=== PATIENT | male | born 1965 | race Caucasian/White ===

== ENCOUNTER 2016-08-14 02:53 | Observation (INO) | payer OTHER ==
[~2016-08-14] VITALS: Ht 180.3 cm; Wt 98.0 kg
[~2016-08-14 02:53] MED LIST: ALBUTEROL0.09 MG/A1 INH; AUGMENTIN 875 M1 TAB PO; AUGMENTIN 875875 MG PO; BACTRIM DS 8001 TAB PO; BENTYL20 MG PO; CIPRO 500MG TA500 MG PO; DICLOFENAC POTA50 M1 PO; ENDOCET 325 MG-1 TA1 PO; FLAG500 PO; FLOMAX0.4 M1 PO; GOOD SENSE ASPI81 M1 PO; HYDROCODONE/ACE1 TA1 PO; INDOMETHACIN25 MG PO; MEDROL DOSEPAK1 PAC PO; METRONIDAZOLE500 MG PO; MOTRIN 600 MG600 MG; MOTRIN600 MG PO; NEXIUM 40MG40 MG PO; PERCOCET 325 MG1 TA2 PO; PERCOCET 5-3251 EACH PO; PLAVIX 75MG TAB75 MG PO; PREDNISONE 20MG20 MG PO; PROTONIX 40MG T40 MG PO; TORADOL10 MG PO; TUMS500 MG PO; ULTRAM50 M1 PO; VICODIN5-300 PO; ZOFRAN ODT4 M1 SL
[2016-08-14 14:45] VITALS: BP 132/86
--- NOTE | 2016-08-14 15:13 | Admission Core Measures ---
Admission Meds I reviewed the following Meds: Current Medications Sig/Oz Start time Last Medication Dose Stop Time Status Admin Acetaminophen 650 MG Q6P PRN 08/14 1500 AC (Tylenol) Cefazolin Sodium 2 GM IQ8 08/14 1600 AC (Kefzol) 08/15 0029 N/A 1 UNIT (No Carrier) Docusate Sodium 100 MG BID 08/14 2200 AC (Colace) Heparin Sodium 5,000 UNIT Q8 08/14 2200 AC (Porcine) Hydromorphone HCl 1 MG Q2-3 HRS NEEDED.. 08/14 1500 AC (Dilaudid) Ketorolac 30 MG Q6-PRN PRN 08/14 1500 AC Tromethamine (Toradol) Ondansetron HCl 4 MG Q6P PRN 08/14 1500 AC (Zofran) Oxycodone/ 1 TAB Q4P PRN 08/14 1500 AC Acetaminophen (Percocet) Oxycodone/ 2 TAB Q4P PRN 08/14 1500 AC Acetaminophen (Percocet) Acute Coronary Syndrome Inclusion Criteria ACS Diagnosis No Inpatient Core Measures LDL Reminder: If No, please order W/I first 24hr of stay Congestive Heart Failure Inclusion Criteria CHF Diagnosis No Cerebrovascular accident Inclusion Criteria CVA/TIA Diagnosis No Inpatient Core Measures Bedside Swallow Eval Reminder: If BSE failed, place ST order Antithrombotic Reminder: Order Antithrombotic Medication by end of day 2 Antithrombotic Reminder: Document Reason Antithrombotic Not ordered by end of day 2 AFIB/Flutter Reminder: If Present, add to problem list AFIB/Flutter Reminder: Order Anticoag Medication for pts with AFIB/Flutter Atherosclerosis Reminder: If Present, add to problem list LDL Reminder: If No, please order W/I first 24hr of stay PT Order Reminder: If No, please order Venous thromboembolism Inpatient Core Measures VTE Risk Factors: Age > 40, Surgery VTE Prophylaxis Ordered Inpt Mech & Pharm No Mech VTE prophylaxis d/t No contraindications No VTE Pharm Prophylaxis d/t No contraindications Inclusion Criteria - Per Current guidelines, there needs to be overlap - treatment for the first 5 days of Warfarin therapy. - Parenteral Anticoagulation (IV or SC) needs to be - given along with Warfarin therapy. VTE Diagnosis No VTE Type NONE VTE Confirmed by (Test) NONE Problem List As ranked by this Provider includes Assessment & Plan 1. S/P repair of ventral hernia 2. Ventral hernia HOME MEDS Home Med List Diclofenac Potassium 50 MG TABLET 1 TAB PO TID PRN PAIN Oxycodone HCl/Acetaminophen (Percocet 5-325 MG Tablet) 1 EACH TABLET 1-2 TAB PO Q4P PRN PAIN Tramadol HCl (Ultram) 50 MG TABLET 1-2 TAB PO Q6P PRN PAIN
--- NOTE | 2016-08-14 15:26 | PN- General Surgery ---
Subjective Subjective: Reports "soreness". Just arrived from [facility]. Voided 125 mls. No nausea. Eager to try clears. Denies dizziness. No chest pains. No shortness of breath. Objective Vital Signs and I&Os Intake & Output 08/14 1600 08/14 0800 08/14 0000 08/13 1600 08/13 0800 08/13 0000 Intake Total Output Total Balance Patient 216 lb Weight vitals stable (pacu sheet reviewed) Physical Exam: General - alert & oriented x 3. comfortable. no acute distress. Lungs - clear bilaterally. no w/r/r. Cardiac - s1s2. reg. Abdomen - soft. abdominal binder in place. ROBE drain with scant bloody drainage. allison drain hidden under dressing. dressing c/d/i. Extremities - warm bilaterally. no c/c/e. calves soft and nontender b/l. athrombics active. Assessment/Plan Assessment/Plan This 51 year old white male is POD#0 s/p open repair ventral incisional hernia with mesh, JPx1, allison drainx1 advance diet as tolerated percocet/dilaudid/toradol prn pain control abdominal binder as desired for comfort hep sc - dvt ppx monitor ROBE drain. likely remove both the ROBE drain and allison prior to discharge in the morning ancef x 2 bulmaro-operatively will d/w Core Measures/Miscellaneous Venous Thromboembolism VTE Risk Factors: Age > 40, Smoking, Surgery VTE Contraindications: No Contraindications VTE Prophylaxis Ordered Inpt Mech & Pharm VTE Diagnosis: No VTE Type: NONE VTE Confirmed by (Test): NONE Beta Sara Is Beta Sara a Home Med? No Antibiotics Is Patient on Antibiotics? Yes If Yes: prophylaxis
[2016-08-14] MEDS ORDERED: PERCOCET 5-3251 EACH PO (15:28)
[2016-08-14] MEDS ORDERED: DOCUSATE SODIU100 M3 PO (15:28)
--- NOTE | 2016-08-14 15:32 | Patient Discharge Instructions ---
Discharge Instructions General Discharge Information You were seen/treated for: ventral incisional hernia You had these procedures: open repair ventral incisional hernia (08/14/16) Watch for these problems: fever>101.3, increased pain, redness/swelling/drainage Call Surgeon to remove: [facility] (around post-op day #10-14) No bath, but you may shower: Yes Other wound care: dry guaze dressing change daily, as needed Apply bacitracin to old drain site and at bottom of mid-line incision with each dressing change for 7 days. Diet Continue normal diet: Yes Recommended Diet: Regular Activity Full Activity/No Limits: No Activity Self Limited: Yes Pounds, do NOT lift more than: 10 Activity Limited to: Weight bear as tolerated Other activity limits: abdominal binder as desired for comfort Acute Coronary Syndrome Inclusion Criteria At DC or during hospital stay patient has or had the following: ACS DIAGNOSIS No Discharge Core Measures Meds if any: Prescribed or Continued at Discharge Meds if any: NOT Prescribed or Continued at Discharge Congestive Heart Failure Inclusion Criteria At DC or during hospital stay patient has or had the following: CHF DIAGNOSIS No Discharge Core Measures Meds if any: Prescribed or Continued at Discharge Meds if any: NOT Prescribed or Continued at Discharge Cerebrovascular accident Inclusion Criteria At DC or during hospital stay patient has or had the following: CVA/TIA Diagnosis No Discharge Core Measures Meds if any: Prescribed or Continued at Discharge Meds if any: NOT Prescribed or Continued at Discharge Venous thromboembolism Inclusion Criteria VTE Diagnosis No VTE Type NONE VTE Confirmed by (Test) NONE Discharge Core Measures - Per Current guidelines, there needs to be overlap - treatment for the first 5 days of Warfarin therapy. - If discharged on Warfarin prior to 5 days of - overlap therapy, the patient will need to be - assessed for post discharge needs including - *Post discharge parental anticoagulation - *Warfarin and/or parental anticoagulation education - *Follow up date to check INR post discharge At least 5 days overlap therapy as Inpatient No Meds if any: Prescribed or Continued at Discharge Note: Overlap Therapy is Warfarin and Anticoagulant Meds if any: NOT Prescribed or Continued at Discharge
[2016-08-14 17:22] VITALS: BP 132/92
[2016-08-14 19:33] VITALS: BP 138/90
[2016-08-14 21:30] VITALS: BP 126/90
[2016-08-15 01:48] VITALS: BP 104/70
[2016-08-15 06:29] VITALS: BP 130/80
--- NOTE | 2016-08-15 07:08 | PN- General Surgery ---
See Addendum Subjective Subjective: Patient complaining of abdominal pain that has not responded adequately to current pain regimen. He states that he has been having a difficult time taking a deep breath and also he feels that he has to cough and is unable to expectorate his chest congestion. He denies chest pain and shortness of breath. He denies nausea and vomitting. He denies flatus. He denies discomfort to bilateral upper and lower extremities. Objective Vital Signs and I&Os Vital Signs Date Time Temp Pulse Resp B/P Pulse O2 O2 Flow FiO2 Ox Delivery Rate 08/15 0629 99.3 92 20 130/80 94 Nasal 2.0L Cannula 08/15 0148 98.9 75 20 104/70 97 Nasal 2.0L Cannula 08/14 2130 98.3 65 20 126/90 97 Nasal 2.0L Cannula 08/14 1933 97.6 76 20 138/90 98 Nasal 2.0L Cannula 08/14 1722 98.1 77 20 132/92 99 Nasal 2.0L Cannula 08/14 1445 98.2 74 16 132/86 96 Nasal 2.0L Cannula 08/14 1445 96 Nasal 2.0L Cannula Intake & Output 08/15 0800 08/15 0000 08/14 1600 08/14 0800 08/14 0000 08/13 1600 Intake Total 950 Output Total 675 Balance 275 Intake, IV 800 Intake, Oral 150 Output, Urine 675 Patient 216 lb 216 lb Weight Physical Exam: General: Alert and oriented x3, no acute distress Cardiac: RRR, s1s2 Pulm: Bilateral upper lobe sounds, anterior auscultation, with expiratory wheezes Abdomen: Incisional tenderness, hypoactive bowel sounds, sanguinous drainage noted to inferior aspect of dressing, ROBE drain with sanguinous dressing, abdominal binder in place Extremities: Moves all extremities, distal sensation intact, bilateral calves soft and non-tender Assessment/Plan Assessment/Plan This is a 51 year old male POD 1, s/p repair ventral hernia -Be sure to give po pain medications, has percocet ordered q 4 prn but has been mainly receiving iv meds for pain relief -Continue to advance diet as tolerated -D/C IV fluid -Respiratory therapy to evaluate, consider nebulizer treatment if needed -Incentive spirometer -Wean O2 -OOB -Dr Cordon to see this am, may donald black and allison -Possible dc today if pain under control Core Measures/Miscellaneous Venous Thromboembolism VTE Risk Factors: Age > 40, Smoking, Surgery VTE Contraindications: No Contraindications VTE Prophylaxis [facility] VTE Diagnosis: No VTE Type: NONE VTE Confirmed by (Test): NONE Beta Sara Is Beta Sara a Home Med? No Antibiotics Is Patient on Antibiotics? Yes If Yes: prophylaxis
[2016-08-15 10:40] VITALS: BP 108/70
[2016-08-15 14:20] VITALS: BP 108/70
[2016-08-15 17:38] VITALS: BP 126/80
--- NOTE | 2016-08-15 20:14 | NUR ---
1540- ABDOMINAL DRESSING WITH BLOODY DRAINAGE AT DISTAL ASPECT OF DRESSING. PT COMPLAINS OF PAIN 8/10 AFTER PAIN MEDICATION. SURG RAN CABRERA NOTIFIED OF ABOVE AND TO ASSESS AT BEDSIDE. 1615- SURG RAN CABRERA AT BEDSIDE. DRESSING TO BE REINFORCED, NOT CHANGED. ABDOMINAL PAD PLACED TO REINFORCE DRESSING. NO NEW ORDERS FOR PAIN MEDICATION.
[2016-08-15 21:54] VITALS: BP 130/64
--- NOTE | 2016-08-16 07:12 | PN- General Surgery ---
Subjective Subjective: NAEO. Patient without new c/o. Pain controlled. Tolerating PO, passing flatus but no BM. OOB and ambulating. Denies CP/SOB. Objective Vital Signs and I&Os Vital Signs Date Time Temp Pulse Resp B/P Pulse O2 O2 Flow FiO2 Ox Delivery Rate 08/15 2153 99.8 85 20 130/64 94 Room Air 08/15 2012 91 Room Air 08/15 1755 92 Room Air 08/15 1738 99.2 91 20 126/80 08/15 1420 98.1 83 20 108/70 92 Nasal 2.0L Cannula 08/15 1040 97.6 70 20 108/70 92 Nasal 2.0L Cannula 08/15 0847 95 Nasal 2.0L Cannula 08/15 0830 Nasal 2.0L Cannula Intake & Output 08/16 0800 08/16 0000 08/15 1600 08/15 0800 08/15 0000 08/14 1600 Intake Total 350 1160 800 950 Output Total 110 35 520 675 Balance 240 1125 280 275 Intake, IV 400 800 800 Intake, Oral 350 760 0 150 Number 0 0 Bowel Movements Output, 10 35 45 Drainage Output, Urine 100 475 675 Patient 216 lb Weight Current Medications: Current Medications Sig/Oz Start time Last Medication Dose Route Stop Time Status Admin Acetaminophen 650 MG Q6P PRN 08/14 1500 AC PO Albuterol Sulfate 3 ML BID 08/15 1000 AC 08/15 INH 2011 Dextrose/Sodium 1,000 ML Q10H 08/14 1500 DC 08/15 Chloride IV 0130 Docusate Sodium 100 MG BID 08/14 220 AC 08/15 PO 210 Heparin Sodium 5,000 UNIT Q8 08/14 2199 AC 08/16 (Porcine) SC 0527 Hydromorphone HCl 1 MG Q2-3 HRS NEEDED.. 08/14 1500 AC 08/16 IV 0324 Ketorolac 30 MG .STK-MED ONE 08/15 2101 DC Tromethamine IM 08/15 2102 Ketorolac 30 MG Q6-PRN PRN 08/14 1500 AC 08/15 Tromethamine IV 210 Omeprazole 20 MG DAILY AC 08/15 1416 AC 08/16 PO 0527 Ondansetron HCl 4 MG Q6P PRN 08/14 1500 AC IV Oxycodone/ 1 TAB Q4P PRN 08/14 1500 AC Acetaminophen PO Oxycodone/ 2 TAB Q4P PRN 08/14 1500 AC 08/16 Acetaminophen PO 0530 Patient Medication 1 ED .STK-MED ONE 08/15 1338 DC Teaching ED 08/15 1339 Polyethylene Glycol 17 GM DAILY 08/15 1604 AC 08/15 PO 1755 Senna/Docusate Sodium 1 TAB DAILY 08/15 1604 AC 08/15 PO 1755 Assessment/Plan Assessment/Plan 51yo M POD#2 s/p open ventral hernia repair with ROBE drain placement and [place]. AVSS, patient progressing well. - Pain control - Dressing changed bedside. Daily dressing changes by RN. - Possibly DC ROBE drain and/or allison drain - I/O's - continue regular diet - OOB and ambulate - DC planning - Will d/w attending Core Measures/Miscellaneous Venous Thromboembolism VTE Risk Factors: Age > 40, Smoking, Surgery VTE Contraindications: No Contraindications VTE Prophylaxis Ordered Inpt Mech & Pharm VTE Diagnosis: No VTE Type: NONE VTE Confirmed by (Test): NONE Beta Sara Is Beta Sara a Home Med? No Antibiotics Is Patient on Antibiotics? No
[2016-08-16 07:29] VITALS: BP 120/70
--- NOTE | 2016-08-16 12:15 | Operative Report ---
Operative/Inv Procedure Report Surgery Date: 08/14/16 Name of Procedure: Open mesh repair of ventral incisional hernia, along with bilateral advancement rectus muscular fascial flap reconstruction. Pre-Operative Diagnosis: Ventral incisional hernia Post-Operative Diagnosis: Same Estimated Blood Loss: [place] Surgeon/Front Counter Attendant: JAMIE QUINTERO,DANO TONG Anesthesia: general endotracheal tube Operative/Procedure Note Note: Patient was placed on the OR table in the supine position. After successful induction of general anesthesia, another timeout was done, antibiotics given, the abdomen was clipped prepped and draped in the usual sterile fashion. The hernia was essentially beneath the entire length of the laparotomy scar. This attenuated scar was infiltrated local anesthetic and then the incision was made with a 10 blade. This was deepened with cautery through the subcutaneous fat and the herniated bowel and omentum and overlying sac were dissected circumferentially off the fascia, defining the true edges of the defect. To do this the thickened attenuated sac was mostly excised and the adherent omentum to the anterior peritoneal surface was also along with some adhesions between the sac and the peritoneum and the bowel, we needed to clear off beyond the edges of the defect to make room for the mesh. As mentioned essentially the whole laparotomy incision was herniated with the rectus muscle retracted laterally, measuring roughly 18 cm long, but the muscle itself was intact but at this point could not be pulled to the midline without significant tension. After clearing off all the edges we laid the dual sided elliptical ventral X mesh on the bowel, actually 2 of them end-to-end a 12 cm long and 14 cm. Piece of these together with interrupted 2-0 Prolene sutures. Then we would gently pull remnants of fascia over the mesh and tack it down in multiple places with short runs of 0 Maxon, interrupted 0 Vicryl in interrupted 2-0 Prolene sutures the anus to tack the undersurface of the rectus to the mesh, trying to stay symmetric, some areas especially on the ends we were able to close all the way to the midline and some towards the middle still left mesh exposed. Then to create the advancement flaps I deliberately cut into the rectus sheath anteriorly about an inch off the medial edges all the way around and then you would mobilize that fascia to the midline and close it again with a combination of Maxon Prolene and Vicryl as mentioned above, the rectus muscle was advanced bilaterally to the midline, each side moving 3-4 cm each, covering both the defect and the mesh completely. Then this was covered by sewing together remnants of excised hernia sac which included some remnants of Bio, we also inserted a round Chan-Hobson drain on top of the muscle reconstruction underneath the subcutaneous closure and then on top in the thin subcutaneous layer we placed a Zofia just under the skin which was reapproximated with nroma having brought it together and a few areas with interrupted 3-0 Vicryl sutures subdermally. This was covered with gauze and tape the ROBE exited laterally and secured with a 3-0 nylon suture. EBL minimal lap and sponge counts correct wound expectancy clean IV fluids crystalloid complications none patient tolerated the procedure well was awakened extubated returned to the recovery room in satisfactory condition.
--- NOTE | 2016-08-16 13:10 | Event Note ---
Event Note Event Note: ROBE drain and Zofia drain dc'd bedside. ROBE drain taken off of bulb suction and sutures cut prior to removal. Sites dressed with sterile gauze and bacitracin. Patient tolerated procedure well.
[2016-08-16 13:14] VITALS: BP 130/70
== END 2016-08-16 14:00 ==
LOC: ENRESERVDT → ENRESERVTM → STS 02:53 → PACUH 11:13 → ENPENDDIS 11:13 → PACUH 11:13 → 2NA 14:35
PROVIDERS: ADMIT Surgery
DX: K43.2 Incisional hernia without obstruction or gangrene (principal); F17.200 Nicotine dependence, unspecified, uncomplicated; K21.9 Gastro-esophageal reflux disease without esophagitis
CPT/HCPCS: 1255; 1263; 1328; 1425; 1530; 1748; 96372; C1781; G0378; J0131; J0690; J1170; J1200; J1644; J1885; J2405; J7042

== ENCOUNTER 2017-11-22 07:36 | Inpatient (IN) | payer OTHER ==
[~2017-11-22] VITALS: Ht 182.9 cm; Wt 89.0 kg
[~2017-11-22 07:36] MED LIST changes: +DOCUSATE SODIU100 M3 PO
[2017-11-22 09:33] LABS: ABSOLUTE BASOPHIL COUNT 0 /CUMM (0.0-0.2); ABSOLUTE EOSINOPHIL COUNT 0.2 /CUMM (0.0-0.7); ABSOLUTE GRANULOCYTE CT 7.4 /CUMM (1.4-6.5); ABSOLUTE LYMPH COUNT 1.6 /CUMM (1.2-3.4); ABSOLUTE MONOCYTE COUNT 0.7 /CUMM (0.10-0.60); BASOPHIL % 0.4 % (0.0-2.0); EOSINOPHIL % 1.6 % (0-5); GRANULOCYTE % 74.7 % (42.2-75.2); HEMATOCRIT 47.8 % (42-52); MEAN CORPUSCULAR HGB 30.8 PG (27.0-31.0); MEAN CORPUSCULAR HGB CONC 34.5 G/DL (33.0-37.0); MEAN CORPUSCULAR VOLUME 89.4 FL (80.0-94.0); MEAN PLATELET VOLUME 8.1 FL (7.4-10.4); PLATELET COUNT 192 /CUMM (130-400); RBC DISTRIBUTION WIDTH 13.9 % (11.5-14.5); RED BLOOD CELL CT 5.34 /CUMM (4.70-6.10); WHITE BLOOD CELL COUNT 9.9 /CUMM (4.8-10.8)
--- NOTE | 2017-11-22 09:59 | ED GI/GU/ABDOMINAL COMPLAINT ---
History of Present Illness General Chief Complaint: Abdominal Pain/Flank Pain Stated Complaint: RIGHT SIDED ABD PAIN, X 3 DAYS Source: patient, family, old records Exam Limitations: no limitations Vital Signs & Intake/Output Vital Signs & Intake/Output Vital Signs Date Time Temp Pulse Resp B/P B/P Pulse O2 O2 Flow FiO2 Mean Ox Delivery Rate 11/22 1548 60 16 152/95 100 Room Air 11/22 1340 97.5 54 18 153/90 98 Room Air 11/22 1145 65 18 147/97 99 Room Air 11/22 1044 98.4 88 18 140/70 97 Room Air 11/22 0904 99 Room Air 11/22 0752 98.5 89 18 143/94 97 Room Air Allergies Coded Allergies: meperidine (From DEMEROL) ("I GOT VERY MEAN" 12/08/15) Reconcile Medications No Known Home Medications Triage Note: PT STATES HE IS GETTING BAD PAIN IN HIS LEFT SIDE THAT STARTED SATURDAY. PT REPORTS THE PAIN USE TO COME AND GO AND NOW IT JUST STAYS THERE. PT DENIES DIFFICULTY URINATING. Triage Nurses Notes Reviewed? yes Duration: constant, continues in ED Timing: recent history Quality/Severity: aching, sharpness, severe Location: right lower quadrant, right upper quadrant Radiation: no radiation Activities at Onset: rest Prior Abdominal Problems: similar symptoms Past Sexual History: Unobtainable at this time Modifying Factors: Worsens With: coughing, lying down, movement, palpation. Associated Symptoms: abdominal pain, fever/chills, nausea/vomiting HPI: 2-3 days prior to admission patient complains of right upper quadrant discomfort described as sharp constant worse with movement palpation associated with nausea and chills. Prior to admission the pain increased in severity. He denies fever chills vomiting diarrhea chest pain cough shortness breath headache dysuria rash bleeding. Past History Travel History Traveled to [place] past 21 day No Medical History Any Pertinent Medical History? 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 FHx: emphysema FATHER, . FH: diabetes mellitus Hx Contributory? No Review of Systems Review of Systems Constitutional: Reports: see HPI, chills, malaise. EENTM: Reports: no symptoms. Respiratory: Reports: no symptoms. Cardiovascular: Reports: no symptoms. GI: Reports: see HPI, abdominal pain, nausea. Genitourinary: Reports: no symptoms. Musculoskeletal: Reports: no symptoms. Skin: Reports: no symptoms. Neurological/Psychological: Reports: no symptoms. Hematologic/Endocrine: Reports: no symptoms. Immunologic/Allergic: Reports: no symptoms. All Other Systems: Reviewed and Negative Physical Exam Physical Exam General Appearance: well developed/nourished, alert, awake, anxious, moderate distress Head: atraumatic, normal appearance Eyes: Bilateral: normal appearance, PERRL, EOMI, normal inspection. Ears, Nose, Throat, Mouth: hearing grossly normal, moist mucous membrane Neck: normal inspection, supple, full range of motion, normal alignment, no midline tenderness Respiratory: normal breath sounds, chest non-tender, no respiratory distress, quiet respiration, lungs clear Cardiovascular: regular rate/rhythm, normal peripheral pulses, norml femoral pulses equa Peripheral Pulses: 4+ carotid (R), 4+ carotid (L) Gastrointestinal: soft, no organomegaly, guarding, rebound, tenderness Male Genitals: normal genitalia Back: normal inspection, normal range of motion, no vertebral tenderness Extremities: normal range of motion, no ligament instability Neurologic/Psych: no motor/sensory deficits, awake, alert, oriented x 3, normal gait, normal mood/affect, 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 No Sepsis Present: No Sepsis Focused Exam Completed? No Progress Differential Diagnosis: diverticulitis, gastritis, hernia, pancreatitis, PUD/ GERD, UTI/pyelo Plan of Care: Orders Procedure Date/time Status Nothing by Mouth 11/22 D Active Pathway - chart 11/22 1402 Active House Staff 11/22 1402 Active Patient Data 11/22 1402 Active Code Status 11/22 1402 Active Patient Data 11/22 1350 Active OXYGEN SETUP (GEN) 11/22 1150 Active Saline Lock 11/22 1150 Active Admit to inpatient 11/22 1150 Active Vital Signs 11/22 1150 Active Activity/Ambulation 11/22 1150 Active Code Status 11/22 1150 Complete LACTIC ACID 11/22 1136 Active Intake & Output 11/22 0903 Active LIPASE 11/22 0836 Complete LACTIC ACID 11/22 0836 Complete COMPREHENSIVE METABOLIC PANEL 11/22 0836 Complete CBC WITHOUT DIFFERENTIAL 11/22 0836 Complete URINALYSIS 11/22 0756 Complete VTE Mechanical Prophylaxis 11/22 UNK Active Current Medications Sig/Oz Start time Last Medication Dose Stop Time Status Admin Lidocaine 1 PAT DAILY 11/22 1515 AC (Lidoderm) Laboratory Tests 11/22/17 0922: Anion Gap 9, Estimated GFR > 60, BUN/Creatinine Ratio 17.3, Glucose 91, Lactic Acid 0.9, Calcium 9.4, Total Bilirubin 0.5, AST 14 L, ALT 22, Alkaline Phosphatase 80, Total Protein 7.4, Albumin 4.1, Globulin 3.3, Albumin/Globulin Ratio 1.2, Lipase 620 H, CBC w Diff NO MAN DIFF REQ, RBC 5.34, MCV 89.4, MCH 30.8, MCHC 34.5, RDW 13.9, MPV 8.1, Gran % 74.7, Lymphocytes % 16.6 L, Monocytes % 6.7, Eosinophils % 1.6, Basophils % 0.4, Absolute Granulocytes 7.4 H, Absolute Lymphocytes 1.6, Absolute Monocytes 0.7 H, Absolute Eosinophils 0.2 , Absolute Basophils 0 11/22/17 0801: Urine Color YEL, Urine Clarity CLEAR, Urine pH 6.0, Ur Specific [place] >= 1.030 , Urine Protein NEG, Urine Ketones NEG, Urine Nitrite NEG, Urine Bilirubin NEG, Urine Urobilinogen 0.2, Ur Leukocyte Esterase NEG, Ur Microscopic SEDIMENT EXAMINED, Urine RBC 3-5, Urine WBC 5-10 H, Ur Epithelial Cells FEW, Urine Mucus FEW, Urine Hemoglobin MOD H, Urine Glucose NEG Diagnostic Imaging: Viewed by Me: CT Scan. Discussed w/RAD: CT Scan. Radiology Impression: No acute abnormality. No change from the prior exam. Status post cholecystectomy. Stable mild intrahepatic and extrahepatic biliary ductal dilatation. Initial ED EKG: none Departure Departure Time of Disposition: 1137 Disposition: STILL A PATIENT Condition: Stable Clinical Impression Primary Impression: Pancreatitis, acute Secondary Impressions: Dehydration Referrals: Rosalio Bar MD (PCP/Family) Departure Forms: Customer Survey General Discharge Information Prescriptions: Current Visit Scripts No Known Home Medications Admission Note Spoke With: Rosalio Bar MD Documentation of Exam: Documentation of any treatments & extenuating circumstances including Concerns Regarding Discharge (functional status, medication knowledge or non-compliance, living conditions, etc.) that warrant an admission rather than observation: uncontrollable pain NPO IV hydration IV analgesia serial lab exam GI evaluation medication adjustment continuing care discharge planning
--- NOTE | 2017-11-22 11:31 | CT SCAN REPORT ---
EXAMINATION: CT ABDOMEN AND PELVIS WITH CONTRAST CLINICAL INFORMATION: Right upper quadrant pain and tenderness. History of multiple abdominal surgeries over the last 2 years. COMPARISON: CT scan of the abdomen and pelvis dated 07/11/2017. TECHNIQUE: Multidetector volumetric imaging was performed of the abdomen and pelvis following IV administration of 94 mL of Optiray 320 intravenous contrast. Sagittal and coronal reformatted images were obtained on the technologist's workstation. DLP: 515.06 mGy-cm FINDINGS: LUNG BASES: There is minor bibasilar subsegmental atelectasis. LIVER, GALLBLADDER, AND BILIARY TREE: The liver is normal in size, shape, and attenuation. No focal hepatic lesion is present. The gallbladder is surgically absent. There is stable mild intrahepatic and extrahepatic biliary ductal dilatation. PANCREAS: Unremarkable. SPLEEN: Unremarkable. ADRENAL GLANDS: Unremarkable. KIDNEYS AND URETERS: The kidneys are normal in size, shape, and attenuation. No hydronephrosis, hydroureter, or calculi seen. No perinephric stranding. BLADDER: Unremarkable. GASTROINTESTINAL TRACT: The stomach and small bowel are unremarkable. There is no bowel obstruction. There is no colonic wall thickening or inflammatory change. The appendix is normal. There are distal colonic anastomotic sutures, unchanged. ABDOMINAL WALL: No significant hernia is appreciated. Postsurgical changes are noted in the anterior abdominal wall. LYMPH NODES: Normal. VASCULAR: Atherosclerosis of the abdominal aorta and common iliac arteries. Normal caliber aorta. Ectasia of the common iliac arteries, left greater than right. PELVIC VISCERA: Coarse calcifications in the prostate. OSSEOUS STRUCTURES: No acute abnormality. Stable mild degenerative changes in the spine and hips. IMPRESSION: No acute abnormality. No change from the prior exam. Status post cholecystectomy. Stable mild intrahepatic and extrahepatic biliary ductal dilatation.
--- NOTE | 2017-11-22 13:58 | History & Physical ---
See Addendum Veronica Tamayo MD 11/22/17 0637: General Information and HPI MD Statement: I have seen and personally examined KEISHA MARION and documented this H&P. The patient is a 52 year old M who presented with a patient stated chief complaint of [abdominal pain]. Source of Information: patient Exam Limitations: no limitations History of Present Illness: He is 52-year-old man with past medical history of diverticulitis, kidney stones , gallstones, reversible ischemia on nuclear stress test status post cardiac cath recently in 2014 presented to the ED with a chief complaint of abdominal pain. Patient was in usual state of health until 2 days ago, following which she started developing acute 8 x 10 right upper quadrant pain radiating to the right suprapubic region. The following day patient started developing nausea with no vomiting. He denies abdominal trauma, fever, chills, weakness, chest pain, shortness of breath, pain in his pelvic region. Patient had multiple recurrent diverticulitis in the past and was operated for the same. Patient had a Pippa procedure done with temporary colostomy followed by revision surgery. 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 FHx: emphysema FATHER, . FH: diabetes mellitus Psychosocial History Where do you live? Home Who Do You Live With? self Services at Home: Nursing Primary Language: Macedonian Smoking Status: Current Everyday Smoker ETOH Use: denies use Illicit Drug Use: denies illicit drug use Functional Ability ADLs Independent: dressing, eating, toileting, bathing. Ambulation: independent IADLs Independent: shopping, housework, finances, food prep, telephone, transportation , medication admin. Sexual History Past Sexual History Unobtainable at this time Review of Systems Review of Systems Constitutional: Reports: no symptoms, see HPI. Cardiovascular: Reports: no symptoms. Respiratory: Reports: no symptoms. GI: Reports: abdominal pain, nausea. Genitourinary: Reports: dysuria. Musculoskeletal: Reports: joint pain. Exam & Diagnostic Data Last 24 Hrs of Vital Signs/I&O Vital Signs Date Time Temp Pulse Resp B/P B/P Pulse O2 O2 Flow FiO2 Mean Ox Delivery Rate 11/22 1340 97.5 54 18 153/90 98 Room Air 11/22 1145 65 18 147/97 99 Room Air 11/22 1044 98.4 88 18 140/70 97 Room Air 11/22 0904 99 Room Air 11/22 0752 98.5 89 18 143/94 97 Room Air Intake & Output 11/22 1600 11/22 0800 11/22 0000 Intake Total 1000 Output Total Balance 1000 Intake, IV 1000 Patient 190 lb Weight Weight Reported by Patient Measurement Method Physical Exam General Appearance Alert, Oriented X3, Cooperative, No Acute Distress HEENT PERRLA Neck No JVD, No thryomegaly Cardiovascular Normal S1, Normal S2, No Murmurs Lungs Normal Air Movement Last 24 Hrs of Labs/Steven: Laboratory Tests 11/22/17 0922: Anion Gap 9, Estimated GFR > 60, BUN/Creatinine Ratio 17.3, Glucose 91, Lactic Acid 0.9, Calcium 9.4, Total Bilirubin 0.5, AST 14 L, ALT 22, Alkaline Phosphatase 80, Total Protein 7.4, Albumin 4.1, Globulin 3.3, Albumin/Globulin Ratio 1.2, Lipase 620 H, CBC w Diff NO MAN DIFF REQ, RBC 5.34, MCV 89.4, MCH 30.8, MCHC 34.5, RDW 13.9, MPV 8.1, Gran % 74.7, Lymphocytes % 16.6 L, Monocytes % 6.7, Eosinophils % 1.6, Basophils % 0.4, Absolute Granulocytes 7.4 H, Absolute Lymphocytes 1.6, Absolute Monocytes 0.7 H, Absolute Eosinophils 0.2 , Absolute Basophils 0 11/22/17 0801: Urine Color YEL, Urine Clarity CLEAR, Urine pH 6.0, Ur Specific [place] >= 1.030 , Urine Protein NEG, Urine Ketones NEG, Urine Nitrite NEG, Urine Bilirubin NEG, Urine Urobilinogen 0.2, Ur Leukocyte Esterase NEG, Ur Microscopic SEDIMENT EXAMINED, Urine RBC 3-5, Urine WBC 5-10 H, Ur Epithelial Cells FEW, Urine Mucus FEW, Urine Hemoglobin MOD H, Urine Glucose NEG Assessment/Plan Assessment: He is 52-year-old man with past medical history of diverticulitis, kidney stones , gallstones, reversible ischemia on nuclear stress test status post cardiac cath recently in 2014 presented to the ED with a chief complaint of abdominal pain. Admission vitals: Temperature 97.5, pulse rate 54, respiratory rate 18, blood pressure 153/90, saturation 98 at room air Admission labs Hemoglobin 16.5, WBC 9.9, platelet count 192, sodium 143, potassium 4, BUNs 19, creatinine 1.1, Lactic acid 0.9, lipase 620. Assessment and plan Abdominal pain for evaluation Given the patient's symptoms and location my differentials are being pancreatitis, small bowel obstruction. Patient also has a 10-10 cm red lesion in his right groin. It appears to be herpes zoster/line. We placed an infectious disease consult. Yash Sanchez MD saw the patient and thinks says it is more of line and started him on doxycycline 100 twice a day. Lyme titer was sent. Resident Dr. Celaya and a condyloma spoke to her heater engineer helper Dr. Lawrence over the phone and discussed with him about the red lesion and redness in the left suprapubic region. Street Car Mechanic thinks that it is more of zoster and wanted to start him on Valtrex 1 mg 3 times a day for 7 days. We will continue current management and follow up with Lyme titer and response of the lesion with Valtrex /doxycycline. Code-full code Dictated prophylaxis-heparin As Ranked By This Provider Problem List: 1. Abdominal pain 2. RLQ abdominal pain Core Measures/Misc (03/10) Acute Coronary Syndrome ACS Diagnosis: No Congestive Heart Failure Congestive Heart Failure Diagnosis No Cerebrovascular Accident CVA/TIA Diagnosis: No VTE (View Protocol) VTE Risk Factors Age>40 No Mechanical VTE Prophylaxis d/t Other No VTE Pharm Prophylaxis d/t Other Sepsis (View protocol) Sepsis Present: No If YES complete Sepsis Event Note If YES complete Sepsis Event Note Elinor Post MD 11/22/17 0456: General Information and HPI MD Statement: I have seen and personally examined KEISHA MARION and documented this H&P. The patient is a 52 year old M who presented with a patient stated chief complaint of [pain in abdomen]. Source of Information: patient, family, old records Exam Limitations: no limitations Core Measures/Misc (03/10) Sepsis (View protocol) If YES complete Sepsis Event Note If YES complete Sepsis Event Note Resident Review Statement Resident Statement: examined this patient, discussed with agriculture intern, agreed with agriculture intern Other Findings: Patient is a 52-year-old male, chronic smoker(1PPD x 25yrs) with past medical history of asthma, GERD, dyslipidemia, history of nephrolithiasis status post lithotripsy, history of cholelithiasis status post cholecystectomy, history of rotator cuff repair, history of left carpal tunnel release, history of diverticulitis with recurrent micro perforation,underwent a Flower's procedure( August 2015 ) f/breversal of colostomy( December 2015), complicated by ventral incisional hernia status post mesh repair, admitted with chief complaints of pain in right upper and lower quadrant of the abdomen since last 3 days. According to the patient he was relatively all right 2 days ago and he woke up with the pain on circus hand. His pain was 3-4/10 and was gradually progressive and intermittent in nature. He denies for taking any medication and was not able to sleep because of the pain. Yesterday he started having nausea all over the day but not able to throw up. He was constipated and in the morning today he started having diarrhea and his pain got aggravated, thatwhy he is here. Of note he said that he was having constipation and tenesmus and nausea yesterday and today he had one loose bowel movement but denies any blood in the stool, mucus secretion, lactose intolerance,. He denies any fever, chills, vomiting, chest pain, palpitation, eating outside, trauma, blood in the stool. ED course -vital signs at the time of admission -temperature 98.5, pulse 89, respiratory rate 18, blood pressure 143/94, SPO2 97% on room air. On physical examination -he was very anxious, oral cavity normal, erythema of neck and the upper part of the chest, chest bilateral clear, heart S1-S2 normal, abdomen soft -multiple scar perez superficially and thickness of underlying intestine can be palpated, erythematous 10 x 10 cm rash on lower abdomen along with bilateral inguinal lymph node enlargement, superficial tenderness on the lower back and external rotation of right thigh. Blood workup showed -hemoglobin 16.5, hematocrit 47.8, platelet count 192, granulocytes 74.7, lymphocytes 16.6, basophils 0.4, serum sodium 143, potassium 4.0, chloride 106, carbon DEXA 28, anion gap 9, BUN 19, creatinine 1.1, glucose 91, lactic acid 0.9, calcium 9.4, total bilirubin 0.5, AST 14, ALT 22, alkaline phosphatase 80, albumin 4.1, urinalysis showed WBC 5-10, moderate hemoglobin. Assessment and plan - Patient with multiple medical problems presented with complaint of right upper and lower sided abdominal pain associated with nausea. He was having a rash in the lower abdomen, which was not typical herpetic rash, but he has superficial tenderness on the front and the back. CT scan did not show any evidence of fracture collection in the abdomen, there was dilatation of intra-and extrahepatic ducts with elevation of lipase but there was no any evidence of pancreatitis on the CT scan. He does not have any fracture, or prolapse of the disc with support his back pain. We were thinking the possibility of herpetic lesion leading to irritation of the nerve. Discussed with , advised to start patient on tablet doxycycline and wait for dermatologic input. We also talked to Dr. Roach for pain can be due to intestinal adhesions, but he thinks we should treat symptomatically. We will place dermatology and GI consult for further evaluation and management of his abdominal pain. His urinalysis did show evidence of WBC and moderate hemoglobin. He does have history of nephrolithiasis. Abdomen pain of unknown etiology possibility of pancreatitis cannot be excluded - * We will admit the patient to general medicine floor * Pain management according to the pain scale * Dermatologic consult -further evaluation to rule out herpes; will update. * Follow-up Lyme titer * Tablet doxycycline 100 mg twice daily * Follow-up GI consult for nonspecific elevation of lipase along with abdominal pain -Placed * Stool for occult blood Skin rash -? Lyme/Herpes * Dermatologic consult -further evaluation to rule out herpes; discussed with Dr Bauer, he thinks it doesnt look like herpes and neither lyme, but we cannot rule out possibility of non specific herpetic rash as patient is having pain. So we will start patient on Valtrex 1mg TID x 7 days. He want follow up of patient with in office on Saturday. * Follow-up Lyme titer * Tablet doxycycline 100 mg twice daily DVT prophylaxis -ALPs/heparin CODE STATUS -full code Diet -heart healthy diet
--- NOTE | 2017-11-22 16:13 | Cons- General Surgery ---
General Information and HPI Consulting Request Date of Consult: 11/22/17 Requested By: Rosalio Bar MD History of Present Illness: Patient presents to the emergency room with 2-3 days of progressive right lower quadrant and suprapubic abdominal pain. His appetite is suppressed but there is no association with his pain to eating. No nausea vomiting or change to his bowel function. No fevers chills or sweats. Mild dysuria. Allergies/Medications Allergies: Coded Allergies: meperidine (From DEMEROL) ("I GOT VERY MEAN" 12/08/15) Home Med List: No Known Home Medications Current Medications: Current Medications Sig/Oz Start time Last Medication Dose Route Stop Time Status Admin Lidocaine 1 PAT DAILY 11/22 1515 AC EXT Morphine Sulfate 0 .STK-MED ONE 11/22 1358 DC .ROUTE Morphine Sulfate 4 MG ONCE ONE 11/22 1345 DC / IV 11/22 1346 1403 Morphine Sulfate 0 .STK-MED ONE 11/22 1048 DC .ROUTE Morphine Sulfate 4 MG ONCE ONE 11/22 1015 DC 11/22 IV 11/22 1016 1043 Morphine Sulfate 0 .STK-MED ONE 11/22 0903 DC .ROUTE Morphine Sulfate 4 MG ONCE ONE 11/22 0845 DC / IV 06/ 0846 0855 Ondansetron HCl 0 .STK-MED ONE 11/22 0903 DC .ROUTE Ondansetron HCl 4 MG ONCE ONE 11/22 0845 DC / IV / 0846 0855 Sodium Chloride 1,000 ML BOLUS ONE 11/22 1145 DC / IV 11/22 1244 1145 Sodium Chloride 1,000 ML BOLUS ONE 11/22 0845 DC / IV 11/22 0944 0855 Past History Medical History Neurological: NONE EENT: NONE Cardiovascular: NONE Respiratory: NONE Gastrointestinal: diverticulitis, GERD, LEFT COLOSTOMY Hepatic: cholelithiasis Renal: nephrolithiasis (s/p lithotripsy) Musculoskeletal: gout, ULNAR L ELBOW SURGERY R ROTATOR CUFF SURGERY Psychiatric: anxiety Endocrine: NONE Blood Disorders: NONE Cancer(s): NONE 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 FHx: emphysema FATHER, . FH: diabetes mellitus Psychosocial History Where Do You Live? Home Who Do You Live With? self Services at Home: Nursing Primary Language: Macedonian Smoking Status: Current Everyday Smoker ETOH Use: denies use Illicit Drug Use: denies illicit drug use Functional Ability ADLs Independent: dressing, eating, toileting, bathing. Ambulation: independent IADLs Independent: shopping, housework, finances, food prep, telephone, transportation , medication admin. Review of Systems Review of Systems: No exertional chest pain or exertional dyspnea abdominal pain. HPI mild dysuria remainder 12 points negative Exam & Diagnostic Data Vital Signs and I&O Vital Signs Date Time Temp Pulse Resp B/P B/P Pulse O2 O2 Flow FiO2 Mean Ox Delivery Rate 11/22 1548 60 16 152/95 100 Room Air 11/22 1340 97.5 54 18 153/90 98 Room Air 11/22 1145 65 18 147/97 99 Room Air 11/22 1044 98.4 88 18 140/70 97 Room Air 11/22 0904 99 Room Air 11/22 0752 98.5 89 18 143/94 97 Room Air Intake & Output 11/22 1600 11/22 0800 11/22 0000 11/21 1600 11/21 0800 11/21 0000 Intake Total 1000 Output Total Balance 1000 Intake, IV 1000 Patient 190 lb Weight Weight Reported by Patient Measurement Method Physical Exam: General: Looks his stated age normal body habitus no distress HEENT: Anicteric PERRLA EOMI Abdomen: Soft mild tenderness suprapubic and right lower quadrant without guarding. No hernias no mass Extremities no cyanosis clubbing or edema Last 24 Hours of Labs: Laboratory Tests 11/22 11/22 0922 0801 Chemistry Sodium (137 - 145 mmol/L) 143 Potassium (3.5 - 5.1 mmol/L) 4.0 Chloride (98 - 107 mmol/L) 106 Carbon Dioxide (22 - 30 mmol/L) 28 Anion Gap (5 - 16) 9 BUN (9 - 20 mg/dL) 19 Creatinine (0.7 - 1.2 mg/dL) 1.1 Estimated GFR (>60 ml/min) > 60 BUN/Creatinine Ratio (7 - 25 %) 17.3 Glucose (65 - 99 mg/dL) 91 Lactic Acid (0.7 - 2.1 mmol/L) 0.9 Calcium (8.4 - 10.2 mg/dL) 9.4 Total Bilirubin (0.2 - 1.3 mg/dL) 0.5 AST (17 - 59 U/L) 14 L ALT (21 - 72 U/L) 22 Alkaline Phosphatase (< 127 U/L) 80 Total Protein (6.3 - 8.2 g/dL) 7.4 Albumin (3.5 - 5.0 g/dL) 4.1 Globulin (1.9 - 4.2 gm/dL) 3.3 Albumin/Globulin Ratio (1.1 - 2.2 %) 1.2 Lipase (23 - 300 U/L) 620 H Hematology CBC w Diff NO MAN DIFF REQ WBC (4.8 - 10.8 /CUMM) 9.9 RBC (4.70 - 6.10 /CUMM) 5.34 Hgb (14.0 - 18.0 G/DL) 16.5 Hct (42 - 52 %) 47.8 MCV (80.0 - 94.0 FL) 89.4 MCH (27.0 - 31.0 PG) 30.8 MCHC (33.0 - 37.0 G/DL) 34.5 RDW (11.5 - 14.5 %) 13.9 Plt Count (130 - 400 /CUMM) 192 MPV (7.4 - 10.4 FL) 8.1 Gran % (42.2 - 75.2 %) 74.7 Lymphocytes % (20.5 - 51.1 %) 16.6 L Monocytes % (1.7 - 9.3 %) 6.7 Eosinophils % (0 - 5 %) 1.6 Basophils % (0.0 - 2.0 %) 0.4 Absolute Granulocytes (1.4 - 6.5 /CUMM) 7.4 H Absolute Lymphocytes (1.2 - 3.4 /CUMM) 1.6 Absolute Monocytes (0.10 - 0.60 /CUMM) 0.7 H Absolute Eosinophils (0.0 - 0.7 /CUMM) 0.2 Absolute Basophils (0.0 - 0.2 /CUMM) 0 Urines Urine Color (YEL,AMB,STR) YEL Urine Clarity (CLEAR) CLEAR Urine pH (5.0 - 8.0) 6.0 Ur Specific [place] (1.001 - 1.035) >= 1.030 Urine Protein (NEG,<30 MG/DL) NEG Urine Ketones (NEG) NEG Urine Nitrite (NEG) NEG Urine Bilirubin (NEG) NEG Urine Urobilinogen (0.1 - 1.0 EU/dl) 0.2 Ur Leukocyte Esterase (NEG) NEG Ur Microscopic SEDIMENT EXAMINED Urine RBC (0 - 5 /HPF) 3-5 Urine WBC (0 - 2 /HPF) 5-10 H Ur Epithelial Cells (NONE,FEW) FEW Urine Mucus (FEW,NONE) FEW Urine Hemoglobin (NEG) MOD H Urine Glucose (N MG/DL) NEG Imaging Results: CT scan of the abdomen pelvis was personally reviewed. The findings show no evidence of intra-abdominal inflammatory process. Specifically there is no diverticulitis or appendicitis. His incisional hernia repair is intact without evidence of recurrence Assessment/Plan Assessment/Plan Patient with back and abdominal pain unclear etiology. There is no evidence of appendicitis or recurrent diverticulitis. His hernia repair performed by Domingo Cordon MD is intact without evidence of recurrence. No surgically treatable disease. From my standpoint patient can eat. Defer further workup to primary team. Please call with concerns Consult Acknowledgment - Thank you for your consult request.
--- NOTE | 2017-11-22 16:41 | PN- Student ---
Subjective Subjective: HPI: 52 y/o M presented to the ER with a cc of abdominal. Patient reported being in his usual state of health until two day prior to admission started to have abdominal pain located in the right lower quadrant with no radiation. He mention that the pain started about 3-4/10 and progressively increased in intensity to 10/10. During this time he reported having nausea, but no vomiting. No change in eating habits, but did mentioned having less apetitie since pain started. Also noted having contipation for couple of days and then eventually soft bowel movements. He reported that this is different that his baseline after colectomy. PMHX: diverticulitis, Gerd, cholelithiasis, nephrolithiasis s/p lithotripsy, gout, anxiety, reversible ischemia on nuclear stress test status post cardiac cath recently in 2014 PSHX: left colectomy-Hartmans procedure with colostomy s/p reversal (09/05/15), cholecystectomy, left elbow surgery, rotator cuff surgery, SHx: smoker (pack a day), alcohol occasionally, denied illlicit drugs Sexual Hx: nonactive sexually, no hx of sexually transmitted disease FamHx: Dad Emphysema Mom OR, DM +ROS: joint pain, dysuria -ROS: headache, blurry vision, sore throat, chest pain, SOB, cough, weight change, abdominal trauma, fever, chills, weakness, groin pain Objective Objective: Vital Signs Date Time Temp Pulse Resp B/P B/P Pulse O2 O2 Flow FiO2 Mean Ox Delivery Rate 11/22 1548 60 16 152/95 100 Room Air 11/22 1340 97.5 54 18 153/90 98 Room Air 11/22 1145 65 18 147/97 99 Room Air 11/22 1044 98.4 88 18 140/70 97 Room Air 11/22 0904 99 Room Air 11/22 0752 98.5 89 18 143/94 97 Room Air Intake & Output 11/22 1600 11/22 0800 11/22 0000 Intake Total 1000 Output Total Balance 1000 Intake, IV 1000 Patient 190 lb Weight Weight Reported by Patient Measurement Method PE: General: patient under distress with pain and during interview seem to get angry with some questions, alert and oriented HEENT: NC/AT PERRLA, EOMI, No cervical lymphadenopaty Skin: round patchy redness around the neck, 6x6 cm mildly tender crusty whitish with redness around the borders patchy lesion with no pustules or vesicle\ Lungs: symmetrical chest expasion, clear breath sounds without added sound. Back: No skil lesion over that back, severe tender to palpation over the right posterior superior iliac spine. CVS: regular rate and rythm, normal S1 and S2 Abd: presented bowel sounds, soft, nondistended, tenderness over the LLQ and RUQ radiating to suprapubic region, no guarding. No hernias no mass Genitourinary: no visible lesion or discharge, nontender right lymphadenopathy Neuro: intact CN II-XII, right raise leg examination limited due to back pain, intact sensation over x4 extremities, no numbness or pain in the extremities. Internal and external rotation of the right leg produced kaci pain to the right back. Results Results: Laboratory Tests 11/22/17 0922: Anion Gap 9, Estimated GFR > 60, BUN/Creatinine Ratio 17.3, Glucose 91, Lactic Acid 0.9, Calcium 9.4, Total Bilirubin 0.5, AST 14 L, ALT 22, Alkaline Phosphatase 80, Total Protein 7.4, Albumin 4.1, Globulin 3.3, Albumin/Globulin Ratio 1.2, Lipase 620 H, CBC w Diff NO MAN DIFF REQ, RBC 5.34, MCV 89.4, MCH 30.8, MCHC 34.5, RDW 13.9, MPV 8.1, Gran % 74.7, Lymphocytes % 16.6 L, Monocytes % 6.7, Eosinophils % 1.6, Basophils % 0.4, Absolute Granulocytes 7.4 H, Absolute Lymphocytes 1.6, Absolute Monocytes 0.7 H, Absolute Eosinophils 0.2 , Absolute Basophils 0 11/22/17 0801: Urine Color YEL, Urine Clarity CLEAR, Urine pH 6.0, Ur Specific [place] >= 1.030 , Urine Protein NEG, Urine Ketones NEG, Urine Nitrite NEG, Urine Bilirubin NEG, Urine Urobilinogen 0.2, Ur Leukocyte Esterase NEG, Ur Microscopic SEDIMENT EXAMINED, Urine RBC 3-5, Urine WBC 5-10 H, Ur Epithelial Cells FEW, Urine Mucus FEW, Urine Hemoglobin MOD H, Urine Glucose NEG Assessment/Plan Assessment: 52 y/o M with PMHx of diverticulitis, GERD, cholelithiasis, nephrolithiasis s/p lithotripsy, gout, anxiety, reversible ischemia on nuclear stress test status post cardiac cath presented to the ER with a cc of abdominal. Patient admitted to [facility] for further evaluation. During admission: Vitals stable. CBC did not showed any sign of active infection. Chemistry only reported an elevated lipase of 620. UA showed pyuria of 5-10 wbc, +hemoglobin, no bacteria nor le. At this point, back and abdominal pain is of unclear etiology. CT was review with radiologist and agreed with no acute abnormality. DDx:no recent trauma, no fracture, Renal infection or stone (no fever, no leukocytosis), disk disease (no evidence in CT), adhesion (unlikely with a negative CT), inguinal hernia ( unlikely due to negative CT), oval/circular skin rash (looks like yeast infection in the skin fold, lyme, herpes-right inguinal lymphadenopathy but is more maculopapular than vesicular/pustular). Plan: Abdomianl pain (unclear etiology) -Monitor vitals -Measure I&O -Zofran PRN -regular diet for now Back pain (unclear etiology) -Lidocaine patch Skin lesion -Patient started on Doxy and azyclovir
--- NOTE | 2017-11-22 17:14 | Cons- Infect Disease ---
General Information and HPI Consulting Request Date of Consult: 11/22/17 Requested By: Rosalio Bar MD Reason for Consult: Rule out shingles Source of Information: patient, old records History of Present Illness: This is a 52-year-old man with a history of hypertension, GERD, diverticulitis, status post Flower's procedure, with reversal, status post mesh repair of a ventral incisional hernia, nephrolithiasis, status post lithotripsy, cholelithiasis, status post cholecystectomy and gout admitted today after presenting to the emergency room with a two-day history of right upper quadrant pain, radiating to the right lower quadrant and suprapubic area, associated with nausea and body aches without fevers or chills. On admission he was afebrile. Examination revealed a rash in the suprapubic area, of unknown duration. Laboratory data revealed a white blood cell count of 10,000, BUN/creatinine 19 and 1.1, lipase 620, with normal liver enzymes. Urinalysis 3-5 RBC/5-[address] of the abdomen and pelvis with contrast revealed stable mild intrahepatic and extrahepatic biliary ductal dilatation. He was not aware of the rash but does report pruritus in the suprapubic area over the last several months. He denies any recent tick bites but did find a tick on his dog. He denies any recent hiking or camping. 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 Allergies/Medications Allergies: Coded Allergies: meperidine (From DEMEROL) ("I GOT VERY MEAN" 12/08/15) Home Med List: No Known Home Medications Past History Travel History Traveled to [place] past 21 day No Medical History Neurological: NONE EENT: NONE Cardiovascular: hypertension Respiratory: NONE Gastrointestinal: diverticulitis, GERD Hepatic: cholelithiasis Renal: nephrolithiasis (s/p lithotripsy) Musculoskeletal: gout, ULNAR L ELBOW SURGERY R ROTATOR CUFF SURGERY Psychiatric: anxiety Endocrine: NONE Blood Disorders: NONE Cancer(s): NONE MANAGER SUPPLY/Reproductive: NONE History of MRSA: No History of VRE: No History of CDIFF: No Surgical History Surgical History: cholecystectomy, hernia repair-ventral, left cubital tunnel release LEFT COLOSTOMY 09/05/15 S/P HARTMANS PROCEDURE with reversal; R ROTATOR CUFF REPAIR L ELBOW SURGERY Family History Relations & Conditions If Any: MOTHER, , Age 50-60; Cause: Myocardial infarction. FHx: emphysema FATHER, . FH: diabetes mellitus Psychosocial History Where Do You Live? Home Who Do You Live With? self Services at Home: Nursing Primary Language: Turkmen Smoking Status: Current Everyday Smoker ETOH Use: denies use Illicit Drug Use: denies illicit drug use Functional Ability ADLs Independent: dressing, eating, toileting, bathing. Ambulation: independent IADLs Independent: shopping, housework, finances, food prep, telephone, transportation , medication admin. Review of Systems Review of Systems All Other Systems: Reviewed and Negative Exam & Diagnostic Data Last 24 Hrs of Vital Signs/I&O Vital Signs Date Time Temp Pulse Resp B/P B/P Pulse O2 O2 Flow FiO2 Mean Ox Delivery Rate 11/22 1548 60 16 152/95 100 Room Air 11/22 1340 97.5 54 18 153/90 98 Room Air 11/22 1145 65 18 147/97 99 Room Air 11/22 1044 98.4 88 18 140/70 97 Room Air 11/22 0904 99 Room Air 11/22 0752 98.5 89 18 143/94 97 Room Air Intake & Output 11/22 1600 11/22 0800 11/22 0000 Intake Total 1000 Output Total Balance 1000 Intake, IV 1000 Patient 190 lb Weight Weight Reported by Patient Measurement Method Physical Exam Other Physical Findings: He is awake and alert in no acute distress. He is afebrile. Skin reveals a localized maculopapular rash in the suprapubic area, measuring 4 x 6 cm. HEENT exam is negative. Neck is supple with no adenopathy. Lungs are clear. Heart regular rhythm with no murmur. Abdomen is soft, tender on palpation over the right upper quadrant and, to a lesser extent, the right lower quadrant and suprapubic area, with no guarding or rebound, with positive bowel sounds. Back no CVA tenderness. Extremities no cyanosis, clubbing or edema. Neuro is without focality. Last 24 Hours of Lab Results: Laboratory Tests 11/22 11/22 0922 0801 Chemistry Sodium (137 - 145 mmol/L) 143 Potassium (3.5 - 5.1 mmol/L) 4.0 Chloride (98 - 107 mmol/L) 106 Carbon Dioxide (22 - 30 mmol/L) 28 Anion Gap (5 - 16) 9 BUN (9 - 20 mg/dL) 19 Creatinine (0.7 - 1.2 mg/dL) 1.1 Estimated GFR (>60 ml/min) > 60 BUN/Creatinine Ratio (7 - 25 %) 17.3 Glucose (65 - 99 mg/dL) 91 Lactic Acid (0.7 - 2.1 mmol/L) 0.9 Calcium (8.4 - 10.2 mg/dL) 9.4 Total Bilirubin (0.2 - 1.3 mg/dL) 0.5 AST (17 - 59 U/L) 14 L ALT (21 - 72 U/L) 22 Alkaline Phosphatase (< 127 U/L) 80 Total Protein (6.3 - 8.2 g/dL) 7.4 Albumin (3.5 - 5.0 g/dL) 4.1 Globulin (1.9 - 4.2 gm/dL) 3.3 Albumin/Globulin Ratio (1.1 - 2.2 %) 1.2 Lipase (23 - 300 U/L) 620 H Hematology CBC w Diff NO MAN DIFF REQ WBC (4.8 - 10.8 /CUMM) 9.9 RBC (4.70 - 6.10 /CUMM) 5.34 Hgb (14.0 - 18.0 G/DL) 16.5 Hct (42 - 52 %) 47.8 MCV (80.0 - 94.0 FL) 89.4 MCH (27.0 - 31.0 PG) 30.8 MCHC (33.0 - 37.0 G/DL) 34.5 RDW (11.5 - 14.5 %) 13.9 Plt Count (130 - 400 /CUMM) 192 MPV (7.4 - 10.4 FL) 8.1 Gran % (42.2 - 75.2 %) 74.7 Lymphocytes % (20.5 - 51.1 %) 16.6 L Monocytes % (1.7 - 9.3 %) 6.7 Eosinophils % (0 - 5 %) 1.6 Basophils % (0.0 - 2.0 %) 0.4 Absolute Granulocytes (1.4 - 6.5 /CUMM) 7.4 H Absolute Lymphocytes (1.2 - 3.4 /CUMM) 1.6 Absolute Monocytes (0.10 - 0.60 /CUMM) 0.7 H Absolute Eosinophils (0.0 - 0.7 /CUMM) 0.2 Absolute Basophils (0.0 - 0.2 /CUMM) 0 Urines Urine Color (YEL,AMB,STR) YEL Urine Clarity (CLEAR) CLEAR Urine pH (5.0 - 8.0) 6.0 Ur Specific [place] (1.001 - 1.035) >= 1.030 Urine Protein (NEG,<30 MG/DL) NEG Urine Ketones (NEG) NEG Urine Nitrite (NEG) NEG Urine Bilirubin (NEG) NEG Urine Urobilinogen (0.1 - 1.0 EU/dl) 0.2 Ur Leukocyte Esterase (NEG) NEG Ur Microscopic SEDIMENT EXAMINED Urine RBC (0 - 5 /HPF) 3-5 Urine WBC (0 - 2 /HPF) 5-10 H Ur Epithelial Cells (NONE,FEW) FEW Urine Mucus (FEW,NONE) FEW Urine Hemoglobin (NEG) MOD H Urine Glucose (N MG/DL) NEG Last 24 Hours of Steven Results: CT of the abdomen and pelvis with IV contrast reveals stable mild intrahepatic and extrahepatic biliary ductal dilatation Assessment/Plan Assessment/Plan Impression: This is a 52-year-old male status post Flower's procedure for diverticulitis, with reversal, status post mesh repair of a ventral incisional hernia, nephrolithiasis, status post lithotripsy, and cholelithiasis, status post cholecystectomy, admitted today with a two-day history of right upper quadrant pain, radiating to the right lower quadrant and suprapubic area, associated with nausea and body aches, found to be afebrile with a normal white blood cell count and an elevated lipase, with his exam notable for a localized suprapubic, nonpruritic rash and with a CT of the abdomen and pelvis negative for any acute process. The etiology of his right sided abdominal pain is unclear. He does have an elevated lipase, raising concern for pancreatitis, though the pancreas appears normal on the CT scan. The etiology of his rash is unclear. He reports pruritus for several months but he has not noticed the rash, raising concern for a more acute process. It does appear to be maculopapular and, with the report of pruritus, a folliculitis could be considered. Less likely, but possible, would be Lyme disease, given the circular appearance and suggestion of central clearing. Suggestion: 1. Dermatology input 2. Lyme titer 3. Further evaluation of his right upper quadrant pain and elevated lipase per Medicine 4. Begin Doxycycline 100 mg p.o. every 12 hours Consult Acknowledgment - Thank you for your consult request.
[2017-11-22 17:53] VITALS: BP 129/88
--- NOTE | 2017-11-22 19:11 | PN- Att Addend ---
Attending Addendum Attending Brief Note 52-year-old white male history of hypertension GERD diverticulitis kidney stones status post cholecystectomy and the gout has had several abdominal surgeries comes in with a two-day history of abdominal pain started up in the right upper quadrant then radiated to the right side of the suprapubic area in the emergency room on the physical was noted to have a papular rash has been itchy for several days. In the emergency room showed a CAT scan of the abdomen not showing any acute abnormalities. He had a slight elevation of the lipase will know what the significance of this is related he had ID and surgical consultations, recommendations were given regarding antibiotic therapy. His white count was 9900 Current Medications Sig/Oz Start time Last Medication Dose Route Stop Time Status Admin Doxycycline Hyclate 100 MG BID 11/22 2100 AC PO Lidocaine 1 PAT DAILY 11/22 1515 AC 11/22 EXT 1826 Morphine Sulfate 0 .STK-MED ONE 11/22 1358 DC .ROUTE Morphine Sulfate 4 MG ONCE ONE 11/22 1345 DC 11/22 IV 11/22 1346 1403 Morphine Sulfate 0 .STK-MED ONE 11/22 1048 DC .ROUTE Morphine Sulfate 4 MG ONCE ONE 11/22 1015 DC / IV 11/22 1016 1043 Morphine Sulfate 0 .STK-MED ONE 11/22 0903 DC .ROUTE Morphine Sulfate 4 MG ONCE ONE 11/22 0845 DC / IV 11/22 0846 0855 Ondansetron HCl 0 .STK-MED ONE 11/22 0903 DC .ROUTE Ondansetron HCl 4 MG ONCE ONE 11/22 0845 DC 11/22 IV 11/22 0846 0855 Oxycodone/ 1 TAB Q6P PRN 11/22 1815 AC 11/22 Acetaminophen PO 1828 Sodium Chloride 1,000 ML BOLUS ONE 11/22 1145 DC / IV 11/22 1244 1145 Sodium Chloride 1,000 ML BOLUS ONE 11/22 0845 DC 11/22 IV 11/22 0944 0855 Valacyclovir HCl 1,000 MG TID 11/22 2100 AC PO Laboratory Tests 11/22/17 1736: Lyme Disease Antibody Cancelled 11/22/17 1136: Lactic Acid Cancelled 11/22/17 0922: Anion Gap 9, Estimated GFR > 60, BUN/Creatinine Ratio 17.3, Glucose 91, Lactic Acid 0.9, Calcium 9.4, Total Bilirubin 0.5, AST 14 L, ALT 22, Alkaline Phosphatase 80, Total Protein 7.4, Albumin 4.1, Globulin 3.3, Albumin/Globulin Ratio 1.2, Amylase 88, Lipase 620 H, CBC w Diff NO MAN DIFF REQ, RBC 5.34, MCV 89.4, MCH 30.8, MCHC 34.5, RDW 13.9, MPV 8.1, Gran % 74.7, Lymphocytes % 16.6 L , Monocytes % 6.7, Eosinophils % 1.6, Basophils % 0.4, Absolute Granulocytes 7.4 H, Absolute Lymphocytes 1.6, Absolute Monocytes 0.7 H, Absolute Eosinophils 0.2, Absolute Basophils 0, Lyme Disease Antibody Pending 11/22/17 0801: Urine Color YEL, Urine Clarity CLEAR, Urine pH 6.0, Ur Specific [place] >= 1.030 , Urine Protein NEG, Urine Ketones NEG, Urine Nitrite NEG, Urine Bilirubin NEG, Urine Urobilinogen 0.2, Ur Leukocyte Esterase NEG, Ur Microscopic SEDIMENT EXAMINED, Urine RBC 3-5, Urine WBC 5-10 H, Ur Epithelial Cells FEW, Urine Mucus FEW, Urine Hemoglobin MOD H, Urine Glucose NEG Vital Signs Date Time Temp Pulse Resp B/P B/P Pulse O2 O2 Flow FiO2 Mean Ox Delivery Rate 11/22 1753 98.7 60 20 129/88 99 Room Air 11/22 1722 97.7 78 18 120/80 97 Room Air Room Air 11/22 1548 60 16 152/95 100 Room Air 11/22 1340 97.5 54 18 153/90 98 Room Air 11/22 1145 65 18 147/97 99 Room Air 11/22 1044 98.4 88 18 140/70 97 Room Air 11/22 0904 99 Room Air 11/22 0752 98.5 89 18 143/94 97 Room Air Intake & Output 11/22 1600 11/22 0800 11/22 0000 Intake Total 1000 Output Total Balance 1000 Intake, IV 1000 Patient 190 lb Weight Weight Reported by Patient Measurement Method
[2017-11-22 23:14] VITALS: BP 102/70
[2017-11-23 06:52] VITALS: BP 118/70
--- NOTE | 2017-11-23 12:02 | PN- Pulmonary ---
Subjective HPI/Critical Care Issues: Still Has sig abd pain GI eval ongoing Surg did see him Objective Current Medications: Current Medications Sig/Oz Start time Last Medication Dose Route Stop Time Status Admin Calcium Carbonate 500 MG DAILY 11/23 1147 AC 11/23 PO 1156 Doxycycline Hyclate 100 MG BID 11/22 2100 AC 11/23 PO 1000 Lidocaine 1 PAT DAILY 11/22 1515 AC 11/23 EXT 0806 Morphine Sulfate 0 .STK-MED ONE 11/22 1358 DC .ROUTE Morphine Sulfate 4 MG ONCE ONE 11/22 1345 DC 11/22 IV 11/22 1346 1403 Nicotine 7 MG DAILY 11/22 2300 AC 11/23 TOP 1001 Oxycodone/ 1 TAB Q6P PRN 11/22 1815 AC 11/23 Acetaminophen PO 1157 Valacyclovir HCl 1,000 MG TID 11/22 2100 AC 11/23 PO 1000 Vital Signs & I&O Last 24 Hrs of Vitals and I&O: Laboratory Tests 11/22 11/22 11/22 1736 1136 0922 Chemistry Sodium (137 - 145 mmol/L) 143 Potassium (3.5 - 5.1 mmol/L) 4.0 Chloride (98 - 107 mmol/L) 106 Carbon Dioxide (22 - 30 mmol/L) 28 Anion Gap (5 - 16) 9 BUN (9 - 20 mg/dL) 19 Creatinine (0.7 - 1.2 mg/dL) 1.1 Estimated GFR (>60 ml/min) > 60 BUN/Creatinine Ratio (7 - 25 %) 17.3 Glucose (65 - 99 mg/dL) 91 Lactic Acid (0.7 - 2.1 mmol/L) Cancelled 0.9 Calcium (8.4 - 10.2 mg/dL) 9.4 Total Bilirubin (0.2 - 1.3 mg/dL) 0.5 AST (17 - 59 U/L) 14 L ALT (21 - 72 U/L) 22 Alkaline Phosphatase (< 127 U/L) 80 Total Protein (6.3 - 8.2 g/dL) 7.4 Albumin (3.5 - 5.0 g/dL) 4.1 Globulin (1.9 - 4.2 gm/dL) 3.3 Albumin/Globulin Ratio (1.1 - 2.2 %) 1.2 Amylase (30 - 110 U/L) 88 Lipase (23 - 300 U/L) 620 H Hematology CBC w Diff NO MAN DIFF REQ WBC (4.8 - 10.8 /CUMM) 9.9 RBC (4.70 - 6.10 /CUMM) 5.34 Hgb (14.0 - 18.0 G/DL) 16.5 Hct (42 - 52 %) 47.8 MCV (80.0 - 94.0 FL) 89.4 MCH (27.0 - 31.0 PG) 30.8 MCHC (33.0 - 37.0 G/DL) 34.5 RDW (11.5 - 14.5 %) 13.9 Plt Count (130 - 400 /CUMM) 192 MPV (7.4 - 10.4 FL) 8.1 Gran % (42.2 - 75.2 %) 74.7 Lymphocytes % (20.5 - 51.1 %) 16.6 L Monocytes % (1.7 - 9.3 %) 6.7 Eosinophils % (0 - 5 %) 1.6 Basophils % (0.0 - 2.0 %) 0.4 Absolute Granulocytes (1.4 - 6.5 /CUMM) 7.4 H Absolute Lymphocytes (1.2 - 3.4 /CUMM) 1.6 Absolute Monocytes (0.10 - 0.60 /CUMM) 0.7 H Absolute Eosinophils (0.0 - 0.7 /CUMM) 0.2 Absolute Basophils (0.0 - 0.2 /CUMM) 0 Serology Lyme Disease Antibody Cancelled Pending 11/22 0801 Urines Urine Color (YEL,AMB,STR) YEL Urine Clarity (CLEAR) CLEAR Urine pH (5.0 - 8.0) 6.0 Ur Specific [place] (1.001 - 1.035) >= 1.030 Urine Protein (NEG,<30 MG/DL) NEG Urine Ketones (NEG) NEG Urine Nitrite (NEG) NEG Urine Bilirubin (NEG) NEG Urine Urobilinogen (0.1 - 1.0 EU/dl) 0.2 Ur Leukocyte Esterase (NEG) NEG Ur Microscopic SEDIMENT EXAMINED Urine RBC (0 - 5 /HPF) 3-5 Urine WBC (0 - 2 /HPF) 5-10 H Ur Epithelial Cells (NONE,FEW) FEW Urine Mucus (FEW,NONE) FEW Urine Hemoglobin (NEG) MOD H Urine Glucose (N MG/DL) NEG Vital Signs Date Time Temp Pulse Resp B/P B/P Pulse O2 O2 Flow FiO2 Mean Ox Delivery Rate 11/23 0652 97.9 60 16 118/70 97 Room Air 11/22 2314 98.3 60 19 102/70 94 Room Air 11/22 1753 98.7 60 20 129/88 99 Room Air 11/22 1722 97.7 78 18 120/80 97 Room Air Room Air 11/22 1548 60 16 152/95 100 Room Air 11/22 1340 97.5 54 18 153/90 98 Room Air Intake & Output 11/23 1600 11/23 0800 06 0000 Intake Total 300 300 Output Total Balance 300 300 Intake, Oral 300 300 Patient 202 lb 190 lb Weight Weight Bed scale Reported by Patient Measurement Method Impression/Plan Impression/Plan Impression/Plan: This is a 52-year-old male status post Flower's procedure for diverticulitis, with reversal, status post mesh repair of a ventral incisional hernia, nephrolithiasis, status post lithotripsy, and cholelithiasis, status post cholecystectomy, admitted today with a two-day history of right upper quadrant pain, radiating to the right lower quadrant and suprapubic area, associated with nausea and body aches, found to be afebrile with a normal white blood cell count and an elevated lipase, with his exam notable for a localized suprapubic, nonpruritic rash and with a CT of the abdomen and pelvis negative for any acute process. Now has rt upper qdt pain cause unclear so far Rash has improved Plan Cont current meds Await all other bus info consultant input today Cont doxy and po valcyclovir Will follow
[2017-11-23 14:59] VITALS: BP 118/77
--- NOTE | 2017-11-23 15:32 | Cons- Gastroenterology ---
General Information and HPI Consulting Request Date of Consult: 11/23/17 Requested By: Rosalio Bar MD Reason for Consult: Abdominal pain Source of Information: patient Allergies/Medications Allergies: Coded Allergies: meperidine (From DEMEROL) ("I GOT VERY MEAN" 12/08/15) Home Med List: No Known Home Medications Current Medications: Current Medications Sig/Oz Start time Last Medication Dose Route Stop Time Status Admin Calcium Carbonate 500 MG DAILY 11/23 1147 AC 11/23 PO 1156 Doxycycline Hyclate 100 MG BID 11/22 2100 AC 11/23 PO 1000 Lidocaine 1 PAT DAILY 11/22 1515 AC 11/23 EXT 0806 Nicotine 7 MG DAILY 11/22 2300 AC 11/23 TOP 1001 Oxycodone/ 1 TAB Q6P PRN 11/22 1815 AC 11/23 Acetaminophen PO 1157 Valacyclovir HCl 1,000 MG TID 11/22 2100 AC 11/23 PO 1514 Past History Travel History Traveled to [place] past 21 day No Medical History Blood Transfusion Hx: No Neurological: NONE EENT: NONE Cardiovascular: hypertension Respiratory: NONE Gastrointestinal: diverticulitis, GERD Hepatic: cholelithiasis Renal: nephrolithiasis (s/p lithotripsy) Musculoskeletal: gout, ULNAR L ELBOW SURGERY R ROTATOR CUFF SURGERY Psychiatric: anxiety Endocrine: NONE Blood Disorders: NONE Cancer(s): NONE 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 FHx: emphysema FATHER, . FH: diabetes mellitus Psychosocial History Where Do You Live? Home Who Do You Live With? self Services at Home: Nursing Primary Language: Panamanian Smoking Status: Current Everyday Smoker ETOH Use: denies use Illicit Drug Use: denies illicit drug use Functional Ability ADLs Independent: dressing, eating, toileting, bathing. Ambulation: independent IADLs Independent: shopping, housework, finances, food prep, telephone, transportation , medication admin. Exam & Diagnostic Data Vital Signs and I&O Vital Signs Date Time Temp Pulse Resp B/P B/P Pulse O2 O2 Flow FiO2 Mean Ox Delivery Rate 11/23 1459 98.1 60 20 118/77 98 06/02 0652 97.9 60 16 118/70 97 Room Air 11/22 2314 98.3 60 19 102/70 94 Room Air 11/22 1753 98.7 60 20 129/88 99 Room Air 11/22 1722 97.7 78 18 120/80 97 Room Air Room Air 11/22 1548 60 16 152/95 100 Room Air Intake & Output 11/23 0400 11/22 0400 Intake Total 8578 428 2929 Output Total Balance 1101 989 7056 Intake, IV 1000 Intake, Oral 1100 300 Patient 202 lb 190 lb 190 lb Weight Weight Bed scale Reported by Patient Reported by Patient Measurement Method Results Pertinent Lab Results: Laboratory Tests 11/22 11/22 11/22 1736 1136 0922 Chemistry Sodium (137 - 145 mmol/L) 143 Potassium (3.5 - 5.1 mmol/L) 4.0 Chloride (98 - 107 mmol/L) 106 Carbon Dioxide (22 - 30 mmol/L) 28 Anion Gap (5 - 16) 9 BUN (9 - 20 mg/dL) 19 Creatinine (0.7 - 1.2 mg/dL) 1.1 Estimated GFR (>60 ml/min) > 60 BUN/Creatinine Ratio (7 - 25 %) 17.3 Glucose (65 - 99 mg/dL) 91 Lactic Acid (0.7 - 2.1 mmol/L) Cancelled 0.9 Calcium (8.4 - 10.2 mg/dL) 9.4 Total Bilirubin (0.2 - 1.3 mg/dL) 0.5 AST (17 - 59 U/L) 14 L ALT (21 - 72 U/L) 22 Alkaline Phosphatase (< 127 U/L) 80 Total Protein (6.3 - 8.2 g/dL) 7.4 Albumin (3.5 - 5.0 g/dL) 4.1 Globulin (1.9 - 4.2 gm/dL) 3.3 Albumin/Globulin Ratio (1.1 - 2.2 %) 1.2 Amylase (30 - 110 U/L) 88 Lipase (23 - 300 U/L) 620 H Hematology CBC w Diff NO MAN DIFF REQ WBC (4.8 - 10.8 /CUMM) 9.9 RBC (4.70 - 6.10 /CUMM) 5.34 Hgb (14.0 - 18.0 G/DL) 16.5 Hct (42 - 52 %) 47.8 MCV (80.0 - 94.0 FL) 89.4 MCH (27.0 - 31.0 PG) 30.8 MCHC (33.0 - 37.0 G/DL) 34.5 RDW (11.5 - 14.5 %) 13.9 Plt Count (130 - 400 /CUMM) 192 MPV (7.4 - 10.4 FL) 8.1 Gran % (42.2 - 75.2 %) 74.7 Lymphocytes % (20.5 - 51.1 %) 16.6 L Monocytes % (1.7 - 9.3 %) 6.7 Eosinophils % (0 - 5 %) 1.6 Basophils % (0.0 - 2.0 %) 0.4 Absolute Granulocytes (1.4 - 6.5 /CUMM) 7.4 H Absolute Lymphocytes (1.2 - 3.4 /CUMM) 1.6 Absolute Monocytes (0.10 - 0.60 /CUMM) 0.7 H Absolute Eosinophils (0.0 - 0.7 /CUMM) 0.2 Absolute Basophils (0.0 - 0.2 /CUMM) 0 Serology Lyme Disease Antibody Cancelled Pending 11/22 0801 Urines Urine Color (YEL,AMB,STR) YEL Urine Clarity (CLEAR) CLEAR Urine pH (5.0 - 8.0) 6.0 Ur Specific [place] (1.001 - 1.035) >= 1.030 Urine Protein (NEG,<30 MG/DL) NEG Urine Ketones (NEG) NEG Urine Nitrite (NEG) NEG Urine Bilirubin (NEG) NEG Urine Urobilinogen (0.1 - 1.0 EU/dl) 0.2 Ur Leukocyte Esterase (NEG) NEG Ur Microscopic SEDIMENT EXAMINED Urine RBC (0 - 5 /HPF) 3-5 Urine WBC (0 - 2 /HPF) 5-10 H Ur Epithelial Cells (NONE,FEW) FEW Urine Mucus (FEW,NONE) FEW Urine Hemoglobin (NEG) MOD H Urine Glucose (N MG/DL) NEG Imaging/Other Studies: CT scan of abdomen and pelvis: No acute abnormality. No change from the prior exam. Status post cholecystectomy. Stable mild intrahepatic and extrahepatic biliary ductal dilatation. Assessment/Plan Assessment/Recommendations: Abdominal wall/flank pain with neuropathic quality. No evidence of intra- abdominal or retroperitoneal process, by history/examination/imaging. The mildly elevated lipase is nonspecific, and there is no clinical evidence of pancreatitis. Agree with differential diagnosis to include zoster, Lyme disease , radicular process, etc. Recommendations * Regular diet * Neuromodulator such as gabapentin * Await Lyme titer * Continue valacyclovir * Dermatology evaluation of rash Consult Acknowledgment - Thank you for your consult request.
[2017-11-23 20:39] LABS: ABSOLUTE BASOPHIL COUNT 0 /CUMM (0.0-0.2); ABSOLUTE EOSINOPHIL COUNT 0.1 /CUMM (0.0-0.7); ABSOLUTE GRANULOCYTE CT 4.5 /CUMM (1.4-6.5); ABSOLUTE LYMPH COUNT 1.9 /CUMM (1.2-3.4); ABSOLUTE MONOCYTE COUNT 0.5 /CUMM (0.10-0.60); BASOPHIL % 0.5 % (0.0-2.0); EOSINOPHIL % 2.1 % (0-5); GRANULOCYTE % 64.4 % (42.2-75.2); HEMATOCRIT 46.1 % (42-52); MEAN CORPUSCULAR HGB 30.8 PG (27.0-31.0); MEAN CORPUSCULAR HGB CONC 34.2 G/DL (33.0-37.0); MEAN CORPUSCULAR VOLUME 90.1 FL (80.0-94.0); MEAN PLATELET VOLUME 8.5 FL (7.4-10.4); PLATELET COUNT 193 /CUMM (130-400); RBC DISTRIBUTION WIDTH 13.9 % (11.5-14.5); RED BLOOD CELL CT 5.12 /CUMM (4.70-6.10); WHITE BLOOD CELL COUNT 7.1 /CUMM (4.8-10.8)
[2017-11-23 22:25] VITALS: BP 126/80
[2017-11-24 06:42] VITALS: BP 118/80
--- NOTE | 2017-11-24 08:07 | PN- Infect Dx ---
Subjective Subjective: Afebrile. He continues to complain of diffuse abdominal pain and nausea. He has not had any bowel movements. He also complains of bilateral knee pain. Objective Last 24 Hrs of Vital Signs/I&O Vital Signs Date Time Temp Pulse Resp B/P B/P Pulse O2 O2 Flow FiO2 Mean Ox Delivery Rate 11/24 0642 98.1 68 18 118/80 98 Room Air 11/23 2225 98.0 63 18 126/80 94 Room Air 11/23 1459 98.1 60 20 118/77 98 Intake & Output 11/24 1600 11/24 0800 11/24 0000 Intake Total 200 300 Output Total Balance 200 300 Intake, Oral 200 300 Physical Exam Other Physical Findings: He appears mildly uncomfortable but in no acute distress Skin suprapubic rash decreased Lungs are clear Heart regular rhythm with no murmur Abdomen is soft, tender on palpation diffusely, with no guarding or rebound, positive bowel sounds Back no CVA tenderness Extremities no cyanosis, clubbing or edema; no joint inflammation Results Last 24 Hours of Lab Results: Laboratory Tests 11/23 1929 Hematology CBC w Diff NO MAN DIFF REQ WBC (4.8 - 10.8 /CUMM) 7.1 RBC (4.70 - 6.10 /CUMM) 5.12 Hgb (14.0 - 18.0 G/DL) 15.8 Hct (42 - 52 %) 46.1 MCV (80.0 - 94.0 FL) 90.1 MCH (27.0 - 31.0 PG) 30.8 MCHC (33.0 - 37.0 G/DL) 34.2 RDW (11.5 - 14.5 %) 13.9 Plt Count (130 - 400 /CUMM) 193 MPV (7.4 - 10.4 FL) 8.5 Gran % (42.2 - 75.2 %) 64.4 Lymphocytes % (20.5 - 51.1 %) 26.3 Monocytes % (1.7 - 9.3 %) 6.7 Eosinophils % (0 - 5 %) 2.1 Basophils % (0.0 - 2.0 %) 0.5 Absolute Granulocytes (1.4 - 6.5 /CUMM) 4.5 Absolute Lymphocytes (1.2 - 3.4 /CUMM) 1.9 Absolute Monocytes (0.10 - 0.60 /CUMM) 0.5 Absolute Eosinophils (0.0 - 0.7 /CUMM) 0.1 Absolute Basophils (0.0 - 0.2 /CUMM) 0 Last 24 Hours of Steven Results: No cultures Assessment/Plan ID Impression: Persistent abdominal pain with nausea, of unclear etiology, with the CT of the abdomen and pelvis negative. His lipase was elevated but is of unclear significance, and he has been evaluated by GI. His rash is not clearly related to his current illness but does appear to be improved. He remains afebrile with a normal white blood cell count on Doxycycline for possible Lyme disease. He was also apparently begun on Valacyclovir, though do not suspect shingles. Suggestion: 1. Repeat lipase 2. Further evaluation/management of his abdominal pain per GI 3. Follow-up Lyme titer 4. Discontinue Valacyclovir 5. Continue Doxycycline
--- NOTE | 2017-11-24 08:43 | PN- Housestaff ---
Subjective Follow-up For: Abdominal pain Subjective: Patient reports RLQ abdominal pain and no bowel movement since admission. He reports he was never told his plan and has not been updated daily. After speaking with him I clarified what he is currently being treated for and what was suspected upon admission. He reports he does not have any further questions at this time Review of Systems Constitutional: Reports: see HPI. Objective Last 24 Hrs of Vital Signs/I&O Vital Signs Date Time Temp Pulse Resp B/P B/P Pulse O2 O2 Flow FiO2 Mean Ox Delivery Rate 11/24 0542 98.1 68 18 118/80 98 Room Air / 2225 98.0 63 18 126/80 94 Room Air 11/23 1459 98.1 60 20 118/77 98 Intake & Output 11/24 1600 11/24 0800 11/24 0000 Intake Total 600 200 300 Output Total Balance 600 200 300 Intake, Oral 600 200 300 Physical Exam General Appearance: Alert, Oriented X3, Cooperative, No Acute Distress Cardiovascular: Regular Rate, Normal S1, Normal S2 Lungs: Clear to Auscultation, Normal Air Movement Abdomen: RLQ tenderness on palpation Extremities: No Edema Current Medications: Current Medications Sig/Oz Start time Last Medication Dose Route Stop Time Status Admin Calcium Carbonate 500 MG DAILY 11/23 1147 AC 11/24 PO 1014 Docusate Sodium 100 MG DAILY 11/24 0913 11/24 PO 1319 Doxycycline Hyclate 100 MG BID 11/22 2100 11/24 PO 1014 Gabapentin 100 MG Q8 11/23 2200 11/24 PO 1318 Lidocaine 1 PAT DAILY 11/22 1515 11/24 EXT 1016 Nicotine 7 MG DAILY 11/22 2300 11/24 TOP 1015 Ondansetron HCl 4 MG ONCE ONE 11/24 0630 GA 11/24 IV 11/24 0631 0640 Ondansetron HCl 4 MG ONCE ONE 11/23 1815 DC / IV 11/23 1816 1827 Oxycodone HCl 5 MG ONCE ONE 11/24 0845 DC 11/24 PO 11/24 0846 1015 Oxycodone HCl 5 MG ONCE ONE 11/23 1745 DC 11/23 PO 11/23 1746 2003 Oxycodone/ 1 TAB Q6P PRN 11/22 1815 11/24 Acetaminophen PO 0804 Polyethylene Glycol 17 GM DAILY 11/24 0913 AC 11/24 PO 1319 Valacyclovir HCl 1,000 MG TID 11/22 2100 DC 11/23 PO 2002 Last 24 Hrs of Lab/Steven Results Last 24 Hrs of Labs/Mics: Laboratory Tests 11/24/17 1201: Anion Gap 12, Estimated GFR > 60, BUN/Creatinine Ratio 13.3, Glucose 90, Calcium 9.8, Total Bilirubin 0.8, AST 18, ALT 34, Alkaline Phosphatase 90, Total Protein 8.0, Albumin 4.3, Globulin 3.7, Albumin/Globulin Ratio 1.2, Lipase 401 H, CBC w Diff NO MAN DIFF REQ, RBC 5.54, MCV 89.7, MCH 30.6, MCHC 34.1, RDW 14.2, MPV 8.5 , Gran % 66.6, Lymphocytes % 24.3, Monocytes % 6.4, Eosinophils % 2.3, Basophils % 0.4, Absolute Granulocytes 5.0, Absolute Lymphocytes 1.8, Absolute Monocytes 0.5, Absolute Eosinophils 0.2, Absolute Basophils 0 11/23/17 1930: CBC w Diff NO MAN DIFF REQ, RBC 5.12, MCV 90.1, MCH 30.8, MCHC 34.2, RDW 13.9, MPV 8.5, Gran % 64.4, Lymphocytes % 26.3, Monocytes % 6.7, Eosinophils % 2.1, Basophils % 0.5, Absolute Granulocytes 4.5, Absolute Lymphocytes 1.9, Absolute Monocytes 0.5, Absolute Eosinophils 0.1, Absolute Basophils 0 Assessment/Plan Assessment: 52-year-old man with past medical history of diverticulitis, kidney stones, gallstones, reversible ischemia on nuclear stress test status post cardiac cath recently in 2014 presented to the ED with a chief complaint of abdominal pain #Abdominal pain - does not seem related to pancreatitis though Lipase was elevated Plan: We will discontinue Valcyclovir for suspected HSV as per ID Continue Doxycycline for ?Lyme, titers pending Lipase trending down today We will continue Gabapentin for a 2 week course PPI BID as per GI DVT prophylaxis -ALPs/heparin CODE STATUS -full code Problem List: 1. Abdominal pain Pain Ratin Pain Location: abdomen Pain Goal: Pain 4 or less Pain Plan: Percocet Tomorrow's Labs & Rationales: none
--- NOTE | 2017-11-24 09:58 | PN- Pulmonary ---
Subjective HPI/Critical Care Issues: Afebrile. He continues to complain of diffuse abdominal pain and nausea. He has not had any bowel movements. He also complains of bilateral knee pain. Objective Current Medications: Current Medications Sig/Oz Start time Last Medication Dose Route Stop Time Status Admin Calcium Carbonate 500 MG DAILY 11/23 1147 AC 11/23 PO 1156 Docusate Sodium 100 MG DAILY 11/24 0913 AC PO Doxycycline Hyclate 100 MG BID 11/22 2100 AC 11/23 PO 2002 Gabapentin 100 MG Q8 11/23 2200 AC 11/24 PO 0508 Lidocaine 1 PAT DAILY 11/22 1515 AC 11/23 EXT 0806 Nicotine 7 MG DAILY 11/22 2300 AC 11/23 TOP 1001 Ondansetron HCl 4 MG ONCE ONE 11/24 0630 DC 11/24 IV 11/24 0631 0640 Ondansetron HCl 4 MG ONCE ONE 11/23 1815 DC 11/23 IV 11/23 1816 1827 Oxycodone HCl 5 MG ONCE ONE 11/24 0845 DC PO 11/24 0846 Oxycodone HCl 5 MG ONCE ONE 11/23 1745 DC 11/23 PO 11/23 1746 2002 Oxycodone/ 1 TAB Q6P PRN 11/22 1815 AC 11/24 Acetaminophen PO 0804 Polyethylene Glycol 17 GM DAILY 11/24 0913 AC PO Valacyclovir HCl 1,000 MG TID 11/22 2100 DC 11/23 PO 2002 Vital Signs & I&O Last 24 Hrs of Vitals and I&O: Vital Signs Date Time Temp Pulse Resp B/P B/P Pulse O2 O2 Flow FiO2 Mean Ox Delivery Rate 11/24 0542 98.1 68 18 118/80 98 Room Air 11/23 2225 98.0 63 18 126/80 94 Room Air 11/23 1459 98.1 60 20 118/77 98 Intake & Output 11/24 1600 11/24 0800 11/24 0000 Intake Total 200 300 Output Total Balance 200 300 Intake, Oral 200 300 Laboratory Tests 11/23 11/22 11/22 1930 1736 1136 Chemistry Lactic Acid Cancelled Hematology CBC w Diff NO MAN DIFF REQ WBC (4.8 - 10.8 /CUMM) 7.1 RBC (4.70 - 6.10 /CUMM) 5.12 Hgb (14.0 - 18.0 G/DL) 15.8 Hct (42 - 52 %) 46.1 MCV (80.0 - 94.0 FL) 90.1 MCH (27.0 - 31.0 PG) 30.8 MCHC (33.0 - 37.0 G/DL) 34.2 RDW (11.5 - 14.5 %) 13.9 Plt Count (130 - 400 /CUMM) 193 MPV (7.4 - 10.4 FL) 8.5 Gran % (42.2 - 75.2 %) 64.4 Lymphocytes % (20.5 - 51.1 %) 26.3 Monocytes % (1.7 - 9.3 %) 6.7 Eosinophils % (0 - 5 %) 2.1 Basophils % (0.0 - 2.0 %) 0.5 Absolute Granulocytes (1.4 - 6.5 /CUMM) 4.5 Absolute Lymphocytes (1.2 - 3.4 /CUMM) 1.9 Absolute Monocytes (0.10 - 0.60 /CUMM) 0.5 Absolute Eosinophils (0.0 - 0.7 /CUMM) 0.1 Absolute Basophils (0.0 - 0.2 /CUMM) 0 Serology Lyme Disease Antibody Cancelled Impression/Plan Impression/Plan Impression/Plan: This is a 52-year-old male status post Flower's procedure for diverticulitis, with reversal, status post mesh repair of a ventral incisional hernia, nephrolithiasis, status post lithotripsy, and cholelithiasis, status post cholecystectomy, admitted today with a two-day history of right upper quadrant pain, radiating to the right lower quadrant and suprapubic area, associated with nausea and body aches, found to be afebrile with a normal white blood cell count and an elevated lipase, with his exam notable for a localized suprapubic, nonpruritic rash and with a CT of the abdomen and pelvis negative for any acute process. Now has rt upper qdt pain cause unclear so far Rash has improved Plan Cont current meds Follow ID and GI rec Agg bowel regimen Check lipase, cmp and cbc today Cont doxy and can dc valtrex Will follow
--- NOTE | 2017-11-24 12:27 | PN- Gastroenterology ---
Assessment/Plan GI Assessment/Recommendations: Abdominal wall/flank pain with neuropathic quality. No evidence of intra- abdominal or retroperitoneal process, by history/examination/imaging. The mildly elevated lipase is nonspecific, and there is no clinical evidence of pancreatitis. Improvement in pain, temporally concurrent with initiation of gabapentin. Recommendations * Regular diet * Antiemetics * Continue gabapentin for 2 week course * Await Lyme titer * Discontinue valacyclovir per ID * Begin PPI twice a day * Outpatient evaluation/management of GERD Subjective Subjective: The pain has improved, especially the back/flank component. Abdominal component improved as well. Persistent nausea. No bowel movements. Rash improved. Objective Vital Signs and I&Os Vital Signs Date Time Temp Pulse Resp B/P B/P Pulse O2 O2 Flow FiO2 Mean Ox Delivery Rate 11/24 0642 98.1 68 18 118/80 98 Room Air 11/23 2225 98.0 63 18 126/80 94 Room Air 11/23 1459 98.1 60 20 118/77 98 Intake & Output 11/24 1600 11/24 0400 11/23 1600 11/23 0400 11/22 1600 11/22 0400 Intake Total 034 920 1780 300 1000 Output Total Balance 357 536 3521 300 1000 Intake, IV 1000 Intake, Oral 546 135 0023 300 Patient 202 lb 190 lb 190 lb Weight Weight Bed scale Reported by Patient Reported by Patient Measurement Method Physical Exam: Rash improved. Abdomen with mild tenderness, positive Carnett sign. No flank tenderness. Current Medications: Current Medications Sig/Oz Start time Last Medication Dose Route Stop Time Status Admin Calcium Carbonate 500 MG DAILY 11/23 1147 AC 11/24 PO 1014 Docusate Sodium 100 MG DAILY 11/24 0913 AC PO Doxycycline Hyclate 100 MG BID 11/22 2100 AC 11/24 PO 1014 Gabapentin 100 MG Q8 11/23 2200 AC 11/24 PO 0508 Lidocaine 1 PAT DAILY 11/22 1515 AC 11/24 EXT 1016 Nicotine 7 MG DAILY 11/22 2300 AC 11/24 TOP 1015 Ondansetron HCl 4 MG ONCE ONE 11/24 0630 DC 11/24 IV 11/24 0631 0640 Ondansetron HCl 4 MG ONCE ONE 11/23 1815 DC 11/23 IV 11/23 1816 1827 Oxycodone HCl 5 MG ONCE ONE 11/24 0845 DC 11/24 PO 11/24 0846 1015 Oxycodone HCl 5 MG ONCE ONE 11/23 1744 DC 11/23 PO 11/23 Oxycodone/ 1 TAB Q6P PRN 11/22 1815 AC 11/24 Acetaminophen PO 08 Polyethylene Glycol 17 GM DAILY 11/24 912 AC PO Valacyclovir HCl 1,000 MG TID 11/22 2099 DC 11/23 PO 2002 Results Pertinent Lab Results: Laboratory Tests 11/23 11/22 11/22 1930 1736 1136 Chemistry Lactic Acid Cancelled Hematology CBC w Diff NO MAN DIFF REQ WBC (4.8 - 10.8 /CUMM) 7.1 RBC (4.70 - 6.10 /CUMM) 5.12 Hgb (14.0 - 18.0 G/DL) 15.8 Hct (42 - 52 %) 46.1 MCV (80.0 - 94.0 FL) 90.1 MCH (27.0 - 31.0 PG) 30.8 MCHC (33.0 - 37.0 G/DL) 34.2 RDW (11.5 - 14.5 %) 13.9 Plt Count (130 - 400 /CUMM) 193 MPV (7.4 - 10.4 FL) 8.5 Gran % (42.2 - 75.2 %) 64.4 Lymphocytes % (20.5 - 51.1 %) 26.3 Monocytes % (1.7 - 9.3 %) 6.7 Eosinophils % (0 - 5 %) 2.1 Basophils % (0.0 - 2.0 %) 0.5 Absolute Granulocytes (1.4 - 6.5 /CUMM) 4.5 Absolute Lymphocytes (1.2 - 3.4 /CUMM) 1.9 Absolute Monocytes (0.10 - 0.60 /CUMM) 0.5 Absolute Eosinophils (0.0 - 0.7 /CUMM) 0.1 Absolute Basophils (0.0 - 0.2 /CUMM) 0 Serology Lyme Disease Antibody Cancelled 11/22 11/22 0922 0801 Chemistry Sodium (137 - 145 mmol/L) 143 Potassium (3.5 - 5.1 mmol/L) 4.0 Chloride (98 - 107 mmol/L) 106 Carbon Dioxide (22 - 30 mmol/L) 28 Anion Gap (5 - 16) 9 BUN (9 - 20 mg/dL) 19 Creatinine (0.7 - 1.2 mg/dL) 1.1 Estimated GFR (>60 ml/min) > 60 BUN/Creatinine Ratio (7 - 25 %) 17.3 Glucose (65 - 99 mg/dL) 91 Lactic Acid (0.7 - 2.1 mmol/L) 0.9 Uric Acid (3.5 - 8.5 mg/dL) 7.5 Calcium (8.4 - 10.2 mg/dL) 9.4 Total Bilirubin (0.2 - 1.3 mg/dL) 0.5 AST (17 - 59 U/L) 14 L ALT (21 - 72 U/L) 22 Alkaline Phosphatase (< 127 U/L) 80 Total Protein (6.3 - 8.2 g/dL) 7.4 Albumin (3.5 - 5.0 g/dL) 4.1 Globulin (1.9 - 4.2 gm/dL) 3.3 Albumin/Globulin Ratio (1.1 - 2.2 %) 1.2 Amylase (30 - 110 U/L) 88 Lipase (23 - 300 U/L) 620 H Hematology CBC w Diff NO MAN DIFF REQ WBC (4.8 - 10.8 /CUMM) 9.9 RBC (4.70 - 6.10 /CUMM) 5.34 Hgb (14.0 - 18.0 G/DL) 16.5 Hct (42 - 52 %) 47.8 MCV (80.0 - 94.0 FL) 89.4 MCH (27.0 - 31.0 PG) 30.8 MCHC (33.0 - 37.0 G/DL) 34.5 RDW (11.5 - 14.5 %) 13.9 Plt Count (130 - 400 /CUMM) 192 MPV (7.4 - 10.4 FL) 8.1 Gran % (42.2 - 75.2 %) 74.7 Lymphocytes % (20.5 - 51.1 %) 16.6 L Monocytes % (1.7 - 9.3 %) 6.7 Eosinophils % (0 - 5 %) 1.6 Basophils % (0.0 - 2.0 %) 0.4 Absolute Granulocytes (1.4 - 6.5 /CUMM) 7.4 H Absolute Lymphocytes (1.2 - 3.4 /CUMM) 1.6 Absolute Monocytes (0.10 - 0.60 /CUMM) 0.7 H Absolute Eosinophils (0.0 - 0.7 /CUMM) 0.2 Absolute Basophils (0.0 - 0.2 /CUMM) 0 Serology Lyme Disease Antibody Pending Urines Urine Color (YEL,AMB,STR) YEL Urine Clarity (CLEAR) CLEAR Urine pH (5.0 - 8.0) 6.0 Ur Specific [place] (1.001 - 1.035) >= 1.030 Urine Protein (NEG,<30 MG/DL) NEG Urine Ketones (NEG) NEG Urine Nitrite (NEG) NEG Urine Bilirubin (NEG) NEG Urine Urobilinogen (0.1 - 1.0 EU/dl) 0.2 Ur Leukocyte Esterase (NEG) NEG Ur Microscopic SEDIMENT EXAMINED Urine RBC (0 - 5 /HPF) 3-5 Urine WBC (0 - 2 /HPF) 5-10 H Ur Epithelial Cells (NONE,FEW) FEW Urine Mucus (FEW,NONE) FEW Urine Hemoglobin (NEG) MOD H Urine Glucose (N MG/DL) NEG
[2017-11-24 13:06] LABS: ABSOLUTE BASOPHIL COUNT 0 /CUMM (0.0-0.2); ABSOLUTE EOSINOPHIL COUNT 0.2 /CUMM (0.0-0.7); ABSOLUTE LYMPH COUNT 1.8 /CUMM (1.2-3.4); ABSOLUTE MONOCYTE COUNT 0.5 /CUMM (0.10-0.60); BASOPHIL % 0.4 % (0.0-2.0); EOSINOPHIL % 2.3 % (0-5); GRANULOCYTE % 66.6 % (42.2-75.2); HEMATOCRIT 49.7 % (42-52); MEAN CORPUSCULAR HGB 30.6 PG (27.0-31.0); MEAN CORPUSCULAR HGB CONC 34.1 G/DL (33.0-37.0); MEAN CORPUSCULAR VOLUME 89.7 FL (80.0-94.0); MEAN PLATELET VOLUME 8.5 FL (7.4-10.4); PLATELET COUNT 209 /CUMM (130-400); RBC DISTRIBUTION WIDTH 14.2 % (11.5-14.5); RED BLOOD CELL CT 5.54 /CUMM (4.70-6.10); WHITE BLOOD CELL COUNT 7.5 /CUMM (4.8-10.8)
[2017-11-24 14:35] VITALS: BP 122/78
[2017-11-24 22:18] VITALS: BP 130/80
[2017-11-25 06:40] VITALS: BP 114/70
--- NOTE | 2017-11-25 07:15 | PN- Housestaff ---
Subjective Follow-up For: Abdominal pain and rash lower abdomen Subjective: Patient seen and examined at bedside. No overnight events. Patient lying in his bed comfortably. Patient feels this pain and rash, has reduced since admission. No more diffuse abdominal pain. Patient complains of constipation. Review of Systems Constitutional: Reports: no symptoms, see HPI. Objective Last 24 Hrs of Vital Signs/I&O Vital Signs Date Time Temp Pulse Resp B/P B/P Pulse O2 O2 Flow FiO2 Mean Ox Delivery Rate 11/25 0640 97.8 58 16 114/70 97 Room Air 11/24 2218 98.9 58 20 130/80 98 Room Air 11/24 1435 98.0 72 20 122/78 96 Intake & Output 11/25 1600 11/25 0800 11/25 0000 Intake Total 300 200 Output Total Balance 300 200 Intake, Oral 300 200 Patient 196 lb Weight Weight Bed scale Measurement Method Physical Exam General Appearance: Alert, Oriented X3, Cooperative, No Acute Distress Cardiovascular: Regular Rate, Normal S1, Normal S2, No Murmurs Lungs: Clear to Auscultation Abdomen: Soft, No Tenderness, No Hepatospenomegaly Neurological: Normal Speech, Strength at 5/5 X4 Ext, Normal Tone Current Medications: Current Medications Sig/Oz Start time Last Medication Dose Route Stop Time Status Admin Calcium Carbonate 500 MG DAILY 11/23 1147 AC 11/25 PO 0754 Docusate Sodium 100 MG DAILY 11/24 0913 11/25 PO 0753 Doxycycline Hyclate 100 MG BID 11/22 2100 AC 11/25 PO 0754 Gabapentin 100 MG Q8 11/23 2200 AC 11/25 PO 0552 Lidocaine 1 PAT DAILY 11/22 1515 11/25 EXT 0801 Magnesium Hydroxide 30 ML ONCE ONE 11/25 0830 AC PO 11/25 0831 Nicotine 7 MG DAILY 11/22 2300 AC 11/25 TOP 0754 Omeprazole 20 MG BID 11/24 1440 AC 11/25 PO 0754 Oxycodone HCl 5 MG ONCE ONE 11/24 0845 IA 11/24 PO 11/24 0846 1015 Oxycodone/ 1 TAB Q6P PRN 11/22 1815 11/25 Acetaminophen PO 0552 Polyethylene Glycol 17 GM DAILY 11/24 0913 AC 11/25 PO 0753 Valacyclovir HCl 1,000 MG TID 11/22 2100 DC 11/23 PO 2002 Last 24 Hrs of Lab/Steven Results Last 24 Hrs of Labs/Mics: Laboratory Tests 11/24/17 1201: Anion Gap 12, Estimated GFR > 60, BUN/Creatinine Ratio 13.3, Glucose 90, Calcium 9.8, Total Bilirubin 0.8, AST 18, ALT 34, Alkaline Phosphatase 90, Total Protein 8.0, Albumin 4.3, Globulin 3.7, Albumin/Globulin Ratio 1.2, Lipase 401 H, CBC w Diff NO MAN DIFF REQ, RBC 5.54, MCV 89.7, MCH 30.6, MCHC 34.1, RDW 14.2, MPV 8.5 , Gran % 66.6, Lymphocytes % 24.3, Monocytes % 6.4, Eosinophils % 2.3, Basophils % 0.4, Absolute Granulocytes 5.0, Absolute Lymphocytes 1.8, Absolute Monocytes 0.5, Absolute Eosinophils 0.2, Absolute Basophils 0 Assessment/Plan Assessment: 52-year-old man with past medical history of diverticulitis, kidney stones, gallstones, reversible ischemia on nuclear stress test status post cardiac cath recently in 2014 presented to the ED with a chief complaint of abdominal pain. Assessment and plan Abdominal pain for evaluation. * Patient initially was admitted for questionable pancreatitis/intra-abdominal pathology. Patient was cleared by surgery for any intra-abdominal pathology/ pancreatitis. Surgery felt that his pain was more likely neuropathic given his multiple joint pain. * Patient was also seen by infectious disease for his rash and the left lower abdomen. Initial thought was herpes zoster and hence was started on Valtrex but that was discontinued. ID felt it is most likely Lyme rash. Hence he was started on doxycycline. As per surgery, he was started on gabapentin for 2 weeks. * Patient has constipation-on senna, MiraLAX. We will give him 1 dose of milk of magnesia today. * Chronic back pain-on Lidoderm patch. Plan for today-awaiting Lyme titer. Problem List: 1. Abdominal pain Pain Ratin Pain Location: Lower abdomen and back Pain Goal: Remain pain free Pain Plan: Percocet Tomorrow's Labs & Rationales: cbc,bep
--- NOTE | 2017-11-25 09:12 | PN- Gastroenterology ---
Assessment/Plan GI Assessment/Recommendations: Abdominal wall/flank pain with neuropathic quality. No evidence of intra- abdominal or retroperitoneal process, by history/examination/imaging. This is not clinically pancreatitis. Continuing improvement in pain, temporally concurrent with initiation of gabapentin. Recommendations * Regular diet * Continue gabapentin for 2 week course * Await Lyme titer * Discontinue valacyclovir per ID * Begin PPI twice a day * Outpatient evaluation/management of GERD Thank you very much for having allowed GI participation in this patient's care. I will no longer follow the patient in the hospital. Please call or reconsult as needed. I will arrange for outpatient GI follow-up following discharge. Subjective Subjective: Pain markedly improved. No nausea or vomiting. Tolerating diet. Objective Vital Signs and I&Os Vital Signs Date Time Temp Pulse Resp B/P B/P Pulse O2 O2 Flow FiO2 Mean Ox Delivery Rate 11/25 0640 97.8 58 16 114/70 97 Room Air 11/24 2218 98.9 58 20 130/80 98 Room Air 11/24 1435 98.0 72 20 122/78 96 Intake & Output 11/25 1600 11/25 0400 11/24 1600 11/24 0400 11/23 1600 11/23 0400 Intake Total 300 200 241 574 9531 300 Output Total Balance 300 200 615 440 4877 300 Intake, Oral 300 200 869 337 0400 300 Patient 196 lb 202 lb 190 lb Weight Weight Bed scale Bed scale Reported by Patient Measurement Method Physical Exam: Sclera anicteric. Abdomen softer, less tenderness. Current Medications: Current Medications Sig/Oz Start time Last Medication Dose Route Stop Time Status Admin Calcium Carbonate 500 MG DAILY 11/23 1147 AC 11/25 PO 0754 Docusate Sodium 100 MG DAILY 11/24 0913 AC 11/25 PO 0753 Doxycycline Hyclate 100 MG BID 11/22 2100 AC 11/25 PO 0754 Gabapentin 100 MG Q8 11/23 2200 AC 11/25 PO 0552 Lidocaine 1 PAT DAILY 11/22 1515 11/25 EXT 0801 Magnesium Hydroxide 30 ML ONCE ONE 11/25 0830 DC 11/25 PO 11/25 0831 0823 Nicotine 7 MG DAILY 11/22 2300 AC 11/25 TOP 0754 Omeprazole 20 MG BID 11/24 1440 AC 11/25 PO 0754 Oxycodone/ 1 TAB Q6P PRN 11/22 1815 06/04 Acetaminophen PO 0552 Polyethylene Glycol 17 GM DAILY 11/24 0913 AC 11/25 PO 0753 Results Pertinent Lab Results: Laboratory Tests 11/24 11/23 1201 1930 Chemistry Sodium (137 - 145 mmol/L) 140 Potassium (3.5 - 5.1 mmol/L) 4.3 Chloride (98 - 107 mmol/L) 104 Carbon Dioxide (22 - 30 mmol/L) 24 Anion Gap (5 - 16) 12 BUN (9 - 20 mg/dL) 16 Creatinine (0.7 - 1.2 mg/dL) 1.2 Estimated GFR (>60 ml/min) > 60 BUN/Creatinine Ratio (7 - 25 %) 13.3 Glucose (65 - 99 mg/dL) 90 Calcium (8.4 - 10.2 mg/dL) 9.8 Total Bilirubin (0.2 - 1.3 mg/dL) 0.8 AST (17 - 59 U/L) 18 ALT (21 - 72 U/L) 34 Alkaline Phosphatase (< 127 U/L) 90 Total Protein (6.3 - 8.2 g/dL) 8.0 Albumin (3.5 - 5.0 g/dL) 4.3 Globulin (1.9 - 4.2 gm/dL) 3.7 Albumin/Globulin Ratio (1.1 - 2.2 %) 1.2 Lipase (23 - 300 U/L) 401 H Hematology CBC w Diff NO MAN DIFF REQ NO MAN DIFF REQ WBC (4.8 - 10.8 /CUMM) 7.5 7.1 RBC (4.70 - 6.10 /CUMM) 5.54 5.12 Hgb (14.0 - 18.0 G/DL) 16.9 15.8 Hct (42 - 52 %) 49.7 46.1 MCV (80.0 - 94.0 FL) 89.7 90.1 MCH (27.0 - 31.0 PG) 30.6 30.8 MCHC (33.0 - 37.0 G/DL) 34.1 34.2 RDW (11.5 - 14.5 %) 14.2 13.9 Plt Count (130 - 400 /CUMM) 209 193 MPV (7.4 - 10.4 FL) 8.5 8.5 Gran % (42.2 - 75.2 %) 66.6 64.4 Lymphocytes % (20.5 - 51.1 %) 24.3 26.3 Monocytes % (1.7 - 9.3 %) 6.4 6.7 Eosinophils % (0 - 5 %) 2.3 2.1 Basophils % (0.0 - 2.0 %) 0.4 0.5 Absolute Granulocytes (1.4 - 6.5 /CUMM) 5.0 4.5 Absolute Lymphocytes (1.2 - 3.4 /CUMM) 1.8 1.9 Absolute Monocytes (0.10 - 0.60 /CUMM) 0.5 0.5 Absolute Eosinophils (0.0 - 0.7 /CUMM) 0.2 0.1 Absolute Basophils (0.0 - 0.2 /CUMM) 0 0 11/22 11/22 11/22 1736 1136 0922 Chemistry Sodium (137 - 145 mmol/L) 143 Potassium (3.5 - 5.1 mmol/L) 4.0 Chloride (98 - 107 mmol/L) 106 Carbon Dioxide (22 - 30 mmol/L) 28 Anion Gap (5 - 16) 9 BUN (9 - 20 mg/dL) 19 Creatinine (0.7 - 1.2 mg/dL) 1.1 Estimated GFR (>60 ml/min) > 60 BUN/Creatinine Ratio (7 - 25 %) 17.3 Glucose (65 - 99 mg/dL) 91 Lactic Acid (0.7 - 2.1 mmol/L) Cancelled 0.9 Uric Acid (3.5 - 8.5 mg/dL) 7.5 Calcium (8.4 - 10.2 mg/dL) 9.4 Total Bilirubin (0.2 - 1.3 mg/dL) 0.5 AST (17 - 59 U/L) 14 L ALT (21 - 72 U/L) 22 Alkaline Phosphatase (< 127 U/L) 80 Total Protein (6.3 - 8.2 g/dL) 7.4 Albumin (3.5 - 5.0 g/dL) 4.1 Globulin (1.9 - 4.2 gm/dL) 3.3 Albumin/Globulin Ratio (1.1 - 2.2 %) 1.2 Amylase (30 - 110 U/L) 88 Lipase (23 - 300 U/L) 620 H Hematology CBC w Diff NO MAN DIFF REQ WBC (4.8 - 10.8 /CUMM) 9.9 RBC (4.70 - 6.10 /CUMM) 5.34 Hgb (14.0 - 18.0 G/DL) 16.5 Hct (42 - 52 %) 47.8 MCV (80.0 - 94.0 FL) 89.4 MCH (27.0 - 31.0 PG) 30.8 MCHC (33.0 - 37.0 G/DL) 34.5 RDW (11.5 - 14.5 %) 13.9 Plt Count (130 - 400 /CUMM) 192 MPV (7.4 - 10.4 FL) 8.1 Gran % (42.2 - 75.2 %) 74.7 Lymphocytes % (20.5 - 51.1 %) 16.6 L Monocytes % (1.7 - 9.3 %) 6.7 Eosinophils % (0 - 5 %) 1.6 Basophils % (0.0 - 2.0 %) 0.4 Absolute Granulocytes (1.4 - 6.5 /CUMM) 7.4 H Absolute Lymphocytes (1.2 - 3.4 /CUMM) 1.6 Absolute Monocytes (0.10 - 0.60 /CUMM) 0.7 H Absolute Eosinophils (0.0 - 0.7 /CUMM) 0.2 Absolute Basophils (0.0 - 0.2 /CUMM) 0 Serology Lyme Disease Antibody Cancelled Pending
--- NOTE | 2017-11-25 10:15 | Patient Discharge Instructions ---
Discharge Instructions General Discharge Information You were seen/treated for: Neuropathic pain Lyme Watch for these problems: In case of joint pains, abdominal pain, nausea, vomiting, chest pain, rash please go to nearest emergency room Special Instructions: Please follow-up with your primary care provider within 1-2 weeks of discharge and let them know about your recent admission at [facility] Diet Continue normal diet: No Recommended Diet: Regular Activity Full Activity/No Limits: No Activity Self Limited: Yes Acute Coronary Syndrome Inclusion Criteria At DC or during hospital stay patient has or had the following: ACS DIAGNOSIS No Discharge Core Measures Meds if any: Prescribed or Continued at Discharge Meds if any: NOT Prescribed or Continued at Discharge Congestive Heart Failure Inclusion Criteria At DC or during hospital stay patient has or had the following: CHF DIAGNOSIS No Discharge Core Measures Meds if any: Prescribed or Continued at Discharge Meds if any: NOT Prescribed or Continued at Discharge Cerebrovascular accident Inclusion Criteria At DC or during hospital stay patient has or had the following: CVA/TIA Diagnosis No Discharge Core Measures Meds if any: Prescribed or Continued at Discharge Meds if any: NOT Prescribed or Continued at Discharge Venous thromboembolism Inclusion Criteria VTE Diagnosis No VTE Type NONE VTE Confirmed by (Test) NONE Discharge Core Measures - Per Current guidelines, there needs to be overlap - treatment for the first 5 days of Warfarin therapy. - If discharged on Warfarin prior to 5 days of - overlap therapy, the patient will need to be - assessed for post discharge needs including - *Post discharge parental anticoagulation - *Warfarin and/or parental anticoagulation education - *Follow up date to check INR post discharge At least 5 days overlap therapy as Inpatient No Meds if any: Prescribed or Continued at Discharge Note: Overlap Therapy is Warfarin and Anticoagulant Meds if any: NOT Prescribed or Continued at Discharge
[2017-11-25] MEDS ORDERED: MIRALAX119 GM PO (10:18)
[2017-11-25] MEDS ORDERED: DOXYCYCLINE HY100 M2 PO ×2 (10:18→13:28)
[2017-11-25] MEDS ORDERED: GABAPENTIN100 M2 PO (10:18)
--- NOTE | 2017-11-25 11:05 | PN- Att Addend ---
Attending Addendum Attending Brief Note Patient feels better, the rash seems better too. Vital signs are stable no fever, his abdomen is soft. Yesterday was normal. Resident waiting for Lyme titer results. Will discharge him later on and follow-up as an outpatient. Intake & Output 11/25 1600 11/25 0400 11/24 1600 11/24 0400 11/23 1600 11/23 0400 Intake Total 300 200 139 590 7998 300 Output Total Balance 300 200 731 625 6397 300 Intake, Oral 300 200 224 178 1790 300 Patient 196 lb 202 lb 190 lb Weight Weight Bed scale Bed scale Reported by Patient Measurement Method Current Medications Sig/Oz Start time Last Medication Dose Route Stop Time Status Admin Calcium Carbonate 500 MG DAILY 11/23 1147 AC 11/25 PO 0754 Docusate Sodium 100 MG DAILY 11/24 0913 AC 11/25 PO 0753 Doxycycline Hyclate 100 MG BID 11/22 2100 AC 11/25 PO 0754 Gabapentin 100 MG Q8 11/23 2200 AC 11/25 PO 0552 Lidocaine 1 PAT DAILY 11/22 1515 AC 11/25 EXT 0801 Magnesium Hydroxide 30 ML ONCE ONE 11/25 0830 DC 11/25 PO 11/25 0831 0823 Nicotine 7 MG DAILY 11/22 2300 AC 11/25 TOP 0754 Omeprazole 20 MG BID 11/24 1440 AC 11/25 PO 0754 Oxycodone/ 1 TAB Q6P PRN 11/22 1815 AC 11/25 Acetaminophen PO 0552 Polyethylene Glycol 17 GM DAILY 11/24 0913 AC 11/25 PO 0753 Laboratory Tests 11/24/17 1201: Anion Gap 12, Estimated GFR > 60, BUN/Creatinine Ratio 13.3, Glucose 90, Calcium 9.8, Total Bilirubin 0.8, AST 18, ALT 34, Alkaline Phosphatase 90, Total Protein 8.0, Albumin 4.3, Globulin 3.7, Albumin/Globulin Ratio 1.2, Lipase 401 H, CBC w Diff NO MAN DIFF REQ, RBC 5.54, MCV 89.7, MCH 30.6, MCHC 34.1, RDW 14.2, MPV 8.5 , Gran % 66.6, Lymphocytes % 24.3, Monocytes % 6.4, Eosinophils % 2.3, Basophils % 0.4, Absolute Granulocytes 5.0, Absolute Lymphocytes 1.8, Absolute Monocytes 0.5, Absolute Eosinophils 0.2, Absolute Basophils 0 11/23/171929: CBC w Diff NO MAN DIFF REQ, RBC 5.12, MCV 90.1, MCH 30.8, MCHC 34.2, RDW 13.9, MPV 8.5, Gran % 64.4, Lymphocytes % 26.3, Monocytes % 6.7, Eosinophils % 2.1, Basophils % 0.5, Absolute Granulocytes 4.5, Absolute Lymphocytes 1.9, Absolute Monocytes 0.5, Absolute Eosinophils 0.1, Absolute Basophils 0 11/22/17 1736: Lyme Disease Antibody Cancelled 11/22/17 1136: Lactic Acid Cancelled Vital Signs Date Time Temp Pulse Resp B/P B/P Pulse O2 O2 Flow FiO2 Mean Ox Delivery Rate 11/25 0640 97.8 58 16 114/70 97 Room Air 11/24 2218 98.9 58 20 130/80 98 Room Air 11/24 1435 98.0 72 20 122/78 96
--- NOTE | 2017-11-25 12:05 | PN- Infect Dx ---
Subjective Subjective: Afebrile. His abdominal pain has improved. He also notes improvement in his suprapubic pruritus. Objective Last 24 Hrs of Vital Signs/I&O Vital Signs Date Time Temp Pulse Resp B/P B/P Pulse O2 O2 Flow FiO2 Mean Ox Delivery Rate 11/25 0640 97.8 58 16 114/70 97 Room Air 11/24 2218 98.9 58 20 130/80 98 Room Air 11/24 1435 98.0 72 20 122/78 96 Intake & Output 11/25 1600 11/25 0800 11/25 0000 Intake Total 300 200 Output Total Balance 300 200 Intake, Oral 300 200 Patient 196 lb Weight Weight Bed scale Measurement Method Physical Exam Other Physical Findings: He appears comfortable in no acute distress Abdomen is soft, minimally tender on palpation on the right side of his abdomen, with no guarding rebound, positive bowel sounds; mild maculopapular rash persists over the suprapubic area Results Last 24 Hours of Lab Results: Laboratory Tests 11/24 1201 Chemistry Sodium (137 - 145 mmol/L) 140 Potassium (3.5 - 5.1 mmol/L) 4.3 Chloride (98 - 107 mmol/L) 104 Carbon Dioxide (22 - 30 mmol/L) 24 Anion Gap (5 - 16) 12 BUN (9 - 20 mg/dL) 16 Creatinine (0.7 - 1.2 mg/dL) 1.2 Estimated GFR (>60 ml/min) > 60 BUN/Creatinine Ratio (7 - 25 %) 13.3 Glucose (65 - 99 mg/dL) 90 Calcium (8.4 - 10.2 mg/dL) 9.8 Total Bilirubin (0.2 - 1.3 mg/dL) 0.8 AST (17 - 59 U/L) 18 ALT (21 - 72 U/L) 34 Alkaline Phosphatase (< 127 U/L) 90 Total Protein (6.3 - 8.2 g/dL) 8.0 Albumin (3.5 - 5.0 g/dL) 4.3 Globulin (1.9 - 4.2 gm/dL) 3.7 Albumin/Globulin Ratio (1.1 - 2.2 %) 1.2 Lipase (23 - 300 U/L) 401 H Hematology CBC w Diff NO MAN DIFF REQ WBC (4.8 - 10.8 /CUMM) 7.5 RBC (4.70 - 6.10 /CUMM) 5.54 Hgb (14.0 - 18.0 G/DL) 16.9 Hct (42 - 52 %) 49.7 MCV (80.0 - 94.0 FL) 89.7 MCH (27.0 - 31.0 PG) 30.6 MCHC (33.0 - 37.0 G/DL) 34.1 RDW (11.5 - 14.5 %) 14.2 Plt Count (130 - 400 /CUMM) 209 MPV (7.4 - 10.4 FL) 8.5 Gran % (42.2 - 75.2 %) 66.6 Lymphocytes % (20.5 - 51.1 %) 24.3 Monocytes % (1.7 - 9.3 %) 6.4 Eosinophils % (0 - 5 %) 2.3 Basophils % (0.0 - 2.0 %) 0.4 Absolute Granulocytes (1.4 - 6.5 /CUMM) 5.0 Absolute Lymphocytes (1.2 - 3.4 /CUMM) 1.8 Absolute Monocytes (0.10 - 0.60 /CUMM) 0.5 Absolute Eosinophils (0.0 - 0.7 /CUMM) 0.2 Absolute Basophils (0.0 - 0.2 /CUMM) 0 Last 24 Hours of Steven Results: No cultures Assessment/Plan ID Impression: Improving, with decreased abdominal pain and tenderness, with the etiology of his pain remaining unclear, and with improvement in his suprapubic rash, which is no longer pruritic, but which also is of unclear etiology. A repeat lipase was decreased, though still elevated, of unclear significance with no evidence for pancreatitis on his recent CT scan. His suprapubic rash is not typical for erythema chronicum migrans but, as it appears to be improving, he can be continued on Doxycycline, now Day 3 for possible Lyme disease. Suggestion: 1. Follow-up Lyme titer 2. Continue Doxycycline to plan on a 10 day course
[2017-11-25 15:05] VITALS: BP 120/80
[2017-11-25 22:29] VITALS: BP 110/80
[2017-11-26 06:42] VITALS: BP 106/75
--- NOTE | 2017-11-26 07:17 | PN- Housestaff ---
Subjective Follow-up For: Abdominal Pain Suprapubic Rash ??Lyme Subjective: Patient sitting comfortably in bed, reports improvement in abdominal pain, only worse with certain moveemnts and also the rash seems to be clearing up. Denies any fever/chills. Review of Systems Constitutional: Reports: no symptoms. EENTM: Reports: no symptoms. Cardiovascular: Reports: no symptoms. Respiratory: Reports: no symptoms. Gastrointestinal: Reports: abdominal pain. Genitourinary: Reports: no symptoms. Musculoskeletal: Reports: no symptoms. Skin: Reports: rash. Neurological/Psychological: Reports: no symptoms. Hematologic/Endocrine: Reports: no symptoms. Immunologic/Allergic: Reports: no symptoms. Objective Last 24 Hrs of Vital Signs/I&O Vital Signs Date Time Temp Pulse Resp B/P B/P Pulse O2 O2 Flow FiO2 Mean Ox Delivery Rate 11/26 0642 98.3 59 20 106/75 100 Room Air 11/25 2229 98.0 63 18 110/80 97 / 1505 98.6 83 20 120/80 98 Intake & Output 11/26 1600 11/26 0800 06/ 0000 Intake Total 300 400 400 Output Total Balance 300 400 400 Intake, Oral 300 400 400 Physical Exam General Appearance: Alert, Oriented X3, Cooperative Skin: No Breakdown, maculopapular rash in suprapubic area Cardiovascular: Regular Rate, Normal S1, Normal S2 Lungs: Clear to Auscultation, Normal Air Movement Abdomen: Normal Bowel Sounds, Soft, No Tenderness Extremities: No Clubbing, No Cyanosis, No Edema Current Medications: Current Medications Sig/Oz Start time Last Medication Dose Route Stop Time Status Admin Acetaminophen 500 MG Q6P PRN 11/25 1330 DCD 06 PO 0623 Calcium Carbonate 500 MG DAILY 11/23 1147 DCD / PO 0828 Docusate Sodium 100 MG DAILY 11/24 0913 DCD 11/26 PO 0828 Doxycycline Hyclate 100 MG BID 11/22 2100 DCD 06/ PO 0828 Gabapentin 100 MG Q8 11/23 2200 DCD 06/05 PO 0623 Lidocaine 1 PAT DAILY 11/22 1515 DCD 11/26 EXT 0828 Nicotine 7 MG DAILY 11/22 2300 DCD 11/26 TOP 0829 Omeprazole 20 MG BID 11/24 1440 DCD 06/ PO 0828 Ondansetron HCl 4 MG Q6P PRN 11/25 1315 DCD 11/25 IV 1955 Polyethylene Glycol 17 GM DAILY 11/24 0913 DCD 11/26 PO 0827 Assessment/Plan Assessment: 52-year-old man with past medical history of diverticulitis, kidney stones, gallstones, reversible ischemia on nuclear stress test status post cardiac cath recently in 2014 presented to the ED with a chief complaint of abdominal pain. Assessment and plan Abdominal pain for evaluation. * Patient initially was admitted for questionable pancreatitis/intra-abdominal pathology. Patient was cleared by surgery for any intra-abdominal pathology/ pancreatitis. Surgery felt that his pain was more likely neuropathic given his multiple joint pain and was started on gabapentin for 2 weeks. * Patient was also seen by infectious disease for his rash and the left lower abdomen. Initial thought was herpes zoster and hence was started on Valtrex but was discontinued later and was started on doxycycline for probable Lyme Rash to complete a 10 day course of ntibiotics. * Lyme titre pending; patient advised to follow up with his PCP for the results. * Patient was started on senna, MiraLAX for constipation. * Chronic back pain-on Lidoderm patch. DVT Prophylaxis; ALPS Patient is full code Problem List: 1. Abdominal pain 2. Rash Pain Ratin Pain Location: Abdomen Pain Goal: Remain pain free Pain Plan: Pain pathway Tomorrow's Labs & Rationales: None
[2017-11-26] MEDS ORDERED: DOXYCYCLINE HY100 M2 PO ×2 (09:59→10:42)
--- NOTE | 2017-11-26 10:09 | PN- Att Addend ---
Attending Addendum Attending Brief Note Patient did not go home last evening causing was very nauseous yesterday also hasn't had a bowel movement until several hours ago made him feel much better and the skin in the lower abdomen is looking better vital signs are stable no fever, dominant is soft with his Lyme titer is pending and will discharge patient today, continue the doxycycline for now. Follow-up the patient in the office in the next week and see the CMR. Intake & Output 11/26 1600 11/26 0400 11/25 1600 11/25 0400 11/24 1600 11/24 0400 Intake Total 917 424 8977 200 800 300 Output Total Balance 203 099 2611 200 800 300 Intake, IV 20 Intake, Oral 719 847 9163 200 800 300 Patient 196 lb Weight Weight Bed scale Measurement Method Current Medications Sig/Oz Start time Last Medication Dose Route Stop Time Status Admin Acetaminophen 500 MG Q6P PRN 11/25 1330 11/26 PO 0623 Bisacodyl 10 MG ONCE ONE 11/25 1330 DC 11/25 MO 11/25 1331 1335 Calcium Carbonate 500 MG DAILY 11/23 1147 11/26 PO 0828 Docusate Sodium 100 MG DAILY 11/24 0913 11/26 PO 0828 Doxycycline Hyclate 100 MG BID 11/22 2100 AC 11/26 PO 0828 Gabapentin 100 MG Q8 11/23 2200 AC 11/26 PO 0623 Lidocaine 1 PAT DAILY 11/22 1515 AC 11/26 EXT 0828 Nicotine 7 MG DAILY 11/22 2300 11/26 TOP 0829 Omeprazole 20 MG BID 11/24 1440 AC 11/26 PO 0828 Ondansetron HCl 4 MG Q6P PRN 11/25 1315 AC 11/25 IV 1955 Oxycodone/ 1 TAB Q6P PRN 11/22 1815 NV 11/25 Acetaminophen PO 1203 Polyethylene Glycol 17 GM DAILY 11/24 0913 11/26 PO 0827 Laboratory Tests 11/24/17 1201: Anion Gap 12, Estimated GFR > 60, BUN/Creatinine Ratio 13.3, Glucose 90, Calcium 9.8, Total Bilirubin 0.8, AST 18, ALT 34, Alkaline Phosphatase 90, Total Protein 8.0, Albumin 4.3, Globulin 3.7, Albumin/Globulin Ratio 1.2, Lipase 401 H, CBC w Diff NO MAN DIFF REQ, RBC 5.54, MCV 89.7, MCH 30.6, MCHC 34.1, RDW 14.2, MPV 8.5 , Gran % 66.6, Lymphocytes % 24.3, Monocytes % 6.4, Eosinophils % 2.3, Basophils % 0.4, Absolute Granulocytes 5.0, Absolute Lymphocytes 1.8, Absolute Monocytes 0.5, Absolute Eosinophils 0.2, Absolute Basophils 0 11/23/171929: CBC w Diff NO MAN DIFF REQ, RBC 5.12, MCV 90.1, MCH 30.8, MCHC 34.2, RDW 13.9, MPV 8.5, Gran % 64.4, Lymphocytes % 26.3, Monocytes % 6.7, Eosinophils % 2.1, Basophils % 0.5, Absolute Granulocytes 4.5, Absolute Lymphocytes 1.9, Absolute Monocytes 0.5, Absolute Eosinophils 0.1, Absolute Basophils 0 Vital Signs Date Time Temp Pulse Resp B/P B/P Pulse O2 O2 Flow FiO2 Mean Ox Delivery Rate 11/26 0642 98.3 59 20 106/75 100 Room Air 11/25 2229 98.0 63 18 110/80 97 11/25 1505 98.6 83 20 120/80 98
[2017-11-26] MEDS ORDERED: MIRALAX119 GM PO (10:42)
[2017-11-26] MEDS ORDERED: GABAPENTIN100 M2 PO (10:42)
--- NOTE | 2017-12-05 11:31 | Discharge Summary ---
Visit Information Visit Dates Admission Date: 11/22/17 Discharge Date: 11/26/17 Hospital Course Course Attending Physician: Rosalio Bar MD Primary Care Physician: Rosalio Bar MD Consulting Request: Consulting Specialty: General Surgery (And infectious diseases) Consulting Physician: Drs. Doc Sanchez Reason for Consult: abdominal pain and a rash Hospital Course: 52-year-old white male who has had some abdominal issues in the past comes in with abdominal pain for 2 or 3 days in the right lower quadrant and suprapubic area, no appetite, mild dysuria and a rash in the suprapubic area comes to the emergency room, has blood work slightly elevated lipase questioning pancreatitis. No acute abdominal pathology on CAT scan. Patient has had history of diverticulitis in the past the stones gallstones and has had a hernia repair and had a Pippa's procedure in the past while in the hospital was followed by surgery and infectious diseases was thought he did not have pancreatitis the rash was not typical for herpes zoster originally was started on acyclovir that was discontinued patient was continued on doxycycline. Patient slowly started to improve still had some pain. Also was constipated after he had a good bowel movement his abdominal pain also improved. His Lyme titer November 22 was 0.78 history was continued on doxycycline for a total of 10 days. Patient was discharged in stable condition. Complications: None Allergies: Coded Allergies: meperidine (From DEMEROL) ("I GOT VERY MEAN" 12/08/15) Significant Procedures: SERVICE DATE: 11/22/17-1003 EXAM TYPE: CAT - CT ABD & PELVIS W IV CONTRAST EXAMINATION: CT ABDOMEN AND PELVIS WITH CONTRAST CLINICAL INFORMATION: Right upper quadrant pain and tenderness. History of multiple abdominal surgeries over the last 2 years. COMPARISON: CT scan of the abdomen and pelvis dated 07/11/2017. TECHNIQUE: Multidetector volumetric imaging was performed of the abdomen and pelvis following IV administration of 94 mL of Optiray 320 intravenous contrast. Sagittal and coronal reformatted images were obtained on the technologist's workstation. DLP: 515.06 mGy-cm FINDINGS: LUNG BASES: There is minor bibasilar subsegmental atelectasis. LIVER, GALLBLADDER, AND BILIARY TREE: The liver is normal in size, shape, and attenuation. No focal hepatic lesion is present. The gallbladder is surgically absent. There is stable mild intrahepatic and extrahepatic biliary ductal dilatation. PANCREAS: Unremarkable. SPLEEN: Unremarkable. ADRENAL GLANDS: Unremarkable. KIDNEYS AND URETERS: The kidneys are normal in size, shape, and attenuation. No hydronephrosis, hydroureter, or calculi seen. No perinephric stranding. BLADDER: Unremarkable. GASTROINTESTINAL TRACT: The stomach and small bowel are unremarkable. There is no bowel obstruction. There is no colonic wall thickening or inflammatory change. The appendix is normal. There are distal colonic anastomotic sutures, unchanged. ABDOMINAL WALL: No significant hernia is appreciated. Postsurgical changes are noted in the anterior abdominal wall. LYMPH NODES: Normal. VASCULAR: Atherosclerosis of the abdominal aorta and common iliac arteries. Normal caliber aorta. Ectasia of the common iliac arteries, left greater than right. PELVIC VISCERA: Coarse calcifications in the prostate. OSSEOUS STRUCTURES: No acute abnormality. Stable mild degenerative changes in the spine and hips. IMPRESSION: No acute abnormality. No change from the prior exam. Status post cholecystectomy. Stable mild intrahepatic and extrahepatic biliary ductal dilatation. Pertinent Lab Results: 11/22/17 0922: Anion Gap 9, Estimated GFR > 60, BUN/Creatinine Ratio 17.3, Glucose 91, Lactic Acid 0.9, Calcium 9.4, Total Bilirubin 0.5, AST 14 L, ALT 22, Alkaline Phosphatase 80, Total Protein 7.4, Albumin 4.1, Globulin 3.3, Albumin/Globulin Ratio 1.2, Amylase 88, Lipase 620 H, CBC w Diff NO MAN DIFF REQ, RBC 5.34, MCV 89.4, MCH 30.8, MCHC 34.5, RDW 13.9, MPV 8.1, Gran % 74.7, Lymphocytes % 16.6 L , Monocytes % 6.7, Eosinophils % 1.6, Basophils % 0.4, Absolute Granulocytes 7.4 H, Absolute Lymphocytes 1.6, Absolute Monocytes 0.7 H, Absolute Eosinophils 0.2, Absolute Basophils 0, Lyme Disease Antibody Pending 11/22/17 0801: Urine Color YEL, Urine Clarity CLEAR, Urine pH 6.0, Ur Specific Glynn >= 1.030 , Urine Protein NEG, Urine Ketones NEG, Urine Nitrite NEG, Urine Bilirubin NEG, Urine Urobilinogen 0.2, Ur Leukocyte Esterase NEG, Ur Microscopic SEDIMENT EXAMINED, Urine RBC 3-5, Urine WBC 5-10 H, Ur Epithelial Cells FEW, Urine Mucus FEW, Urine Hemoglobin MOD H, Urine Glucose NEG 11/23/17 1930: CBC w Diff NO MAN DIFF REQ, RBC 5.12, MCV 90.1, MCH 30.8, MCHC 34.2, RDW 13.9, MPV 8.5, Gran % 64.4, Lymphocytes % 26.3, Monocytes % 6.7, Eosinophils % 2.1, Basophils % 0.5, Absolute Granulocytes 4.5, Absolute Lymphocytes 1.9, Absolute Monocytes 0.5, Absolute Eosinophils 0.1, Absolute Basophils 0 11/24/17 1201: Anion Gap 12, Estimated GFR > 60, BUN/Creatinine Ratio 13.3, Glucose 90, Calcium 9.8, Total Bilirubin 0.8, AST 18, ALT 34, Alkaline Phosphatase 90, Total Protein 8.0, Albumin 4.3, Globulin 3.7, Albumin/Globulin Ratio 1.2, Lipase 401 H, CBC w Diff NO MAN DIFF REQ, RBC 5.54, MCV 89.7, MCH 30.6, MCHC 34.1, RDW 14.2, MPV 8.5 , Gran % 66.6, Lymphocytes % 24.3, Monocytes % 6.4, Eosinophils % 2.3, Basophils % 0.4, Absolute Granulocytes 5.0, Absolute Lymphocytes 1.8, Absolute Monocytes 0.5, Absolute Eosinophils 0.2, Absolute Basophils 0 Disposition Summary Disposition Principal Diagnosis: Abdominal pain Rash probably diverticulitis Questionable Lyme disease Additional Diagnosis: History of diverticulitis History of kidney stones History of gallstones GERD Discharge Disposition: home or self care Discharge Instructions General Discharge Information Code Status: Full Code Patient's Diet: As tolerated Patient's Activity: As tolerated Follow-Up Instructions/Appts: Follow-up with Dr. Bar Medications at Discharge Discharge Medications: Start taking the following new medications: Doxycycline Hyclate (Doxycycline Hyclate) 100 MG CAPSULE 100 Milligram ORAL TWICE DAILY Qty = 12 No Refills Instructions: . Comments: Last Taken: 11/26/17 Time: 0815 AM Gabapentin (Gabapentin) 100 MG CAPSULE 100 Milligram ORAL EVERY 8 HOURS Qty = 36 No Refills Instructions: . Comments: Last Taken: 11/26/17 Time: 0630 AM Polyethylene Glycol 3350 (Miralax) 17 GRAM/DOSE POWDER 17 Gram ORAL DAILY Qty = 30 No Refills Instructions: . Comments: Last Taken: 11/26/17 Time: 0815 AM Copies To: Laura QUINTERO,Yash Mohan; Rosalio Bar MD; Doc QUINTERO,Emilio Gan MD Review Statement Documenting Attending: Rosalio Bar MD
== END 2017-11-26 10:47 | DRG 251 ==
LOC: ERH 07:36 → ERHI 14:00 → 2NA 14:00 → ENRESERV 16:16 → ENTRNSPT 17:13 → EDTRNSPT 17:25 → EDTRNSPTSTS 17:25 → 2NA 17:36 → CMPTRNSPT 17:38 → ENPENDDIS 11-26 10:03 → 2NA 11-26 10:47
PROVIDERS: Emergency Medicine; Internal Medicine; Student in an Organized Health Care Education/Training Program
DX: R10.11 Right upper quadrant pain (principal); L29.9 Pruritus, unspecified; F17.210 Nicotine dependence, cigarettes, uncomplicated; F41.9 Anxiety disorder, unspecified; J45.909 Unspecified asthma, uncomplicated; E78.5 Hyperlipidemia, unspecified; K21.9 Gastro-esophageal reflux disease without esophagitis; Z87.442 Personal history of urinary calculi; G62.9 Polyneuropathy, unspecified
CPT/HCPCS: 2NASP; 86618; 74177; 81001; 96361; 96374; 96375; 96376; J2405; J3490

== ENCOUNTER 2018-02-04 00:14 | Inpatient (IN) | payer OTHER ==
[~2018-02-04] VITALS: Ht 182.9 cm; Wt 85.0 kg
[~2018-02-04 00:14] MED LIST changes: +DOXYCYCLINE HY100 M2 PO; +GABAPENTIN100 M2 PO; +MIRALAX119 GM PO
--- NOTE | 2018-02-04 01:01 | ED GI/GU/ABDOMINAL COMPLAINT ---
History of Present Illness General Chief Complaint: Abdominal Pain/Flank Pain Stated Complaint: PT C/O ABD PAIN +V Source: patient Exam Limitations: no limitations Vital Signs & Intake/Output Vital Signs & Intake/Output Vital Signs Date Time Temp Pulse Resp B/P B/P Pulse O2 O2 Flow FiO2 Mean Ox Delivery Rate 02/04 0145 197/95 02/04 0120 97.5 57 22 218/97 100 Room Air Allergies Coded Allergies: meperidine (From DEMEROL) ("I GOT VERY MEAN" 12/08/15) Triage Nurses Notes Reviewed? yes Onset: Gradual Duration: hour(s): Timing: recent history Quality/Severity: cramping, moderate Location: epigastric, generalized abdomen Radiation: no radiation Activities at Onset: none Prior Abdominal Problems: similar symptoms Modifying Factors: Worsens With: palpation, vomiting. Associated Symptoms: abdominal pain, nausea/vomiting HPI: 52 YO GENTLEMAN H/O diverticulitis s/p resection 3 years ago, presents with nausea, vomiting, diarrhea, and intermittent severe intense abdominal pain since 1pm yesterday (02/03/18). He notes one loose bowel movement yesterday, but none since. He has been vomiting periodically, the last 2 hours ago. He has no fever, chills, dysuria, chest pain, shortness of breath. He is otherwise well. Past History Medical History Any Pertinent Medical History? 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 FHx: emphysema FATHER, . FH: diabetes mellitus Hx Contributory? No Review of Systems Review of Systems Constitutional: Reports: no symptoms. EENTM: Reports: no symptoms. Respiratory: Reports: no symptoms. Cardiovascular: Reports: no symptoms. GI: Reports: no symptoms. Genitourinary: Reports: no symptoms. Musculoskeletal: Reports: no symptoms. Skin: Reports: no symptoms. Neurological/Psychological: Reports: no symptoms. Hematologic/Endocrine: Reports: no symptoms. Immunologic/Allergic: Reports: no symptoms. All Other Systems: Reviewed and Negative Physical Exam Physical Exam General Appearance: well developed/nourished, moderate distress Head: atraumatic, normal appearance Eyes: Bilateral: normal appearance. Ears, Nose, Throat, Mouth: hearing grossly normal, moist mucous membrane Neck: normal inspection, supple, full range of motion Respiratory: normal breath sounds, chest non-tender, no respiratory distress, quiet respiration, lungs clear Cardiovascular: regular rate/rhythm Gastrointestinal: soft, diffuse tenderness along mid line of abdomen. no distension, no obvious hernias. Back: normal inspection Extremities: normal range of motion, evidence of injury Neurologic/Psych: no motor/sensory deficits, awake, alert, oriented x 3 Skin: intact, normal color, warm/dry Core Measures ACS in differential dx? No Sepsis Present: No Sepsis Focused Exam Completed? No Progress Differential Diagnosis: sbo vs diverticulitis vs other. Plan of Care: Orders Procedure Date/time Status HEPATIC FUNCTION PANEL 02/05 0600 Active CBC WITHOUT DIFFERENTIAL 02/05 0600 Active BASIC ELECTROLYTES PLUS BUN&CR 02/05 0600 Active Nothing by Mouth 02/04 B Active LACTIC ACID 02/04 0317 Active Pathway - chart 02/04 0247 Active TRIGLYCERIDES 02/04 0231 Complete ETHANOL 02/04 0231 Complete Patient Data 02/04 0227 Active Add-on Test (ER Only) 02/04 022 Active Saline Lock 02/04 022 Active Misc Message 02/04 022 Active ED Holding Orders 02/04 0225 Active Admit to inpatient 02/04 0225 Active Vital Signs 02/04 0225 Active Code Status 02/04 0225 Active Intake & Output 02/04 0129 Active TROPONIN LEVEL 02/04 0023 Complete LIPASE 02/04 0023 Complete HEPATIC FUNCTION PANEL 02/04 0023 Complete CBC WITHOUT DIFFERENTIAL 02/04 0023 Complete BASIC METABOLIC PANEL 02/04 0023 Complete AMYLASE 02/04 0023 Complete EKG 02/04 0023 Active US-COMPLETE ABDOMEN 02/04 UNK Active House Staff 02/04 UNK Active VTE Mechanical Prophylaxis 02/04 UNK Active Vital Signs 02/04 UNK Active Current Medications Sig/Oz Start time Last Medication Dose Stop Time Status Admin Nicotine 7 MG DAILY 02/04 0900 AC (Nicotine Cq) Heparin Sodium 5,000 UNIT Q8 02/04 0600 AC (Porcine) Morphine Sulfate 4 MG Q4P PRN 02/04 0330 AC (MORPHINE SULFATE) Lactated Ringer's 1,000 ML Q6H 02/04 0300 AC (Lactated Ringers) 02/04 1459 Acetaminophen 1,000 MG Q6P PRN 02/04 0245 AC (Ofirmev) Ondansetron HCl 4 MG Q6P PRN 02/04 0245 AC (Zofran) Laboratory Tests 02/04/18 0246: Triglycerides 101, Serum Alcohol < 10.0 02/04/18 0116: Anion Gap 14, Estimated GFR > 60, BUN/Creatinine Ratio 14.5, Glucose 125 H, Calcium 10.1, Total Bilirubin 2.3 H, Direct Bilirubin 1.4 H, AST 266 H, ALT 219 H, Alkaline Phosphatase 196 H, Troponin I < 0.01, Total Protein 8.6 H, Albumin 4.7, Amylase 3643 H, Lipase > 13585 H, CBC w Diff NO MAN DIFF REQ, RBC 5.70, MCV 90.0, MCH 31.6 H, MCHC 35.1, RDW 13.9, MPV 8.0, Gran % 91.8 H, Lymphocytes % 7.3 L, Monocytes % 0.6 L, Eosinophils % 0.3, Basophils % 0, Absolute Granulocytes 10.5 H, Absolute Lymphocytes 0.8 L, Absolute Monocytes 0.1, Absolute Eosinophils 0, Absolute Basophils 0 Diagnostic Imaging: Viewed by Me: CT Scan. Discussed w/RAD: CT Scan. Radiology Impression: PATIENT: KEISHA MARION PRESENT AGE: 52 PATIENT ACCOUNT NO: [id number] : 64 LOCATION: [facility] ORDERING PHYSICIAN: Marin Marinelli MD SERVICE DATE: 02/04/18 EXAM TYPE: CAT - CT ABD & PELVIS W/O IV CONTRAS EXAMINATION: CT ABDOMEN AND PELVIS WITHOUT CONTRAST CLINICAL INFORMATION: Abdominal pain. COMPARISON: 2017 TECHNIQUE: Multidetector volumetric imaging was performed from the superior aspect of the liver through the pubic symphysis. Sagittal and coronal reformatted images were obtained on the technologist's workstation. DLP: 655 mGy -cm FINDINGS: LUNG BASES: The lung bases are clear. Coronary artery calcifications. LIVER, GALLBLADDER, AND BILIARY TREE: The liver is normal in size, shape, and attenuation. No focal hepatic lesion or biliary ductal dilatation is present. The gallbladder is likely absent. Persistent dilatation of the common bile duct measuring up to 1.3 cm. No filling defects seen. PANCREAS: The pancreas is increased in prominence with edematous appearance. Surrounding inflammatory changes are noted along the pancreatic body and head. No focal fluid collection. No pancreatic ductal dilatation. SPLEEN: Unremarkable. ADRENAL GLANDS: Unremarkable. KIDNEYS AND URETERS: The kidneys are normal in size, shape, and attenuation. No hydronephrosis, hydroureter, or calculi seen. No perinephric stranding. BLADDER: Unremarkable. GASTROINTESTINAL TRACT: The stomach is unremarkable. The small bowel is normal in caliber. No obstruction. No colonic wall thickening or inflammation. Normal appendix. No free air or free fluid. ABDOMINAL WALL: No significant hernia is appreciated. LYMPH NODES: Normal. VASCULAR: Ectatic appearance of the left common iliac artery, measuring 2.3 cm. Mild atherosclerotic calcification. PELVIC VISCERA: The prostate and seminal vesicles are unremarkable. OSSEOUS STRUCTURES: No acute or suspicious osseous abnormality. Moderate degenerative changes of the hips. Mild multilevel degenerative changes in the spine. IMPRESSION: Prominent inflammatory changes surrounding the pancreas with edematous appearance of the pancreas. This is suggestive of acute pancreatitis. Stable ectatic appearance of the left common iliac artery. DICTATED BY: Fly Hennessy MD DATE/TIME DICTATED:02/04/18148 SALESPERSON MEATS:VER[place] DATE/TIME TRANSCRIBED:148 CONFIDENTIAL, DO NOT COPY WITHOUT APPROPRIATE AUTHORIZATION. < Electronically signed in Other Vendor System> SIGNED BY: Fly Hennessy MD 02/04/18 0156 Initial ED EKG: sinus, no acute changes Departure Departure Disposition: STILL A PATIENT Condition: Stable Clinical Impression Primary Impression: Pancreatitis Referrals: Rosalio Bar MD (PCP/Family) Departure Forms: Customer Survey General Discharge Information Admission Note Spoke With: Rosalio Bar MD Documentation of Exam: Documentation of any treatments & extenuating circumstances including Concerns Regarding Discharge (functional status, medication knowledge or non-compliance, living conditions, etc.) that warrant an admission rather than observation: Pt with history of pancreatitis, presents with ct scan changes c/w pancreatitis. Lab called, noting elevation in amylase, lipase... he is presently more comfortable in the ED.... GI to consult in AM.
[2018-02-04 01:22] LABS: ABSOLUTE BASOPHIL COUNT 0 /CUMM (0.0-0.2); ABSOLUTE EOSINOPHIL COUNT 0 /CUMM (0.0-0.7); ABSOLUTE GRANULOCYTE CT 10.5 /CUMM (1.4-6.5); ABSOLUTE LYMPH COUNT 0.8 /CUMM (1.2-3.4); ABSOLUTE MONOCYTE COUNT 0.1 /CUMM (0.10-0.60); BASOPHIL % 0 % (0.0-2.0); EOSINOPHIL % 0.3 % (0-5); HEMATOCRIT 51.3 % (42-52); MEAN CORPUSCULAR HGB 31.6 PG (27.0-31.0); MEAN CORPUSCULAR HGB CONC 35.1 G/DL (33.0-37.0); PLATELET COUNT 137 /CUMM (130-400); RBC DISTRIBUTION WIDTH 13.9 % (11.5-14.5); WHITE BLOOD CELL COUNT 11.5 /CUMM (4.8-10.8)
[2018-02-04 01:51] LABS: GRANULOCYTE % 91.8 % (42.2-75.2)
--- NOTE | 2018-02-04 01:56 | CT SCAN REPORT ---
EXAMINATION: CT ABDOMEN AND PELVIS WITHOUT CONTRAST CLINICAL INFORMATION: Abdominal pain. COMPARISON: 11/22/2017 TECHNIQUE: Multidetector volumetric imaging was performed from the superior aspect of the liver through the pubic symphysis. Sagittal and coronal reformatted images were obtained on the technologist's workstation. DLP: 655 mGy-cm FINDINGS: LUNG BASES: The lung bases are clear. Coronary artery calcifications. LIVER, GALLBLADDER, AND BILIARY TREE: The liver is normal in size, shape, and attenuation. No focal hepatic lesion or biliary ductal dilatation is present. The gallbladder is likely absent. Persistent dilatation of the common bile duct measuring up to 1.3 cm. No filling defects seen. PANCREAS: The pancreas is increased in prominence with edematous appearance. Surrounding inflammatory changes are noted along the pancreatic body and head. No focal fluid collection. No pancreatic ductal dilatation. SPLEEN: Unremarkable. ADRENAL GLANDS: Unremarkable. KIDNEYS AND URETERS: The kidneys are normal in size, shape, and attenuation. No hydronephrosis, hydroureter, or calculi seen. No perinephric stranding. BLADDER: Unremarkable. GASTROINTESTINAL TRACT: The stomach is unremarkable. The small bowel is normal in caliber. No obstruction. No colonic wall thickening or inflammation. Normal appendix. No free air or free fluid. ABDOMINAL WALL: No significant hernia is appreciated. LYMPH NODES: Normal. VASCULAR: Ectatic appearance of the left common iliac artery, measuring 2.3 cm. Mild atherosclerotic calcification. PELVIC VISCERA: The prostate and seminal vesicles are unremarkable. OSSEOUS STRUCTURES: No acute or suspicious osseous abnormality. Moderate degenerative changes of the hips. Mild multilevel degenerative changes in the spine. IMPRESSION: Prominent inflammatory changes surrounding the pancreas with edematous appearance of the pancreas. This is suggestive of acute pancreatitis. Stable ectatic appearance of the left common iliac artery.
--- NOTE | 2018-02-04 02:38 | History & Physical ---
Manjeet Coyle 02/04/18 0237: General Information and HPI MD Statement: I have seen and personally examined KEISHA MARION and documented this H&P. The patient is a 52 year old M who presented with a patient stated chief complaint of [intractable abdominal pain and vomiting since 1pm today]. Source of Information: patient, old records History of Present Illness: Mr Marion is a 52 M with PMH HTN, diverticulitis s/p resection 3 years ago presents with nausea, vomiting, diarrhea, and intermittent severe intense abdominal pain since 1pm yesterday (02/03/18). Described the pain as "someone beating the hell out of my stomach". Localizes to periumbilical region radiating suprapubically and epigastrically. Initially pain was 3/10 currently 10/10 and constant in nature. Took massiel seltzer without relief. He notes one loose bowel movement yesterday, but none since. He has been vomiting periodically, the last 2 hours ago.States he vomited 4-5x total initially food but now watery, nonbloody nonbilious. States that he has had pancreatitis in the past. Adamantly denies any alcohol usage, and denies fevers/night sweats/chest pain/urinary symptoms/LE edema. Has had several abdominal surgeries in the past. Meds: Denies Allergies: Denies PSHX: left colectomy-Hartmans procedure with colostomy s/p reversal (09/05/15), cholecystectomy, left elbow surgery, rotator cuff surgery, SocHx: smoker (pack a day) x 30 years, alcohol denies, denied illicit drugs, no recent dietary changes ROS: Positive for: Chills, vomiting, abdominal pain Negative for: Fevers, night sweats, chest pain, palpitations, urinary symptoms, LE edema Allergies/Medications Allergies: Coded Allergies: meperidine (From DEMEROL) ("I GOT VERY MEAN" 12/08/15) Past History Travel History Traveled to [place] past 21 day No Medical History Neurological: NONE EENT: NONE Cardiovascular: hypertension Respiratory: NONE Gastrointestinal: diverticulitis, GERD Hepatic: cholelithiasis Renal: nephrolithiasis (s/p lithotripsy) Musculoskeletal: gout, ULNAR L ELBOW SURGERY R ROTATOR CUFF SURGERY Psychiatric: anxiety Endocrine: NONE Blood Disorders: NONE Cancer(s): NONE SYSTEM SUPPORT ANALYST/Reproductive: NONE History of MRSA: No History of VRE: No History of CDIFF: No Surgical History Surgical History: cholecystectomy, hernia repair-ventral, left cubital tunnel release LEFT COLOSTOMY 09/05/15 S/P HARTMANS PROCEDURE with reversal; R ROTATOR CUFF REPAIR L ELBOW SURGERY Past Family/Social History Family History Relations & Conditions if any MOTHER, , Age 50-60; Cause: Myocardial infarction. FHx: emphysema FATHER, . FH: diabetes mellitus Psychosocial History Who Do You Live With? self Services at Home: Nursing Primary Language: Sinhala Smoking Status: Current Everyday Smoker (30 pack years) ETOH Use: denies use Illicit Drug Use: denies illicit drug use Functional Ability ADLs Independent: dressing, eating, toileting, bathing. Ambulation: independent IADLs Independent: shopping, housework, finances, food prep, telephone, transportation , medication admin. Review of Systems Review of Systems Constitutional: Reports: see HPI, chills. Denies: fever, malaise. GI: Reports: abdominal pain, nausea, vomiting. Exam & Diagnostic Data Last 24 Hrs of Vital Signs/I&O Vital Signs Date Time Temp Pulse Resp B/P B/P Pulse O2 O2 Flow FiO2 Mean Ox Delivery Rate 02/04 0145 197/95 02/04 0120 97.5 57 22 218/97 100 Room Air Intake & Output 02/04 0800 02/04 0000 02/03 1600 Intake Total 1000 Output Total Balance 1000 Intake, IV 1000 Physical Exam General Appearance Alert, Oriented X3, Cooperative, Moderate Distress (2/2 pain) Skin multiple surgical scars to abdomen Skin Temp/Moisture Exam: Warm/Dry HEENT Atraumatic Lymphatic Axillary nl Cardiovascular Regular Rate, Normal S1, Normal S2 Lungs Clear to Auscultation, Normal Air Movement Abdomen Soft, diffuse tenderness, no peritoneal signs Neurological Strength at 5/5 X4 Ext, Sensation Intact Extremities No Edema Last 24 Hrs of Labs/Steven: Laboratory Tests 02/04/18 0246: Triglycerides 101, Serum Alcohol < 10.0 02/04/18 0116: Anion Gap 14, Estimated GFR > 60, BUN/Creatinine Ratio 14.5, Glucose 125 H, Calcium 10.1, Total Bilirubin 2.3 H, Direct Bilirubin 1.4 H, AST 266 H, ALT 219 H, Alkaline Phosphatase 196 H, Troponin I < 0.01, Total Protein 8.6 H, Albumin 4.7, Amylase 3643 H, Lipase > 58775 H, CBC w Diff NO MAN DIFF REQ, RBC 5.70, MCV 90.0, MCH 31.6 H, MCHC 35.1, RDW 13.9, MPV 8.0, Gran % 91.8 H, Lymphocytes % 7.3 L, Monocytes % 0.6 L, Eosinophils % 0.3, Basophils % 0, Absolute Granulocytes 10.5 H, Absolute Lymphocytes 0.8 L, Absolute Monocytes 0.1, Absolute Eosinophils 0, Absolute Basophils 0 Assessment/Plan Assessment: Mr Marion is a 52 M with PMH HTN, diverticulitis s/p resection 3 years ago presents with nausea, vomiting, diarrhea, and intermittent severe intense abdominal pain since 1pm yesterday (02/03/18). He has had pancreatitis in the past, and has a lipase >62970. Serum EtOH and triglycerides are unremarkable. Will r/o gallstone pancreatitis. Given his intense pain, worst differential is concern for perforation however CT scan is suggestive for pancreatitis without any perforation and patient is not peritoneal. He is also hemodynamically stable although is hypertensive likely 2/2 pain. Problem list/Assessment/Hospital Course: #Acute pancreatitis, unclear etiology #Transaminitis/Elev AlkP, likely reactive #R/o Biliary causes (choledocolithiasis, etc) #Active smoker #PMHx as above - Admit to general medicine - Vitals per protocol, monitor I&O per protocol. - Start LR 150cc/hr continuous IVF hydration - Keep NPO - Continue home meds - Pending RUQ U/S AB to rule out any biliary causes of pancreatitis. - Pending GI consult in the AM. - Nicotine patch PRN. - Trend BEP/LFTs - Pain per pathway w/ IV Morphine/Dilaudid PRN DVT PPx IV access NPO FC Dispo As Ranked By This Provider Problem List: 1. Pancreatitis Core Measures/Misc (03/10) Acute Coronary Syndrome ACS Diagnosis: No Congestive Heart Failure Congestive Heart Failure Diagnosis No Cerebrovascular Accident CVA/TIA Diagnosis: No VTE (View Protocol) VTE Risk Factors Age>40 No Mechanical VTE Prophylaxis d/t N/A MechProphylax Ordered No VTE Pharm Prophylaxis d/t NA PharmProphylax ordered Sepsis (View protocol) Sepsis Present: No If YES complete Sepsis Event Note If YES complete Sepsis Event Note Lillian Lees 02/04/18 0248: Core Measures/Misc (03/10) Sepsis (View protocol) If YES complete Sepsis Event Note If YES complete Sepsis Event Note Resident Review Statement Resident Statement: examined this patient, discussed with internet sales manager, agreed with internet sales manager, discussed with family, reviewed EMR data (avail), discussed with nursing , discussed with case mgmt, reviewed images, amended to note Other Findings: Mr. Marion is a 52yo M w/ PMH of diverticulitis, kidney stones s/p lithotripsy, gallstones s/p cholecystectomy, s/p Pippa procedure w/ temporary colostomy followed by revision in 2015, s/p hernia repair, reversible ischemia on nuclear stress test status post cardiac cath recently in 2014 presented to [facility] w/ N/V/D/severe intermittent ab pain since 1pm of 02/03/2018, endorseed loose BM x 1 on 02/03 but none since, w/ intermittent non-bloody vomiting, mostly foods. During our clinical interaction, patient denied recent travel/sick contacts, fever/lightheadedness/diaphoresis/night sweat/weight change/cough/SOB/Chest Pain /urinary abnormality, or other skin/musculoskeletal/neurological/mood disorders, or dietary/appetite change. -Smoking: active smoker 30ppy -Alcohol: denied -Drugs: denied - On admission, Vitals: stable afebrile, HTN 218/97 Physical exam as above. Pertinent findings include acute distress 2/2 pain w/ HTN on monitor, and epigastric and LLQ ab pain on palpation, decreased BS. Limited exam due to pain. -CBC: mild leukocytosis 11.5, otherwise WNL -CMP: WNl except Amylase/Lipase 3643/>24405, Tb/DB 2.4/1.4, AST/ALT 266/219, ALKP 196, trop -ve x 1, -AB CT: Prominent inflammatory changes surrounding the pancreas with edematous appearance of the pancreas. This is suggestive of acute pancreatitis. Stable ectatic appearance of the left common iliac artery. -EKG: NSR w/o significant ST-T abnormalities, unchanged from previous. -Last Echo: 2011 by Wade, stage 2 diastolic dysfunction -Interventions in ER: NS bolus x 1, Morphine 6mg IV x 2, ZOfran IV x 1 Problem list/Assessment/Hospital Course: #Acute pancreatitis, unclear etiology #Transaminitis/Elev AlkP, likely reactive #R/o Biliary causes (choledocolithiasis, etc) #Active smoker #PMHx as above - Admit to general medicine - Vitals per protocol, monitor I&O per protocol. - Start LR 150cc/hr continuous IVF hydration - Keep NPO - Continue home meds - Pending RUQ U/S AB to rule out any biliary causes of pancreatitis. - Pending GI consult in the AM. - Nicotine patch PRN. - Trend BEP/LFTs - Pain per pathway w/ IV Morphine/Dilaudid PRN DVT prophylaxis Lovenox + ALPS NPO IV Access: Peripheral IV Full Code Dispo: likely [facility]
--- NOTE | 2018-02-04 11:43 | ULTRASOUND REPORT ---
EXAMINATION: US ABDOMEN COMPLETE CLINICAL INFORMATION: Sudden onset nausea, vomiting, diarrhea with CT findings of pancreatitis status post cholecystectomy. Rule out any biliary causes or other acute process. COMPARISON: CT scan of the abdomen and pelvis from earlier today. TECHNIQUE: Real-time imaging of the abdominal viscera. FINDINGS: PANCREAS: The pancreatic body and portions of the head and tail are visualized and appear mildly edematous, consistent with the acute pancreatitis demonstrated on CT scan. Mild surrounding peripancreatic edema is seen. The remainder of the pancreas is obscured by overlying bowel gas. No significant pancreatic ductal dilatation is seen. ABDOMINAL AORTA: The proximal segment is normal in caliber. INFERIOR VENA CAVA: Visualized portions are normal. LIVER/COMMON BILE DUCT: There is mild intrahepatic ductal dilatation seen. Common bile duct is dilated, measuring up to 1 cm in diameter. The distal most pancreatic duct is not visualized but no filling defect is seen in the visualized portions of the common bile duct. The liver demonstrates normal size, contour and echogenicity. No focal lesion. GALLBLADDER: The patient is status post cholecystectomy. No focal fluid collection is seen in the gallbladder fossa. RIGHT KIDNEY: Normal. No hydronephrosis. No renal calculi or focal parenchymal lesions. The kidney measures 10.2 cm in maximum dimension. LEFT KIDNEY: Normal. No hydronephrosis. No renal calculi or focal parenchymal lesions. The kidney measures 12.1 cm in maximum dimension. SPLEEN: Normal. The spleen measures 10.9 cm in maximum dimension. FREE FLUID: None. IMPRESSION: 1. Edematous pancreas with peripancreatic fluid, consistent with acute pancreatitis. 2. The pancreatic head and portions of the tail are not visualized. 3. Intra and extrahepatic ductal dilatation is seen. Common bile duct measuring up to 1 cm. Findings may at least in part be related to the patient's postcholecystectomy state with similar appearance seen on older CT scan from 07/11/2017, at which time, no evidence of acute pancreatitis was seen. In the visualized portions of the common bile duct on today's exam, no filling defect is seen. Distal most CBD is, however, not visualized. Close clinical correlation is requested. 4. Status post cholecystectomy.
--- NOTE | 2018-02-04 13:26 | Admission Certification ---
Admission Certification Certification Statement - As attending physician, I certify that at the time of - admission, based on clinical presentation, severity of - symptoms, need for further diagnostic testing and - therapeutic interventions, and risk of adverse outcomes - without in-hospital treatment, in my clinical assessment, - this patient requires an acute hospital stay for a minimum - of two nights or longer. I have also considered psychsocial - factors such as support system, advanced age, financial - issues, cognitive issues, and failed out-patient treatments, - past re-admission history, safety of patient, and lack of - compliance as applicable. Specific rationale supporting this admission is: Severe abdominal pain and acute pancreatitis
--- NOTE | 2018-02-04 13:29 | PN- Att Addend ---
Attending Addendum Attending Brief Note 52-year-old white male with previous history of diverticulitis and abdominal surgeries. For a day also started having nausea vomiting and severe abdominal pain which made him come to the emergency room because the pain was so severe. In the emergency room the blood work showed abnormal pancreatic enzymes abnormal x-rays of the abdomen compatible with acute pancreatitis. Patient was admitted and will have a GI evaluation. Will be kept n.p.o. give pain medication follow- up to blood work very closely. Current Medications Sig/Oz Start time Last Medication Dose Route Stop Time Status Admin Acetaminophen 1,000 MG Q6P PRN 02/04 0245 DC IV Heparin Sodium 5,000 UNIT Q8 02/04 0600 AC (Porcine) SC Hydromorphone HCl 0 .STK-MED ONE 02/04 0420 DC .ROUTE Hydromorphone HCl 0.4 MG ONCE ONE 02/04 0315 DC 02/04 IV 02/04 0316 0415 Lactated Ringer's 1,000 ML Q6H 02/04 0300 AC 02/04 IV 02/04 1459 1125 Morphine Sulfate 0 .STK-MED ONE 02/04 0924 DC .ROUTE Morphine Sulfate 4 MG Q4P PRN 02/04 0330 AC 02/04 IV 0929 Morphine Sulfate 2 MG Q4P PRN 02/04 0245 DC IV Morphine Sulfate 6 MG ONCE ONE 02/04 0215 DC 02/04 IV 02/04 0216 0216 Morphine Sulfate 0 .STK-MED ONE 02/04 0214 DC .ROUTE Morphine Sulfate 6 MG ONCE ONE 02/04 0130 DC 02/04 IV 02/04 0131 0129 Morphine Sulfate 0 .STK-MED ONE 02/04 012 DC .ROUTE Nicotine 7 MG DAILY 02/04 0900 AC 02/04 TOP 0940 Ondansetron HCl 0 .STK-MED ONE 02/04 0924 DC .ROUTE Ondansetron HCl 4 MG Q6P PRN 02/04 0245 AC 02/04 IV 0929 Ondansetron HCl 0 .STK-MED ONE 02/04 0125 DC .ROUTE Ondansetron HCl 4 MG ONCE ONE 02/04 0115 DC 02/04 IV 02/04 0116 0129 Oxycodone HCl 0 .STK-MED ONE 02/04 1132 DC PO Oxycodone HCl 5 MG Q6P PRN 02/04 0800 AC 02/04 PO 1132 Sodium Chloride 1,000 ML BOLUS ONE 02/04 0130 DC 02/04 IV 02/04 0229 0122 Laboratory Tests 02/04/18 0317: Lactic Acid Cancelled 02/04/18 0246: Triglycerides 101, Serum Alcohol < 10.0 02/04/18 0116: Anion Gap 14, Estimated GFR > 60, BUN/Creatinine Ratio 14.5, Glucose 125 H, Calcium 10.1, Total Bilirubin 2.3 H, Direct Bilirubin 1.4 H, AST 266 H, ALT 219 H, Alkaline Phosphatase 196 H, Troponin I < 0.01, Total Protein 8.6 H, Albumin 4.7, Amylase 3643 H, Lipase > 56805 H, CBC w Diff NO MAN DIFF REQ, RBC 5.70, MCV 90.0, MCH 31.6 H, MCHC 35.1, RDW 13.9, MPV 8.0, Gran % 91.8 H, Lymphocytes % 7.3 L, Monocytes % 0.6 L, Eosinophils % 0.3, Basophils % 0, Absolute Granulocytes 10.5 H, Absolute Lymphocytes 0.8 L, Absolute Monocytes 0.1, Absolute Eosinophils 0, Absolute Basophils 0 Vital Signs Date Time Temp Pulse Resp B/P B/P Pulse O2 O2 Flow FiO2 Mean Ox Delivery Rate 02/04 1116 97.8 58 20 153/86 97 Room Air 02/04 0607 97.5 57 18 168/90 98 Room Air 02/04 0450 97.2 55 18 174/68 100 Room Air 02/04 0145 197/95 02/04 0120 97.5 57 22 218/97 100 Room Air
[2018-02-04 16:42] VITALS: BP 130/76
--- NOTE | 2018-02-04 18:12 | Cons- Gastroenterology ---
General Information and HPI Consulting Request Date of Consult: 02/04/18 Requested By: Rosalio Bar MD Reason for Consult: I was called earlier this morning to "assess pancreatitis" Source of Information: patient, old records Exam Limitations: fair historian History of Present Illness: 52 y/o male, HTN, non-DM, renal stones post ESWL, smoker, hx GERD, anxiety, 02/27: CCKY for biliary colic (path: chronic cholecystitis, cholesterolosis, & cholelithiasis), hx diverticulosis coli, post 09/05/15: Pippa's procedure for sigmoid diverticulitis with phlegmon, f/b 12/27/15: reversal of colostomy, KRISTIN, reinforcement of midline fascia with mesh. This was followed by 08/14/16: open mesh repair of ventral incisional hernia, along with bilateral advancement rectus muscular fascial flap reconstruction, all per Dr. Cordon. He also has hx gout & had numerous orthopedic procedures, including right rotator cuff surgery, & left elbow ulnar surgery.*He had a chronic pain syndrome in the right flank. 03/15/06: EGD/colonoscopy (purged) gastric bxs unremarkable, H. pylori negative; bxs GEJ- benign inflammation, without Collier's esophagus. 09/06/14: Combined baseline upper endoscopy to the third portion of the duodenum with biopsies, plus follow up colonoscopy to the terminal ileum with biopsies (*done for GERD & chronic vague right-sided abdominal sx, requiring multiple ER visits & OV with the GI TUBER OPERATOR)- ? mild gastroparesis with bile cleared from proximal stomach, random bxs D2/D3- neg, random bx antrum- mild CAG, HP-neg, bx inflamed cardia- mild CFG , HP-neg, 2 cm HH, random bxs distal esophagus at 42 cm/Z line & at 39 cm- nl esophageal mucosa, neg EOE; mod L tics, focal sigmoid erythema from 25-30 cm in midst of tics-colonic mucosa with focal hyperplastic change & hemorrhage, random bxs of TI, right colon, left colon, & rectum- all neg. (The pt was rxd Nexium 40 mg daily then) He was due for f/u surveillance colonoscopy x 10 yrs (avg risk) = 08/2024. He was told if inc sx, to consider GES (which he never had), TFT with TSH, HgbA1C, celiac panel, etc. He was then seen in inpatient GI consultation 04/22/[address] Srpague for sigmoid diverticulitis, txd with antibiotics. He ultimately then had 09/05/15: Pippa 's procedure, followed by 12/27/15: reversal of colostomy/KRISTIN & 08/14/16: open mesh repair of ventral incisional hernia, as above. He was most recently seen in inpatient GI consultation by Dr. Jenae Ardon , for chronic progressive vague right-sided abdominal/right flank pain, which was somewhat positional in nature. This was felt to have a neuropathic quality. History, exam, and imaging did not show any acute intra-abdominal or retroperitoneal process. He had a minimally elevated lipase then which was felt to be nonspecific. There was no clinical evidence of pancreatitis. A radicular process vs. zoster was considered, & he was rxd ANGE & Valacyclovir. A Lyme titer then was negative, although he did get a 10 day course of Doxycyline. Since 1 PM on 02/03/18, the patient noted nausea, vomiting, diarrhea, and intermittent, severe intense, abdominal pain, described as "someone beating the hell out of my stomach". It was localized to the periumbilical region, radiating suprapubically and epigastrically. Initially, the pain was "3 out of 10", then became "10 out of 10" and constant in nature. He took Iliana-Montezuma, without relief. He arrived at the [facility] 02/04/18 at 12:14 a.m. for the above, at which point, he was HTN, with BP 218/97, P 57, R 22, T 97.5, O2 sat RA 100%. He was initially in tears from the pain. He was rxd IV Zofran, MS, IV NS switched to IV LR He had a loose bowel movement 1 day [employer], none since, with minimal constipation, but no obstipation,watery diarrhea, or tenesmus. The vomitus initially showed partially digested food, but then became clear, non-bloody, non-bilious. He had chronic GERD, for which he took Tums prn. He was not on longstanding PPI. He denied any odynophagia or dysphagia. He denied using any NSAIDS, thiazides, or Sulfa meds. He denied any hematemesis, melena, or BRBPR. He denied any EtOH, transfusions, IVDA, HIV, or hx viral hepatitis. He denied any definite jaundice , dark urine, light stools, pruritus, or confusion. He denied any fevers, chills, night sweats, CP, SOB, symptoms of UTI or URI. There was no abdominal trauma. His appetite was fair, since his multiple abdominal surgeries a few years ago. He denied any early satiety. His weight had been stable for the past 2 years, but he stated that he was previously obese & lost > 100 lbs a few years ago, in the midst of tx of his diverticulitis. There is no FHx GI Ca, GI disease , inherited pancreatitis, or inherited liver disease. He was found to have newly elevated LFTs & elevated lipase (*see labs). 11/24/17: minimal lipase 401, with nl LFTs. 02/04/18: 0116- Admission labs-WBC 11.5 (92% gran/11 gran Ab), H/H 18/51.3, MCV 90, RDW 13.9, PLT 137, glucose 125, BUN/CR 16/1.1, GFR > 60, Na 141, K 4.0, HCO3 23, AG 14, Ca 10.1, amylase 3643, lipase > 10K, albumin 4.7, globulin 3.9, Tbil 2.3, DBil 1.4, alk phos 196, AST 266, ALT 219, troponin < 0.01; (no U/A or PT/ PTT). 02/04/18: 0246- *TG 101, [EtOH] < 10. 02/04/18: EKG- SB @ 57, nl axis, CA .20, no ischemic change. 02/04/18: CT ABDOMEN AND PELVIS WITHOUT IV CONTRAST (*per [facility] CARRENO, limited study w/o IV cont)- Prominent inflammatory changes surrounding the pancreas with edematous appearance of the pancreas. This is suggestive of acute pancreatitis. No PD dilitation. Post CCKY with postop CBD 1.3 cm (chronic), no filling defect. Stable ectatic appearance of the left common iliac artery. Normal AP. No hernia. DJD. 02/04/18: US ABDOMEN COMPLETE- 1. Edematous pancreas with peripancreatic fluid, consistent with acute pancreatitis. 2. The pancreatic head and portions of the tail are not visualized. 3. Intra and extrahepatic ductal dilatation is seen. Common bile duct measuring up to 1 cm. Findings may at least in part be related to the patient's postcholecystectomy state with similar appearance seen on older CT scan from 07/11/2017, at which time, no evidence of acute pancreatitis was seen. In the visualized portions of the common bile duct on today's exam, no filling defect is seen. Distal most CBD is, however, not visualized. Close clinical correlation is requested. 4. Status post cholecystectomy. *Unfortunately, no MRCP available at [facility] on Tuesdays, prohibiting this on . Allergies/Medications Allergies: Coded Allergies: meperidine (From DEMEROL) ("I GOT VERY MEAN" 12/08/15) Current Medications: Current Medications Sig/Oz Start time Last Medication Dose Route Stop Time Status Admin Acetaminophen 1,000 MG Q6P PRN 02/04 0245 DC IV Heparin Sodium 0 .STK-MED ONE 02/04 1359 DC (Porcine) .ROUTE Heparin Sodium 5,000 UNIT Q8 02/04 0600 AC 02/04 (Porcine) SC 2120 Hydromorphone HCl 0.8 MG Q3P PRN 02/04 1845 AC 02/04 IV 1932 Hydromorphone HCl 0 .STK-MED ONE 02/04 1356 DC .ROUTE Hydromorphone HCl 1 MG ONCE ONE 02/04 1345 DC / IV 02/04 1346 1400 Hydromorphone HCl 0 .STK-MED ONE 02/04 0420 DC .ROUTE Hydromorphone HCl 0.4 MG ONCE ONE 02/04 0315 DC / IV 02/04 0316 0415 Lactated Ringer's 1,000 ML Q6H 02/04 0300 DC 02/04 IV 02/04 1459 1125 Morphine Sulfate 0 .STK-MED ONE 02/04 0924 DC .ROUTE Morphine Sulfate 4 MG Q4P PRN 02/04 0330 AC 02/04 IV 2119 Morphine Sulfate 2 MG Q4P PRN 02/04 0245 DC IV Morphine Sulfate 6 MG ONCE ONE 02/04 0215 DC 02/04 IV 02/04 0216 0216 Morphine Sulfate 0 .STK-MED ONE 02/04 0214 DC .ROUTE Morphine Sulfate 6 MG ONCE ONE 02/04 0130 DC 02/04 IV 02/04 013 0129 Morphine Sulfate 0 .STK-MED ONE 02/04 012 DC .ROUTE Nicotine 7 MG DAILY 02/04 0900 AC 02/04 TOP 0940 Ondansetron HCl 0 .STK-MED ONE 02/04 0924 DC .ROUTE Ondansetron HCl 4 MG Q6P PRN 02/04 0245 AC 02/04 IV 1858 Ondansetron HCl 0 .STK-MED ONE 02/04 012 DC .ROUTE Ondansetron HCl 4 MG ONCE ONE 02/04 0115 DC 02/04 IV 02/04 0116 0129 Oxycodone HCl 0 .STK-MED ONE 02/04 1132 DC PO Oxycodone HCl 5 MG Q6P PRN 02/04 0800 AC 02/04 PO 1132 Sodium Chloride 1,000 ML BOLUS ONE 02/04 0130 DC 02/04 IV 02/04 0229 0122 Past History Travel History Traveled to [place] past 21 day No Medical History Blood Transfusion Hx: No Neurological: NONE EENT: NONE Cardiovascular: hypertension Respiratory: NONE Gastrointestinal: diverticulitis, GERD Hepatic: cholelithiasis (01/30/06: CCKY) Renal: nephrolithiasis (s/p lithotripsy) Musculoskeletal: gout, ULNAR L ELBOW SURGERY R ROTATOR CUFF SURGERY Psychiatric: anxiety Endocrine: NONE Blood Disorders: NONE Cancer(s): NONE BUTTON 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 , Age 58; Cause: Myocardial infarction. FHx: emphysema FATHER (smoker). , Age 66; Cause: COPD (chronic obstructive pulmonary disease). FH: diabetes mellitus Psychosocial History Where Do You Live? Home Who Do You Live With? self Services at Home: None Primary Language: Vietnamese Smoking Status: Current Everyday Smoker (30 pack years) ETOH Use: denies use Illicit Drug Use: denies illicit drug use Living Will? no Power of Resident Director/HCP? no Other Social History: Single. Lives with female roommate. No children. 30 pk yr cigarette smoker. No ETOH or illicit drugs. [facility]. Functional Ability ADLs Independent: dressing, eating, toileting, bathing. Ambulation: independent IADLs Independent: shopping, housework, finances, food prep, telephone, transportation , medication admin. Employment History Employment: Employed Profession/Employer: [employer] [facility] [facility] ECHO Results (as available) Date of last Echo 02/19/12 EF% 65 Review of Systems Review of Systems: Full 14 point ROS otherwise noncontributory, & as above. Review of Systems Constitutional: Denies: chills, diaphoresis, fever, malaise, weakness, unexplained weight loss. EENTM: Denies: blurred vision, double vision, visual changes, eye pain, eye drainage, eye tearing, icterus, ear discharge, ear pain, ear redness, hearing changes, nasal congestion, epistaxis, nasal pain, throat pain, throat swelling, mouth pain, tooth pain. Cardiovascular: Denies: chest pain, edema, orthopena, palpitations, peripheral edema, syncope. Respiratory: Denies: cough, hemoptysis, orthopnea, short of breath, sputum production, stridor, wheezing. GI: Reports: abdominal pain, nausea, vomiting. Denies: bloating, constipation, diarrhea, distention, bowel incontinence, melena, bloody stool, changes in stool , steatorrhea. Genitourinary: Denies: discharge, dysuria, frequency, hematuria, hesitation, nocturia, pain, urgency. Musculoskeletal: Denies: back pain, gout, joint pain, joint swelling, muscle pain, muscle stiffness, neck pain. Skin: Denies: cysts, change in skin color, change in hair/nails, dryness, erythema, jaundice, lesions, lymphangitis, lumps, moles, rash. Neurological/Psychological: Reports: anxiety, emotional problems. Denies: ataxia, cognitive dysfunction, confusion, depressed, dementia, headache, numbness, paresthesia, pre-existing deficit, petit mal seizures, tingling, tremors, tonic-clonic seizures, unable to move lower ext, unable to move upper ext, weakness, other. Hematologic/Endocrine: Denies: bruising, bleeding, polyuria, polydipsia. Immunologic/Allergic: Denies: splenectomy, HIV/AIDS, lymphadenopathy. All Other Systems: Reviewed and Negative Exam & Diagnostic Data Vital Signs and I&O Vital Signs Date Time Temp Pulse Resp B/P B/P Pulse O2 O2 Flow FiO2 Mean Ox Delivery Rate 02/04 1642 98.0 73 20 130/76 96 02/04 1440 97.9 65 20 155/84 97 02/04 1116 97.8 58 20 153/86 97 Room Air 02/04 0607 97.5 57 18 168/90 98 Room Air 02/04 0450 97.2 55 18 174/68 100 Room Air 02/04 0145 197/95 02/04 0120 97.5 57 22 218/97 100 Room Air Intake & Output 02/04 1600 02/04 0400 02/03 1600 02/03 0400 02/02 1600 02/02 0400 Intake Total 1000 1000 Output Total 500 Balance 500 1000 Intake, IV 1000 1000 Output, Urine 500 Physical Exam: Well-developed, well-nourished male in mild distress, non-toxic appearing. Sclera minimally icteric. Conjunctiva pink. Oropharynx clear. Slightly dry mucus membranes. No oral thrush. No aphthous ulcers. There is no adenopathy, thyromegaly, or JVD. No peripheral stigmata of inflammatory bowel disease or chronic liver disease on exam. No spiders on the anterior chest wall. No gynecomastia. No CVA tenderness. No spine tenderness. Lungs: clear to A&P. No wheezing, rales, or rhonchi. Heart exam: regular rate rhythm, S1 and S2, without any murmur. Abdominal exam: normal bowel sounds, soft belly, epigastric > RUQ tenderness on palpation, without guarding or rebound. No mass. No organomegaly. No fluid shift. No epigastric bruit. No pulsatile mass. Multiple scars. Digital rectal exam: deferred by patient. Extremities: without C, C, or E. No rash. Mild DJD. No palmar erythema. No Dupuytren's contractures. No palpable cords. Distal pulses 2+ bilaterally. DTRs 2+ bilaterally. Right handed. CN II-XII intact. Alert and oriented x 3. No tremor. No asterixis. Results Pertinent Lab Results: Laboratory Tests 02/04 02/04 02/04 0317 0246 0116 Chemistry Sodium (137 - 145 mmol/L) 141 Potassium (3.5 - 5.1 mmol/L) 4.0 Chloride (98 - 107 mmol/L) 105 Carbon Dioxide (22 - 30 mmol/L) 23 Anion Gap (5 - 16) 14 BUN (9 - 20 mg/dL) 16 Creatinine (0.7 - 1.2 mg/dL) 1.1 Estimated GFR (>60 ml/min) > 60 BUN/Creatinine Ratio (7 - 25 %) 14.5 Glucose (65 - 99 mg/dL) 125 H Lactic Acid Cancelled Calcium (8.4 - 10.2 mg/dL) 10.1 Total Bilirubin (0.2 - 1.3 mg/dL) 2.3 H Direct Bilirubin (< 0.4 mg/dL) 1.4 H AST (17 - 59 U/L) 266 H ALT (21 - 72 U/L) 219 H Alkaline Phosphatase (< 127 U/L) 196 H Troponin I (<0.11 ng/ml) < 0.01 Total Protein (6.3 - 8.2 g/dL) 8.6 H Albumin (3.5 - 5.0 g/dL) 4.7 Triglycerides (<150 mg/dL) 101 Amylase (30 - 110 U/L) 3643 H Lipase (23 - 300 U/L) > 74950 H Hematology CBC w Diff NO MAN DIFF REQ WBC (4.8 - 10.8 /CUMM) 11.5 H RBC (4.70 - 6.10 /CUMM) 5.70 Hgb (14.0 - 18.0 G/DL) 18.0 Hct (42 - 52 %) 51.3 MCV (80.0 - 94.0 FL) 90.0 MCH (27.0 - 31.0 PG) 31.6 H MCHC (33.0 - 37.0 G/DL) 35.1 RDW (11.5 - 14.5 %) 13.9 Plt Count (130 - 400 /CUMM) 137 MPV (7.4 - 10.4 FL) 8.0 Gran % (42.2 - 75.2 %) 91.8 H Lymphocytes % (20.5 - 51.1 %) 7.3 L Monocytes % (1.7 - 9.3 %) 0.6 L Eosinophils % (0 - 5 %) 0.3 Basophils % (0.0 - 2.0 %) 0 Absolute Granulocytes (1.4 - 6.5 /CUMM) 10.5 H Absolute Lymphocytes (1.2 - 3.4 /CUMM) 0.8 L Absolute Monocytes (0.10 - 0.60 /CUMM) 0.1 Absolute Eosinophils (0.0 - 0.7 /CUMM) 0 Absolute Basophils (0.0 - 0.2 /CUMM) 0 Toxicology Serum Alcohol (<10 MG/DL) < 10.0 Imaging/Other Studies: 02/04/18: EKG- SB @ 57, nl axis, CA .20, no ischemic change. 02/04/18: CT ABDOMEN AND PELVIS WITHOUT IV CONTRAST (*per [facility], limited study w/o IV cont)- Prominent inflammatory changes surrounding the pancreas with edematous appearance of the pancreas. This is suggestive of acute pancreatitis. No PD dilitation. Post CCKY with postop CBD 1.3 cm (chronic), no filling defect. Stable ectatic appearance of the left common iliac artery. Normal AP. No hernia. DJD. 02/04/18: US ABDOMEN COMPLETE- 1. Edematous pancreas with peripancreatic fluid, consistent with acute pancreatitis. 2. The pancreatic head and portions of the tail are not visualized. 3. Intra and extrahepatic ductal dilatation is seen. Common bile duct measuring up to 1 cm. Findings may at least in part be related to the patient's postcholecystectomy state with similar appearance seen on older CT scan from 07/11/2017, at which time, no evidence of acute pancreatitis was seen. In the visualized portions of the common bile duct on today's exam, no filling defect is seen. Distal most CBD is, however, not visualized. Close clinical correlation is requested. 4. Status post cholecystectomy. *Unfortunately, no MRCP available at [facility] on Tuesdays, prohibiting this on . Assessment/Plan Assessment/Recommendations: 52 y/o male, HTN, non-DM, renal stones post ESWL, smoker, hx GERD, anxiety, 02/27: CCKY for biliary colic (path: chronic cholecystitis, cholesterolosis, & cholelithiasis), hx diverticulosis coli, post 09/05/15: Pippa's procedure for sigmoid diverticulitis with phlegmon, f/b 12/27/15: reversal of colostomy, KRISTIN, reinforcement of midline fascia with mesh. This was followed by 08/14/16: open mesh repair of ventral incisional hernia, along with bilateral advancement rectus muscular fascial flap reconstruction, all per Dr. Cordon. He also has hx gout & had numerous orthopedic procedures, including right rotator cuff surgery, & left elbow ulnar surgery. *He had a chronic pain syndrome in the right flank. 03/15/06: EGD/colonoscopy (purged) gastric bxs unremarkable, H. pylori negative; bxs GEJ- benign inflammation, without Collier's esophagus. 09/06/14: Combined baseline upper endoscopy to the third portion of the duodenum with biopsies, plus follow up colonoscopy to the terminal ileum with biopsies (*done for GERD & chronic vague right-sided abdominal sx, requiring multiple ER visits & OV with the GI TUBER OPERATOR)- ? mild gastroparesis with bile cleared from proximal stomach, random bxs D2/D3- neg, random bx antrum- mild CAG, HP-neg, bx inflamed cardia- mild CFG , HP-neg, 2 cm HH, random bxs distal esophagus at 42 cm/Z line & at 39 cm- nl esophageal mucosa, neg EOE; mod L tics, focal sigmoid erythema from 25-30 cm in midst of tics-colonic mucosa with focal hyperplastic change & hemorrhage, random bxs of TI, right colon, left colon, & rectum- all neg. (The pt was rxd Nexium 40 mg daily then) He was due for f/u surveillance colonoscopy x 10 yrs (avg risk) = 08/2024. He was told if inc sx, to consider GES (which he never had), TFT with TSH, HgbA1C, celiac panel, etc. He was then seen in inpatient GI consultation 04/22/[address] Sprague for sigmoid diverticulitis, txd with antibiotics. He ultimately then had 09/05/15: Pippa 's procedure, followed by 12/27/15: reversal of colostomy/KRISTIN & 08/14/16: open mesh repair of ventral incisional hernia, as above. He was most recently seen in inpatient GI consultation by Dr. Jenae Ardon , for chronic progressive vague right-sided abdominal/right flank pain, which was somewhat positional in nature. This was felt to have a neuropathic quality. History, exam, and imaging did not show any acute intra-abdominal or retroperitoneal process. He had a minimally elevated lipase then which was felt to be nonspecific. There was no clinical evidence of pancreatitis. A radicular process vs. zoster was considered, & he was rxd ANGE & Valacyclovir. A Lyme titer then was negative, although he did get a 10 day course of Doxycyline. Since 1 PM on 02/03/18, the patient noted nausea, vomiting, diarrhea, and intermittent, severe intense, abdominal pain, described as "someone beating the hell out of my stomach". It was localized to the periumbilical region, radiating suprapubically and epigastrically. Initially, the pain was "3 out of 10", then became "10 out of 10" and constant in nature. He took Iliana-Montezuma, without relief. He arrived at the [facility] 02/04/18 at 12:14 a.m. for the above, at which point, he was HTN, with BP 218/97, P 57, R 22, T 97.5, O2 sat RA 100%. He was initially in tears from the pain. He was rxd IV Zofran, MS, IV NS switched to IV LR He had a loose bowel movement 1 day [employer], none since, with minimal constipation, but no obstipation,watery diarrhea, or tenesmus. The vomitus initially showed partially digested food, but then became clear, non-bloody, non-bilious. He had chronic GERD, for which he took Tums prn. He was not on longstanding PPI. He denied any odynophagia or dysphagia. He denied using any NSAIDS, thiazides, or Sulfa meds. He denied any hematemesis, melena, or BRBPR. He denied any EtOH, transfusions, IVDA, HIV, or hx viral hepatitis. He denied any definite jaundice, dark urine, light stools, pruritus, or confusion. He denied any fevers, chills, night sweats, CP, SOB, symptoms of UTI or URI. There was no abdominal trauma. His appetite was fair, since his multiple abdominal surgeries a few years ago. He denied any early satiety. His weight had been stable for the past 2 years, but he stated that he was previously obese & lost > 100 lbs a few years ago, in the midst of tx of his divericulitis. There is no FHx GI Ca, GI disease, inherited pancreatitis, or inherited liver disease. He was found to have newly elevated LFTs & elevated lipase (*see labs). 11/24/17: minimal lipase 401, with nl LFTs. 02/04/18: 0116- Admission labs-WBC 11.5 (92% gran/11 gran Ab), H/H 18/51.3, MCV 90, RDW 13.9, PLT 137, glucose 125, BUN/CR 16/1.1, GFR > 60, Na 141, K 4.0, HCO3 23, AG 14, Ca 10.1, amylase 3643, lipase > 10K, albumin 4.7, globulin 3.9, Tbil 2.3, DBil 1.4, alk phos 196, AST 266, ALT 219, troponin < 0.01; (no U/A or PT/ PTT). 02/04/18: 0246- *TG 101, [EtOH] < 10. 02/04/18: EKG- SB @ 57, nl axis, CA .20, no ischemic change. 02/04/18: CT ABDOMEN AND PELVIS WITHOUT IV CONTRAST (*per [facility], limited study w/o IV cont)- Prominent inflammatory changes surrounding the pancreas with edematous appearance of the pancreas. This is suggestive of acute pancreatitis. No PD dilitation. Post CCKY with postop CBD 1.3 cm (chronic), no filling defect. Stable ectatic appearance of the left common iliac artery. Normal AP. No hernia. DJD. 02/04/18: US ABDOMEN COMPLETE- 1. Edematous pancreas with peripancreatic fluid, consistent with acute pancreatitis. 2. The pancreatic head and portions of the tail are not visualized. 3. Intra and extrahepatic ductal dilatation is seen. Common bile duct measuring up to 1 cm. Findings may at least in part be related to the patient's postcholecystectomy state with similar appearance seen on older CT scan from 07/11/2017, at which time, no evidence of acute pancreatitis was seen. In the visualized portions of the common bile duct on today's exam, no filling defect is seen. Distal most CBD is, however, not visualized. Close clinical correlation is requested. 4. Status post cholecystectomy. *Unfortunately, no MRCP available at [facility] on Tuesdays, prohibiting this on . *Most likely, the patient has gallstone pancreatitis. His TG were normal. He did bump up his LFTs. *He had no signs or symptoms of cholangitis. The admission CT was somewhat limited without IV contrast. Even so, it showed pancreatic inflammation. Subsequent admission ultrasound showed chronic mild nonspecific dilated CBD & mildly dilated IHD, but apparently, these findings are chronic, post CCKY. However, the elevated LFTs are new. Unfortunately, MRCP is not available at [facility] on Tuesdays, & therefore, could not be obtained on . He appeared somewhat hemoconcentrated on admission, as did his HCT 51.3. *He had 1 grave sign by Kala criteria on admission, namely elevated AST, although no LDH was sent. *He had 0 grave signs by BiSAP criteria on admission, but no CXR was obtained to rule out pleural effusions. (Limited views of the lung bases on CT AP were clear). He denied EtOH. He is a 30 pk yr cigarette smoker, which is a risk factor for pancreatitis. *SUGGEST: NPO for now. IV Lactated Ringers @ 200cc/hr. Strict I/O's. Serial CBC, *LFTs, lytes, BUN/Cr, GFR. *Watch for hemoconcentration (i.e.- rising Hgb or BUN) despite IVF, which would be a poor prognostic sign. IV Zofran. Analgesics. IV Protonix 40 mg daily, for GERD. *Check PT with INR. *Give empiric Vit K 10 mg sc x 1 dose (in case papillotomy is needed). At present, no need for antibiotics to cover the RUQ, as there are no signs or sx of cholangitis. *Check CRP in a.m. for prognostic purposes. *Add LDH to admit labs. *CXR (r/o pleural effusion). D/ C cigarettes. DVT prophylaxis. *Please arrange for MRCP 1st thing on 02/05/18. * Depending on the MRCP results, repeat LFTs, & clinical course, the patient may need ERCP. On the other hand, it is possible he could have passed a stone. * Please call GI LISA, if the patient develops signs or sx of cholangitis, namely hypotension, tachycardia, confusion, temp spikes, etc. (As an aside, he is due for f/u surveillance colonoscopy in 08/2024). *The above was discussed with the patient's RN, who will convey my notes to the medical housestaff. Further GI recommendations to follow, depending on clinical course. Problem List: 1. Gallstone pancreatitis 2. Abdominal pain 3. Nausea & vomiting 4. Elevated LFTs 5. GERD (gastroesophageal reflux disease) 6. Diverticulosis of colon 7. History of colostomy reversal 8. History of cholecystectomy Copies To: Bravo QUINTERO,Domingo Olson; Yosvany QUINTERO,Rosalio Consult Acknowledgment - Thank you for your consult request.
[2018-02-04 21:17] VITALS: BP 126/80
[2018-02-05 06:33] VITALS: BP 134/91
[2018-02-05 07:43] LABS: ABSOLUTE BASOPHIL COUNT 0 /CUMM (0.0-0.2); ABSOLUTE EOSINOPHIL COUNT 0 /CUMM (0.0-0.7); ABSOLUTE GRANULOCYTE CT 14.4 /CUMM (1.4-6.5); ABSOLUTE LYMPH COUNT 0.7 /CUMM (1.2-3.4); ABSOLUTE MONOCYTE COUNT 0.6 /CUMM (0.10-0.60); EOSINOPHIL % 0.1 % (0-5); WHITE BLOOD CELL COUNT 15.7 /CUMM (4.8-10.8)
--- NOTE | 2018-02-05 07:56 | PN- Gastroenterology ---
Assessment/Plan GI Assessment/Recommendations: 52 y/o male, HTN, non-DM, renal stones post ESWL, smoker, hx GERD, anxiety, 02/27: CCKY for biliary colic (path: chronic cholecystitis, cholesterolosis, & cholelithiasis), hx diverticulosis coli, post 09/05/15: Pippa's procedure for sigmoid diverticulitis with phlegmon, f/b 12/27/15: reversal of colostomy, KRISTIN, reinforcement of midline fascia with mesh. This was followed by 08/14/16: open mesh repair of ventral incisional hernia, along with bilateral advancement rectus muscular fascial flap reconstruction, all per Dr. Cordon. He also has hx gout & had numerous orthopedic procedures, including right rotator cuff surgery, & left elbow ulnar surgery. *He had a chronic pain syndrome in the right flank. 03/15/06: EGD/colonoscopy (purged) gastric bxs unremarkable, H. pylori negative; bxs GEJ- benign inflammation, without Collier's esophagus. 09/06/14: Combined baseline upper endoscopy to the third portion of the duodenum with biopsies, plus follow up colonoscopy to the terminal ileum with biopsies (*done for GERD & chronic vague right-sided abdominal sx, requiring multiple ER visits & OV with the GI MARKET GARDENER)- ? mild gastroparesis with bile cleared from proximal stomach, random bxs D2/D3- neg, random bx antrum- mild CAG, HP-neg, bx inflamed cardia- mild CFG , HP-neg, 2 cm HH, random bxs distal esophagus at 42 cm/Z line & at 39 cm- nl esophageal mucosa, neg EOE; mod L tics, focal sigmoid erythema from 25-30 cm in midst of tics-colonic mucosa with focal hyperplastic change & hemorrhage, random bxs of TI, right colon, left colon, & rectum- all neg. (The pt was rxd Nexium 40 mg daily then) He was due for f/u surveillance colonoscopy x 10 yrs (avg risk) = 08/2024. He was told if inc sx, to consider GES (which he never had), TFT with TSH, HgbA1C, celiac panel, etc. He was then seen in inpatient GI consultation 04/22/[address] Sprague for sigmoid diverticulitis, txd with antibiotics. He ultimately then had 09/05/15: Pippa 's procedure, followed by 12/27/15: reversal of colostomy/KRISTIN & 08/14/16: open mesh repair of ventral incisional hernia, as above. He was most recently seen in inpatient GI consultation by Dr. Jenae Ardon , for chronic progressive vague right-sided abdominal/right flank pain, which was somewhat positional in nature. This was felt to have a neuropathic quality. History, exam, and imaging did not show any acute intra-abdominal or retroperitoneal process. He had a minimally elevated lipase then which was felt to be nonspecific. There was no clinical evidence of pancreatitis. A radicular process vs. zoster was considered, & he was rxd ANGE & Valacyclovir. A Lyme titer then was negative, although he did get a 10 day course of Doxycyline. Since 1 PM on 02/03/18, the patient noted nausea, vomiting, diarrhea, and intermittent, severe intense, abdominal pain, described as "someone beating the hell out of my stomach". It was localized to the periumbilical region, radiating suprapubically and epigastrically. Initially, the pain was "3 out of 10", then became "10 out of 10" and constant in nature. He took Iliana-[place], without relief. He arrived at the [facility] 02/04/18 at 12:14 a.m. for the above, at which point, he was HTN, with BP 218/97, P 57, R 22, T 97.5, O2 sat RA 100%. He was initially in tears from the pain. He was rxd IV Zofran, MS, IV NS switched to IV LR He had a loose bowel movement 1 day [employer], none since, with minimal constipation, but no obstipation,watery diarrhea, or tenesmus. The vomitus initially showed partially digested food, but then became clear, non-bloody, non-bilious. He had chronic GERD, for which he took Tums prn. He was not on longstanding PPI. He denied any odynophagia or dysphagia. He denied using any NSAIDS, thiazides, or Sulfa meds. He denied any hematemesis, melena, or BRBPR. He denied any EtOH, transfusions, IVDA, HIV, or hx viral hepatitis. He denied any definite jaundice, dark urine, light stools, pruritus, or confusion. He denied any fevers, chills, night sweats, CP, SOB, symptoms of UTI or URI. There was no abdominal trauma. His appetite was fair, since his multiple abdominal surgeries a few years ago. He denied any early satiety. His weight had been stable for the past 2 years, but he stated that he was previously obese & lost > 100 lbs a few years ago, in the midst of tx of his divericulitis. There is no FHx GI Ca, GI disease, inherited pancreatitis, or inherited liver disease. He was found to have newly elevated LFTs & elevated lipase (*see labs). 11/24/17: minimal lipase 401, with nl LFTs. 02/04/18: 0116- Admission labs-WBC 11.5 (92% gran/11 gran Ab), H/H 18/51.3, MCV 90, RDW 13.9, PLT 137, glucose 125, BUN/CR 16/1.1, GFR > 60, Na 141, K 4.0, HCO3 23, AG 14, Ca 10.1, amylase 3643, lipase > 10K, albumin 4.7, globulin 3.9, Tbil 2.3, DBil 1.4, alk phos 196, AST 266, ALT 219, troponin < 0.01; (no U/A or PT/ PTT). 02/04/18: 0246- *TG 101, [EtOH] < 10. 02/04/18: EKG- SB @ 57, nl axis, MO .20, no ischemic change. 02/04/18: CT ABDOMEN AND PELVIS WITHOUT IV CONTRAST (*per Krishna CARRENO, limited study w/o IV cont)- Prominent inflammatory changes surrounding the pancreas with edematous appearance of the pancreas. This is suggestive of acute pancreatitis. No PD dilitation. Post CCKY with postop CBD 1.3 cm (chronic), no filling defect. Stable ectatic appearance of the left common iliac artery. Normal AP. No hernia. DJD. 02/04/18: US ABDOMEN COMPLETE- 1. Edematous pancreas with peripancreatic fluid, consistent with acute pancreatitis. 2. The pancreatic head and portions of the tail are not visualized. 3. Intra and extrahepatic ductal dilatation is seen. Common bile duct measuring up to 1 cm. Findings may at least in part be related to the patient's postcholecystectomy state with similar appearance seen on older CT scan from 07/11/2017, at which time, no evidence of acute pancreatitis was seen. In the visualized portions of the common bile duct on today's exam, no filling defect is seen. Distal most CBD is, however, not visualized. Close clinical correlation is requested. 4. Status post cholecystectomy. *Unfortunately, no MRCP available at [facility] on Tuesdays, prohibiting this on . *Most likely, the patient has gallstone pancreatitis. His TG were normal. He did bump up his LFTs. *He had no signs or symptoms of cholangitis. *The admission CT was somewhat limited without IV contrast. Even so, it showed pancreatic inflammation. Subsequent admission ultrasound showed chronic mild nonspecific dilated CBD & mildly dilated IHD, but apparently, these findings are chronic, post CCKY. However, the elevated LFTs are new. Unfortunately, MRCP is not available at [facility] on Tuesdays, & therefore, could not be obtained on . He appeared somewhat hemoconcentrated on admission, as did his HCT 51.3. *He had 1 grave sign by Kala criteria on admission, namely elevated AST, although no LDH was sent. *He had 0 grave signs by BiSAP criteria on admission, but no CXR was obtained to rule out pleural effusions. (Limited views of the lung bases on CT AP were clear). He denied EtOH. He is a 30 pk yr cigarette smoker, which is a risk factor for pancreatitis. 02/05/18: Labs- *CBC, etc.- pending (*partial- BUN/Cr 22/0.8, GFR 60, Na 135, K 3.4, HCO3 26, AG 7, albumin 3.4, globulin 3.0, TBil 1.4, DBil 0.5, alk phos 117, AST 40, ALT 100, PT 15.6, INR 1.43) *As of 02/05/18, the patient remained hemodynamically stable (mildly HTN 134/91) & afebrile, with O2 sat RA 97%. He remained NPO, *awaiting MRCP for presumed gallstone pancreatitis. *He had no signs or sx of cholangitis. Requiring IV narcotics. His abdominal pain was "out of 10". The abdominal pain was fairly diffuse. He denied any nausea, vomiting, CP, SOB, or confusion. There were no fevers or chills. He denied any jaundice. He was slightly anxious. Empiric Vit K 10 mg sc x 1 was given 02/04/18, in anticipation of possible papillotomy. IV Protonix 40 mg daily was rxd. The fact that the patient's LFTs were slowly declining was reassuring. Await MRCP. *SUGGEST: NPO for now. IV Lactated Ringers @ 250cc/hr. Strict I/O's. Serial CBC, *LFTs, lytes, BUN/Cr, GFR. *Watch for hemoconcentration (i.e.- rising Hgb or BUN) despite IVF, which would be a poor prognostic sign. *Replete K+. IV Zofran. Analgesics. IV Protonix 40 mg daily, for GERD.*Give empiric Vit K 10 mg sc x 1 dose (in case papillotomy is needed-> done 02/04/18). At present, no need for antibiotics to cover the RUQ, as there are no signs or sx of cholangitis. Check CRP in a.m. for prognostic purposes. Add LDH to ADMIT labs. CXR (r/o pleural effusion). D/C cigarettes. DVT prophylaxis. *Please arrange for MRCP 1st thing on 02/05/18. *Depending on the MRCP results, repeat LFTs, & clinical course, the patient may need ERCP. On the other hand, it is possible he could have passed a stone. *Please call GI LISA, if the patient develops signs or sx of cholangitis, namely hypotension, tachycardia, confusion, temp spikes, etc. (As an aside, he is due for f/u surveillance colonoscopy in 08/2024). *The above was previously discussed with the patient's RN, who conveyed my notes to the medical housestaff. Further GI recommendations to follow, depending on clinical course. Problem List: 1. Gallstone pancreatitis 2. Abdominal pain 3. Nausea & vomiting 4. Elevated LFTs 5. GERD (gastroesophageal reflux disease) 6. Diverticulosis of colon 7. History of colostomy reversal 8. History of cholecystectomy Subjective Subjective: 02/05/18: Labs- *CBC, INR, etc.- pending (*partial- BUN/Cr 22/0.8, GFR 60, Na 135, K 3.4, HCO3 26, AG 7, albumin 3.4, globulin 3.0, TBil 1.4, DBil 0.5, alk phos 117, AST 40, ALT 100, PT 15.6, INR 1.43)) *As of 02/05/18, the patient remained hemodynamically stable (mildly HTN 134/91) & afebrile, with O2 sat RA 97%. He remained NPO, *awaiting MRCP for presumed gallstone pancreatitis. *He had no signs or sx of cholangitis. Requiring IV narcotics. His abdominal pain was "out of 10". The abdominal pain was fairly diffuse. He denied any nausea, vomiting, CP, SOB, or confusion. There were no fevers or chills. He denied any jaundice. He was slightly anxious. Empiric Vit K 10 mg sc x 1 was given 02/04/18, in anticipation of possible papillotomy. IV Protonix 40 mg daily was rxd. Review of Systems: Full 14 point ROS otherwise noncontributory, & as above. Review of Systems Constitutional: Denies: chills, diaphoresis, fever, malaise, weakness, unexplained weight loss. EENTM: Denies: blurred vision, double vision, visual changes, eye pain, eye drainage, eye tearing, icterus, ear discharge, ear pain, ear redness, hearing changes, nasal congestion, epistaxis, nasal pain, throat pain, throat swelling, mouth pain, tooth pain. Cardiovascular: Denies: chest pain, edema, orthopena, palpitations, peripheral edema, syncope. Respiratory: Denies: cough, hemoptysis, orthopnea, short of breath, sputum production, stridor, wheezing. GI: Reports: abdominal pain; nausea & vomiting-> improved. Denies: bloating, constipation, diarrhea, distention, bowel incontinence, melena , bloody stool, changes in stool, steatorrhea. Genitourinary: Denies: discharge, dysuria, frequency, hematuria, hesitation, nocturia, pain, urgency. Musculoskeletal: Denies: back pain, gout, joint pain, joint swelling, muscle pain, muscle stiffness, neck pain. Skin: Denies: cysts, change in skin color, change in hair/nails, dryness, erythema, jaundice, lesions, lymphangitis, lumps, moles, rash. Neurological/Psychological: Reports: anxiety, emotional problems. Denies: ataxia, cognitive dysfunction, confusion, depressed, dementia, headache, numbness, paresthesia, pre-existing deficit, petit mal seizures, tingling, tremors, tonic-clonic seizures, unable to move lower ext, unable to move upper ext, weakness, other. Hematologic/Endocrine: Denies: bruising, bleeding, polyuria, polydipsia. Immunologic/Allergic: Denies: splenectomy, HIV/AIDS, lymphadenopathy. All Other Systems: Reviewed and Negative Objective Vital Signs and I&Os Vital Signs Date Time Temp Pulse Resp B/P B/P Pulse O2 O2 Flow FiO2 Mean Ox Delivery Rate 02/05 0633 98.9 80 20 134/91 97 Room Air 02/04 2117 98.2 75 18 126/80 94 02/04 1642 98.0 73 20 130/76 96 02/04 1440 97.9 65 20 155/84 97 02/04 1116 97.8 58 20 153/86 97 Room Air Intake & Output 02/05 1600 02/05 0400 02/04 1600 02/04 0400 02/03 1600 02/03 0400 Intake Total 6523 211 2965 1000 Output Total 800 500 Balance 800 490 498 4484 Intake, IV 5074 351 1236 1000 Output, Urine 800 500 Patient 210 lb Weight Weight Reported by Patient Measurement Method Physical Exam: Well-developed, well-nourished male in mild to moderate distress, non-toxic appearing. Slightly anxious. Sclera minimally icteric. Conjunctiva pink. Oropharynx clear. Slightly dry mucus membranes. No oral thrush. No aphthous ulcers. There is no adenopathy, thyromegaly, or JVD. No peripheral stigmata of inflammatory bowel disease or chronic liver disease on exam. No spiders on the anterior chest wall. No gynecomastia. No CVA tenderness. No spine tenderness. Lungs: clear to A&P. No wheezing, rales, or rhonchi. Heart exam: regular rate rhythm, S1 and S2, without any murmur. Abdominal exam: normal bowel sounds, soft belly, epigastric > RUQ/LUQ tenderness on palpation, without guarding or rebound. No mass. No organomegaly. No fluid shift. No epigastric bruit. No pulsatile mass. Multiple scars. Digital rectal exam: deferred by patient. Extremities: without C, C, or E. No rash. Mild DJD. No palmar erythema. No Dupuytren's contractures. No palpable cords. Distal pulses 2+ bilaterally. DTRs 2+ bilaterally. Right handed. CN II-XII intact. Alert and oriented x 3. No tremor. No asterixis. Current Medications: Current Medications Sig/Oz Start time Last Medication Dose Route Stop Time Status Admin Heparin Sodium 0 .STK-MED ONE 02/04 1359 DC (Porcine) .ROUTE Heparin Sodium 5,000 UNIT Q8 02/04 0600 02/05 (Porcine) SC 0528 Hydromorphone HCl 0.8 MG Q3P PRN 02/04 1845 02/05 IV 0528 Hydromorphone HCl 0 .STK-MED ONE 02/04 1356 DC .ROUTE Hydromorphone HCl 1 MG ONCE ONE 02/04 1345 DC 02/04 IV 02/04 1346 1400 Lactated Ringer's 1,000 ML Q6H 02/04 2215 AC 02/05 IV 02/05 0914 0527 Lactated Ringer's 1,000 ML Q6H 02/04 0300 DC 02/04 IV 02/04 1459 1125 Morphine Sulfate 0 .STK-MED ONE 02/04 0924 DC .ROUTE Morphine Sulfate 4 MG Q4P PRN 02/04 0330 02/05 IV 0738 Nicotine 7 MG DAILY 02/04 0900 02/04 TOP 0940 Ondansetron HCl 0 .STK-MED ONE 02/04 0924 DC .ROUTE Ondansetron HCl 4 MG Q6P PRN 02/04 0245 AC 02/04 IV 1858 Oxycodone HCl 0 .STK-MED ONE 02/04 1132 DC PO Oxycodone HCl 5 MG Q6P PRN 02/04 0800 02/05 PO 0002 Pantoprazole Sodium 40 MG DAILY 02/05 09 IV Phytonadione 10 MG ONCE ONE 02/04 2330 DC 02/05 SC 02/04 2331 0141 Results Pertinent Lab Results: Laboratory Tests 02/05 02/04 02/04 0715 0317 0246 Chemistry Sodium (137 - 145 mmol/L) 135 L Potassium (3.5 - 5.1 mmol/L) 3.4 L Chloride (98 - 107 mmol/L) 102 Carbon Dioxide (22 - 30 mmol/L) 26 Anion Gap (5 - 16) 7 BUN (9 - 20 mg/dL) 22 H Creatinine (0.7 - 1.2 mg/dL) 0.8 Estimated GFR (>60 ml/min) > 60 BUN/Creatinine Ratio (7 - 25 %) 27.5 H Lactic Acid Cancelled Total Bilirubin (0.2 - 1.3 mg/dL) 1.4 H Direct Bilirubin (< 0.4 mg/dL) 0.5 H AST (17 - 59 U/L) 40 ALT (21 - 72 U/L) 100 H Alkaline Phosphatase (< 127 U/L) 117 Lactate Dehydrogenase (313 - 618 U/L) 799 H Total Protein (6.3 - 8.2 g/dL) 6.4 Albumin (3.5 - 5.0 g/dL) 3.4 L Triglycerides (<150 mg/dL) 101 Coagulation PT (9.4 - 12.5 SEC) 15.6 H INR (0.90 - 1.17) 1.43 H Hematology CBC w Diff Pending WBC Pending RBC Pending Hgb Pending Hct Pending MCV Pending MCH Pending MCHC Pending RDW Pending Plt Count Pending MPV Pending Gran % Pending Lymphocytes % Pending Monocytes % Pending Eosinophils % Pending Basophils % Pending Absolute Granulocytes Pending Absolute Lymphocytes Pending Absolute Monocytes Pending Absolute Eosinophils Pending Absolute Basophils Pending Toxicology Serum Alcohol (<10 MG/DL) < 10.0 02/04 0116 Chemistry Sodium (137 - 145 mmol/L) 141 Potassium (3.5 - 5.1 mmol/L) 4.0 Chloride (98 - 107 mmol/L) 105 Carbon Dioxide (22 - 30 mmol/L) 23 Anion Gap (5 - 16) 14 BUN (9 - 20 mg/dL) 16 Creatinine (0.7 - 1.2 mg/dL) 1.1 Estimated GFR (>60 ml/min) > 60 BUN/Creatinine Ratio (7 - 25 %) 14.5 Glucose (65 - 99 mg/dL) 125 H Calcium (8.4 - 10.2 mg/dL) 10.1 Total Bilirubin (0.2 - 1.3 mg/dL) 2.3 H Direct Bilirubin (< 0.4 mg/dL) 1.4 H AST (17 - 59 U/L) 266 H ALT (21 - 72 U/L) 219 H Alkaline Phosphatase (< 127 U/L) 196 H Troponin I (<0.11 ng/ml) < 0.01 Total Protein (6.3 - 8.2 g/dL) 8.6 H Albumin (3.5 - 5.0 g/dL) 4.7 Amylase (30 - 110 U/L) 3643 H Lipase (23 - 300 U/L) > 82740 H Hematology CBC w Diff NO MAN DIFF REQ WBC (4.8 - 10.8 /CUMM) 11.5 H RBC (4.70 - 6.10 /CUMM) 5.70 Hgb (14.0 - 18.0 G/DL) 18.0 Hct (42 - 52 %) 51.3 MCV (80.0 - 94.0 FL) 90.0 MCH (27.0 - 31.0 PG) 31.6 H MCHC (33.0 - 37.0 G/DL) 35.1 RDW (11.5 - 14.5 %) 13.9 Plt Count (130 - 400 /CUMM) 137 MPV (7.4 - 10.4 FL) 8.0 Gran % (42.2 - 75.2 %) 91.8 H Lymphocytes % (20.5 - 51.1 %) 7.3 L Monocytes % (1.7 - 9.3 %) 0.6 L Eosinophils % (0 - 5 %) 0.3 Basophils % (0.0 - 2.0 %) 0 Absolute Granulocytes (1.4 - 6.5 /CUMM) 10.5 H Absolute Lymphocytes (1.2 - 3.4 /CUMM) 0.8 L Absolute Monocytes (0.10 - 0.60 /CUMM) 0.1 Absolute Eosinophils (0.0 - 0.7 /CUMM) 0 Absolute Basophils (0.0 - 0.2 /CUMM) 0 Imaging/Other Studies: 02/04/18: EKG- SB @ 57, nl axis, MO .20, no ischemic change. 02/04/18: CT ABDOMEN AND PELVIS WITHOUT IV CONTRAST (*per Krishna ER, limited study w/o IV cont)- Prominent inflammatory changes surrounding the pancreas with edematous appearance of the pancreas. This is suggestive of acute pancreatitis. No PD dilitation. Post CCKY with postop CBD 1.3 cm (chronic), no filling defect. Stable ectatic appearance of the left common iliac artery. Normal AP. No hernia. DJD. 02/04/18: US ABDOMEN COMPLETE- 1. Edematous pancreas with peripancreatic fluid, consistent with acute pancreatitis. 2. The pancreatic head and portions of the tail are not visualized. 3. Intra and extrahepatic ductal dilatation is seen. Common bile duct measuring up to 1 cm. Findings may at least in part be related to the patient's postcholecystectomy state with similar appearance seen on older CT scan from 07/11/2017, at which time, no evidence of acute pancreatitis was seen. In the visualized portions of the common bile duct on today's exam, no filling defect is seen. Distal most CBD is, however, not visualized. Close clinical correlation is requested. 4. Status post cholecystectomy. *Unfortunately, no MRCP available at [facility] on Tuesdays, prohibiting this on .
[2018-02-05 08:02] LABS: BASOPHIL % 0.2 % (0.0-2.0); HEMATOCRIT 50.9 % (42-52); MEAN CORPUSCULAR HGB 30.9 PG (27.0-31.0); MEAN CORPUSCULAR VOLUME 90.9 FL (80.0-94.0); MEAN PLATELET VOLUME 8.4 FL (7.4-10.4); RBC DISTRIBUTION WIDTH 14.3 % (11.5-14.5)
[2018-02-05 08:10] LABS: PLATELET COUNT 215 /CUMM (130-400)
[2018-02-05 08:16] LABS: PT 15.6 SEC (9.4-12.5)
--- NOTE | 2018-02-05 08:28 | PN- Housestaff ---
Subjective Follow-up For: Pancreatitis Subjective: Patient seen and examined. He states that he has continued pain rates it at a 7 out of 10. He has just been given his pain medications but his pain was at a 10 /10 earlier today. He is currently on morphine and Dilaudid. The patient's vitals are stable overnight. Other than abdominal pain that is worse on palpation, he has no other complaints. The patient is currently n.p.o. receiving lactated Ringer's. Review of Systems Constitutional: Reports: no symptoms. Cardiovascular: Reports: no symptoms. Respiratory: Reports: no symptoms. Gastrointestinal: Reports: abdominal pain. Musculoskeletal: Reports: no symptoms. Skin: Reports: no symptoms. Neurological/Psychological: Reports: no symptoms. Objective Last 24 Hrs of Vital Signs/I&O Vital Signs Date Time Temp Pulse Resp B/P B/P Pulse O2 O2 Flow FiO2 Mean Ox Delivery Rate 02/05 1421 98.2 84 20 128/90 95 Room Air 02/05 0633 98.9 80 20 134/91 97 Room Air 02/04 2117 98.2 75 18 126/80 94 02/04 1642 98.0 73 20 130/76 96 Intake & Output 02/05 1600 02/05 0800 02/05 0000 Intake Total 1600 450 Output Total 800 Balance 800 450 Intake, IV 1600 450 Output, Urine 800 Patient 211 lb 210 lb Weight Weight Reported by Patient Measurement Method Physical Exam General Appearance: Alert, Oriented X3, Cooperative, Mild Distress Skin: No Rashes, No Breakdown Skin Temp/Moisture Exam: Warm/Dry Sepsis Skin Exam (color): Normal for Ethnicity HEENT: Atraumatic, PERRLA, EOMI, Mucous Membr. moist/pink Cardiovascular: Regular Rate, Normal S1, Normal S2, No Murmurs Lungs: Clear to Auscultation, Normal Air Movement Abdomen: Normal Bowel Sounds, Soft, No Hepatospenomegaly, No Masses Neurological: Normal Speech Current Medications: Current Medications Sig/Oz Start time Last Medication Dose Route Stop Time Status Admin Heparin Sodium 5,000 UNIT Q8 02/04 0600 AC 02/05 (Porcine) SC 1349 Hydromorphone HCl 0.8 MG Q3P PRN 02/04 1845 AC 02/05 IV 1433 Lactated Ringer's 1,000 ML Q6H 02/05 1100 AC 02/05 IV 08/15 2059 1230 Lactated Ringer's 1,000 ML Q6H 02/04 2215 DC 02/05 IV 02/05 0914 0527 Lactated Ringer's 1,000 ML Q6H 02/04 0300 DC 02/04 IV 02/04 1459 1125 Morphine Sulfate 4 MG Q4P PRN 02/04 0330 AC 02/05 IV 1229 Nicotine 7 MG DAILY 02/04 0900 AC 02/05 TOP 0824 Ondansetron HCl 4 MG Q6P PRN 02/04 0245 AC 02/04 IV 1858 Oxycodone HCl 5 MG Q6P PRN 02/04 0800 AC 02/05 PO 0002 Pantoprazole Sodium 40 MG DAILY 02/05 0900 AC 02/05 IV 0824 Phytonadione 10 MG ONCE ONE 02/04 2330 DC 02/05 SC 02/04 2331 0141 Potassium Chloride 40 MEQ ONCE ONE 02/05 0845 DC 02/05 PO 02/05 0846 1229 Last 24 Hrs of Lab/Steven Results Last 24 Hrs of Labs/Mics: Laboratory Tests 02/05/18 0715: Anion Gap 7, Estimated GFR > 60, BUN/Creatinine Ratio 27.5 H, Total Bilirubin 1.4 H, Direct Bilirubin 0.5 H, AST 40, ALT 100 H, Alkaline Phosphatase 117, C -Reactive Prot, Quant > 9.0 H, Total Protein 6.4, Albumin 3.4 L, PT 15.6 H, INR 1.43 H, CBC w Diff NO MAN DIFF REQ, RBC 5.60, MCV 90.9, MCH 30.9, MCHC 34.0 , RDW 14.3, MPV 8.4, Gran % 91.3 H, Lymphocytes % 4.7 L, Monocytes % 3.7, Eosinophils % 0.1, Basophils % 0.2, Absolute Granulocytes 14.4 H, Absolute Lymphocytes 0.7 L, Absolute Monocytes 0.6, Absolute Eosinophils 0, Absolute Basophils 0 Assessment/Plan Assessment: Mr. Bynum is a 52yo M w/ PMH of diverticulitis, kidney stones s/p lithotripsy, gallstones s/p cholecystectomy, s/p Pippa procedure w/ temporary colostomy followed by revision in 2015, s/p hernia repair, reversible ischemia on nuclear stress test status post cardiac cath recently in 2014 presented to [facility] w/ N/V/D/severe intermittent ab pain since 1pm of 02/03/2018, endorseed loose BM x 1 on 02/03 but none since, w/ intermittent non-bloody vomiting, mostly foods. During our clinical interaction, patient denied recent travel/sick contacts, fever/lightheadedness/diaphoresis/night sweat/weight change/cough/SOB/Chest Pain /urinary abnormality, or other skin/musculoskeletal/neurological/mood disorders, or dietary/appetite change. -Smoking: active smoker 30ppy -Alcohol: denied -Drugs: denied On admission, Vitals: stable afebrile, HTN 218/97 Physical exam as above. Pertinent findings include acute distress 2/2 pain w/ HTN on monitor, and epigastric and LLQ ab pain on palpation, decreased BS. Limited exam due to pain. -CBC: mild leukocytosis 11.5, otherwise WNL -CMP: WNl except Amylase/Lipase 3643/>43175, Tb/DB 2.4/1.4, AST/ALT 266/219, ALKP 196, trop -ve x [address]: Prominent inflammatory changes surrounding the pancreas with edematous appearance of the pancreas. This is suggestive of acute pancreatitis. -Stable ectatic appearance of the left common iliac artery. Abdominal ultrasound: 1. Edematous pancreas with peripancreatic fluid, consistent with acute pancreatitis. 2. The pancreatic head and portions of the tail are not visualized. 3. Intra and extrahepatic ductal dilatation is seen. Common bile duct measuring up to 1 cm. Findings may at least in part be related to the patient's postcholecystectomy state with similar appearance seen on older CT scan from 07/11/2017, at which time, no evidence of acute pancreatitis was seen. In the visualized portions of the common bile duct on today's exam, no filling defect is seen. Distal most CBD is, however, not visualized. Close clinical correlation is requested. 4. Status post cholecystectomy. -EKG: NSR w/o significant ST-T abnormalities, unchanged from previous. -Last Echo: 2011 by [facility], stage 2 diastolic dysfunction -Interventions in ER: NS bolus x 1, Morphine 6mg IV x 2, ZOfran IV x 1 Problem list/Assessment/Hospital Course: #Acute pancreatitis, unclear etiology currently #Transaminitis/Elev AlkP, likely reactive #R/o Biliary causes (choledocolithiasis, etc) #Active smoker #PMHx as above -Patient admitted to general medicine floors for evaluation and treatment -Vitals per protocol, monitor I&O per protocol. -Appreciate GI consult, increase lactated Ringer's rate to 250 cc/h. LDH was done as per GI and was 799, CRP sent for prognostic purposes. Chest x-ray pending to evaluate for pleural effusion. We will continue to watch for hemoconcentration with a rising hemoglobin or BUN which would be a poor prognostic sign. We will continue IV Protonix 40 mg daily and Zofran IV. -Keep NPO for MRCP today. Depending on results, the patient may need an ERCP. Consider starting patient on clear fluids as tolerated post procedure. Patient' s white blood cell count increased from 11.5-15.7 overnight. He is currently not on any antibiotics as there is no evidence of cholecystitis. -Continue home meds -Repleted potassium today as his potassium level topped from 4-3.4 overnight -Nicotine patch PRN. -Trend BEP/LFTs -Pain per pathway w/ IV Morphine/Dilaudid PRN DVT prophylaxis Lovenox + ALPS NPO Full Code Problem List: 1. Pancreatitis Pain Ratin Pain Location: Abdomen Pain Goal: Pain 4 or less Pain Plan: Morphine and Dilaudid Tomorrow's Labs & Rationales: Pancreatic labs and LFTs, BEP
[2018-02-05 08:42] LABS: GRANULOCYTE % 91.3 % (42.2-75.2)
--- NOTE | 2018-02-05 10:18 | PN- Att Addend ---
Attending Addendum Attending Brief Note Patient taking a shower. States he still in a lot of pain. His vital signs are stable has no fever. Last white count 15,700 BUN 22, potassium 3.4. Lipase is more than 10,000 and amylase 3643 yesterday. Physical exam is about the same. Patient will be going for an MRI this morning. Continue recommendations from GI. Maybe after the MRI start some clear liquids. Please follow-up pancreatic functions and maybe replace potassium, 24 TOTALS 02/05 0000 02/04 0000 Intake Total 2450 Output Total 500 Balance 1950 Intake, IV 2450 Output, Urine 500 Patient 210 lb Weight Weight Reported by Patient Measurement Method Current Medications Sig/Oz Start time Last Medication Dose Route Stop Time Status Admin Heparin Sodium 0 .STK-MED ONE 02/04 1359 DC (Porcine) .ROUTE Heparin Sodium 5,000 UNIT Q8 02/04 0600 AC 02/05 (Porcine) SC 0528 Hydromorphone HCl 0.8 MG Q3P PRN 02/04 1845 AC 02/05 IV 0824 Hydromorphone HCl 0 .STK-MED ONE 02/04 1356 DC .ROUTE Hydromorphone HCl 1 MG ONCE ONE 02/04 1345 DC 02/04 IV 02/04 1346 1400 Lactated Ringer's 1,000 ML Q6H 02/04 2215 DC 02/05 IV 02/05 0914 0527 Lactated Ringer's 1,000 ML Q6H 02/04 0300 DC 02/04 IV 02/04 1459 1125 Morphine Sulfate 4 MG Q4P PRN 02/04 0330 AC 02/05 IV 0738 Nicotine 7 MG DAILY 02/04 0900 AC 02/05 TOP 0824 Ondansetron HCl 4 MG Q6P PRN 02/04 0245 AC 02/04 IV 1858 Oxycodone HCl 0 .STK-MED ONE 02/04 1132 DC PO Oxycodone HCl 5 MG Q6P PRN 02/04 0800 AC 02/05 PO 0002 Pantoprazole Sodium 40 MG DAILY 02/05 0900 AC 02/05 IV 0824 Phytonadione 10 MG ONCE ONE 02/04 2330 DC 02/05 SC 02/04 2331 0141 Potassium Chloride 40 MEQ ONCE ONE 02/05 0845 DC PO 02/05 0846 Laboratory Tests 02/05/18 0715: Anion Gap 7, Estimated GFR > 60, BUN/Creatinine Ratio 27.5 H, Total Bilirubin 1.4 H, Direct Bilirubin 0.5 H, AST 40, ALT 100 H, Alkaline Phosphatase 117, Total Protein 6.4, Albumin 3.4 L, PT 15.6 H, INR 1.43 H, CBC w Diff NO MAN DIFF REQ, RBC 5.60, MCV 90.9, MCH 30.9, MCHC 34.0, RDW 14.3, MPV 8.4, Gran % 91.3 H, Lymphocytes % 4.7 L, Monocytes % 3.7, Eosinophils % 0.1, Basophils % 0.2, Absolute Granulocytes 14.4 H, Absolute Lymphocytes 0.7 L, Absolute Monocytes 0.6, Absolute Eosinophils 0, Absolute Basophils 0 02/04/18 0317: Lactic Acid Cancelled 02/04/18 0246: Lactate Dehydrogenase 799 H, Triglycerides 101, Serum Alcohol < 10.0 02/04/18 0116: Anion Gap 14, Estimated GFR > 60, BUN/Creatinine Ratio 14.5, Glucose 125 H, Calcium 10.1, Total Bilirubin 2.3 H, Direct Bilirubin 1.4 H, AST 266 H, ALT 219 H, Alkaline Phosphatase 196 H, Troponin I < 0.01, Total Protein 8.6 H, Albumin 4.7, Amylase 3643 H, Lipase > 81519 H, CBC w Diff NO MAN DIFF REQ, RBC 5.70, MCV 90.0, MCH 31.6 H, MCHC 35.1, RDW 13.9, MPV 8.0, Gran % 91.8 H, Lymphocytes % 7.3 L, Monocytes % 0.6 L, Eosinophils % 0.3, Basophils % 0, Absolute Granulocytes 10.5 H, Absolute Lymphocytes 0.8 L, Absolute Monocytes 0.1, Absolute Eosinophils 0, Absolute Basophils 0 Vital Signs Date Time Temp Pulse Resp B/P B/P Pulse O2 O2 Flow FiO2 Mean Ox Delivery Rate 02/05 0633 98.9 80 20 134/91 97 Room Air 02/04 2117 98.2 75 18 126/80 94 02/04 1642 98.0 73 20 130/76 96 02/04 1440 97.9 65 20 155/84 97 02/04 1116 97.8 58 20 153/86 97 Room Air
[2018-02-05 14:21] VITALS: BP 128/90
--- NOTE | 2018-02-05 15:24 | RADIOLOGY REPORT ---
EXAMINATION: XR CHEST CLINICAL INFORMATION: Abdominal pain. COMPARISON: Chest radiograph 09/27/2015 TECHNIQUE: 2 views of the chest were obtained. FINDINGS: The cardiomediastinal silhouette is stable. There is a patchy airspace opacity in the left lung base, this may reflect atelectasis. No pneumothorax. IMPRESSION: No acute cardiopulmonary process.
--- NOTE | 2018-02-05 17:28 | MRI REPORT ---
EXAMINATION: MR ABDOMEN WITHOUT CONTRAST/MRCP CLINICAL INFORMATION: Admitted for acute head to approximately 0.5 cm and near the ampulla to pancreatitis. Biliary dilatation. Evaluate for common bile duct stone. COMPARISON: Ultrasound of the abdomen dated 02/04/2018. CT scan of the abdomen and pelvis dated 02/04/2018. TECHNIQUE: An MRI scan of the abdomen was performed using multiple imaging sequences and imaging planes. As per the MRCP protocol, heavily T2-weighted 3-D high-resolution MRCP sequences were obtained in the coronal plane along with thin and thick slab coronal images and coronal MIP reconstructions obtained on the technologist workstation under concurrent physician supervision. FINDINGS: Evaluation is limited by motion. LIVER: The liver is normal in size and signal. No hepatic steatosis is seen. No focal cystic or solid mass is present. GALLBLADDER/BILIARY TREE: The gallbladder is surgically absent. The cystic duct remnant is unremarkable. There is mild intrahepatic ductal dilatation. Common bile duct proximally is dilated to 1.0 cm. And tapers smoothly to 0.5 cm in the pancreatic head and 0.4 cm just prior to the ampulla. No choledocholithiasis is seen and no pancreatic head mass is appreciated on noncontrast study. PANCREAS: The pancreas is edematous with peripancreatic edema seen, extending into the anterior pararenal space and Gerota's fascia bilaterally and around the liver and spleen, consistent with acute pancreatitis. The pancreatic duct is normal in caliber, measuring 0.3 cm. No variant ductal anatomy is seen. No performed pseudocyst formation is seen at this point. SPLEEN: Normal size and appearance. ADRENAL GLANDS AND KIDNEYS: Adrenal glands normal. Kidneys bilaterally symmetric in size and function. No hydronephrosis, or perinephric stranding. There are a few bilateral small T2 bright masses in the kidneys, all measuring less than 1 cm in size, consistent with small cysts. BOWEL LOOPS: There is mild thickening of the third and fourth portions of the duodenum and the proximal jejunum in the left upper quadrant, consistent with a sympathetic reaction to the adjacent inflammatory changes in the pancreas. Small bowel loops are otherwise decompressed and unremarkable. Included portions of the colon are decompressed and unremarkable. LYMPHOVASCULAR STRUCTURES: Abdominal aorta normal in caliber. No periaortic collections. No abdominal adenopathy or free fluid collection. BONES: Within normal limits to the extent included. IMPRESSION: 1. Acute interstitial pancreatitis is seen with pancreatic parenchymal edema and peripancreatic soft tissue edema and stranding. Associated circumferential wall thickening in the duodenum and proximal jejunum is seen, consistent with sympathetic changes to the pancreatic inflammation. 2. No evidence of variant ductal anatomy. No definite pancreatic head mass seen on noncontrast study. 3. Mild intrahepatic ductal dilatation and moderate extrahepatic ductal dilatation to 1 cm is seen. There is smooth tapering of the common bile duct to 0.4 cm in the preampullary region with no evidence of choledocholithiasis. Findings may be related to the patient's postcholecystectomy state. 4. A few scattered bilateral renal cysts are incidentally seen.
[2018-02-05 22:18] VITALS: BP 124/74
[2018-02-06 05:59] VITALS: BP 130/90
[2018-02-06 07:35] LABS: ABSOLUTE BASOPHIL COUNT 0 /CUMM (0.0-0.2); ABSOLUTE EOSINOPHIL COUNT 0 /CUMM (0.0-0.7); ABSOLUTE GRANULOCYTE CT 10.7 /CUMM (1.4-6.5); ABSOLUTE LYMPH COUNT 0.7 /CUMM (1.2-3.4); ABSOLUTE MONOCYTE COUNT 0.7 /CUMM (0.10-0.60); BASOPHIL % 0 % (0.0-2.0); EOSINOPHIL % 0.1 % (0-5); MEAN CORPUSCULAR HGB 31.7 PG (27.0-31.0); MEAN CORPUSCULAR HGB CONC 34.7 G/DL (33.0-37.0); MEAN CORPUSCULAR VOLUME 91.3 FL (80.0-94.0); MEAN PLATELET VOLUME 8.6 FL (7.4-10.4); RBC DISTRIBUTION WIDTH 14.3 % (11.5-14.5); RED BLOOD CELL CT 5.04 /CUMM (4.70-6.10); WHITE BLOOD CELL COUNT 12.1 /CUMM (4.8-10.8)
--- NOTE | 2018-02-06 08:07 | PN- Housestaff ---
Subjective Follow-up For: Pancreatitis Subjective: Patient seen and examined. He continues to complain of excruciating pain and rates it at an 8 out of 10 on resting and 10 out of 10 on movement. The pain is worse on palpation. He notes that he is hungry and is eager to try a clear liquid diet. His last bowel movement was on Saturday. The patient has no other complaints other than his abdominal pain. His vitals overnight stable. Review of Systems Constitutional: Reports: no symptoms. Cardiovascular: Reports: no symptoms. Respiratory: Reports: no symptoms. Gastrointestinal: Reports: abdominal pain. Genitourinary: Reports: no symptoms. Musculoskeletal: Reports: no symptoms. Skin: Reports: no symptoms. Objective Last 24 Hrs of Vital Signs/I&O Vital Signs Date Time Temp Pulse Resp B/P B/P Pulse O2 O2 Flow FiO2 Mean Ox Delivery Rate 02/06 1405 95.5 80 20 138/80 93 Room Air 02/06 0800 96 Room Air 02/06 0559 98.3 80 20 130/90 94 Room Air 02/05 2218 98.7 88 18 124/74 94 Room Air Intake & Output 02/06 1600 02/06 0800 02/06 0000 Intake Total 600 550 Output Total 650 Balance 600 -100 Intake, IV 500 Intake, Oral 600 50 Number 0 Bowel Movements Output, Urine 650 Physical Exam General Appearance: Alert, Oriented X3, Cooperative, Mild Distress Skin: No Rashes Sepsis Skin Exam (color): Normal for Ethnicity Cardiovascular: Regular Rate, Normal S1, Normal S2, No Murmurs Lungs: Clear to Auscultation, Normal Air Movement Abdomen: Normal Bowel Sounds, Soft, No Tenderness Neurological: Normal Speech Extremities: No Clubbing, No Cyanosis, No Edema Vascular: Normal Pulses, Pulses Symmetrical Current Medications: Current Medications Sig/Oz Start time Last Medication Dose Route Stop Time Status Admin Heparin Sodium 5,000 UNIT Q8 02/04 0600 AC 02/06 (Porcine) SC 1404 Hydromorphone HCl 0.8 MG Q3P PRN 02/04 1845 AC 02/06 IV 1405 Lactated Ringer's 1,000 ML Q6H 02/05 1100 DC 02/05 IV 02/059 1805 Morphine Sulfate 4 MG Q4P PRN 02/04 0330 AC 02/06 IV 1147 Nicotine 7 MG DAILY 02/04 0900 02/06 TOP 0958 Omeprazole 40 MG DAILY 02/07 0700 UNVr PO Ondansetron HCl 4 MG Q6P PRN 02/04 0245 AC 02/04 IV 1858 Oxycodone HCl 5 MG Q6P PRN 02/04 0800 AC 02/06 PO 1453 Pantoprazole Sodium 40 MG DAILY 02/05 0900 DC 02/06 IV 0958 Potassium Chloride 40 MEQ ONCE ONE 02/06 1430 DC 02/06 PO 02/06 1431 1453 Senna/Docusate Sodium 2 TAB DAILY 02/06 1028 AC 02/06 PO 1246 Last 24 Hrs of Lab/Steven Results Last 24 Hrs of Labs/Mics: Laboratory Tests 02/06/18 0630: Anion Gap 7, Estimated GFR > 60, BUN/Creatinine Ratio 34.3 H, Total Bilirubin 1.7 H, Direct Bilirubin 0.7 H, AST 26, ALT 63, Alkaline Phosphatase 88, Total Protein 5.7 L, Albumin 2.9 L, Amylase 195 H, Lipase 568 H, CBC w Diff NO MAN DIFF REQ, RBC 5.04, MCV 91.3, MCH 31.7 H, MCHC 34.7, RDW 14.3, MPV 8.6, Gran % 88.8 H, Lymphocytes % 5.6 L, Monocytes % 5.5, Eosinophils % 0.1, Basophils % 0 , Absolute Granulocytes 10.7 H, Absolute Lymphocytes 0.7 L, Absolute Monocytes 0.7 H, Absolute Eosinophils 0, Absolute Basophils 0 Assessment/Plan Assessment: Mr. Bynum is a 52yo M w/ PMH of diverticulitis, kidney stones s/p lithotripsy, gallstones s/p cholecystectomy, s/p Pippa procedure w/ temporary colostomy followed by revision in 2015, s/p hernia repair, reversible ischemia on nuclear stress test status post cardiac cath recently in 2014 presented to [facility] w/ N/V/D/severe intermittent ab pain since 1pm of 02/03/2018, endorseed loose BM x 1 on 02/03 but none since, w/ intermittent non-bloody vomiting, mostly foods. During our clinical interaction, patient denied recent travel/sick contacts, fever/lightheadedness/diaphoresis/night sweat/weight change/cough/SOB/Chest Pain /urinary abnormality, or other skin/musculoskeletal/neurological/mood disorders, or dietary/appetite change. -Smoking: active smoker 30ppy -Alcohol: denied -Drugs: denied On admission, Vitals: stable afebrile, HTN 218/97 Physical exam as above. Pertinent findings include acute distress 2/2 pain w/ HTN on monitor, and epigastric and LLQ ab pain on palpation, decreased BS. Limited exam due to pain. -CBC: mild leukocytosis 11.5, otherwise WNL -CMP: WNl except Amylase/Lipase 3643/>89253, Tb/DB 2.4/1.4, AST/ALT 266/219, ALKP 196, trop -ve x [address]: Prominent inflammatory changes surrounding the pancreas with edematous appearance of the pancreas. This is suggestive of acute pancreatitis. -Stable ectatic appearance of the left common iliac artery. Abdominal ultrasound: 1. Edematous pancreas with peripancreatic fluid, consistent with acute pancreatitis. 2. The pancreatic head and portions of the tail are not visualized. 3. Intra and extrahepatic ductal dilatation is seen. Common bile duct measuring up to 1 cm. Findings may at least in part be related to the patient's postcholecystectomy state with similar appearance seen on older CT scan from 07/11/2017, at which time, no evidence of acute pancreatitis was seen. In the visualized portions of the common bile duct on today's exam, no filling defect is seen. Distal most CBD is, however, not visualized. Close clinical correlation is requested. 4. Status post cholecystectomy. -EKG: NSR w/o significant ST-T abnormalities, unchanged from previous. -Last Echo: 2011 by [facility], stage 2 diastolic dysfunction -Interventions in ER: NS bolus x 1, Morphine 6mg IV x 2, ZOfran IV x 1 Problem list/Assessment/Hospital Course: #Acute pancreatitis, unclear etiology currently #Transaminitis/Elev AlkP, likely reactive #R/o Biliary causes (choledocolithiasis, etc) #Active smoker #PMHx as above -Patient admitted to general medicine floors for evaluation and treatment -Vitals per protocol, monitor I&O per protocol. -Appreciate GI consult, patient was initially started on lactated Ringer's rate to 250 cc/h. LDH was done as per GI and was 799, CRP sent for prognostic purposes which was elevated. Chest x-ray done to evaluate for pleural effusion showed no evidence. No evidence of hemoconcentration which would be a poor prognostic indicator. Patient had MRCP done yesterday stated not show any evidence of stone but did show dilated ducts. It is likely that the stone artery passed. Patient however continues to have severe pain and is on 2 different narcotics. We will attempt to wean these medications. We will refer the patient to Dr. Navarrete for follow-up with endoscopic ultrasound at [place]. Amylase and lipase have decreased but LFTs have remained elevated. We will continue to trend these. We have switched IV Protonix to by mouth. The patient has been put on a clear liquid diet today and if he is tolerating well, we will advance. He is currently not on any antibiotics as there is no evidence of cholecystitis. Patient continues to be afebrile. -Continue home meds -Repleted potassium today as his potassium level was 3.6 -Nicotine patch PRN. -Trend BEP/LFTs -Pain per pathway w/ IV Morphine/Dilaudid PRN with tapering. -Senna S for constipation as patient has not had a bowel movement since last week. DVT prophylaxis Lovenox + ALPS NPO Full Code Problem List: 1. Pancreatitis Pain Ratin Pain Location: Abdomen around the area of the epigastrium Pain Goal: Pain 4 or less Pain Plan: Pain pathway with morphine and Dilaudid Tomorrow's Labs & Rationales: BEP and LFTs
[2018-02-06 08:21] LABS: GRANULOCYTE % 88.8 % (42.2-75.2); PLATELET COUNT 166 /CUMM (130-400)
--- NOTE | 2018-02-06 11:17 | PN- Att Addend ---
Attending Addendum Attending Brief Note Patient still in pain. Vital signs are stable no fever his abdomen is soft shirring tender to deep palpation. Tolerating clear liquids okay. He had his MRI yesterday that showed acute interstitial pancreatitis with pancreatic parenchymal edema and peripancreatic soft tissue edema and stranding. Mild intrahepatic ductal dilatation and moderate extrahepatic ductal dilatation to 1 cm was seen. Postcholecystectomy state. Patient might have passed a stone that originally started pancreatitis. His white count is 12,100, potassium today 3.6. Total bilirubin 1.7 with a direct of 0.7. The rest of the liver function tests are within normal limits. Amylase is down to 195 lipase down to 568. Appreciate GIs input and recommendations. Continue pain management continue observation continue to follow the labs closely and slowly advance the diet Intake & Output 02/06 0400 02/05 1600 02/05 0400 02/04 1600 02/04 0400 Intake Total 550 3600 450 1000 1000 Output Total 650 2350 500 Balance -100 1250 107 724 6679 Intake, IV 500 3600 450 1000 1000 Intake, Oral 50 Number 0 Bowel Movements Output, Urine 650 2350 500 Patient 211 lb 210 lb Weight Weight Reported by Patient Measurement Method Current Medications Sig/Oz Start time Last Medication Dose Route Stop Time Status Admin Heparin Sodium 5,000 UNIT Q8 02/04 06 AC 02/06 (Porcine) SC 0614 Hydromorphone HCl 0.8 MG Q3P PRN 02/04 1845 AC 02/06 IV 1027 Lactated Ringer's 1,000 ML Q6H 02/05 1100 DC 02/05 IV 02/05 205 1805 Morphine Sulfate 4 MG Q4P PRN 02/04 0330 AC 02/06 IV 0614 Nicotine 7 MG DAILY 02/04 0900 AC 02/06 TOP 0958 Ondansetron HCl 4 MG Q6P PRN 02/04 0245 AC 02/04 IV 1858 Oxycodone HCl 5 MG Q6P PRN 02/04 08 AC 02/06 PO 0845 Pantoprazole Sodium 40 MG DAILY 02/05 0900 AC 02/06 IV 0958 Senna/Docusate Sodium 2 TAB DAILY 02/06 1028 AC PO Laboratory Tests 02/06/18 0630: Anion Gap 7, Estimated GFR > 60, BUN/Creatinine Ratio 34.3 H, Total Bilirubin 1.7 H, Direct Bilirubin 0.7 H, AST 26, ALT 63, Alkaline Phosphatase 88, Total Protein 5.7 L, Albumin 2.9 L, Amylase 195 H, Lipase 568 H, CBC w Diff NO MAN DIFF REQ, RBC 5.04, MCV 91.3, MCH 31.7 H, MCHC 34.7, RDW 14.3, MPV 8.6, Gran % 88.8 H, Lymphocytes % 5.6 L, Monocytes % 5.5, Eosinophils % 0.1, Basophils % 0 , Absolute Granulocytes 10.7 H, Absolute Lymphocytes 0.7 L, Absolute Monocytes 0.7 H, Absolute Eosinophils 0, Absolute Basophils 0 02/05/18 0715: Anion Gap 7, Estimated GFR > 60, BUN/Creatinine Ratio 27.5 H, Total Bilirubin 1.4 H, Direct Bilirubin 0.5 H, AST 40, ALT 100 H, Alkaline Phosphatase 117, C -Reactive Prot, Quant > 9.0 H, Total Protein 6.4, Albumin 3.4 L, PT 15.6 H, INR 1.43 H, CBC w Diff NO MAN DIFF REQ, RBC 5.60, MCV 90.9, MCH 30.9, MCHC 34.0 , RDW 14.3, MPV 8.4, Gran % 91.3 H, Lymphocytes % 4.7 L, Monocytes % 3.7, Eosinophils % 0.1, Basophils % 0.2, Absolute Granulocytes 14.4 H, Absolute Lymphocytes 0.7 L, Absolute Monocytes 0.6, Absolute Eosinophils 0, Absolute Basophils 0 02/04/18 0317: Lactic Acid Cancelled 02/04/18 0246: Lactate Dehydrogenase 799 H, Triglycerides 101, Serum Alcohol < 10.0 02/04/18 0116: Anion Gap 14, Estimated GFR > 60, BUN/Creatinine Ratio 14.5, Glucose 125 H, Calcium 10.1, Total Bilirubin 2.3 H, Direct Bilirubin 1.4 H, AST 266 H, ALT 219 H, Alkaline Phosphatase 196 H, Troponin I < 0.01, Total Protein 8.6 H, Albumin 4.7, Amylase 3643 H, Lipase > 26710 H, CBC w Diff NO MAN DIFF REQ, RBC 5.70, MCV 90.0, MCH 31.6 H, MCHC 35.1, RDW 13.9, MPV 8.0, Gran % 91.8 H, Lymphocytes % 7.3 L, Monocytes % 0.6 L, Eosinophils % 0.3, Basophils % 0, Absolute Granulocytes 10.5 H, Absolute Lymphocytes 0.8 L, Absolute Monocytes 0.1, Absolute Eosinophils 0, Absolute Basophils 0 Vital Signs Date Time Temp Pulse Resp B/P B/P Pulse O2 O2 Flow FiO2 Mean Ox Delivery Rate 02/06 0559 98.3 80 20 130/90 94 Room Air 02/05 2218 98.7 88 18 124/74 94 Room Air 02/05 1421 98.2 84 20 128/90 95 Room Air
[2018-02-06 14:05] VITALS: BP 138/80
--- NOTE | 2018-02-06 14:20 | PN- Gastroenterology ---
Assessment/Plan GI Assessment/Recommendations: 52 y/o male, HTN, non-DM, renal stones post ESWL, smoker, hx GERD, anxiety, 02/27: CCKY for biliary colic (path: chronic cholecystitis, cholesterolosis, & cholelithiasis), hx diverticulosis coli, post 09/05/15: Pippa's procedure for sigmoid diverticulitis with phlegmon, f/b 12/27/15: reversal of colostomy, KRISTIN, reinforcement of midline fascia with mesh. This was followed by 08/14/16: open mesh repair of ventral incisional hernia, along with bilateral advancement rectus muscular fascial flap reconstruction, all per Dr. Cordon. He also has hx gout & had numerous orthopedic procedures, including right rotator cuff surgery, & left elbow ulnar surgery. *He had a chronic pain syndrome in the right flank. 03/15/06: EGD/colonoscopy (purged) gastric bxs unremarkable, H. pylori negative; bxs GEJ- benign inflammation, without Collier's esophagus. 09/06/14: Combined baseline upper endoscopy to the third portion of the duodenum with biopsies, plus follow up colonoscopy to the terminal ileum with biopsies (*done for GERD & chronic vague right-sided abdominal sx, requiring multiple ER visits & OV with the GI APPOINTMENT SCHEDULER)- ? mild gastroparesis with bile cleared from proximal stomach, random bxs D2/D3- neg, random bx antrum- mild CAG, HP-neg, bx inflamed cardia- mild CFG , HP-neg, 2 cm HH, random bxs distal esophagus at 42 cm/Z line & at 39 cm- nl esophageal mucosa, neg EOE; mod L tics, focal sigmoid erythema from 25-30 cm in midst of tics-colonic mucosa with focal hyperplastic change & hemorrhage, random bxs of TI, right colon, left colon, & rectum- all neg. (The pt was rxd Nexium 40 mg daily then) He was due for f/u surveillance colonoscopy x 10 yrs (avg risk) = 08/2024. He was told if inc sx, to consider GES (which he never had), TFT with TSH, HgbA1C, celiac panel, etc. He was then seen in inpatient GI consultation 04/22/[address] Sprague for sigmoid diverticulitis, txd with antibiotics. He ultimately then had 09/05/15: Pippa 's procedure, followed by 12/27/15: reversal of colostomy/KRISTIN & 08/14/16: open mesh repair of ventral incisional hernia, as above. He was most recently seen in inpatient GI consultation by Dr. Jenae Ardon , for chronic progressive vague right-sided abdominal/right flank pain, which was somewhat positional in nature. This was felt to have a neuropathic quality. History, exam, and imaging did not show any acute intra-abdominal or retroperitoneal process. He had a minimally elevated lipase then which was felt to be nonspecific. There was no clinical evidence of pancreatitis. A radicular process vs. zoster was considered, & he was rxd ANGE & Valacyclovir. A Lyme titer then was negative, although he did get a 10 day course of Doxycyline. Since 1 PM on 02/03/18, the patient noted nausea, vomiting, diarrhea, and intermittent, severe intense, abdominal pain, described as "someone beating the hell out of my stomach". It was localized to the periumbilical region, radiating suprapubically and epigastrically. Initially, the pain was "3 out of 10", then became "10 out of 10" and constant in nature. He took [place], without relief. He arrived at the [facility] 02/04/18 at 12:14 a.m. for the above, at which point, he was HTN, with BP 218/97, P 57, R 22, T 97.5, O2 sat RA 100%. He was initially in tears from the pain. 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 The vomitus initially showed partially digested food, but then became clear, non-bloody, non-bilious. He had chronic GERD, for which he took Tums prn. He was not on longstanding PPI. He denied any odynophagia or dysphagia. He denied using any NSAIDS, thiazides, or Sulfa meds. He denied any hematemesis, melena, or BRBPR. He denied any EtOH, transfusions, IVDA, HIV, or hx viral hepatitis. He denied any definite jaundice, dark urine, light stools, pruritus, or confusion. He denied any fevers, chills, night sweats, CP, SOB, symptoms of UTI or URI. There was no abdominal trauma. His appetite was fair, since his multiple abdominal surgeries a few years ago. He denied any early satiety. His weight had been stable for the past 2 years, but he stated that he was previously obese & lost > 100 lbs a few years ago, in the midst of tx of his divericulitis. There is no FHx GI Ca, GI disease, inherited pancreatitis, or inherited liver disease. He was found to have newly elevated LFTs & elevated lipase (*see labs). 11/24/17: minimal lipase 401, with nl LFTs. 02/04/18: 0116- Admission labs-WBC 11.5 (92% gran/11 gran Ab), H/H 18/51.3, MCV 90, RDW 13.9, PLT 137, glucose 125, BUN/CR 16/1.1, GFR > 60, Na 141, K 4.0, HCO3 23, AG 14, Ca 10.1, amylase 3643, lipase > 10K, albumin 4.7, globulin 3.9, Tbil 2.3, DBil 1.4, alk phos 196, AST 266, ALT 219, troponin < 0.01; (no U/A or PT/ PTT). 02/04/18: 0246- *TG 101, [EtOH] < 10. 02/04/18: EKG- SB @ 57, nl axis, DC .20, no ischemic change. 02/04/18: CT ABDOMEN AND PELVIS WITHOUT IV CONTRAST (*per Krishna CARRENO, limited study w/o IV cont)- Prominent inflammatory changes surrounding the pancreas with edematous appearance of the pancreas. This is suggestive of acute pancreatitis. No PD dilitation. Post CCKY with postop CBD 1.3 cm (chronic), no filling defect. Stable ectatic appearance of the left common iliac artery. Normal AP. No hernia. DJD. 02/04/18: US ABDOMEN COMPLETE- 1. Edematous pancreas with peripancreatic fluid, consistent with acute pancreatitis. 2. The pancreatic head and portions of the tail are not visualized. 3. Intra and extrahepatic ductal dilatation is seen. Common bile duct measuring up to 1 cm. Findings may at least in part be related to the patient's postcholecystectomy state with similar appearance seen on older CT scan from 07/11/2017, at which time, no evidence of acute pancreatitis was seen. In the visualized portions of the common bile duct on today's exam, no filling defect is seen. Distal most CBD is, however, not visualized. Close clinical correlation is requested. 4. Status post cholecystectomy. *Unfortunately, no MRCP available at [facility] on Tuesdays, prohibiting this on . *Most likely, the patient has gallstone pancreatitis. His TG were normal. He did bump up his LFTs. *He had no signs or symptoms of cholangitis. *The admission CT was somewhat limited without IV contrast. Even so, it showed pancreatic inflammation. Subsequent admission ultrasound showed chronic mild nonspecific dilated CBD & mildly dilated IHD, but apparently, these findings are chronic, post CCKY. However, the elevated LFTs are new. Unfortunately, MRCP is not available at [facility] on Tuesdays, & therefore, could not be obtained on . He appeared somewhat hemoconcentrated on admission, as did his HCT 51.3. *He had 1 grave sign by Kala criteria on admission, namely elevated AST, although no LDH was sent. *He had 0 grave signs by BiSAP criteria on admission, but no CXR was obtained to rule out pleural effusions. (Limited views of the lung bases on CT AP were clear). He denied EtOH. He is a 30 pk yr cigarette smoker, which is a risk factor for pancreatitis. 02/05/18: Labs- *CBC, etc.- pending (*partial- BUN/Cr 22/0.8, GFR 60, Na 135, K 3.4, HCO3 26, AG 7, albumin 3.4, globulin 3.0, TBil 1.4, DBil 0.5, alk phos 117, AST 40, ALT 100, PT 15.6, INR 1.43) *As of 02/05/18, the patient remained hemodynamically stable (mildly HTN 134/91) & afebrile, with O2 sat RA 97%. He remained NPO, *awaiting MRCP for presumed gallstone pancreatitis. *He had no signs or sx of cholangitis. Requiring IV narcotics. His abdominal pain was "out of 10". The abdominal pain was fairly diffuse. He denied any nausea, vomiting, CP, SOB, or confusion. There were no fevers or chills. He denied any jaundice. He was slightly anxious. Empiric Vit K 10 mg sc x 1 was given 02/04/18, in anticipation of possible papillotomy. IV Protonix 40 mg daily was rxd. The fact that the patient's LFTs were slowly declining was reassuring. *Await MRCP. 02/05/18: XRY-CHEST XRAY, TWO VIEWS- No acute cardiopulmonary process. 02/05/18: *MR ABDOMEN WITHOUT CONTRAST/MRCP (*personally reviewed by myself with Dr. Payne, of [facility], on 02/05/18). 1. Acute interstitial pancreatitis is seen with pancreatic parenchymal edema and peripancreatic soft tissue edema and stranding. Associated circumferential wall thickening in the duodenum and proximal jejunum is seen, consistent with sympathetic changes to the pancreatic inflammation. Normal PD. No pancreas divisum. No pseudocyst or abscess. 2. No evidence of variant ductal anatomy. No definite pancreatic head mass seen on noncontrast study. 3. Mild intrahepatic ductal dilatation and moderate extrahepatic ductal dilatation to 1 cm is seen. There is smooth tapering of the common bile duct to 0.4 cm in the preampullary region with no evidence of choledocholithiasis. Findings may be related to the patient's postcholecystectomy state. 4. A few scattered bilateral renal cysts are incidentally seen. *MRCP was personally reviewed with Dr. Payne, of [facility], on . The CBD was clean. There was no evidence of choledocholithiasis. A mild dilated IHT and CBD of 1 cm, tapering down to 4 mm in the periampullary region were chronic in nature, comparing prior studies, post CCKY. *Unfortunately, the admission CT obtained by the ER was done without IV contrast, limiting better visualization of the pancreas. 02/04/18: LDH 799 02/05/18: WBC 15.7 (91% gran/14 gran Ab), H/H 17.3/50.9. MCV 90.9, RDW 14.3, PLT 215 02/05/18: *CRP > 9.0 02/06/18: WBC 12.1 (89% gran/11 gran Ab), H/H 15.9/46.0, PLT 166, BUN/Cr 24/0.7, GFR > 60, Na 134, K 3.6, HCO3 24, AG 7, decreasing amylase/lipase 195/568, alb 2.9, glob 2.8, TBil 1.7/DBil 0.7, alk phos 88, AST 26, ALT 63 *As of 02/06/2018, the patient still had some abdominal pain requiring narcotic analgesics, but it was slowly improving. He was tolerating clears po. He was ambulating. He was constipated for the past 2-3 days, most likely from the narcotics. Senna was added. He denied any fevers, chills, nausea, vomiting, or jaundice. His LFTs had improved, with a minimal blip in his TBil, possibly from Gilbert's. His WBC was declining. There was no evidence of hemoconcentration by labs. He was hemodynamically stable (mildly HTN) and persistently afebrile, with O2 sat RA 96%. He had no signs or symptoms of cholangitis. *Clinically, lab zambrano, and radiographically, the patient probably passed a CBD stone, post remote CCKY. *Based on this, no need for ERCP at present. There are no signs or symptoms of cholangitis. *SUGGEST: Clears po as tolerated, and if stable, advance to full liquids tomorrow. *There has been no evidence of hemoconcentration. If patient tolerates feeds, may D/C IVF. Strict I/O's. Serial CBC, *LFTs, lytes, BUN/Cr, GFR. *Replete K+. IV Zofran. *Try to taper analgesics. *If needed for narcotic induced constipation, consider Relistor vs. Movantik vs. Linzess. Can switch IV Protonix 40 mg daily to po route, for GERD. At present, no need for antibiotics to cover the RUQ, as there are no signs or sx of cholangitis. D/C cigarettes. DVT prophylaxis. * Please call GI LISA, if the patient develops signs or sx of cholangitis, namely hypotension, tachycardia, confusion, temp spikes, etc. (As an aside, he is due for f/u surveillance colonoscopy in 08/2024). *Assuming the patient continues to improve, plans will be to obtain an outpatient EUS at [place] in about 1 month, to reassess the CBD and pancreas (doubt mass), as the admission CT from the [facility] ER was somewhat limited without IV contrast. *I would recommend a follow GI OV after the EUS is obtained, unless the patient's symptoms worsen. The patient has my office number.*The above was discussed with the medical housestaff. Dr. Mckeon will be assuming the inpt GI sefvice tomorrow. Further GI recommendations to follow, depending on clinical course. Problem List: 1. Gallstone pancreatitis 2. Abdominal pain 3. Nausea & vomiting 4. Elevated LFTs 5. GERD (gastroesophageal reflux disease) 6. Diverticulosis of colon 7. History of colostomy reversal 8. History of cholecystectomy Subjective Subjective: 02/05/18: XRY-CHEST XRAY, TWO VIEWS- No acute cardiopulmonary process. 02/05/18: *MR ABDOMEN WITHOUT CONTRAST/MRCP (*personally reviewed by myself with Dr. Payne, of [facility], on 02/05/18). 1. Acute interstitial pancreatitis is seen with pancreatic parenchymal edema and peripancreatic soft tissue edema and stranding. Associated circumferential wall thickening in the duodenum and proximal jejunum is seen, consistent with sympathetic changes to the pancreatic inflammation. Normal PD. No pancreas divisum. No pseudocyst or abscess. 2. No evidence of variant ductal anatomy. No definite pancreatic head mass seen on noncontrast study. 3. Mild intrahepatic ductal dilatation and moderate extrahepatic ductal dilatation to 1 cm is seen. There is smooth tapering of the common bile duct to 0.4 cm in the preampullary region with no evidence of choledocholithiasis. Findings may be related to the patient's postcholecystectomy state. 4. A few scattered bilateral renal cysts are incidentally seen. *MRCP was personally reviewed with Dr. Payne, of [facility], on . The CBD was clean. There was no evidence of choledocholithiasis. A mild dilated IHT and CBD of 1 cm, tapering down to 4 mm in the periampullary region were chronic in nature, comparing prior studies, post CCKY. *Unfortunately, the admission CT obtained by the ER was done without IV contrast, limiting better visualization of the pancreas. 02/04/18: LDH 799 02/05/18: WBC 15.7 (91% gran/14 gran Ab), H/H 17.3/50.9. MCV 90.9, RDW 14.3, PLT 215 02/05/18: *CRP > 9.0 02/06/18: WBC 12.1 (89% gran/11 gran Ab), H/H 15.9/46.0, PLT 166, BUN/Cr 24/0.7, GFR > 60, Na 134, K 3.6, HCO3 24, AG 7, decreasing amylase/lipase 195/568, alb 2.9, glob 2.8, TBil 1.7/DBil 0.7, alk phos 88, AST 26, ALT 63 *As of 02/06/2018, the patient still had some abdominal pain requiring narcotic analgesics, but it was slowly improving. He was tolerating clears po. He was ambulating. He was constipated for the past 2-3 days, most likely from the narcotics. Senna was added. He denied any fevers, chills, nausea, vomiting, or jaundice. His LFTs had improved, with a minimal blip in his TBil, possibly from Gilbert's. His WBC was declining. There was no evidence of hemoconcentration by labs. He was hemodynamically stable (mildly HTN) and persistently afebrile, with O2 sat RA 96%. He had no signs or symptoms of cholangitis. Review of Systems: Full 14 point ROS otherwise noncontributory, & as above. Review of Systems Constitutional: Denies: chills, diaphoresis, fever, malaise, weakness, unexplained weight loss. EENTM: Denies: blurred vision, double vision, visual changes, eye pain, eye drainage, eye tearing, icterus, ear discharge, ear pain, ear redness, hearing changes, nasal congestion, epistaxis, nasal pain, throat pain, throat swelling, mouth pain, tooth pain. Cardiovascular: Denies: chest pain, edema, orthopena, palpitations, peripheral edema, syncope. Respiratory: Denies: cough, hemoptysis, orthopnea, short of breath, sputum production, stridor, wheezing. GI: Reports: abdominal pain-> slowly improving; nausea & vomiting-> improved. Denies: bloating, constipation, diarrhea, distention, bowel incontinence, melena , bloody stool, changes in stool, steatorrhea. Genitourinary: Denies: discharge, dysuria, frequency, hematuria, hesitation, nocturia, pain, urgency. Musculoskeletal: Denies: back pain, gout, joint pain, joint swelling, muscle pain, muscle stiffness, neck pain. Skin: Denies: cysts, change in skin color, change in hair/nails, dryness, erythema, jaundice, lesions, lymphangitis, lumps, moles, rash. Neurological/Psychological: Reports: anxiety, emotional problems. Denies: ataxia, cognitive dysfunction, confusion, depressed, dementia, headache, numbness, paresthesia, pre-existing deficit, petit mal seizures, tingling, tremors, tonic-clonic seizures, unable to move lower ext, unable to move upper ext, weakness, other. Hematologic/Endocrine: Denies: bruising, bleeding, polyuria, polydipsia. Immunologic/Allergic: Denies: splenectomy, HIV/AIDS, lymphadenopathy. All Other Systems: Reviewed and Negative Objective Vital Signs and I&Os Vital Signs Date Time Temp Pulse Resp B/P B/P Pulse O2 O2 Flow FiO2 Mean Ox Delivery Rate 02/06 0800 96 Room Air 02/06 0559 98.3 80 20 130/90 94 Room Air 02/05 2218 98.7 88 18 124/74 94 Room Air Intake & Output 02/06 1600 02/06 0400 02/05 1600 02/05 0400 02/04 1600 02/04 0400 Intake Total 550 3600 450 1000 1000 Output Total 650 2350 500 Balance -100 1250 331 396 2592 Intake, IV 500 3600 450 1000 1000 Intake, Oral 50 Number 0 Bowel Movements Output, Urine 650 2350 500 Patient 211 lb 210 lb Weight Weight Reported by Patient Measurement Method Physical Exam: Well-developed, well-nourished male in minimal distress, non-toxic appearing. Slightly anxious. Sclera no longer icteric. Conjunctiva pink. Oropharynx clear. No oral thrush. No aphthous ulcers. There is no adenopathy, thyromegaly, or JVD. No peripheral stigmata of inflammatory bowel disease or chronic liver disease on exam. No spiders on the anterior chest wall. No gynecomastia. No CVA tenderness. No spine tenderness. Lungs: clear to A&P. No wheezing, rales, or rhonchi. Heart exam: regular rate rhythm, S1 and S2, without any murmur. Abdominal exam: normal bowel sounds, softer belly, mild epigastric > RUQ/LUQ tenderness on palpation, without guarding or rebound. No mass. No organomegaly. No fluid shift. No epigastric bruit. No pulsatile mass. Multiple scars. Digital rectal exam: deferred by patient. Extremities: without C, C, or E. No rash. Mild DJD. No palmar erythema. No Dupuytren's contractures. No palpable cords. Distal pulses 2+ bilaterally. DTRs 2+ bilaterally. Right handed. CN II-XII intact. Alert and oriented x 3. No tremor. No asterixis. Current Medications: Current Medications Sig/Oz Start time Last Medication Dose Route Stop Time Status Admin Heparin Sodium 5,000 UNIT Q8 02/04 0600 AC 02/06 (Porcine) SC 1404 Hydromorphone HCl 0.8 MG Q3P PRN 02/04 1845 AC 02/06 IV 1405 Lactated Ringer's 1,000 ML Q6H 02/05 1100 DC 02/05 IV 02/05 2059 1805 Morphine Sulfate 4 MG Q4P PRN 02/04 0330 AC 02/06 IV 1147 Nicotine 7 MG DAILY 02/04 0900 AC 02/06 TOP 0958 Ondansetron HCl 4 MG Q6P PRN 02/04 0245 AC 02/04 IV 1858 Oxycodone HCl 5 MG Q6P PRN 02/04 0800 AC 02/06 PO 1453 Pantoprazole Sodium 40 MG DAILY 02/05 0900 AC 02/06 IV 0958 Potassium Chloride 40 MEQ ONCE ONE 02/06 1430 DC 02/06 PO 02/06 1431 1453 Senna/Docusate Sodium 2 TAB DAILY 02/06 1028 AC 02/06 PO 1246 Results Pertinent Lab Results: Laboratory Tests 02/06 02/05 0630 0715 Chemistry Sodium (137 - 145 mmol/L) 134 L 135 L Potassium (3.5 - 5.1 mmol/L) 3.6 3.4 L Chloride (98 - 107 mmol/L) 103 102 Carbon Dioxide (22 - 30 mmol/L) 24 26 Anion Gap (5 - 16) 7 7 BUN (9 - 20 mg/dL) 24 H 22 H Creatinine (0.7 - 1.2 mg/dL) 0.7 0.8 Estimated GFR (>60 ml/min) > 60 > 60 BUN/Creatinine Ratio (7 - 25 %) 34.3 H 27.5 H Total Bilirubin (0.2 - 1.3 mg/dL) 1.7 H 1.4 H Direct Bilirubin (< 0.4 mg/dL) 0.7 H 0.5 H AST (17 - 59 U/L) 26 40 ALT (21 - 72 U/L) 63 100 H Alkaline Phosphatase (< 127 U/L) 88 117 C-Reactive Prot, Quant (<1.0 mg/dL) > 9.0 H Total Protein (6.3 - 8.2 g/dL) 5.7 L 6.4 Albumin (3.5 - 5.0 g/dL) 2.9 L 3.4 L Amylase (30 - 110 U/L) 195 H Lipase (23 - 300 U/L) 568 H Coagulation PT (9.4 - 12.5 SEC) 15.6 H INR (0.90 - 1.17) 1.43 H Hematology CBC w Diff NO MAN DIFF REQ NO MAN DIFF REQ WBC (4.8 - 10.8 /CUMM) 12.1 H 15.7 H RBC (4.70 - 6.10 /CUMM) 5.04 5.60 Hgb (14.0 - 18.0 G/DL) 15.9 17.3 Hct (42 - 52 %) 46.0 50.9 MCV (80.0 - 94.0 FL) 91.3 90.9 MCH (27.0 - 31.0 PG) 31.7 H 30.9 MCHC (33.0 - 37.0 G/DL) 34.7 34.0 RDW (11.5 - 14.5 %) 14.3 14.3 Plt Count (130 - 400 /CUMM) 166 215 MPV (7.4 - 10.4 FL) 8.6 8.4 Gran % (42.2 - 75.2 %) 88.8 H 91.3 H Lymphocytes % (20.5 - 51.1 %) 5.6 L 4.7 L Monocytes % (1.7 - 9.3 %) 5.5 3.7 Eosinophils % (0 - 5 %) 0.1 0.1 Basophils % (0.0 - 2.0 %) 0 0.2 Absolute Granulocytes (1.4 - 6.5 /CUMM) 10.7 H 14.4 H Absolute Lymphocytes (1.2 - 3.4 /CUMM) 0.7 L 0.7 L Absolute Monocytes (0.10 - 0.60 /CUMM) 0.7 H 0.6 Absolute Eosinophils (0.0 - 0.7 /CUMM) 0 0 Absolute Basophils (0.0 - 0.2 /CUMM) 0 0 02/04 02/04 02/04 0317 0246 0116 Chemistry Sodium (137 - 145 mmol/L) 141 Potassium (3.5 - 5.1 mmol/L) 4.0 Chloride (98 - 107 mmol/L) 105 Carbon Dioxide (22 - 30 mmol/L) 23 Anion Gap (5 - 16) 14 BUN (9 - 20 mg/dL) 16 Creatinine (0.7 - 1.2 mg/dL) 1.1 Estimated GFR (>60 ml/min) > 60 BUN/Creatinine Ratio (7 - 25 %) 14.5 Glucose (65 - 99 mg/dL) 125 H Lactic Acid Cancelled Calcium (8.4 - 10.2 mg/dL) 10.1 Total Bilirubin (0.2 - 1.3 mg/dL) 2.3 H Direct Bilirubin (< 0.4 mg/dL) 1.4 H AST (17 - 59 U/L) 266 H ALT (21 - 72 U/L) 219 H Alkaline Phosphatase (< 127 U/L) 196 H Lactate Dehydrogenase (313 - 618 U/L) 799 H Troponin I (<0.11 ng/ml) < 0.01 Total Protein (6.3 - 8.2 g/dL) 8.6 H Albumin (3.5 - 5.0 g/dL) 4.7 Triglycerides (<150 mg/dL) 101 Amylase (30 - 110 U/L) 3643 H Lipase (23 - 300 U/L) > 71592 H Hematology CBC w Diff NO MAN DIFF REQ WBC (4.8 - 10.8 /CUMM) 11.5 H RBC (4.70 - 6.10 /CUMM) 5.70 Hgb (14.0 - 18.0 G/DL) 18.0 Hct (42 - 52 %) 51.3 MCV (80.0 - 94.0 FL) 90.0 MCH (27.0 - 31.0 PG) 31.6 H MCHC (33.0 - 37.0 G/DL) 35.1 RDW (11.5 - 14.5 %) 13.9 Plt Count (130 - 400 /CUMM) 137 MPV (7.4 - 10.4 FL) 8.0 Gran % (42.2 - 75.2 %) 91.8 H Lymphocytes % (20.5 - 51.1 %) 7.3 L Monocytes % (1.7 - 9.3 %) 0.6 L Eosinophils % (0 - 5 %) 0.3 Basophils % (0.0 - 2.0 %) 0 Absolute Granulocytes (1.4 - 6.5 /CUMM) 10.5 H Absolute Lymphocytes (1.2 - 3.4 /CUMM) 0.8 L Absolute Monocytes (0.10 - 0.60 /CUMM) 0.1 Absolute Eosinophils (0.0 - 0.7 /CUMM) 0 Absolute Basophils (0.0 - 0.2 /CUMM) 0 Toxicology Serum Alcohol (<10 MG/DL) < 10.0 Imaging/Other Studies: 02/04/18: EKG- SB @ 57, nl axis, DC .20, no ischemic change. 02/04/18: CT ABDOMEN AND PELVIS WITHOUT IV CONTRAST (*per Krishna CARRENO, limited study w/o IV cont)- Prominent inflammatory changes surrounding the pancreas with edematous appearance of the pancreas. This is suggestive of acute pancreatitis. No PD dilitation. Post CCKY with postop CBD 1.3 cm (chronic), no filling defect. Stable ectatic appearance of the left common iliac artery. Normal AP. No hernia. DJD. 02/04/18: US ABDOMEN COMPLETE- 1. Edematous pancreas with peripancreatic fluid, consistent with acute pancreatitis. 2. The pancreatic head and portions of the tail are not visualized. 3. Intra and extrahepatic ductal dilatation is seen. Common bile duct measuring up to 1 cm. Findings may at least in part be related to the patient's postcholecystectomy state with similar appearance seen on older CT scan from 07/11/2017, at which time, no evidence of acute pancreatitis was seen. In the visualized portions of the common bile duct on today's exam, no filling defect is seen. Distal most CBD is, however, not visualized. Close clinical correlation is requested. 4. Status post cholecystectomy. *Unfortunately, no MRCP available at [facility] on Tuesdays, prohibiting this on . 02/05/18: XRY-CHEST XRAY, TWO VIEWS- No acute cardiopulmonary process. 02/05/18: *MR ABDOMEN WITHOUT CONTRAST/MRCP (*personally reviewed by myself with Dr. Payne, of [facility], on 02/05/18). 1. Acute interstitial pancreatitis is seen with pancreatic parenchymal edema and peripancreatic soft tissue edema and stranding. Associated circumferential wall thickening in the duodenum and proximal jejunum is seen, consistent with sympathetic changes to the pancreatic inflammation. Normal PD. No pancreas divisum. No pseudocyst or abscess. 2. No evidence of variant ductal anatomy. No definite pancreatic head mass seen on noncontrast study. 3. Mild intrahepatic ductal dilatation and moderate extrahepatic ductal dilatation to 1 cm is seen. There is smooth tapering of the common bile duct to 0.4 cm in the preampullary region with no evidence of choledocholithiasis. Findings may be related to the patient's postcholecystectomy state. 4. A few scattered bilateral renal cysts are incidentally seen. *MRCP was personally reviewed with Dr. Payne, of [facility], on . The CBD was clean. There was no evidence of choledocholithiasis. A mild dilated IHT and CBD of 1 cm, tapering down to 4 mm in the periampullary region were chronic in nature, comparing prior studies, post CCKY. *Unfortunately, the admission CT obtained by the ER was done without IV contrast, limiting better visualization of the pancreas.
[2018-02-06 22:44] VITALS: BP 129/84
--- NOTE | 2018-02-07 00:47 | Event Note ---
See Addendum Event Note Event Note: Notified by RN patient on multiple opiod medications and still complaining of 8- 10 pain. I went to see the patient to discuss his pain and the management of that pain. He denies any h/o IV drug use or illicit drug history. He states the pain medication 'is not working'. He is currently in 5/10 pain. He reports RLQ abdominal pain that radiates to his groin. He endorses dysuria and dark urine. He also states he has worsening of abdominal pain with PO liquid intake. We discussed placing him back on NPO status and he is in agreement with this plan. He states he is passing flatus but has not had a BM since 02/03. He does report feeling slightly better when he is laying on his back with his knees flexed. I have looked over his chart. He is receiving Roxicodone 5mg Q6hrs PRN; Morphine 4mg Q4hrs PRN; Dilaudid 0.8mg Q3hr PRN. He is requiring all of these medications every time they are available. He has not had a UA on this admission so I will order one to assess dark urine and dysuria (patient with h/o renal stones)Of note: CT abd/pelv on admission showed no renal stones. Plan: -Will try Toradol 30mg IV for pain control one time dose since multiple opiods are not working. If patient gets relief with this; will deescalate opiod regimen -UA to rule out infection -Change patient back to NPO and hydrate with IV LR @100cc/hr -Added Colace to bowel care regimen; now Senna/colace since last BM 02/03 and constipation can add to abdominal discomfort
[2018-02-07 06:50] VITALS: BP 148/88
--- NOTE | 2018-02-07 08:23 | PN- Housestaff ---
Subjective Follow-up For: PANCREATITIS Subjective: Patient continues to be in 7-8/10 pain. Overnight he was weaned from dilaudid and his diet was stopped. He stated that he had abdominal pain with the clear liquid diet. He denies any nausea vomiting diarrhea. Has not had BM since the . Is currently on Senna S. Review of Systems Constitutional: Reports: no symptoms. EENTM: Reports: no symptoms. Cardiovascular: Reports: no symptoms. Respiratory: Reports: no symptoms. Gastrointestinal: Reports: abdominal pain. Genitourinary: Reports: see HPI. Musculoskeletal: Reports: no symptoms. Skin: Reports: no symptoms. Objective Last 24 Hrs of Vital Signs/I&O Vital Signs Date Time Temp Pulse Resp B/P B/P Pulse O2 O2 Flow FiO2 Mean Ox Delivery Rate 02/07 2141 98.4 78 19 130/80 98 Room Air 02/07 1400 99.3 70 18 1138/78 96 Room Air 02/07 0650 97.5 78 20 148/88 97 Room Air Intake & Output 02/07 1600 02/07 0800 02/07 0000 Intake Total 700 870 160 Output Total 650 800 200 Balance 50 70 -40 Intake, IV 700 630 40 Intake, Oral 240 120 Number 0 0 Bowel Movements Output, Urine 650 800 200 Physical Exam General Appearance: Alert, Oriented X3, Cooperative, Mild Distress Skin: No Rashes Skin Temp/Moisture Exam: Warm/Dry Sepsis Skin Exam (color): Normal for Ethnicity HEENT: Atraumatic Cardiovascular: Regular Rate, Normal S1, Normal S2, No Murmurs Lungs: Clear to Auscultation, Normal Air Movement Abdomen: Normal Bowel Sounds, Soft, No Hepatospenomegaly Neurological: Normal Speech Extremities: No Clubbing, No Cyanosis, No Edema, Normal Pulses Current Medications: Current Medications Sig/Oz Start time Last Medication Dose Route Stop Time Status Admin Docusate Sodium 100 MG DAILY NEEDED PRN 02/07 0045 DC PO Heparin Sodium 5,000 UNIT Q8 02/04 0600 AC 02/08 (Porcine) SC 0546 Hydromorphone HCl 0 .STK-MED ONE 02/076 DC .ROUTE Hydromorphone HCl 0.4 MG ONCE ONE 02/07 2245 DC 02/07 IV 02/07 2246 2308 Hydromorphone HCl 0.4 MG ONCE ONE 02/07 2230 CAN IM 02/07 2231 Ketorolac 0 .STK-MED ONE 02/08 0241 DC Tromethamine .ROUTE Ketorolac 0 .STK-MED ONE 02/07 1829 DC Tromethamine .ROUTE Ketorolac 0 .STK-MED ONE 02/07 1246 DC Tromethamine .ROUTE Ketorolac 30 MG Q6P PRN 02/07 0200 AC 02/08 Tromethamine IV 0240 Lactated Ringer's 1,000 ML .Q10H 02/07 0030 DC 02/07 IV 02/07 202 1055 Morphine Sulfate 2 MG Q3P PRN 02/07 1445 AC 02/07 IV 2029 Morphine Sulfate 4 MG Q4P PRN 02/04 0330 DC 02/07 IV 1425 Nicotine 7 MG DAILY 02/04 0900 AC 02/08 TOP 0847 Omeprazole 40 MG DAILY AC 02/07 0700 AC 02/08 PO 0546 Ondansetron HCl 4 MG Q6P PRN 02/04 0245 AC 02/04 IV 1858 Oxycodone HCl 5 MG Q6P PRN 02/04 0800 AC 02/08 PO 0551 Patient Medication 1 ED ONE ONE 02/07 1500 DC Teaching ED 02/07 1501 Polyethylene Glycol 17 GM DAILY 02/07 1437 AC 02/07 PO 1453 Potassium Chloride 0 .STK-MED ONE 02/07 1451 DC PO Potassium Chloride 40 MEQ ONCE ONE 02/07 1445 DC 02/07 PO 02/07 1446 1453 Senna/Docusate Sodium 2 TAB DAILY 02/06 1028 AC 02/07 PO 0846 Last 24 Hrs of Lab/Steven Results Last 24 Hrs of Labs/Mics: Laboratory Tests 02/08/18 0730: CBC w Diff Pending, WBC Pending, RBC Pending, Hgb Pending, Hct Pending, MCV Pending, MCH Pending, MCHC Pending, RDW Pending, Plt Count Pending, MPV Pending, Gran % Pending, Lymphocytes % Pending, Monocytes % Pending, Eosinophils % Pending, Basophils % Pending, Absolute Granulocytes Pending, Absolute Lymphocytes Pending, Absolute Monocytes Pending, Absolute Eosinophils Pending, Absolute Basophils Pending Assessment/Plan Assessment: Mr. Bynum is a 52yo M w/ PMH of diverticulitis, kidney stones s/p lithotripsy, gallstones s/p cholecystectomy, s/p Pippa procedure w/ temporary colostomy followed by revision in 2016, s/p hernia repair, reversible ischemia on nuclear stress test status post cardiac cath recently in 2014 presented to [facility] w/ N/V/D/severe intermittent ab pain since 1pm of 02/03/2018, endorseed loose BM x 1 on 02/03 but none since, w/ intermittent non-bloody vomiting, mostly foods. During our clinical interaction, patient denied recent travel/sick contacts, fever/lightheadedness/diaphoresis/night sweat/weight change/cough/SOB/Chest Pain /urinary abnormality, or other skin/musculoskeletal/neurological/mood disorders, or dietary/appetite change. -Smoking: active smoker 30ppy -Alcohol: denied -Drugs: denied On admission, Vitals: stable afebrile, HTN 218/97 Physical exam as above. Pertinent findings include acute distress 2/2 pain w/ HTN on monitor, and epigastric and LLQ ab pain on palpation, decreased BS. Limited exam due to pain. -CBC: mild leukocytosis 11.5, otherwise WNL -CMP: WNl except Amylase/Lipase 3643/>64576, Tb/DB 2.4/1.4, AST/ALT 266/219, ALKP 196, trop -ve x [address]: Prominent inflammatory changes surrounding the pancreas with edematous appearance of the pancreas. This is suggestive of acute pancreatitis. -Stable ectatic appearance of the left common iliac artery. Abdominal ultrasound: 1. Edematous pancreas with peripancreatic fluid, consistent with acute pancreatitis. 2. The pancreatic head and portions of the tail are not visualized. 3. Intra and extrahepatic ductal dilatation is seen. Common bile duct measuring up to 1 cm. Findings may at least in part be related to the patient's postcholecystectomy state with similar appearance seen on older CT scan from 07/11/2017, at which time, no evidence of acute pancreatitis was seen. In the visualized portions of the common bile duct on today's exam, no filling defect is seen. Distal most CBD is, however, not visualized. Close clinical correlation is requested. 4. Status post cholecystectomy. -EKG: NSR w/o significant ST-T abnormalities, unchanged from previous. -Last Echo: 2011 by Wade, stage 2 diastolic dysfunction -Interventions in ER: NS bolus x 1, Morphine 6mg IV x 2, ZOfran IV x 1 Problem list/Assessment/Hospital Course: #Acute pancreatitis, unclear etiology currently #Transaminitis/Elev AlkP, likely reactive #R/o Biliary causes (choledocolithiasis, etc) #Active smoker #PMHx as above -Patient admitted to general medicine floors for evaluation and treatment -Vitals per protocol, monitor I&O per protocol. -Appreciate GI consult, patient was initially started on lactated Ringer's rate to 250 cc/h. LDH was done as per GI and was 799, CRP sent for prognostic purposes which was elevated. Chest x-ray done to evaluate for pleural effusion showed no evidence. No evidence of hemoconcentration which would be a poor prognostic indicator. Patient had MRCP done ywhich did not show any evidence of stone but did show dilated ducts. It is likely that the stone already passed. Patient however continues to have severe pain and is on 2 different narcotics, now has been weaned, dilaudid removed. We will attempt to wean these medications. We will refer the patient to Dr. Navarrete for follow-up with endoscopic ultrasound at [place]. Amylase and lipase have decreased but LFTs have remained elevated, total bili is stable high and direct bili has increased . We will continue to trend these. We have switched IV Protonix to by mouth. The patient has been put on a clear liquid diet today again after being DC'd last night and if he is tolerating well, we will advance. He is currently not on any antibiotics as there is no evidence of cholecystitis. Patient continues to be afebrile. Patient has a history of renal stones but on CT abd pelvis on admission, no evidence stone. If pain continues we will consider repeat/renal US. Patient does have dark urine despite being on LR now 100cc/hr. -Continue home meds -Repleted potassium today as his potassium level was 3.6 -Nicotine patch PRN. -Trend BEP/LFTs -Pain per pathway w/ IV Morphine/Dilaudid PRN with tapering. -Senna S for constipation as patient has not had a bowel movement since last week. DVT prophylaxis Lovenox + ALPS NPO Full Code Problem List: 1. Pancreatitis, acute Pain Ratin Pain Location: abdominal Pain Goal: Pain 4 or less Pain Plan: morphine and toradoll Tomorrow's Labs & Rationales: none
--- NOTE | 2018-02-07 10:48 | PN- Att Addend ---
Attending Addendum Attending Brief Note Patient sitting in the chair. Looks a little better. The pain may be a little less today. Vital signs are stable no fever. No major changes on physical examination. Potassium today is 3.6. Will check with GI see if we can restart some clear liquids and slowly advance the diet. Make sure patient gets out of bed and moves around. Continue pain management Intake & Output 02/07 1600 02/07 0400 02/06 1600 02/06 0400 02/05 1600 02/05 0400 Intake Total 206 919 3251 3600 450 Output Total 800 521 956 1583 Balance 70 -40 500 1250 450 Intake, IV 630 40 500 3600 450 Intake, Oral 240 120 650 Number 0 0 0 Bowel Movements Output, Urine 800 612 902 7010 Patient 211 lb 210 lb Weight Weight Reported by Patient Measurement Method Current Medications Sig/Oz Start time Last Medication Dose Route Stop Time Status Admin Docusate Sodium 100 MG DAILY NEEDED PRN 02/07 0045 DC PO Heparin Sodium 5,000 UNIT Q8 02/04 06 02/07 (Porcine) SC 0616 Hydromorphone HCl 0.8 MG Q3P PRN 02/04 1845 DC 02/06 IV 2005 Ketorolac 0 .STK-MED ONE 02/07 0612 DC Tromethamine .ROUTE Ketorolac 30 MG Q6P PRN 02/07 0200 02/07 Tromethamine IV 0615 Ketorolac 0 .STK-MED ONE 02/07 0033 DC Tromethamine .ROUTE Ketorolac 30 MG ONCE ONE 02/07 0030 DC 02/07 Tromethamine IV 02/07 0031 0033 Lactated Ringer's 1,000 ML .Q10H 02/07 0030 AC 02/07 IV 02/07 2029 0049 Morphine Sulfate 4 MG Q4P PRN 02/04 0330 AC 02/07 IV 0921 Nicotine 7 MG DAILY 02/04 09 02/07 TOP 0846 Omeprazole 40 MG DAILY AC 02/07 0700 AC 02/07 PO 0615 Ondansetron HCl 4 MG Q6P PRN 02/04 0245 AC 02/04 IV 1858 Oxycodone HCl 5 MG Q6P PRN 02/04 0800 AC 02/07 PO 0451 Pantoprazole Sodium 40 MG DAILY 02/05 09 DC 02/06 IV 0958 Patient Medication 1 ED ONE ONE 02/06 1700 [facility] ED 02/06 1701 Potassium Chloride 40 MEQ ONCE ONE 02/06 1430 DC 02/06 PO 02/06 1431 1453 Senna/Docusate Sodium 2 TAB DAILY 02/06 1028 AC 02/07 PO 0846 Laboratory Tests 02/07/18 0701: Anion Gap 8, Estimated GFR > 60, BUN/Creatinine Ratio 35.0 H, Total Bilirubin 1.7 H, Direct Bilirubin 0.8 H, AST 21, ALT 42, Alkaline Phosphatase 76, Total Protein 5.6 L, Albumin 2.8 L 02/07/18 0430: Urine Color MARCELINO, Urine Clarity HAZY H, Urine pH 6.5, Ur Specific [place] 1.020, Urine Protein 30 H, Urine Ketones NEG, Urine Nitrite NEG, Urine Bilirubin POS@ICTO H, Urine Urobilinogen 2.0 H, Ur Leukocyte Esterase NEG, Ur Microscopic SEDIMENT EXAMINED, Urine RBC 5-10 H, Urine WBC 1-3 H, Ur Epithelial Cells FEW, Urine Bacteria FEW H, Urine Mucus FEW, Urine Hemoglobin SMALL H, Urine Glucose NEG 02/06/18 0630: Anion Gap 7, Estimated GFR > 60, BUN/Creatinine Ratio 34.3 H, Total Bilirubin 1.7 H, Direct Bilirubin 0.7 H, AST 26, ALT 63, Alkaline Phosphatase 88, Total Protein 5.7 L, Albumin 2.9 L, Amylase 195 H, Lipase 568 H, CBC w Diff NO MAN DIFF REQ, RBC 5.04, MCV 91.3, MCH 31.7 H, MCHC 34.7, RDW 14.3, MPV 8.6, Gran % 88.8 H, Lymphocytes % 5.6 L, Monocytes % 5.5, Eosinophils % 0.1, Basophils % 0 , Absolute Granulocytes 10.7 H, Absolute Lymphocytes 0.7 L, Absolute Monocytes 0.7 H, Absolute Eosinophils 0, Absolute Basophils 0 02/05/18 0715: Anion Gap 7, Estimated GFR > 60, BUN/Creatinine Ratio 27.5 H, Total Bilirubin 1.4 H, Direct Bilirubin 0.5 H, AST 40, ALT 100 H, Alkaline Phosphatase 117, C -Reactive Prot, Quant > 9.0 H, Total Protein 6.4, Albumin 3.4 L, PT 15.6 H, INR 1.43 H, CBC w Diff NO MAN DIFF REQ, RBC 5.60, MCV 90.9, MCH 30.9, MCHC 34.0 , RDW 14.3, MPV 8.4, Gran % 91.3 H, Lymphocytes % 4.7 L, Monocytes % 3.7, Eosinophils % 0.1, Basophils % 0.2, Absolute Granulocytes 14.4 H, Absolute Lymphocytes 0.7 L, Absolute Monocytes 0.6, Absolute Eosinophils 0, Absolute Basophils 0 Vital Signs Date Time Temp Pulse Resp B/P B/P Pulse O2 O2 Flow FiO2 Mean Ox Delivery Rate 02/07 0650 97.5 78 20 148/88 97 Room Air 02/06 2244 98.6 80 17 129/84 98 Room Air 02/06 1405 95.5 80 20 138/80 93 Room Air
[2018-02-07 14:00] VITALS: BP 1138/78
--- NOTE | 2018-02-07 14:25 | PN- Gastroenterology ---
Assessment/Plan GI Assessment/Recommendations: ASSESSMENT: 1. Acute Pancreatitis 2. Constipation 3. S/P Cholecystectomy RECOMMENDATIONS: 1. Continue Sennokot. Would add Miralax to patient's daily regimen and if no BM by tomorrow would give magnesium citrate. 2. Wean from narcotics. Subjective Subjective: Patient complains of 5 of 10 abdominal pain. Has not had a bowel movement. I reviewed notes from medical team who are attempting to de-escalate narcotic use. Patient just started on Senokot today. If no bowel movement would consider adding twice daily MiraLAX to patient's regimen as well as possible use of magnesium citrate. Objective Vital Signs and I&Os Vital Signs Date Time Temp Pulse Resp B/P B/P Pulse O2 O2 Flow FiO2 Mean Ox Delivery Rate 02/07 0650 97.5 78 20 148/88 97 Room Air 02/06 2244 98.6 80 17 129/84 98 Room Air Intake & Output 02/07 1600 02/07 0400 02/06 1600 02/06 0400 02/05 1600 02/05 0400 Intake Total 151 623 9124 3600 450 Output Total 800 071 302 5594 Balance 70 -40 500 1250 450 Intake, IV 630 40 500 3600 450 Intake, Oral 240 120 650 Number 0 0 0 Bowel Movements Output, Urine 800 919 412 5189 Patient 211 lb 210 lb Weight Weight Reported by Patient Measurement Method Physical Exam General Appearance: well developed/nourished, mild distress Head: atraumatic Ears, Nose, Throat: hearing grossly normal Neck: full range of motion Respiratory: lungs clear Cardiovascular: regular rate/rhythm, Normal S1 and S2, without rub, mumrur, and gallop Abdomen: normal bowel sounds, soft, non-tender, no organomegaly Extremities: no edema Neurologic/Psychiatric: no motor/sensory deficits, awake, alert, oriented x 3 Skin: intact, normal color, warm/dry Current Medications: Current Medications Sig/Oz Start time Last Medication Dose Route Stop Time Status Admin Docusate Sodium 100 MG DAILY NEEDED PRN 02/07 0045 DC PO Heparin Sodium 5,000 UNIT Q8 02/04 0600 AC 02/07 (Porcine) SC 1411 Hydromorphone HCl 0.8 MG Q3P PRN 02/04 1845 DC 02/06 IV 2005 Ketorolac 0 .STK-MED ONE 02/07 1246 DC Tromethamine .ROUTE Ketorolac 0 .STK-MED ONE 02/07 0612 DC Tromethamine .ROUTE Ketorolac 30 MG Q6P PRN 02/07 0200 AC 02/07 Tromethamine IV 1245 Ketorolac 0 .STK-MED ONE 02/07 0033 DC Tromethamine .ROUTE Ketorolac 30 MG ONCE ONE 02/07 0030 DC 02/07 Tromethamine IV 02/07 0031 0033 Lactated Ringer's 1,000 ML .Q10H 02/07 0030 AC 02/07 IV 02/07 2029 1055 Morphine Sulfate 4 MG Q4P PRN 02/04 0330 AC 02/07 IV 0921 Nicotine 7 MG DAILY 02/04 0900 AC 02/07 TOP 0846 Omeprazole 40 MG DAILY AC 02/07 0700 AC 02/07 PO 0615 Ondansetron HCl 4 MG Q6P PRN 02/04 0245 AC 02/04 IV 1858 Oxycodone HCl 5 MG Q6P PRN 02/04 0800 AC 02/07 PO 1057 Pantoprazole Sodium 40 MG DAILY 02/05 0900 DC 02/06 IV 0958 Patient Medication 1 ED ONE ONE 02/06 1700 DC Teaching ED 02/06 1701 Potassium Chloride 40 MEQ ONCE ONE 02/06 1430 DC 02/06 PO 02/06 1431 1453 Senna/Docusate Sodium 2 TAB DAILY 02/06 1028 AC 02/07 PO 0846 Results Pertinent Lab Results: Laboratory Tests 02/07 02/07 0701 0430 Chemistry Sodium (137 - 145 mmol/L) 133 L Potassium (3.5 - 5.1 mmol/L) 3.6 Chloride (98 - 107 mmol/L) 101 Carbon Dioxide (22 - 30 mmol/L) 25 Anion Gap (5 - 16) 8 BUN (9 - 20 mg/dL) 21 H Creatinine (0.7 - 1.2 mg/dL) 0.6 L Estimated GFR (>60 ml/min) > 60 BUN/Creatinine Ratio (7 - 25 %) 35.0 H Total Bilirubin (0.2 - 1.3 mg/dL) 1.7 H Direct Bilirubin (< 0.4 mg/dL) 0.8 H AST (17 - 59 U/L) 21 ALT (21 - 72 U/L) 42 Alkaline Phosphatase (< 127 U/L) 76 Total Protein (6.3 - 8.2 g/dL) 5.6 L Albumin (3.5 - 5.0 g/dL) 2.8 L Urines Urine Color (YEL,AMB,STR) MARCELINO Urine Clarity (CLEAR) HAZY H Urine pH (5.0 - 8.0) 6.5 Ur Specific [place] (1.001 - 1.035) 1.020 Urine Protein (NEG,<30 MG/DL) 30 H Urine Ketones (NEG) NEG Urine Nitrite (NEG) NEG Urine Bilirubin (NEG) POS@ICTO H Urine Urobilinogen (0.1 - 1.0 EU/dl) 2.0 H Ur Leukocyte Esterase (NEG) NEG Ur Microscopic SEDIMENT EXAMINED Urine RBC (0 - 5 /HPF) 5-10 H Urine WBC (0 - 2 /HPF) 1-3 H Ur Epithelial Cells (NONE,FEW) FEW Urine Bacteria (NEG/NONE) FEW H Urine Mucus (FEW,NONE) FEW Urine Hemoglobin (NEG) SMALL H Urine Glucose (N MG/DL) NEG 02/06 02/05 0630 0715 Chemistry Sodium (137 - 145 mmol/L) 134 L 135 L Potassium (3.5 - 5.1 mmol/L) 3.6 3.4 L Chloride (98 - 107 mmol/L) 103 102 Carbon Dioxide (22 - 30 mmol/L) 24 26 Anion Gap (5 - 16) 7 7 BUN (9 - 20 mg/dL) 24 H 22 H Creatinine (0.7 - 1.2 mg/dL) 0.7 0.8 Estimated GFR (>60 ml/min) > 60 > 60 BUN/Creatinine Ratio (7 - 25 %) 34.3 H 27.5 H Total Bilirubin (0.2 - 1.3 mg/dL) 1.7 H 1.4 H Direct Bilirubin (< 0.4 mg/dL) 0.7 H 0.5 H AST (17 - 59 U/L) 26 40 ALT (21 - 72 U/L) 63 100 H Alkaline Phosphatase (< 127 U/L) 88 117 C-Reactive Prot, Quant (<1.0 mg/dL) > 9.0 H Total Protein (6.3 - 8.2 g/dL) 5.7 L 6.4 Albumin (3.5 - 5.0 g/dL) 2.9 L 3.4 L Amylase (30 - 110 U/L) 195 H Lipase (23 - 300 U/L) 568 H Coagulation PT (9.4 - 12.5 SEC) 15.6 H INR (0.90 - 1.17) 1.43 H Hematology CBC w Diff NO MAN DIFF REQ NO MAN DIFF REQ WBC (4.8 - 10.8 /CUMM) 12.1 H 15.7 H RBC (4.70 - 6.10 /CUMM) 5.04 5.60 Hgb (14.0 - 18.0 G/DL) 15.9 17.3 Hct (42 - 52 %) 46.0 50.9 MCV (80.0 - 94.0 FL) 91.3 90.9 MCH (27.0 - 31.0 PG) 31.7 H 30.9 MCHC (33.0 - 37.0 G/DL) 34.7 34.0 RDW (11.5 - 14.5 %) 14.3 14.3 Plt Count (130 - 400 /CUMM) 166 215 MPV (7.4 - 10.4 FL) 8.6 8.4 Gran % (42.2 - 75.2 %) 88.8 H 91.3 H Lymphocytes % (20.5 - 51.1 %) 5.6 L 4.7 L Monocytes % (1.7 - 9.3 %) 5.5 3.7 Eosinophils % (0 - 5 %) 0.1 0.1 Basophils % (0.0 - 2.0 %) 0 0.2 Absolute Granulocytes (1.4 - 6.5 /CUMM) 10.7 H 14.4 H Absolute Lymphocytes (1.2 - 3.4 /CUMM) 0.7 L 0.7 L Absolute Monocytes (0.10 - 0.60 /CUMM) 0.7 H 0.6 Absolute Eosinophils (0.0 - 0.7 /CUMM) 0 0 Absolute Basophils (0.0 - 0.2 /CUMM) 0 0
[2018-02-07 21:41] VITALS: BP 130/80
[2018-02-08 07:01] VITALS: BP 120/70
[2018-02-08 08:39] LABS: ABSOLUTE BASOPHIL COUNT 0 /CUMM (0.0-0.2); ABSOLUTE GRANULOCYTE CT 6.6 /CUMM (1.4-6.5); ABSOLUTE LYMPH COUNT 0.6 /CUMM (1.2-3.4); ABSOLUTE MONOCYTE COUNT 0.7 /CUMM (0.10-0.60); BASOPHIL % 0.1 % (0.0-2.0)
[2018-02-08 09:01] LABS: ABSOLUTE EOSINOPHIL COUNT 0.1 /CUMM (0.0-0.7); EOSINOPHIL % 0.7 % (0-5); MEAN CORPUSCULAR HGB 31.2 PG (27.0-31.0); MEAN CORPUSCULAR HGB CONC 34.5 G/DL (33.0-37.0); MEAN CORPUSCULAR VOLUME 90.3 FL (80.0-94.0); MEAN PLATELET VOLUME 8.8 FL (7.4-10.4); PLATELET COUNT 181 /CUMM (130-400); RBC DISTRIBUTION WIDTH 13.8 % (11.5-14.5); RED BLOOD CELL CT 4.44 /CUMM (4.70-6.10); WHITE BLOOD CELL COUNT 7.9 /CUMM (4.8-10.8)
[2018-02-08 09:05] LABS: HEMATOCRIT 40.1 % (42-52)
--- NOTE | 2018-02-08 09:36 | PN- Housestaff ---
See Addendum Subjective Follow-up For: Pancreatitis Subjective: Patient states that he feels slightly better in terms of pain today. He states that his pain as a 5/10. He has been tolerating his clear diet. The patient had a bowel movement for the first time in 5 days yesterday. Vitals are stable. Review of Systems Constitutional: Reports: no symptoms. Cardiovascular: Reports: no symptoms. Respiratory: Reports: no symptoms. Gastrointestinal: Reports: abdominal pain. Genitourinary: Reports: no symptoms. Musculoskeletal: Reports: no symptoms. Skin: Reports: no symptoms. Objective Last 24 Hrs of Vital Signs/I&O Vital Signs Date Time Temp Pulse Resp B/P B/P Pulse O2 O2 Flow FiO2 Mean Ox Delivery Rate 02/08 1423 98.8 73 18 115/74 97 Room Air 02/08 0701 98.7 68 19 120/70 97 02/07 2141 98.4 78 19 130/80 98 Room Air Intake & Output 02/08 1600 02/08 0800 02/08 0000 Intake Total 550 240 240 Output Total 500 200 Balance 50 240 40 Intake, Oral 550 240 240 Output, Urine 500 200 Patient 211 lb Weight Physical Exam General Appearance: Alert, Oriented X3, Cooperative, No Acute Distress Skin: No Rashes Sepsis Skin Exam (color): Normal for Ethnicity HEENT: Atraumatic, EOMI, Mucous Membr. moist/pink Neck: Supple, No JVD Cardiovascular: Regular Rate, Normal S1, Normal S2, No Murmurs Lungs: Clear to Auscultation Abdomen: Normal Bowel Sounds, Soft, No Hepatospenomegaly, No Masses Neurological: Normal Speech Extremities: No Clubbing, No Cyanosis, No Edema, Normal Pulses Current Medications: Current Medications Sig/Oz Start time Last Medication Dose Route Stop Time Status Admin Heparin Sodium 5,000 UNIT Q8 02/04 0600 AC 02/08 (Porcine) SC 1334 Hydromorphone HCl 0 .STK-MED ONE 02/08 1409 DC .ROUTE Hydromorphone HCl 0.4 MG ONCE ONE 02/08 1400 DC 02/08 IV 02/08 1401 1409 Hydromorphone HCl 0 .STK-MED ONE 02/07 2306 DC .ROUTE Hydromorphone HCl 0.4 MG ONCE ONE 02/07 2245 DC 02/07 IV 02/07 2246 2308 Hydromorphone HCl 0.4 MG ONCE ONE 02/07 2230 CAN IM 02/07 223 Ketorolac 0 .STK-MED ONE 02/08 0930 DC Tromethamine .ROUTE Ketorolac 0 .STK-MED ONE 02/08 0927 DC Tromethamine .ROUTE Ketorolac 0 .STK-MED ONE 02/08 0241 DC Tromethamine .ROUTE Ketorolac 0 .STK-MED ONE 02/07 1829 DC Tromethamine .ROUTE Ketorolac 30 MG Q6P PRN 02/07 0200 02/08 Tromethamine IV 0929 Lactated Ringer's 1,000 ML .Q10H 02/07 0030 DC 02/07 IV 02/07 2029 1055 Morphine Sulfate 1 MG Q6P PRN 02/08 1245 IV Morphine Sulfate 1 MG Q4 HRS NEEDED PRN 02/08 1145 DC IV Morphine Sulfate 2 MG Q3P PRN 02/07 1445 DC 02/08 IV 1044 Nicotine 7 MG DAILY 02/04 0900 02/08 TOP 0847 Omeprazole 40 MG DAILY AC 02/07 0700 02/08 PO 0546 Ondansetron HCl 4 MG Q6P PRN 02/04 0245 AC 02/04 IV 1858 Oxycodone HCl 5 MG Q6P PRN 02/04 0800 02/08 PO 1156 Polyethylene Glycol 17 GM DAILY 02/07 1437 AC 02/07 PO 1453 Senna/Docusate Sodium 2 TAB DAILY 02/06 1028 AC 02/07 PO 0846 Last 24 Hrs of Lab/Steven Results Last 24 Hrs of Labs/Mics: Laboratory Tests 02/08/18 0730: CBC w Diff NO MAN DIFF REQ, RBC 4.44 L, MCV 90.3, MCH 31.2 H, MCHC 34.5, RDW 13.8, MPV 8.8, Gran % 82.8 H, Lymphocytes % 8.1 L, Monocytes % 8.3, Eosinophils % 0.7, Basophils % 0.1, Absolute Granulocytes 6.6 H, Absolute Lymphocytes 0.6 L, Absolute Monocytes 0.7 H, Absolute Eosinophils 0.1, Absolute Basophils 0 Assessment/Plan Assessment: Mr. Bynum is a 52yo M w/ PMH of diverticulitis, kidney stones s/p lithotripsy, gallstones s/p cholecystectomy, s/p Pippa procedure w/ temporary colostomy followed by revision in 2016, s/p hernia repair, reversible ischemia on nuclear stress test status post cardiac cath recently in 2014 presented to [facility] w/ N/V/D/severe intermittent ab pain since 1pm of 02/03/2018, endorseed loose BM x 1 on 02/03 but none since, w/ intermittent non-bloody vomiting, mostly foods. During our clinical interaction, patient denied recent travel/sick contacts, fever/lightheadedness/diaphoresis/night sweat/weight change/cough/SOB/Chest Pain /urinary abnormality, or other skin/musculoskeletal/neurological/mood disorders, or dietary/appetite change. -Smoking: active smoker 30ppy -Alcohol: denied -Drugs: denied On admission, Vitals: stable afebrile, HTN 218/97 Physical exam as above. Pertinent findings include acute distress 2/2 pain w/ HTN on monitor, and epigastric and LLQ ab pain on palpation, decreased BS. Limited exam due to pain. -CBC: mild leukocytosis 11.5, otherwise WNL -CMP: WNl except Amylase/Lipase 3643/>37404, Tb/DB 2.4/1.4, AST/ALT 266/219, ALKP 196, trop -ve x [address]: Prominent inflammatory changes surrounding the pancreas with edematous appearance of the pancreas. This is suggestive of acute pancreatitis. -Stable ectatic appearance of the left common iliac artery. Abdominal ultrasound: 1. Edematous pancreas with peripancreatic fluid, consistent with acute pancreatitis. 2. The pancreatic head and portions of the tail are not visualized. 3. Intra and extrahepatic ductal dilatation is seen. Common bile duct measuring up to 1 cm. Findings may at least in part be related to the patient's postcholecystectomy state with similar appearance seen on older CT scan from 07/11/2017, at which time, no evidence of acute pancreatitis was seen. In the visualized portions of the common bile duct on today's exam, no filling defect is seen. Distal most CBD is, however, not visualized. Close clinical correlation is requested. 4. Status post cholecystectomy. -EKG: NSR w/o significant ST-T abnormalities, unchanged from previous. -Last Echo: 2011 by Wade, stage 2 diastolic dysfunction -Interventions in ER: NS bolus x 1, Morphine 6mg IV x 2, ZOfran IV x 1 Problem list/Assessment/Hospital Course: #Acute pancreatitis, unclear etiology currently #Transaminitis/Elev AlkP, likely reactive #R/o Biliary causes (choledocolithiasis, etc) #Active smoker #PMHx as above -Patient admitted to general medicine floors for evaluation and treatment -Vitals per protocol, monitor I&O per protocol. -Appreciate GI consult, patient was initially started on lactated Ringer's rate to 250 cc/h. LDH was done as per GI and was 799, CRP sent for prognostic purposes which was elevated. Chest x-ray done to evaluate for pleural effusion showed no evidence. No evidence of hemoconcentration which would be a poor prognostic indicator. Patient had MRCP done ywhich did not show any evidence of stone but did show dilated ducts. It is likely that the stone already passed. Patient however continues to have severe pain and is on 2 different narcotics, now has been weaned, dilaudid removed. We will attempt to wean these medications. We will refer the patient to Dr. Navarrete for follow-up with endoscopic ultrasound at [place]. Amylase and lipase have decreased but LFTs have remained elevated, total bili is stable high and direct bili has increased. We will continue to trend these. We have switched IV Protonix to by mouth. The patient is currently on a clear liquid diet and tolerating well. He has had a bowel movement. He is currently not on any antibiotics as there is no evidence of cholecystitis. Patient continues to be afebrile. Patient has a history of renal stones but on CT abd pelvis on admission, no evidence stone. Patient's pain has decreased today at the time of interview but later in the day he complains of increased pain, was given a one-time small dose of Dilaudid. Patient had dark urine yesterday despite being on lactated Ringer's which has been DC'd as patient is tolerating his diet. He had a UA done which did not show any evidence of infection but did show bilirubin. -Attempt to advance diet to regular tomorrow and taper her pain meds with aim to stop narcotics. -Continue home meds -Repleted potassium -Nicotine patch PRN. -Trend LFTs -Pain per pathway w/ IV Morphine/Dilaudid PRN with tapering. DVT prophylaxis Lovenox + ALPS NPO Full Code Problem List: 1. Pancreatitis Pain Ratin Pain Location: Abdominal Pain Goal: Pain 4 or less Pain Plan: Toradol, morphine, Roxicodone Tomorrow's Labs & Rationales: LFTs
[2018-02-08 09:48] LABS: GRANULOCYTE % 82.8 % (42.2-75.2)
[2018-02-08] MEDS ORDERED: OMEPRAZOLE20 M2 PO (12:33)
--- NOTE | 2018-02-08 12:35 | Patient Discharge Instructions ---
Discharge Instructions General Discharge Information You were seen/treated for: smoldering pancreatitis with infected necrosis Infected pancreatic pseudocyts Failure to advance diet requiring Parenteral feeding (TPN) Transaminitis Hyponatremia cx showing enterobacter Special Instructions: 1. please follow up with pcp in one week 2. please follow up with Dr. Truong in 2 weeks Continue antibiotics based on gastroenterology recommendations. Continue TPN versus nasogastric/nasojejunal feeds based on patient's clinical status Diet Continue normal diet: Yes ( TOLERATED) Additional DIET Information: TPN Activity Full Activity/No Limits: Yes Acute Coronary Syndrome Inclusion Criteria At DC or during hospital stay patient has or had the following: ACS DIAGNOSIS No Discharge Core Measures Meds if any: Prescribed or Continued at Discharge Meds if any: NOT Prescribed or Continued at Discharge Congestive Heart Failure Inclusion Criteria At DC or during hospital stay patient has or had the following: CHF DIAGNOSIS No Discharge Core Measures Meds if any: Prescribed or Continued at Discharge Meds if any: NOT Prescribed or Continued at Discharge Cerebrovascular accident Inclusion Criteria At DC or during hospital stay patient has or had the following: CVA/TIA Diagnosis No Discharge Core Measures Meds if any: Prescribed or Continued at Discharge Meds if any: NOT Prescribed or Continued at Discharge Venous thromboembolism Inclusion Criteria VTE Diagnosis No VTE Type NONE VTE Confirmed by (Test) NONE Discharge Core Measures - Per Current guidelines, there needs to be overlap - treatment for the first 5 days of Warfarin therapy. - If discharged on Warfarin prior to 5 days of - overlap therapy, the patient will need to be - assessed for post discharge needs including - *Post discharge parental anticoagulation - *Warfarin and/or parental anticoagulation education - *Follow up date to check INR post discharge At least 5 days overlap therapy as Inpatient No Meds if any: Prescribed or Continued at Discharge Note: Overlap Therapy is Warfarin and Anticoagulant Meds if any: NOT Prescribed or Continued at Discharge
[2018-02-08 14:23] VITALS: BP 115/74; BP 132/79
[2018-02-08 21:52] VITALS: BP 134/70
[2018-02-09 06:57] VITALS: BP 145/85
--- NOTE | 2018-02-09 11:03 | PN- Pulmonary ---
Subjective HPI/Critical Care Issues: Patient complains of 5 of 10 abdominal pain. S/p BM now Has on and off back spasm Objective Current Medications: Current Medications Sig/Oz Start time Last Medication Dose Route Stop Time Status Admin Heparin Sodium 5,000 UNIT Q8 02/04 0600 AC 02/09 (Porcine) SC 0534 Hydromorphone HCl 0 .STK-MED ONE 02/08 1409 DC .ROUTE Hydromorphone HCl 0.4 MG ONCE ONE 02/08 1400 DC 02/08 IV 02/08 1401 1409 Ketorolac 0 .STK-MED ONE 02/09 0947 DC Tromethamine .ROUTE Ketorolac 30 MG ONE ONE 02/09 0930 DC 02/09 Tromethamine IV 02/09 0931 0947 Ketorolac 0 .STK-MED ONE 02/09 0900 CAN Tromethamine .ROUTE 02/09 0901 Ketorolac 0 .STK-MED ONE 02/09 0006 DC Tromethamine .ROUTE Ketorolac 0 .STK-MED ONE 02/08 1747 DC Tromethamine .ROUTE Ketorolac 30 MG Q6P PRN 02/07 0200 DC 02/09 Tromethamine IV 0005 Morphine Sulfate 1 MG Q6P PRN 02/08 1245 AC 02/09 IV 0534 Morphine Sulfate 1 MG Q4 HRS NEEDED PRN 02/08 1145 DC IV Morphine Sulfate 2 MG Q3P PRN 02/07 1445 DC 02/08 IV 1044 Nicotine 7 MG DAILY 02/04 0900 AC 02/09 TOP 0852 Omeprazole 40 MG DAILY AC 02/07 0700 AC 02/09 PO 0534 Ondansetron HCl 4 MG Q6P PRN 02/04 0245 AC 02/04 IV 1858 Oxycodone HCl 5 MG Q6P PRN 02/04 0800 AC 02/09 PO 0919 Polyethylene Glycol 17 GM BID 02/08 2100 DC PO Polyethylene Glycol 17 GM DAILY 02/07 1437 DC 02/07 PO 1453 Senna/Docusate Sodium 2 TAB DAILY 02/06 1028 AC 02/07 PO 0846 Vital Signs & I&O Last 24 Hrs of Vitals and I&O: Vital Signs Date Time Temp Pulse Resp B/P B/P Pulse O2 O2 Flow FiO2 Mean Ox Delivery Rate 02/09 0657 99.0 75 20 145/85 98 Room Air 02/08 2152 98.4 74 22 134/70 98 Room Air 02/08 1423 98.8 73 18 115/74 97 Room Air Intake & Output 02/09 1600 02/09 0800 02/09 0000 Intake Total 240 Output Total 200 Balance 240 -200 Intake, Oral 240 Number 0 Bowel Movements Output, Urine 200 Laboratory Tests 02/09 02/08 0715 0730 Chemistry Total Bilirubin (0.2 - 1.3 mg/dL) 1.3 Direct Bilirubin (< 0.4 mg/dL) 0.6 H AST (17 - 59 U/L) 21 ALT (21 - 72 U/L) 39 Alkaline Phosphatase (< 127 U/L) 90 Total Protein (6.3 - 8.2 g/dL) 5.6 L Albumin (3.5 - 5.0 g/dL) 2.8 L Hematology CBC w Diff NO MAN DIFF REQ WBC (4.8 - 10.8 /CUMM) 7.9 RBC (4.70 - 6.10 /CUMM) 4.44 L Hgb (14.0 - 18.0 G/DL) 13.9 L Hct (42 - 52 %) 40.1 L MCV (80.0 - 94.0 FL) 90.3 MCH (27.0 - 31.0 PG) 31.2 H MCHC (33.0 - 37.0 G/DL) 34.5 RDW (11.5 - 14.5 %) 13.8 Plt Count (130 - 400 /CUMM) 181 MPV (7.4 - 10.4 FL) 8.8 Gran % (42.2 - 75.2 %) 82.8 H Lymphocytes % (20.5 - 51.1 %) 8.1 L Monocytes % (1.7 - 9.3 %) 8.3 Eosinophils % (0 - 5 %) 0.7 Basophils % (0.0 - 2.0 %) 0.1 Absolute Granulocytes (1.4 - 6.5 /CUMM) 6.6 H Absolute Lymphocytes (1.2 - 3.4 /CUMM) 0.6 L Absolute Monocytes (0.10 - 0.60 /CUMM) 0.7 H Absolute Eosinophils (0.0 - 0.7 /CUMM) 0.1 Absolute Basophils (0.0 - 0.2 /CUMM) 0 Impression/Plan Impression/Plan Impression/Plan: General Appearance: well developed/nourished, mild distress Head: atraumatic Ears, Nose, Throat: hearing grossly normal Neck: full range of motion Respiratory: lungs clear Cardiovascular: regular rate/rhythm, Normal S1 and S2, without rub, mumrur, and gallop Abdomen: normal bowel sounds, soft, non-tender, no organomegaly Extremities: no edema Neurologic/Psychiatric: no motor/sensory deficits, awake, alert, oriented x 3 Skin: intact, normal color, warm/dry MRI 1. Acute interstitial pancreatitis is seen with pancreatic parenchymal edema and peripancreatic soft tissue edema and stranding. Associated circumferential wall thickening in the duodenum and proximal jejunum is seen, consistent with sympathetic changes to the pancreatic inflammation. 2. No evidence of variant ductal anatomy. No definite pancreatic head mass seen on noncontrast study. 3. Mild intrahepatic ductal dilatation and moderate extrahepatic ductal dilatation to 1 cm is seen. There is smooth tapering of the common bile duct to 0.4 cm in the preampullary region with no evidence of choledocholithiasis. Findings may be related to the patient's postcholecystectomy state. 4. A few scattered bilateral renal cysts are incidentally seen. IMPRESSION Acute pancreatitis with sig pain on narcotics Constipation/ now better REcent jas REC cont current rx, reduce narcotics/ increase activityu dc iv ketorolac for now Reduce narcotic Increase activty Advance diet will follow
[2018-02-09 14:58] VITALS: BP 139/96
--- NOTE | 2018-02-09 16:12 | PN- Gastroenterology ---
Assessment/Plan GI Assessment/Recommendations: ASSESSMENT: 1. Acute Pancreatitis 2. Constipation 3. S/P Cholecystectomy RECOMMENDATIONS: 1. Continue Sennokot. Miralax has been added to patient's daily regimen and if no BM would give magnesium citrate. 2. Wean from narcotics. 3. Would add Lyrica as a neuromodulator to increase threshold for abdominal pain 4. Advance diet 5. Encourage ambulation Subjective Subjective: Patient is tolerating a clear diet. He is still complaining of abdominal pain but is eager to eat. He is concerned about going home and the possibility that he may have pain at home. Objective Vital Signs and I&Os Vital Signs Date Time Temp Pulse Resp B/P B/P Pulse O2 O2 Flow FiO2 Mean Ox Delivery Rate 02/09 1458 99.4 70 20 139/96 98 Room Air 02/09 0657 99.0 75 20 145/85 98 Room Air 02/08 2152 98.4 74 22 134/70 98 Room Air Intake & Output 02/09 1600 02/09 0400 02/08 1600 02/08 0400 02/07 1600 02/07 0400 Intake Total 1100 409 562 7101 160 Output Total 400 200 571 406 6862 200 Balance 700 -200 290 40 120 -40 Intake, IV 20 1330 40 Intake, Oral 1080 790 240 240 120 Number 1 0 0 0 Bowel Movements Output, Urine 400 200 594 414 6560 200 Patient 211 lb Weight Physical Exam General Appearance: well developed/nourished, no apparent distress, alert, comfortable Respiratory: normal breath sounds, lungs clear Cardiovascular: regular rate/rhythm, Normal S1 and S2 without rub, murmur, or gallop Abdomen: normal bowel sounds, soft, non-tender Neurologic/Psychiatric: awake, alert, oriented x 3 Skin: intact, normal color, warm/dry Current Medications: Current Medications Sig/Oz Start time Last Medication Dose Route Stop Time Status Admin Heparin Sodium 5,000 UNIT Q8 02/04 0600 AC 02/09 (Porcine) SC 1452 Ketorolac 0 .STK-MED ONE 02/09 0947 DC Tromethamine .ROUTE Ketorolac 30 MG ONE ONE 02/09 0930 DC 02/09 Tromethamine IV 02/09 0931 0947 Ketorolac 0 .STK-MED ONE 02/09 0900 CAN Tromethamine .ROUTE 02/09 0901 Ketorolac 0 .STK-MED ONE 02/09 0006 DC Tromethamine .ROUTE Ketorolac 0 .STK-MED ONE 02/08 1747 DC Tromethamine .ROUTE Ketorolac 30 MG Q6P PRN 02/07 0200 DC 02/09 Tromethamine IV 0005 Morphine Sulfate 1 MG Q6P PRN 02/08 1245 AC 02/09 IV 1205 Nicotine 7 MG DAILY 02/04 0900 AC 02/09 TOP 0852 Omeprazole 40 MG DAILY AC 02/07 0700 AC 02/09 PO 0534 Ondansetron HCl 4 MG Q6P PRN 02/04 0245 AC 02/04 IV 1858 Oxycodone HCl 5 MG Q6P PRN 02/04 0800 AC 02/09 PO 1509 Polyethylene Glycol 17 GM BID 02/08 2100 DC PO Polyethylene Glycol 17 GM DAILY 02/07 1437 DC 02/07 PO 1453 Pregabalin 25 MG BID 02/09 1408 AC 02/09 PO 1452 Senna/Docusate Sodium 2 TAB DAILY 02/06 1028 AC 02/07 PO 0846 Results Pertinent Lab Results: Laboratory Tests 02/09 02/08 02/07 0715 0730 0701 Chemistry Sodium (137 - 145 mmol/L) 133 L Potassium (3.5 - 5.1 mmol/L) 3.6 Chloride (98 - 107 mmol/L) 101 Carbon Dioxide (22 - 30 mmol/L) 25 Anion Gap (5 - 16) 8 BUN (9 - 20 mg/dL) 21 H Creatinine (0.7 - 1.2 mg/dL) 0.6 L Estimated GFR (>60 ml/min) > 60 BUN/Creatinine Ratio (7 - 25 %) 35.0 H Total Bilirubin (0.2 - 1.3 mg/dL) 1.3 1.7 H Direct Bilirubin (< 0.4 mg/dL) 0.6 H 0.8 H AST (17 - 59 U/L) 21 21 ALT (21 - 72 U/L) 39 42 Alkaline Phosphatase (< 127 U/L) 90 76 Total Protein (6.3 - 8.2 g/dL) 5.6 L 5.6 L Albumin (3.5 - 5.0 g/dL) 2.8 L 2.8 L Hematology CBC w Diff NO MAN DIFF REQ WBC (4.8 - 10.8 /CUMM) 7.9 RBC (4.70 - 6.10 /CUMM) 4.44 L Hgb (14.0 - 18.0 G/DL) 13.9 L Hct (42 - 52 %) 40.1 L MCV (80.0 - 94.0 FL) 90.3 MCH (27.0 - 31.0 PG) 31.2 H MCHC (33.0 - 37.0 G/DL) 34.5 RDW (11.5 - 14.5 %) 13.8 Plt Count (130 - 400 /CUMM) 181 MPV (7.4 - 10.4 FL) 8.8 Gran % (42.2 - 75.2 %) 82.8 H Lymphocytes % (20.5 - 51.1 %) 8.1 L Monocytes % (1.7 - 9.3 %) 8.3 Eosinophils % (0 - 5 %) 0.7 Basophils % (0.0 - 2.0 %) 0.1 Absolute Granulocytes (1.4 - 6.5 /CUMM) 6.6 H Absolute Lymphocytes (1.2 - 3.4 /CUMM) 0.6 L Absolute Monocytes (0.10 - 0.60 /CUMM) 0.7 H Absolute Eosinophils (0.0 - 0.7 /CUMM) 0.1 Absolute Basophils (0.0 - 0.2 /CUMM) 0 08/17 0430 Urines Urine Color (YEL,AMB,STR) MARCELINO Urine Clarity (CLEAR) HAZY H Urine pH (5.0 - 8.0) 6.5 Ur Specific [place] (1.001 - 1.035) 1.020 Urine Protein (NEG,<30 MG/DL) 30 H Urine Ketones (NEG) NEG Urine Nitrite (NEG) NEG Urine Bilirubin (NEG) POS@ICTO H Urine Urobilinogen (0.1 - 1.0 EU/dl) 2.0 H Ur Leukocyte Esterase (NEG) NEG Ur Microscopic SEDIMENT EXAMINED Urine RBC (0 - 5 /HPF) 5-10 H Urine WBC (0 - 2 /HPF) 1-3 H Ur Epithelial Cells (NONE,FEW) FEW Urine Bacteria (NEG/NONE) FEW H Urine Mucus (FEW,NONE) FEW Urine Hemoglobin (NEG) SMALL H Urine Glucose (N MG/DL) NEG
[2018-02-09 20:15] VITALS: BP 142/78
--- NOTE | 2018-02-10 01:01 | CT SCAN REPORT ---
EXAMINATION: CT ABDOMEN AND PELVIS WITH CONTRAST CLINICAL INFORMATION: Abdominal pain and bilateral CVA tenderness. COMPARISON: Multiple prior exams are reviewed. The most recent is from February 05, 2018. TECHNIQUE: Contiguous axial thin section helical images of the abdomen and pelvis were performed following the administration of oral contrast and 95 mL of intravenous Optiray 320. The data set was reformatted in the coronal and sagittal planes and reviewed on an independent workstation. DLP: 898 mGy-cm. FINDINGS: There are right greater than left bilateral pleural effusions with associated passive airspace disease. There is a benign 5 mm calcified granuloma within the right lower lobe on image 35/824. The visualized portions of the heart are unremarkable. The liver is of normal size and attenuation without focal lesions. There is stable mild intrahepatic biliary ductal dilation in this patient status post cholecystectomy. The pancreas is edematous, increased from prior exam. There is surrounding low-attenuation fluid. This fluid extends into the left upper quadrant and the right paracolic gutter and right lower quadrant. There is no significant enhancement identified about this fluid focus. There are no demonstrable areas of pancreatic necrosis. The spleen and adrenal glands are unremarkable. Both kidneys are of normal size and attenuation without hydronephrosis or nephrolithiasis. Following the administration of IV contrast, prompt symmetric nephrograms are displayed. There is no abdominal free fluid. There is neither mesenteric nor retroperitoneal lymphadenopathy. Normal opacified loops of small and large bowel are identified. There is no pelvic free fluid. The urinary bladder is unremarkable. There is neither pelvic nor inguinal lymphadenopathy. Bone windows: Neither sclerotic nor lytic bone lesions are identified. 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 Right greater than left bilateral pleural effusions with associated airspace disease.
--- NOTE | 2018-02-10 03:09 | Event Note ---
Event Note Event Note: Patient with persistent abdominal pain. I went to see the patient. He reports 10/10 pain in RLQ and bilateral flanks. On exam he is exquisitly tender to palpation RLQ, LLQ, and Left CVA. Patient also had a fever 100.5 around 20:00. I ordered a stat CT abd/pelv with oral and IV contrast:MPRESSION: The pancreas is edematous, increased from prior exam. There is surrounding low-attenuation fluid. This fluid extends into the left upper quadrant and the right paracolic gutter and right lower quadrant. There is no significant enhancement identified about this fluid focus. There are no demonstrable areas of pancreatic necrosis. 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 Right greater than left bilateral pleural effusions with associated airspace disease. CT findings correlate with clinical exam of abdomen. Will make patient NPO again; restart IV fluids for hydration; increase pain medication as patient's pain is not well controlled.
[2018-02-10 06:00] VITALS: BP 132/84
--- NOTE | 2018-02-10 07:55 | PN- Housestaff ---
Subjective Follow-up For: pancreatitis uncontrolled pain Subjective: Patient states that his pain has not been well controlled. We attempted to wean pain meds over the weekend and advance diet but patient had a return of severe pain. Was put back on NPO and fluids overnight and more intense pain meds. CT abd showed worsening pancreatitis with new pleural effusions and patient had a temp to 100.5 yesterday. Today vitals are stable and wnl. LFTs have continued to resolve. Review of Systems Constitutional: Reports: no symptoms. Cardiovascular: Reports: no symptoms. Respiratory: Reports: no symptoms. Gastrointestinal: Reports: abdominal pain. Genitourinary: Reports: no symptoms. Musculoskeletal: Reports: no symptoms. Skin: Reports: no symptoms. Neurological/Psychological: Reports: no symptoms. Objective Last 24 Hrs of Vital Signs/I&O Vital Signs Date Time Temp Pulse Resp B/P B/P Pulse O2 O2 Flow FiO2 Mean Ox Delivery Rate 02/10 08 98 Room Air 02/10 0600 99.0 75 18 132/84 95 Room Air 02/09 2241 99.7 02/09 2015 100.5 79 20 142/78 95 02/09 1458 99.4 70 20 139/96 98 Room Air Intake & Output 02/10 1600 02/10 0800 02/10 0000 Intake Total 200 Output Total 1550 400 Balance -1350 -400 Intake, IV 200 Output, Stool 600 Output, Urine 950 400 Physical Exam General Appearance: Alert, Oriented X3, Cooperative, Mild Distress Skin: No Rashes, No Breakdown, No Significant Lesion Skin Temp/Moisture Exam: Warm/Dry Sepsis Skin Exam (color): Normal for Ethnicity Cardiovascular: Regular Rate, Normal S1, Normal S2, No Murmurs Lungs: Clear to Auscultation, Normal Air Movement Abdomen: Normal Bowel Sounds, Soft, tender to palpation mostly around epigastrum Neurological: Normal Speech Extremities: No Clubbing, No Cyanosis, No Edema Vascular: Normal Pulses, Pulses Symmetrical Current Medications: Current Medications Sig/Oz Start time Last Medication Dose Route Stop Time Status Admin Acetaminophen 0 .STK-MED ONE 02/10 1333 DC PO Acetaminophen 325 MG ONCE ONE 02/10 1130 DC 02/10 PO 02/10 1131 1333 Heparin Sodium 5,000 UNIT Q8 02/04 0600 AC 02/10 (Porcine) SC 1333 Lactated Ringer's 1,000 ML Q10H 02/10 0800 AC 02/10 IV 0813 Morphine Sulfate 4 MG Q6P PRN 02/10 0300 AC 02/10 IV 1024 Morphine Sulfate 4 MG ONCE ONE 02/09 2130 DC 02/09 IV 02/09 Morphine Sulfate 0 .STK-MED ONE 02/09 2130 DC .ROUTE Morphine Sulfate 1 MG Q6P PRN 02/08 1245 DC 02/10 IV 0000 Nicotine 7 MG DAILY 02/04 0900 AC 02/10 TOP 0814 Omeprazole 40 MG DAILY AC 02/07 0700 AC 02/10 PO 0350 Ondansetron HCl 4 MG Q6P PRN 02/04 0245 AC 02/04 IV 1858 Oxycodone HCl 10 MG Q4P PRN 02/10 0315 AC 02/10 PO 1334 Oxycodone HCl 5 MG Q6P PRN 02/04 0800 DC 02/10 PO 0246 Patient Medication 1 ED ONE ONE 02/10 0915 RI 02/10 Teaching ED 02/10 0916 0916 Polyethylene Glycol 17 GM DAILY 02/09 1612 AC PO Potassium Chloride 40 MEQ ONCE ONE 02/10 1130 DC 02/10 PO 02/10 1131 1333 Pregabalin 25 MG BID 02/09 1408 AC 02/10 PO 0813 Senna/Docusate Sodium 2 TAB DAILY 02/06 1028 AC 02/07 PO 0846 Sodium Chloride 1,000 ML Q10H 02/10 0315 DC 02/10 IV 0341 Last 24 Hrs of Lab/Steven Results Last 24 Hrs of Labs/Mics: Laboratory Tests 02/10/18 0742: Anion Gap 6, Estimated GFR > 60, BUN/Creatinine Ratio 20.0, CBC w Diff NO MAN DIFF REQ, RBC 4.45 L, MCV 90.2, MCH 30.8, MCHC 34.1, RDW 13.8, MPV 8.2, Gran % 77.5 H, Lymphocytes % 9.6 L, Monocytes % 11.4 H, Eosinophils % 1.2, Basophils % 0.3, Absolute Granulocytes 6.3, Absolute Lymphocytes 0.8 L, Absolute Monocytes 0.9 H, Absolute Eosinophils 0.1, Absolute Basophils 0 Microbiology 02/10 0250 STOOL: Clostridium difficile Toxin A & B - COMP Assessment/Plan Assessment: Mr. Bynum is a 52yo M w/ PMH of diverticulitis, kidney stones s/p lithotripsy, gallstones s/p cholecystectomy, s/p Ppipa procedure w/ temporary colostomy followed by revision in 2016, s/p hernia repair, reversible ischemia on nuclear stress test status post cardiac cath recently in 2014 presented to [facility] w/ N/V/D/severe intermittent ab pain since 1pm of 02/03/2018, endorseed loose BM x 1 on 02/03 but none since, w/ intermittent non-bloody vomiting, mostly foods. During our clinical interaction, patient denied recent travel/sick contacts, fever/lightheadedness/diaphoresis/night sweat/weight change/cough/SOB/Chest Pain /urinary abnormality, or other skin/musculoskeletal/neurological/mood disorders, or dietary/appetite change. -Smoking: active smoker 30ppy -Alcohol: denied -Drugs: denied On admission, Vitals: stable afebrile, HTN 218/97 Physical exam as above. Pertinent findings include acute distress 2/2 pain w/ HTN on monitor, and epigastric and LLQ ab pain on palpation, decreased BS. Limited exam due to pain. -CBC: mild leukocytosis 11.5, otherwise WNL -CMP: WNl except Amylase/Lipase 3643/>96589, Tb/DB 2.4/1.4, AST/ALT 266/219, ALKP 196, trop -ve x [address]: Prominent inflammatory changes surrounding the pancreas with edematous appearance of the pancreas. This is suggestive of acute pancreatitis. -Stable ectatic appearance of the left common iliac artery. Abdominal ultrasound: 1. Edematous pancreas with peripancreatic fluid, consistent with acute pancreatitis. 2. The pancreatic head and portions of the tail are not visualized. 3. Intra and extrahepatic ductal dilatation is seen. Common bile duct measuring up to 1 cm. Findings may at least in part be related to the patient's postcholecystectomy state with similar appearance seen on older CT scan from 07/11/2017, at which time, no evidence of acute pancreatitis was seen. In the visualized portions of the common bile duct on today's exam, no filling defect is seen. Distal most CBD is, however, not visualized. Close clinical correlation is requested. 4. Status post cholecystectomy. -EKG: NSR w/o significant ST-T abnormalities, unchanged from previous. -Last Echo: 2011 by Wade, stage 2 diastolic dysfunction -Interventions in ER: NS bolus x 1, Morphine 6mg IV x 2, ZOfran IV x 1 Problem list/Assessment/Hospital Course: #Acute pancreatitis, unclear etiology currently #Transaminitis/Elev AlkP, likely reactive #R/o Biliary causes (choledocolithiasis, etc) #Active smoker #PMHx as above -Patient admitted to general medicine floors for evaluation and treatment -Vitals per protocol, monitor I&O per protocol. -Appreciate GI consult, patient was initially started on lactated Ringer's rate to 250 cc/h. LDH was done as per GI and was 799, CRP sent for prognostic purposes which was elevated. Chest x-ray done to evaluate for pleural effusion showed no evidence. No evidence of hemoconcentration which would be a poor prognostic indicator. Patient had MRCP done ywhich did not show any evidence of stone but did show dilated ducts. It is likely that the stone already passed. Patient however continues to have severe pain. We attempted to wean narcotics and advance diet and patient continues to have severe pain. We did a repeat ct abd which showed worsening edema and now pleural effusions. As per Dr. Mon we will stay the course with the LR at 100cc/hr, increased pain meds, NPO. We will refer the patient to Dr. Navarrete for follow-up with endoscopic ultrasound at [place]. LFTs have decreased. WBC count is normal. Patient did a fever over the weekend. We will continue to trend these. We have switched IV Protonix to by mouth. The patient has had a bowel movement. He is currently not on any antibiotics as there is no evidence of cholecystitis. Patient has a history of renal stones but on CT abd pelvis, no evidence stone. Patient had dark urine despite being on lactated Ringer's which has been DC'd as patient is tolerating his diet. He had a UA done which did not show any evidence of infection but did show bilirubin. -Attempt to advance diet to regular tomorrow and taper her pain meds with aim to stop narcotics. -Continue home meds -Hypokalemia, repleted. Hyponatremia, monitor. -Nicotine patch PRN. -Trend LFTs -Pain per pathway w/ IV Morphine/Dilaudid PRN with tapering. DVT prophylaxis Lovenox + ALPS NPO Full Code Problem List: 1. Pancreatitis Pain Ratin Pain Location: epigastrum Pain Goal: Pain 4 or less Pain Plan: pathway Tomorrow's Labs & Rationales: bep and lfts to follow hypokalemia and liver damage
[2018-02-10 09:13] LABS: ABSOLUTE BASOPHIL COUNT 0 /CUMM (0.0-0.2); ABSOLUTE EOSINOPHIL COUNT 0.1 /CUMM (0.0-0.7); ABSOLUTE GRANULOCYTE CT 6.3 /CUMM (1.4-6.5); ABSOLUTE LYMPH COUNT 0.8 /CUMM (1.2-3.4); ABSOLUTE MONOCYTE COUNT 0.9 /CUMM (0.10-0.60); BASOPHIL % 0.3 % (0.0-2.0); EOSINOPHIL % 1.2 % (0-5); GRANULOCYTE % 77.5 % (42.2-75.2); HEMATOCRIT 40.2 % (42-52); MEAN CORPUSCULAR HGB 30.8 PG (27.0-31.0); MEAN CORPUSCULAR HGB CONC 34.1 G/DL (33.0-37.0); MEAN CORPUSCULAR VOLUME 90.2 FL (80.0-94.0); MEAN PLATELET VOLUME 8.2 FL (7.4-10.4); PLATELET COUNT 211 /CUMM (130-400); RBC DISTRIBUTION WIDTH 13.8 % (11.5-14.5); RED BLOOD CELL CT 4.45 /CUMM (4.70-6.10); WHITE BLOOD CELL COUNT 8.2 /CUMM (4.8-10.8)
--- NOTE | 2018-02-10 10:30 | PN- Att Addend ---
Attending Addendum Attending Brief Note Patient still in pain now also complaining of a headache and the pain medications do not seem to be helping the headache. His temperature max is 100.5. No major changes in physical abdomen is still soft and tender. His white count is 8200. The CAT scan yesterday showed increased pancreatic edema and increased abdominal fluid also right more than left pleural effusions. Will need to check with GI see what the next step is. Also follow-up pancreatic enzymes. And find an analgesic which may help his headache. Intake & Output 02/10 1600 02/10 0400 02/09 1600 02/09 0400 02/08 1600 02/08 0400 Intake Total 200 1100 790 240 Output Total 650 1300 400 200 500 200 Balance -450 -1300 700 -200 290 40 Intake, IV 200 20 Intake, Oral 1080 790 240 Number 1 0 Bowel Movements Output, Stool 600 Output, Urine 650 700 400 200 500 200 Patient 211 lb Weight Current Medications Sig/Oz Start time Last Medication Dose Route Stop Time Status Admin Heparin Sodium 5,000 UNIT Q8 02/04 0600 02/10 (Porcine) SC 0350 Lactated Ringer's 1,000 ML Q10H 02/10 0800 AC 02/10 IV 0813 Morphine Sulfate 4 MG Q6P PRN 02/10 0300 AC 02/10 IV 0348 Morphine Sulfate 4 MG ONCE ONE 02/09 2130 DC 02/09 IV 02/09 Morphine Sulfate 0 .STK-MED ONE 02/09 2130 DC .ROUTE Morphine Sulfate 1 MG Q6P PRN 02/08 1245 DC 02/10 IV 0000 Nicotine 7 MG DAILY 02/04 0900 02/10 TOP 0814 Omeprazole 40 MG DAILY AC 02/07 0700 AC 02/10 PO 0350 Ondansetron HCl 4 MG Q6P PRN 02/04 0245 AC 02/04 IV 1858 Oxycodone HCl 10 MG Q4P PRN 02/10 0315 AC 02/10 PO 0813 Oxycodone HCl 5 MG Q6P PRN 02/04 0800 DC 02/10 PO 0246 Patient Medication 1 ED ONE ONE 02/10 0915 DC 02/10 Teaching ED 02/10 0916 0916 Polyethylene Glycol 17 GM DAILY 02/09 1612 AC PO Pregabalin 25 MG BID 02/09 1408 AC 02/10 PO 0813 Senna/Docusate Sodium 2 TAB DAILY 02/06 1028 AC 02/07 PO 0846 Sodium Chloride 1,000 ML Q10H 02/10 0315 DC 02/10 IV 0341 Laboratory Tests 02/10/18 0742: Anion Gap 6, Estimated GFR > 60, BUN/Creatinine Ratio 20.0, CBC w Diff NO MAN DIFF REQ, RBC 4.45 L, MCV 90.2, MCH 30.8, MCHC 34.1, RDW 13.8, MPV 8.2, Gran % 77.5 H, Lymphocytes % 9.6 L, Monocytes % 11.4 H, Eosinophils % 1.2, Basophils % 0.3, Absolute Granulocytes 6.3, Absolute Lymphocytes 0.8 L, Absolute Monocytes 0.9 H, Absolute Eosinophils 0.1, Absolute Basophils 0 02/09/18 0715: Total Bilirubin 1.3, Direct Bilirubin 0.6 H, AST 21, ALT 39, Alkaline Phosphatase 90, Total Protein 5.6 L, Albumin 2.8 L 02/08/18 0730: CBC w Diff NO MAN DIFF REQ, RBC 4.44 L, MCV 90.3, MCH 31.2 H, MCHC 34.5, RDW 13.8, MPV 8.8, Gran % 82.8 H, Lymphocytes % 8.1 L, Monocytes % 8.3, Eosinophils % 0.7, Basophils % 0.1, Absolute Granulocytes 6.6 H, Absolute Lymphocytes 0.6 L, Absolute Monocytes 0.7 H, Absolute Eosinophils 0.1, Absolute Basophils 0 Microbiology 02/10 025 STOOL: Clostridium difficile Toxin A & B - RECD Microbiology 02/10 025 STOOL: Clostridium difficile Toxin A & B - RECD Vital Signs Date Time Temp Pulse Resp B/P B/P Pulse O2 O2 Flow FiO2 Mean Ox Delivery Rate 02/10 0600 99.0 75 18 132/84 95 Room Air 02/091 99.7 02/09 2015 100.5 79 20 142/78 95 02/09 1458 99.4 70 20 139/96 98 Room Air
[2018-02-10 15:42] VITALS: BP 146/68
[2018-02-10 21:51] VITALS: BP 134/82
--- NOTE | 2018-02-10 21:57 | PN- Gastroenterology ---
Assessment/Plan GI Assessment/Recommendations: ASSESSMENT: 1. Acute pancreatitis. Mild worsening with increased fluid collections. However laboratory values remain stable. 2. Bilateral pleural effusions right greater than left. Concern regarding potential for respiratory deterioration 3. Abdominal pain. Likely related to worsening pancreatitis. However pain is colored by patient's anxiety and narcotic dependence. RECOMMENDATIONS: 1. Consider gentle diuresis given pleural effusions. 2. Would consult pulmonary regarding pleural effusions.. 2. Pay close attention to oxygen saturations as patient may develop respiratory decompensation in the setting of acute pancreatitis. 3. If patient is not getting adequate relief with morphine would switch to Dilaudid IV. 4. Continue to follow laboratory studies and monitor clinically. Subjective Subjective: Patient reports that he is having abdominal pain which is more severe. He has been transitioned from Toradol to morphine but reports that he does not feel he is getting relief from the morphine. He has been agitated. He has had no nausea or vomiting. A CT scan of the abdomen was obtained today. Results are as follows. FINDINGS: There are right greater than left bilateral pleural effusions with associated passive airspace disease. There is a benign 5 mm calcified granuloma within the right lower lobe on image [id number]. The visualized portions of the heart are unremarkable. The liver is of normal size and attenuation without focal lesions. There is stable mild intrahepatic biliary ductal dilation in this patient status post cholecystectomy. The pancreas is edematous, increased from prior exam. There is surrounding low-attenuation fluid. This fluid extends into the left upper quadrant and the right paracolic gutter and right lower quadrant. There is no significant enhancement identified about this fluid focus. There are no demonstrable areas of pancreatic necrosis. The spleen and adrenal glands are unremarkable. Both kidneys are of normal size and attenuation without hydronephrosis or nephrolithiasis. Following the administration of IV contrast, prompt symmetric nephrograms are displayed. There is no abdominal free fluid. There is neither mesenteric nor retroperitoneal lymphadenopathy. Normal opacified loops of small and large bowel are identified. There is no pelvic free fluid. The urinary bladder is unremarkable. There is neither pelvic nor inguinal lymphadenopathy. Bone windows: Neither sclerotic nor lytic bone lesions are identified. 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 Right greater than left bilateral pleural effusions with associated airspace disease. Review of Systems Constitutional: Denies: chills, fever. Cardiovascular: Denies: chest pain, edema, palpitations. Respiratory: Denies: cough, orthopnea, short of breath. Gastrointestinal: Reports: see HPI. Hematologic/Endocrine: Denies: bruising. Objective Vital Signs and I&Os Vital Signs Date Time Temp Pulse Resp B/P B/P Pulse O2 O2 Flow FiO2 Mean Ox Delivery Rate 02/10 1542 98.4 64 18 146/68 97 Room Air 02/10 0800 98 Room Air 02/10 0600 99.0 75 18 132/84 95 Room Air 02/09 2241 99.7 Intake & Output 02/10 1600 02/10 0400 02/09 1600 02/09 0400 02/08 1600 02/08 0400 Intake Total 1120 1100 790 240 Output Total 1302 1300 400 200 500 200 Balance -182 -1300 700 -200 290 40 Intake, IV 1000 20 Intake, Oral 120 1080 790 240 Number 1 0 Bowel Movements Output, Stool 2 600 Output, Urine 1300 700 400 200 500 200 Patient 211 lb Weight Physical Exam General Appearance: moderate distress Neck: supple, full range of motion Respiratory: decreased breath sounds at the bases right greater than left Cardiovascular: regular rate/rhythm, Normal S1 and S2 without Rub, Murmur, or Gallop Abdomen: soft, diffuse upper abdominal tenderness without rebound or guarding Extremities: no edema Neurologic/Psychiatric: awake, oriented x 3 Skin: intact, normal color Current Medications: Current Medications Sig/Oz Start time Last Medication Dose Route Stop Time Status Admin Acetaminophen 0 .STK-MED ONE 02/10 1333 DC PO Acetaminophen 325 MG ONCE ONE 02/10 1130 DC 02/10 PO 02/10 1131 1333 Heparin Sodium 5,000 UNIT Q8 02/04 0600 AC 02/10 (Porcine) SC 2041 Hydromorphone HCl 0 .STK-MED ONE 02/10 2033 DC .ROUTE Hydromorphone HCl 0 .STK-MED ONE 02/11 2032 DC PO Hydromorphone HCl 1 MG Q4P PRN 02/10 2015 AC 02/10 IV 2041 Lactated Ringer's 1,000 ML Q10H 02/10 0800 AC 02/10 IV 1743 Morphine Sulfate 4 MG Q6P PRN 02/10 0300 AC 02/10 IV 1656 Morphine Sulfate 1 MG Q6P PRN 02/08 1245 DC 02/10 IV 0000 Nicotine 7 MG DAILY 02/04 0900 02/10 TOP 0814 Omeprazole 40 MG DAILY AC 02/07 0700 AC 02/10 PO 0350 Ondansetron HCl 0 .STK-MED ONE 02/10 2049 DC .ROUTE Ondansetron HCl 4 MG Q6P PRN 02/04 0245 02/10 IV 2052 Oxycodone HCl 10 MG Q4P PRN 02/10 0315 AC 02/10 PO 1750 Oxycodone HCl 5 MG Q6P PRN 02/04 0800 DC 02/10 PO 0246 Patient Medication 1 ED ONE ONE 02/10 0915 DC 02/10 Teaching ED 02/10 0916 0916 Polyethylene Glycol 17 GM DAILY 02/09 1612 AC PO Potassium Chloride 40 MEQ ONCE ONE 02/10 1130 DC 02/10 PO 02/10 1131 1333 Pregabalin 25 MG BID 02/09 1408 AC 02/10 PO 2106 Senna/Docusate Sodium 2 TAB DAILY 02/06 1028 AC 02/07 PO 0846 Sodium Chloride 1,000 ML Q10H 02/10 0315 DC 02/10 IV 0341 Results Pertinent Lab Results: Laboratory Tests 02/10 02/09 0742 0715 Chemistry Sodium (137 - 145 mmol/L) 132 L Potassium (3.5 - 5.1 mmol/L) 3.2 L Chloride (98 - 107 mmol/L) 99 Carbon Dioxide (22 - 30 mmol/L) 26 Anion Gap (5 - 16) 6 BUN (9 - 20 mg/dL) 12 Creatinine (0.7 - 1.2 mg/dL) 0.6 L Estimated GFR (>60 ml/min) > 60 BUN/Creatinine Ratio (7 - 25 %) 20.0 Total Bilirubin (0.2 - 1.3 mg/dL) 1.3 Direct Bilirubin (< 0.4 mg/dL) 0.6 H AST (17 - 59 U/L) 21 ALT (21 - 72 U/L) 39 Alkaline Phosphatase (< 127 U/L) 90 Total Protein (6.3 - 8.2 g/dL) 5.6 L Albumin (3.5 - 5.0 g/dL) 2.8 L Hematology CBC w Diff NO MAN DIFF REQ WBC (4.8 - 10.8 /CUMM) 8.2 RBC (4.70 - 6.10 /CUMM) 4.45 L Hgb (14.0 - 18.0 G/DL) 13.7 L Hct (42 - 52 %) 40.2 L MCV (80.0 - 94.0 FL) 90.2 MCH (27.0 - 31.0 PG) 30.8 MCHC (33.0 - 37.0 G/DL) 34.1 RDW (11.5 - 14.5 %) 13.8 Plt Count (130 - 400 /CUMM) 211 MPV (7.4 - 10.4 FL) 8.2 Gran % (42.2 - 75.2 %) 77.5 H Lymphocytes % (20.5 - 51.1 %) 9.6 L Monocytes % (1.7 - 9.3 %) 11.4 H Eosinophils % (0 - 5 %) 1.2 Basophils % (0.0 - 2.0 %) 0.3 Absolute Granulocytes (1.4 - 6.5 /CUMM) 6.3 Absolute Lymphocytes (1.2 - 3.4 /CUMM) 0.8 L Absolute Monocytes (0.10 - 0.60 /CUMM) 0.9 H Absolute Eosinophils (0.0 - 0.7 /CUMM) 0.1 Absolute Basophils (0.0 - 0.2 /CUMM) 0 02/08 0730 Hematology CBC w Diff NO MAN DIFF REQ WBC (4.8 - 10.8 /CUMM) 7.9 RBC (4.70 - 6.10 /CUMM) 4.44 L Hgb (14.0 - 18.0 G/DL) 13.9 L Hct (42 - 52 %) 40.1 L MCV (80.0 - 94.0 FL) 90.3 MCH (27.0 - 31.0 PG) 31.2 H MCHC (33.0 - 37.0 G/DL) 34.5 RDW (11.5 - 14.5 %) 13.8 Plt Count (130 - 400 /CUMM) 181 MPV (7.4 - 10.4 FL) 8.8 Gran % (42.2 - 75.2 %) 82.8 H Lymphocytes % (20.5 - 51.1 %) 8.1 L Monocytes % (1.7 - 9.3 %) 8.3 Eosinophils % (0 - 5 %) 0.7 Basophils % (0.0 - 2.0 %) 0.1 Absolute Granulocytes (1.4 - 6.5 /CUMM) 6.6 H Absolute Lymphocytes (1.2 - 3.4 /CUMM) 0.6 L Absolute Monocytes (0.10 - 0.60 /CUMM) 0.7 H Absolute Eosinophils (0.0 - 0.7 /CUMM) 0.1 Absolute Basophils (0.0 - 0.2 /CUMM) 0
[2018-02-11 07:30] VITALS: BP 131/92
--- NOTE | 2018-02-11 08:14 | PN- Housestaff ---
Subjective Follow-up For: pancreatitis Review of Systems Constitutional: Reports: no symptoms. Cardiovascular: Reports: no symptoms. Respiratory: Reports: no symptoms. Gastrointestinal: Reports: abdominal pain. Genitourinary: Reports: no symptoms. Skin: Reports: no symptoms. Objective Last 24 Hrs of Vital Signs/I&O Vital Signs Date Time Temp Pulse Resp B/P B/P Pulse O2 O2 Flow FiO2 Mean Ox Delivery Rate 02/11 1529 98.8 72 18 140/80 95 Room Air 02/11 0730 98.4 78 18 131/92 95 02/10 2151 98.5 77 18 134/82 95 Room Air Intake & Output 02/11 1600 02/11 0800 02/11 0000 Intake Total 830 800 0 Output Total 750 1050 Balance 80 800 -1050 Intake, IV 800 800 Intake, Oral 30 0 Output, Urine 750 1050 Physical Exam General Appearance: Alert, Oriented X3, Cooperative, Mild Distress HEENT: Atraumatic, PERRLA, EOMI, Mucous Membr. moist/pink Neck: Supple, No JVD Cardiovascular: Regular Rate, Normal S1, Normal S2 Abdomen: Normal Bowel Sounds, Soft Extremities: No Clubbing, No Cyanosis, No Edema Vascular: Normal Pulses, Pulses Symmetrical Current Medications: Current Medications Sig/Oz Start time Last Medication Dose Route Stop Time Status Admin Heparin Sodium 5,000 UNIT Q8 02/04 06 02/12 (Porcine) SC 1312 Hydromorphone HCl 2 MG Q3P PRN 02/12 1545 AC IV Hydromorphone HCl 1 MG Q4P PRN 02/10 2015 DC 02/12 IV 1516 Lactated Ringer's 1,000 ML Q10H 02/10 08 02/12 IV 0951 Morphine Sulfate 4 MG Q6P PRN 02/10 0300 AC 02/12 IV 1030 Nicotine 7 MG DAILY 02/04 0900 AC 02/12 TOP 0808 Omeprazole 40 MG DAILY AC 02/07 0700 AC 02/12 PO 0518 Ondansetron HCl 4 MG Q6P PRN 02/04 0245 AC 02/11 IV 1439 Oxycodone HCl 10 MG Q4P PRN 02/10 0315 AC 02/12 PO 1309 Polyethylene Glycol 17 GM DAILY 02/09 1612 AC PO Pregabalin 25 MG BID 02/09 1408 AC 02/12 PO 0808 Senna/Docusate Sodium 2 TAB DAILY 02/06 1028 AC 02/07 PO 0846 Assessment/Plan Assessment: Mr. Bynum is a 52yo M w/ PMH of diverticulitis, kidney stones s/p lithotripsy, gallstones s/p cholecystectomy, s/p Pippa procedure w/ temporary colostomy followed by revision in 2015, s/p hernia repair, reversible ischemia on nuclear stress test status post cardiac cath recently in 2014 presented to [facility] w/ N/V/D/severe intermittent ab pain since 1pm of 02/03/2018, endorseed loose BM x 1 on 02/03 but none since, w/ intermittent non-bloody vomiting, mostly foods. During our clinical interaction, patient denied recent travel/sick contacts, fever/lightheadedness/diaphoresis/night sweat/weight change/cough/SOB/Chest Pain /urinary abnormality, or other skin/musculoskeletal/neurological/mood disorders, or dietary/appetite change. -Smoking: active smoker 30ppy -Alcohol: denied -Drugs: denied On admission, Vitals: stable afebrile, HTN 218/97 Physical exam as above. Pertinent findings include acute distress 2/2 pain w/ HTN on monitor, and epigastric and LLQ ab pain on palpation, decreased BS. Limited exam due to pain. -CBC: mild leukocytosis 11.5, otherwise WNL -CMP: WNl except Amylase/Lipase 3643/>13320, Tb/DB 2.4/1.4, AST/ALT 266/219, ALKP 196, trop -ve x [address]: Prominent inflammatory changes surrounding the pancreas with edematous appearance of the pancreas. This is suggestive of acute pancreatitis. -Stable ectatic appearance of the left common iliac artery. Abdominal ultrasound: 1. Edematous pancreas with peripancreatic fluid, consistent with acute pancreatitis. 2. The pancreatic head and portions of the tail are not visualized. 3. Intra and extrahepatic ductal dilatation is seen. Common bile duct measuring up to 1 cm. Findings may at least in part be related to the patient's postcholecystectomy state with similar appearance seen on older CT scan from 07/11/2017, at which time, no evidence of acute pancreatitis was seen. In the visualized portions of the common bile duct on today's exam, no filling defect is seen. Distal most CBD is, however, not visualized. Close clinical correlation is requested. 4. Status post cholecystectomy. -EKG: NSR w/o significant ST-T abnormalities, unchanged from previous. -Last Echo: 2011 by [facility], stage 2 diastolic dysfunction -Interventions in ER: NS bolus x 1, Morphine 6mg IV x 2, ZOfran IV x 1 Problem list/Assessment/Hospital Course: #Acute pancreatitis, unclear etiology currently #Transaminitis/Elev AlkP, likely reactive #R/o Biliary causes (choledocolithiasis, etc) #Active smoker #PMHx as above -Patient admitted to general medicine floors for evaluation and treatment -Vitals per protocol, monitor I&O per protocol. -Appreciate GI consult, patient was initially started on lactated Ringer's rate to 250 cc/h. LDH was done as per GI and was 799, CRP sent for prognostic purposes which was elevated. Chest x-ray done to evaluate for pleural effusion showed no evidence. No evidence of hemoconcentration which would be a poor prognostic indicator. Patient had MRCP done ywhich did not show any evidence of stone but did show dilated ducts. It is likely that the stone already passed. Patient however continues to have severe pain. We attempted to wean narcotics and advance diet and patient continues to have severe pain. We did a repeat ct abd which showed worsening edema and now pleural effusions. As per Dr. Mon we will stay the course with the LR at 100cc/hr, increased pain meds, NPO. We will refer the patient to Dr. Navarrete for follow-up with endoscopic ultrasound at [place]. LFTs have decreased. WBC count is normal. Patient did a fever over the weekend. We will continue to trend these. We have switched IV Protonix to by mouth. The patient has had a bowel movement. He is currently not on any antibiotics as there is no evidence of cholecystitis. Patient has a history of renal stones but on CT abd pelvis, no evidence stone. Patient had dark urine despite being on lactated Ringer's which has been DC'd as patient is tolerating his diet. He had a UA done which did not show any evidence of infection but did show bilirubin. -Advance diet to clears tomorrow morning and taper her pain meds with aim to stop narcotics. -Continue home meds -Hypokalemia, repleted. Hyponatremia, monitor. -Nicotine patch PRN. -Trend LFTs -Pain per pathway w/ IV Morphine/Dilaudid PRN with tapering. DVT prophylaxis Lovenox + ALPS NPO Full Code Problem List: 1. Pancreatitis Pain Ratin Pain Location: abd epigastric Pain Goal: Pain 4 or less Pain Plan: pathway with dilaudid toradol Tomorrow's Labs & Rationales: none
--- NOTE | 2018-02-11 13:10 | PN- Att Addend ---
Attending Addendum Attending Brief Note Patient laying in bed. Feeling little better. Seems to be hungry. Still has pain. Vital signs are stable no fever. No major changes on physical examination. His potassium today was 3.7 liver function tests within normal limits. Will check with GI to see if we can maybe start some clear liquids today and continue observation and monitoring his labs and continue pain management Intake & Output 02/11 1600 02/11 0400 02/10 1600 02/10 0400 02/09 1600 02/09 0400 Intake Total 800 0 1120 1100 Output Total 1050 1302 1300 400 200 Balance 800 -1050 -182 -1300 700 -200 Intake, IV 800 1000 20 Intake, Oral 0 120 1080 Number 1 0 Bowel Movements Output, Stool 2 600 Output, Urine 1050 1300 700 400 200 Current Medications Sig/Oz Start time Last Medication Dose Route Stop Time Status Admin Acetaminophen 0 .STK-MED ONE 02/10 1333 DC PO Heparin Sodium 5,000 UNIT Q8 02/04 0600 AC 02/11 (Porcine) SC 0548 Hydromorphone HCl 0 .STK-MED ONE 02/10 2033 DC .ROUTE Hydromorphone HCl 0 .STK-MED ONE 02/11 2032 DC PO Hydromorphone HCl 1 MG Q4P PRN 02/10 2015 AC 02/10 IV 2041 Lactated Ringer's 1,000 ML Q10H 02/10 08 02/11 IV 0451 Morphine Sulfate 4 MG Q6P PRN 02/10 0300 AC 02/11 IV 0841 Nicotine 7 MG DAILY 02/04 0900 02/11 TOP 0841 Omeprazole 40 MG DAILY AC 02/07 0700 AC 02/10 PO 0350 Ondansetron HCl 0 .STK-MED ONE 02/10 2049 DC .ROUTE Ondansetron HCl 4 MG Q6P PRN 02/04 0245 AC 02/10 IV 2052 Oxycodone HCl 10 MG Q4P PRN 02/10 0315 AC 02/11 PO 1105 Polyethylene Glycol 17 GM DAILY 02/09 1612 AC PO Pregabalin 25 MG BID 02/09 1408 AC 02/11 PO 0841 Senna/Docusate Sodium 2 TAB DAILY 02/06 1028 AC 02/07 PO 0846 Laboratory Tests 02/11/18 0735: Anion Gap 7, Estimated GFR > 60, BUN/Creatinine Ratio 18.6, Total Bilirubin 1.2, Direct Bilirubin 0.7 H, AST 27, ALT 40, Alkaline Phosphatase 95, Total Protein 5.3 L, Albumin 2.5 L 02/10/18 0742: Anion Gap 6, Estimated GFR > 60, BUN/Creatinine Ratio 20.0, CBC w Diff NO MAN DIFF REQ, RBC 4.45 L, MCV 90.2, MCH 30.8, MCHC 34.1, RDW 13.8, MPV 8.2, Gran % 77.5 H, Lymphocytes % 9.6 L, Monocytes % 11.4 H, Eosinophils % 1.2, Basophils % 0.3, Absolute Granulocytes 6.3, Absolute Lymphocytes 0.8 L, Absolute Monocytes 0.9 H, Absolute Eosinophils 0.1, Absolute Basophils 0 02/09/18 0715: Total Bilirubin 1.3, Direct Bilirubin 0.6 H, AST 21, ALT 39, Alkaline Phosphatase 90, Total Protein 5.6 L, Albumin 2.8 L Microbiology 02/10 250 STOOL: Clostridium difficile Toxin A & B - COMP Microbiology 02/10 250 STOOL: Clostridium difficile Toxin A & B - COMP Vital Signs Date Time Temp Pulse Resp B/P B/P Pulse O2 O2 Flow FiO2 Mean Ox Delivery Rate 02/11 0730 98.4 78 18 131/92 95 02/10 2151 98.5 77 18 134/82 95 Room Air 02/10 1542 98.4 64 18 146/68 97 Room Air
[2018-02-11 15:29] VITALS: BP 140/80
[2018-02-11 21:35] VITALS: BP 124/71
[2018-02-12 06:33] VITALS: BP 150/90
--- NOTE | 2018-02-12 07:54 | PN- Housestaff ---
Subjective Follow-up For: Pancreatitis Subjective: Patient seen and examined. He continues to complain of severe abdominal pain despite being n.p.o. and on narcotic pain medication for days now. Patient did have a rescan of his abdomen which showed progressed pancreatitis. His vitals are stable today. Review of Systems Constitutional: Reports: no symptoms. EENTM: Reports: no symptoms. Cardiovascular: Reports: no symptoms. Respiratory: Reports: no symptoms. Gastrointestinal: Reports: abdominal pain. Genitourinary: Reports: no symptoms. Musculoskeletal: Reports: no symptoms. Skin: Reports: no symptoms. Neurological/Psychological: Reports: no symptoms. Objective Last 24 Hrs of Vital Signs/I&O Vital Signs Date Time Temp Pulse Resp B/P B/P Pulse O2 O2 Flow FiO2 Mean Ox Delivery Rate 02/12 1444 99.0 77 16 132/76 93 Room Air 02/12 1310 Room Air 02/12 0633 98.3 78 20 150/90 92 Room Air 02/11 2135 98.5 76 20 124/71 95 Room Air Intake & Output 02/12 1600 02/12 0800 02/12 0000 Intake Total 1600 800 400 Output Total 700 700 800 Balance 900 100 -400 Intake, IV 800 800 400 Intake, Oral 800 Output, Urine 700 700 800 Physical Exam General Appearance: Alert, Oriented X3, Cooperative, No Acute Distress Skin: No Rashes, No Breakdown, No Significant Lesion Skin Temp/Moisture Exam: Warm/Dry Sepsis Skin Exam (color): Normal for Ethnicity HEENT: Atraumatic, PERRLA, EOMI, Mucous Membr. moist/pink Cardiovascular: Regular Rate, Normal S1, Normal S2, No Murmurs Lungs: Clear to Auscultation Abdomen: Normal Bowel Sounds, Soft, No Hepatospenomegaly, No Masses Neurological: Normal Speech Extremities: No Clubbing, No Cyanosis, No Edema, Normal Pulses Current Medications: Current Medications Sig/Oz Start time Last Medication Dose Route Stop Time Status Admin Heparin Sodium 5,000 UNIT Q8 02/04 0600 AC 02/12 (Porcine) SC 1312 Hydromorphone HCl 2 MG Q3P PRN 02/12 1545 AC IV Hydromorphone HCl 1 MG Q4P PRN 02/10 2015 DC 02/12 IV 1516 Lactated Ringer's 1,000 ML Q10H 02/10 0800 AC 02/12 IV 0951 Morphine Sulfate 4 MG Q6P PRN 02/10 0300 AC 02/12 IV 1030 Nicotine 7 MG DAILY 02/04 0900 AC 02/12 TOP 0808 Omeprazole 40 MG DAILY AC 02/07 0700 02/12 PO 0518 Ondansetron HCl 4 MG Q6P PRN 02/04 0245 AC 02/11 IV 1439 Oxycodone HCl 10 MG Q4P PRN 02/10 0315 AC 02/12 PO 1309 Polyethylene Glycol 17 GM DAILY 02/09 1612 AC PO Pregabalin 25 MG BID 02/09 1408 AC 02/12 PO 0808 Senna/Docusate Sodium 2 TAB DAILY 02/06 1028 AC 02/07 PO 0846 Assessment/Plan Assessment: Mr. Bynum is a 52yo M w/ PMH of diverticulitis, kidney stones s/p lithotripsy, gallstones s/p cholecystectomy, s/p Pippa procedure w/ temporary colostomy followed by revision in 2015, s/p hernia repair, reversible ischemia on nuclear stress test status post cardiac cath recently in 2014 presented to [facility] w/ N/V/D/severe intermittent ab pain since 1pm of 02/03/2018, endorseed loose BM x 1 on 02/03 but none since, w/ intermittent non-bloody vomiting, mostly foods. During our clinical interaction, patient denied recent travel/sick contacts, fever/lightheadedness/diaphoresis/night sweat/weight change/cough/SOB/Chest Pain /urinary abnormality, or other skin/musculoskeletal/neurological/mood disorders, or dietary/appetite change. -Smoking: active smoker 30ppy -Alcohol: denied -Drugs: denied On admission, Vitals: stable afebrile, HTN 218/97 Physical exam as above. Pertinent findings include acute distress 2/2 pain w/ HTN on monitor, and epigastric and LLQ ab pain on palpation, decreased BS. Limited exam due to pain. -CBC: mild leukocytosis 11.5, otherwise WNL -CMP: WNl except Amylase/Lipase 3643/>25236, Tb/DB 2.4/1.4, AST/ALT 266/219, ALKP 196, trop -ve x [address]: Prominent inflammatory changes surrounding the pancreas with edematous appearance of the pancreas. This is suggestive of acute pancreatitis. -Stable ectatic appearance of the left common iliac artery. Abdominal ultrasound: 1. Edematous pancreas with peripancreatic fluid, consistent with acute pancreatitis. 2. The pancreatic head and portions of the tail are not visualized. 3. Intra and extrahepatic ductal dilatation is seen. Common bile duct measuring up to 1 cm. Findings may at least in part be related to the patient's postcholecystectomy state with similar appearance seen on older CT scan from 07/11/2017, at which time, no evidence of acute pancreatitis was seen. In the visualized portions of the common bile duct on today's exam, no filling defect is seen. Distal most CBD is, however, not visualized. Close clinical correlation is requested. 4. Status post cholecystectomy. -EKG: NSR w/o significant ST-T abnormalities, unchanged from previous. -Last Echo: 2011 by [facility], stage 2 diastolic dysfunction -Interventions in ER: NS bolus x 1, Morphine 6mg IV x 2, ZOfran IV x 1 Problem list/Assessment/Hospital Course: #Acute pancreatitis, unclear etiology currently #Transaminitis/Elev AP, likely reactive #R/o Biliary causes (choledocolithiasis, etc) #Active smoker #PMHx as above -Patient admitted to general medicine floors for evaluation and treatment -Vitals per protocol, monitor I&O per protocol. -Appreciate GI consult, patient was initially started on lactated Ringer's rate to 250 cc/h. LDH was done as per GI and was 799, CRP sent for prognostic purposes which was elevated. Chest x-ray done to evaluate for pleural effusion showed no evidence. No evidence of hemoconcentration which would be a poor prognostic indicator. Patient had MRCP done which did not show any evidence of stone but did show dilated ducts. It is likely that the stone already passed. Patient however continues to have severe pain. We attempted to wean narcotics and advance diet and patient continues to have severe pain. We did a repeat ct abd which showed worsening edema and now pleural effusions. As per Dr. Mon we will stay the course with the LR at 100cc/hr, increased pain meds, NPO. We will refer the patient to Dr. Navarrete for follow-up with endoscopic ultrasound at [place]. LFTs have decreased. WBC count is normal. Patient did a fever over the weekend. We will continue to trend these. We have switched IV Protonix to by mouth. The patient has had a bowel movement. He is currently not on any antibiotics as there is no evidence of cholecystitis. Patient has a history of renal stones but on CT abd pelvis, no evidence stone. Patient had dark urine despite being on lactated Ringer's which has been DC'd as patient is tolerating his diet. He had a UA done which did not show any evidence of infection but did show bilirubin. -We attempted to advance the patient's diet today and again he had recurrence of severe abdominal pain. We will increase the patient's Dilaudid to 2 mg every 3 hours as needed as per Dr. Davalos and will continue to offer a clear liquid diet. -Dr. Davalos has suggested pulmonary consult and gentle diuresis if needed for pleural effusions -Continue home meds -Hypokalemia, repleted. Hyponatremia, monitor. -Nicotine patch PRN. -Pain per pathway w/ IV Morphine/Dilaudid PRN with tapering. DVT prophylaxis Lovenox + ALPS NPO Full Code Problem List: 1. Pancreatitis, acute Pain Ratin Pain Location: Epigastric Pain Goal: Remain pain free Pain Plan: dilaudid 2mg q3 h, oxycodone, Toradol Tomorrow's Labs & Rationales: none
--- NOTE | 2018-02-12 10:09 | PN- Att Addend ---
Attending Addendum Attending Brief Note Patient slowly feeling better still has pain but has diminished in intensity. Patient sitting in the chair. His vital signs are stable no fever. No major changes on physical examination. Will start clear liquids this morning if he tolerates slowly progress. Monitor his labs. And make sure patient starts ambulating Intake & Output 02/12 1600 02/12 0400 02/11 1600 02/11 0400 02/10 1600 02/10 0400 Intake Total 444 496 9847 0 1120 Output Total 700 890 304 6054 1302 1300 Balance 100 -400 880 -1050 -182 -1300 Intake, IV 047 843 6562 1000 Intake, Oral 30 0 120 Output, Stool 2 600 Output, Urine 700 589 832 3445 1300 700 Current Medications Sig/Oz Start time Last Medication Dose Route Stop Time Status Admin Heparin Sodium 5,000 UNIT Q8 02/04 0600 AC 02/12 (Porcine) SC 0518 Hydromorphone HCl 1 MG Q4P PRN 02/10 2015 AC 02/11 IV 1432 Lactated Ringer's 1,000 ML Q10H 02/10 08 02/12 IV 0951 Morphine Sulfate 4 MG Q6P PRN 02/10 0300 AC 02/12 IV 0518 Nicotine 7 MG DAILY 02/04 0900 AC 02/12 TOP 0808 Omeprazole 40 MG DAILY AC 02/07 0700 AC 02/12 PO 0518 Ondansetron HCl 4 MG Q6P PRN 02/04 0245 AC 02/11 IV 1439 Oxycodone HCl 10 MG Q4P PRN 02/10 0315 AC 02/12 PO 0808 Polyethylene Glycol 17 GM DAILY 02/09 1612 AC PO Pregabalin 25 MG BID 02/09 1408 AC 02/12 PO 0808 Senna/Docusate Sodium 2 TAB DAILY 02/06 1028 AC 02/07 PO 0846 Laboratory Tests 02/11/18 0735: Anion Gap 7, Estimated GFR > 60, BUN/Creatinine Ratio 18.6, Total Bilirubin 1.2, Direct Bilirubin 0.7 H, AST 27, ALT 40, Alkaline Phosphatase 95, Total Protein 5.3 L, Albumin 2.5 L 02/10/18 0742: Anion Gap 6, Estimated GFR > 60, BUN/Creatinine Ratio 20.0, CBC w Diff NO MAN DIFF REQ, RBC 4.45 L, MCV 90.2, MCH 30.8, MCHC 34.1, RDW 13.8, MPV 8.2, Gran % 77.5 H, Lymphocytes % 9.6 L, Monocytes % 11.4 H, Eosinophils % 1.2, Basophils % 0.3, Absolute Granulocytes 6.3, Absolute Lymphocytes 0.8 L, Absolute Monocytes 0.9 H, Absolute Eosinophils 0.1, Absolute Basophils 0 Microbiology 02/10 250 STOOL: Clostridium difficile Toxin A & B - COMP Microbiology 02/10 250 STOOL: Clostridium difficile Toxin A & B - COMP Vital Signs Date Time Temp Pulse Resp B/P B/P Pulse O2 O2 Flow FiO2 Mean Ox Delivery Rate 02/12 0633 98.3 78 20 150/90 92 Room Air 02/11 2135 98.5 76 20 124/71 95 Room Air 02/11 1529 98.8 72 18 140/80 95 Room Air
[2018-02-12 14:44] VITALS: BP 132/76
--- NOTE | 2018-02-12 16:42 | PN- Gastroenterology ---
Assessment/Plan GI Assessment/Recommendations: ASSESSMENT: 1. Acute pancreatitis. Mild worsening with increased fluid collections. However laboratory values remain stable. 2. Bilateral pleural effusions right greater than left. Concern regarding potential for respiratory deterioration 3. Abdominal pain. Likely related to worsening pancreatitis. However pain is colored by patient's anxiety and narcotic dependence. RECOMMENDATIONS: 1. Consider gentle diuresis given pleural effusions. 2. Would consult pulmonary regarding pleural effusions.. 2. Pay close attention to oxygen saturations as patient may develop respiratory decompensation in the setting of acute pancreatitis. 3. Would increase Dilaudid to 2-4 mg IV every 4 hours. Patient has not been getting sufficient narcotic analgesia. I would also discontinue morphine patient may continue to have oral medications for breakthrough. 4. Continue to follow laboratory studies and monitor clinically. 5. Would not discontinue diet. If patient is unable to eat would favor placement of a nasojejunal tube for enteral nutrition. Subjective Subjective: Patient still complains of pain. He has episodes of severe pain although he is. Is where he appears to be doing fairly well. I was called by the housestaff, Dr. Maharaj who feels that he is having quite a bit of pain, although when I have seen him he has been quite comfortable. He has been receiving only 1 mg of Dilaudid every 4 hours as needed. He is also had available to him in oral narcotic analgesics available for breakthrough. Objective Vital Signs and I&Os Vital Signs Date Time Temp Pulse Resp B/P B/P Pulse O2 O2 Flow FiO2 Mean Ox Delivery Rate 02/12 1444 99.0 77 16 132/76 93 Room Air 02/12 1310 Room Air 02/12 0633 98.3 78 20 150/90 92 Room Air 02/11 2135 98.5 76 20 124/71 95 Room Air Intake & Output 02/12 1600 02/12 0400 02/11 1600 02/11 0400 02/10 1600 02/10 0400 Intake Total 2400 400 1630 0 1120 Output Total 1400 309 971 1713 1302 1300 Balance 1000 -400 880 -1050 -182 -1300 Intake, IV 2062 295 8228 1000 Intake, Oral 800 30 0 120 Output, Stool 2 600 Output, Urine 1400 238 187 7111 1300 700 Physical Exam General Appearance: well developed/nourished, comfortable Respiratory: lungs clear Cardiovascular: regular rate/rhythm Abdomen: normal bowel sounds, soft, tenderness, Tenderness is mild and there is no rebound or guarding Neurologic/Psychiatric: awake, alert, oriented x 3 Skin: intact, normal color, warm/dry Current Medications: Current Medications Sig/Oz Start time Last Medication Dose Route Stop Time Status Admin Heparin Sodium 5,000 UNIT Q8 02/04 0600 AC 02/12 (Porcine) SC 1312 Hydromorphone HCl 2 MG Q3P PRN 02/12 1545 AC IV Hydromorphone HCl 1 MG Q4P PRN 02/10 2015 DC 02/12 IV 1516 Lactated Ringer's 1,000 ML Q10H 02/10 0800 AC 02/12 IV 0951 Morphine Sulfate 4 MG Q6P PRN 02/10 0300 AC 02/12 IV 1030 Nicotine 7 MG DAILY 02/04 0900 AC 02/12 TOP 0808 Omeprazole 40 MG DAILY AC 02/07 0700 AC 02/12 PO 0518 Ondansetron HCl 4 MG Q6P PRN 02/04 0245 AC 02/11 IV 1439 Oxycodone HCl 10 MG Q4P PRN 02/10 0315 AC 02/12 PO 1309 Polyethylene Glycol 17 GM DAILY 02/09 1612 AC PO Pregabalin 25 MG BID 02/09 1408 AC 02/12 PO 0808 Senna/Docusate Sodium 2 TAB DAILY 02/06 1028 AC 02/07 PO 0846 Results Pertinent Lab Results: Laboratory Tests 02/11 02/10 0735 0742 Chemistry Sodium (137 - 145 mmol/L) 133 L 132 L Potassium (3.5 - 5.1 mmol/L) 3.7 3.2 L Chloride (98 - 107 mmol/L) 99 99 Carbon Dioxide (22 - 30 mmol/L) 27 26 Anion Gap (5 - 16) 7 6 BUN (9 - 20 mg/dL) 13 12 Creatinine (0.7 - 1.2 mg/dL) 0.7 0.6 L Estimated GFR (>60 ml/min) > 60 > 60 BUN/Creatinine Ratio (7 - 25 %) 18.6 20.0 Total Bilirubin (0.2 - 1.3 mg/dL) 1.2 Direct Bilirubin (< 0.4 mg/dL) 0.7 H AST (17 - 59 U/L) 27 ALT (21 - 72 U/L) 40 Alkaline Phosphatase (< 127 U/L) 95 Total Protein (6.3 - 8.2 g/dL) 5.3 L Albumin (3.5 - 5.0 g/dL) 2.5 L Hematology CBC w Diff NO MAN DIFF REQ WBC (4.8 - 10.8 /CUMM) 8.2 RBC (4.70 - 6.10 /CUMM) 4.45 L Hgb (14.0 - 18.0 G/DL) 13.7 L Hct (42 - 52 %) 40.2 L MCV (80.0 - 94.0 FL) 90.2 MCH (27.0 - 31.0 PG) 30.8 MCHC (33.0 - 37.0 G/DL) 34.1 RDW (11.5 - 14.5 %) 13.8 Plt Count (130 - 400 /CUMM) 211 MPV (7.4 - 10.4 FL) 8.2 Gran % (42.2 - 75.2 %) 77.5 H Lymphocytes % (20.5 - 51.1 %) 9.6 L Monocytes % (1.7 - 9.3 %) 11.4 H Eosinophils % (0 - 5 %) 1.2 Basophils % (0.0 - 2.0 %) 0.3 Absolute Granulocytes (1.4 - 6.5 /CUMM) 6.3 Absolute Lymphocytes (1.2 - 3.4 /CUMM) 0.8 L Absolute Monocytes (0.10 - 0.60 /CUMM) 0.9 H Absolute Eosinophils (0.0 - 0.7 /CUMM) 0.1 Absolute Basophils (0.0 - 0.2 /CUMM) 0
[2018-02-12 22:10] VITALS: BP 149/106
[2018-02-13 07:22] VITALS: BP 122/80
--- NOTE | 2018-02-13 08:22 | PN- Housestaff ---
Subjective Follow-up For: Pancreatitis Subjective: This morning patient's pain is somewhat less. Yesterday his pain medications were increased and he is now on 2 mg of Dilaudid every 3 hours as needed. Is tolerating his clear liquid diet. Vital signs are stable and he is saturating 92% on room air. Review of Systems Constitutional: Reports: no symptoms. Cardiovascular: Reports: no symptoms. Respiratory: Reports: no symptoms. Gastrointestinal: Reports: abdominal pain. Genitourinary: Reports: no symptoms. Musculoskeletal: Reports: no symptoms. Objective Last 24 Hrs of Vital Signs/I&O Vital Signs Date Time Temp Pulse Resp B/P B/P Pulse O2 O2 Flow FiO2 Mean Ox Delivery Rate 02/13 722 98.6 69 22 122/80 92 02/12 2210 98.9 74 22 149/106 95 Room Air Intake & Output 02/13 1600 02/13 0800 02/13 0000 Intake Total 940 910 Output Total 300 275 Balance 640 635 Intake, IV 800 610 Intake, Oral 140 300 Output, Urine 300 275 Physical Exam General Appearance: Alert, Oriented X3, Cooperative, No Acute Distress Skin: No Rashes, No Breakdown, No Significant Lesion Skin Temp/Moisture Exam: Warm/Dry HEENT: Atraumatic, EOMI, Mucous Membr. moist/pink Cardiovascular: Regular Rate, Normal S1, Normal S2, No Murmurs Lungs: Clear to Auscultation, Normal Air Movement Abdomen: Normal Bowel Sounds, Soft, still has some tenderness to palpation Neurological: Normal Speech Extremities: No Clubbing, No Cyanosis, No Edema Current Medications: Current Medications Sig/Oz Start time Last Medication Dose Route Stop Time Status Admin Docusate Sodium 0 .STK-MED ONE 02/13 0524 DC PO Heparin Sodium 5,000 UNIT Q8 02/04 06 02/13 (Porcine) SC 1451 Hydromorphone HCl 2 MG Q3P PRN 02/12 1545 02/13 IV 1446 Hydromorphone HCl 1 MG Q4P PRN 02/10 2015 VA 02/12 IV 1516 Lactated Ringer's 1,000 ML Q10H 02/10 0800 02/13 IV 0636 Morphine Sulfate 4 MG Q6P PRN 02/10 0300 DC 02/12 IV 1030 Nicotine 7 MG DAILY 02/04 09 02/13 TOP 0808 Omeprazole 40 MG DAILY 02/07 0700 02/13 PO 0635 Ondansetron HCl 4 MG Q6P PRN 02/04 0245 AC 02/11 IV 1439 Oxycodone HCl 10 MG Q4P PRN 02/10 0315 02/13 PO 0807 Polyethylene Glycol 17 GM DAILY 02/09 1612 PO Pregabalin 25 MG BID 02/09 1408 02/13 PO 0807 Senna/Docusate Sodium 2 TAB DAILY 02/06 1028 02/07 PO 0846 Assessment/Plan Assessment: Mr. Bynum is a 52yo M w/ PMH of diverticulitis, kidney stones s/p lithotripsy, gallstones s/p cholecystectomy, s/p Pippa procedure w/ temporary colostomy followed by revision in 2015, s/p hernia repair, reversible ischemia on nuclear stress test status post cardiac cath recently in 2014 presented to [facility] w/ N/V/D/severe intermittent ab pain since 1pm of 02/03/2018, endorseed loose BM x 1 on 02/03 but none since, w/ intermittent non-bloody vomiting, mostly foods. During our clinical interaction, patient denied recent travel/sick contacts, fever/lightheadedness/diaphoresis/night sweat/weight change/cough/SOB/Chest Pain /urinary abnormality, or other skin/musculoskeletal/neurological/mood disorders, or dietary/appetite change. -Smoking: active smoker 30ppy -Alcohol: denied -Drugs: denied On admission, Vitals: stable afebrile, HTN 218/97 Physical exam as above. Pertinent findings include acute distress 2/2 pain w/ HTN on monitor, and epigastric and LLQ ab pain on palpation, decreased BS. Limited exam due to pain. -CBC: mild leukocytosis 11.5, otherwise WNL -CMP: WNl except Amylase/Lipase 3643/>88485, Tb/DB 2.4/1.4, AST/ALT 266/219, ALKP 196, trop -ve x [address]: Prominent inflammatory changes surrounding the pancreas with edematous appearance of the pancreas. This is suggestive of acute pancreatitis. -Stable ectatic appearance of the left common iliac artery. Abdominal ultrasound: 1. Edematous pancreas with peripancreatic fluid, consistent with acute pancreatitis. 2. The pancreatic head and portions of the tail are not visualized. 3. Intra and extrahepatic ductal dilatation is seen. Common bile duct measuring up to 1 cm. Findings may at least in part be related to the patient's postcholecystectomy state with similar appearance seen on older CT scan from 07/11/2017, at which time, no evidence of acute pancreatitis was seen. In the visualized portions of the common bile duct on today's exam, no filling defect is seen. Distal most CBD is, however, not visualized. Close clinical correlation is requested. 4. Status post cholecystectomy. -EKG: NSR w/o significant ST-T abnormalities, unchanged from previous. -Last Echo: 2011 by Wade, stage 2 diastolic dysfunction -Interventions in ER: NS bolus x 1, Morphine 6mg IV x 2, ZOfran IV x 1 Problem list/Assessment #Acute pancreatitis, unclear etiology currently #Transaminitis/Elev AP, likely reactive #R/o Biliary causes (choledocolithiasis, etc) #Active smoker #PMHx as above Interval events: patient was initially started on lactated Ringer's rate to 250 cc/h. LDH was done as per GI and was 799, CRP sent for prognostic purposes which was elevated. Chest x-ray done to evaluate for pleural effusion showed no evidence. No evidence of hemoconcentration which would be a poor prognostic indicator. Patient had MRCP done which did not show any evidence of stone but did show dilated ducts. It is likely that the stone already passed. Patient however continues to have severe pain. We attempted to wean narcotics and advance diet and patient continues to have severe pain. We did a repeat ct abd which showed worsening edema and new pleural effusions. Patient has a history of renal stones but on CT abd pelvis, no evidence stone. Patient had dark urine despite being on lactated Ringer's which has been DC'd as patient is tolerating his diet. He had a UA done which did not show any evidence of infection but did show bilirubin. Plan -Patient admitted to general medicine floors for evaluation and treatment -Vitals per protocol, monitor I&O per protocol. -Appreciate GI consult, as per Dr. Mon we will stay the course with the LR at 100cc/hr, increased pain meds, clear liquid diet. -We will refer the patient to Dr. Navarrete for follow-up with endoscopic ultrasound at [place]. -LFTs have decreased. WBC count is normal. Patient did a fever over the weekend but has been afebrile now. -Continue by mouth Protonix -He is currently not on any antibiotics as there is no evidence of cholecystitis , continue to hold. -We attempted to advance the patient's diet yesterday to clears and again he had recurrence of severe abdominal pain. As per Dr. Davalos we increased the patient's Dilaudid to 2 mg every 3 hours as needed and continued to offer a clear liquid diet. -Dr. Davalos has suggested pulmonary consult and gentle diuresis if needed for pleural effusions, patient is currently saturating well on room air and has had no pulmonary complaints. We ordered a chest x-ray today to follow-up which showed bibasilar subsegmental atelectasis with small right more than left pleural effusions. An incentive spirometer has been ordered. No evidence of dense consolidation. -Continue home meds -Hypokalemia seen previously, repleted. -Nicotine patch PRN. -As patient hopefully starts to feel better, we will taper pain medications and advance diet, consider GI recommendations. -As per GI, please call them [facility] if the patient develops signs or sx of cholangitis, namely hypotension, tachycardia, confusion, temp spikes DVT prophylaxis Lovenox + ALPS NPO Full Code Problem List: 1. Pancreatitis, acute Pain Ratin Pain Location: Epigastrium Pain Goal: Pain 4 or less Pain Plan: Dilaudid 2 mg every 3 when necessary Roxicodone Tomorrow's Labs & Rationales: none
--- NOTE | 2018-02-13 10:28 | PN- Att Addend ---
Attending Addendum Attending Brief Note Patient still has pain he states is more when he moves around. Patient was started on clear liquids. GI recommended increased analgesics. A little pleural effusion. Patient is not hypoxemic patient is not in any respiratory distress. Temp max is 99 rest of the vital signs are stable. No major changes on physical. Will continue observation. Follow-up labs CBBC and probably check to the pancreatic enzymes.. Intake & Output 02/13 1600 02/13 0400 02/12 1600 02/12 0400 02/11 1600 02/11 0400 Intake Total 250 976 0196 400 1630 0 Output Total 685 870 9374 890 605 4825 Balance 079 595 3884 -400 880 -1050 Intake, IV 702 279 6139 400 1600 Intake, Oral 140 300 800 30 0 Output, Urine 081 649 1948 325 262 1924 Current Medications Sig/Oz Start time Last Medication Dose Route Stop Time Status Admin Docusate Sodium 0 .STK-MED ONE 02/13 0524 DC PO Heparin Sodium 5,000 UNIT Q8 02/04 06 02/13 (Porcine) SC 0635 Hydromorphone HCl 2 MG Q3P PRN 02/12 1545 02/13 IV 0643 Hydromorphone HCl 1 MG Q4P PRN 02/10 2015 DC 02/12 IV 1516 Lactated Ringer's 1,000 ML Q10H 02/10 08 02/13 IV 0636 Morphine Sulfate 4 MG Q6P PRN 02/10 0300 DC 02/12 IV 1030 Nicotine 7 MG DAILY 02/04 0900 02/13 TOP 0808 Omeprazole 40 MG DAILY AC 02/07 0700 AC 02/13 PO 0635 Ondansetron HCl 4 MG Q6P PRN 02/04 0245 02/11 IV 1439 Oxycodone HCl 10 MG Q4P PRN 02/10 0315 02/13 PO 0807 Polyethylene Glycol 17 GM DAILY 02/09 1612 AC PO Pregabalin 25 MG BID 02/09 1408 AC 02/13 PO 0807 Senna/Docusate Sodium 2 TAB DAILY 02/06 1028 AC 02/07 PO 0846 Laboratory Tests 02/11/18 0735: Anion Gap 7, Estimated GFR > 60, BUN/Creatinine Ratio 18.6, Total Bilirubin 1.2, Direct Bilirubin 0.7 H, AST 27, ALT 40, Alkaline Phosphatase 95, Total Protein 5.3 L, Albumin 2.5 L Vital Signs Date Time Temp Pulse Resp B/P B/P Pulse O2 O2 Flow FiO2 Mean Ox Delivery Rate 02/13 722 98.6 69 22 122/80 92 02/12 2210 98.9 74 22 149/106 95 Room Air 02/12 1444 99.0 77 16 132/76 93 Room Air 02/12 1310 Room Air
--- NOTE | 2018-02-13 14:59 | RADIOLOGY REPORT ---
EXAMINATION: XR CHEST CLINICAL INFORMATION: Pleural effusion. COMPARISON: CT of the abdomen and pelvis 02/10/2018 and chest radiograph 02/05/2018. TECHNIQUE: 2 views of the chest were obtained. FINDINGS: There is subsegmental atelectasis at both lung bases and small right more than left pleural effusions. No dense consolidation is seen. There is no pneumothorax. The cardiomediastinal silhouette appears normal. There are mild multilevel degenerative spondylotic changes in the thoracic spine. IMPRESSION: Bibasilar subsegmental atelectasis with small right more than left pleural effusions. No dense consolidation.
[2018-02-13 15:33] VITALS: BP 142/76
--- NOTE | 2018-02-13 16:12 | PN- Gastroenterology ---
Assessment/Plan GI Assessment/Recommendations: ASSESSMENT: 1. Acute pancreatitis. Mild worsening with increased fluid collections. However laboratory values remain stable. 2. Bilateral pleural effusions right greater than left. Concern regarding potential for respiratory deterioration 3. Abdominal pain. Likely related to worsening pancreatitis. However pain has responded to change in pain medications and is doing better. RECOMMENDATIONS: 1. Would gently diuresis given pleural effusions as well as recorded O2 saturation of 92% on RA. Would follow O2 saturations closely as patient may develop respiratory decompensation in the setting of acute pancreatitis. 2. Would consult pulmonary regarding pleural effusions.. 2. Encourage PO intake. 3. Would increase Dilaudid if needed. 4. Continue to follow laboratory studies and monitor clinically. 5. Would not discontinue diet. If patient is unable to eat would favor placement of a nasojejunal tube for enteral nutrition. 6. Would decrease IV fluids as patient is able ty take more PO. Clinical utility of IV LR for acute pancreatitis occurs within the first 48 hours of admission. Subjective Subjective: Patient is doing somewhat better with an increased dose in pain medications. Had had an O2 saturation of 92% o RA. Had a chest X-Ray that showed the following: FINDINGS: There is subsegmental atelectasis at both lung bases and small right more than left pleural effusions. No dense consolidation is seen. There is no pneumothorax. The cardiomediastinal silhouette appears normal. There are mild multilevel degenerative spondylotic changes in the thoracic spine. IMPRESSION: Bibasilar subsegmental atelectasis with small right more than left pleural effusions. No dense consolidation. Is tolerating clear liquid diet. Objective Vital Signs and I&Os Vital Signs Date Time Temp Pulse Resp B/P B/P Pulse O2 O2 Flow FiO2 Mean Ox Delivery Rate 02/13 1533 97.9 76 22 142/76 98 Room Air 02/13 0722 98.6 69 22 122/80 92 02/12 2210 98.9 74 22 149/106 95 Room Air Intake & Output 02/13 1600 02/13 0400 02/12 1600 02/12 0400 02/11 1600 02/11 0400 Intake Total 2540 910 2400 400 1630 0 Output Total 7310 487 9869 967 293 7319 Balance 7198 972 8908 -400 880 -1050 Intake, IV 6562 764 9385 400 1600 Intake, Oral 940 300 800 30 0 Number 1 Bowel Movements Output, Urine 0654 412 4538 771 067 8656 Physical Exam General Appearance: awake, anxious, comfortable Respiratory: lungs clear Cardiovascular: regular rate/rhythm, Normal S1 and S2, without rub, murmur or gallop. Abdomen: normal bowel sounds, soft, non-tender, no organomegaly Extremities: no edema Neurologic/Psychiatric: alert, oriented x 3 Current Medications: Current Medications Sig/Oz Start time Last Medication Dose Route Stop Time Status Admin Docusate Sodium 0 .STK-MED ONE 02/13 0524 DC PO Heparin Sodium 5,000 UNIT Q8 02/04 0600 02/13 (Porcine) SC 1451 Hydromorphone HCl 2 MG Q3P PRN 02/12 1545 02/13 IV 1446 Lactated Ringer's 1,000 ML Q10H 02/10 0800 02/13 IV 0636 Morphine Sulfate 4 MG Q6P PRN 02/10 0300 DC 02/12 IV 1030 Nicotine 7 MG DAILY 02/04 0900 02/13 TOP 0808 Omeprazole 40 MG DAILY AC 02/07 0700 02/13 PO 0635 Ondansetron HCl 4 MG Q6P PRN 02/04 0245 02/11 IV 1439 Oxycodone HCl 10 MG Q4P PRN 02/10 0315 AC 02/13 PO 0807 Polyethylene Glycol 17 GM DAILY 02/09 1612 AC PO Pregabalin 25 MG BID 02/09 1408 AC 02/13 PO 0807 Senna/Docusate Sodium 2 TAB DAILY 02/06 1028 AC 02/07 PO 0846 Results Pertinent Lab Results: Laboratory Tests 02/11 0735 Chemistry Sodium (137 - 145 mmol/L) 133 L Potassium (3.5 - 5.1 mmol/L) 3.7 Chloride (98 - 107 mmol/L) 99 Carbon Dioxide (22 - 30 mmol/L) 27 Anion Gap (5 - 16) 7 BUN (9 - 20 mg/dL) 13 Creatinine (0.7 - 1.2 mg/dL) 0.7 Estimated GFR (>60 ml/min) > 60 BUN/Creatinine Ratio (7 - 25 %) 18.6 Total Bilirubin (0.2 - 1.3 mg/dL) 1.2 Direct Bilirubin (< 0.4 mg/dL) 0.7 H AST (17 - 59 U/L) 27 ALT (21 - 72 U/L) 40 Alkaline Phosphatase (< 127 U/L) 95 Total Protein (6.3 - 8.2 g/dL) 5.3 L Albumin (3.5 - 5.0 g/dL) 2.5 L
[2018-02-13 22:12] VITALS: BP 142/80
[2018-02-14 05:30] VITALS: BP 140/86
--- NOTE | 2018-02-14 07:42 | PN- Housestaff ---
Subjective Follow-up For: Pancreatitis Subjective: Patient is seen and examined. He is reporting 7/10 abdominal pain. The nausea has improved and he did not throw up after lunch. He is getting Dilaudid for his abdominal discomfort. Also reports of headache, rest of ROS is not significant Review of Systems Constitutional: Reports: see HPI. Objective Last 24 Hrs of Vital Signs/I&O Vital Signs Date Time Temp Pulse Resp B/P B/P Pulse O2 O2 Flow FiO2 Mean Ox Delivery Rate 02/14 0800 95 Room Air Room Air 02/14 0530 98.0 70 20 140/86 96 Room Air 02/14 0000 Room Air 02/13 2212 98.6 74 20 142/80 96 Room Air 02/13 1533 97.9 76 22 142/76 98 Room Air Intake & Output 02/14 1600 02/14 0802/14 0000 Intake Total 800 1020 Output Total 600 428 Balance 200 592 Intake, IV 800 620 Intake, Oral 400 Number 0 Bowel Movements Output, Urine 600 428 Physical Exam General Appearance: Alert, Oriented X3, Cooperative, Mild Distress Skin: No Rashes, No Breakdown HEENT: Atraumatic, PERRLA Neck: Supple, No JVD Cardiovascular: Normal S1, Normal S2 Lungs: Normal Air Movement Abdomen: TENDER TO PALPATION Neurological: Normal Speech Extremities: No Cyanosis Current Medications: Current Medications Sig/Oz Start time Last Medication Dose Route Stop Time Status Admin Heparin Sodium 5,000 UNIT Q8 02/04 06 AC 02/13 (Porcine) SC 1451 Hydromorphone HCl 2 MG Q3P PRN 02/12 1545 AC 02/14 IV 1031 Lactated Ringer's 1,000 ML Q10H 02/10 08 AC 02/14 IV 1225 Nicotine 7 MG DAILY 02/04 0900 AC 02/14 TOP 0818 Omeprazole 40 MG DAILY AC 02/07 0700 AC 02/14 PO 0624 Ondansetron HCl 4 MG Q6P PRN 02/04 0245 AC 02/11 IV 1439 Oxycodone HCl 10 MG Q4P PRN 02/10 0315 AC 02/14 PO 1249 Polyethylene Glycol 17 GM DAILY 02/09 1612 AC PO Pregabalin 25 MG BID 02/09 1408 AC 02/14 PO 0818 Senna/Docusate Sodium 2 TAB DAILY 02/06 1028 AC 08/17 PO 0846 Last 24 Hrs of Lab/Steven Results Last 24 Hrs of Labs/Mics: ABOVE Assessment/Plan Assessment: Mr. Bynum is a 52yo M w/ PMH of diverticulitis, kidney stones s/p lithotripsy, gallstones s/p cholecystectomy, s/p Pippa procedure w/ temporary colostomy followed by revision in 2015, s/p hernia repair, reversible ischemia on nuclear stress test status post cardiac cath recently in 2014 presented to [facility] w/ N/V/D/severe intermittent ab pain since 1pm of 02/03/2018, endorseed loose BM x 1 on 02/03 but none since, w/ intermittent non-bloody vomiting, mostly foods. Problem list #1 pancreatitis #2 hypokalemia #3 nicotine dependence #4 diarrhea Assessment and plan Patient continues to report of abdominal discomfort, his diet was advanced to full liquids for lunch but reports of 7/10 abdominal pain after that. At this point will be conservative regarding advancing his diet given his symptoms, will continue full liquids for the dinner. Can consider low-fat regular diet in the morning if pain is better controlled. Patient reports that he has developed diarrhea for past 3 days, yesterday he had 3 loose stools and today he has had 2 so far. The stools are not foul smelling, no suspicion of C. difficile at this point given that he has not been on antibiotics. If diarrhea worsens, can consider sending C. difficile. Will discontinue his stool softeners senna and MiraLAX. Patient continues to be on Dilaudid 2 mg every 3 as needed. MRA did not show any choledocholithiasis and patient is status post cholecystectomy. He does not have dyslipidemia either, cause of pancreatitis unknown. He does not report of any respiratory symptoms, we will continue to monitor the pulmonary effusions which could be secondary to hS pancreatitis. We will follow GI recommendations. DVT prophylaxis Lovenox + ALPS Full Code Problem List: 1. Pancreatitis Pain Ratin Pain Location: None Pain Goal: Pain 4 or less Pain Plan: DILAUDID Tomorrow's Labs & Rationales: CBC BEP
--- NOTE | 2018-02-14 11:17 | PN- Att Addend ---
Attending Addendum Attending Brief Note Patient hungry. Still having some pain. Vital signs are stable no fever. No major changes on physical examination. Will increase his diet and monitor and make sure the pain does not get any worse continue ambulating. Continue the pain medications hopefully will be able to decrease the dosage soon. Also monitor his chemistries. Intake & Output 02/14 1600 02/14 0400 02/13 1600 02/13 0400 02/12 1600 02/12 0400 Intake Total 800 1020 2540 910 2400 400 Output Total 557 052 2700 275 1400 800 Balance 039 075 8466 635 1000 -400 Intake, IV 437 087 1490 610 1600 400 Intake, Oral 400 940 300 800 Number 0 1 Bowel Movements Output, Urine 175 927 0041 275 1400 800 Current Medications Sig/Oz Start time Last Medication Dose Route Stop Time Status Admin Heparin Sodium 5,000 UNIT Q8 02/04 06 AC 02/13 (Porcine) SC 1451 Hydromorphone HCl 2 MG Q3P PRN 02/12 1545 AC 02/14 IV 1031 Lactated Ringer's 1,000 ML Q10H 02/10 0800 AC 02/14 IV 0259 Nicotine 7 MG DAILY 02/04 0900 AC 02/14 TOP 0818 Omeprazole 40 MG DAILY AC 02/07 0700 AC 02/14 PO 0624 Ondansetron HCl 4 MG Q6P PRN 02/04 0245 AC 02/11 IV 1439 Oxycodone HCl 10 MG Q4P PRN 02/10 0315 AC 02/14 PO 0818 Polyethylene Glycol 17 GM DAILY 02/09 1612 AC PO Pregabalin 25 MG BID 02/09 1408 AC 02/14 PO 0818 Senna/Docusate Sodium 2 TAB DAILY 02/06 1028 AC 02/07 PO 0846 Vital Signs Date Time Temp Pulse Resp B/P B/P Pulse O2 O2 Flow FiO2 Mean Ox Delivery Rate 02/14 0800 95 Room Air Room Air 02/14 0530 98.0 70 20 140/86 96 Room Air 02/14 0000 Room Air 02/13 2212 98.6 74 20 142/80 96 Room Air 02/13 1533 97.9 76 22 142/76 98 Room Air
[2018-02-14 15:29] VITALS: BP 150/82
--- NOTE | 2018-02-14 21:38 | RADIOLOGY REPORT ---
EXAMINATION: XR PORTABLE CHEST CLINICAL INFORMATION: Pleuritic chest pain. Dyspnea. Bilateral pleural effusions COMPARISON: Chest x-ray 02/13/2018. CT scan abdomen pelvis 02/10/2018 TECHNIQUE: Portable frontal view of the chest was obtained. 4:53 PM FINDINGS: There is a moderate volume right pleural effusion. Haziness at the lung bases likely also due to underlying consolidation or atelectasis at the lung bases. Similar changes are seen in the left lung base due to a smaller left effusion and basilar atelectasis. No pneumothorax. No pulmonary vascular congestion. The cardiac and mediastinal contours are normal. There is orthopedic anchors in the right humeral head. IMPRESSION: Bilateral pleural effusions with bibasilar airspace opacity, consolidation atelectasis. These basilar densities are greater at the right lung base than the left.
[2018-02-14 22:11] VITALS: BP 120/80
[2018-02-15 06:17] VITALS: BP 114/74
--- NOTE | 2018-02-15 08:25 | PN- Housestaff ---
See Addendum Subjective Follow-up For: Pancreatitis Subjective: Patient seen and examined. He was very uncomfortable due to his abdominal pain and felt better after getting Dilaudid. Review of Systems Constitutional: Reports: see HPI. Objective Last 24 Hrs of Vital Signs/I&O Vital Signs Date Time Temp Pulse Resp B/P B/P Pulse O2 O2 Flow FiO2 Mean Ox Delivery Rate 02/15 0617 98.6 70 20 114/74 93 02/14 2211 97.9 75 18 120/80 95 Room Air 02/14 1529 98.6 82 18 150/82 97 Intake & Output 02/15 1600 02/15 0800 02/15 0000 Intake Total 1320 1340 Output Total 450 650 Balance 870 690 Intake, IV 840 300 Intake, Oral 480 1040 Number 1 1 Bowel Movements Output, Urine 450 650 Physical Exam General Appearance: Alert, Oriented X3, Cooperative, Moderate Distress Skin: No Rashes, No Breakdown HEENT: Atraumatic, PERRLA Neck: Supple Lungs: Clear to Auscultation, Normal Air Movement Abdomen: Normal Bowel Sounds, tenderness in epigastric region Neurological: Normal Speech Extremities: No Cyanosis, No Edema Current Medications: Current Medications Sig/Oz Start time Last Medication Dose Route Stop Time Status Admin Heparin Sodium 5,000 UNIT Q8 02/04 06 AC 02/15 (Porcine) SC 0520 Hydromorphone HCl 2 MG Q3P PRN 02/12 1545 AC 02/15 IV 1224 Lactated Ringer's 1,000 ML Q10H 02/10 08 AC 02/15 IV 0616 Nicotine 7 MG DAILY 02/04 0900 AC 02/15 TOP 0905 Omeprazole 40 MG DAILY AC 02/07 0700 AC 02/15 PO 0520 Ondansetron HCl 4 MG Q6P PRN 02/04 0245 AC 02/11 IV 1439 Oxycodone HCl 10 MG Q4P PRN 02/10 0315 AC 02/15 PO 1133 Polyethylene Glycol 17 GM DAILY 02/09 1612 DC PO Pregabalin 25 MG BID 02/09 1408 AC 02/15 PO 0905 Senna/Docusate Sodium 2 TAB DAILY 02/06 1028 DC 02/07 PO 0846 Last 24 Hrs of Lab/Steven Results Last 24 Hrs of Labs/Mics: Laboratory Tests 02/15/18 0625: Anion Gap 4 L, Estimated GFR > 60, BUN/Creatinine Ratio 7.1, Lipase 212, CBC w Diff NO MAN DIFF REQ, RBC 3.89 L, MCV 89.4, MCH 30.5, MCHC 34.2, RDW 13.5, MPV 7.8, Gran % 78.6 H, Lymphocytes % 13.5 L, Monocytes % 6.4, Eosinophils % 1.3, Basophils % 0.2, Absolute Granulocytes 6.0, Absolute Lymphocytes 1.0 L, Absolute Monocytes 0.5, Absolute Eosinophils 0.1, Absolute Basophils 0 02/14/18 1618: Troponin I < 0.01 Assessment/Plan Assessment: Mr. Bynum is a 52yo M w/ PMH of diverticulitis, kidney stones s/p lithotripsy, gallstones s/p cholecystectomy, s/p Pippa procedure w/ temporary colostomy followed by revision in 2015, s/p hernia repair, reversible ischemia on nuclear stress test status post cardiac cath recently in 2014 presented to [facility] w/ N/V/D/severe intermittent ab pain since 1pm of 02/03/2018, endorseed loose BM x 1 on 02/03 but none since, w/ intermittent non-bloody vomiting, mostly foods. Problem list #1 pancreatitis #2 hypokalemia #3 nicotine dependence #4 diarrhea Assessment and plan Patient continues to report of abdominal discomfort, will continue him on liquids for today. Can consider low-fat regular diet in the morning if pain is better controlled. Patient continues to be on Dilaudid 2 mg every 3 as needed[address] with Dr[address] Ardon regarding his symptoms, will follow the recommendations. MRA did not show any choledocholithiasis and patient is status post cholecystectomy. He does not have dyslipidemia either, cause of pancreatitis unknown. He does not report of any respiratory symptoms, we will continue to monitor the pulmonary effusions which could be secondary to his pancreatitis. We will follow GI recommendations. DVT prophylaxis Lovenox + ALPS Full Code Problem List: 1. Pancreatitis Pain Ratin Pain Location: abdomen Pain Goal: Pain 4 or less Pain Plan: dilaudid Tomorrow's Labs & Rationales: none
[2018-02-15 08:29] LABS: ABSOLUTE BASOPHIL COUNT 0 /CUMM (0.0-0.2); ABSOLUTE EOSINOPHIL COUNT 0.1 /CUMM (0.0-0.7); ABSOLUTE MONOCYTE COUNT 0.5 /CUMM (0.10-0.60); BASOPHIL % 0.2 % (0.0-2.0); EOSINOPHIL % 1.3 % (0-5); GRANULOCYTE % 78.6 % (42.2-75.2); MEAN CORPUSCULAR HGB 30.5 PG (27.0-31.0); MEAN CORPUSCULAR HGB CONC 34.2 G/DL (33.0-37.0); MEAN CORPUSCULAR VOLUME 89.4 FL (80.0-94.0); MEAN PLATELET VOLUME 7.8 FL (7.4-10.4); PLATELET COUNT 303 /CUMM (130-400); RBC DISTRIBUTION WIDTH 13.5 % (11.5-14.5); RED BLOOD CELL CT 3.89 /CUMM (4.70-6.10); WHITE BLOOD CELL COUNT 7.6 /CUMM (4.8-10.8)
[2018-02-15 09:19] LABS: HEMATOCRIT 34.8 % (42-52)
--- NOTE | 2018-02-15 13:55 | PN- Gastroenterology ---
Assessment/Plan GI Assessment/Recommendations: Smoldering pancreatitis with persistent pain and abdominal distention. Day 12 hospitalization. Etiology of pancreatitis unclear, with negative MRCP for choledocholithiasis. Recommendations * Low-fat diet * Repeat CT scan of the pancreas/abdomen, with IV contrast, to assess for complications andfluid collections * Check liver enzymes * Continue narcotic analgesics Subjective Subjective: The patient continues to have diffuse abdominal pain, improved with narcotic analgesics. Minimal nausea and no vomiting. No fever. Some abdominal distention. Objective Vital Signs and I&Os Vital Signs Date Time Temp Pulse Resp B/P B/P Pulse O2 O2 Flow FiO2 Mean Ox Delivery Rate 02/15 0617 98.6 70 20 114/74 93 02/14 2211 97.9 75 18 120/80 95 Room Air 02/14 1529 98.6 82 18 150/82 97 Intake & Output 02/15 1600 02/15 0400 02/14 1600 02/14 0400 02/13 1600 02/13 0400 Intake Total 1320 1340 2400 1020 2540 910 Output Total 234 992 0695 428 1050 275 Balance 662 275 2126 592 1490 635 Intake, IV 540 600 2728 620 1600 610 Intake, Oral 480 1040 800 400 940 300 Number 1 1 0 1 Bowel Movements Output, Urine 978 729 8229 428 1050 275 Physical Exam: Alert and oriented. Normal cognition. Skin anicteric, without lesion, rash or jaundice. No adenopathy. Sclera anicteric. Oropharynx normal. Abdomen distended with epigastric tympany, and normal valve sounds; tender diffusely but mostly in the upper abdomen and right lower quadrant; no apparent hepatomegaly or mass. Extremities without clubbing, cyanosis or edema. Current Medications: Current Medications Sig/Oz Start time Last Medication Dose Route Stop Time Status Admin Heparin Sodium 5,000 UNIT Q8 02/04 06 AC 02/15 (Porcine) SC 0520 Hydromorphone HCl 2 MG Q3P PRN 02/12 1545 AC 02/15 IV 1224 Lactated Ringer's 1,000 ML Q10H 02/10 08 AC 02/15 IV 0616 Nicotine 7 MG DAILY 02/04 09 AC 02/15 TOP 0905 Omeprazole 40 MG DAILY AC 02/07 0700 AC 02/15 PO 0520 Ondansetron HCl 4 MG Q6P PRN 02/04 0245 AC 02/11 IV 1439 Oxycodone HCl 10 MG Q4P PRN 02/10 0315 AC 02/15 PO 1133 Polyethylene Glycol 17 GM DAILY 02/09 1612 DC PO Pregabalin 25 MG BID 02/09 1408 AC 02/15 PO 0905 Senna/Docusate Sodium 2 TAB DAILY 02/06 1028 DC 02/07 PO 0846 Results Pertinent Lab Results: Laboratory Tests 02/15 02/14 0625 1618 Chemistry Sodium (137 - 145 mmol/L) 133 L Potassium (3.5 - 5.1 mmol/L) 3.6 Chloride (98 - 107 mmol/L) 99 Carbon Dioxide (22 - 30 mmol/L) 31 H Anion Gap (5 - 16) 4 L BUN (9 - 20 mg/dL) 5 L Creatinine (0.7 - 1.2 mg/dL) 0.7 Estimated GFR (>60 ml/min) > 60 BUN/Creatinine Ratio (7 - 25 %) 7.1 Troponin I (<0.11 ng/ml) < 0.01 Lipase (23 - 300 U/L) 212 Hematology CBC w Diff NO MAN DIFF REQ WBC (4.8 - 10.8 /CUMM) 7.6 RBC (4.70 - 6.10 /CUMM) 3.89 L Hgb (14.0 - 18.0 G/DL) 11.9 L Hct (42 - 52 %) 34.8 L MCV (80.0 - 94.0 FL) 89.4 MCH (27.0 - 31.0 PG) 30.5 MCHC (33.0 - 37.0 G/DL) 34.2 RDW (11.5 - 14.5 %) 13.5 Plt Count (130 - 400 /CUMM) 303 MPV (7.4 - 10.4 FL) 7.8 Gran % (42.2 - 75.2 %) 78.6 H Lymphocytes % (20.5 - 51.1 %) 13.5 L Monocytes % (1.7 - 9.3 %) 6.4 Eosinophils % (0 - 5 %) 1.3 Basophils % (0.0 - 2.0 %) 0.2 Absolute Granulocytes (1.4 - 6.5 /CUMM) 6.0 Absolute Lymphocytes (1.2 - 3.4 /CUMM) 1.0 L Absolute Monocytes (0.10 - 0.60 /CUMM) 0.5 Absolute Eosinophils (0.0 - 0.7 /CUMM) 0.1 Absolute Basophils (0.0 - 0.2 /CUMM) 0
[2018-02-15 15:07] VITALS: BP 134/61
--- NOTE | 2018-02-15 16:31 | RADIOLOGY REPORT ---
EXAMINATION: XR ABDOMEN MULTIPLE VIEWS CLINICAL INDICATION: Severe abdominal pain. Evaluate for perforation. COMPARISON: Portable chest x-ray 02/14/2018. TECHNIQUE: 2 views of the abdomen. FINDINGS: There is scattered gas in the transverse colon without any significant distention. No free air seen. There are no air-fluid levels. There is no organomegaly. Mild degenerative spondylosis lumbar spine is noted. Incidental note is made of bilateral blunting of CP angles from underlying effusion and atelectasis. IMPRESSION: No evidence of free air or air-fluid levels to suggest any perforation or obstruction. No organomegaly.
[2018-02-15 21:15] VITALS: BP 131/98
[2018-02-16 06:36] VITALS: BP 134/76
--- NOTE | 2018-02-16 08:38 | PN- Housestaff ---
Kellee Carrington 02/16/18 0838: Subjective Follow-up For: Pancreatitis Colitis Subjective: Patient is seen and examined. He continues to report of abdominal discomfort. CAT scan abdomen and pelvis was significant for colitis from 02/15/18. He has been afebrile his blood pressure is stable. No leukocytosis. Patient denies any headache/dizziness/chest pain/burning micturition. He does report of abdominal distention and diarrhea that began when he came to the hospital. Review of Systems Constitutional: Reports: see HPI. Objective Last 24 Hrs of Vital Signs/I&O Vital Signs Date Time Temp Pulse Resp B/P B/P Pulse O2 O2 Flow FiO2 Mean Ox Delivery Rate 02/16 0636 98.6 73 20 134/76 92 02/15 2115 98.2 73 20 131/98 94 Room Air 02/15 1600 Room Air 02/15 1507 97.4 69 18 134/61 97 Room Air Intake & Output 02/16 1600 02/16 0800 02/16 0000 Intake Total 960 660 Output Total 750 375 Balance 210 285 Intake, IV 840 660 Intake, Oral 120 0 Number 0 Bowel Movements Output, Urine 750 375 Physical Exam General Appearance: Alert, Oriented X3, Cooperative, Mild Distress Skin: No Rashes, No Breakdown HEENT: Atraumatic Neck: Supple Cardiovascular: Regular Rate, Normal S1, Normal S2 Lungs: Clear to Auscultation, Normal Air Movement Abdomen: TENDER ON RIGHT LOWER QUADRANT Extremities: No Edema Assessment/Plan Assessment: Mr. Bynum is a 52yo M w/ PMH of diverticulitis, kidney stones s/p lithotripsy, gallstones s/p cholecystectomy, s/p Pippa procedure w/ temporary colostomy followed by revision in 2015, s/p hernia repair, reversible ischemia on nuclear stress test status post cardiac cath recently in 2014 presented to [facility] w/ N/V/D/severe intermittent ab pain since 1pm of 02/03/2018, endorseed loose BM x 1 on 02/03 but none since, w/ intermittent non-bloody vomiting, mostly foods. Problem list #1 pancreatitis #2 hypokalemia-resolved #3 nicotine dependence #4 diarrhea Assessment and plan Patient continues to report of abdominal discomfort, he was made n.p.o. yesterday, will start him on liquid diet today. Can consider low-fat regular diet if pain is better controlled. Patient continues to be on Dilaudid 2 mg every 3 as needed. Patient had a CT abdomen done yesterday which is significant for colitis, will send his stool C. difficile/culture/ova and parasite. He does not report of any respiratory symptoms, we will continue to monitor the pulmonary effusions which could be secondary to his pancreatitis. We will follow GI recommendations. DVT prophylaxis Lovenox + ALPS Full Code Problem List: 1. Pancreatitis, acute Pain Ratin Pain Location: ABDOMEN Pain Goal: Pain 4 or less Pain Plan: DILAUDID/OXYCODON Tomorrow's Labs & Rationales: NONE Reagan Kirkland MD 02/16/18 1307: Attending MD Review Statement Attending Statement Attending MD Statement: examined this patient, discuss w/resident/PA/WALLBOARD WORKER, agreed w/resident/PA/WALLBOARD WORKER, reviewed EMR data (avail), reviewed images Attending Assessment/Plan: Mr. Bynum was interviewed and examined. His EMR was reviewed. He notes development of diarrhea which he states has been present since his admission. He does note improvement in his abdominal pain. He has remained afebrile. His other vital signs are stable. He is in no acute distress today. Chest exam shows equal breath sounds and is clear. Heart exam reveals a regular rate and rhythm. Abdominal exam reveals normal bowel sounds with epigastric and right middle fossa tenderness to palpation CBCT is stable with a normal WBC. He continues to be mildly hyponatremic and has a borderline potassium but normal renal function. LFTs today are normal. Abdominal film from yesterday showed no free air. Abdominal CT also from yesterday showed some improvement in his pancreatitis and new right-sided bowel wall thickening consistent with colitis. We are continuing to follow his pancreatitis. Symptomatically he seemed improved today. We have advanced his diet to low-fat full liquids. We have ordered stool studies given his development of diarrhea. We are continuing his other maintenance medications.
--- NOTE | 2018-02-16 08:38 | CT SCAN REPORT ---
EXAMINATION: CT ABDOMEN AND PELVIS WITH CONTRAST CLINICAL INFORMATION: Worsening fever. Evaluate for abscess. Recurrent pancreatitis. COMPARISON: None TECHNIQUE: Multidetector volumetric imaging was performed of the abdomen and pelvis following IV administration of 95 mL of Optiray 320 intravenous contrast. Sagittal and coronal reformatted images were obtained on the technologist's workstation. DLP: 964.94 mGy-cm FINDINGS: LUNG BASES: Minimally increased small bilateral pleural effusions, right greater than left. Consolidative changes within the adjacent lung consistent with compression atelectasis. Coronary artery calcifications. LIVER, GALLBLADDER, AND BILIARY TREE: The liver is normal in size, shape, and attenuation. No focal hepatic lesion. Minimal intrahepatic biliary dilatation likely secondary to cholecystectomy. PANCREAS: The pancreas is diffusely edematous without areas of defined necrosis. There is extensive peripancreatic fluid present, similar in volume and distribution to the prior study. There may, in fact, be decreasing fluid within the left upper quadrant (compare series 602 image 57, on the current study to series 602 image 60 of the prior study dated 02/10/2018). There has been minimal interval organization of the fluid collections with thin enhancing mascorro. SPLEEN: Unremarkable. ADRENAL GLANDS: Unremarkable. KIDNEYS AND URETERS: The kidneys are normal in size, shape, and attenuation. No hydronephrosis, hydroureter, or calculi seen. No perinephric stranding. BLADDER: Unremarkable. GASTROINTESTINAL TRACT: The patient is status post sigmoidectomy. There is mild wall thickening and prominence of the submucosal fat involving the right colon from the cecum to the hepatic flexure. No evidence of bowel obstruction. The appendix is unremarkable. ABDOMINAL WALL: Haziness of the subcutaneous fat especially in the flank regions. No significant abdominal wall hernia. LYMPH NODES: No lymphadenopathy within the abdomen or pelvis. Prominent lymph nodes at the kobe hepatis and retroperitoneum, possibly reactive. VASCULAR: Atherosclerosis of the abdominal aorta without evidence of aneurysm. 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 PELVIC VISCERA: Prostate calcifications. OSSEOUS STRUCTURES: Degenerative changes of the spine. No acute or suspicious osseous abnormality. IMPRESSION: 1. Similar appearance of the pancreas with diffuse edema without definite areas of necrosis. There are acute peripancreatic fluid collections seen, possibly decreasing since the prior study as detailed above. There is slightly increased organization with thin enhancing mascorro. 2. Right colonic wall thickening and submucosal fat proliferation, new since 11/22/2017. Whether this is representing acute colitis versus reaction to the closely adjacent fluid collections and pancreatitis is unclear. Clinical correlation requested. 3. Other chronic, nonacute findings as above.
--- NOTE | 2018-02-16 12:39 | PN- Gastroenterology ---
Assessment/Plan GI Assessment/Recommendations: Smoldering pancreatitis with persistent pain and abdominal distention. Day 13 hospitalization. Etiology of pancreatitis unclear, with negative MRCP for choledocholithiasis. CT scan with mild improvement, and no evident pancreatic ascites. Liver enzymes remain normal. Recommendations * Low-fat diet (discussed with patient) * Follow-up C-reactive protein * Continue narcotic analgesics Subjective Subjective: Continues to have abdominal pain, albeit slightly less today. No nausea, vomiting, fever. Objective Vital Signs and I&Os Vital Signs Date Time Temp Pulse Resp B/P B/P Pulse O2 O2 Flow FiO2 Mean Ox Delivery Rate 02/16 0636 98.6 73 20 134/76 92 02/15 2115 98.2 73 20 131/98 94 Room Air 02/15 1600 Room Air 02/15 1507 97.4 69 18 134/61 97 Room Air Intake & Output 02/16 1600 02/16 0400 02/15 1600 02/15 0400 02/14 1600 02/14 0400 Intake Total 049 483 1934 1340 2400 1020 Output Total 750 375 407 137 7857 428 Balance 269 980 1059 690 1150 592 Intake, IV 668 368 0836 300 1600 620 Intake, Oral 120 0 1100 1040 800 400 Number 0 1 1 0 Bowel Movements Output, Urine 750 375 505 871 4056 428 Physical Exam: Alert and oriented. Appears more comfortable than yesterday. Sclera anicteric. Abdomen mildly distended, tender in the epigastrium Current Medications: Current Medications Sig/Oz Start time Last Medication Dose Route Stop Time Status Admin Heparin Sodium 5,000 UNIT Q8 02/04 0602/16 (Porcine) SC 0525 Hydromorphone HCl 3 MG Q3P PRN 02/15 1500 02/16 IV 1220 Hydromorphone HCl 2 MG Q3P PRN 02/12 1545 DC 02/15 IV 1224 Lactated Ringer's 1,000 ML Q10H 02/10 0802/16 IV 0306 Nicotine 7 MG DAILY 02/04 0902/16 TOP 0937 Omeprazole 40 MG DAILY AC 02/07 0700 02/16 PO 0525 Ondansetron HCl 4 MG Q6P PRN 02/04 0245 AC 02/11 IV 1439 Oxycodone HCl 10 MG Q4P PRN 02/10 0315 02/16 PO 1123 Pregabalin 25 MG BID 02/09 1408 02/16 PO 0937 Results Pertinent Lab Results: Laboratory Tests 02/15 02/14 0625 1618 Chemistry Sodium (137 - 145 mmol/L) 133 L Potassium (3.5 - 5.1 mmol/L) 3.6 Chloride (98 - 107 mmol/L) 99 Carbon Dioxide (22 - 30 mmol/L) 31 H Anion Gap (5 - 16) 4 L BUN (9 - 20 mg/dL) 5 L Creatinine (0.7 - 1.2 mg/dL) 0.7 Estimated GFR (>60 ml/min) > 60 BUN/Creatinine Ratio (7 - 25 %) 7.1 Total Bilirubin (0.2 - 1.3 mg/dL) 0.7 Direct Bilirubin (< 0.4 mg/dL) 0.4 AST (17 - 59 U/L) 42 ALT (21 - 72 U/L) 56 Alkaline Phosphatase (< 127 U/L) 82 Troponin I (<0.11 ng/ml) < 0.01 Total Protein (6.3 - 8.2 g/dL) 5.1 L Albumin (3.5 - 5.0 g/dL) 2.4 L Lipase (23 - 300 U/L) 212 Hematology CBC w Diff NO MAN DIFF REQ WBC (4.8 - 10.8 /CUMM) 7.6 RBC (4.70 - 6.10 /CUMM) 3.89 L Hgb (14.0 - 18.0 G/DL) 11.9 L Hct (42 - 52 %) 34.8 L MCV (80.0 - 94.0 FL) 89.4 MCH (27.0 - 31.0 PG) 30.5 MCHC (33.0 - 37.0 G/DL) 34.2 RDW (11.5 - 14.5 %) 13.5 Plt Count (130 - 400 /CUMM) 303 MPV (7.4 - 10.4 FL) 7.8 Gran % (42.2 - 75.2 %) 78.6 H Lymphocytes % (20.5 - 51.1 %) 13.5 L Monocytes % (1.7 - 9.3 %) 6.4 Eosinophils % (0 - 5 %) 1.3 Basophils % (0.0 - 2.0 %) 0.2 Absolute Granulocytes (1.4 - 6.5 /CUMM) 6.0 Absolute Lymphocytes (1.2 - 3.4 /CUMM) 1.0 L Absolute Monocytes (0.10 - 0.60 /CUMM) 0.5 Absolute Eosinophils (0.0 - 0.7 /CUMM) 0.1 Absolute Basophils (0.0 - 0.2 /CUMM) 0 Imaging/Other Studies: CT scan with IV contrast: Similar appearance of the pancreas with diffuse edema without definite areas of necrosis. There are acute peripancreatic fluid collections seen, possibly decreasing since the prior study as detailed above. There is slightly increased organization with thin enhancing mascorro.
[2018-02-16 14:39] VITALS: BP 120/58
[2018-02-16 21:27] VITALS: BP 127/84
[2018-02-17 06:33] VITALS: BP 116/68
--- NOTE | 2018-02-17 07:55 | PN- Housestaff ---
Subjective Follow-up For: pancreatitis colitis with diarrhea Subjective: patient has been very slowly improving. his vitals are stable. he has less pain and is on full liquid diet. he continues to have mild diarrhea. he continues to require dilaudid. Review of Systems Constitutional: Reports: no symptoms. Cardiovascular: Reports: no symptoms. Respiratory: Reports: no symptoms. Gastrointestinal: Reports: abdominal pain, diarrhea. Musculoskeletal: Reports: no symptoms. Objective Last 24 Hrs of Vital Signs/I&O Vital Signs Date Time Temp Pulse Resp B/P B/P Pulse O2 O2 Flow FiO2 Mean Ox Delivery Rate 02/17 2203 97.6 76 20 124/64 92 02/17 1422 98.0 70 20 130/84 94 02/17 0800 94 Room Air 02/17 0633 98.3 64 18 116/68 92 Intake & Output 02/17 1600 02/17 0800 02/17 0000 Intake Total 2839 098 2511 Output Total 8712 465 2826 Balance 399 200 200 Intake, IV 800 800 600 Intake, Oral 800 800 Number 1 Bowel Movements Output, Stool 1 Output, Urine 4632 826 9267 Physical Exam General Appearance: Alert, Oriented X3, Cooperative, No Acute Distress Cardiovascular: Regular Rate, Normal S1, Normal S2, No Murmurs Lungs: Clear to Auscultation Abdomen: Normal Bowel Sounds, Soft, No Hepatospenomegaly Current Medications: Current Medications Sig/Oz Start time Last Medication Dose Route Stop Time Status Admin Heparin Sodium 5,000 UNIT Q8 02/04 06 AC 02/17 (Porcine) SC 2018 Hydromorphone HCl 2 MG Q3P PRN 02/17 1800 AC 02/17 IV 2215 Hydromorphone HCl 3 MG Q3P PRN 02/15 1500 DC 02/17 IV 1433 Lactated Ringer's 1,000 ML Q10H 02/10 08 AC 02/17 IV 1543 Nicotine 7 MG DAILY 02/04 0900 AC 02/17 TOP 0744 Omeprazole 40 MG DAILY AC 02/07 0700 AC 02/17 PO 0624 Ondansetron HCl 4 MG Q6P PRN 02/04 0245 AC 02/17 IV 1827 Oxycodone HCl 10 MG Q4P PRN 02/10 0315 AC 02/17 PO 2018 Pregabalin 25 MG BID 02/09 1408 AC 02/17 PO 2018 Last 24 Hrs of Lab/Steven Results Last 24 Hrs of Labs/Mics: Laboratory Tests 02/17/18 0725: Anion Gap 4 L, Estimated GFR > 60, BUN/Creatinine Ratio 6.3 L, C-Reactive Prot , Quant 6.0 H, C-React Prot High Sens > 15.0 H Assessment/Plan Assessment: Mr. Bynum is a 52yo M w/ PMH of diverticulitis, kidney stones s/p lithotripsy, gallstones s/p cholecystectomy, s/p Pippa procedure w/ temporary colostomy followed by revision in 2015, s/p hernia repair, reversible ischemia on nuclear stress test status post cardiac cath recently in 2014 presented to [facility] w/ N/V/D/severe intermittent ab pain since 1pm of 02/03/2018, endorseed loose BM, w/ intermittent non-bloody vomiting, mostly foods. Problem list #1 smoldering pancreatitis #2 hypokalemia-resolved #3 nicotine dependence #4 diarrhea with evidence of colitis on ct abd Assessment and plan Patient continues to report of abdominal discomfort, he is currently on full liquid diet. Will switch to low fat diet today. Patient continues to be on Dilaudid 3mg every 3 as needed. We will attempt to wean narcotics as per GI. Patient had a CT abdomen done yesterday which is significant for colitis, stool studies negative. He does not report of any respiratory symptoms, we will continue to monitor the pulmonary effusions which could be secondary to his pancreatitis. We will follow GI recommendations. DVT prophylaxis Lovenox + ALPS Full Code Problem List: 1. Pancreatitis Pain Ratin Pain Location: epigastrum Pain Goal: Pain 4 or less Pain Plan: dilaudid roxicodone Tomorrow's Labs & Rationales: none
--- NOTE | 2018-02-17 13:41 | PN- Att Addend ---
Attending Addendum Attending Brief Note Patient looks a little better still on clears and pain meds. Vital signs stable no fever abdomen soft. Appreciate GIs imput and recommendations, increase diet again. Intake & Output 02/17 04002/15 040 Intake Total 800 1400 2560 660 2640 1340 Output Total 600 1200 1402 375 450 650 Balance 502 334 4365 285 2190 690 Intake, IV 655 440 7839 660 1540 300 Intake, Oral 800 920 0 1100 1040 Number 1 0 1 1 Bowel Movements Output, Stool 2 Output, Urine 600 1200 1400 375 450 650 Current Medications Sig/Oz Start time Last Medication Dose Route Stop Time Status Admin Heparin Sodium 5,000 UNIT Q8 02/04 06 AC 02/16 (Porcine) SC 1446 Hydromorphone HCl 3 MG Q3P PRN 02/15 1500 AC 02/17 IV 1131 Lactated Ringer's 1,000 ML Q10H 02/10 08 AC 02/17 IV 0746 Nicotine 7 MG DAILY 02/04 0900 AC 02/17 TOP 0744 Omeprazole 40 MG DAILY AC 02/07 0700 AC 02/17 PO 0624 Ondansetron HCl 4 MG Q6P PRN 02/04 0245 AC 02/11 IV 1439 Oxycodone HCl 10 MG Q4P PRN 02/10 0315 AC 02/17 PO 1022 Pregabalin 25 MG BID 02/09 1408 AC 02/17 PO 0744 Laboratory Tests 02/17/18 0725: Anion Gap 4 L, Estimated GFR > 60, BUN/Creatinine Ratio 6.3 L, C-Reactive Prot , Quant 6.0 H, C-React Prot High Sens > 15.0 H 02/15/18 0625: Anion Gap 4 L, Estimated GFR > 60, BUN/Creatinine Ratio 7.1, Total Bilirubin 0.7, Direct Bilirubin 0.4, AST 42, ALT 56, Alkaline Phosphatase 82, Total Protein 5.1 L, Albumin 2.4 L, Lipase 212, CBC w Diff NO MAN DIFF REQ, RBC 3.89 L, MCV 89.4, MCH 30.5, MCHC 34.2, RDW 13.5, MPV 7.8, Gran % 78.6 H, Lymphocytes % 13.5 L, Monocytes % 6.4, Eosinophils % 1.3, Basophils % 0.2, Absolute Granulocytes 6.0, Absolute Lymphocytes 1.0 L, Absolute Monocytes 0.5, Absolute Eosinophils 0.1, Absolute Basophils 0 02/14/18 1618: Troponin I < 0.01 Microbiology 02/16 172 STOOL: Cryptosporidium Antigen - RECD 02/16 172 STOOL: Giardia Antigen (WALDEMAR) - RECD 02/16 1220 STOOL: Clostridium difficile Toxin A & B - COMP Microbiology 02/17 1720 STOOL: Cryptosporidium Antigen - RECD 02/17 1720 STOOL: Giardia Antigen (WALDEMAR) - RECD 02/16 1220 STOOL: Clostridium difficile Toxin A & B - COMP Vital Signs Date Time Temp Pulse Resp B/P B/P Pulse O2 O2 Flow FiO2 Mean Ox Delivery Rate 02/17 0800 94 Room Air 02/17 0633 98.3 64 18 116/68 92 02/16 2127 97.9 63 19 127/84 95 Room Air 02/16 1556 18 93 Room Air Room Air 02/16 1439 98.2 71 18 120/58 92 Nasal Cannula
[2018-02-17 14:22] VITALS: BP 130/84
--- NOTE | 2018-02-17 19:36 | PN- Gastroenterology ---
Assessment/Plan GI Assessment/Recommendations: Smoldering pancreatitis with persistent pain and abdominal distention. Day 14 hospitalization. Etiology of pancreatitis unclear, with negative MRCP for choledocholithiasis. CT scan with mild improvement, and no evident pancreatic ascites. Liver enzymes remain normal. Recommendations * Low-fat diet (discussed with patient) * Continue narcotic analgesics * Consider changing Lyrica to gabapentin. Subjective Subjective: Slight improvement in pain. No nausea. Tolerating regular food. Objective Vital Signs and I&Os Vital Signs Date Time Temp Pulse Resp B/P B/P Pulse O2 O2 Flow FiO2 Mean Ox Delivery Rate 02/17 1422 98.0 70 20 130/84 94 02/17 0800 94 Room Air 02/17 0633 98.3 64 18 116/68 92 02/16 2127 97.9 63 19 127/84 95 Room Air Intake & Output 02/17 1600 02/17 0400 02/16 1600 02/16 0400 02/15 1600 02/15 0400 Intake Total 2400 1400 2560 660 2640 1340 Output Total 1801 1200 1402 375 450 650 Balance 536 438 6676 285 2190 690 Intake, IV 2096 096 0286 660 1540 300 Intake, Oral 800 800 920 0 1100 1040 Number 1 0 1 1 Bowel Movements Output, Stool 1 2 Output, Urine 1800 1200 1400 375 450 650 Physical Exam: Sclera anicteric. Abdomen with continued, diffuse tenderness. Current Medications: Current Medications Sig/Oz Start time Last Medication Dose Route Stop Time Status Admin Heparin Sodium 5,000 UNIT Q8 02/04 0602/17 (Porcine) SC 1433 Hydromorphone HCl 2 MG Q3P PRN 02/17 1800 AC 02/17 IV 1805 Hydromorphone HCl 3 MG Q3P PRN 02/15 1500 DC 02/17 IV 1433 Lactated Ringer's 1,000 ML Q10H 02/10 0802/17 IV 1543 Nicotine 7 MG DAILY 02/04 0902/17 TOP 0744 Omeprazole 40 MG DAILY AC 02/07 07 AC 02/17 PO 0624 Ondansetron HCl 4 MG Q6P PRN 02/04 0245 AC 02/17 IV 1827 Oxycodone HCl 10 MG Q4P PRN 02/10 0315 AC 02/17 PO 1543 Pregabalin 25 MG BID 02/09 1408 02/17 PO 0744 Results Pertinent Lab Results: Laboratory Tests 02/17 02/15 0796 2554 Chemistry Sodium (137 - 145 mmol/L) 134 L 133 L Potassium (3.5 - 5.1 mmol/L) 3.8 3.6 Chloride (98 - 107 mmol/L) 100 99 Carbon Dioxide (22 - 30 mmol/L) 30 31 H Anion Gap (5 - 16) 4 L 4 L BUN (9 - 20 mg/dL) 5 L 5 L Creatinine (0.7 - 1.2 mg/dL) 0.8 0.7 Estimated GFR (>60 ml/min) > 60 > 60 BUN/Creatinine Ratio (7 - 25 %) 6.3 L 7.1 Total Bilirubin (0.2 - 1.3 mg/dL) 0.7 Direct Bilirubin (< 0.4 mg/dL) 0.4 AST (17 - 59 U/L) 42 ALT (21 - 72 U/L) 56 Alkaline Phosphatase (< 127 U/L) 82 C-Reactive Prot, Quant (<1.0 mg/dL) 6.0 H C-React Prot High Sens (1.0 - 3.0 mg/L) > 15.0 H Total Protein (6.3 - 8.2 g/dL) 5.1 L Albumin (3.5 - 5.0 g/dL) 2.4 L Lipase (23 - 300 U/L) 212 Hematology CBC w Diff NO MAN DIFF REQ WBC (4.8 - 10.8 /CUMM) 7.6 RBC (4.70 - 6.10 /CUMM) 3.89 L Hgb (14.0 - 18.0 G/DL) 11.9 L Hct (42 - 52 %) 34.8 L MCV (80.0 - 94.0 FL) 89.4 MCH (27.0 - 31.0 PG) 30.5 MCHC (33.0 - 37.0 G/DL) 34.2 RDW (11.5 - 14.5 %) 13.5 Plt Count (130 - 400 /CUMM) 303 MPV (7.4 - 10.4 FL) 7.8 Gran % (42.2 - 75.2 %) 78.6 H Lymphocytes % (20.5 - 51.1 %) 13.5 L Monocytes % (1.7 - 9.3 %) 6.4 Eosinophils % (0 - 5 %) 1.3 Basophils % (0.0 - 2.0 %) 0.2 Absolute Granulocytes (1.4 - 6.5 /CUMM) 6.0 Absolute Lymphocytes (1.2 - 3.4 /CUMM) 1.0 L Absolute Monocytes (0.10 - 0.60 /CUMM) 0.5 Absolute Eosinophils (0.0 - 0.7 /CUMM) 0.1 Absolute Basophils (0.0 - 0.2 /CUMM) 0
[2018-02-17 22:03] VITALS: BP 124/64
[2018-02-18 06:39] VITALS: BP 140/86
--- NOTE | 2018-02-18 08:16 | PN- Housestaff ---
Subjective Follow-up For: Pancreatitis Colitis Uncontrolled pain Subjective: Patient seen and examined. He was started on a regular diet yesterday and developed severe abdominal pain after eating. Today he continues to be in pain and is still on Dilaudid 2 mg every 3 hours. His vital signs are stable. Patient continues to have diarrhea today and states that he had an episode where he "almost didn't make it to the bathroom". Review of Systems Constitutional: Reports: no symptoms. Cardiovascular: Reports: no symptoms. Respiratory: Reports: cough, sputum production. Gastrointestinal: Reports: abdominal pain. Genitourinary: Reports: no symptoms. Musculoskeletal: Reports: no symptoms. Skin: Reports: no symptoms. Objective Last 24 Hrs of Vital Signs/I&O Vital Signs Date Time Temp Pulse Resp B/P B/P Pulse O2 O2 Flow FiO2 Mean Ox Delivery Rate 02/18 1505 101.7 89 20 134/82 95 Room Air 02/18 0639 96.8 86 20 140/86 91 Room Air 02/17 2203 97.6 76 20 124/64 92 Intake & Output 02/18 1600 02/18 0800 02/18 0000 Intake Total 1080 1020 Output Total 1450 550 Balance -370 470 Intake, IV 840 300 Intake, Oral 240 720 Number 0 0 Bowel Movements Output, Urine 1450 550 Physical Exam General Appearance: Alert, Oriented X3, Cooperative, No Acute Distress Skin: No Rashes, No Breakdown, No Significant Lesion Skin Temp/Moisture Exam: Warm/Dry Sepsis Skin Exam (color): Normal for Ethnicity HEENT: Atraumatic, EOMI, Mucous Membr. moist/pink Cardiovascular: Regular Rate, Normal S1, Normal S2, No Murmurs Lungs: Clear to Auscultation, Normal Air Movement Abdomen: Normal Bowel Sounds, Soft, No Hepatospenomegaly, No Masses, most tender in epigastrium even to light palpation Neurological: Normal Speech Current Medications: Current Medications Sig/Oz Start time Last Medication Dose Route Stop Time Status Admin Gabapentin 300 MG Q8 02/18 1400 AC 02/18 PO 1326 Heparin Sodium 5,000 UNIT Q8 02/04 0600 AC 02/18 (Porcine) SC 1327 Hydromorphone HCl 2 MG Q3P PRN 02/17 1800 AC 02/18 IV 1434 Hydromorphone HCl 3 MG Q3P PRN 02/15 1500 DC 02/17 IV 1433 Insulin Human Regular 0 .STK-MED ONE 02/18 0041 DC .ROUTE Lactated Ringer's 1,000 ML Q10H 02/10 0800 AC 02/18 IV 1103 Nicotine 7 MG DAILY 02/04 0900 AC 02/18 TOP 0824 Omeprazole 40 MG DAILY AC 02/07 0700 AC 02/18 PO 0509 Ondansetron HCl 4 MG Q6P PRN 02/04 0245 AC 02/18 IV 1434 Oxycodone HCl 10 MG Q4P PRN 02/10 0315 AC 02/18 PO 1326 Pregabalin 25 MG BID 02/09 1408 DC 02/18 PO 0824 Assessment/Plan Assessment: Mr. Bynum is a 52yo M w/ PMH of diverticulitis, kidney stones s/p lithotripsy, gallstones s/p cholecystectomy, s/p Pippa procedure w/ temporary colostomy followed by revision in 2015, s/p hernia repair, reversible ischemia on nuclear stress test status post cardiac cath recently in 2014 presented to [facility] w/ N/V/D/severe intermittent ab pain since 1pm of 02/03/2018, endorseed loose BM, w/ intermittent non-bloody vomiting, mostly foods. Problem list #1 smoldering pancreatitis #2 hypokalemia-resolved #3 nicotine dependence #4 diarrhea with evidence of colitis on ct abd Assessment and plan Patient continues to report of abdominal discomfort, he is currently on low fat diet. When patient was switched to this diet yesterday, he started to complain of increased pain. It was stressed to the patient that he eats slowly and in small amounts. We will continue this diet for now as patient has been placed back on liquid diets multiple times during this admission. Patient continues to be on Dilaudid 2mg every 3 as needed. We will attempt to wean narcotics as per GI and have started gabapentin 300 mg 3 times a day instead of his Lyrica today. Patient had a CT abdomen and pelvis done 2 days ago which showed colitis, was found to be having diarrhea, stool studies unrevealing. Patient continues to have diarrhea, continue to check his BP and replete potassium as necessary. He does not report of any respiratory symptoms, we will continue to monitor the pulmonary effusions which could be secondary to his pancreatitis. We will follow GI recommendations. DVT prophylaxis Lovenox + ALPS Full Code Problem List: 1. Pancreatitis Pain Ratin Pain Location: Epigastrium Pain Goal: Pain 4 or less Pain Plan: Dilaudid 2 mg every 3 hours IV when necessary, Roxicodone 10 mg every 4 when necessary by mouth, gabapentin 300 mg every 8 by mouth Tomorrow's Labs & Rationales: None
--- NOTE | 2018-02-18 10:15 | PN- Att Addend ---
Attending Addendum Attending Brief Note Patient still complaining of a lot of pain. Despite the medical treatment. GI was consulted maybe change the Lyrica to gabapentin. Will get also pain management consultation see what else we can do. In the meantime patient will try sandwich for lunch. Vital signs are stable no fever no major changes on physical. Intake & Output 02/18 1600 02/18 0400 02/17 1600 02/17 0400 02/16 1600 02/16 0400 Intake Total 1080 1020 2400 1400 2560 660 Output Total 3012 295 9446 1200 1402 375 Balance -370 470 132 373 9224 285 Intake, IV 091 279 7889 600 1640 660 Intake, Oral 240 720 800 800 920 0 Number 0 0 1 0 Bowel Movements Output, Stool 1 2 Output, Urine 1963 926 6499 1200 1400 375 Current Medications Sig/Oz Start time Last Medication Dose Route Stop Time Status Admin Heparin Sodium 5,000 UNIT Q8 02/04 0600 AC 02/18 (Porcine) SC 0509 Hydromorphone HCl 2 MG Q3P PRN 02/17 1800 AC 02/18 IV 0809 Hydromorphone HCl 3 MG Q3P PRN 02/15 1500 DC 02/17 IV 1433 Insulin Human Regular 0 .STK-MED ONE 02/18 0041 DC .ROUTE Lactated Ringer's 1,000 ML Q10H 02/10 08 AC 02/18 IV 0147 Nicotine 7 MG DAILY 02/04 0900 AC 02/18 TOP 0824 Omeprazole 40 MG DAILY AC 02/07 0700 AC 02/18 PO 0509 Ondansetron HCl 4 MG Q6P PRN 02/04 0245 AC 02/17 IV 1827 Oxycodone HCl 10 MG Q4P PRN 02/10 0315 02/18 PO 0937 Pregabalin 25 MG BID 02/09 1408 AC 02/18 PO 0824 Laboratory Tests 02/17/18 0725: Anion Gap 4 L, Estimated GFR > 60, BUN/Creatinine Ratio 6.3 L, C-Reactive Prot , Quant 6.0 H, C-React Prot High Sens > 15.0 H Microbiology 02/16 1720 STOOL: Cryptosporidium Antigen - COMP 02/16 172 STOOL: Giardia Antigen ([facility]MAR) - COMP 02/16 1220 STOOL: Clostridium difficile Toxin A & B - COMP Microbiology 02/16 172 STOOL: Cryptosporidium Antigen - COMP 02/16 1720 STOOL: Giardia Antigen ([facility]MAR) - COMP 02/16 1220 STOOL: Clostridium difficile Toxin A & B - COMP Vital Signs Date Time Temp Pulse Resp B/P B/P Pulse O2 O2 Flow FiO2 Mean Ox Delivery Rate 02/18 0639 96.8 86 20 140/86 91 Room Air 02/17 2203 97.6 76 20 124/64 92 02/17 1422 98.0 70 20 130/84 94
[2018-02-18] MEDS ORDERED: NICOTINE PATCH1 EAC1 TOP (13:16)
[2018-02-18] MEDS ORDERED: GABAPENTIN300 M2 PO (13:16)
[2018-02-18 15:05] VITALS: BP 134/82
--- NOTE | 2018-02-18 16:20 | Event Note ---
See Addendum Event Note Event Note: S: Resident was called by nurse at around 4:05 PM on 02/18 as patient was found to have fever over 101. He was also vomiting after eating part of this damage, had recently had his diet advanced. Also was complaining of continued abdominal pain. B: Patient was admitted almost 2 weeks ago for smoldering pancreatitis, was placed on narcotic pain medications and was made nothing by mouth. He had an MRCP done which showed no stone, patient is status post cholecystectomy, not on this admission. No stone was found, was presumed to have passed. We have attempted to wean patient from narcotics and advance his diet multiple times. GI continues to see the patient and suggested switching his Lyrica to gabapentin for better pain control which we did today. Patient was previously found on CT scan to have pleural effusions presumed to be secondary to his pancreatitis. A: Patient continues to have epigastric pain even on light palpation. He is nauseous and previously vomited. He is laying in bed and appears acutely ill. Aside from the patient's temperature, his vitals are stable and he is saturating 95% on room air. This morning his saturations were 91 and 92%. The patient has no urinary symptoms, no cough. R: I have put in orders for blood cultures 2, urine culture, CBC, chest x-ray to search for potential infiltrate or growing effusion (the potential for infection of effusion). I placed a call to the GI service to discuss doing CT abdomen and pelvis to reassess for any necrotic pancreas. For now, as he was scanned 2 days ago, we will hold off rescanning him and assess tomorrow. Tano Ardon MD, health teacher, stated that if the patient gets worse, we may recheck out to one of the pancreas specialistS at [facility].
--- NOTE | 2018-02-18 17:34 | PN- Gastroenterology ---
Assessment/Plan GI Assessment/Recommendations: Smoldering pancreatitis with persistent pain, now most notably in the right upper quadrant. New fever, cough, but no shortness of breath. Etiology of pancreatitis unclear, with negative MRCP for choledocholithiasis. Recent CT scan with mild improvement, and no evident pancreatic ascites. Recommendations * Revert to nothing by mouth, IV fluids * Evaluation of fever to include CBC, CRP, LFTs, chest x-ray, urinalysis. * Continue narcotic analgesics and antiemetics. * May need to consider inpatient endoscopic ultrasound, which may require transfer Subjective Subjective: Continuing pain today, most notably in the right upper quadrant. The patient also has a cough which she claims is productive. Intermittent nausea and vomiting. Fever noted today. No dysuria, rash/skin lesion, pruritus. Objective Vital Signs and I&Os Vital Signs Date Time Temp Pulse Resp B/P B/P Pulse O2 O2 Flow FiO2 Mean Ox Delivery Rate 02/18 1632 101.7 02/18 1505 101.7 89 20 134/82 95 Room Air 02/18 0639 96.8 86 20 140/86 91 Room Air 02/17 2203 97.6 76 20 124/64 92 Intake & Output 02/18 1600 02/18 0400 02/17 1600 02/17 0400 02/16 1600 02/16 0400 Intake Total 1080 1020 2400 1400 2560 660 Output Total 7725 497 3320 1200 1402 375 Balance -370 470 670 262 1248 285 Intake, IV 133 309 0839 600 1640 660 Intake, Oral 240 720 800 800 920 0 Number 0 0 1 0 Bowel Movements Output, Stool 1 2 Output, Urine 3858 300 7512 1200 1400 375 Physical Exam: Alert and oriented. Skin without lesion. Sclera anicteric. Abdomen with exquisite tenderness to light palpation of the right upper quadrant, and more diffuse tenderness to mild/moderate palpation. Current Medications: Current Medications Sig/Oz Start time Last Medication Dose Route Stop Time Status Admin Acetaminophen 650 MG Q4P PRN 02/18 1630 AC 02/18 PO 1632 Acetaminophen 0 .STK-MED ONE 02/18 1627 DC PO Gabapentin 300 MG Q8 02/18 1400 AC 02/18 PO 1326 Heparin Sodium 5,000 UNIT Q8 02/04 0600 AC 02/18 (Porcine) SC 1327 Hydromorphone HCl 2 MG Q3P PRN 02/17 1800 AC 02/18 IV 1434 Insulin Human Regular 0 .STK-MED ONE 02/18 0041 DC .ROUTE Lactated Ringer's 1,000 ML Q10H 02/10 0800 AC 02/18 IV 1103 Nicotine 7 MG DAILY 02/04 0900 AC 02/18 TOP 0824 Omeprazole 40 MG DAILY AC 02/07 0700 AC 02/18 PO 0509 Ondansetron HCl 4 MG Q6P PRN 02/04 0245 AC 02/18 IV 1434 Oxycodone HCl 10 MG Q4P PRN 02/10 0315 AC 02/18 PO 1326 Pregabalin 25 MG BID 02/09 1408 DC 02/18 PO 0824 Results Pertinent Lab Results: Laboratory Tests 02/17 725 Chemistry Sodium (137 - 145 mmol/L) 134 L Potassium (3.5 - 5.1 mmol/L) 3.8 Chloride (98 - 107 mmol/L) 100 Carbon Dioxide (22 - 30 mmol/L) 30 Anion Gap (5 - 16) 4 L BUN (9 - 20 mg/dL) 5 L Creatinine (0.7 - 1.2 mg/dL) 0.8 Estimated GFR (>60 ml/min) > 60 BUN/Creatinine Ratio (7 - 25 %) 6.3 L C-Reactive Prot, Quant (<1.0 mg/dL) 6.0 H C-React Prot High Sens (1.0 - 3.0 mg/L) > 15.0 H
[2018-02-18 21:06] LABS: ABSOLUTE BASOPHIL COUNT 0 /CUMM (0.0-0.2); ABSOLUTE EOSINOPHIL COUNT 0 /CUMM (0.0-0.7); ABSOLUTE GRANULOCYTE CT 13.5 /CUMM (1.4-6.5); ABSOLUTE MONOCYTE COUNT 0.7 /CUMM (0.10-0.60); BASOPHIL % 0 % (0.0-2.0); EOSINOPHIL % 0.2 % (0-5); HEMATOCRIT 36.2 % (42-52); MEAN CORPUSCULAR HGB 30.7 PG (27.0-31.0); MEAN CORPUSCULAR HGB CONC 33.6 G/DL (33.0-37.0); MEAN CORPUSCULAR VOLUME 91.3 FL (80.0-94.0); MEAN PLATELET VOLUME 7.8 FL (7.4-10.4); RBC DISTRIBUTION WIDTH 14.3 % (11.5-14.5); RED BLOOD CELL CT 3.96 /CUMM (4.70-6.10)
[2018-02-18 21:26] LABS: PLATELET COUNT 456 /CUMM (130-400); WHITE BLOOD CELL COUNT 15.2 /CUMM (4.8-10.8)
--- NOTE | 2018-02-18 21:31 | RADIOLOGY REPORT ---
EXAMINATION: XR CHEST CLINICAL INFORMATION: Fever COMPARISON: CT abdomen pelvis 02/15/2018 and chest x-ray 02/14/2018 TECHNIQUE: 2 views of the chest were obtained. FINDINGS: Stable cardiac silhouette. Persistent bibasilar patchy opacities consistent with airspace disease overlying small pleural effusions. No pneumothorax. Degenerative changes of the spine. IMPRESSION: Stable bibasilar airspace disease and small pleural effusions.
[2018-02-18 21:47] LABS: GRANULOCYTE % 88.7 % (42.2-75.2)
[2018-02-18 22:20] VITALS: BP 124/69
[2018-02-19 06:35] VITALS: BP 128/74
--- NOTE | 2018-02-19 07:31 | Discharge Summary ---
Visit Information Visit Dates Admission Date: 02/04/18 Discharge Date: 02/19/18 Hospital Course Course Attending Physician: Yosvany QUINTERO,[facility] Course: Mr. Bynum is a 52yo M w/ PMH of diverticulitis, kidney stones s/p lithotripsy, gallstones s/p cholecystectomy, s/p Pippa procedure w/ temporary colostomy followed by revision in 2015, s/p hernia repair, reversible ischemia on nuclear stress test status post cardiac cath recently in 2014 presented to [facility] w/ N/V/D/severe intermittent ab pain since 1pm of 02/03/2018, endorseed loose BM x 1 on 02/03 but none since, w/ intermittent non-bloody vomiting, mostly foods. On admission, Vitals: stable afebrile, HTN 218/97 Physical exam as above. Pertinent findings include acute distress 2/2 pain w/ HTN on monitor, and epigastric and LLQ ab pain on palpation, decreased BS. Limited exam due to pain. -CBC: mild leukocytosis 11.5, otherwise WNL -CMP: WNl except Amylase/Lipase 3643/>52287, Tb/DB 2.4/1.4, AST/ALT 266/219, ALKP 196, trop -ve x 1, -AB CT: Allergies: Coded Allergies: meperidine (From DEMEROL) ("I GOT VERY MEAN" 12/08/15) Discharge Instructions Medications at Discharge Discharge Medications: Stop taking the following medications: Doxycycline Hyclate (Doxycycline Hyclate) 100 MG CAPSULE ORAL TWICE DAILY Qty = 12 Gabapentin (Gabapentin) 100 MG CAPSULE ORAL EVERY 8 HOURS Qty = 36 Polyethylene Glycol 3350 (Miralax) 17 GRAM/DOSE POWDER ORAL DAILY Qty = 30 Start taking the following new medications: Omeprazole (Omeprazole) 20 MG CAPSULE.DR 40 Milligram ORAL DAILY BEFORE BREAKFAST Qty = 30 No Refills Comments: LAST GIVEN 03/15/18 @ 0645 Nicotine (Nicotine Patch) 7 MG/24 HOUR PATCH.TD24 7 Milligram On the skin DAILY Qty = 30 No Refills Comments: NOT GIVEN Gabapentin (Gabapentin) 300 MG CAPSULE 300 Milligram ORAL EVERY 8 HOURS Qty = 60 No Refills Comments: LAST GIVEN 02/23/18 @ 1345 Ceftriaxone Sodium (Ceftriaxone) 1 GRAM VIAL 1,000 Milligram IV DAILY Qty = 7 No Refills Comments: LAST GIVEN 03/15/18 1700 Chlorpromazine HCl (Chlorpromazine HCl) 25 MG TABLET 25 Milligram ORAL EVERY SIX HOURS NEEDED as needed for hiccups Qty = 30 No Refills Comments: LAST GIVEN 03/15/18 @ 1415 Oxycodone HCl (Oxycodone HCl) 10 MG TABLET 1 Tablet ORAL EVERY 4 HOURS NEEDED Qty = 20 No Refills Comments: LAST GIVEN 03/14/18 @ 1999
--- NOTE | 2018-02-19 07:32 | PN- Housestaff ---
Subjective Follow-up For: Pancreatitis fevers Subjective: Seen and examined at bedside. he appears anxious and has reservation about being possibly transfeered to [facility] for EUS. 24 hr events of fevers noted. His abdominal pain is still peristing opiate therapy and is now being put back on NPO status. Review of Systems Constitutional: Reports: see HPI. Objective Last 24 Hrs of Vital Signs/I&O Vital Signs Date Time Temp Pulse Resp B/P B/P Pulse O2 O2 Flow FiO2 Mean Ox Delivery Rate 02/19 1225 101.8 02/19 1200 101.8 92 20 130/90 91 Room Air 02/19 1134 100.8 02/19 1131 100.8 02/19 0942 100.8 02/19 0800 93 Room Air 02/19 0635 100.5 92 18 128/74 91 Room Air 02/19 0000 Room Air 02/18 2220 99.8 82 20 124/69 95 Room Air 02/18 2011 99.0 02/18 1632 101.7 02/18 1505 101.7 89 20 134/82 95 Room Air Intake & Output 02/19 1600 02/19 0800 02/19 0000 Intake Total 900 360 Output Total 1050 Balance -150 360 Intake, IV 840 300 Intake, Oral 60 60 Number 0 0 Bowel Movements Output, Urine 1050 Physical Exam General Appearance: Alert, Oriented X3, Cooperative Cardiovascular: Regular Rate, Normal S1, Normal S2 Lungs: Clear to Auscultation, Normal Air Movement Abdomen: Tenderness on palaption of abdomen specifically RUQ Assessment/Plan Assessment: Mr. Bynum is a 52yo M w/ PMH of diverticulitis, kidney stones s/p lithotripsy, gallstones s/p cholecystectomy, s/p Pippa procedure w/ temporary colostomy followed by revision in 2016, s/p hernia repair, reversible ischemia on nuclear stress test status post cardiac cath recently in 2014 presented to [facility] w/ N/V/D/severe intermittent ab pain since 1pm of 02/03/2018, endorseed loose BM, w/ intermittent non-bloody vomiting, mostly foods. Problem list #1 smoldering pancreatitis. Etiology as of now unclear. Etoh and choledocoltihiasis ruled out (negative MRCP). #2 hypokalemia-resolved #3 nicotine dependence #4 diarrhea with evidence of colitis on ct abd Assessment and plan Patient continues to report abdominal pain and discomfort, refractory to moderate opiod doses. He was not able to tolerate clear liquid diet and now is back on NPO. His ERCP was negative for any stones/obstruction. He was pancultured yesterday for persistent fevers. His UA is postiive for GN bug, we will start him on ceftriaxone given the persistent fevers.CXR ruled pleural effusion as possible cause of fevers. There is concern that patient smoldering pancreatitis is worsening and he may require EUS at [facility]. Discussion of the case between Attending and the GI service is continuing and the plan is to get surgical input from doctor Dimas. We will continue with LR for fluid resucitation, bowel rest and pain management for now. Low threshold for transfer , if pt is amenable. Problem List: 1. Pancreatitis Pain Ratin Pain Location: abdominal Pain Goal: Pain 4 or less Pain Plan: PER PATHWAY Tomorrow's Labs & Rationales: bep cbc-infection
[2018-02-19 12:00] VITALS: BP 130/90
--- NOTE | 2018-02-19 13:55 | PN- Gastroenterology ---
Assessment/Plan GI Assessment/Recommendations: Smoldering pancreatitis with persistent pain, now most notably in the right upper quadrant. New fever and leukocytosis. Etiology of pancreatitis unclear, with negative MRCP for choledocholithiasis. Recommendations * Revert to nothing by mouth, IV fluids * May need TPN and bowel rest * Continue narcotic analgesics and antiemetics. * After discussion with Dr. Bar, have asked Dr. Roach to consult for surgical opinion. With fever and leukocytosis, may consider intra-abdominal fluid aspiration. Despite frequent imaging, may benefit from a repeat pancreatic protocol CT scan. * May need to consider inpatient endoscopic ultrasound, which may require transfer Subjective Subjective: Continuing pain, nausea and vomiting; now with fever Objective Vital Signs and I&Os Vital Signs Date Time Temp Pulse Resp B/P B/P Pulse O2 O2 Flow FiO2 Mean Ox Delivery Rate 02/19 1225 101.8 02/19 1200 101.8 92 20 130/90 91 Room Air 02/19 1134 100.8 02/19 1131 100.8 02/19 0942 100.8 02/19 0800 93 Room Air 02/19 0635 100.5 92 18 128/74 91 Room Air 02/19 0000 Room Air 02/18 2220 99.8 82 20 124/69 95 Room Air 02/18 2011 99.0 02/18 1632 101.7 02/18 1505 101.7 89 20 134/82 95 Room Air Intake & Output 02/19 1600 02/19 0400 02/18 1600 02/18 0400 02/17 1600 02/17 0400 Intake Total 862 160 6546 1020 2400 1400 Output Total 1050 4144 294 5220 1200 Balance -150 360 -370 470 599 200 Intake, IV 840 300 553 372 1550 600 Intake, Oral 60 60 240 720 800 800 Number 0 0 0 0 1 Bowel Movements Output, Stool 1 Output, Urine 1050 7532 695 3336 1200 Physical Exam: Sclera anicteric. Appears mildly ill. Abdomen distended, diffusely tender. No edema. Results Pertinent Lab Results: Laboratory Tests 02/19 02/19 02/18 0437 0025 2140 Chemistry Sodium (137 - 145 mmol/L) 130 L Potassium (3.5 - 5.1 mmol/L) 4.3 Chloride (98 - 107 mmol/L) 93 L Carbon Dioxide (22 - 30 mmol/L) 31 H Anion Gap (5 - 16) 5 BUN (9 - 20 mg/dL) 6 L Creatinine (0.7 - 1.2 mg/dL) 1.0 Estimated GFR (>60 ml/min) > 60 BUN/Creatinine Ratio (7 - 25 %) 6.0 L Lactic Acid (0.7 - 2.1 mmol/L) 1.1 Calcium (8.4 - 10.2 mg/dL) 7.9 L Total Bilirubin (0.2 - 1.3 mg/dL) 0.9 Direct Bilirubin (< 0.4 mg/dL) 0.3 AST (17 - 59 U/L) 21 ALT (21 - 72 U/L) 38 Alkaline Phosphatase (< 127 U/L) 65 Total Protein (6.3 - 8.2 g/dL) 5.4 L Albumin (3.5 - 5.0 g/dL) 2.6 L Lipase (23 - 300 U/L) 130 Urines Urine Color (YEL,AMB,STR) YEL Urine Clarity (CLEAR) CLEAR Urine pH (5.0 - 8.0) 7.5 Ur Specific [place] (1.001 - 1.035) 1.015 Urine Protein (NEG,<30 MG/DL) NEG Urine Ketones (NEG) NEG Urine Nitrite (NEG) NEG Urine Bilirubin (NEG) NEG Urine Urobilinogen (0.1 - 1.0 EU/dl) 2.0 H Ur Leukocyte Esterase (NEG) NEG Ur Microscopic EXAM NOT REQUIRED Urine Hemoglobin (NEG) NEG Urine Glucose (N MG/DL) NEG 02/18 07 Chemistry Sodium (137 - 145 mmol/L) 134 L Potassium (3.5 - 5.1 mmol/L) 3.8 Chloride (98 - 107 mmol/L) 100 Carbon Dioxide (22 - 30 mmol/L) 30 Anion Gap (5 - 16) 4 L BUN (9 - 20 mg/dL) 5 L Creatinine (0.7 - 1.2 mg/dL) 0.8 Estimated GFR (>60 ml/min) > 60 BUN/Creatinine Ratio (7 - 25 %) 6.3 L C-Reactive Prot, Quant (<1.0 mg/dL) 6.0 H C-React Prot High Sens (1.0 - 3.0 mg/L) > 15.0 H Hematology CBC w Diff NO MAN DIFF REQ WBC (4.8 - 10.8 /CUMM) 15.2 H RBC (4.70 - 6.10 /CUMM) 3.96 L Hgb (14.0 - 18.0 G/DL) 12.2 L Hct (42 - 52 %) 36.2 L MCV (80.0 - 94.0 FL) 91.3 MCH (27.0 - 31.0 PG) 30.7 MCHC (33.0 - 37.0 G/DL) 33.6 RDW (11.5 - 14.5 %) 14.3 Plt Count (130 - 400 /CUMM) 456 H MPV (7.4 - 10.4 FL) 7.8 Gran % (42.2 - 75.2 %) 88.7 H Lymphocytes % (20.5 - 51.1 %) 6.5 L Monocytes % (1.7 - 9.3 %) 4.6 Eosinophils % (0 - 5 %) 0.2 Basophils % (0.0 - 2.0 %) 0 Absolute Granulocytes (1.4 - 6.5 /CUMM) 13.5 H Absolute Lymphocytes (1.2 - 3.4 /CUMM) 1.0 L Absolute Monocytes (0.10 - 0.60 /CUMM) 0.7 H Absolute Eosinophils (0.0 - 0.7 /CUMM) 0 Absolute Basophils (0.0 - 0.2 /CUMM) 0
[2018-02-19 14:15] VITALS: BP 108/68
--- NOTE | 2018-02-19 15:22 | Cons- General Surgery ---
General Information and HPI Consulting Request Date of Consult: 02/19/18 Requested By: Rosalio Bar MD Reason for Consult: Pancreatitis History of Present Illness: This is a 52-year-old male who is well-known to the surgical service for unrelated surgical issues. Patient now presents with pancreatitis, etiology indeterminate. There was concern that maybe he had a primary bile duct stone that caused gallstone pancreatitis. Of note he is status post laparoscopic cholecystectomy 2005. Nevertheless patient was treated for pancreatitis with bowel rest and IV fluids and analgesics. His pain has since not improved. It worsens every time diet is initiated. He was started on medications for neurogenic pain in hopes that it would improve things. He had a regular diet yesterday and shortly thereafter developed worsening abdominal pain, nausea vomiting. There was new spiking fevers and new leukocytosis. Patient complains of severe right-sided abdominal pain. He is nauseous and anorexic. Complained of fevers chills and sweats last evening. None since. Allergies/Medications Allergies: Coded Allergies: meperidine (From DEMEROL) ("I GOT VERY MEAN" 12/08/15) Home Med List: Gabapentin 300 MG CAPSULE 300 MG PO Q8 PAIN Nicotine (Nicotine Patch) 7 MG/24 HOUR PATCH.TD24 7 MG TOP DAILY smoking cessation Omeprazole 20 MG CAPSULE.DR 40 MG PO DAILY AC gastric protection Current Medications: Current Medications Sig/Oz Start time Last Medication Dose Route Stop Time Status Admin Acetaminophen 650 MG Q4P PRN 02/18 1630 AC 02/19 PO 1131 Acetaminophen 0 .STK-MED ONE 02/18 1627 DC PO Ceftriaxone Sodium 1,000 MG Q24H 02/19 1400 AC 02/19 IV 1348 Gabapentin 300 MG Q8 02/18 1400 AC 02/19 PO 1341 Heparin Sodium 5,000 UNIT Q8 02/04 0600 AC 02/19 (Porcine) SC 1345 Hydromorphone HCl 2 MG Q3P PRN 02/17 1800 AC 02/19 IV 1408 Lactated Ringer's 1,000 ML Q10H 02/10 0800 AC 02/19 IV 1055 Nicotine 7 MG DAILY 02/04 0900 AC 02/19 TOP 0922 Omeprazole 40 MG DAILY AC 02/07 0700 AC 02/19 PO 0523 Ondansetron HCl 4 MG Q6P PRN 02/04 0245 AC 02/19 IV 1341 Oxycodone HCl 10 MG Q4P PRN 02/10 0315 AC 02/19 PO 0922 Past History Medical History Blood Transfusion Hx: No Neurological: NONE EENT: NONE Cardiovascular: hypertension Respiratory: NONE Gastrointestinal: diverticulitis, GERD Hepatic: cholelithiasis (01/30/06: [facility]) Renal: nephrolithiasis (s/p lithotripsy) Musculoskeletal: gout, ULNAR L ELBOW SURGERY R ROTATOR CUFF SURGERY Psychiatric: anxiety Endocrine: NONE Blood Disorders: NONE Cancer(s): NONE CLERICAL ADJUSTER/Reproductive: NONE Surgical History Pertinent Surgical History: cholecystectomy, colon resection (pearce's, s/p reversal), hernia repair-ventral, left cubital tunnel release LEFT COLOSTOMY S/P HARTMANS PROCEDURE with reversal; R ROTATOR CUFF REPAIR L ELBOW SURGERY Family History Relations & Conditions If Any: MOTHER (DM). , Age 58; Cause: Myocardial infarction. FHx: emphysema FATHER (smoker). , Age 66; Cause: COPD (chronic obstructive pulmonary disease). FH: diabetes mellitus Psychosocial History Where Do You Live? Home Who Do You Live With? self Services at Home: None Primary Language: Brazilian Smoking Status: Current Everyday Smoker (30 pack years) ETOH Use: denies use Illicit Drug Use: denies illicit drug use Living Will? no Power of Salt Miner/HCP? no Other Social History: Single. Lives with female roommate. No children. 30 pk yr cigarette smoker. No ETOH or illicit drugs. [facility]. Functional Ability ADLs Independent: dressing, eating, toileting, bathing. Ambulation: independent IADLs Independent: shopping, housework, finances, food prep, telephone, transportation , medication admin. Employment History Employment: Employed Profession/Employer: [employer] Review of Systems Review of Systems: Positive for fevers chills and sweats. Positive for nausea vomiting and abdominal pain. No chest pain no dyspnea no dysuria, remainder 12 points negative Exam & Diagnostic Data Vital Signs and I&O Vital Signs Date Time Temp Pulse Resp B/P B/P Pulse O2 O2 Flow FiO2 Mean Ox Delivery Rate 02/19 1400 98.3 02/19 1225 101.8 02/19 1200 101.8 92 20 130/90 91 Room Air 02/19 1134 100.8 02/19 1131 100.8 02/19 0942 100.8 02/19 0800 93 Room Air 02/19 0635 100.5 92 18 128/74 91 Room Air 02/19 0000 Room Air 02/18 2220 99.8 82 20 124/69 95 Room Air 02/18 2011 99.0 02/18 1632 101.7 Intake & Output 02/19 1600 02/19 0800 02/19 0000 02/18 1600 02/18 0802/18 0000 Intake Total 419 969 3651 1020 Output Total 1050 1450 550 Balance -150 360 -370 470 Intake, IV 840 300 840 300 Intake, Oral 60 60 240 720 Number 0 0 0 0 Bowel Movements Output, Urine 1050 1450 550 Physical Exam: General: He is overweight looks his stated age and is mild amount of distress. HEENT: Anicteric PERRLA EOMI Neck: Supple no adenopathy no JVD no thyromegaly Chest: Nontender normal respiratory excursion normal respiratory effort Abdomen: Healed midline surgical scar without recurrent hernia. It is soft throughout with focal guarding in the right upper quadrant/right midabdomen. No mass. Last 24 Hours of Labs: Laboratory Tests 02/19 02/19 02/18 0437 0025 2140 Chemistry Sodium (137 - 145 mmol/L) 130 L Potassium (3.5 - 5.1 mmol/L) 4.3 Chloride (98 - 107 mmol/L) 93 L Carbon Dioxide (22 - 30 mmol/L) 31 H Anion Gap (5 - 16) 5 BUN (9 - 20 mg/dL) 6 L Creatinine (0.7 - 1.2 mg/dL) 1.0 Estimated GFR (>60 ml/min) > 60 BUN/Creatinine Ratio (7 - 25 %) 6.0 L Lactic Acid (0.7 - 2.1 mmol/L) 1.1 Calcium (8.4 - 10.2 mg/dL) 7.9 L Total Bilirubin (0.2 - 1.3 mg/dL) 0.9 Direct Bilirubin (< 0.4 mg/dL) 0.3 AST (17 - 59 U/L) 21 ALT (21 - 72 U/L) 38 Alkaline Phosphatase (< 127 U/L) 65 Total Protein (6.3 - 8.2 g/dL) 5.4 L Albumin (3.5 - 5.0 g/dL) 2.6 L Lipase (23 - 300 U/L) 130 Urines Urine Color (YEL,AMB,STR) YEL Urine Clarity (CLEAR) CLEAR Urine pH (5.0 - 8.0) 7.5 Ur Specific [place] (1.001 - 1.035) 1.015 Urine Protein (NEG,<30 MG/DL) NEG Urine Ketones (NEG) NEG Urine Nitrite (NEG) NEG Urine Bilirubin (NEG) NEG Urine Urobilinogen (0.1 - 1.0 EU/dl) 2.0 H Ur Leukocyte Esterase (NEG) NEG Ur Microscopic EXAM NOT REQUIRED Urine Hemoglobin (NEG) NEG Urine Glucose (N MG/DL) NEG 02/19 2000 Hematology CBC w Diff NO MAN DIFF REQ WBC (4.8 - 10.8 /CUMM) 15.2 H RBC (4.70 - 6.10 /CUMM) 3.96 L Hgb (14.0 - 18.0 G/DL) 12.2 L Hct (42 - 52 %) 36.2 L MCV (80.0 - 94.0 FL) 91.3 MCH (27.0 - 31.0 PG) 30.7 MCHC (33.0 - 37.0 G/DL) 33.6 RDW (11.5 - 14.5 %) 14.3 Plt Count (130 - 400 /CUMM) 456 H MPV (7.4 - 10.4 FL) 7.8 Gran % (42.2 - 75.2 %) 88.7 H Lymphocytes % (20.5 - 51.1 %) 6.5 L Monocytes % (1.7 - 9.3 %) 4.6 Eosinophils % (0 - 5 %) 0.2 Basophils % (0.0 - 2.0 %) 0 Absolute Granulocytes (1.4 - 6.5 /CUMM) 13.5 H Absolute Lymphocytes (1.2 - 3.4 /CUMM) 1.0 L Absolute Monocytes (0.10 - 0.60 /CUMM) 0.7 H Absolute Eosinophils (0.0 - 0.7 /CUMM) 0 Absolute Basophils (0.0 - 0.2 /CUMM) 0 Imaging Results: CT scan of the abdomen and pelvis without contrast on admission dated 02/04 2018 was personally reviewed. Images show edematous pancreas and edematous duodenum. There is no free fluid, free air or peripancreatic fluid collections. CT scan of the abdomen and pelvis with oral and IV contrast dated 02/10/2018 was also reviewed personally. Images show persistent edema of the pancreas with new peripancreatic fluid collections in both the pancreatic tail but more so in the pancreatic head with tracking into the right paracolic gutter. CT scan of the abdomen pelvis with IV contrast dated 02/15/2018 was also personally reviewed. Images show persistent pancreatic edema and fluid collections. Fluid collections appear stable in size with evidence of organization. There is new edema around the right colon, likely inflammatory/ reactive in nature Assessment/Plan Assessment/Plan This is an unfortunate 52-year-old male with severe acute pancreatitis who is has since developed peripancreatic fluid collections. Given his worsened pain, fever and leukocytosis, there is concern this may represent an infected pancreatic pseudocyst. Alternatively, he may have persistent inflammatory response causing the fevers in the setting of sterile fluid. Given new onset fevers and leukocytosis, recommend interventional radiology aspirate the fluid in the right upper quadrant. Please do not place a drain. The fluid should be sampled and sent for culture. Treatment of his pancreatic infection will be determined pending the results. For future reference, would hold on starting antibiotics until a source is identified. Given the persistence of his pancreatitis and inability to tolerate a diet, recommend PICC line placement for institution of TPN, NPO except meds/sips water. Problem List: 1. Pancreatitis, acute 2. Pseudocyst of pancreas Consult Acknowledgment - Thank you for your consult request.
--- NOTE | 2018-02-19 15:30 | PN- Att Addend ---
Attending Addendum Attending Brief Note Patient still in pain, each time the diet is advanced to complaints of more pain. Temp max 101.8 the rest the rest of the vital signs are stable. His abdomen is soft but middle card tender. I discussed the case with GI still concerned about continuing pain and suggested second opinion with surgery see if we need any other diagnostic testing, also consider TPN and keeping the patient n.p.o.. Intake & Output 02/19 1600 02/19 0400 02/18 1600 02/18 0400 02/17 1600 02/17 0400 Intake Total 556 524 4632 1020 2400 1400 Output Total 1050 6273 888 5068 1200 Balance -150 360 -370 470 599 200 Intake, IV 840 300 281 419 4483 600 Intake, Oral 60 60 240 720 800 800 Number 0 0 0 0 1 Bowel Movements Output, Stool 1 Output, Urine 1050 5149 711 3891 1200 Current Medications Sig/Oz Start time Last Medication Dose Route Stop Time Status Admin Acetaminophen 650 MG Q4P PRN 02/18 1630 AC 02/19 PO 1131 Acetaminophen 0 .STK-MED ONE 02/18 1627 DC PO Ceftriaxone Sodium 1,000 MG Q24H 02/19 1400 AC 02/19 IV 1348 Gabapentin 300 MG Q8 02/18 1400 AC 02/19 PO 1341 Heparin Sodium 5,000 UNIT Q8 02/04 0600 02/19 (Porcine) SC 1345 Hydromorphone HCl 2 MG Q3P PRN 02/17 1800 AC 02/19 IV 1408 Lactated Ringer's 1,000 ML Q10H 02/10 0802/19 IV 1055 Nicotine 7 MG DAILY 02/04 0902/19 TOP 0922 Omeprazole 40 MG DAILY AC 02/07 0700 02/19 PO 0523 Ondansetron HCl 4 MG Q6P PRN 02/04 0245 02/19 IV 1341 Oxycodone HCl 10 MG Q4P PRN 02/10 0315 02/19 PO 0922 Laboratory Tests 02/19/18 0437: Urine Color YEL, Urine Clarity CLEAR, Urine pH 7.5, Ur Specific [place] 1.015, Urine Protein NEG, Urine Ketones NEG, Urine Nitrite NEG, Urine Bilirubin NEG, Urine Urobilinogen 2.0 H, Ur Leukocyte Esterase NEG, Ur Microscopic EXAM NOT REQUIRED, Urine Hemoglobin NEG, Urine Glucose NEG 02/19/18 0025: Lactic Acid 1.1 02/18/18 2140: Anion Gap 5, Estimated GFR > 60, BUN/Creatinine Ratio 6.0 L, Calcium 7.9 L, Total Bilirubin 0.9, Direct Bilirubin 0.3, AST 21, ALT 38, Alkaline Phosphatase 65, Total Protein 5.4 L, Albumin 2.6 L, Lipase 130 02/18/181999: CBC w Diff NO MAN DIFF REQ, RBC 3.96 L, MCV 91.3, MCH 30.7, MCHC 33.6, RDW 14.3 , MPV 7.8, Gran % 88.7 H, Lymphocytes % 6.5 L, Monocytes % 4.6, Eosinophils % 0.2, Basophils % 0, Absolute Granulocytes 13.5 H, Absolute Lymphocytes 1.0 L, Absolute Monocytes 0.7 H, Absolute Eosinophils 0, Absolute Basophils 0 02/17/18 0725: Anion Gap 4 L, Estimated GFR > 60, BUN/Creatinine Ratio 6.3 L, C-Reactive Prot , Quant 6.0 H, C-React Prot High Sens > 15.0 H Microbiology 02/19 2000 BLOOD: Blood Culture - RES 02/18 174 LOWER RESP: Respiratory Culture - CAN Cancelled: SPECIMEN NOT RECEIVED IN LABORATORY 02/18 1741 LOWER RESP: Gram Stain - CAN Cancelled: SPECIMEN NOT RECEIVED IN LABORATORY 02/19 1740 BLOOD: Blood Culture - RES 02/18 1705 URINE ROUT: Urine Culture - RES GRAM NEGATIVE RODS 02/17 1720 STOOL: Cryptosporidium Antigen - COMP 02/17 1720 STOOL: Giardia Antigen (WALDEMAR) - COMP Microbiology 02/19 2000 BLOOD: Blood Culture - RES 02/18 174 LOWER RESP: Respiratory Culture - CAN Cancelled: SPECIMEN NOT RECEIVED IN LABORATORY 02/18 174 LOWER RESP: Gram Stain - CAN Cancelled: SPECIMEN NOT RECEIVED IN LABORATORY 02/19 1740 BLOOD: Blood Culture - RES 02/18 170 URINE ROUT: Urine Culture - RES GRAM NEGATIVE RODS 02/16 172 STOOL: Cryptosporidium Antigen - COMP 02/17 1720 STOOL: Giardia Antigen (WALDEMAR) - COMP Vital Signs Date Time Temp Pulse Resp B/P B/P Pulse O2 O2 Flow FiO2 Mean Ox Delivery Rate 02/19 1400 98.3 02/19 1225 101.8 02/19 1200 101.8 92 20 130/90 91 Room Air 02/19 1134 100.8 02/19 1131 100.8 02/19 0942 100.8 02/19 0800 93 Room Air 02/19 0635 100.5 92 18 128/74 91 Room Air 02/19 0000 Room Air 02/18 2220 99.8 82 20 124/69 95 Room Air 02/18 2011 99.0 02/18 1632 101.7
--- NOTE | 2018-02-19 20:39 | CT SCAN REPORT ---
EXAMINATION: CT ABDOMEN WITHOUT AND WITH CONTRAST CLINICAL INFORMATION: Smoldering pancreatitis with new persistent fever. COMPARISON: 02/15/2018 TECHNIQUE: Contiguous axial thin section helical images of the abdomen were performed before and after the administration of oral contrast and 95 mL Optiray 320 intravenous contrast. The data set was reformatted in the coronal and sagittal planes and reviewed on an independent workstation. DLP: 1130.12 mGy-cm FINDINGS: LUNG BASES: Bilateral pleural effusions and lower lobe atelectasis/collapse is unchanged. Small paracardiac lymph nodes, unchanged. LIVER, GALLBLADDER, AND BILIARY TREE: The liver is normal in size, shape, and attenuation. No focal hepatic lesion or biliary ductal dilatation is present. The mild bile duct prominence is unchanged status post cholecystectomy. PANCREAS: Once again seen is marked edema of the pancreas with surrounding fluid collections, no devascularized areas are seen to suggest necrosis. Again noted is the enhancing fluid collection to the right of the pancreatic head beneath the liver. This cystic collection which we were planning on aspirating tomorrow. There is associated thickening and edema involving the visualized portion of the right colon which is adjacent to this. This was noted previously. SPLEEN: Unremarkable. ADRENAL GLANDS: Unremarkable. KIDNEYS AND URETERS: The kidneys are normal in size, shape, and attenuation. No hydronephrosis, hydroureter, or calculi seen. No perinephric stranding. GASTROINTESTINAL TRACT: The small and large bowel are unremarkable. The appendix is unremarkable. ABDOMINAL WALL: No significant hernia is appreciated. LYMPH NODES: Once again seen are some small lymph nodes around the kobe hepatis and in the retroperitoneum which are probably reactive. VASCULAR: Inflammatory process surrounds the celiac and mesenteric vessels but no pseudoaneurysms are seen. OSSEOUS STRUCTURES: Degenerative changes present in the spine. No bony destructive lesions seen. IMPRESSION: Unchanged inflammatory process involving the pancreas with peripancreatic fluid collections with one more organized discrete collection on the right abdomen just beneath the liver. This is the collection for which a request has been made to aspirate tomorrow. The associated right colonic wall thickening and inflammatory changes remain present as well.
[2018-02-19 21:37] VITALS: BP 116/64
[2018-02-20 05:49] VITALS: BP 120/68
--- NOTE | 2018-02-20 06:44 | PN- Housestaff ---
Subjective Follow-up For: Smoldering pancreatitis Subjective: Patient seen and examined at bedside. He reports that his abdominal pain is improved compared to previous days. 24 hour events of fevers noted. He is nothing by mouth and is scheduled to have IR procedure to aspirate his fluid collection the right upper quadrant area. Is also scheduled to have PICC line placed for TPN. Review of Systems Constitutional: Reports: see HPI. Objective Last 24 Hrs of Vital Signs/I&O Vital Signs Date Time Temp Pulse Resp B/P B/P Pulse O2 O2 Flow FiO2 Mean Ox Delivery Rate 02/20 0549 99.2 91 20 120/68 95 Room Air 02/19 2152 98.0 02/19 2137 100.1 79 20 116/64 96 Room Air 02/19 1415 98.3 78 18 108/68 96 Room Air 02/19 1400 98.3 02/19 1225 101.8 02/19 1200 101.8 92 20 130/90 91 Room Air 02/19 1134 100.8 02/19 1131 100.8 02/19 0942 100.8 Intake & Output 02/20 1600 02/20 0800 02/20 0000 Intake Total 800 400 Output Total 400 450 Balance 400 -50 Intake, IV 800 400 Output, Urine 400 450 Physical Exam General Appearance: Alert, Oriented X3, Cooperative Cardiovascular: Regular Rate, Normal S1, Normal S2 Abdomen: tenderness on moderate palaption of RUQ area. Assessment/Plan Assessment: Mr. Bynum is a 52yo M w/ PMH of diverticulitis, kidney stones s/p lithotripsy, gallstones s/p cholecystectomy, s/p Pippa procedure w/ temporary colostomy followed by revision in 2015, s/p hernia repair, reversible ischemia on nuclear stress test status post cardiac cath recently in 2014 presented to [facility] w/ N/V/D/severe intermittent ab pain since 1pm of 02/03/2018, endorseed loose BM, w/ intermittent non-bloody vomiting, mostly foods. Problem list #1 smoldering pancreatitis. Etiology as of now unclear. Etoh and choledocoltihiasis ruled out (negative MRCP). #2 hypokalemia-resolved #3 nicotine dependence #4 diarrhea with evidence of colitis on ct abd Problem List: 1. Pancreatitis Pain Ratin Pain Location: RUQ Pain Goal: Pain 4 or less Pain Plan: PER PATHWAY Tomorrow's Labs & Rationales: CBC
[2018-02-20 08:40] LABS: ABSOLUTE BASOPHIL COUNT 0 /CUMM (0.0-0.2); ABSOLUTE EOSINOPHIL COUNT 0 /CUMM (0.0-0.7); ABSOLUTE GRANULOCYTE CT 14.6 /CUMM (1.4-6.5); ABSOLUTE LYMPH COUNT 0.4 /CUMM (1.2-3.4); ABSOLUTE MONOCYTE COUNT 0.7 /CUMM (0.10-0.60); BASOPHIL % 0 % (0.0-2.0); EOSINOPHIL % 0.1 % (0-5); GRANULOCYTE % 93.2 % (42.2-75.2); HEMATOCRIT 31.4 % (42-52); MEAN CORPUSCULAR HGB 31.2 PG (27.0-31.0); MEAN CORPUSCULAR HGB CONC 34.9 G/DL (33.0-37.0); MEAN CORPUSCULAR VOLUME 89.4 FL (80.0-94.0); MEAN PLATELET VOLUME 7.8 FL (7.4-10.4); PLATELET COUNT 379 /CUMM (130-400); RBC DISTRIBUTION WIDTH 14.1 % (11.5-14.5); RED BLOOD CELL CT 3.51 /CUMM (4.70-6.10); WHITE BLOOD CELL COUNT 15.6 /CUMM (4.8-10.8)
--- NOTE | 2018-02-20 10:52 | PN- Att Addend ---
Attending Addendum Attending Brief Note Patient in bed still has the pain still n.p.o. Nurse is starting the PICC line so we can start the enteral nutrition. Patient also going to IR to have some of the fluid aspirated for studies. Temp max 101.8. No new changes on physical examination. Appreciate GIs and surgical inputs and recommendations. Continue pain management. Intake & Output 02/20 1600 02/20 0400 02/19 1600 02/19 0400 02/18 1600 02/18 0400 Intake Total 664 889 4093 360 1080 1020 Output Total 296 614 6742 1450 550 Balance 400 -50 -31 360 -370 470 Intake, IV 481 327 3921 300 840 300 Intake, Oral 180 60 240 720 Number 0 0 0 0 Bowel Movements Output, 100 Emesis Output, Stool 1 Output, Urine 266 609 6096 1450 550 Patient 205 lb Weight Weight Bed scale Measurement Method Current Medications Sig/Oz Start time Last Medication Dose Route Stop Time Status Admin Acetaminophen 650 MG Q4P PRN 02/18 1630 AC 02/19 PO 1131 Ceftriaxone Sodium 1,000 MG Q24H 02/19 1400 DC 02/19 IV 1348 Gabapentin 300 MG Q8 02/18 1400 AC 02/20 PO 0531 Heparin Sodium 5,000 UNIT Q8 02/04 0600 AC 02/20 (Porcine) SC 0531 Hydromorphone HCl 2 MG Q3P PRN 02/17 1800 AC 02/20 IV 1001 Lactated Ringer's 1,000 ML Q10H 02/10 08 AC 02/20 IV 1010 Lorazepam 0.5 MG ONE TIME ONE 02/20 0100 DC PO 02/20 0101 Nicotine 7 MG DAILY 02/04 0900 AC 02/20 TOP 1001 Omeprazole 40 MG DAILY AC 02/07 0700 AC 02/20 PO 0531 Ondansetron HCl 4 MG Q6P PRN 02/04 0245 AC 02/20 IV 0547 Oxycodone HCl 10 MG Q4P PRN 02/10 0315 AC 02/20 PO 0531 Laboratory Tests 02/20/18 0715: Anion Gap 7, Estimated GFR > 60, BUN/Creatinine Ratio 11.3, CBC w Diff MAN DIFF ORDERED, RBC 3.51 L, MCV 89.4, MCH 31.2 H, MCHC 34.9, RDW 14.1, MPV 7.8, Gran % 93.2 H, Lymphocytes % 2.4 L, Monocytes % 4.3, Eosinophils % 0.1, Basophils % 0, Absolute Granulocytes 14.6 H, Segmented Neutrophils 87 H, Band Neutrophils 6 H, Absolute Lymphocytes 0.4 L, Lymphocytes 4 L, Monocytes 3, Absolute Monocytes 0.7 H, Absolute Eosinophils 0, Absolute Basophils 0, Platelet Estimate VERIFIED BY SMEAR, Normocytic RBCs VERIFIED, Normochromic RBCs VERIFIED 02/19/18 0437: Urine Color YEL, Urine Clarity CLEAR, Urine pH 7.5, Ur Specific [place] 1.015, Urine Protein NEG, Urine Ketones NEG, Urine Nitrite NEG, Urine Bilirubin NEG, Urine Urobilinogen 2.0 H, Ur Leukocyte Esterase NEG, Ur Microscopic EXAM NOT REQUIRED, Urine Hemoglobin NEG, Urine Glucose NEG 02/19/18 0025: Lactic Acid 1.1 02/18/18 2140: Anion Gap 5, Estimated GFR > 60, BUN/Creatinine Ratio 6.0 L, Calcium 7.9 L, Total Bilirubin 0.9, Direct Bilirubin 0.3, AST 21, ALT 38, Alkaline Phosphatase 65, Total Protein 5.4 L, Albumin 2.6 L, Lipase 130 02/18/181999: CBC w Diff NO MAN DIFF REQ, RBC 3.96 L, MCV 91.3, MCH 30.7, MCHC 33.6, RDW 14.3 , MPV 7.8, Gran % 88.7 H, Lymphocytes % 6.5 L, Monocytes % 4.6, Eosinophils % 0.2, Basophils % 0, Absolute Granulocytes 13.5 H, Absolute Lymphocytes 1.0 L, Absolute Monocytes 0.7 H, Absolute Eosinophils 0, Absolute Basophils 0 Microbiology 02/19 2000 BLOOD: Blood Culture - RES 02/18 1741 LOWER RESP: Respiratory Culture - CAN Cancelled: SPECIMEN NOT RECEIVED IN LABORATORY 02/18 1741 LOWER RESP: Gram Stain - CAN Cancelled: SPECIMEN NOT RECEIVED IN LABORATORY 02/19 1740 BLOOD: Blood Culture - RES 02/18 1705 URINE ROUT: Urine Culture - COMP ENTEROBACTER CLOACAE Microbiology 02/19 2000 BLOOD: Blood Culture - RES 02/18 1741 LOWER RESP: Respiratory Culture - CAN Cancelled: SPECIMEN NOT RECEIVED IN LABORATORY 02/18 1741 LOWER RESP: Gram Stain - CAN Cancelled: SPECIMEN NOT RECEIVED IN LABORATORY 02/19 1740 BLOOD: Blood Culture - RES 08/28 1705 URINE ROUT: Urine Culture - COMP ENTEROBACTER CLOACAE Vital Signs Date Time Temp Pulse Resp B/P B/P Pulse O2 O2 Flow FiO2 Mean Ox Delivery Rate 02/20 0549 99.2 91 20 120/68 95 Room Air 02/19 2152 98.0 02/19 2137 100.1 79 20 116/64 96 Room Air 02/19 1415 98.3 78 18 108/68 96 Room Air 02/19 1400 98.3 02/19 1225 101.8 02/19 1200 101.8 92 20 130/90 91 Room Air 02/19 1134 100.8 02/19 1131 100.8
[2018-02-20 11:12] VITALS: BP 126/82
--- NOTE | 2018-02-20 11:29 | RADIOLOGY REPORT ---
EXAMINATION: XR PORTABLE CHEST CLINICAL INFORMATION: PICC placement COMPARISON: 02/18/2018 TECHNIQUE: Portable frontal view of the chest was obtained. FINDINGS: The right arm peripherally inserted catheter is in satisfactory position with catheter tip located within the distal superior vena cava. Lungs are hypoinflated. Persistent small bilateral pleural effusions with bibasilar atelectasis -- similar compared to 02/18/2018. No pulmonary edema. Cardiac silhouette is normal in size. Atherosclerotic calcification of the aortic arch. Surgical changes of Ariela procedure and rotator cuff repair of the right shoulder. IMPRESSION: - The right arm peripherally inserted catheter is in satisfactory position. - Persistent small pleural effusions and bibasilar atelectasis.
[2018-02-20 14:40] VITALS: BP 119/66
--- NOTE | 2018-02-20 14:57 | ULTRASOUND REPORT ---
PROCEDURE: ULTRASOUND-GUIDED ASPIRATION OF A PANCREATIC PSEUDOCYST CLINICAL INFORMATION: 52-year-old patient presenting with smoldering pancreatitis and persistent fevers. Diagnostic aspiration of the subhepatic pseudocysts requested to exclude secondary infection. RESIDENT CAREGIVER: Musa Irizarry M.D. COMPARISON: CT of the abdomen dated 02/19/2018 DESCRIPTION: The procedure was requested by the gastroenterology service and Dr. Roach. Informed consent was obtained from the patient prior to the procedure. During this process, the procedure and potential alternatives was explained, along with the intended outcome and benefits. The risks of the procedure, as well as the risk of not doing the procedure, were discussed. The patient was given the opportunity to ask questions regarding the procedure and appeared competent to make medical decisions. A signed consent form which documents this discussion was placed in the medical record. The patient's recent CT scan was reviewed. A sonographic survey was performed for identification of the subhepatic pseudocyst collections. The right upper quadrant was sterilely prepped and draped. Following administration of superficial and deep anesthesia using 1% Xylocaine and 0.5% bupivacaine, an 18-gauge [place] needle was advanced into the pseudocyst under direct sonographic visualization taking care to avoid the liver and right colon. Approximately 18 mL of light olivo, cloudy fluid was aspirated. Specimens were sent to the laboratory for culture and sensitivity, cell count with differentiation, and amylase as requested. The needle was removed and a sterile dressing was applied. The patient tolerated the procedure well. There was no evidence of complications. IMPRESSION: Diagnostic aspiration performed of the patient's right upper quadrant, subhepatic pseudocysts under sonographic guidance without evidence of complications.
--- NOTE | 2018-02-20 19:01 | PN- Gastroenterology ---
Assessment/Plan GI Assessment/Recommendations: Smoldering pancreatitis with persistent pain, now most notably in the right upper quadrant. New fever and leukocytosis. Etiology of pancreatitis unclear, with negative MRCP for choledocholithiasis. Repeat CT scan with worsening fluid collections, including right subhepatic. This was needled/aspirated today, with culture results pending. Note, the fluid had a low amylase level, suggesting no communication at present with pancreatic duct (leak/fistula). Recommendations * TPN and bowel rest * Continue narcotic analgesics and antiemetics. * Appreciate surgical input and follow-up * Await results of culture * May need to consider inpatient endoscopic ultrasound, which may require transfer Subjective Subjective: Persistent pain, nausea, vomiting. Low-grade fever. Objective Vital Signs and I&Os Vital Signs Date Time Temp Pulse Resp B/P B/P Pulse O2 O2 Flow FiO2 Mean Ox Delivery Rate 02/20 1440 98.4 84 20 119/66 94 Room Air 02/20 1112 98.9 82 18 126/82 94 Room Air 02/20 0800 94 Room Air 02/20 0549 99.2 91 20 120/68 95 Room Air 02/19 2152 98.0 02/19 2137 100.1 79 20 116/64 96 Room Air Intake & Output 02/20 1600 02/20 0400 02/19 1600 02/19 0400 02/18 1600 02/18 0400 Intake Total 4325 162 7134 360 1080 1020 Output Total 7648 146 5344 1450 550 Balance 425 -50 -31 360 -370 470 Intake, IV 3701 879 8538 300 840 300 Intake, Oral 180 60 240 720 Number 0 0 0 0 Bowel Movements Output, 100 Emesis Output, Stool 1 Output, Urine 6316 782 6407 1450 550 Patient 205 lb Weight Weight Bed scale Measurement Method Physical Exam: Appears ill. Skin warm and dry. Sclera anicteric. No adenopathy. Abdomen exquisitely tender. Current Medications: Current Medications Sig/Oz Start time Last Medication Dose Route Stop Time Status Admin Acetaminophen 650 MG Q4P PRN 02/18 1630 AC 02/19 PO 1131 Bupivacaine HCl 0 .STK-MED ONE 02/20 1232 DC .ROUTE Fat Emulsion 150 ML Q24H 02/20 1900 AC Intravenous IV 02/21 1859 Gabapentin 300 MG Q8 02/18 1400 AC 02/20 PO 1326 Heparin Sodium 5,000 UNIT Q8 02/04 0600 AC 02/20 (Porcine) SC 1326 Hydromorphone HCl 2 MG Q3P PRN 02/17 1800 AC 02/20 IV 1753 Lactated Ringer's 1,000 ML Q10H 02/10 0800 DC 02/20 IV 1333 Lidocaine 1 ML .STK-MED ONE 02/20 1312 DC ID 02/20 1313 Lorazepam 0.5 MG ONE TIME ONE 02/20 0100 DC PO 02/20 0101 Midazolam HCl 0 .STK-MED ONE 02/20 1223 DC .ROUTE Nicotine 7 MG DAILY 02/04 0900 AC 02/20 TOP 1001 Omeprazole 40 MG DAILY AC 02/07 0700 AC 02/20 PO 0531 Ondansetron HCl 4 MG Q6P PRN 02/04 0245 AC 02/20 IV 0547 Oxycodone HCl 10 MG Q4P PRN 02/10 0315 AC 02/20 PO 1512 Sodium Chloride 1,000 ML ONCE ONE 02/20 1830 AC IV 02/21 0429 Total Parenteral 1 UNIT ONE 02/20 1900 AC Nutrition IV 02/21 1859 Results Pertinent Lab Results: Laboratory Tests 02/20 02/20 02/20 1235 1235 0715 Chemistry Sodium (137 - 145 mmol/L) 130 L Potassium (3.5 - 5.1 mmol/L) 4.1 Chloride (98 - 107 mmol/L) 96 L Carbon Dioxide (22 - 30 mmol/L) 27 Anion Gap (5 - 16) 7 BUN (9 - 20 mg/dL) 9 Creatinine (0.7 - 1.2 mg/dL) 0.8 Estimated GFR (>60 ml/min) > 60 BUN/Creatinine Ratio (7 - 25 %) 11.3 Prealbumin (17.6 - 36.0 mg/dL) < 3.0 L Triglycerides (<150 mg/dL) 79 Hematology CBC w Diff MAN DIFF ORDERED WBC (4.8 - 10.8 /CUMM) 15.6 H RBC (4.70 - 6.10 /CUMM) 3.51 L Hgb (14.0 - 18.0 G/DL) 10.9 L Hct (42 - 52 %) 31.4 L MCV (80.0 - 94.0 FL) 89.4 MCH (27.0 - 31.0 PG) 31.2 H MCHC (33.0 - 37.0 G/DL) 34.9 RDW (11.5 - 14.5 %) 14.1 Plt Count (130 - 400 /CUMM) 379 MPV (7.4 - 10.4 FL) 7.8 Gran % (42.2 - 75.2 %) 93.2 H Lymphocytes % (20.5 - 51.1 %) 2.4 L Monocytes % (1.7 - 9.3 %) 4.3 Eosinophils % (0 - 5 %) 0.1 Basophils % (0.0 - 2.0 %) 0 Absolute Granulocytes (1.4 - 6.5 /CUMM) 14.6 H Segmented Neutrophils (42.2 - 75.2 %) 87 H Band Neutrophils (0.0 - 5.0 %) 6 H Absolute Lymphocytes (1.2 - 3.4 /CUMM) 0.4 L Lymphocytes (20.5 - 51.1 %) 4 L Monocytes (1.7 - 9.3 %) 3 Absolute Monocytes (0.10 - 0.60 /CUMM) 0.7 H Absolute Eosinophils (0.0 - 0.7 /CUMM) 0 Absolute Basophils (0.0 - 0.2 /CUMM) 0 Platelet Estimate (ADEQUATE) VERIFIED BY SMEAR Normocytic RBCs VERIFIED Normochromic RBCs VERIFIED Other Body Source Fld Total RBCs Counted (0 /CUMM) Fluid Amylase (U/L) 42 02/19 02/19 02/18 0437 0025 2140 Chemistry Sodium (137 - 145 mmol/L) 130 L Potassium (3.5 - 5.1 mmol/L) 4.3 Chloride (98 - 107 mmol/L) 93 L Carbon Dioxide (22 - 30 mmol/L) 31 H Anion Gap (5 - 16) 5 BUN (9 - 20 mg/dL) 6 L Creatinine (0.7 - 1.2 mg/dL) 1.0 Estimated GFR (>60 ml/min) > 60 BUN/Creatinine Ratio (7 - 25 %) 6.0 L Lactic Acid (0.7 - 2.1 mmol/L) 1.1 Calcium (8.4 - 10.2 mg/dL) 7.9 L Total Bilirubin (0.2 - 1.3 mg/dL) 0.9 Direct Bilirubin (< 0.4 mg/dL) 0.3 AST (17 - 59 U/L) 21 ALT (21 - 72 U/L) 38 Alkaline Phosphatase (< 127 U/L) 65 Total Protein (6.3 - 8.2 g/dL) 5.4 L Albumin (3.5 - 5.0 g/dL) 2.6 L Lipase (23 - 300 U/L) 130 Urines Urine Color (YEL,AMB,STR) YEL Urine Clarity (CLEAR) CLEAR Urine pH (5.0 - 8.0) 7.5 Ur Specific [place] (1.001 - 1.035) 1.015 Urine Protein (NEG,<30 MG/DL) NEG Urine Ketones (NEG) NEG Urine Nitrite (NEG) NEG Urine Bilirubin (NEG) NEG Urine Urobilinogen (0.1 - 1.0 EU/dl) 2.0 H Ur Leukocyte Esterase (NEG) NEG Ur Microscopic EXAM NOT REQUIRED Urine Hemoglobin (NEG) NEG Urine Glucose (N MG/DL) NEG 02/19 2000 Hematology CBC w Diff NO MAN DIFF REQ WBC (4.8 - 10.8 /CUMM) 15.2 H RBC (4.70 - 6.10 /CUMM) 3.96 L Hgb (14.0 - 18.0 G/DL) 12.2 L Hct (42 - 52 %) 36.2 L MCV (80.0 - 94.0 FL) 91.3 MCH (27.0 - 31.0 PG) 30.7 MCHC (33.0 - 37.0 G/DL) 33.6 RDW (11.5 - 14.5 %) 14.3 Plt Count (130 - 400 /CUMM) 456 H MPV (7.4 - 10.4 FL) 7.8 Gran % (42.2 - 75.2 %) 88.7 H Lymphocytes % (20.5 - 51.1 %) 6.5 L Monocytes % (1.7 - 9.3 %) 4.6 Eosinophils % (0 - 5 %) 0.2 Basophils % (0.0 - 2.0 %) 0 Absolute Granulocytes (1.4 - 6.5 /CUMM) 13.5 H Absolute Lymphocytes (1.2 - 3.4 /CUMM) 1.0 L Absolute Monocytes (0.10 - 0.60 /CUMM) 0.7 H Absolute Eosinophils (0.0 - 0.7 /CUMM) 0 Absolute Basophils (0.0 - 0.2 /CUMM) 0
[2018-02-20 21:27] VITALS: BP 113/60
[2018-02-21 05:54] VITALS: BP 120/62
--- NOTE | 2018-02-21 07:33 | PN- Housestaff ---
Subjective Follow-up For: Smoldering pancreatitis Subjective: Seen and examined at bedside. Afebrile with leukocytosis improving. Still reports n/v (non bilious) Still endorsing abdominal pain but reports much control compared to previous days. Review of Systems Constitutional: Reports: see HPI. Objective Last 24 Hrs of Vital Signs/I&O Vital Signs Date Time Temp Pulse Resp B/P B/P Pulse O2 O2 Flow FiO2 Mean Ox Delivery Rate 02/21 0554 98.3 83 20 120/62 94 02/20 2127 99.1 74 20 113/60 93 Room Air 02/20 1440 98.4 84 20 119/66 94 Room Air 02/20 1112 98.9 82 18 126/82 94 Room Air 02/20 0800 94 Room Air Intake & Output 02/21 0800 02/21 0000 02/20 1600 Intake Total 484.0 783.9 800 Output Total 600 360 775 Balance -116.0 423.9 25 Intake, IV 100 640 800 Intake, Lipid 50.4 18.9 Intake, Oral 0 0 Intake, 333.6 125 TPN/PPN Number 0 Bowel Movements Output, Urine 600 360 775 Patient 97.211 kg 93.157 kg Weight Weight Bed scale Measurement Method Physical Exam General Appearance: Alert, Oriented X3, Cooperative Skin: No Significant Lesion, nonjaundiced Lymphatic: Cervical nl Cardiovascular: Regular Rate, Normal S1, Normal S2 Lungs: Clear to Auscultation, Normal Air Movement Abdomen: Normal Bowel Sounds, tenderness on moderate palpation of ruq area Assessment/Plan Assessment: Mr. Bynum is a 52yo M w/ PMH of diverticulitis, kidney stones s/p lithotripsy, gallstones s/p cholecystectomy, s/p Pippa procedure w/ temporary colostomy followed by revision in 2016, s/p hernia repair, reversible ischemia on nuclear stress test status post cardiac cath recently in 2014 presented to [facility] w/ N/V/D/severe intermittent ab pain since 1pm of 02/03/2018, endorseed loose BM, w/ intermittent non-bloody vomiting, mostly foods. Problem list #1 smoldering pancreatitis. Etiology as of now unclear. Etoh and choledocoltihiasis ruled out (negative MRCP). #2 hypokalemia-resolved #3 nicotine dependence #4 diarrhea with evidence of colitis on ct abd Assesment and Plan Patient reports that his abdominal pain is much better compared to yesterday. He remains afebrile with improving white count. The aspiration fluid at the right upper quadrant is growing gram -ve pathogen. We will start ceftriaxone 1 g daily. He will inevitably need ex lap to assess his intrabdominal pathology, but this will have to be deferred until he has defervesced and with adequate abx. He is on TPN today day 2, via PICC line. We'll carefully monitor triglycerides and electrolyte while patient is on the TPN. Given his hyponatremia which most likely is hypovolemic hyponatremia, will continue with normal saline IV fluid hydration at 100 miles an hour trend sodium levels tomorrow morning. Problem List: 1. Pancreatitis Pain Ratin Pain Location: abdominal Pain Goal: Remain pain free Pain Plan: per pathway Tomorrow's Labs & Rationales: cbc mag phos
[2018-02-21 08:16] LABS: ABSOLUTE BASOPHIL COUNT 0 /CUMM (0.0-0.2); ABSOLUTE EOSINOPHIL COUNT 0 /CUMM (0.0-0.7); ABSOLUTE GRANULOCYTE CT 8.5 /CUMM (1.4-6.5); ABSOLUTE LYMPH COUNT 0.4 /CUMM (1.2-3.4); ABSOLUTE MONOCYTE COUNT 0.6 /CUMM (0.10-0.60); BASOPHIL % 0.1 % (0.0-2.0); EOSINOPHIL % 0.1 % (0-5); GRANULOCYTE % 89.3 % (42.2-75.2); HEMATOCRIT 31.5 % (42-52); MEAN CORPUSCULAR HGB 30.5 PG (27.0-31.0); MEAN CORPUSCULAR HGB CONC 33.8 G/DL (33.0-37.0); MEAN CORPUSCULAR VOLUME 90.2 FL (80.0-94.0); MEAN PLATELET VOLUME 7.9 FL (7.4-10.4); PLATELET COUNT 331 /CUMM (130-400); RBC DISTRIBUTION WIDTH 13.8 % (11.5-14.5); RED BLOOD CELL CT 3.49 /CUMM (4.70-6.10); WHITE BLOOD CELL COUNT 9.6 /CUMM (4.8-10.8)
--- NOTE | 2018-02-21 11:24 | PN- General Surgery ---
Subjective Subjective: Patient feels better in regards to pain and fevers. There was n/v last night with bilious emesis. Most c/o ruq pain/tenderness Objective Vital Signs and I&Os Vital Signs Date Time Temp Pulse Resp B/P B/P Pulse O2 O2 Flow FiO2 Mean Ox Delivery Rate 02/21 0554 98.3 83 20 120/62 94 02/20 2127 99.1 74 20 113/60 93 Room Air 02/20 1440 98.4 84 20 119/66 94 Room Air Intake & Output 02/21 1600 02/21 0802/21 0000 02/20 1600 02/20 0000 Intake Total 484.0 783.9 800 800 400 Output Total 600 360 775 400 450 Balance -116.0 423.9 25 400 -50 Intake, IV 100 640 800 800 400 Intake, Lipid 50.4 18.9 Intake, Oral 0 0 Intake, 333.6 125 TPN/PPN Number 0 Bowel Movements Output, Urine 600 360 775 400 450 Patient 214 lb 205 lb Weight Weight Bed scale Measurement Method Physical Exam: gen; looks well. mod discomfort. no distress. \ heent; anicteric, perrl, eomi chest; nontender, normal excursion and effort abd; soft, edematous flank. no hernia. tender RUQ with guarding. no peritonitis. Current Medications: Current Medications Sig/Oz Start time Last Medication Dose Route Stop Time Status Admin Acetaminophen 650 MG Q4P PRN 02/18 1630 AC 02/19 PO 1131 Bupivacaine HCl 0 .STK-MED ONE 02/20 1232 DC .ROUTE Ceftriaxone Sodium 1,000 MG DAILY 02/21 1014 AC IV Fat Emulsion 150 ML Q24H 02/20 1900 AC 02/20 Intravenous IV 02/21 1859 1922 Gabapentin 300 MG Q8 02/18 1400 AC 02/21 PO 0544 Heparin Sodium 5,000 UNIT Q8 02/04 0600 AC 02/21 (Porcine) SC 0544 Hydromorphone HCl 2 MG Q3P PRN 02/17 1800 AC 02/21 IV 1111 Lactated Ringer's 1,000 ML Q10H 02/10 0800 DC 02/20 IV 1333 Lidocaine 1 ML .STK-MED ONE 02/20 1312 DC ID 02/20 1313 Metoclopramide HCl 0 .STK-MED ONE 02/21 0232 DC .ROUTE Metoclopramide HCl 10 MG ONCE ONE 02/21 0230 DC 02/21 IV 02/21 0231 0230 Midazolam HCl 0 .STK-MED ONE 02/20 1223 DC .ROUTE Nicotine 7 MG DAILY 02/04 0900 AC 02/21 TOP 0904 Omeprazole 40 MG DAILY AC 02/07 0700 AC 02/21 PO 0544 Ondansetron HCl 4 MG Q6P PRN 02/04 0245 AC 02/20 IV 2355 Oxycodone HCl 10 MG Q4P PRN 02/10 0315 AC 02/21 PO 0904 Sodium Chloride 1,000 ML ONCE ONE 02/20 1830 DC 02/20 IV 02/21 0429 1903 Total Parenteral 1 UNIT ONE 02/20 190 AC 02/20 Nutrition IV 02/21 1859 1922 Results Last 48 Hours of Labs: Laboratory Tests 02/21 02/20 02/20 0600 1235 1235 Chemistry Sodium (137 - 145 mmol/L) 130 L Potassium (3.5 - 5.1 mmol/L) 4.0 Chloride (98 - 107 mmol/L) 94 L Carbon Dioxide (22 - 30 mmol/L) 29 Anion Gap (5 - 16) 7 BUN (9 - 20 mg/dL) 13 Creatinine (0.7 - 1.2 mg/dL) 0.7 Estimated GFR (>60 ml/min) > 60 BUN/Creatinine Ratio (7 - 25 %) 18.6 Hematology CBC w Diff NO MAN DIFF REQ WBC (4.8 - 10.8 /CUMM) 9.6 RBC (4.70 - 6.10 /CUMM) 3.49 L Hgb (14.0 - 18.0 G/DL) 10.6 L Hct (42 - 52 %) 31.5 L MCV (80.0 - 94.0 FL) 90.2 MCH (27.0 - 31.0 PG) 30.5 MCHC (33.0 - 37.0 G/DL) 33.8 RDW (11.5 - 14.5 %) 13.8 Plt Count (130 - 400 /CUMM) 331 MPV (7.4 - 10.4 FL) 7.9 Gran % (42.2 - 75.2 %) 89.3 H Lymphocytes % (20.5 - 51.1 %) 4.3 L Monocytes % (1.7 - 9.3 %) 6.2 Eosinophils % (0 - 5 %) 0.1 Basophils % (0.0 - 2.0 %) 0.1 Absolute Granulocytes (1.4 - 6.5 /CUMM) 8.5 H Absolute Lymphocytes (1.2 - 3.4 /CUMM) 0.4 L Absolute Monocytes (0.10 - 0.60 /CUMM) 0.6 Absolute Eosinophils (0.0 - 0.7 /CUMM) 0 Absolute Basophils (0.0 - 0.2 /CUMM) 0 Other Body Source Fld Total RBCs Counted (0 /CUMM) Fluid Amylase (U/L) 42 02/20 0715 Chemistry Sodium (137 - 145 mmol/L) 130 L Potassium (3.5 - 5.1 mmol/L) 4.1 Chloride (98 - 107 mmol/L) 96 L Carbon Dioxide (22 - 30 mmol/L) 27 Anion Gap (5 - 16) 7 BUN (9 - 20 mg/dL) 9 Creatinine (0.7 - 1.2 mg/dL) 0.8 Estimated GFR (>60 ml/min) > 60 BUN/Creatinine Ratio (7 - 25 %) 11.3 Prealbumin (17.6 - 36.0 mg/dL) < 3.0 L Triglycerides (<150 mg/dL) 79 Hematology CBC w Diff MAN DIFF ORDERED WBC (4.8 - 10.8 /CUMM) 15.6 H RBC (4.70 - 6.10 /CUMM) 3.51 L Hgb (14.0 - 18.0 G/DL) 10.9 L Hct (42 - 52 %) 31.4 L MCV (80.0 - 94.0 FL) 89.4 MCH (27.0 - 31.0 PG) 31.2 H MCHC (33.0 - 37.0 G/DL) 34.9 RDW (11.5 - 14.5 %) 14.1 Plt Count (130 - 400 /CUMM) 379 MPV (7.4 - 10.4 FL) 7.8 Gran % (42.2 - 75.2 %) 93.2 H Lymphocytes % (20.5 - 51.1 %) 2.4 L Monocytes % (1.7 - 9.3 %) 4.3 Eosinophils % (0 - 5 %) 0.1 Basophils % (0.0 - 2.0 %) 0 Absolute Granulocytes (1.4 - 6.5 /CUMM) 14.6 H Segmented Neutrophils (42.2 - 75.2 %) 87 H Band Neutrophils (0.0 - 5.0 %) 6 H Absolute Lymphocytes (1.2 - 3.4 /CUMM) 0.4 L Lymphocytes (20.5 - 51.1 %) 4 L Monocytes (1.7 - 9.3 %) 3 Absolute Monocytes (0.10 - 0.60 /CUMM) 0.7 H Absolute Eosinophils (0.0 - 0.7 /CUMM) 0 Absolute Basophils (0.0 - 0.2 /CUMM) 0 Platelet Estimate (ADEQUATE) VERIFIED BY SMEAR Normocytic RBCs VERIFIED Normochromic RBCs VERIFIED Recent Imaging Studies: Culture of pancreatic fluid shows GNR. Sesitivities pending. Assessment/Plan Assessment/Plan Patient with severe acute pancretitis, etiology indeterminant. Now with pseudocyst and evidence for superimposed infection. This represents a complex problem which will eventually require surgical intervention. However the morbidity and mortality of intervention can be radically improved by delaying intervention until the pseudocyst wall matures. This can take 6-8 weeks. For now recommend continue TPN, IV Ceftriaxone (pending sensitivities) and bowel rest (NPO x meds/ice chips). Encourage patient to walk to avoid deconditioning. As long as he is stable clinically with absence of spiking fevers, hemodynamic changes and worsented leukocytosis, he can be medically managed until a time when surgical intervention is safe. Plan for current treatment until next week at which time repeat CT should be performed 02/26/18. Problem List: 1. Pancreatitis, acute 2. Pseudocyst of pancreas 3. Acute pancreatitis with infected necrosis
--- NOTE | 2018-02-21 13:23 | PN- Att Addend ---
Attending Addendum Attending Brief Note Per nurse he had a rough night. Patient now sleeping. Patient started on enteral nutrition. Patient kept n.p.o. Patient had his fluid tested and his culture came back positive and was started on IV antibiotics. Vital signs are stable temp max 99.1. No new changes on physical. We will continue close observation pain management and antibiotic therapy and enteral nutrition. Intake & Output 02/21 1600 02/21 0400 02/20 1600 02/20 0400 02/19 1600 02/19 0400 Intake Total 484.0 783.9 3650 025 1672 360 Output Total 295 309 3528 450 1851 Balance -116.0 423.9 425 -50 -31 360 Intake, IV 020 510 0666 400 1640 300 Intake, Lipid 50.4 18.9 Intake, Oral 0 0 180 60 Intake, 333.6 125 TPN/PPN Number 0 0 0 Bowel Movements Output, 100 Emesis Output, Stool 1 Output, Urine 337 504 5933 450 1750 Patient 214 lb 205 lb Weight Weight Bed scale Measurement Method Current Medications Sig/Oz Start time Last Medication Dose Route Stop Time Status Admin Acetaminophen 650 MG Q4P PRN 02/18 1630 AC 02/19 PO 1131 Ceftriaxone Sodium 1,000 MG DAILY 02/21 1014 AC 02/21 IV 1312 Fat Emulsion 250 ML ONCE ONE 02/21 190 AC Intravenous IV 02/22 1859 Fat Emulsion 150 ML Q24H 02/20 1900 AC 02/20 Intravenous IV 02/21 1859 1922 Gabapentin 300 MG Q8 02/18 1400 AC 02/21 PO 1313 Heparin Sodium 5,000 UNIT Q8 02/04 0600 AC 02/21 (Porcine) SC 1313 Hydromorphone HCl 2 MG Q3P PRN 02/17 1800 AC 02/21 IV 1111 Lactated Ringer's 1,000 ML Q10H 02/10 08 HI 02/20 IV 1333 Metoclopramide HCl 0 .STK-MED ONE 02/21 0232 DC .ROUTE Metoclopramide HCl 10 MG ONCE ONE 02/21 0230 DC 02/21 IV 02/21 0231 0230 Nicotine 7 MG DAILY 02/04 0900 AC 02/21 TOP 0904 Omeprazole 40 MG DAILY AC 02/07 0700 AC 02/21 PO 0544 Ondansetron HCl 4 MG Q6P PRN 02/04 0245 AC 02/20 IV 2355 Oxycodone HCl 10 MG Q4P PRN 02/10 0315 AC 02/21 PO 0904 Sodium Chloride 1,000 ML ONCE ONE 02/20 1830 DC 02/20 IV 02/21 0429 1903 Total Parenteral 1 UNIT ONE 02/21 1900 AC Nutrition IV 02/22 1859 Total Parenteral 1 UNIT ONE 02/20 1900 AC 02/20 Nutrition IV 02/21 185 1922 Laboratory Tests 02/21/18 0600: Anion Gap 7, Estimated GFR > 60, BUN/Creatinine Ratio 18.6, CBC w Diff NO MAN DIFF REQ, RBC 3.49 L, MCV 90.2, MCH 30.5, MCHC 33.8, RDW 13.8, MPV 7.9, Gran % 89.3 H, Lymphocytes % 4.3 L, Monocytes % 6.2, Eosinophils % 0.1, Basophils % 0.1, Absolute Granulocytes 8.5 H, Absolute Lymphocytes 0.4 L, Absolute Monocytes 0.6, Absolute Eosinophils 0, Absolute Basophils 0 02/20/18 1235: Fld Total RBCs Counted 02/20/18 1235: Fluid Amylase 42 02/20/18 0715: Anion Gap 7, Estimated GFR > 60, BUN/Creatinine Ratio 11.3, Prealbumin < 3.0 L, Triglycerides 79, CBC w Diff MAN DIFF ORDERED, RBC 3.51 L, MCV 89.4, MCH 31.2 H, MCHC 34.9, RDW 14.1, MPV 7.8, Gran % 93.2 H, Lymphocytes % 2.4 L, Monocytes % 4.3, Eosinophils % 0.1, Basophils % 0, Absolute Granulocytes 14.6 H, Segmented Neutrophils 87 H, Band Neutrophils 6 H, Absolute Lymphocytes 0.4 L, Lymphocytes 4 L, Monocytes 3, Absolute Monocytes 0.7 H, Absolute Eosinophils 0 , Absolute Basophils 0, Platelet Estimate VERIFIED BY SMEAR, Normocytic RBCs VERIFIED, Normochromic RBCs VERIFIED 02/19/18 0437: Urine Color YEL, Urine Clarity CLEAR, Urine pH 7.5, Ur Specific [place] 1.015, Urine Protein NEG, Urine Ketones NEG, Urine Nitrite NEG, Urine Bilirubin NEG, Urine Urobilinogen 2.0 H, Ur Leukocyte Esterase NEG, Ur Microscopic EXAM NOT REQUIRED, Urine Hemoglobin NEG, Urine Glucose NEG 02/19/18 0025: Lactic Acid 1.1 02/18/18 2140: Anion Gap 5, Estimated GFR > 60, BUN/Creatinine Ratio 6.0 L, Calcium 7.9 L, Total Bilirubin 0.9, Direct Bilirubin 0.3, AST 21, ALT 38, Alkaline Phosphatase 65, Total Protein 5.4 L, Albumin 2.6 L, Lipase 130 02/18/181999: CBC w Diff NO MAN DIFF REQ, RBC 3.96 L, MCV 91.3, MCH 30.7, MCHC 33.6, RDW 14.3 , MPV 7.8, Gran % 88.7 H, Lymphocytes % 6.5 L, Monocytes % 4.6, Eosinophils % 0.2, Basophils % 0, Absolute Granulocytes 13.5 H, Absolute Lymphocytes 1.0 L, Absolute Monocytes 0.7 H, Absolute Eosinophils 0, Absolute Basophils 0 Microbiology 02/20 1235 BODY FLUID: Body Fluid Culture - RES GRAM NEGATIVE RODS 02/20 123 BODY FLUID: Gram Stain - RES 02/19 2000 BLOOD: Blood Culture - RES 02/18 174 LOWER RESP: Respiratory Culture - CAN Cancelled: SPECIMEN NOT RECEIVED IN LABORATORY 02/18 1741 LOWER RESP: Gram Stain - CAN Cancelled: SPECIMEN NOT RECEIVED IN LABORATORY 02/19 1740 BLOOD: Blood Culture - RES 02/18 170 URINE ROUT: Urine Culture - COMP ENTEROBACTER CLOACAE Microbiology 02/20 123 BODY FLUID: Body Fluid Culture - RES GRAM NEGATIVE RODS 02/20 1235 BODY FLUID: Gram Stain - RES 02/19 2000 BLOOD: Blood Culture - RES 02/18 1741 LOWER RESP: Respiratory Culture - CAN Cancelled: SPECIMEN NOT RECEIVED IN LABORATORY 02/18 174 LOWER RESP: Gram Stain - CAN Cancelled: SPECIMEN NOT RECEIVED IN LABORATORY 02/19 1740 BLOOD: Blood Culture - RES 02/18 170 URINE ROUT: Urine Culture - COMP ENTEROBACTER CLOACAE Vital Signs Date Time Temp Pulse Resp B/P B/P Pulse O2 O2 Flow FiO2 Mean Ox Delivery Rate 02/21 0554 98.3 83 20 120/62 94 02/20 2127 99.1 74 20 113/60 93 Room Air 02/20 1440 98.4 84 20 119/66 94 Room Air
[2018-02-21 14:39] VITALS: BP 110/64
[2018-02-21 21:23] VITALS: BP 118/71
--- NOTE | 2018-02-21 23:33 | PN- Gastroenterology ---
Assessment/Plan GI Assessment/Recommendations: (*Please refer to my initial inpt GI consultation of 02/04/18. I assume the weekly inpatient GI service from Dr. Jenae Ardon on 02/21/18. Extensive records reviewed). 52 y/o male, HTN, non-DM, renal stones post ESWL, smoker, hx GERD, anxiety, 02/27: CCKY for biliary colic (path: chronic cholecystitis, cholesterolosis, & cholelithiasis), hx diverticulosis coli, post 09/05/15: Pippa's procedure for sigmoid diverticulitis with phlegmon, f/b 12/27/15: reversal of colostomy, KRISTIN, reinforcement of midline fascia with mesh. This was followed by 08/14/16: open mesh repair of ventral incisional hernia, along with bilateral advancement rectus muscular fascial flap reconstruction, all per Dr. Cordon. He also has hx gout & had numerous orthopedic procedures, including right rotator cuff surgery, & left elbow ulnar surgery. *He had a chronic pain syndrome in the right flank. 03/15/06: EGD/colonoscopy (purged) gastric bxs unremarkable, H. pylori negative; bxs GEJ- benign inflammation, without Coliler's esophagus. 09/06/14: Combined baseline upper endoscopy to the third portion of the duodenum with biopsies, plus follow up colonoscopy to the terminal ileum with biopsies (*done for GERD & chronic vague right-sided abdominal sx, requiring multiple ER visits & OV with the GI STUNNER ANIMAL)- ? mild gastroparesis with bile cleared from proximal stomach, random bxs D2/D3- neg, random bx antrum- mild CAG, HP-neg, bx inflamed cardia- mild CFG , HP-neg, 2 cm HH, random bxs distal esophagus at 42 cm/Z line & at 39 cm- nl esophageal mucosa, neg EOE; mod L tics, focal sigmoid erythema from 25-30 cm in midst of tics-colonic mucosa with focal hyperplastic change & hemorrhage, random bxs of TI, right colon, left colon, & rectum- all neg. (The pt was rxd Nexium 40 mg daily then) He was due for f/u surveillance colonoscopy x 10 yrs (avg risk) = 08/2024. He was told if inc sx, to consider GES (which he never had), TFT with TSH, HgbA1C, celiac panel, etc. He was then seen in inpatient GI consultation 04/22/[address] Sprague for sigmoid diverticulitis, txd with antibiotics. He ultimately then had 09/05/15: Pippa 's procedure, followed by 12/27/15: reversal of colostomy/KRISTIN & 08/14/16: open mesh repair of ventral incisional hernia, as above. He was most recently seen in inpatient GI consultation by Dr. Jenae Ardon , for chronic progressive vague right-sided abdominal/right flank pain, which was somewhat positional in nature. This was felt to have a neuropathic quality. History, exam, and imaging did not show any acute intra-abdominal or retroperitoneal process. He had a minimally elevated lipase then which was felt to be nonspecific. There was no clinical evidence of pancreatitis. A radicular process vs. zoster was considered, & he was rxd ANGE & Valacyclovir. A Lyme titer then was negative, although he did get a 10 day course of Doxycyline. Since 1 PM on 02/03/18, the patient noted nausea, vomiting, diarrhea, and intermittent, severe intense, abdominal pain, described as "someone beating the hell out of my stomach". It was localized to the periumbilical region, radiating suprapubically and epigastrically. Initially, the pain was "3 out of 10", then became "10 out of 10" and constant in nature. He took Iliana-Robins, without relief. He arrived at the [facility] 02/04/18 at 12:14 a.m. for the above, at which point, he was HTN, with BP 218/97, P 57, R 22, T 97.5, O2 sat RA 100%. He was initially in tears from the pain. 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 The vomitus initially showed partially digested food, but then became clear, non-bloody, non-bilious. He had chronic GERD, for which he took Tums prn. He was not on longstanding PPI. He denied any odynophagia or dysphagia. He denied using any NSAIDS, thiazides, or Sulfa meds. He denied any hematemesis, melena, or BRBPR. He denied any EtOH, transfusions, IVDA, HIV, or hx viral hepatitis. He denied any definite jaundice, dark urine, light stools, pruritus, or confusion. He denied any fevers, chills, night sweats, CP, SOB, symptoms of UTI or URI. There was no abdominal trauma. His appetite was fair, since his multiple abdominal surgeries a few years ago. He denied any early satiety. His weight had been stable for the past 2 years, but he stated that he was previously obese & lost > 100 lbs a few years ago, in the midst of tx of his divericulitis. There is no FHx GI Ca, GI disease, inherited pancreatitis, or inherited liver disease. He was found to have newly elevated LFTs & elevated lipase (*see labs). 11/24/17: minimal lipase 401, with nl LFTs. 02/04/18: 0116- Admission labs-WBC 11.5 (92% gran/11 gran Ab), H/H 18/51.3, MCV 90, RDW 13.9, PLT 137, glucose 125, BUN/CR 16/1.1, GFR > 60, Na 141, K 4.0, HCO3 23, AG 14, Ca 10.1, amylase 3643, lipase > 10K, albumin 4.7, globulin 3.9, Tbil 2.3, DBil 1.4, alk phos 196, AST 266, ALT 219, troponin < 0.01; (no U/A or PT/ PTT). 02/04/18: 0246- *TG 101, [EtOH] < 10. 02/04/18: EKG- SB @ 57, nl axis, FL .20, no ischemic change. 02/04/18: CT ABDOMEN AND PELVIS WITHOUT IV CONTRAST (*per Krishna CARRENO, limited study w/o IV cont)- Prominent inflammatory changes surrounding the pancreas with edematous appearance of the pancreas. This is suggestive of acute pancreatitis. No PD dilitation. Post CCKY with postop CBD 1.3 cm (chronic), no filling defect. Stable ectatic appearance of the left common iliac artery. Normal AP. No hernia. DJD. 02/04/18: US ABDOMEN COMPLETE- 1. Edematous pancreas with peripancreatic fluid, consistent with acute pancreatitis. 2. The pancreatic head and portions of the tail are not visualized. 3. Intra and extrahepatic ductal dilatation is seen. Common bile duct measuring up to 1 cm. Findings may at least in part be related to the patient's postcholecystectomy state with similar appearance seen on older CT scan from 07/11/2017, at which time, no evidence of acute pancreatitis was seen. In the visualized portions of the common bile duct on today's exam, no filling defect is seen. Distal most CBD is, however, not visualized. Close clinical correlation is requested. 4. Status post cholecystectomy. *Unfortunately, no MRCP available at [facility] on Tuesdays, prohibiting this on . *Most likely, initially the patient was felt to have gallstone pancreatitis. His TG were normal. He did bump up his LFTs. *He had no signs or symptoms of cholangitis. The admission CT was somewhat limited without IV contrast. Even so, it showed pancreatic inflammation. Subsequent admission ultrasound showed chronic mild nonspecific dilated CBD & mildly dilated IHD, but apparently, these findings are chronic, post CCKY. However, the elevated LFTs are new. Unfortunately, MRCP was not available at [facility] on Tuesdays, & therefore, could not be obtained on 02/04/18. He appeared somewhat hemoconcentrated on admission, as did his HCT 51.3. *He had 1 grave sign by Kala criteria on admission, namely elevated AST, although no LDH was sent. *He had 0 grave signs by BiSAP criteria on admission, but no CXR was obtained to rule out pleural effusions. ( Limited views of the lung bases on CT AP were clear). He denied EtOH. He is a 30 pk yr cigarette smoker, which is a risk factor for pancreatitis. Surprisingly, 02/05/18: MRCP was negative for choledocholithiasis. The patient has had numerous imaging studies since admission, *including aspirate of right subhepatic fluid collection, performed on 02/20/18, with right sided PICC placed that day, as well. 02/20/18: BF amylase 42, BF cell count could not be done by lab, g stain w/o WBC , with *BF C&S- mod GNR. *As of 02/21/18, the pt was hemodynamically stable, & afebrile, with O2 sat RA 94%. His leukocytosis was improved. There was no hemoconcentration by labs. He was malnourished with 02/20/18: PAB < 3, TG 79 (*TPN rxd). LFTs had normalized except for decreased synthetic function. He still had some abdominal pain, mostly in the RLQ & right flank. He also noted nausea and mild vomiting. He no longer had fevers or chills. He was no longer yellow. *The patient was put on IV Ceftriaxone 02/21/18, for acute pancreatitis with pseudocyst and infected necrosis. *Plans are to try to wait 6-8 weeks until the wall of the pseudocyst matures, prior to considering surgical intervention. * Another option could be eventual drainage via EUS, and will discuss with surgery , although the pt did not appear to be desirous of going to [facility], ? "because of transportation issues, which would arise when he was D/C from there". *SUGGEST: NPO. TPN with intralipids. Bowel rest. Strict I/O's. Serial CBC, *LFTs, lytes, BUN/Cr, GFR. *Watch for hemoconcentration (i.e.- rising Hgb or BUN) despite IVF/ TPN, which would be a poor prognostic sign. IV Zofran. Analgesics. ANGE. IV Protonix 40 mg daily, for GERD. D/C cigarettes. DVT prophylaxis. Follow-up with surgery. Continue narcotic analgesics and antiemetics. If patient deteriorates, consider transfer to [facility] for inpatient EUS. *Try to wait 6-8 weeks until the wall of the pseudocyst matures, prior to considering surgical intervention. *Another option could be eventual drainage via EUS, and *will discuss with surgery. (As an aside, he is due for f/u surveillance colonoscopy in 08/2024). Further GI recommendations to follow, depending on clinical course. Problem List: 1. Pancreatitis 2. Pseudocyst of pancreas 3. Acute pancreatitis with infected necrosis 4. Abdominal pain Subjective Subjective: *As of 02/21/18, the pt was hemodynamically stable, & afebrile, with O2 sat RA 94%. His leukocytosis was improved. There was no hemoconcentration by labs. He was malnourished with 02/20/18: PAB < 3, TG 79 (*TPN rxd). LFTs had normalized except for decreased synthetic function. He still had some abdominal pain, mostly in the RLQ & right flank. He also noted nausea and mild vomiting. He no longer had fevers or chills. He was no longer yellow. Review of Systems: Full 14 point ROS otherwise noncontributory, & as above. Review of Systems Constitutional: Reports; weight loss as inpt. Denies: chills, diaphoresis, fever, malaise, weakness EENTM: Denies: blurred vision, double vision, visual changes, eye pain, eye drainage, eye tearing, icterus, ear discharge, ear pain, ear redness, hearing changes, nasal congestion, epistaxis, nasal pain, throat pain, throat swelling, mouth pain, tooth pain. Cardiovascular: Denies: chest pain, edema, orthopena, palpitations, peripheral edema, syncope. Respiratory: Denies: cough, hemoptysis, orthopnea, short of breath, sputum production, stridor, wheezing. GI: Reports: abdominal pain-> slightly better; nausea & vomiting-> persist. Denies: bloating, constipation, diarrhea, distention, bowel incontinence, melena , bloody stool, changes in stool, steatorrhea. Genitourinary: Denies: discharge, dysuria, frequency, hematuria, hesitation, nocturia, pain, urgency. Musculoskeletal: Denies: back pain, gout, joint pain, joint swelling, muscle pain, muscle stiffness, neck pain. Skin: Denies: cysts, change in skin color, change in hair/nails, dryness, erythema, jaundice, lesions, lymphangitis, lumps, moles, rash. Neurological/Psychological: Reports: anxiety, emotional problems. Denies: ataxia, cognitive dysfunction, confusion, depressed, dementia, headache, numbness, paresthesia, pre-existing deficit, petit mal seizures, tingling, tremors, tonic-clonic seizures, unable to move lower ext, unable to move upper ext, weakness, other. Hematologic/Endocrine: Denies: bruising, bleeding, polyuria, polydipsia. Immunologic/Allergic: Denies: splenectomy, HIV/AIDS, lymphadenopathy. All Other Systems: Reviewed and Negative Objective Vital Signs and I&Os Vital Signs Date Time Temp Pulse Resp B/P B/P Pulse O2 O2 Flow FiO2 Mean Ox Delivery Rate 02/213 98.3 78 20 118/71 94 Room Air 02/21 1439 98.6 75 19 110/64 96 Room Air 02/21 0554 98.3 83 20 120/62 94 Intake & Output 02/220 02/21 1600 02/21 0400 02/20 1600 02/20 0400 02/19 1600 Intake Total 868.0 783.9 8293 880 8391 Output Total 300 418 611 3866 450 1851 Balance -300 268.0 423.9 425 -50 -31 Intake, IV 142 023 1320 400 1640 Intake, Lipid 100.4 18.9 Intake, Oral 0 0 180 Intake, 667.6 125 TPN/PPN Number 1 0 0 Bowel Movements Output, 100 Emesis Output, Stool 1 Output, Urine 300 058 791 5852 450 1750 Patient 214 lb 205 lb Weight Weight Bed scale Measurement Method Physical Exam: Well-developed, well-nourished male in mild distress, non-toxic appearing. Sclera anicteric. Conjunctiva pink. Oropharynx clear. Slightly dry mucus membranes. No oral thrush. No aphthous ulcers. There is no adenopathy, thyromegaly, or JVD. No peripheral stigmata of inflammatory bowel disease or chronic liver disease on exam. No spiders on the anterior chest wall. No gynecomastia. No CVA tenderness. No spine tenderness. Lungs: clear to A&P, with slight decreased BS at bases B/L. No wheezing, rales, or rhonchi. Heart exam: regular rate rhythm, S1 and S2, without any murmur. Abdominal exam: normal bowel sounds, soft belly, mildly distended, RLQ > right flank tenderness on palpation, without guarding or rebound. No mass. No organomegaly. No definite fluid shift. No epigastric bruit. No pulsatile mass. Multiple scars. Digital rectal exam: previously deferred by patient. Extremities: without C, C, or E. No rash. Clean site at [facility] P[facility]. Mild DJD. No palmar erythema. No Dupuytren's contractures. No palpable cords. Distal pulses 2+ bilaterally. DTRs 2+ bilaterally. Right handed. CN II -XII prev intact. Motor 5/5 B/L. Alert and oriented x 3. No tremor. No asterixis. Current Medications: Current Medications Sig/Oz Start time Last Medication Dose Route Stop Time Status Admin Acetaminophen 650 MG Q4P PRN 02/18 1630 AC 02/19 PO 1131 Ceftriaxone Sodium 1,000 MG DAILY 02/21 1014 AC 02/21 IV 1312 Fat Emulsion 250 ML ONCE ONE 02/21 1900 AC 02/21 Intravenous IV 02/22 1859 1931 Fat Emulsion 150 ML Q24H 02/20 1900 DC 02/20 Intravenous IV 02/21 185 192 Gabapentin 300 MG Q8 02/18 1400 AC 02/21 PO 2204 Heparin Sodium 5,000 UNIT Q8 02/04 0600 AC 02/21 (Porcine) SC 2204 Hydromorphone HCl 2 MG Q3P PRN 02/17 1800 AC 02/22 IV 0024 Metoclopramide HCl 0 .STK-MED ONE 02/21 0232 DC .ROUTE Metoclopramide HCl 10 MG ONCE ONE 02/21 0230 DC 02/21 IV 02/21 0231 0230 Nicotine 7 MG DAILY 02/04 0900 02/21 TOP 0904 Omeprazole 40 MG DAILY AC 02/07 0700 02/21 PO 0544 Ondansetron HCl 4 MG ONCE ONE 02/21 1730 DC 02/21 IV 02/21 1731 2007 Ondansetron HCl 4 MG Q6P PRN 02/04 0245 02/21 IV 1345 Oxycodone HCl 10 MG Q4P PRN 02/10 0315 02/21 PO 2205 Sodium Chloride 1,000 ML ONCE ONE 02/20 1830 DC 02/20 IV 02/21 0429 1903 Total Parenteral 1 UNIT ONE 02/21 1900 02/21 Nutrition IV 02/22 1859 195 Total Parenteral 1 UNIT ONE 02/20 1900 DC 02/20 Nutrition IV 02/21 185 1922 Results Pertinent Lab Results: Laboratory Tests 02/21 02/20 02/20 0600 1235 1235 Chemistry Sodium (137 - 145 mmol/L) 130 L Potassium (3.5 - 5.1 mmol/L) 4.0 Chloride (98 - 107 mmol/L) 94 L Carbon Dioxide (22 - 30 mmol/L) 29 Anion Gap (5 - 16) 7 BUN (9 - 20 mg/dL) 13 Creatinine (0.7 - 1.2 mg/dL) 0.7 Estimated GFR (>60 ml/min) > 60 BUN/Creatinine Ratio (7 - 25 %) 18.6 Phosphorus (2.5 - 4.5 mg/dL) 3.1 Magnesium (1.6 - 2.3 mg/dL) 1.9 Hematology CBC w Diff NO MAN DIFF REQ WBC (4.8 - 10.8 /CUMM) 9.6 RBC (4.70 - 6.10 /CUMM) 3.49 L Hgb (14.0 - 18.0 G/DL) 10.6 L Hct (42 - 52 %) 31.5 L MCV (80.0 - 94.0 FL) 90.2 MCH (27.0 - 31.0 PG) 30.5 MCHC (33.0 - 37.0 G/DL) 33.8 RDW (11.5 - 14.5 %) 13.8 Plt Count (130 - 400 /CUMM) 331 MPV (7.4 - 10.4 FL) 7.9 Gran % (42.2 - 75.2 %) 89.3 H Lymphocytes % (20.5 - 51.1 %) 4.3 L Monocytes % (1.7 - 9.3 %) 6.2 Eosinophils % (0 - 5 %) 0.1 Basophils % (0.0 - 2.0 %) 0.1 Absolute Granulocytes (1.4 - 6.5 /CUMM) 8.5 H Absolute Lymphocytes (1.2 - 3.4 /CUMM) 0.4 L Absolute Monocytes (0.10 - 0.60 /CUMM) 0.6 Absolute Eosinophils (0.0 - 0.7 /CUMM) 0 Absolute Basophils (0.0 - 0.2 /CUMM) 0 Other Body Source Fld Total RBCs Counted (0 /CUMM) Fluid Amylase (U/L) 42 08 0715 Chemistry Sodium (137 - 145 mmol/L) 130 L Potassium (3.5 - 5.1 mmol/L) 4.1 Chloride (98 - 107 mmol/L) 96 L Carbon Dioxide (22 - 30 mmol/L) 27 Anion Gap (5 - 16) 7 BUN (9 - 20 mg/dL) 9 Creatinine (0.7 - 1.2 mg/dL) 0.8 Estimated GFR (>60 ml/min) > 60 BUN/Creatinine Ratio (7 - 25 %) 11.3 Prealbumin (17.6 - 36.0 mg/dL) < 3.0 L Triglycerides (<150 mg/dL) 79 Hematology CBC w Diff MAN DIFF ORDERED WBC (4.8 - 10.8 /CUMM) 15.6 H RBC (4.70 - 6.10 /CUMM) 3.51 L Hgb (14.0 - 18.0 G/DL) 10.9 L Hct (42 - 52 %) 31.4 L MCV (80.0 - 94.0 FL) 89.4 MCH (27.0 - 31.0 PG) 31.2 H MCHC (33.0 - 37.0 G/DL) 34.9 RDW (11.5 - 14.5 %) 14.1 Plt Count (130 - 400 /CUMM) 379 MPV (7.4 - 10.4 FL) 7.8 Gran % (42.2 - 75.2 %) 93.2 H Lymphocytes % (20.5 - 51.1 %) 2.4 L Monocytes % (1.7 - 9.3 %) 4.3 Eosinophils % (0 - 5 %) 0.1 Basophils % (0.0 - 2.0 %) 0 Absolute Granulocytes (1.4 - 6.5 /CUMM) 14.6 H Segmented Neutrophils (42.2 - 75.2 %) 87 H Band Neutrophils (0.0 - 5.0 %) 6 H Absolute Lymphocytes (1.2 - 3.4 /CUMM) 0.4 L Lymphocytes (20.5 - 51.1 %) 4 L Monocytes (1.7 - 9.3 %) 3 Absolute Monocytes (0.10 - 0.60 /CUMM) 0.7 H Absolute Eosinophils (0.0 - 0.7 /CUMM) 0 Absolute Basophils (0.0 - 0.2 /CUMM) 0 Platelet Estimate (ADEQUATE) VERIFIED BY SMEAR Normocytic RBCs VERIFIED Normochromic RBCs VERIFIED 02/19 0437 Urines Urine Color (YEL,AMB,STR) YEL Urine Clarity (CLEAR) CLEAR Urine pH (5.0 - 8.0) 7.5 Ur Specific [place] (1.001 - 1.035) 1.015 Urine Protein (NEG,<30 MG/DL) NEG Urine Ketones (NEG) NEG Urine Nitrite (NEG) NEG Urine Bilirubin (NEG) NEG Urine Urobilinogen (0.1 - 1.0 EU/dl) 2.0 H Ur Leukocyte Esterase (NEG) NEG Ur Microscopic EXAM NOT REQUIRED Urine Hemoglobin (NEG) NEG Urine Glucose (N MG/DL) NEG Imaging/Other Studies: 02/04/18: EKG- SB @ 57, nl axis, FL .20, no ischemic change. 02/04/18: CT ABDOMEN AND PELVIS WITHOUT IV CONTRAST (*per [facility], limited study w/o IV cont)- Prominent inflammatory changes surrounding the pancreas with edematous appearance of the pancreas. This is suggestive of acute pancreatitis. No PD dilitation. Post CCKY with postop CBD 1.3 cm (chronic), no filling defect. Stable ectatic appearance of the left common iliac artery. Normal AP. No hernia. DJD. 02/04/18: US ABDOMEN COMPLETE- 1. Edematous pancreas with peripancreatic fluid, consistent with acute pancreatitis. 2. The pancreatic head and portions of the tail are not visualized. 3. Intra and extrahepatic ductal dilatation is seen. Common bile duct measuring up to 1 cm. Findings may at least in part be related to the patient's postcholecystectomy state with similar appearance seen on older CT scan from 07/11/2017, at which time, no evidence of acute pancreatitis was seen. In the visualized portions of the common bile duct on today's exam, no filling defect is seen. Distal most CBD is, however, not visualized. Close clinical correlation is requested. 4. Status post cholecystectomy. *Unfortunately, no MRCP available at [facility] on Tuesdays, prohibiting this on . 02/05/18: XRY-CHEST XRAY, TWO VIEWS- No acute cardiopulmonary process. 02/05/18: MR ABDOMEN WITHOUT CONTRAST/MRCP- 1. Acute interstitial pancreatitis is seen with pancreatic parenchymal edema and peripancreatic soft tissue edema and stranding. Associated circumferential wall thickening in the duodenum and proximal jejunum is seen, consistent with sympathetic changes to the pancreatic inflammation. 2. No evidence of variant ductal anatomy. No definite pancreatic head mass seen on noncontrast study. 3. Mild intrahepatic ductal dilatation and moderate extrahepatic ductal dilatation to 1 cm is seen. There is smooth tapering of the common bile duct to 0.4 cm in the preampullary region with no evidence of choledocholithiasis. Findings may be related to the patient's postcholecystectomy state. 4. A few scattered bilateral renal cysts are incidentally seen. 02/09/18: CT ABD & PELVIS W ORAL & IV CONT- Interval increase in pancreatic edema with increasing abdominal fluid likely inside account representative of progressing pancreatitis. Right greater than left bilateral pleural effusions with associated airspace disease. 02/13/18: XRY-CHEST XRAY, TWO VIEWS- Bibasilar subsegmental atelectasis with small right more than left pleural effusions. No dense consolidation. 02/14/18: XRY-PORTABLE CHEST XRAY- Bilateral pleural effusions with bibasilar airspace opacity, consolidation atelectasis. These basilar densities are greater at the right lung base than the left. 02/15/18: [id number] VIEWS- No evidence of free air or air-fluid levels to suggest any perforation or obstruction. No organomegaly. 02/15/18: CT ABD & PELVIS W IV CONTRAST- 1. Similar appearance of the pancreas with diffuse edema without definite areas of necrosis. There are acute peripancreatic fluid collections seen, possibly decreasing since the prior study as detailed above. There is slightly increased organization with thin enhancing mascorro. 2. Right colonic wall thickening and submucosal fat proliferation, new since 11/22/2017. Whether this is representing acute colitis versus reaction to the closely adjacent fluid collections and pancreatitis is unclear. Clinical correlation requested. 3. Other chronic, nonacute findings as above. 02/18/18: XRY-CHEST XRAY, TWO VIEWS- Stable bibasilar airspace disease and small pleural effusions. : CT ABDOMEN WITHOUT AND WITH CONTRAST Unchanged inflammatory process involving the pancreas with peripancreatic fluid collections with one more organized discrete collection on the right abdomen just beneath the liver. *This is the collection for which a request has been made to aspirate tomorrow. The associated right colonic wall thickening and inflammatory changes remain present as well. 02/20/18: *ULTRASOUND-GUIDED ASPIRATION OF A PANCREATIC PSEUDOCYST- Diagnostic aspiration 18 cc light olivo, cloudy fluid, performed of the patient's right upper quadrant, subhepatic pseudocysts under sonographic guidance without evidence of complications. Specimens were sent to the laboratory for C&S, cell count with diff, and amylase as requested. 02/20/18: XRY-PORTABLE CHEST XRAY- (post PCC). The right arm peripherally inserted catheter is in satisfactory position. Persistent small pleural effusions and bibasilar atelectasis.
[2018-02-22 07:02] VITALS: BP 134/70
--- NOTE | 2018-02-22 08:39 | PN- Housestaff ---
Subjective Follow-up For: Smoldering Pancreatitis Subjective: Patient seen and examined at bedside this morning. He claims he continues to have right sided abdominal pain. He is currently on TPN and NPO. Patient otherwise says he is nauseous when receiving dilaudid. 2 Episodes of vomiting this morning. Called by nurse who states patient having a panic attack. Review of Systems Constitutional: Denies: see HPI. Objective Last 24 Hrs of Vital Signs/I&O Vital Signs Date Time Temp Pulse Resp B/P B/P Pulse O2 O2 Flow FiO2 Mean Ox Delivery Rate 02/22 1322 99.5 68 24 122/64 93 Room Air 02/22 0702 99.3 78 18 134/70 93 Room Air 02/21 2123 98.3 78 20 118/71 94 Room Air 02/21 1439 98.6 75 19 110/64 96 Room Air Intake & Output 02/22 1600 02/22 0800 02/22 0000 Intake Total 643.2 Output Total 750 300 Balance -106.8 -300 Intake, Lipid 83.2 Intake, Oral 60 Intake, 500 TPN/PPN Number 0 Bowel Movements Output, Urine 750 300 Patient 207 lb Weight Weight Bed scale Measurement Method Physical Exam General Appearance: Alert, Oriented X3, Cooperative, Moderate Distress Skin: No Rashes, No Breakdown HEENT: PERRLA, EOMI, Mucous Membr. moist/pink Cardiovascular: Regular Rate, Normal S1, Normal S2 Abdomen: Tender to palpation; non-distended; no masses appreciated Neurological: Normal Gait, Normal Speech, Strength at 5/5 X4 Ext, Normal Tone Extremities: No Clubbing, No Cyanosis, No Edema Vascular: Normal Pulses, Pulses Symmetrical Current Medications: Current Medications Sig/Oz Start time Last Medication Dose Route Stop Time Status Admin Acetaminophen 650 MG Q4P PRN 02/18 1630 AC 02/19 PO 1131 Ceftriaxone Sodium 1,000 MG DAILY 02/21 1014 AC 02/22 IV 0810 Fat Emulsion 500 ML Q24H 02/22 190 AC Intravenous IV 02/23 185 Fat Emulsion 250 ML ONCE ONE 02/21 190 AC 02/21 Intravenous IV 02/22 185 193 Fat Emulsion 150 ML Q24H 02/20 1900 DC 02/20 Intravenous IV 02/21 185 192 Gabapentin 300 MG Q8 02/18 1400 AC 02/22 PO 0509 Heparin Sodium 5,000 UNIT Q8 02/04 0600 AC 02/22 (Porcine) SC 0508 Hydromorphone HCl 2 MG Q3P PRN 02/17 1800 AC 02/22 IV 1138 Nicotine 7 MG DAILY 02/04 09 02/22 TOP 0810 Omeprazole 40 MG DAILY AC 02/07 0700 AC 02/22 PO 0508 Ondansetron HCl 4 MG ONCE ONE 02/21 173 DC 02/21 IV 02/21 1732006 Ondansetron HCl 4 MG Q6P PRN 02/04 0245 02/22 IV 1300 Oxycodone HCl 10 MG Q4P PRN 02/10 0315 02/22 PO 0728 Total Parenteral 1 UNIT ONE 02/22 1900 AC Nutrition IV 02/23 1859 Total Parenteral 1 UNIT ONE 02/21 1900 AC 02/21 Nutrition IV 02/22 Total Parenteral 1 UNIT ONE 02/20 190 DC 02/20 Nutrition IV 02/21 1859 192 Last 24 Hrs of Lab/Steven Results Last 24 Hrs of Labs/Mics: Laboratory Tests 02/22/1830: Anion Gap 5, Estimated GFR > 60, BUN/Creatinine Ratio 17.1, Magnesium 2.0, Triglycerides 81, CBC w Diff NO MAN DIFF REQ, RBC 3.42 L, MCV 89.5, MCH 30.1, MCHC 33.6, RDW 14.1, MPV 8.0, Gran % 83.4 H, Lymphocytes % 6.1 L, Monocytes % 10.1 H, Eosinophils % 0.3, Basophils % 0.1, Absolute Granulocytes 7.5 H, Absolute Lymphocytes 0.5 L, Absolute Monocytes 0.9 H, Absolute Eosinophils 0, Absolute Basophils 0 Assessment/Plan Assessment: Mr. Bynum is a 52yo M w/ PMH of diverticulitis, kidney stones s/p lithotripsy, gallstones s/p cholecystectomy, s/p Pippa procedure w/ temporary colostomy followed by revision in 2015, s/p hernia repair, reversible ischemia on nuclear stress test status post cardiac cath recently in 2014 presented to [facility] w/ N/V/D/severe intermittent ab pain since 1pm of 02/03/2018, endorseed loose BM, w/ intermittent non-bloody vomiting, mostly foods. Now with pseudocyst and evidence for superimposed infection. This represents a complex problem which will eventually require surgical intervention 02/22: Patient on IV antibiotiics given panceratic fluid growing gram negative pathology with sensitivites to follow. Monitoring for fever/leukocytosis/ deteriorating clinical picture for now. Patients course complicated with pseudocyst with gastroenterology and surgery on board. Currently NPO with TPN with intralipids and bowel rest. Attempting to wait 6-8 weeks untill wall of pseudocyst matures before surgical intervention although patient may require transfer to [place] for inpatient EUS if course deteroirates. Currently Afebrile with normal vital signs. Problem list 1 smoldering pancreatitis. Etiology as of now unclear. Etoh and choledocoltihiasis -Ruled out (negative MRCP). 2 hypokalemia-resolved 3 nicotine dependence 4 diarrhea with evidence of colitis on ct abd PLAN: * Aspiration fluid in RUQ growing gram -ve pathology with sensiti vities pending * Ceftriaxone 1g/daily for now; monitor for fevers/leukocytosis * TPN Day 3 via PICC line; monitor triglycerides/electrolytes while on TPN * Continue Normal Saline IV fluids @100/hr and trend sodium levels given patients hypovolemic hyponatremia * General Surgery on board following patient: plan for current treatment until next week at which time CT should be repeated on 02/26/18 * GI Dr. Truong on board: NPO (TPN w/ intralipids), bowel rest; serial CBC, LEFTS, lytes, BUN/Cr, GFR * *If patient deteriorates consider transfer to [facility] for inpatient EUS * Attempt to wait 6-8 weeks until wall of pseudocyst matures prior to surgical intervention Diet: NPO - TPN with intralipids; bowel rest DVT PPx: Heparin SC Code Status: Full Code Problem List: 1. Pancreatitis 2. Pseudocyst of pancreas Pain Ratin Pain Location: epigastric abdominal pain Pain Goal: Pain 4 or less Pain Plan: as per pain pathway Tomorrow's Labs & Rationales: cbc bep lfts
[2018-02-22 08:58] LABS: ABSOLUTE BASOPHIL COUNT 0 /CUMM (0.0-0.2); ABSOLUTE EOSINOPHIL COUNT 0 /CUMM (0.0-0.7); ABSOLUTE GRANULOCYTE CT 7.5 /CUMM (1.4-6.5); ABSOLUTE LYMPH COUNT 0.5 /CUMM (1.2-3.4); ABSOLUTE MONOCYTE COUNT 0.9 /CUMM (0.10-0.60); BASOPHIL % 0.1 % (0.0-2.0); EOSINOPHIL % 0.3 % (0-5); GRANULOCYTE % 83.4 % (42.2-75.2); HEMATOCRIT 30.6 % (42-52); MEAN CORPUSCULAR HGB 30.1 PG (27.0-31.0); MEAN CORPUSCULAR HGB CONC 33.6 G/DL (33.0-37.0); MEAN CORPUSCULAR VOLUME 89.5 FL (80.0-94.0); PLATELET COUNT 351 /CUMM (130-400); RBC DISTRIBUTION WIDTH 14.1 % (11.5-14.5); RED BLOOD CELL CT 3.42 /CUMM (4.70-6.10); WHITE BLOOD CELL COUNT 8.9 /CUMM (4.8-10.8)
[2018-02-22 13:22] VITALS: BP 122/64
[2018-02-22 14:52] VITALS: BP 131/60
--- NOTE | 2018-02-22 16:25 | PN- Att Addend ---
Attending Addendum Attending Brief Note Patient sitting in the chair. Complaining that he has not moved his bowels in that he is very gassy and having some hiccups. The pain is still present. Hyperalimentation and progress. Vital signs are stable no fever. No other changes on physical. Continue present treatment continue IV antibiotics for the infected fluid Intake & Output 02/22 1600 02/22 0400 02/21 1600 02/21 0400 02/20 1600 02/20 0400 Intake Total 1126.4 868.0 783.9 1600 400 Output Total 850 550 421 469 1846 450 Balance 276.4 -550 268.0 423.9 425 -50 Intake, IV 810 041 6866 400 Intake, Lipid 166.4 100.4 18.9 Intake, Oral 60 0 0 Intake, 900 667.6 125 TPN/PPN Number 0 1 0 Bowel Movements Output, Urine 850 550 553 494 4975 450 Patient 207 lb 214 lb 205 lb Weight Weight Bed scale Bed scale Measurement Method Current Medications Sig/Oz Start time Last Medication Dose Route Stop Time Status Admin Acetaminophen 650 MG Q4P PRN 02/18 1630 AC 02/22 PO 1505 Ceftriaxone Sodium 1,000 MG DAILY 02/21 1014 AC 02/22 IV 0810 Fat Emulsion 500 ML Q24H 02/22 190 AC Intravenous IV 02/23 185 Fat Emulsion 250 ML ONCE ONE 02/21 190 AC 02/21 Intravenous IV 02/22 1859 1931 Fat Emulsion 150 ML Q24H 02/20 1900 DC 02/20 Intravenous IV 02/21 1859 1922 Gabapentin 300 MG Q8 02/18 1400 AC 02/22 PO 1425 Heparin Sodium 5,000 UNIT Q8 02/04 06 AC 02/22 (Porcine) SC 1425 Hydromorphone HCl 2 MG Q3P PRN 02/17 1800 AC 02/22 IV 1138 Nicotine 7 MG DAILY 02/04 09 AC 02/22 TOP 0810 Omeprazole 40 MG DAILY AC 02/07 0700 AC 02/22 PO 0508 Ondansetron HCl 4 MG ONCE ONE 02/21 1730 DC 02/21 IV 02/21 1732006 Ondansetron HCl 4 MG Q6P PRN 02/04 0245 AC 02/22 IV 1300 Oxycodone HCl 10 MG Q4P PRN 02/10 0315 AC 02/22 PO 1607 Total Parenteral 1 UNIT ONE 02/22 1900 AC Nutrition IV 02/23 1859 Total Parenteral 1 UNIT ONE 02/21 1900 AC 02/21 Nutrition IV 02/22 Total Parenteral 1 UNIT ONE 02/20 1900 DC 02/20 Nutrition IV 02/21 Laboratory Tests 02/22/18 0630: Anion Gap 5, Estimated GFR > 60, BUN/Creatinine Ratio 17.1, Magnesium 2.0, Triglycerides 81, CBC w Diff NO MAN DIFF REQ, RBC 3.42 L, MCV 89.5, MCH 30.1, MCHC 33.6, RDW 14.1, MPV 8.0, Gran % 83.4 H, Lymphocytes % 6.1 L, Monocytes % 10.1 H, Eosinophils % 0.3, Basophils % 0.1, Absolute Granulocytes 7.5 H, Absolute Lymphocytes 0.5 L, Absolute Monocytes 0.9 H, Absolute Eosinophils 0, Absolute Basophils 0 02/21/18 0600: Anion Gap 7, Estimated GFR > 60, BUN/Creatinine Ratio 18.6, Phosphorus 3.1, Magnesium 1.9, CBC w Diff NO MAN DIFF REQ, RBC 3.49 L, MCV 90.2, MCH 30.5, MCHC 33.8, RDW 13.8, MPV 7.9, Gran % 89.3 H, Lymphocytes % 4.3 L, Monocytes % 6.2, Eosinophils % 0.1, Basophils % 0.1, Absolute Granulocytes 8.5 H, Absolute Lymphocytes 0.4 L, Absolute Monocytes 0.6, Absolute Eosinophils 0, Absolute Basophils 0 02/20/18 1235: Fld Total RBCs Counted 02/20/18 1235: Fluid Amylase 42 02/20/18 0715: Anion Gap 7, Estimated GFR > 60, BUN/Creatinine Ratio 11.3, Prealbumin < 3.0 L, Triglycerides 79, CBC w Diff MAN DIFF ORDERED, RBC 3.51 L, MCV 89.4, MCH 31.2 H, MCHC 34.9, RDW 14.1, MPV 7.8, Gran % 93.2 H, Lymphocytes % 2.4 L, Monocytes % 4.3, Eosinophils % 0.1, Basophils % 0, Absolute Granulocytes 14.6 H, Segmented Neutrophils 87 H, Band Neutrophils 6 H, Absolute Lymphocytes 0.4 L, Lymphocytes 4 L, Monocytes 3, Absolute Monocytes 0.7 H, Absolute Eosinophils 0 , Absolute Basophils 0, Platelet Estimate VERIFIED BY SMEAR, Normocytic RBCs VERIFIED, Normochromic RBCs VERIFIED Microbiology 02/20 123 BODY FLUID: Body Fluid Culture - COMP ENTEROBACTER CLOACAE 02/20 1235 BODY FLUID: Gram Stain - COMP Microbiology 02/20 1235 BODY FLUID: Body Fluid Culture - COMP ENTEROBACTER CLOACAE 02/20 1235 BODY FLUID: Gram Stain - COMP Vital Signs Date Time Temp Pulse Resp B/P B/P Pulse O2 O2 Flow FiO2 Mean Ox Delivery Rate 02/22 1452 98.7 82 18 131/60 96 Room Air 02/22 1322 99.5 68 24 122/64 93 Room Air 02/22 0702 99.3 78 18 134/70 93 Room Air 02/21 2123 98.3 78 20 118/71 94 Room Air
--- NOTE | 2018-02-22 21:34 | PN- Gastroenterology ---
Assessment/Plan GI Assessment/Recommendations: (*Please refer to my initial inpt GI consultation of 02/04/18. I assumed the weekly inpatient GI service from Dr. Jenae Ardon on 02/21/18. Extensive records reviewed). 52 y/o male, HTN, non-DM, renal stones post ESWL, smoker, hx GERD, anxiety, 02/27: CCKY for biliary colic (path: chronic cholecystitis, cholesterolosis, & cholelithiasis), hx diverticulosis coli, post 09/05/15: Pippa's procedure for sigmoid diverticulitis with phlegmon, f/b 12/27/15: reversal of colostomy, KRISTIN, reinforcement of midline fascia with mesh. This was followed by 08/14/16: open mesh repair of ventral incisional hernia, along with bilateral advancement rectus muscular fascial flap reconstruction, all per Dr. Cordon. He also has hx gout & had numerous orthopedic procedures, including right rotator cuff surgery, & left elbow ulnar surgery. *He had a chronic pain syndrome in the right flank. 03/15/06: EGD/colonoscopy (purged) gastric bxs unremarkable, H. pylori negative; bxs GEJ- benign inflammation, without Collier's esophagus. 09/06/14: Combined baseline upper endoscopy to the third portion of the duodenum with biopsies, plus follow up colonoscopy to the terminal ileum with biopsies (*done for GERD & chronic vague right-sided abdominal sx, requiring multiple ER visits & OV with the GI SWIMMING POOL INSTALLER)- ? mild gastroparesis with bile cleared from proximal stomach, random bxs D2/D3- neg, random bx antrum- mild CAG, HP-neg, bx inflamed cardia- mild CFG , HP-neg, 2 cm HH, random bxs distal esophagus at 42 cm/Z line & at 39 cm- nl esophageal mucosa, neg EOE; mod L tics, focal sigmoid erythema from 25-30 cm in midst of tics-colonic mucosa with focal hyperplastic change & hemorrhage, random bxs of TI, right colon, left colon, & rectum- all neg. (The pt was rxd Nexium 40 mg daily then) He was due for f/u surveillance colonoscopy x 10 yrs (avg risk) = 08/2024. He was told if inc sx, to consider GES (which he never had), TFT with TSH, HgbA1C, celiac panel, etc. He was then seen in inpatient GI consultation 04/22/[address] Sprague for sigmoid diverticulitis, txd with antibiotics. He ultimately then had 09/05/15: Pippa 's procedure, followed by 12/27/15: reversal of colostomy/KRISTIN & 08/14/16: open mesh repair of ventral incisional hernia, as above. He was most recently seen in inpatient GI consultation by Dr. Jenae Ardon , for chronic progressive vague right-sided abdominal/right flank pain, which was somewhat positional in nature. This was felt to have a neuropathic quality. History, exam, and imaging did not show any acute intra-abdominal or retroperitoneal process. He had a minimally elevated lipase then which was felt to be nonspecific. There was no clinical evidence of pancreatitis. A radicular process vs. zoster was considered, & he was rxd ANGE & Valacyclovir. A Lyme titer then was negative, although he did get a 10 day course of Doxycyline. Since 1 PM on 02/03/18, the patient noted nausea, vomiting, diarrhea, and intermittent, severe intense, abdominal pain, described as "someone beating the hell out of my stomach". It was localized to the periumbilical region, radiating suprapubically and epigastrically. Initially, the pain was "3 out of 10", then became "10 out of 10" and constant in nature. He took Iliana-Hustler, without relief. He arrived at the [facility] 02/04/18 at 12:14 a.m. for the above, at which point, he was HTN, with BP 218/97, P 57, R 22, T 97.5, O2 sat RA 100%. He was initially in tears from the pain. 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 The vomitus initially showed partially digested food, but then became clear, non-bloody, non-bilious. He had chronic GERD, for which he took Tums prn. He was not on longstanding PPI. He denied any odynophagia or dysphagia. He denied using any NSAIDS, thiazides, or Sulfa meds. He denied any hematemesis, melena, or BRBPR. He denied any EtOH, transfusions, IVDA, HIV, or hx viral hepatitis. He denied any definite jaundice, dark urine, light stools, pruritus, or confusion. He denied any fevers, chills, night sweats, CP, SOB, symptoms of UTI or URI. There was no abdominal trauma. His appetite was fair, since his multiple abdominal surgeries a few years ago. He denied any early satiety. His weight had been stable for the past 2 years, but he stated that he was previously obese & lost > 100 lbs a few years ago, in the midst of tx of his divericulitis. There is no FHx GI Ca, GI disease, inherited pancreatitis, or inherited liver disease. He was found to have newly elevated LFTs & elevated lipase (*see labs). 11/24/17: minimal lipase 401, with nl LFTs. 02/04/18: 0116- Admission labs-WBC 11.5 (92% gran/11 gran Ab), H/H 18/51.3, MCV 90, RDW 13.9, PLT 137, glucose 125, BUN/CR 16/1.1, GFR > 60, Na 141, K 4.0, HCO3 23, AG 14, Ca 10.1, amylase 3643, lipase > 10K, albumin 4.7, globulin 3.9, Tbil 2.3, DBil 1.4, alk phos 196, AST 266, ALT 219, troponin < 0.01; (no U/A or PT/ PTT). 02/04/18: 0246- *TG 101, [EtOH] < 10. 02/04/18: EKG- SB @ 57, nl axis, WI .20, no ischemic change. 02/04/18: CT ABDOMEN AND PELVIS WITHOUT IV CONTRAST (*per Krishna CARRENO, limited study w/o IV cont)- Prominent inflammatory changes surrounding the pancreas with edematous appearance of the pancreas. This is suggestive of acute pancreatitis. No PD dilitation. Post CCKY with postop CBD 1.3 cm (chronic), no filling defect. Stable ectatic appearance of the left common iliac artery. Normal AP. No hernia. DJD. 02/04/18: US ABDOMEN COMPLETE- 1. Edematous pancreas with peripancreatic fluid, consistent with acute pancreatitis. 2. The pancreatic head and portions of the tail are not visualized. 3. Intra and extrahepatic ductal dilatation is seen. Common bile duct measuring up to 1 cm. Findings may at least in part be related to the patient's postcholecystectomy state with similar appearance seen on older CT scan from 07/11/2017, at which time, no evidence of acute pancreatitis was seen. In the visualized portions of the common bile duct on today's exam, no filling defect is seen. Distal most CBD is, however, not visualized. Close clinical correlation is requested. 4. Status post cholecystectomy. *Unfortunately, no MRCP available at [place] on Tuesdays, prohibiting this on . *Most likely, initially the patient was felt to have gallstone pancreatitis. His TG were normal. He did bump up his LFTs. *He had no signs or symptoms of cholangitis. The admission CT was somewhat limited without IV contrast. Even so, it showed pancreatic inflammation. Subsequent admission ultrasound showed chronic mild nonspecific dilated CBD & mildly dilated IHD, but apparently, these findings are chronic, post CCKY. However, the elevated LFTs are new. Unfortunately, MRCP was not available at [place] on Tuesdays, & therefore, could not be obtained on 02/04/18. He appeared somewhat hemoconcentrated on admission, as did his HCT 51.3. *He had 1 grave sign by Kala criteria on admission, namely elevated AST, although no LDH was sent. *He had 0 grave signs by BiSAP criteria on admission, but no CXR was obtained to rule out pleural effusions. ( Limited views of the lung bases on CT AP were clear). He denied EtOH. He is a 30 pk yr cigarette smoker, which is a risk factor for pancreatitis. Surprisingly, 02/05/18: MRCP was negative for choledocholithiasis. The patient has had numerous imaging studies since admission, *including aspirate of right subhepatic fluid collection, performed on 02/20/18, with right sided PICC placed that day, as well. 02/20/18: BF amylase 42, BF cell count could not be done by lab, g stain w/o WBC , with *BF C&S- mod GNR. *As of 02/21/18, the pt was hemodynamically stable, & afebrile, with O2 sat RA 94%. His leukocytosis was improved. There was no hemoconcentration by labs. He was malnourished with 02/20/18: PAB < 3, TG 79 (*TPN rxd). LFTs had normalized except for decreased synthetic function. He still had some abdominal pain, mostly in the RLQ & right flank. He also noted nausea and mild vomiting. He no longer had fevers or chills. He was no longer yellow. *The patient was put on IV Ceftriaxone 02/21/18, for acute pancreatitis with pseudocyst and infected necrosis. *Plans are to try to wait 6-8 weeks until the wall of the pseudocyst matures, prior to considering surgical intervention. * Another option could be eventual drainage via EUS, and will discuss with surgery , although the pt did not appear to be desirous of going to [facility], ? "because of transportation issues, which would arise when he was D/C from there". 02/18/18: nl LFTs xc alb 2.6, glob 2.8 02/20/18: PAB < 3.0 02/21/18: BF C&S- E. Cloacae (S-Fortaz/Ceftriaxone/Cipro/Gent/Bactrim). 02/22/18: WBC 8.9, H/H 10.3/30.6, PLT 351, BUN/Cr 12/0.7, GFR > 60, Na 130, K 3.8, HCO3 29, AG 5, Mg 2.0, TG 81 *As of 02/22/18, the patient was hemodynamically stable, with Tm 99.5 (98.7), with O2 sat RA 96%. The patient had a panic attack earlier today with anxiety. He remained NPO on TPN. He had some mild nausea with Dilaudid. He was having loose BMs. His right-sided abdominal pain was slowly improving, as well as his leukocytosis. He denied any jaundice, vomiting, or chills. He also noted hiccups for the past few days. He denied any CP, SOB, or pleuritic pain. 02/20: CXR-small pleural effusions and bibasilar atelectasis. *Overall, he appeared to be slowly improving. A/P: Acute pancreatitis with infected necrosis, pseudocyst, abdominal pain, hiccoughs (the latter probably from some diaphragmatic irritation) *SUGGEST: NPO. TPN with intralipids. Bowel rest. Strict I/O's. Serial CBC, *LFTs, lytes, BUN/Cr, GFR. *Watch for hemoconcentration (i.e.- rising Hgb or BUN) despite IVF/ TPN, which would be a poor prognostic sign. IV Zofran. Analgesics. ANGE. IV Protonix 40 mg daily, for GERD. D/C cigarettes. DVT prophylaxis. Follow-up with surgery. Continue narcotic analgesics and antiemetics. If hiccoughs worsen, consider repeat CXR and trial of Thorazine (Chlorpromazine 25-50 mg po TID). If patient deteriorates, consider transfer to [facility] for inpatient EUS. *Try to wait 6-8 weeks until the wall of the pseudocyst matures, prior to considering surgical intervention. *Another option could be eventual drainage via EUS, and * will discuss with surgery. (As an aside, he is due for f/u surveillance colonoscopy in 08/2024). Further GI recommendations to follow, depending on clinical course. Problem List: 1. Acute pancreatitis with infected necrosis 2. Pseudocyst of pancreas 3. Abdominal pain 4. Hiccoughs Subjective Subjective: 02/18/18: nl LFTs xc alb 2.6, glob 2.8 02/20/18: PAB < 3.0 02/21/18: BF C&S- E. Cloacae (S-Fortaz/Ceftriaxone/Cipro/Gent/Bactrim). 02/22/18: WBC 8.9, H/H 10.3/30.6, PLT 351, BUN/Cr 12/0.7, GFR > 60, Na 130, K 3.8, HCO3 29, AG 5, Mg 2.0, TG 81 *As of 02/22/18, the patient was hemodynamically stable, with Tm 99.5 (98.7), with O2 sat RA 96%. The patient had a panic attack earlier today with anxiety. He remained NPO on TPN. He had some mild nausea with Dilaudid. He was having loose BMs. His right-sided abdominal pain was slowly improving, as well as his leukocytosis. He denied any jaundice, vomiting, or chills. He also noted hiccups for the past few days. He denied any CP, SOB, or pleuritic pain. 02/20: CXR-small pleural effusions and bibasilar atelectasis. *Overall, he appeared to be slowly improving. Review of Systems: Full 14 point ROS otherwise noncontributory, & as above. Review of Systems Constitutional: Reports; weight loss as inpt. Denies: chills, diaphoresis, fever, malaise, weakness EENTM: Denies: blurred vision, double vision, visual changes, eye pain, eye drainage, eye tearing, icterus, ear discharge, ear pain, ear redness, hearing changes, nasal congestion, epistaxis, nasal pain, throat pain, throat swelling, mouth pain, tooth pain. Cardiovascular: Denies: chest pain, edema, orthopena, palpitations, peripheral edema, syncope. Respiratory: Denies: cough, hemoptysis, orthopnea, short of breath, sputum production, stridor, wheezing. GI: Reports: abdominal pain-> sowly improving; nausea-> persist. Occ hiccoughs. Denies: bloating, vomiting, constipation, diarrhea, distention, bowel incontinence, melena, bloody stool, changes in stool, steatorrhea. Genitourinary: Denies: discharge, dysuria, frequency, hematuria, hesitation, nocturia, pain, urgency. Musculoskeletal: Denies: back pain, gout, joint pain, joint swelling, muscle pain, muscle stiffness, neck pain. Skin: Denies: cysts, change in skin color, change in hair/nails, dryness, erythema, jaundice, lesions, lymphangitis, lumps, moles, rash. Neurological/Psychological: Reports: anxiety, emotional problems. Denies: ataxia, cognitive dysfunction, confusion, depressed, dementia, headache, numbness, paresthesia, pre-existing deficit, petit mal seizures, tingling, tremors, tonic-clonic seizures, unable to move lower ext, unable to move upper ext, weakness, other. Hematologic/Endocrine: Denies: bruising, bleeding, polyuria, polydipsia. Immunologic/Allergic: Denies: splenectomy, HIV/AIDS, lymphadenopathy. All Other Systems: Reviewed and Negative Objective Vital Signs and I&Os Vital Signs Date Time Temp Pulse Resp B/P B/P Pulse O2 O2 Flow FiO2 Mean Ox Delivery Rate 02/22 2144 98.1 69 18 120/80 96 Room Air 02/22 1452 98.7 82 18 131/60 96 Room Air 02/22 1322 99.5 68 24 122/64 93 Room Air 02/22 0702 99.3 78 18 134/70 93 Room Air Intake & Output 02/22 1600 02/22 0400 02/21 0400 Intake Total 1126.4 868.0 783.9 1600 400 Output Total 850 550 671 342 8268 450 Balance 276.4 -550 268.0 423.9 425 -50 Intake, IV 715 573 7490 400 Intake, Lipid 166.4 100.4 18.9 Intake, Oral 60 0 0 Intake, 900 667.6 125 TPN/PPN Number 0 1 0 Bowel Movements Output, Urine 850 550 325 842 7177 450 Patient 207 lb 214 lb 205 lb Weight Weight Bed scale Bed scale Measurement Method Physical Exam: Well-developed, well-nourished male in mild distress, non-toxic appearing. Sclera anicteric. Conjunctiva pink. Oropharynx clear. Slightly dry mucus membranes. No oral thrush. No aphthous ulcers. There is no adenopathy, thyromegaly, or JVD. No peripheral stigmata of inflammatory bowel disease or chronic liver disease on exam. No spiders on the anterior chest wall. No gynecomastia. No CVA tenderness. No spine tenderness. Lungs: clear to A&P, with slight decreased BS at bases B/L. No wheezing, rales, or rhonchi. Heart exam: regular rate rhythm, S1 and S2, without any murmur. Abdominal exam: normal bowel sounds, soft belly, mildly distended, *improved RLQ tenderness, without guarding or rebound. No mass. No organomegaly. No definite fluid shift. No epigastric bruit. No pulsatile mass. Multiple scars. Digital rectal exam: previously deferred by patient. Extremities : without C, C, or E. No rash. Clean site at [facility]. Mild DJD. No palmar erythema. No Dupuytren's contractures. No palpable cords. Distal pulses 2+ bilaterally. DTRs 2+ bilaterally. Right handed. CN II-XII prev intact. Motor 5 /5 B/L. Alert and oriented x 3. No tremor. No asterixis. Current Medications: Current Medications Sig/Oz Start time Last Medication Dose Route Stop Time Status Admin Acetaminophen 650 MG Q4P PRN 02/18 1630 AC 02/22 PO 1505 Ceftriaxone Sodium 1,000 MG DAILY 02/21 1014 AC 02/22 IV 0810 Fat Emulsion 500 ML Q24H 02/22 190 AC 02/22 Intravenous IV 02/23 Fat Emulsion 250 ML ONCE ONE 02/21 1900 DC 02/21 Intravenous IV 02/22 Gabapentin 300 MG Q8 02/18 1400 AC 02/22 PO 2131 Heparin Sodium 5,000 UNIT Q8 02/04 0600 AC 02/22 (Porcine) SC 213 Hydromorphone HCl 2 MG Q3P PRN 02/17 1800 AC 02/22 IV 195 Nicotine 7 MG DAILY 02/04 0900 AC 02/22 TOP 0810 Omeprazole 40 MG DAILY AC 02/07 0700 AC 02/22 PO 0508 Ondansetron HCl 4 MG Q6P PRN 02/04 0245 AC 02/22 IV 194 Oxycodone HCl 10 MG Q4P PRN 02/10 0315 AC 02/22 PO 2131 Total Parenteral 1 UNIT ONE 02/22 1900 AC 02/22 Nutrition IV 02/23 Total Parenteral 1 UNIT ONE 02/21 190 DC 02/21 Nutrition IV 02/22 Results Pertinent Lab Results: Laboratory Tests 02/22 02/21 0630 0600 Chemistry Sodium (137 - 145 mmol/L) 130 L 130 L Potassium (3.5 - 5.1 mmol/L) 3.8 4.0 Chloride (98 - 107 mmol/L) 96 L 94 L Carbon Dioxide (22 - 30 mmol/L) 29 29 Anion Gap (5 - 16) 5 7 BUN (9 - 20 mg/dL) 12 13 Creatinine (0.7 - 1.2 mg/dL) 0.7 0.7 Estimated GFR (>60 ml/min) > 60 > 60 BUN/Creatinine Ratio (7 - 25 %) 17.1 18.6 Phosphorus (2.5 - 4.5 mg/dL) 3.1 Magnesium (1.6 - 2.3 mg/dL) 2.0 1.9 Triglycerides (<150 mg/dL) 81 Hematology CBC w Diff NO MAN DIFF REQ NO MAN DIFF REQ WBC (4.8 - 10.8 /CUMM) 8.9 9.6 RBC (4.70 - 6.10 /CUMM) 3.42 L 3.49 L Hgb (14.0 - 18.0 G/DL) 10.3 L 10.6 L Hct (42 - 52 %) 30.6 L 31.5 L MCV (80.0 - 94.0 FL) 89.5 90.2 MCH (27.0 - 31.0 PG) 30.1 30.5 MCHC (33.0 - 37.0 G/DL) 33.6 33.8 RDW (11.5 - 14.5 %) 14.1 13.8 Plt Count (130 - 400 /CUMM) 351 331 MPV (7.4 - 10.4 FL) 8.0 7.9 Gran % (42.2 - 75.2 %) 83.4 H 89.3 H Lymphocytes % (20.5 - 51.1 %) 6.1 L 4.3 L Monocytes % (1.7 - 9.3 %) 10.1 H 6.2 Eosinophils % (0 - 5 %) 0.3 0.1 Basophils % (0.0 - 2.0 %) 0.1 0.1 Absolute Granulocytes (1.4 - 6.5 /CUMM) 7.5 H 8.5 H Absolute Lymphocytes (1.2 - 3.4 /CUMM) 0.5 L 0.4 L Absolute Monocytes (0.10 - 0.60 /CUMM) 0.9 H 0.6 Absolute Eosinophils (0.0 - 0.7 /CUMM) 0 0 Absolute Basophils (0.0 - 0.2 /CUMM) 0 0 02/20 02/20 02/20 1235 1235 0715 Chemistry Sodium (137 - 145 mmol/L) 130 L Potassium (3.5 - 5.1 mmol/L) 4.1 Chloride (98 - 107 mmol/L) 96 L Carbon Dioxide (22 - 30 mmol/L) 27 Anion Gap (5 - 16) 7 BUN (9 - 20 mg/dL) 9 Creatinine (0.7 - 1.2 mg/dL) 0.8 Estimated GFR (>60 ml/min) > 60 BUN/Creatinine Ratio (7 - 25 %) 11.3 Prealbumin (17.6 - 36.0 mg/dL) < 3.0 L Triglycerides (<150 mg/dL) 79 Hematology CBC w Diff MAN DIFF ORDERED WBC (4.8 - 10.8 /CUMM) 15.6 H RBC (4.70 - 6.10 /CUMM) 3.51 L Hgb (14.0 - 18.0 G/DL) 10.9 L Hct (42 - 52 %) 31.4 L MCV (80.0 - 94.0 FL) 89.4 MCH (27.0 - 31.0 PG) 31.2 H MCHC (33.0 - 37.0 G/DL) 34.9 RDW (11.5 - 14.5 %) 14.1 Plt Count (130 - 400 /CUMM) 379 MPV (7.4 - 10.4 FL) 7.8 Gran % (42.2 - 75.2 %) 93.2 H Lymphocytes % (20.5 - 51.1 %) 2.4 L Monocytes % (1.7 - 9.3 %) 4.3 Eosinophils % (0 - 5 %) 0.1 Basophils % (0.0 - 2.0 %) 0 Absolute Granulocytes (1.4 - 6.5 /CUMM) 14.6 H Segmented Neutrophils (42.2 - 75.2 %) 87 H Band Neutrophils (0.0 - 5.0 %) 6 H Absolute Lymphocytes (1.2 - 3.4 /CUMM) 0.4 L Lymphocytes (20.5 - 51.1 %) 4 L Monocytes (1.7 - 9.3 %) 3 Absolute Monocytes (0.10 - 0.60 /CUMM) 0.7 H Absolute Eosinophils (0.0 - 0.7 /CUMM) 0 Absolute Basophils (0.0 - 0.2 /CUMM) 0 Platelet Estimate (ADEQUATE) VERIFIED BY SMEAR Normocytic RBCs VERIFIED Normochromic RBCs VERIFIED Other Body Source Fld Total RBCs Counted (0 /CUMM) Fluid Amylase (U/L) 42 Imaging/Other Studies: 02/04/18: EKG- SB @ 57, nl axis, WI .20, no ischemic change. 02/04/18: CT ABDOMEN AND PELVIS WITHOUT IV CONTRAST (*per Krishna CARRENO, limited study w/o IV cont)- Prominent inflammatory changes surrounding the pancreas with edematous appearance of the pancreas. This is suggestive of acute pancreatitis. No PD dilitation. Post CCKY with postop CBD 1.3 cm (chronic), no filling defect. Stable ectatic appearance of the left common iliac artery. Normal AP. No hernia. DJD. 02/04/18: US ABDOMEN COMPLETE- 1. Edematous pancreas with peripancreatic fluid, consistent with acute pancreatitis. 2. The pancreatic head and portions of the tail are not visualized. 3. Intra and extrahepatic ductal dilatation is seen. Common bile duct measuring up to 1 cm. Findings may at least in part be related to the patient's postcholecystectomy state with similar appearance seen on older CT scan from 07/11/2017, at which time, no evidence of acute pancreatitis was seen. In the visualized portions of the common bile duct on today's exam, no filling defect is seen. Distal most CBD is, however, not visualized. Close clinical correlation is requested. 4. Status post cholecystectomy. *Unfortunately, no MRCP available at [place] on Tuesdays, prohibiting this on . 02/05/18: XRY-CHEST XRAY, TWO VIEWS- No acute cardiopulmonary process. 02/05/18: MR ABDOMEN WITHOUT CONTRAST/MRCP- 1. Acute interstitial pancreatitis is seen with pancreatic parenchymal edema and peripancreatic soft tissue edema and stranding. Associated circumferential wall thickening in the duodenum and proximal jejunum is seen, consistent with sympathetic changes to the pancreatic inflammation. 2. No evidence of variant ductal anatomy. No definite pancreatic head mass seen on noncontrast study. 3. Mild intrahepatic ductal dilatation and moderate extrahepatic ductal dilatation to 1 cm is seen. There is smooth tapering of the common bile duct to 0.4 cm in the preampullary region with no evidence of choledocholithiasis. Findings may be related to the patient's postcholecystectomy state. 4. A few scattered bilateral renal cysts are incidentally seen. 02/09/18: CT ABD & PELVIS W ORAL & IV CONT- Interval increase in pancreatic edema with increasing abdominal fluid likely sales representative meats of progressing pancreatitis. Right greater than left bilateral pleural effusions with associated airspace disease. 02/13/18: XRY-CHEST XRAY, TWO VIEWS- Bibasilar subsegmental atelectasis with small right more than left pleural effusions. No dense consolidation. 02/14/18: XRY-PORTABLE CHEST XRAY- Bilateral pleural effusions with bibasilar airspace opacity, consolidation atelectasis. These basilar densities are greater at the right lung base than the left. 02/15/18: [id number] VIEWS- No evidence of free air or air-fluid levels to suggest any perforation or obstruction. No organomegaly. 02/15/18: CT ABD & PELVIS W IV CONTRAST- 1. Similar appearance of the pancreas with diffuse edema without definite areas of necrosis. There are acute peripancreatic fluid collections seen, possibly decreasing since the prior study as detailed above. There is slightly increased organization with thin enhancing mascorro. 2. Right colonic wall thickening and submucosal fat proliferation, new since 11/22/2017. Whether this is representing acute colitis versus reaction to the closely adjacent fluid collections and pancreatitis is unclear. Clinical correlation requested. 3. Other chronic, nonacute findings as above. 02/18/18: XRY-CHEST XRAY, TWO VIEWS- Stable bibasilar airspace disease and small pleural effusions. : CT ABDOMEN WITHOUT AND WITH CONTRAST Unchanged inflammatory process involving the pancreas with peripancreatic fluid collections with one more organized discrete collection on the right abdomen just beneath the liver. *This is the collection for which a request has been made to aspirate tomorrow. The associated right colonic wall thickening and inflammatory changes remain present as well. 02/20/18: *ULTRASOUND-GUIDED ASPIRATION OF A PANCREATIC PSEUDOCYST- Diagnostic aspiration 18 cc light olivo, cloudy fluid, performed of the patient's right upper quadrant, subhepatic pseudocysts under sonographic guidance without evidence of complications. Specimens were sent to the laboratory for C&S, cell count with diff, and amylase as requested. 02/20/18: XRY-PORTABLE CHEST XRAY- (post PCC). The right arm peripherally inserted catheter is in satisfactory position. Persistent small pleural effusions and bibasilar atelectasis.
[2018-02-22 21:44] VITALS: BP 120/80
[2018-02-23 06:32] VITALS: BP 142/82
[2018-02-23 08:04] LABS: ABSOLUTE BASOPHIL COUNT 0 /CUMM (0.0-0.2); ABSOLUTE EOSINOPHIL COUNT 0.1 /CUMM (0.0-0.7); ABSOLUTE GRANULOCYTE CT 6.7 /CUMM (1.4-6.5); ABSOLUTE LYMPH COUNT 0.5 /CUMM (1.2-3.4); ABSOLUTE MONOCYTE COUNT 1.1 /CUMM (0.10-0.60); BASOPHIL % 0.2 % (0.0-2.0); EOSINOPHIL % 0.7 % (0-5); GRANULOCYTE % 80.3 % (42.2-75.2); HEMATOCRIT 30.9 % (42-52); MEAN CORPUSCULAR HGB 30.4 PG (27.0-31.0); MEAN CORPUSCULAR VOLUME 89.5 FL (80.0-94.0); MEAN PLATELET VOLUME 8.1 FL (7.4-10.4); PLATELET COUNT 346 /CUMM (130-400); RBC DISTRIBUTION WIDTH 14.7 % (11.5-14.5); RED BLOOD CELL CT 3.45 /CUMM (4.70-6.10); WHITE BLOOD CELL COUNT 8.4 /CUMM (4.8-10.8)
--- NOTE | 2018-02-23 08:47 | PN- Housestaff ---
Subjective Follow-up For: Smoldering Pancreatitis Subjective: Patient seen and examined at bedside this morning. He claims he continues to have right sided abdominal pain. He is currently on TPN Day 3 std electrolytes and NPO. Patient having on going hiccups affecting his ability to speak and breath. Claims he would feel much better if it went away. 1X dose IM thorazine 25mg given with a Regalan regimen for his hiccups. Review of Systems Constitutional: Denies: see HPI. Objective Last 24 Hrs of Vital Signs/I&O Vital Signs Date Time Temp Pulse Resp B/P B/P Pulse O2 O2 Flow FiO2 Mean Ox Delivery Rate 02/23 0632 99.1 74 20 142/82 94 02/22 2144 98.1 69 18 120/80 96 Room Air 02/22 1452 98.7 82 18 131/60 96 Room Air 02/22 1322 99.5 68 24 122/64 93 Room Air Intake & Output 02/23 1600 02/23 0800 02/23 0000 Intake Total 643.2 Output Total 500 500 Balance -500 143.2 Intake, IV 83.2 Intake, Oral 60 Intake, 500 TPN/PPN Output, Urine 500 500 Patient 208 lb Weight Weight Bed scale Measurement Method Physical Exam General Appearance: Alert, Oriented X3, Moderate Distress, Hiccups Skin: No Rashes, No Breakdown HEENT: EOMI, Mucous Membr. moist/pink Cardiovascular: Normal S1, Normal S2 Lungs: Clear to Auscultation, Normal Air Movement Abdomen: Tender to palpation; diffuse epigastric pain Neurological: Normal Speech, Strength at 5/5 X4 Ext Extremities: No Clubbing, No Cyanosis, No Edema Vascular: Normal Pulses Current Medications: Current Medications Sig/Oz Start time Last Medication Dose Route Stop Time Status Admin Acetaminophen 650 MG Q4P PRN 02/18 1630 AC 02/22 PO 1505 Ceftriaxone Sodium 1,000 MG DAILY 02/21 1014 AC 02/23 IV 0921 Chlorpromazine 25 MG ONCE ONE 02/23 1115 DC IM 02/23 1116 Chlorpromazine 25 MG ONCE ONE 02/23 1100 CAN IM 02/23 1115 Chlorpromazine 50 MG Q4 PRN 02/23 1015 CAN IV Fat Emulsion 500 ML Q24H 02/23 1900 AC Intravenous IV 02/24 1859 Fat Emulsion 500 ML Q24H 02/22 1900 AC 02/22 Intravenous IV 02/23 Fat Emulsion 250 ML ONCE ONE 02/21 1900 DC 02/21 Intravenous IV 02/22 1859 193 Gabapentin 300 MG Q8 02/18 1400 AC 02/23 PO 044 Heparin Sodium 5,000 UNIT Q8 02/04 0600 AC 02/23 (Porcine) SC 0442 Hydromorphone HCl 2 MG Q3P PRN 02/17 1800 AC 02/23 IV 0442 Metoclopramide HCl 10 MG Q8 02/23 1400 AC IV Nicotine 7 MG DAILY 02/04 0900 AC 02/23 TOP 0921 Omeprazole 40 MG DAILY AC 02/07 0700 AC 02/23 PO 0442 Ondansetron HCl 4 MG Q6P PRN 02/04 0245 AC 02/23 IV 0435 Oxycodone HCl 10 MG Q4P PRN 02/23 1100 AC 02/23 PO 1126 Oxycodone HCl 10 MG Q4P PRN 02/10 0315 DC 02/23 PO 0604 Total Parenteral 1 UNIT ONE 02/23 1900 AC Nutrition IV 02/24 1859 Total Parenteral 1 UNIT ONE 02/22 190 AC 02/22 Nutrition IV 02/23 Total Parenteral 1 UNIT ONE 02/21 190 DC 02/21 Nutrition IV 02/22 Last 24 Hrs of Lab/Steven Results Last 24 Hrs of Labs/Mics: Laboratory Tests 02/23/18 0610: Anion Gap 6, Estimated GFR > 60, BUN/Creatinine Ratio 18.3, Total Bilirubin 0.8, Direct Bilirubin 0.6 H, AST 102 H, ALT 84 H, Alkaline Phosphatase 95, Total Protein 5.6 L, Albumin 2.3 L, CBC w Diff NO MAN DIFF REQ, RBC 3.45 L, MCV 89.5, MCH 30.4, MCHC 34.0, RDW 14.7 H, MPV 8.1, Gran % 80.3 H, Lymphocytes % 5.5 L, Monocytes % 13.3 H, Eosinophils % 0.7, Basophils % 0.2, Absolute Granulocytes 6.7 H, Absolute Lymphocytes 0.5 L, Absolute Monocytes 1.1 H, Absolute Eosinophils 0.1, Absolute Basophils 0 Assessment/Plan Assessment: Mr. Bynum is a 52yo M w/ PMH of diverticulitis, kidney stones s/p lithotripsy, gallstones s/p cholecystectomy, s/p Pippa procedure w/ temporary colostomy followed by revision in 2016, s/p hernia repair, reversible ischemia on nuclear stress test status post cardiac cath recently in 2014 presented to [facility] w/ N/V/D/severe intermittent ab pain since 1pm of 02/03/2018, endorseed loose BM, w/ intermittent non-bloody vomiting, mostly foods. Now with pseudocyst and evidence for superimposed infection. This represents a complex problem which will eventually require surgical intervention 02/23: Patient on IV antibiotiics Ceftriaxone given panceratic fluid growing gram negative pathology with sensitivites to follow. Monitoring for fever/ leukocytosis/deteriorating clinical picture for now. Patients course complicated with pseudocyst with gastroenterology and surgery on board. Currently NPO with TPN day 3 with intralipids and bowel rest. Attempting to wait 6-8 weeks untill wall of pseudocyst matures before surgical intervention although patient may require transfer to [facility] for inpatient EUS if course deteroirates. 02/23: Currently Afebrile with normal vital signs. AST 102, ALT 84, Direct bilirubin 0.6 with total at 0.8. Previous AST on 02/18 was 21 and ALT was 38. Elevated. Complaining of severe hiccups. 1X IM thorazine 25mg given with a Reglan regimen for his discomfort 10mg q8IV. Problem list 1 smoldering pancreatitis. Etiology as of now unclear. Etoh and choledocoltihiasis -Ruled out (negative MRCP). 2 hypokalemia-resolved 3 nicotine dependence 4 diarrhea with evidence of colitis on ct abd PLAN: * Aspiration fluid in RUQ growing: Enterobacter Cloace with sensitivies reported * Ceftriaxone 1g/daily for now; monitor for fevers/leukocytosis * Reordered TPN Day 3 via PICC line; monitor triglycerides/electrolytes while on TPN * General Surgery on board following patient: plan for current treatment until next week at which time CT should be repeated on 02/26/18 * GI Dr. Truong on board: NPO (TPN w/ intralipids), bowel rest; serial CBC, LEFTS, lytes, BUN/Cr, GFR * *If patient deteriorates consider transfer to [facility] for inpatient E[facility] * Attempt to wait 6-8 weeks until wall of pseudocyst matures prior to surgical intervention Diet: NPO - TPN with intralipids; bowel rest DVT PPx: Heparin SC Code Status: Full Code Problem List: 1. Abdominal pain 2. Pancreatitis Pain Ratin Pain Location: epigastric / right abdominal pain Pain Goal: Pain 4 or less Pain Plan: as per pain pathway Tomorrow's Labs & Rationales: cbc bep
--- NOTE | 2018-02-23 13:27 | PN- Att Addend ---
Attending Addendum Attending Brief Note Patient states his pain is a little less. He is bothered with severe hiccups, medication was ordered for this. His vital signs are stable no fever No other changes on physical. White count is 8400, hemoglobin 10.5 hematocrit 30.9, potassium 3.7. AST 102 ALT 84 albumin low at 2.3, the hyperalimentation continues. Intake & Output 02/23 1600 02/23 0400 02/22 1600 02/22 0400 02/21 1600 02/21 0400 Intake Total 643.2 1126.4 868.0 783.9 Output Total 200 800 850 550 600 360 Balance -200 -156.8 276.4 -550 268.0 423.9 Intake, IV 83.2 100 640 Intake, Lipid 166.4 100.4 18.9 Intake, Oral 60 60 0 0 Intake, 500 900 667.6 125 TPN/PPN Number 0 1 0 Bowel Movements Output, Urine 200 800 850 550 600 360 Patient 208 lb 207 lb 214 lb Weight Weight Bed scale Bed scale Measurement Method Current Medications Sig/Oz Start time Last Medication Dose Route Stop Time Status Admin Acetaminophen 650 MG Q4P PRN 02/18 1630 AC 02/22 PO 1505 Ceftriaxone Sodium 1,000 MG DAILY 02/21 1014 AC 02/23 IV 0921 Chlorpromazine 25 MG ONCE ONE 02/23 1115 DC 02/23 IM 02/23 1116 1217 Chlorpromazine 25 MG ONCE ONE 02/23 1100 CAN IM 02/23 1115 Chlorpromazine 50 MG Q4 PRN 02/23 1015 CAN IV Fat Emulsion 500 ML Q24H 02/23 1900 AC Intravenous IV 02/24 1859 Fat Emulsion 500 ML Q24H 02/22 1900 AC 02/22 Intravenous IV 02/23 1859 1932 Fat Emulsion 250 ML ONCE ONE 02/21 1900 DC 02/21 Intravenous IV 02/22 1859 1931 Gabapentin 300 MG Q8 02/18 1400 AC 02/23 PO 1216 Heparin Sodium 5,000 UNIT Q8 02/04 0600 AC 02/23 (Porcine) SC 1216 Hydromorphone HCl 2 MG Q3P PRN 02/17 1800 AC 02/23 IV 0442 Metoclopramide HCl 10 MG Q8 02/23 1400 AC 02/23 IV 1217 Nicotine 7 MG DAILY 02/04 0900 AC 02/23 TOP 0921 Omeprazole 40 MG DAILY 02/07 0700 02/23 PO 0442 Ondansetron HCl 4 MG Q6P PRN 02/04 0245 02/23 IV 0435 Oxycodone HCl 10 MG Q4P PRN 02/23 1100 02/23 PO 1126 Oxycodone HCl 10 MG Q4P PRN 02/10 0315 IN 02/23 PO 0604 Total Parenteral 1 UNIT ONE 02/23 190 Nutrition IV 02/24 185 Total Parenteral 1 UNIT ONE 02/22 190 AC 02/22 Nutrition IV 02/23 185 193 Total Parenteral 1 UNIT ONE 02/21 1900 IN 02/21 Nutrition IV 02/22 Laboratory Tests 02/23/18 0610: Anion Gap 6, Estimated GFR > 60, BUN/Creatinine Ratio 18.3, Total Bilirubin 0.8, Direct Bilirubin 0.6 H, AST 102 H, ALT 84 H, Alkaline Phosphatase 95, Total Protein 5.6 L, Albumin 2.3 L, CBC w Diff NO MAN DIFF REQ, RBC 3.45 L, MCV 89.5, MCH 30.4, MCHC 34.0, RDW 14.7 H, MPV 8.1, Gran % 80.3 H, Lymphocytes % 5.5 L, Monocytes % 13.3 H, Eosinophils % 0.7, Basophils % 0.2, Absolute Granulocytes 6.7 H, Absolute Lymphocytes 0.5 L, Absolute Monocytes 1.1 H, Absolute Eosinophils 0.1, Absolute Basophils 0 02/22/18 0630: Anion Gap 5, Estimated GFR > 60, BUN/Creatinine Ratio 17.1, Magnesium 2.0, Triglycerides 81, CBC w Diff NO MAN DIFF REQ, RBC 3.42 L, MCV 89.5, MCH 30.1, MCHC 33.6, RDW 14.1, MPV 8.0, Gran % 83.4 H, Lymphocytes % 6.1 L, Monocytes % 10.1 H, Eosinophils % 0.3, Basophils % 0.1, Absolute Granulocytes 7.5 H, Absolute Lymphocytes 0.5 L, Absolute Monocytes 0.9 H, Absolute Eosinophils 0, Absolute Basophils 0 02/21/18 0600: Anion Gap 7, Estimated GFR > 60, BUN/Creatinine Ratio 18.6, Phosphorus 3.1, Magnesium 1.9, CBC w Diff NO MAN DIFF REQ, RBC 3.49 L, MCV 90.2, MCH 30.5, MCHC 33.8, RDW 13.8, MPV 7.9, Gran % 89.3 H, Lymphocytes % 4.3 L, Monocytes % 6.2, Eosinophils % 0.1, Basophils % 0.1, Absolute Granulocytes 8.5 H, Absolute Lymphocytes 0.4 L, Absolute Monocytes 0.6, Absolute Eosinophils 0, Absolute Basophils 0 Vital Signs Date Time Temp Pulse Resp B/P B/P Pulse O2 O2 Flow FiO2 Mean Ox Delivery Rate 02/23 0632 99.1 74 20 142/82 94 02/22 2144 98.1 69 18 120/80 96 Room Air 02/22 1452 98.7 82 18 131/60 96 Room Air
[2018-02-23 14:38] VITALS: BP 129/81
--- NOTE | 2018-02-23 17:22 | PN- Gastroenterology ---
Assessment/Plan GI Assessment/Recommendations: (*Please refer to my initial inpt GI consultation of 02/04/18. I assumed the weekly inpatient GI service from Dr. Jenae Ardon on 02/21/18. Extensive records reviewed). 52 y/o male, HTN, non-DM, renal stones post ESWL, smoker, hx GERD, anxiety, 02/27: CCKY for biliary colic (path: chronic cholecystitis, cholesterolosis, & cholelithiasis), hx diverticulosis coli, post 09/05/15: Pippa's procedure for sigmoid diverticulitis with phlegmon, f/b 12/27/15: reversal of colostomy, KRISTIN, reinforcement of midline fascia with mesh. This was followed by 08/14/16: open mesh repair of ventral incisional hernia, along with bilateral advancement rectus muscular fascial flap reconstruction, all per Dr. Cordon. He also has hx gout & had numerous orthopedic procedures, including right rotator cuff surgery, & left elbow ulnar surgery. *He had a chronic pain syndrome in the right flank. 03/15/06: EGD/colonoscopy (purged) gastric bxs unremarkable, H. pylori negative; bxs GEJ- benign inflammation, without Collier's esophagus. 09/06/14: Combined baseline upper endoscopy to the third portion of the duodenum with biopsies, plus follow up colonoscopy to the terminal ileum with biopsies (*done for GERD & chronic vague right-sided abdominal sx, requiring multiple ER visits & OV with the GI MEDICAL COMMUNICATION SPECIALIST)- ? mild gastroparesis with bile cleared from proximal stomach, random bxs D2/D3- neg, random bx antrum- mild CAG, HP-neg, bx inflamed cardia- mild CFG , HP-neg, 2 cm HH, random bxs distal esophagus at 42 cm/Z line & at 39 cm- nl esophageal mucosa, neg EOE; mod L tics, focal sigmoid erythema from 25-30 cm in midst of tics-colonic mucosa with focal hyperplastic change & hemorrhage, random bxs of TI, right colon, left colon, & rectum- all neg. (The pt was rxd Nexium 40 mg daily then) He was due for f/u surveillance colonoscopy x 10 yrs (avg risk) = 08/2024. He was told if inc sx, to consider GES (which he never had), TFT with TSH, HgbA1C, celiac panel, etc. He was then seen in inpatient GI consultation 04/22/[address] Sprague for sigmoid diverticulitis, txd with antibiotics. He ultimately then had 09/05/15: Pippa 's procedure, followed by 12/27/15: reversal of colostomy/KRISTIN & 08/14/16: open mesh repair of ventral incisional hernia, as above. He was most recently seen in inpatient GI consultation by Dr. Jenae Ardon , for chronic progressive vague right-sided abdominal/right flank pain, which was somewhat positional in nature. This was felt to have a neuropathic quality. History, exam, and imaging did not show any acute intra-abdominal or retroperitoneal process. He had a minimally elevated lipase then which was felt to be nonspecific. There was no clinical evidence of pancreatitis. A radicular process vs. zoster was considered, & he was rxd ANGE & Valacyclovir. A Lyme titer then was negative, although he did get a 10 day course of Doxycyline. Since 1 PM on 02/03/18, the patient noted nausea, vomiting, diarrhea, and intermittent, severe intense, abdominal pain, described as "someone beating the hell out of my stomach". It was localized to the periumbilical region, radiating suprapubically and epigastrically. Initially, the pain was "3 out of 10", then became "10 out of 10" and constant in nature. He took [place], without relief. He arrived at the [facility] 02/04/18 at 12:14 a.m. for the above, at which point, he was HTN, with BP 218/97, P 57, R 22, T 97.5, O2 sat RA 100%. He was initially in tears from the pain. He was rxd IV Zofran, MS, IV NS switched to IV LR He had a loose bowel movement 1 day [employer], none since, with minimal constipation, but no obstipation,watery diarrhea, or tenesmus. The vomitus initially showed partially digested food, but then became clear, non-bloody, non-bilious. He had chronic GERD, for which he took Tums prn. He was not on longstanding PPI. He denied any odynophagia or dysphagia. He denied using any NSAIDS, thiazides, or Sulfa meds. He denied any hematemesis, melena, or BRBPR. He denied any EtOH, transfusions, IVDA, HIV, or hx viral hepatitis. He denied any definite jaundice, dark urine, light stools, pruritus, or confusion. He denied any fevers, chills, night sweats, CP, SOB, symptoms of UTI or URI. There was no abdominal trauma. His appetite was fair, since his multiple abdominal surgeries a few years ago. He denied any early satiety. His weight had been stable for the past 2 years, but he stated that he was previously obese & lost > 100 lbs a few years ago, in the midst of tx of his divericulitis. There is no FHx GI Ca, GI disease, inherited pancreatitis, or inherited liver disease. He was found to have newly elevated LFTs & elevated lipase (*see labs). 11/24/17: minimal lipase 401, with nl LFTs. 02/04/18: 0116- Admission labs-WBC 11.5 (92% gran/11 gran Ab), H/H 18/51.3, MCV 90, RDW 13.9, PLT 137, glucose 125, BUN/CR 16/1.1, GFR > 60, Na 141, K 4.0, HCO3 23, AG 14, Ca 10.1, amylase 3643, lipase > 10K, albumin 4.7, globulin 3.9, Tbil 2.3, DBil 1.4, alk phos 196, AST 266, ALT 219, troponin < 0.01; (no U/A or PT/ PTT). 02/04/18: 0246- *TG 101, [EtOH] < 10. 02/04/18: EKG- SB @ 57, nl axis, IN .20, no ischemic change. 02/04/18: CT ABDOMEN AND PELVIS WITHOUT IV CONTRAST (*per Krishna CARRENO, limited study w/o IV cont)- Prominent inflammatory changes surrounding the pancreas with edematous appearance of the pancreas. This is suggestive of acute pancreatitis. No PD dilitation. Post CCKY with postop CBD 1.3 cm (chronic), no filling defect. Stable ectatic appearance of the left common iliac artery. Normal AP. No hernia. DJD. 02/04/18: US ABDOMEN COMPLETE- 1. Edematous pancreas with peripancreatic fluid, consistent with acute pancreatitis. 2. The pancreatic head and portions of the tail are not visualized. 3. Intra and extrahepatic ductal dilatation is seen. Common bile duct measuring up to 1 cm. Findings may at least in part be related to the patient's postcholecystectomy state with similar appearance seen on older CT scan from 07/11/2017, at which time, no evidence of acute pancreatitis was seen. In the visualized portions of the common bile duct on today's exam, no filling defect is seen. Distal most CBD is, however, not visualized. Close clinical correlation is requested. 4. Status post cholecystectomy. *Unfortunately, no MRCP available at [place] on Tuesdays, prohibiting this on . *The patient was initially most likely felt to have gallstone pancreatitis. His TG were normal. He did bump up his LFTs. *He had no signs or symptoms of cholangitis. The admission CT was somewhat limited without IV contrast. Even so, it showed pancreatic inflammation. Subsequent admission ultrasound showed chronic mild nonspecific dilated CBD & mildly dilated IHD, but apparently, these findings are chronic, post CCKY. However, the elevated LFTs are new. Unfortunately, MRCP was not available at [place] on Tuesdays, & therefore, could not be obtained on 02/04/18. He appeared somewhat hemoconcentrated on admission, as did his HCT 51.3. *He had 1 grave sign by Kala criteria on admission, namely elevated AST, although no LDH was sent. *He had 0 grave signs by BiSAP criteria on admission, but no CXR was obtained to rule out pleural effusions. ( Limited views of the lung bases on CT AP were clear). He denied EtOH. He is a 30 pk yr cigarette smoker, which is a risk factor for pancreatitis. Surprisingly, 02/05/18: MRCP was negative for choledocholithiasis. The patient has had numerous imaging studies since admission, *including aspirate of right subhepatic fluid collection, performed on 02/20/18, with right sided PICC placed that day, as well. 02/20/18: BF amylase 42, BF cell count could not be done by lab, g stain w/o WBC , with *BF C&S- mod GNR. *As of 02/21/18, the pt was hemodynamically stable, & afebrile, with O2 sat RA 94%. His leukocytosis was improved. There was no hemoconcentration by labs. He was malnourished with 02/20/18: PAB < 3, TG 79 (*TPN rxd). LFTs had normalized except for decreased synthetic function. He still had some abdominal pain, mostly in the RLQ & right flank. He also noted nausea and mild vomiting. He no longer had fevers or chills. He was no longer yellow. *The patient was put on IV Ceftriaxone 02/21/18, for acute pancreatitis with pseudocyst and infected necrosis. *Plans are to try to wait 6-8 weeks until the wall of the pseudocyst matures, prior to considering surgical intervention. * Another option could be eventual drainage via EUS, and will discuss with surgery , although the pt did not appear to be desirous of going to [facility], ? "because of transportation issues, which would arise when he was D/C from there". 02/18/18: nl LFTs xc alb 2.6, glob 2.8 02/20/18: PAB < 3.0 02/21/18: BF C&S- E. Cloacae (*S-Fortaz/Ceftriaxone/Cipro/Gent/Bactrim). 02/22/18: WBC 8.9, H/H 10.3/30.6, PLT 351, BUN/Cr 12/0.7, GFR > 60, Na 130, K 3.8, HCO3 29, AG 5, Mg 2.0, TG 81 *As of 02/22/18, the patient was hemodynamically stable, with Tm 99.5 (98.7), with O2 sat RA 96%. The patient had a panic attack earlier today with anxiety. He remained NPO on TPN. He had some mild nausea with Dilaudid. He was having loose BMs. His right-sided abdominal pain was slowly improving, as well as his leukocytosis. He denied any jaundice, vomiting, or chills. He also noted hiccups for the past few days. He denied any CP, SOB, or pleuritic pain. 02/20: CXR-small pleural effusions and bibasilar atelectasis. *Overall, he appeared to be slowly improving. 02/23/18: 0610- WBC 8.4, H/H 10.5/30.9, MCV 89.5, PLT 346, BUN/Cr 11/0.6, GFR > 60, Na 131, K 3.7, HCO3 29, AG 6, albumin 2.3, globulin 3.3, TBil 0.8/DBil 0.6, alk phos 95, AST 102, ALT 84 (*on TPN) *As of 02/23/18, the patient remained hemodynamically stable, with Tm 99.4 (on Ceftriaxone), & O2 sat RA 96%. + 206.4 mL, w/o hemoconcentration by labs. Overall, he continued to slowly improve. His RLQ pain was better, as was his nausea. He was ambulating. He denied any chills, jaundice, vomiting, CP, or SOB. He was ambulating. He remained NPO on TPN with intralipids. He was given Chlorpromazine 25 mg IM x 1 earlier today for his hiccoughs, which helped. A/P: 52 y/o male, acute pancreatitis with infected necrosis, pseudocyst, abdominal pain, hiccoughs (the latter probably from some diaphragmatic irritation), elevated LFTs (*on TPN), malnutrition, anemia, post 01/30/06: CCKY, hx 12/27/15: colostomy reversal/KRISTIN for sigmoid diverticulitis with phlegmon. *SUGGEST: NPO. TPN with intralipids. Bowel rest. Strict I/O's. Serial CBC, *Serial LFTs (* on TPN, which often gives more of a cholestatic picture). Serial lytes, CBC, BUN /Cr, GFR. *Watch for hemoconcentration (i.e.- rising Hgb or BUN) despite IVF/TPN , which would be a poor prognostic sign. IV Zofran. Analgesics. ANGE. IV Protonix 40 mg daily, for GERD. D/C cigarettes. DVT prophylaxis. *Continue IV Ceftriaxone. *Follow-up with surgery. Continue narcotic analgesics and antiemetics. If hiccoughs worsen, consider repeat CXR & *trial of Chlorpromazine 25-50 mg po TID). If patient deteriorates, consider transfer to [facility] for inpatient EUS. For tentative repeat CT with pancreatic protocol on , per surgery. *Try to wait 6-8 weeks until the wall of the pseudocyst matures, prior to considering surgical intervention. *Another option could be eventual drainage via EUS, and *will discuss with surgery. (As an aside, he is due for f/u surveillance colonoscopy in 08/2024). Further GI recommendations to follow, depending on clinical course. Problem List: 1. Acute pancreatitis with infected necrosis 2. Pseudocyst of pancreas 3. Abdominal pain 4. Hiccoughs 5. Elevated LFTs 6. Malnutrition 7. History of cholecystectomy 8. History of colostomy reversal 9. Diverticulosis of colon 10. Anemia Subjective Subjective: 02/23/18: 0610- WBC 8.4, H/H 10.5/30.9, MCV 89.5, PLT 346, BUN/Cr 11/0.6, GFR > 60, Na 131, K 3.7, HCO3 29, AG 6, albumin 2.3, globulin 3.3, TBil 0.8/DBil 0.6, alk phos 95, AST 102, ALT 84 (*on TPN) *As of 02/23/18, the patient remained hemodynamically stable, with Tm 99.4 (on Ceftriaxone), & O2 sat RA 96%. + 206.4 mL, w/o hemoconcentration by labs. Overall, he continued to slowly improve. His RLQ pain was better, as was his nausea. He was ambulating. He denied any chills, jaundice, vomiting, CP, or SOB. He was ambulating. He remained NPO on TPN with intralipids. He was given Chlorpromazine 25 mg IM x 1 earlier today for his hiccoughs, which helped. Review of Systems: Full 14 point ROS otherwise noncontributory, & as above. Review of Systems Constitutional: Reports: weight loss as inpt. Denies: chills, diaphoresis, fever, malaise, weakness EENTM: Denies: blurred vision, double vision, visual changes, eye pain, eye drainage, eye tearing, icterus, ear discharge, ear pain, ear redness, hearing changes, nasal congestion, epistaxis, nasal pain, throat pain, throat swelling, mouth pain, tooth pain. Cardiovascular: Denies: chest pain, edema, orthopena, palpitations, peripheral edema, syncope. Respiratory: Denies: cough, hemoptysis, orthopnea, short of breath, sputum production, stridor, wheezing. GI: Reports: abdominal pain-> slowly improving; nausea-> mild. Occ hiccoughs. Denies: bloating, vomiting, constipation, diarrhea, distention, bowel incontinence, melena, bloody stool, changes in stool, steatorrhea. Genitourinary: Denies: discharge, dysuria, frequency, hematuria, hesitation, nocturia, pain, urgency. Musculoskeletal: Denies: back pain, gout, joint pain, joint swelling, muscle pain, muscle stiffness, neck pain. Skin: Denies: cysts, change in skin color, change in hair/nails, dryness, erythema, jaundice, lesions, lymphangitis, lumps, moles, rash. Neurological/Psychological: Reports: anxiety, emotional problems. Denies: ataxia, cognitive dysfunction, confusion, depressed, dementia, headache, numbness, paresthesia, pre-existing deficit, petit mal seizures, tingling, tremors, tonic-clonic seizures, unable to move lower ext, unable to move upper ext, weakness, other. Hematologic/Endocrine: Denies: bruising, bleeding, polyuria, polydipsia. Immunologic/Allergic: Denies: splenectomy, HIV/AIDS, lymphadenopathy. All Other Systems: Reviewed and Negative Objective Vital Signs and I&Os Vital Signs Date Time Temp Pulse Resp B/P B/P Pulse O2 O2 Flow FiO2 Mean Ox Delivery Rate 02/23 1438 99.4 75 16 129/81 96 Room Air 02/23 0632 99.1 74 20 142/82 94 02/22 2144 98.1 69 18 120/80 96 Room Air Intake & Output 02/23 1600 02/23 0400 02/22 1600 02/22 0400 02/21 1600 02/21 0400 Intake Total 423.2 643.2 1126.4 868.0 783.9 Output Total 500 800 850 550 600 360 Balance -76.8 -156.8 276.4 -550 268.0 423.9 Intake, IV 83.2 100 640 Intake, Lipid 83.2 166.4 100.4 18.9 Intake, Oral 60 60 0 0 Intake, 340 500 900 667.6 125 TPN/PPN Number 0 1 0 Bowel Movements Output, Urine 500 800 850 550 600 360 Patient 208 lb 207 lb 214 lb Weight Weight Bed scale Bed scale Measurement Method Physical Exam: Well-developed, well-nourished male, in mild distress, non-toxic appearing. Sclera anicteric. Conjunctiva pink. Oropharynx clear. No oral thrush. No aphthous ulcers. There is no adenopathy, thyromegaly, or JVD. No peripheral stigmata of inflammatory bowel disease or chronic liver disease on exam. No spiders on the anterior chest wall. No gynecomastia. No CVA tenderness. No spine tenderness. Lungs: clear to A&P, with slight decreased BS at bases B/L. No wheezing, rales, or rhonchi. Heart exam: regular rate rhythm, S1 and S2, without any murmur. Abdominal exam: normal bowel sounds, soft belly, mildly distended, *much improved RLQ tenderness, without guarding or rebound. No mass. No organomegaly. No definite fluid shift. No epigastric bruit. No pulsatile mass. Multiple scars. Digital rectal exam: previously deferred by patient. Extremities : without C, C, or E. No rash. Clean site at [facility]. Mild DJD. No palmar erythema. No Dupuytren's contractures. No palpable cords. Distal pulses 2+ bilaterally. DTRs 2+ bilaterally. Right handed. CN II-XII prev intact. Motor 5 /5 B/L. Alert and oriented x 3. No tremor. No asterixis. Current Medications: Current Medications Sig/Oz Start time Last Medication Dose Route Stop Time Status Admin Acetaminophen 650 MG Q4P PRN 02/18 1630 AC 02/22 PO 1505 Ceftriaxone Sodium 1,000 MG DAILY 02/21 1014 AC 02/23 IV 0921 Chlorpromazine 25 MG ONCE ONE 02/23 1115 DC 02/23 IM 02/23 1116 1217 Chlorpromazine 25 MG ONCE ONE 02/23 1100 CAN IM 02/23 1115 Chlorpromazine 50 MG Q4 PRN 02/23 1015 CAN IV Fat Emulsion 500 ML Q24H 02/23 1900 AC Intravenous IV 02/24 1859 Fat Emulsion 500 ML Q24H 02/22 1900 AC 02/22 Intravenous IV 02/23 185 1932 Fat Emulsion 250 ML ONCE ONE 02/21 1900 DC 02/21 Intravenous IV 02/22 1859 193 Gabapentin 300 MG Q8 02/18 1400 AC 02/23 PO 1216 Heparin Sodium 5,000 UNIT Q8 02/04 0600 AC 02/23 (Porcine) SC 1216 Hydromorphone HCl 2 MG Q3P PRN 02/17 1800 AC 02/23 IV 0442 Metoclopramide HCl 10 MG Q8 02/23 1400 AC 02/23 IV 1217 Nicotine 7 MG DAILY 02/04 09 AC 02/23 TOP 0921 Omeprazole 40 MG DAILY AC 02/07 0700 AC 02/23 PO 0442 Ondansetron HCl 4 MG Q6P PRN 02/04 0245 AC 02/23 IV 0435 Oxycodone HCl 10 MG Q4P PRN 02/23 1100 AC 02/23 PO 1738 Oxycodone HCl 10 MG Q4P PRN 02/10 0315 DC 02/23 PO 0604 Total Parenteral 1 UNIT ONE 02/23 1900 AC Nutrition IV 02/24 1859 Total Parenteral 1 UNIT ONE 02/22 190 AC 02/22 Nutrition IV 02/23 1859 193 Total Parenteral 1 UNIT ONE 02/21 190 DC 02/21 Nutrition IV 02/22 Results Pertinent Lab Results: Laboratory Tests 02/23 02/22 0610 0630 Chemistry Sodium (137 - 145 mmol/L) 131 L 130 L Potassium (3.5 - 5.1 mmol/L) 3.7 3.8 Chloride (98 - 107 mmol/L) 95 L 96 L Carbon Dioxide (22 - 30 mmol/L) 29 29 Anion Gap (5 - 16) 6 5 BUN (9 - 20 mg/dL) 11 12 Creatinine (0.7 - 1.2 mg/dL) 0.6 L 0.7 Estimated GFR (>60 ml/min) > 60 > 60 BUN/Creatinine Ratio (7 - 25 %) 18.3 17.1 Magnesium (1.6 - 2.3 mg/dL) 2.0 Total Bilirubin (0.2 - 1.3 mg/dL) 0.8 Direct Bilirubin (< 0.4 mg/dL) 0.6 H AST (17 - 59 U/L) 102 H ALT (21 - 72 U/L) 84 H Alkaline Phosphatase (< 127 U/L) 95 Total Protein (6.3 - 8.2 g/dL) 5.6 L Albumin (3.5 - 5.0 g/dL) 2.3 L Triglycerides (<150 mg/dL) 81 Hematology CBC w Diff NO MAN DIFF REQ NO MAN DIFF REQ WBC (4.8 - 10.8 /CUMM) 8.4 8.9 RBC (4.70 - 6.10 /CUMM) 3.45 L 3.42 L Hgb (14.0 - 18.0 G/DL) 10.5 L 10.3 L Hct (42 - 52 %) 30.9 L 30.6 L MCV (80.0 - 94.0 FL) 89.5 89.5 MCH (27.0 - 31.0 PG) 30.4 30.1 MCHC (33.0 - 37.0 G/DL) 34.0 33.6 RDW (11.5 - 14.5 %) 14.7 H 14.1 Plt Count (130 - 400 /CUMM) 346 351 MPV (7.4 - 10.4 FL) 8.1 8.0 Gran % (42.2 - 75.2 %) 80.3 H 83.4 H Lymphocytes % (20.5 - 51.1 %) 5.5 L 6.1 L Monocytes % (1.7 - 9.3 %) 13.3 H 10.1 H Eosinophils % (0 - 5 %) 0.7 0.3 Basophils % (0.0 - 2.0 %) 0.2 0.1 Absolute Granulocytes (1.4 - 6.5 /CUMM) 6.7 H 7.5 H Absolute Lymphocytes (1.2 - 3.4 /CUMM) 0.5 L 0.5 L Absolute Monocytes (0.10 - 0.60 /CUMM) 1.1 H 0.9 H Absolute Eosinophils (0.0 - 0.7 /CUMM) 0.1 0 Absolute Basophils (0.0 - 0.2 /CUMM) 0 0 08/31 0600 Chemistry Sodium (137 - 145 mmol/L) 130 L Potassium (3.5 - 5.1 mmol/L) 4.0 Chloride (98 - 107 mmol/L) 94 L Carbon Dioxide (22 - 30 mmol/L) 29 Anion Gap (5 - 16) 7 BUN (9 - 20 mg/dL) 13 Creatinine (0.7 - 1.2 mg/dL) 0.7 Estimated GFR (>60 ml/min) > 60 BUN/Creatinine Ratio (7 - 25 %) 18.6 Phosphorus (2.5 - 4.5 mg/dL) 3.1 Magnesium (1.6 - 2.3 mg/dL) 1.9 Hematology CBC w Diff NO MAN DIFF REQ WBC (4.8 - 10.8 /CUMM) 9.6 RBC (4.70 - 6.10 /CUMM) 3.49 L Hgb (14.0 - 18.0 G/DL) 10.6 L Hct (42 - 52 %) 31.5 L MCV (80.0 - 94.0 FL) 90.2 MCH (27.0 - 31.0 PG) 30.5 MCHC (33.0 - 37.0 G/DL) 33.8 RDW (11.5 - 14.5 %) 13.8 Plt Count (130 - 400 /CUMM) 331 MPV (7.4 - 10.4 FL) 7.9 Gran % (42.2 - 75.2 %) 89.3 H Lymphocytes % (20.5 - 51.1 %) 4.3 L Monocytes % (1.7 - 9.3 %) 6.2 Eosinophils % (0 - 5 %) 0.1 Basophils % (0.0 - 2.0 %) 0.1 Absolute Granulocytes (1.4 - 6.5 /CUMM) 8.5 H Absolute Lymphocytes (1.2 - 3.4 /CUMM) 0.4 L Absolute Monocytes (0.10 - 0.60 /CUMM) 0.6 Absolute Eosinophils (0.0 - 0.7 /CUMM) 0 Absolute Basophils (0.0 - 0.2 /CUMM) 0 Imaging/Other Studies: 02/04/18: EKG- SB @ 57, nl axis, IN .20, no ischemic change. 02/04/18: CT ABDOMEN AND PELVIS WITHOUT IV CONTRAST (*per Krishna CARRENO, limited study w/o IV cont)- Prominent inflammatory changes surrounding the pancreas with edematous appearance of the pancreas. This is suggestive of acute pancreatitis. No PD dilitation. Post CCKY with postop CBD 1.3 cm (chronic), no filling defect. Stable ectatic appearance of the left common iliac artery. Normal AP. No hernia. DJD. 02/04/18: US ABDOMEN COMPLETE- 1. Edematous pancreas with peripancreatic fluid, consistent with acute pancreatitis. 2. The pancreatic head and portions of the tail are not visualized. 3. Intra and extrahepatic ductal dilatation is seen. Common bile duct measuring up to 1 cm. Findings may at least in part be related to the patient's postcholecystectomy state with similar appearance seen on older CT scan from 07/11/2017, at which time, no evidence of acute pancreatitis was seen. In the visualized portions of the common bile duct on today's exam, no filling defect is seen. Distal most CBD is, however, not visualized. Close clinical correlation is requested. 4. Status post cholecystectomy. *Unfortunately, no MRCP available at [place] on Tuesdays, prohibiting this on . 02/05/18: XRY-CHEST XRAY, TWO VIEWS- No acute cardiopulmonary process. 02/05/18: MR ABDOMEN WITHOUT CONTRAST/MRCP- 1. Acute interstitial pancreatitis is seen with pancreatic parenchymal edema and peripancreatic soft tissue edema and stranding. Associated circumferential wall thickening in the duodenum and proximal jejunum is seen, consistent with sympathetic changes to the pancreatic inflammation. 2. No evidence of variant ductal anatomy. No definite pancreatic head mass seen on noncontrast study. 3. Mild intrahepatic ductal dilatation and moderate extrahepatic ductal dilatation to 1 cm is seen. There is smooth tapering of the common bile duct to 0.4 cm in the preampullary region with no evidence of choledocholithiasis. Findings may be related to the patient's postcholecystectomy state. 4. A few scattered bilateral renal cysts are incidentally seen. 02/09/18: CT ABD & PELVIS W ORAL & IV CONT- Interval increase in pancreatic edema with increasing abdominal fluid likely community service representative of progressing pancreatitis. Right greater than left bilateral pleural effusions with associated airspace disease. 02/13/18: XRY-CHEST XRAY, TWO VIEWS- Bibasilar subsegmental atelectasis with small right more than left pleural effusions. No dense consolidation. 02/14/18: XRY-PORTABLE CHEST XRAY- Bilateral pleural effusions with bibasilar airspace opacity, consolidation atelectasis. These basilar densities are greater at the right lung base than the left. 02/15/18: EEH-JRLBONT-AFROSLSF VIEWS- No evidence of free air or air-fluid levels to suggest any perforation or obstruction. No organomegaly. 02/15/18: CT ABD & PELVIS W IV CONTRAST- 1. Similar appearance of the pancreas with diffuse edema without definite areas of necrosis. There are acute peripancreatic fluid collections seen, possibly decreasing since the prior study as detailed above. There is slightly increased organization with thin enhancing mascorro. 2. Right colonic wall thickening and submucosal fat proliferation, new since 11/22/2017. Whether this is representing acute colitis versus reaction to the closely adjacent fluid collections and pancreatitis is unclear. Clinical correlation requested. 3. Other chronic, nonacute findings as above. 02/18/18: XRY-CHEST XRAY, TWO VIEWS- Stable bibasilar airspace disease and small pleural effusions. : CT ABDOMEN WITHOUT AND WITH CONTRAST Unchanged inflammatory process involving the pancreas with peripancreatic fluid collections with one more organized discrete collection on the right abdomen just beneath the liver. *This is the collection for which a request has been made to aspirate tomorrow. The associated right colonic wall thickening and inflammatory changes remain present as well. 02/20/18: *ULTRASOUND-GUIDED ASPIRATION OF A PANCREATIC PSEUDOCYST- Diagnostic aspiration 18 cc light olivo, cloudy fluid, performed of the patient's right upper quadrant, subhepatic pseudocysts under sonographic guidance without evidence of complications. Specimens were sent to the laboratory for C&S, cell count with diff, and amylase as requested. 02/20/18: XRY-PORTABLE CHEST XRAY- (post PCC). The right arm peripherally inserted catheter is in satisfactory position. Persistent small pleural effusions and bibasilar atelectasis.
[2018-02-23 21:36] VITALS: BP 134/86
[2018-02-24 07:31] VITALS: BP 113/69
--- NOTE | 2018-02-24 07:43 | PN- Housestaff ---
Subjective Follow-up For: Smoldering pancreatitis Subjective: Seen and examined at bedside. Afebrile since 02/19. Review of Systems Constitutional: Reports: see HPI. Objective Last 24 Hrs of Vital Signs/I&O Vital Signs Date Time Temp Pulse Resp B/P B/P Pulse O2 O2 Flow FiO2 Mean Ox Delivery Rate 02/25 07 98.9 75 20 110/64 97 02/24 2236 98.7 87 20 125/75 96 Room Air 02/24 1600 Room Air 02/24 1406 98.8 80 18 121/75 95 Room Air 02/24 0731 98.7 81 20 113/69 98 Intake & Output 02/25 0800 02/25 0000 02/24 1600 Intake Total 667.0 850.4 Output Total 540 875 Balance 127.0 -24.6 Intake, IV 30 Intake, Lipid 87.0 116.8 Intake, Oral 0 Intake, 550 733.6 TPN/PPN Number 1 Bowel Movements Output, Urine 540 875 Physical Exam General Appearance: Alert, Oriented X3, Cooperative Other Physical Findings: Skin: No Rashes, No Breakdown HEENT: EOMI, Mucous Membr. moist/pink Cardiovascular: Normal S1, Normal S2 Lungs: Clear to Auscultation, Normal Air Movement Abdomen: Tender to palpation; diffuse epigastric pain Neurological: Normal Speech, Strength at 5/5 X4 Ext Extremities: No Clubbing, No Cyanosis, No Edema Vascular: Normal Pulses Assessment/Plan Assessment: Mr. Bynum is a 52yo M w/ PMH of diverticulitis, kidney stones s/p lithotripsy, gallstones s/p cholecystectomy, s/p Pippa procedure w/ temporary colostomy followed by revision in 2015, s/p hernia repair, reversible ischemia on nuclear stress test status post cardiac cath recently in 2014 presented to [facility] w/ N/V/D/severe intermittent ab pain since 1pm of 02/03/2018, endorseed loose BM, w/ intermittent non-bloody vomiting, mostly foods. Problem list #1 smoldering pancreatitis. Etiology as of now unclear. Etoh and choledocoltihiasis ruled out (negative MRCP). #2 hypokalemia-resolved #3 nicotine dependence #4 diarrhea with evidence of colitis on ct abd Assesment and Plan Patient reports that his abdominal pain is much better. He remains afebrile sonce 02/19 with improving white count. The aspiration fluid at the right upper quadrant is growing Enterobacter Cloacea which is susceptible to the ceftriaxone that we started (now on day4) . He will inevitably need ex lap to assess his pancreatic pseudocysts wonce they have walled off we will reimage this coming week, he refused tranfer to [place] for EUS. He is on TPN today day 4, via PICC line. We'll carefully monitor triglycerides and electrolyte while patient is on the TPN. His hyponatremia is moderate but stable. Problem List: 1. Pancreatitis, acute 2. Pseudocyst of pancreas Pain Ratin Pain Location: right abdomen Pain Goal: Pain 4 or less Pain Plan: per pathway Tomorrow's Labs & Rationales: cbc bep mag phos trigs
--- NOTE | 2018-02-24 12:40 | PN- General Surgery ---
Subjective Subjective: c/o hiccups. abdominal pain improved. weak. nervous about ambulating alone. Objective Vital Signs and I&Os Vital Signs Date Time Temp Pulse Resp B/P B/P Pulse O2 O2 Flow FiO2 Mean Ox Delivery Rate 02/24 0731 98.7 81 20 113/69 98 02/23 2136 98.8 76 20 134/86 95 Room Air 02/23 1438 99.4 75 16 129/81 96 Room Air Intake & Output 02/24 1600 02/24 0802/24 0000 02/23 1600 02/23 0802/23 0000 Intake Total 950.4 465.0 423.2 583.2 643.2 Output Total 500 458 911 3521 500 Balance 450.4 165.0 123.2 -416.8 143.2 Intake, IV 100 30 83.2 Intake, Lipid 116.8 75.0 83.2 83.2 Intake, Oral 0 60 Intake, 733.6 360 340 500 500 TPN/PPN Number 0 Bowel Movements Output, Urine 500 683 739 3448 500 Patient 205 lb 208 lb Weight Weight Bed scale Measurement Method Physical Exam: gen; looks well. overweight. no distress. hiccuping. heent; anicteric, perrl, eomi abd; soft, minimal tenderness ruq. no mass no hernia. ext; no c/c/e. Current Medications: Current Medications Sig/Oz Start time Last Medication Dose Route Stop Time Status Admin Acetaminophen 650 MG Q4P PRN 02/18 1630 AC 02/22 PO 1505 Ceftriaxone Sodium 1,000 MG DAILY 02/21 1014 AC 02/24 IV 0757 Fat Emulsion 350 ML 02/24 190 AC Intravenous IV 02/25 1859 Fat Emulsion 500 ML Q24H 02/23 1900 AC 02/23 Intravenous IV 02/24 1859 1848 Fat Emulsion 500 ML Q24H 02/22 1900 DC 02/22 Intravenous IV 02/23 185 1932 Gabapentin 300 MG Q8 02/18 1400 AC 02/24 PO 0535 Heparin Sodium 5,000 UNIT Q8 02/04 06 AC 02/24 (Porcine) SC 0534 Hydromorphone HCl 2 MG Q3P PRN 02/17 1800 AC 02/24 IV 0535 Metoclopramide HCl 10 MG Q8 02/23 1400 AC 02/24 IV 0535 Nicotine 7 MG DAILY 02/04 0900 02/24 TOP 0756 Omeprazole 40 MG DAILY 02/07 0700 AC 02/24 PO 0535 Ondansetron HCl 4 MG Q6P PRN 02/04 0245 AC 02/23 IV 0435 Oxycodone HCl 10 MG Q4P PRN 02/23 1100 02/24 PO 0949 Total Parenteral 1 UNIT 02/24 190 AC Nutrition IV 02/25 185 Total Parenteral 1 UNIT ONE 02/23 190 AC 02/23 Nutrition IV 02/24 1859 1846 Total Parenteral 1 UNIT ONE 02/22 190 DC 02/22 Nutrition IV 02/23 185 1933 Results Last 48 Hours of Labs: Laboratory Tests 02/24 02/24 02/23 0600 0545 0610 Chemistry Sodium (137 - 145 mmol/L) 131 L 131 L Potassium (3.5 - 5.1 mmol/L) 3.9 3.7 Chloride (98 - 107 mmol/L) 95 L 95 L Carbon Dioxide (22 - 30 mmol/L) 28 29 Anion Gap (5 - 16) 8 6 BUN (9 - 20 mg/dL) 10 11 Creatinine (0.7 - 1.2 mg/dL) 0.7 0.6 L Estimated GFR (>60 ml/min) > 60 > 60 BUN/Creatinine Ratio (7 - 25 %) 14.3 18.3 Calcium (8.4 - 10.2 mg/dL) 7.4 L Phosphorus (2.5 - 4.5 mg/dL) 3.6 Magnesium (1.6 - 2.3 mg/dL) 1.9 Total Bilirubin (0.2 - 1.3 mg/dL) 0.8 0.8 Direct Bilirubin (< 0.4 mg/dL) 0.6 H 0.6 H AST (17 - 59 U/L) 113 H 102 H ALT (21 - 72 U/L) 103 H 84 H Alkaline Phosphatase (< 127 U/L) 98 95 Total Protein (6.3 - 8.2 g/dL) 5.5 L 5.6 L Albumin (3.5 - 5.0 g/dL) 2.3 L 2.3 L Prealbumin (17.6 - 36.0 mg/dL) 3.4 L Hematology CBC w Diff Cancelled NO MAN DIFF REQ WBC (4.8 - 10.8 /CUMM) Cancelled 8.4 RBC (4.70 - 6.10 /CUMM) Cancelled 3.45 L Hgb (14.0 - 18.0 G/DL) Cancelled 10.5 L Hct (42 - 52 %) Cancelled 30.9 L MCV (80.0 - 94.0 FL) Cancelled 89.5 MCH (27.0 - 31.0 PG) Cancelled 30.4 MCHC (33.0 - 37.0 G/DL) Cancelled 34.0 RDW (11.5 - 14.5 %) Cancelled 14.7 H Plt Count (130 - 400 /CUMM) Cancelled 346 MPV (7.4 - 10.4 FL) Cancelled 8.1 Gran % (42.2 - 75.2 %) 80.3 H Lymphocytes % (20.5 - 51.1 %) 5.5 L Monocytes % (1.7 - 9.3 %) 13.3 H Eosinophils % (0 - 5 %) 0.7 Basophils % (0.0 - 2.0 %) 0.2 Absolute Granulocytes (1.4 - 6.5 /CUMM) 6.7 H Absolute Lymphocytes (1.2 - 3.4 /CUMM) 0.5 L Absolute Monocytes (0.10 - 0.60 /CUMM) 1.1 H Absolute Eosinophils (0.0 - 0.7 /CUMM) 0.1 Absolute Basophils (0.0 - 0.2 /CUMM) 0 Assessment/Plan Assessment/Plan infected pancreatic pseudocyst. improved clinically with TPN/NPO/IV Ceftriaxone for resistant Enterobacter. Continue treatment as ordered. Plan repeat CT in two days. I don't see a reason for transfer. Given anatomic location of pseudocyst, endoscopic drainage through stomach would work. The fluid collection is primarily centered around duodenum and right colon. The only way for enteric drainage would be through duodenum---generally not acceptable.
--- NOTE | 2018-02-24 13:43 | PN- Att Addend ---
Attending Addendum Attending Brief Note Patient ambulating, still has the hiccups. The medication given as an injection was "too strong" and heard when given. Maybe we can use a lower dose of medication given by mouth, Compazine on a lower dose. Continue hyperalimentation and follow-up blood work. Intake & Output 02/24 0400 02/23 1600 02/23 0400 02/22 1600 02/22 0400 Intake Total 950.4 465.0 1006.4 643.2 1126.4 Output Total 208 053 9846 800 850 550 Balance 50.4 165.0 6.4 -156.8 276.4 -550 Intake, IV 100 30 83.2 Intake, Lipid 116.8 75.0 166.4 166.4 Intake, Oral 0 60 60 Intake, 733.6 360 840 500 900 TPN/PPN Number 0 0 Bowel Movements Output, Urine 492 667 2926 800 850 550 Patient 205 lb 208 lb 207 lb Weight Weight Bed scale Bed scale Measurement Method Current Medications Sig/Oz Start time Last Medication Dose Route Stop Time Status Admin Acetaminophen 650 MG Q4P PRN 02/18 1630 AC 02/22 PO 1505 Ceftriaxone Sodium 1,000 MG DAILY 02/21 1014 AC 02/24 IV 0757 Fat Emulsion 350 ML 1900 02/24 1900 AC Intravenous IV 02/25 1859 Fat Emulsion 500 ML Q24H 02/23 1900 AC 02/23 Intravenous IV 02/24 1859 1848 Fat Emulsion 500 ML Q24H 02/22 1900 DC 02/22 Intravenous IV 02/23 1859 1932 Gabapentin 300 MG Q8 02/18 1400 AC 02/24 PO 1312 Heparin Sodium 5,000 UNIT Q8 02/04 0600 AC 02/24 (Porcine) SC 1312 Hydromorphone HCl 2 MG Q3P PRN 02/17 1800 AC 02/24 IV 1316 Metoclopramide HCl 10 MG Q8 02/23 1400 AC 02/24 IV 1312 Nicotine 7 MG DAILY 02/04 09 AC 02/24 TOP 0756 Omeprazole 40 MG DAILY AC 02/07 0700 AC 02/24 PO 0535 Ondansetron HCl 4 MG Q6P PRN 02/04 0245 AC 02/23 IV 0435 Oxycodone HCl 10 MG Q4P PRN 02/23 1100 AC 02/24 PO 0949 Total Parenteral 1 UNIT 1900 02/24 1900 AC Nutrition IV 02/25 1859 Total Parenteral 1 UNIT ONE 02/23 1900 AC 02/23 Nutrition IV 02/24 185 1846 Total Parenteral 1 UNIT ONE 02/22 1900 DC 02/22 Nutrition IV 02/23 1859 1933 Laboratory Tests 02/24/18 0600: CBC w Diff Cancelled, WBC Cancelled, RBC Cancelled, Hgb Cancelled, Hct Cancelled , MCV Cancelled, MCH Cancelled, MCHC Cancelled, RDW Cancelled, Plt Count Cancelled, MPV Cancelled 02/24/18 0545: Anion Gap 8, Estimated GFR > 60, BUN/Creatinine Ratio 14.3, Calcium 7.4 L, Phosphorus 3.6, Magnesium 1.9, Total Bilirubin 0.8, Direct Bilirubin 0.6 H, AST 113 H, ALT 103 H, Alkaline Phosphatase 98, Total Protein 5.5 L, Albumin 2.3 L, Prealbumin 3.4 L 02/23/18 0610: Anion Gap 6, Estimated GFR > 60, BUN/Creatinine Ratio 18.3, Total Bilirubin 0.8, Direct Bilirubin 0.6 H, AST 102 H, ALT 84 H, Alkaline Phosphatase 95, Total Protein 5.6 L, Albumin 2.3 L, CBC w Diff NO MAN DIFF REQ, RBC 3.45 L, MCV 89.5, MCH 30.4, MCHC 34.0, RDW 14.7 H, MPV 8.1, Gran % 80.3 H, Lymphocytes % 5.5 L, Monocytes % 13.3 H, Eosinophils % 0.7, Basophils % 0.2, Absolute Granulocytes 6.7 H, Absolute Lymphocytes 0.5 L, Absolute Monocytes 1.1 H, Absolute Eosinophils 0.1, Absolute Basophils 0 02/22/18 0630: Anion Gap 5, Estimated GFR > 60, BUN/Creatinine Ratio 17.1, Magnesium 2.0, Triglycerides 81, CBC w Diff NO MAN DIFF REQ, RBC 3.42 L, MCV 89.5, MCH 30.1, MCHC 33.6, RDW 14.1, MPV 8.0, Gran % 83.4 H, Lymphocytes % 6.1 L, Monocytes % 10.1 H, Eosinophils % 0.3, Basophils % 0.1, Absolute Granulocytes 7.5 H, Absolute Lymphocytes 0.5 L, Absolute Monocytes 0.9 H, Absolute Eosinophils 0, Absolute Basophils 0 Vital Signs Date Time Temp Pulse Resp B/P B/P Pulse O2 O2 Flow FiO2 Mean Ox Delivery Rate 02/24 0731 98.7 81 20 113/69 98 02/23 2136 98.8 76 20 134/86 95 Room Air 02/23 1438 99.4 75 16 129/81 96 Room Air
[2018-02-24 14:06] VITALS: BP 121/75
--- NOTE | 2018-02-24 16:20 | PN- Gastroenterology ---
Assessment/Plan GI Assessment/Recommendations: (*Please refer to my initial inpt GI consultation of 02/04/18. I assumed the weekly inpatient GI service from Dr. Jenae Ardon on 02/21/18. Extensive records reviewed). 52 y/o male, HTN, non-DM, renal stones post ESWL, smoker, hx GERD, anxiety, 02/27: CCKY for biliary colic (path: chronic cholecystitis, cholesterolosis, & cholelithiasis), hx diverticulosis coli, post 09/05/15: Pippa's procedure for sigmoid diverticulitis with phlegmon, f/b 12/27/15: reversal of colostomy, KRISTIN, reinforcement of midline fascia with mesh. This was followed by 08/14/16: open mesh repair of ventral incisional hernia, along with bilateral advancement rectus muscular fascial flap reconstruction, all per Dr. Cordon. He also has hx gout & had numerous orthopedic procedures, including right rotator cuff surgery, & left elbow ulnar surgery. *He had a chronic pain syndrome in the right flank. 03/15/06: EGD/colonoscopy (purged) gastric bxs unremarkable, H. pylori negative; bxs GEJ- benign inflammation, without Collier's esophagus. 09/06/14: Combined baseline upper endoscopy to the third portion of the duodenum with biopsies, plus follow up colonoscopy to the terminal ileum with biopsies (*done for GERD & chronic vague right-sided abdominal sx, requiring multiple ER visits & OV with the GI [employer])- ? mild gastroparesis with bile cleared from proximal stomach, random bxs D2/D3- neg, random bx antrum- mild CAG, HP-neg, bx inflamed cardia- mild CFG , HP-neg, 2 cm HH, random bxs distal esophagus at 42 cm/Z line & at 39 cm- nl esophageal mucosa, neg EOE; mod L tics, focal sigmoid erythema from 25-30 cm in midst of tics-colonic mucosa with focal hyperplastic change & hemorrhage, random bxs of TI, right colon, left colon, & rectum- all neg. (The pt was rxd Nexium 40 mg daily then) He was due for f/u surveillance colonoscopy x 10 yrs (avg risk) = 08/2024. He was told if inc sx, to consider GES (which he never had), TFT with TSH, HgbA1C, celiac panel, etc. He was then seen in inpatient GI consultation 04/22/[address] Sprague for sigmoid diverticulitis, txd with antibiotics. He ultimately then had 09/05/15: Pippa 's procedure, followed by 12/27/15: reversal of colostomy/KRISTIN & 08/14/16: open mesh repair of ventral incisional hernia, as above. He was most recently seen in inpatient GI consultation by Dr. Jenae Ardon , for chronic progressive vague right-sided abdominal/right flank pain, which was somewhat positional in nature. This was felt to have a neuropathic quality. History, exam, and imaging did not show any acute intra-abdominal or retroperitoneal process. He had a minimally elevated lipase then which was felt to be nonspecific. There was no clinical evidence of pancreatitis. A radicular process vs. zoster was considered, & he was rxd ANGE & Valacyclovir. A Lyme titer then was negative, although he did get a 10 day course of Doxycyline. Since 1 PM on 02/03/18, the patient noted nausea, vomiting, diarrhea, and intermittent, severe intense, abdominal pain, described as "someone beating the hell out of my stomach". It was localized to the periumbilical region, radiating suprapubically and epigastrically. Initially, the pain was "3 out of 10", then became "10 out of 10" and constant in nature. He took Iliana-[place], without relief. He arrived at the [facility] 02/04/18 at 12:14 a.m. for the above, at which point, he was HTN, with BP 218/97, P 57, R 22, T 97.5, O2 sat RA 100%. He was initially in tears from the pain. He was rxd IV Zofran, MS, IV NS switched to IV LR He had a loose bowel movement 1 day OCULARIST, none since, with minimal constipation, but no obstipation,watery diarrhea, or tenesmus. The vomitus initially showed partially digested food, but then became clear, non-bloody, non-bilious. He had chronic GERD, for which he took Tums prn. He was not on longstanding PPI. He denied any odynophagia or dysphagia. He denied using any NSAIDS, thiazides, or Sulfa meds. He denied any hematemesis, melena, or BRBPR. He denied any EtOH, transfusions, IVDA, HIV, or hx viral hepatitis. He denied any definite jaundice, dark urine, light stools, pruritus, or confusion. He denied any fevers, chills, night sweats, CP, SOB, symptoms of UTI or URI. There was no abdominal trauma. His appetite was fair, since his multiple abdominal surgeries a few years ago. He denied any early satiety. His weight had been stable for the past 2 years, but he stated that he was previously obese & lost > 100 lbs a few years ago, in the midst of tx of his divericulitis. There is no FHx GI Ca, GI disease, inherited pancreatitis, or inherited liver disease. He was found to have newly elevated LFTs & elevated lipase (*see labs). 11/24/17: minimal lipase 401, with nl LFTs. 02/04/18: 0116- Admission labs-WBC 11.5 (92% gran/11 gran Ab), H/H 18/51.3, MCV 90, RDW 13.9, PLT 137, glucose 125, BUN/CR 16/1.1, GFR > 60, Na 141, K 4.0, HCO3 23, AG 14, Ca 10.1, amylase 3643, lipase > 10K, albumin 4.7, globulin 3.9, Tbil 2.3, DBil 1.4, alk phos 196, AST 266, ALT 219, troponin < 0.01; (no U/A or PT/ PTT). 02/04/18: 0246- *TG 101, [EtOH] < 10. 02/04/18: EKG- SB @ 57, nl axis, MN .20, no ischemic change. 02/04/18: CT ABDOMEN AND PELVIS WITHOUT IV CONTRAST (*per Krishna CARRENO, limited study w/o IV cont)- Prominent inflammatory changes surrounding the pancreas with edematous appearance of the pancreas. This is suggestive of acute pancreatitis. No PD dilitation. Post CCKY with postop CBD 1.3 cm (chronic), no filling defect. Stable ectatic appearance of the left common iliac artery. Normal AP. No hernia. DJD. 02/04/18: US ABDOMEN COMPLETE- 1. Edematous pancreas with peripancreatic fluid, consistent with acute pancreatitis. 2. The pancreatic head and portions of the tail are not visualized. 3. Intra and extrahepatic ductal dilatation is seen. Common bile duct measuring up to 1 cm. Findings may at least in part be related to the patient's postcholecystectomy state with similar appearance seen on older CT scan from 07/11/2017, at which time, no evidence of acute pancreatitis was seen. In the visualized portions of the common bile duct on today's exam, no filling defect is seen. Distal most CBD is, however, not visualized. Close clinical correlation is requested. 4. Status post cholecystectomy. *Unfortunately, no MRCP available at [facility] on Tuesdays, prohibiting this on . *The patient was initially most likely felt to have gallstone pancreatitis. His TG were normal. He did bump up his LFTs. *He had no signs or symptoms of cholangitis. The admission CT was somewhat limited without IV contrast. Even so, it showed pancreatic inflammation. Subsequent admission ultrasound showed chronic mild nonspecific dilated CBD & mildly dilated IHD, but apparently, these findings are chronic, post CCKY. However, the elevated LFTs are new. Unfortunately, MRCP was not available at [facility] on Tuesdays, & therefore, could not be obtained on 02/04/18. He appeared somewhat hemoconcentrated on admission, as did his HCT 51.3. *He had 1 grave sign by Kala criteria on admission, namely elevated AST, although no LDH was sent. *He had 0 grave signs by BiSAP criteria on admission, but no CXR was obtained to rule out pleural effusions. ( Limited views of the lung bases on CT AP were clear). He denied EtOH. He is a 30 pk yr cigarette smoker, which is a risk factor for pancreatitis. Surprisingly, 02/05/18: MRCP was negative for choledocholithiasis. The patient has had numerous imaging studies since admission, *including aspirate of right subhepatic fluid collection, performed on 02/20/18, with right sided PICC placed that day, as well. 02/20/18: BF amylase 42, BF cell count could not be done by lab, g stain w/o WBC , with *BF C&S- mod GNR. *As of 02/21/18, the pt was hemodynamically stable, & afebrile, with O2 sat RA 94%. His leukocytosis was improved. There was no hemoconcentration by labs. He was malnourished with 02/20/18: PAB < 3, TG 79 (*TPN rxd). LFTs had normalized except for decreased synthetic function. He still had some abdominal pain, mostly in the RLQ & right flank. He also noted nausea and mild vomiting. He no longer had fevers or chills. He was no longer yellow. *The patient was put on IV Ceftriaxone 02/21/18, for acute pancreatitis with pseudocyst and infected necrosis. *Plans are to try to wait 6-8 weeks until the wall of the pseudocyst matures, prior to considering surgical intervention. * Another option could be eventual drainage via EUS, and will discuss with surgery , although the pt did not appear to be desirous of going to [facility], ? "because of transportation issues, which would arise when he was D/C from there". 02/18/18: nl LFTs xc alb 2.6, glob 2.8 02/20/18: PAB < 3.0 02/21/18: BF C&S- E. Cloacae (*S-Fortaz/Ceftriaxone/Cipro/Gent/Bactrim). 02/22/18: WBC 8.9, H/H 10.3/30.6, PLT 351, BUN/Cr 12/0.7, GFR > 60, Na 130, K 3.8, HCO3 29, AG 5, Mg 2.0, TG 81 *As of 02/22/18, the patient was hemodynamically stable, with Tm 99.5 (98.7), with O2 sat RA 96%. The patient had a panic attack earlier today with anxiety. He remained NPO on TPN. He had some mild nausea with Dilaudid. He was having loose BMs. His right-sided abdominal pain was slowly improving, as well as his leukocytosis. He denied any jaundice, vomiting, or chills. He also noted hiccups for the past few days. He denied any CP, SOB, or pleuritic pain. 02/20: CXR-small pleural effusions and bibasilar atelectasis. *Overall, he appeared to be slowly improving. 02/23/18: 0610- WBC 8.4, H/H 10.5/30.9, MCV 89.5, PLT 346, BUN/Cr 11/0.6, GFR > 60, Na 131, K 3.7, HCO3 29, AG 6, albumin 2.3, globulin 3.3, TBil 0.8/DBil 0.6, alk phos 95, AST 102, ALT 84 (*on TPN) *As of 02/23/18, the patient remained hemodynamically stable, with Tm 99.4 (on Ceftriaxone), & O2 sat RA 96%. + 206.4 mL, w/o hemoconcentration by labs. Overall, he continued to slowly improve. His RLQ pain was better, as was his nausea. He denied any chills, jaundice, vomiting, CP, or SOB. He was ambulating. He remained NPO on TPN with intralipids. He was given Chlorpromazine 25 mg IM x 1 earlier today for his hiccoughs, which helped. 02/24/18: 0545- BUN/Cr 10/0.7, GFR > 60, Na 131, K 3.9, HCO3 28, AG 8, Mg 1.9, Ca 7.4, PO4 3.6, *PAB 3.4, albumin 2.3, globulin 3.2, TBil 0.8, DBil 0.6, alk phos 98, AST 113, ALT 103. *As of 02/24/18, the patient was hemodynamically stable & afebrile, with O2 sat RA 95%. He remained on IV Ceftriaxone for his infected pseudocyst. He remained NPO on TPN with intralipids. The patient still had hiccups, but was not getting the Chlorpromazine. When he did get 1 dose of this, it worked. The pt apparently either "did not like the IM shot", or it "made him sleepy", but I told him it could be given po. His abdominal pain & nausea seemed much improved. He denied any chills or jaundice. He had no new complaints, otherwise. *I discussed the case with Dr. Roach, of surgery. I also spoke with Dr. Vicente at [facility] on 02/24/18. *If and when the patient is ready for drainage, the issue would be whether to do this surgically vs. via EUS. Dr. Vicente has drained infected pseudocysts via either the stomach or duodenum (this particular one would require a duodenal approach), & he told me they have a metal stent that has the ability to cauterize into the pseudocyst & then be anchored in place. Usually they can later pull it in a month or so, if the subsequent CT shows improvement. This can be readdressed down the road & was also d/w the pt. A/P: 52 y/o male, acute pancreatitis with infected necrosis, pseudocyst, abdominal pain, hiccoughs (the latter probably from some diaphragmatic irritation), elevated LFTs (*on TPN), malnutrition, anemia, post 01/30/06: CCKY, hx 12/27/15: colostomy reversal/KRISTIN for sigmoid diverticulitis with phlegmon. *SUGGEST: NPO. TPN with intralipids. Bowel rest. Strict I/O's. Serial CBC, *Serial LFTs (* on TPN, which often gives more of a cholestatic picture). Serial lytes, CBC, BUN /Cr, GFR. *Watch for hemoconcentration (i.e.- rising Hgb or BUN) despite IVF/TPN , which would be a poor prognostic sign. IV Zofran. Analgesics. ANGE. IV Protonix 40 mg daily, for GERD. D/C cigarettes (on Nicotine patch 7 mg QD). DVT prophylaxis. *Continue IV Ceftriaxone. *Follow-up with surgery. Continue narcotic analgesics and antiemetics. If hiccoughs worsen, consider repeat CXR & trial of Chlorpromazine 25-50 mg *po TID). If patient deteriorates, consider transfer to [facility] for inpatient EUS, but he currently is slowly improving. For tentative repeat CT with pancreatic protocol on 02/26/18, per surgery. *Try to wait 6-8 weeks until the wall of the pseudocyst matures, prior to considering surgical intervention vs. drainage via EUS via duodenal approach (d/w Dr. Roach & Dr. Vicente on 02/24/18). [As an aside, he is due for f/u surveillance colonoscopy in 08/2024]. Further GI recommendations to follow, depending on clinical course. Problem List: 1. Acute pancreatitis with infected necrosis 2. Pseudocyst of pancreas 3. Abdominal pain 4. Hiccoughs 5. Elevated LFTs 6. Malnutrition 7. History of cholecystectomy 8. History of colostomy reversal 9. Diverticulosis of colon 10. Anemia Subjective Subjective: 02/24/18: 0545- BUN/Cr 10/0.7, GFR > 60, Na 131, K 3.9, HCO3 28, AG 8, Mg 1.9, Ca 7.4, PO4 3.6, *PAB 3.4, albumin 2.3, globulin 3.2, TBil 0.8, DBil 0.6, alk phos 98, AST 113, ALT 103. *As of 02/24/18, the patient was hemodynamically stable & afebrile, with O2 sat RA 95%. He remained on IV Ceftriaxone for his infected pseudocyst. He remained NPO on TPN with intralipids. The patient still had hiccups, but was not getting the Chlorpromazine. When he did get 1 dose of this, it worked. The pt apparently either "did not like the IM shot", or it "made him sleepy", but I told him it could be given po. His abdominal pain & nausea seemed much improved. He denied any chills or jaundice. He had no new complaints, otherwise. *I discussed the case with Dr. Roach, of surgery. I also spoke with Dr. Vicente at [facility] on 02/24/18. *If and when the patient is ready for drainage, the issue would be whether to do this surgically vs. via EUS. Dr. Vicente has drained infected pseudocysts via either the stomach or duodenum (this particular one would require a duodenal approach), & he told me they have a metal stent that has the ability to cauterize into the pseudocyst & then be anchored in place. Usually they can later pull it in a month or so, if the subsequent CT shows improvement. This can be readdressed down the road. Review of Systems: Full 14 point ROS otherwise noncontributory, & as above. Review of Systems Constitutional: Reports: weight loss as inpt. Denies: chills, diaphoresis, fever, malaise, weakness EENTM: Denies: blurred vision, double vision, visual changes, eye pain, eye drainage, eye tearing, icterus, ear discharge, ear pain, ear redness, hearing changes, nasal congestion, epistaxis, nasal pain, throat pain, throat swelling, mouth pain, tooth pain. Cardiovascular: Denies: chest pain, edema, orthopena, palpitations, peripheral edema, syncope. Respiratory: Denies: cough, hemoptysis, orthopnea, short of breath, sputum production, stridor, wheezing. GI: Reports: abdominal pain-> slowly improving; nausea-> mild. Occ hiccoughs-> Chlorpromazine. Denies: bloating, vomiting, constipation, diarrhea, distention, bowel incontinence, melena, bloody stool, changes in stool, steatorrhea. Genitourinary: Denies: discharge, dysuria, frequency, hematuria, hesitation, nocturia, pain, urgency. Musculoskeletal: Denies: back pain, gout, joint pain, joint swelling, muscle pain, muscle stiffness, neck pain. Skin: Denies: cysts, change in skin color, change in hair/nails, dryness, erythema, jaundice, lesions, lymphangitis, lumps, moles, rash. Neurological/Psychological: Reports: anxiety, emotional problems. Denies: ataxia, cognitive dysfunction, confusion, depressed, dementia, headache, numbness, paresthesia, pre-existing deficit, petit mal seizures, tingling, tremors, tonic-clonic seizures, unable to move lower ext, unable to move upper ext, weakness, other. Hematologic/Endocrine: Denies: bruising, bleeding, polyuria, polydipsia. Immunologic/Allergic: Denies: splenectomy, HIV/AIDS, lymphadenopathy. All Other Systems: Reviewed and Negative Objective Vital Signs and I&Os Vital Signs Date Time Temp Pulse Resp B/P B/P Pulse O2 O2 Flow FiO2 Mean Ox Delivery Rate 02/24 1406 98.8 80 18 121/75 95 Room Air 02/24 0731 98.7 81 20 113/69 98 02/23 2136 98.8 76 20 134/86 95 Room Air Intake & Output 02/24 1600 02/24 0400 02/23 1600 02/23 0400 02/22 1600 02/22 0400 Intake Total 1800.8 465.0 1006.4 643.2 1126.4 Output Total 1352 206 3778 800 850 550 Balance 425.8 165.0 6.4 -156.8 276.4 -550 Intake, IV 100 30 83.2 Intake, Lipid 233.6 75.0 166.4 166.4 Intake, Oral 0 60 60 Intake, 1467.2 360 840 500 900 TPN/PPN Number 1 0 0 Bowel Movements Output, Urine 4408 236 2871 800 850 550 Patient 205 lb 208 lb 207 lb Weight Weight Bed scale Bed scale Measurement Method Physical Exam: Well-developed, well-nourished male, in mild distress, non-toxic appearing. Sclera anicteric. Conjunctiva pink. Oropharynx clear. No oral thrush. No aphthous ulcers. There is no adenopathy, thyromegaly, or JVD. No peripheral stigmata of inflammatory bowel disease or chronic liver disease on exam. No spiders on the anterior chest wall. No gynecomastia. No CVA tenderness. No spine tenderness. Lungs: clear to A&P, with slight decreased BS at bases B/L. No wheezing, rales, or rhonchi. Heart exam: regular rate rhythm, S1 and S2, without any murmur. Abdominal exam: normal bowel sounds, soft belly, mildly distended, *much improved RLQ tenderness, without guarding or rebound. No mass. No organomegaly. No definite fluid shift. No epigastric bruit. No pulsatile mass. Multiple scars. Digital rectal exam: previously deferred by patient. Extremities : without C, C, or E. No rash. Clean site at [facility]. Mild DJD. No palmar erythema. No Dupuytren's contractures. No palpable cords. Distal pulses 2+ bilaterally. DTRs 2+ bilaterally. Right handed. CN II-XII prev intact. Motor 5 /5 B/L. Alert and oriented x 3. No tremor. No asterixis. Current Medications: Current Medications Sig/Oz Start time Last Medication Dose Route Stop Time Status Admin Acetaminophen 650 MG Q4P PRN 02/18 1630 AC 02/22 PO 1505 Ceftriaxone Sodium 1,000 MG DAILY 02/21 1014 AC 02/24 IV 0757 Fat Emulsion 350 ML 02/24 190 AC Intravenous IV 02/25 1859 Fat Emulsion 500 ML Q24H 02/23 1900 AC 02/23 Intravenous IV 02/24 1859 1848 Fat Emulsion 500 ML Q24H 02/22 1900 DC 02/22 Intravenous IV 02/23 185 193 Gabapentin 300 MG Q8 02/18 1400 AC 02/24 PO 1312 Heparin Sodium 5,000 UNIT Q8 02/04 0600 AC 02/24 (Porcine) SC 1312 Hydromorphone HCl 2 MG Q3P PRN 02/17 1800 AC 02/24 IV 1316 Metoclopramide HCl 10 MG Q8 02/23 1400 AC 02/24 IV 1312 Nicotine 7 MG DAILY 02/04 09 AC 02/24 TOP 0756 Omeprazole 40 MG DAILY AC 02/07 0700 AC 02/24 PO 0535 Ondansetron HCl 4 MG Q6P PRN 02/04 0245 AC 02/23 IV 0435 Oxycodone HCl 10 MG Q4P PRN 02/23 1100 AC 02/24 PO 0949 Total Parenteral 1 UNIT 19002/24 190 AC Nutrition IV 02/25 185 Total Parenteral 1 UNIT ONE 02/23 1900 AC 02/23 Nutrition IV 02/24 185 1846 Total Parenteral 1 UNIT ONE 02/22 190 DC 02/22 Nutrition IV 02/23 185 1933 Results Pertinent Lab Results: Laboratory Tests 02/24 02/24 02/23 0600 0545 0610 Chemistry Sodium (137 - 145 mmol/L) 131 L 131 L Potassium (3.5 - 5.1 mmol/L) 3.9 3.7 Chloride (98 - 107 mmol/L) 95 L 95 L Carbon Dioxide (22 - 30 mmol/L) 28 29 Anion Gap (5 - 16) 8 6 BUN (9 - 20 mg/dL) 10 11 Creatinine (0.7 - 1.2 mg/dL) 0.7 0.6 L Estimated GFR (>60 ml/min) > 60 > 60 BUN/Creatinine Ratio (7 - 25 %) 14.3 18.3 Calcium (8.4 - 10.2 mg/dL) 7.4 L Phosphorus (2.5 - 4.5 mg/dL) 3.6 Magnesium (1.6 - 2.3 mg/dL) 1.9 Total Bilirubin (0.2 - 1.3 mg/dL) 0.8 0.8 Direct Bilirubin (< 0.4 mg/dL) 0.6 H 0.6 H AST (17 - 59 U/L) 113 H 102 H ALT (21 - 72 U/L) 103 H 84 H Alkaline Phosphatase (< 127 U/L) 98 95 Total Protein (6.3 - 8.2 g/dL) 5.5 L 5.6 L Albumin (3.5 - 5.0 g/dL) 2.3 L 2.3 L Prealbumin (17.6 - 36.0 mg/dL) 3.4 L Hematology CBC w Diff Cancelled NO MAN DIFF REQ WBC (4.8 - 10.8 /CUMM) Cancelled 8.4 RBC (4.70 - 6.10 /CUMM) Cancelled 3.45 L Hgb (14.0 - 18.0 G/DL) Cancelled 10.5 L Hct (42 - 52 %) Cancelled 30.9 L MCV (80.0 - 94.0 FL) Cancelled 89.5 MCH (27.0 - 31.0 PG) Cancelled 30.4 MCHC (33.0 - 37.0 G/DL) Cancelled 34.0 RDW (11.5 - 14.5 %) Cancelled 14.7 H Plt Count (130 - 400 /CUMM) Cancelled 346 MPV (7.4 - 10.4 FL) Cancelled 8.1 Gran % (42.2 - 75.2 %) 80.3 H Lymphocytes % (20.5 - 51.1 %) 5.5 L Monocytes % (1.7 - 9.3 %) 13.3 H Eosinophils % (0 - 5 %) 0.7 Basophils % (0.0 - 2.0 %) 0.2 Absolute Granulocytes (1.4 - 6.5 /CUMM) 6.7 H Absolute Lymphocytes (1.2 - 3.4 /CUMM) 0.5 L Absolute Monocytes (0.10 - 0.60 /CUMM) 1.1 H Absolute Eosinophils (0.0 - 0.7 /CUMM) 0.1 Absolute Basophils (0.0 - 0.2 /CUMM) 0 09/01 0630 Chemistry Sodium (137 - 145 mmol/L) 130 L Potassium (3.5 - 5.1 mmol/L) 3.8 Chloride (98 - 107 mmol/L) 96 L Carbon Dioxide (22 - 30 mmol/L) 29 Anion Gap (5 - 16) 5 BUN (9 - 20 mg/dL) 12 Creatinine (0.7 - 1.2 mg/dL) 0.7 Estimated GFR (>60 ml/min) > 60 BUN/Creatinine Ratio (7 - 25 %) 17.1 Magnesium (1.6 - 2.3 mg/dL) 2.0 Triglycerides (<150 mg/dL) 81 Hematology CBC w Diff NO MAN DIFF REQ WBC (4.8 - 10.8 /CUMM) 8.9 RBC (4.70 - 6.10 /CUMM) 3.42 L Hgb (14.0 - 18.0 G/DL) 10.3 L Hct (42 - 52 %) 30.6 L MCV (80.0 - 94.0 FL) 89.5 MCH (27.0 - 31.0 PG) 30.1 MCHC (33.0 - 37.0 G/DL) 33.6 RDW (11.5 - 14.5 %) 14.1 Plt Count (130 - 400 /CUMM) 351 MPV (7.4 - 10.4 FL) 8.0 Gran % (42.2 - 75.2 %) 83.4 H Lymphocytes % (20.5 - 51.1 %) 6.1 L Monocytes % (1.7 - 9.3 %) 10.1 H Eosinophils % (0 - 5 %) 0.3 Basophils % (0.0 - 2.0 %) 0.1 Absolute Granulocytes (1.4 - 6.5 /CUMM) 7.5 H Absolute Lymphocytes (1.2 - 3.4 /CUMM) 0.5 L Absolute Monocytes (0.10 - 0.60 /CUMM) 0.9 H Absolute Eosinophils (0.0 - 0.7 /CUMM) 0 Absolute Basophils (0.0 - 0.2 /CUMM) 0 Imaging/Other Studies: 02/04/18: EKG- SB @ 57, nl axis, MN .20, no ischemic change. 02/04/18: CT ABDOMEN AND PELVIS WITHOUT IV CONTRAST (*per Krishna CARRENO, limited study w/o IV cont)- Prominent inflammatory changes surrounding the pancreas with edematous appearance of the pancreas. This is suggestive of acute pancreatitis. No PD dilitation. Post CCKY with postop CBD 1.3 cm (chronic), no filling defect. Stable ectatic appearance of the left common iliac artery. Normal AP. No hernia. DJD. 02/04/18: US ABDOMEN COMPLETE- 1. Edematous pancreas with peripancreatic fluid, consistent with acute pancreatitis. 2. The pancreatic head and portions of the tail are not visualized. 3. Intra and extrahepatic ductal dilatation is seen. Common bile duct measuring up to 1 cm. Findings may at least in part be related to the patient's postcholecystectomy state with similar appearance seen on older CT scan from 07/11/2017, at which time, no evidence of acute pancreatitis was seen. In the visualized portions of the common bile duct on today's exam, no filling defect is seen. Distal most CBD is, however, not visualized. Close clinical correlation is requested. 4. Status post cholecystectomy. *Unfortunately, no MRCP available at [facility] on Tuesdays, prohibiting this on . 02/05/18: XRY-CHEST XRAY, TWO VIEWS- No acute cardiopulmonary process. 02/05/18: MR ABDOMEN WITHOUT CONTRAST/MRCP- 1. Acute interstitial pancreatitis is seen with pancreatic parenchymal edema and peripancreatic soft tissue edema and stranding. Associated circumferential wall thickening in the duodenum and proximal jejunum is seen, consistent with sympathetic changes to the pancreatic inflammation. 2. No evidence of variant ductal anatomy. No definite pancreatic head mass seen on noncontrast study. 3. Mild intrahepatic ductal dilatation and moderate extrahepatic ductal dilatation to 1 cm is seen. There is smooth tapering of the common bile duct to 0.4 cm in the preampullary region with no evidence of choledocholithiasis. Findings may be related to the patient's postcholecystectomy state. 4. A few scattered bilateral renal cysts are incidentally seen. 02/09/18: CT ABD & PELVIS W ORAL & IV CONT- Interval increase in pancreatic edema with increasing abdominal fluid likely employee representative of progressing pancreatitis. Right greater than left bilateral pleural effusions with associated airspace disease. 02/13/18: XRY-CHEST XRAY, TWO VIEWS- Bibasilar subsegmental atelectasis with small right more than left pleural effusions. No dense consolidation. 02/14/18: XRY-PORTABLE CHEST XRAY- Bilateral pleural effusions with bibasilar airspace opacity, consolidation atelectasis. These basilar densities are greater at the right lung base than the left. 02/15/18: [id number] VIEWS- No evidence of free air or air-fluid levels to suggest any perforation or obstruction. No organomegaly. 02/15/18: CT ABD & PELVIS W IV CONTRAST- 1. Similar appearance of the pancreas with diffuse edema without definite areas of necrosis. There are acute peripancreatic fluid collections seen, possibly decreasing since the prior study as detailed above. There is slightly increased organization with thin enhancing mascorro. 2. Right colonic wall thickening and submucosal fat proliferation, new since 11/22/2017. Whether this is representing acute colitis versus reaction to the closely adjacent fluid collections and pancreatitis is unclear. Clinical correlation requested. 3. Other chronic, nonacute findings as above. 02/18/18: XRY-CHEST XRAY, TWO VIEWS- Stable bibasilar airspace disease and small pleural effusions. : CT ABDOMEN WITHOUT AND WITH CONTRAST Unchanged inflammatory process involving the pancreas with peripancreatic fluid collections with one more organized discrete collection on the right abdomen just beneath the liver. *This is the collection for which a request has been made to aspirate tomorrow. The associated right colonic wall thickening and inflammatory changes remain present as well. 02/20/18: *ULTRASOUND-GUIDED ASPIRATION OF A PANCREATIC PSEUDOCYST- Diagnostic aspiration 18 cc light olivo, cloudy fluid, performed of the patient's right upper quadrant, subhepatic pseudocysts under sonographic guidance without evidence of complications. Specimens were sent to the laboratory for C&S, cell count with diff, and amylase as requested. 02/20/18: XRY-PORTABLE CHEST XRAY- (post PCC). The right arm peripherally inserted catheter is in satisfactory position. Persistent small pleural effusions and bibasilar atelectasis.
[2018-02-24 22:36] VITALS: BP 125/75
[2018-02-25 07:23] VITALS: BP 110/64
--- NOTE | 2018-02-25 08:07 | PN- Housestaff ---
Subjective Follow-up For: Smoldering pancreatitis GNR Subjective: seen while ambulating around the [facility] at [facility] floor. Reports pain better controlled He appears stronger and in no apparent distress compared to previous days. Reports marked improvement with minimal to non nausea episodes/no vomiting. Afebrile since 02/19. Review of Systems Constitutional: Reports: no symptoms. Objective Last 24 Hrs of Vital Signs/I&O Vital Signs Date Time Temp Pulse Resp B/P B/P Pulse O2 O2 Flow FiO2 Mean Ox Delivery Rate 02/25 07 98.9 75 20 110/64 97 02/24 2236 98.7 87 20 125/75 96 Room Air 02/24 1600 Room Air 02/24 1406 98.8 80 18 121/75 95 Room Air Intake & Output 02/25 1600 02/25 0800 02/25 0000 Intake Total 900.4 667.0 Output Total 500 1400 540 Balance -500 -499.6 127.0 Intake, IV 50 30 Intake, Lipid 116.8 87.0 Intake, Oral 0 Intake, 733.6 550 TPN/PPN Output, Urine 500 1400 540 Patient 90.718 kg Weight Weight Bed scale Measurement Method Physical Exam General Appearance: Alert, Oriented X3, Cooperative Neck: Supple, No JVD Lymphatic: Axillary nl, Cervical nl Cardiovascular: Regular Rate, Normal S1, Normal S2 Lungs: Clear to Auscultation, Normal Air Movement Abdomen: Normal Bowel Sounds, Soft, No Tenderness Assessment/Plan Assessment: Mr. Bynum is a 52yo M w/ PMH of diverticulitis, kidney stones s/p lithotripsy, gallstones s/p cholecystectomy, s/p Pippa procedure w/ temporary colostomy followed by revision in 2015, s/p hernia repair, reversible ischemia on nuclear stress test status post cardiac cath recently in 2014 presented to [facility] w/ N/V/D/severe intermittent ab pain since 1pm of 02/03/2018, endorseed loose BM, w/ intermittent non-bloody vomiting, mostly foods. Problem list #1 smoldering pancreatitis. Etiology as of now unclear. Etoh and choledocoltihiasis ruled out (negative MRCP). #2 hypokalemia-resolved #3 nicotine dependence #4 diarrhea with evidence of colitis on ct abd Assesment and Plan Clinically much improved, ablet to ambulate around the [facility] hallway in no apparent distress. Patient reports that his abdominal pain is much better. He remains afebrile sonce 02/19 with improving white count. The aspiration fluid at the right upper quadrant is growing Enterobacter Cloacea which is susceptible to the ceftriaxone that we started (now on day5) . He will inevitably need ex lap to assess his pancreatic pseudocysts wonce they have walled off we will reimage this coming week, he refused tranfer to [place] for EUS. He is on TPN today day 4, via PICC line. We'll carefully monitor triglycerides and electrolyte while patient is on the TPN. His hyponatremia is moderate but stable. We add NS IVF 1 bag for the hyponatremia. Problem List: 1. Pancreatitis, acute 2. Pseudocyst of pancreas Pain Ratin Pain Location: ABDOMEN Pain Goal: Remain pain free Pain Plan: per pathway Tomorrow's Labs & Rationales: CBC
--- NOTE | 2018-02-25 09:32 | PN- General Surgery ---
Surgical Brief Attending Note Brief Attending Note: Appreciate GI input. will consider transduodenal drainage should it be required. for now, continue course as dictated. repeat CT with contrast tomorrow. continue npo/tpn/iv cefriaxone.
--- NOTE | 2018-02-25 10:04 | PN- Att Addend ---
Attending Addendum Attending Brief Note A little better less hiccups and pain with med adjustments,parenteral feedings continue. vital signs stable no fever, No major changes on physical. to continue present treatments. Intake & Output 02/25 1600 02/25 1600 02/24 04002/23 1600 02/23 040 Intake Total 900.4 667.0 1800.8 465.0 1006.4 643.2 Output Total 0437 368 3644 300 1000 800 Balance -749.6 127.0 425.8 165.0 6.4 -156.8 Intake, IV 50 30 100 30 83.2 Intake, Lipid 116.8 87.0 233.6 75.0 166.4 Intake, Oral 0 0 60 Intake, 733.6 550 1467.2 360 840 500 TPN/PPN Number 1 0 Bowel Movements Output, Urine 4907 006 0995 300 1000 800 Patient 200 lb 205 lb 208 lb Weight Weight Bed scale Bed scale Measurement Method Current Medications Sig/Oz Start time Last Medication Dose Route Stop Time Status Admin Acetaminophen 650 MG Q4P PRN 02/18 1630 AC 02/22 PO 1505 Alteplase, 2 MG ONE ONE 02/25 08 DC 02/25 Recombinant IV 02/25 0801 0835 Ceftriaxone Sodium 1,000 MG DAILY 02/21 1014 AC 02/25 IV 0809 Chlorpromazine 25 MG Q6P PRN 02/24 1845 AC 02/25 PO 0250 Fat Emulsion 350 ML 1900 02/24 1900 AC 02/24 Intravenous IV 02/25 1859 1911 Fat Emulsion 500 ML Q24H 02/23 1900 DC 02/23 Intravenous IV 02/24 1859 1848 Gabapentin 300 MG Q8 02/18 1400 AC 02/25 PO 0554 Heparin Sodium 100 UNIT ONCE ONE 02/25 0630 DC (Porcine) IV 02/25 0631 Heparin Sodium 5,000 UNIT Q8 02/04 06 AC 02/25 (Porcine) SC 0554 Hydromorphone HCl 2 MG Q3P PRN 02/17 1800 AC 02/25 IV 0555 Metoclopramide HCl 10 MG Q8 02/23 1400 AC 02/25 IV 0554 Nicotine 7 MG DAILY 02/04 09 AC 02/25 TOP 0809 Omeprazole 40 MG DAILY AC 02/07 0700 AC 02/25 PO 0553 Ondansetron HCl 4 MG Q6P PRN 02/04 0245 AC 02/23 IV 0435 Oxycodone HCl 10 MG Q4P PRN 02/23 1100 AC 02/25 PO 0249 Total Parenteral 1 UNIT 1900 02/24 190 AC 02/24 Nutrition IV 02/25 1859 1912 Total Parenteral 1 UNIT ONE 02/23 190 DC 02/23 Nutrition IV 02/24 1859 1846 Laboratory Tests 02/24/18 0600: CBC w Diff Cancelled, WBC Cancelled, RBC Cancelled, Hgb Cancelled, Hct Cancelled , MCV Cancelled, MCH Cancelled, MCHC Cancelled, RDW Cancelled, Plt Count Cancelled, MPV Cancelled 02/24/18 0545: Anion Gap 8, Estimated GFR > 60, BUN/Creatinine Ratio 14.3, Calcium 7.4 L, Phosphorus 3.6, Magnesium 1.9, Total Bilirubin 0.8, Direct Bilirubin 0.6 H, AST 113 H, ALT 103 H, Alkaline Phosphatase 98, Total Protein 5.5 L, Albumin 2.3 L, Prealbumin 3.4 L 02/23/18 0610: Anion Gap 6, Estimated GFR > 60, BUN/Creatinine Ratio 18.3, Total Bilirubin 0.8, Direct Bilirubin 0.6 H, AST 102 H, ALT 84 H, Alkaline Phosphatase 95, Total Protein 5.6 L, Albumin 2.3 L, CBC w Diff NO MAN DIFF REQ, RBC 3.45 L, MCV 89.5, MCH 30.4, MCHC 34.0, RDW 14.7 H, MPV 8.1, Gran % 80.3 H, Lymphocytes % 5.5 L, Monocytes % 13.3 H, Eosinophils % 0.7, Basophils % 0.2, Absolute Granulocytes 6.7 H, Absolute Lymphocytes 0.5 L, Absolute Monocytes 1.1 H, Absolute Eosinophils 0.1, Absolute Basophils 0 Vital Signs Date Time Temp Pulse Resp B/P B/P Pulse O2 O2 Flow FiO2 Mean Ox Delivery Rate 02/25 07 98.9 75 20 110/64 97 02/24 2236 98.7 87 20 125/75 96 Room Air 02/24 1600 Room Air 02/24 1406 98.8 80 18 121/75 95 Room Air
[2018-02-25 11:08] LABS: ABSOLUTE BASOPHIL COUNT 0 /CUMM (0.0-0.2); ABSOLUTE EOSINOPHIL COUNT 0.1 /CUMM (0.0-0.7); ABSOLUTE GRANULOCYTE CT 4.9 /CUMM (1.4-6.5); ABSOLUTE LYMPH COUNT 0.7 /CUMM (1.2-3.4); ABSOLUTE MONOCYTE COUNT 1.4 /CUMM (0.10-0.60); BASOPHIL % 0.4 % (0.0-2.0); GRANULOCYTE % 68.8 % (42.2-75.2); MEAN CORPUSCULAR HGB 29.9 PG (27.0-31.0); MEAN CORPUSCULAR HGB CONC 33.8 G/DL (33.0-37.0); MEAN CORPUSCULAR VOLUME 88.6 FL (80.0-94.0); MEAN PLATELET VOLUME 7.8 FL (7.4-10.4); PLATELET COUNT 329 /CUMM (130-400); RBC DISTRIBUTION WIDTH 14.4 % (11.5-14.5); WHITE BLOOD CELL COUNT 7.2 /CUMM (4.8-10.8)
[2018-02-25 14:59] VITALS: BP 126/79
--- NOTE | 2018-02-25 19:22 | PN- Gastroenterology ---
Assessment/Plan GI Assessment/Recommendations: (*Please refer to my initial inpt GI consultation of 02/04/18. I assumed the weekly inpatient GI service from Dr. Jenae Ardon on 02/21/18. Extensive records reviewed). 52 y/o male, HTN, non-DM, renal stones post ESWL, smoker, hx GERD, anxiety, 02/27: CCKY for biliary colic (path: chronic cholecystitis, cholesterolosis, & cholelithiasis), hx diverticulosis coli, post 09/05/15: Pippa's procedure for sigmoid diverticulitis with phlegmon, f/b 12/27/15: reversal of colostomy, KRISTIN, reinforcement of midline fascia with mesh. This was followed by 08/14/16: open mesh repair of ventral incisional hernia, along with bilateral advancement rectus muscular fascial flap reconstruction, all per Dr. Cordon. He also has hx gout & had numerous orthopedic procedures, including right rotator cuff surgery, & left elbow ulnar surgery. *He had a chronic pain syndrome in the right flank. 03/15/06: EGD/colonoscopy (purged) gastric bxs unremarkable, H. pylori negative; bxs GEJ- benign inflammation, without Collier's esophagus. 09/06/14: Combined baseline upper endoscopy to the third portion of the duodenum with biopsies, plus follow up colonoscopy to the terminal ileum with biopsies (*done for GERD & chronic vague right-sided abdominal sx, requiring multiple ER visits & OV with the GI DENTAL PROSTHETIST)- ? mild gastroparesis with bile cleared from proximal stomach, random bxs D2/D3- neg, random bx antrum- mild CAG, HP-neg, bx inflamed cardia- mild CFG , HP-neg, 2 cm HH, random bxs distal esophagus at 42 cm/Z line & at 39 cm- nl esophageal mucosa, neg EOE; mod L tics, focal sigmoid erythema from 25-30 cm in midst of tics-colonic mucosa with focal hyperplastic change & hemorrhage, random bxs of TI, right colon, left colon, & rectum- all neg. (The pt was rxd Nexium 40 mg daily then) He was due for f/u surveillance colonoscopy x 10 yrs (avg risk) = 08/2024. He was told if inc sx, to consider GES (which he never had), TFT with TSH, HgbA1C, celiac panel, etc. He was then seen in inpatient GI consultation 04/22/[address] Sprague for sigmoid diverticulitis, txd with antibiotics. He ultimately then had 09/05/15: Pippa 's procedure, followed by 12/27/15: reversal of colostomy/KRISTIN & 08/14/16: open mesh repair of ventral incisional hernia, as above. He was most recently seen in inpatient GI consultation by Dr. Jenae Ardon , for chronic progressive vague right-sided abdominal/right flank pain, which was somewhat positional in nature. This was felt to have a neuropathic quality. History, exam, and imaging did not show any acute intra-abdominal or retroperitoneal process. He had a minimally elevated lipase then which was felt to be nonspecific. There was no clinical evidence of pancreatitis. A radicular process vs. zoster was considered, & he was rxd ANGE & Valacyclovir. A Lyme titer then was negative, although he did get a 10 day course of Doxycyline. Since 1 PM on 02/03/18, the patient noted nausea, vomiting, diarrhea, and intermittent, severe intense, abdominal pain, described as "someone beating the hell out of my stomach". It was localized to the periumbilical region, radiating suprapubically and epigastrically. Initially, the pain was "3 out of 10", then became "10 out of 10" and constant in nature. He took Iliana-Hanson, without relief. He arrived at the [facility] 02/04/18 at 12:14 a.m. for the above, at which point, he was HTN, with BP 218/97, P 57, R 22, T 97.5, O2 sat RA 100%. He was initially in tears from the pain. 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 The vomitus initially showed partially digested food, but then became clear, non-bloody, non-bilious. He had chronic GERD, for which he took Tums prn. He was not on longstanding PPI. He denied any odynophagia or dysphagia. He denied using any NSAIDS, thiazides, or Sulfa meds. He denied any hematemesis, melena, or BRBPR. He denied any EtOH, transfusions, IVDA, HIV, or hx viral hepatitis. He denied any definite jaundice, dark urine, light stools, pruritus, or confusion. He denied any fevers, chills, night sweats, CP, SOB, symptoms of UTI or URI. There was no abdominal trauma. His appetite was fair, since his multiple abdominal surgeries a few years ago. He denied any early satiety. His weight had been stable for the past 2 years, but he stated that he was previously obese & lost > 100 lbs a few years ago, in the midst of tx of his divericulitis. There is no FHx GI Ca, GI disease, inherited pancreatitis, or inherited liver disease. He was found to have newly elevated LFTs & elevated lipase (*see labs). 11/24/17: minimal lipase 401, with nl LFTs. 02/04/18: 0116- Admission labs-WBC 11.5 (92% gran/11 gran Ab), H/H 18/51.3, MCV 90, RDW 13.9, PLT 137, glucose 125, BUN/CR 16/1.1, GFR > 60, Na 141, K 4.0, HCO3 23, AG 14, Ca 10.1, amylase 3643, lipase > 10K, albumin 4.7, globulin 3.9, Tbil 2.3, DBil 1.4, alk phos 196, AST 266, ALT 219, troponin < 0.01; (no U/A or PT/ PTT). 02/04/18: 0246- *TG 101, [EtOH] < 10. 02/04/18: EKG- SB @ 57, nl axis, IA .20, no ischemic change. 02/04/18: CT ABDOMEN AND PELVIS WITHOUT IV CONTRAST (*per Krishna CARRENO, limited study w/o IV cont)- Prominent inflammatory changes surrounding the pancreas with edematous appearance of the pancreas. This is suggestive of acute pancreatitis. No PD dilitation. Post CCKY with postop CBD 1.3 cm (chronic), no filling defect. Stable ectatic appearance of the left common iliac artery. Normal AP. No hernia. DJD. 02/04/18: US ABDOMEN COMPLETE- 1. Edematous pancreas with peripancreatic fluid, consistent with acute pancreatitis. 2. The pancreatic head and portions of the tail are not visualized. 3. Intra and extrahepatic ductal dilatation is seen. Common bile duct measuring up to 1 cm. Findings may at least in part be related to the patient's postcholecystectomy state with similar appearance seen on older CT scan from 07/11/2017, at which time, no evidence of acute pancreatitis was seen. In the visualized portions of the common bile duct on today's exam, no filling defect is seen. Distal most CBD is, however, not visualized. Close clinical correlation is requested. 4. Status post cholecystectomy. *Unfortunately, no MRCP available at [place] on Tuesdays, prohibiting this on . *The patient was initially most likely felt to have gallstone pancreatitis. His TG were normal. He did bump up his LFTs. *He had no signs or symptoms of cholangitis. The admission CT was somewhat limited without IV contrast. Even so, it showed pancreatic inflammation. Subsequent admission ultrasound showed chronic mild nonspecific dilated CBD & mildly dilated IHD, but apparently, these findings are chronic, post CCKY. However, the elevated LFTs are new. Unfortunately, MRCP was not available at [facility] on Tuesdays, & therefore, could not be obtained on 02/04/18. He appeared somewhat hemoconcentrated on admission, as did his HCT 51.3. *He had 1 grave sign by Kala criteria on admission, namely elevated AST, although no LDH was sent. *He had 0 grave signs by BiSAP criteria on admission, but no CXR was obtained to rule out pleural effusions. ( Limited views of the lung bases on CT AP were clear). He denied EtOH. He is a 30 pk yr cigarette smoker, which is a risk factor for pancreatitis. Surprisingly, 02/05/18: MRCP was negative for choledocholithiasis. The patient has had numerous imaging studies since admission, *including aspirate of right subhepatic fluid collection, performed on 02/20/18, with right sided PICC placed that day, as well. 02/20/18: BF amylase 42, BF cell count could not be done by lab, g stain w/o WBC , with *BF C&S- mod GNR. *As of 02/21/18, the pt was hemodynamically stable, & afebrile, with O2 sat RA 94%. His leukocytosis was improved. There was no hemoconcentration by labs. He was malnourished with 02/20/18: PAB < 3, TG 79 (*TPN rxd). LFTs had normalized except for decreased synthetic function. He still had some abdominal pain, mostly in the RLQ & right flank. He also noted nausea and mild vomiting. He no longer had fevers or chills. He was no longer yellow. *The patient was put on IV Ceftriaxone 02/21/18, for acute pancreatitis with pseudocyst and infected necrosis. *Plans are to try to wait 6-8 weeks until the wall of the pseudocyst matures, prior to considering surgical intervention. * Another option could be eventual drainage via EUS, and will discuss with surgery , although the pt did not appear to be desirous of going to [facility], ? "because of transportation issues, which would arise when he was D/C from there". 02/18/18: nl LFTs xc alb 2.6, glob 2.8 02/20/18: PAB < 3.0 02/21/18: BF C&S- E. Cloacae (*S-Fortaz/Ceftriaxone/Cipro/Gent/Bactrim). 02/22/18: WBC 8.9, H/H 10.3/30.6, PLT 351, BUN/Cr 12/0.7, GFR > 60, Na 130, K 3.8, HCO3 29, AG 5, Mg 2.0, TG 81 *As of 02/22/18, the patient was hemodynamically stable, with Tm 99.5 (98.7), with O2 sat RA 96%. The patient had a panic attack earlier today with anxiety. He remained NPO on TPN. He had some mild nausea with Dilaudid. He was having loose BMs. His right-sided abdominal pain was slowly improving, as well as his leukocytosis. He denied any jaundice, vomiting, or chills. He also noted hiccups for the past few days. He denied any CP, SOB, or pleuritic pain. 02/20: CXR-small pleural effusions and bibasilar atelectasis. *Overall, he appeared to be slowly improving. 02/23/18: 0610- WBC 8.4, H/H 10.5/30.9, MCV 89.5, PLT 346, BUN/Cr 11/0.6, GFR > 60, Na 131, K 3.7, HCO3 29, AG 6, albumin 2.3, globulin 3.3, TBil 0.8/DBil 0.6, alk phos 95, AST 102, ALT 84 (*on TPN) *As of 02/23/18, the patient remained hemodynamically stable, with Tm 99.4 (on Ceftriaxone), & O2 sat RA 96%. + 206.4 mL, w/o hemoconcentration by labs. Overall, he continued to slowly improve. His RLQ pain was better, as was his nausea. He denied any chills, jaundice, vomiting, CP, or SOB. He was ambulating. He remained NPO on TPN with intralipids. He was given Chlorpromazine 25 mg IM x 1 earlier today for his hiccoughs, which helped. 02/24/18: 0545- BUN/Cr 10/0.7, GFR > 60, Na 131, K 3.9, HCO3 28, AG 8, Mg 1.9, Ca 7.4, PO4 3.6, *PAB 3.4, albumin 2.3, globulin 3.2, TBil 0.8, DBil 0.6, alk phos 98, AST 113, ALT 103. *As of 02/24/18, the patient was hemodynamically stable & afebrile, with O2 sat RA 95%. He remained on IV Ceftriaxone for his infected pseudocyst. He remained NPO on TPN with intralipids. The patient still had hiccups, but was not getting the Chlorpromazine. When he did get 1 dose of this, it worked. The pt apparently either "did not like the IM shot", or it "made him sleepy", but I told him it could be given po. His abdominal pain & nausea seemed much improved. He denied any chills or jaundice. He had no new complaints, otherwise. *I discussed the case with Dr. Roach, of surgery. I also spoke with Dr. Vicente at [place] on 02/24/18. *If and when the patient is ready for drainage, the issue would be whether to do this surgically vs. via EUS. Dr. Vicente has drained infected pseudocysts via either the stomach or duodenum (this particular one would require a duodenal approach), & he told me they have a metal stent that has the ability to cauterize into the pseudocyst & then be anchored in place. Usually they can later pull it in a month or so, if the subsequent CT shows improvement. This can be readdressed down the road & was also d/w the pt. 02/25/18: 1020-WBC 7.2 (59S/9B/15L/16M/1E), H/H 10.5/31.0, nl MCV, nl RDW, PLT 329, BUN/Cr 10/0.6, GFR > 60, na 130, K 3.9, HCO3 28, AG 7, Mg 2.0, TG 78 *As of 02/25/18, the patient remained hemodynamically stable with Tm 99.8, with O2 sat RA 96%. He was feeling stronger and ambulating in the hallway. His abdominal pain was improving. His nausea was essentially gone. He had no chills or jaundice. His hiccups were under better control on Chlorpromazine 25 mg po Q6h prn. He remained NPO on TPN with intralipids, on IV Ceftriaxone, *awaiting repeat CT abdomen with pancreatic protocol tomorrow, 02/26/18. A/P: 52 y/o male, acute pancreatitis with infected necrosis, pseudocyst, abdominal pain, hiccoughs (the latter probably from some diaphragmatic irritation), elevated LFTs (*on TPN), malnutrition, anemia, post 01/30/06: CCKY, hx 12/27/15: colostomy reversal/KRISTIN for sigmoid diverticulitis with phlegmon. *SUGGEST: NPO. TPN with intralipids. Bowel rest. Strict I/O's. Serial CBC, *Serial LFTs (* on TPN, which often gives more of a cholestatic picture). Serial lytes, CBC, BUN /Cr, GFR. *Watch for hemoconcentration (i.e.- rising Hgb or BUN) despite IVF/TPN , which would be a poor prognostic sign. IV Zofran. Analgesics. ANGE. IV Protonix 40 mg daily, for GERD. D/C cigarettes (on Nicotine patch 7 mg QD). DVT prophylaxis. *Continue IV Ceftriaxone. *Follow-up with surgery. Continue narcotic analgesics and antiemetics. If hiccoughs worsen, consider repeat CXR. *Continue Chlorpromazine 25 mg po Q6h prn. If patient deteriorates, consider transfer to [facility] for inpatient EUS, but *no need for this at present, as the patient is improving. For repeat CT with pancreatic protocol on 02/26/18, per surgery. *Try to wait 6-8 weeks until the wall of the pseudocyst matures, prior to considering surgical intervention vs. drainage via EUS via duodenal approach (d/w Dr. Roach & Dr. Vicente on 02/24/18). [As an aside, he is due for f/u surveillance colonoscopy in 08/2024] . Further GI recommendations to follow, depending on clinical course. Problem List: 1. Acute pancreatitis with infected necrosis 2. Pseudocyst of pancreas 3. Abdominal pain 4. Hiccoughs 5. Elevated LFTs 6. Malnutrition 7. History of cholecystectomy 8. History of colostomy reversal 9. Diverticulosis of colon 10. Anemia Subjective Subjective: 02/25/18: 1020-WBC 7.2 (59S/9B/15L/16M/1E), H/H 10.5/31.0, nl MCV, nl RDW, PLT 329, BUN/Cr 10/0.6, GFR > 60, na 130, K 3.9, HCO3 28, AG 7, Mg 2.0, TG 78 *As of 02/25/18, the patient remained hemodynamically stable with Tm 99.8, with O2 sat RA 96%. He was feeling stronger and ambulating in the hallway. His abdominal pain was improving. His nausea was essentially gone. He had no chills or jaundice. His hiccups were under better control on Chlorpromazine 25 mg po Q6h prn. He remained NPO on TPN with intralipids, on IV Ceftriaxone, *awaiting repeat CT abdomen with pancreatic protocol tomorrow. Review of Systems: Full 14 point ROS otherwise noncontributory, & as above. Review of Systems Constitutional: Reports: weight loss, as inpt. Denies: chills, diaphoresis, fever, malaise, weakness EENTM: Denies: blurred vision, double vision, visual changes, eye pain, eye drainage, eye tearing, icterus, ear discharge, ear pain, ear redness, hearing changes, nasal congestion, epistaxis, nasal pain, throat pain, throat swelling, mouth pain, tooth pain. Cardiovascular: Denies: chest pain, edema, orthopena, palpitations, peripheral edema, syncope. Respiratory: Denies: cough, hemoptysis, orthopnea, short of breath, sputum production, stridor, wheezing. GI: Reports: abdominal pain-> improving; nausea-> minimal. Occ hiccoughs-> Chlorpromazine. Denies: bloating, vomiting, constipation, diarrhea, distention, bowel incontinence, melena, bloody stool, changes in stool, steatorrhea. Genitourinary: Denies: discharge, dysuria, frequency, hematuria, hesitation, nocturia, pain, urgency. Musculoskeletal: Denies: back pain, gout, joint pain, joint swelling, muscle pain, muscle stiffness, neck pain. Skin: Denies: cysts, change in skin color, change in hair/nails, dryness, erythema, jaundice, lesions, lymphangitis, lumps, moles, rash. Neurological/Psychological: Reports: anxiety, emotional problems. Denies: ataxia, cognitive dysfunction, confusion, depressed, dementia, headache, numbness, paresthesia, pre-existing deficit, petit mal seizures, tingling, tremors, tonic-clonic seizures, unable to move lower ext, unable to move upper ext, weakness, other. Hematologic/Endocrine: Denies: bruising, bleeding, polyuria, polydipsia. Immunologic/Allergic: Denies: splenectomy, HIV/AIDS, lymphadenopathy. All Other Systems: Reviewed and Negative Objective Vital Signs and I&Os Vital Signs Date Time Temp Pulse Resp B/P B/P Pulse O2 O2 Flow FiO2 Mean Ox Delivery Rate 02/25 1459 99.8 84 18 126/79 96 Room Air 02/25 0723 98.9 75 20 110/64 97 02/24 2236 98.7 87 20 125/75 96 Room Air Intake & Output 02/25 1600 02/25 0400 02/24 1600 02/24 0400 02/23 1600 02/23 040 Intake Total 1717.2 667.0 1800.8 465.0 1006.4 643.2 Output Total 2150 540 8292 775 1549 800 Balance -432.8 127.0 425.8 165.0 6.4 -156.8 Intake, IV 50 30 100 30 83.2 Intake, Lipid 200.0 87.0 233.6 75.0 166.4 Intake, Oral 0 0 0 60 Intake, 1467.2 550 1467.2 360 840 500 TPN/PPN Number 0 1 0 Bowel Movements Output, Urine 2150 540 6821 302 5063 800 Patient 200 lb 205 lb 208 lb Weight Weight Bed scale Bed scale Measurement Method Physical Exam: Well-developed, well-nourished male, in NAD, non-toxic appearing. Sclera anicteric. Conjunctiva pink. Oropharynx clear. No oral thrush. No aphthous ulcers. There is no adenopathy, thyromegaly, or JVD. No peripheral stigmata of inflammatory bowel disease or chronic liver disease on exam. No spiders on the anterior chest wall. No gynecomastia. No CVA tenderness. No spine tenderness. Lungs: clear to A&P, with slight decreased BS at bases B/L. No wheezing, rales, or rhonchi. Heart exam: regular rate rhythm, S1 and S2, without any murmur. Abdominal exam: normal bowel sounds, soft belly, less distended, essentially nontender, without guarding or rebound. No mass. No organomegaly. No definite fluid shift. No epigastric bruit. No pulsatile mass. Multiple scars. Digital rectal exam: previously deferred by patient. Extremities: without C, C, or E. No rash. Clean site at [facility]. Mild DJD. No palmar erythema. No Dupuytren's contractures. No palpable cords. Distal pulses 2+ bilaterally. DTRs 2+ bilaterally. Right handed. CN II-XII prev intact. Motor 5/5 B/L. Alert and oriented x 3. No tremor. No asterixis. Current Medications: Current Medications Sig/Oz Start time Last Medication Dose Route Stop Time Status Admin Acetaminophen 650 MG Q4P PRN 02/18 1630 AC 02/22 PO 1505 Alteplase, 2 MG ONE ONE 02/25 0800 DC 02/25 Recombinant IV 02/25 0801 0835 Ceftriaxone Sodium 1,000 MG DAILY 02/21 1014 DC 02/25 IV 0809 Chlorpromazine 25 MG Q6P PRN 02/24 1845 AC 02/25 PO 0250 Fat Emulsion 350 ML 02/25 AC Intravenous IV 02/26 185 Fat Emulsion 350 ML 02/24 190 DC 02/24 Intravenous IV 02/25 185 1911 Gabapentin 300 MG Q8 02/18 1400 AC 02/25 PO 1354 Heparin Sodium 100 UNIT ONCE ONE 02/25 630 DC (Porcine) IV 02/25 06 Heparin Sodium 5,000 UNIT Q8 02/04 06 AC 02/25 (Porcine) SC 1354 Hydromorphone HCl 2 MG Q3P PRN 02/17 1800 AC 02/25 IV 191 Metoclopramide HCl 10 MG Q8 02/23 1400 AC 02/25 IV 1354 Nicotine 7 MG DAILY 02/04 09 AC 02/25 TOP 0809 Omeprazole 40 MG DAILY AC 02/07 0700 AC 02/25 PO 0553 Ondansetron HCl 4 MG Q6P PRN 02/04 0245 AC 02/23 IV 0435 Oxycodone HCl 10 MG Q4P PRN 02/23 1100 AC 02/25 PO 1812 Total Parenteral 1 UNIT 02/25 AC Nutrition IV 02/26 185 Total Parenteral 1 UNIT 02/24 190 DC 02/24 Nutrition IV 02/25 185 191 Results Pertinent Lab Results: Laboratory Tests 02/25 02/24 02/24 1020 0600 0545 Chemistry Sodium (137 - 145 mmol/L) 130 L 131 L Potassium (3.5 - 5.1 mmol/L) 3.9 3.9 Chloride (98 - 107 mmol/L) 95 L 95 L Carbon Dioxide (22 - 30 mmol/L) 28 28 Anion Gap (5 - 16) 7 8 BUN (9 - 20 mg/dL) 10 10 Creatinine (0.7 - 1.2 mg/dL) 0.6 L 0.7 Estimated GFR (>60 ml/min) > 60 > 60 BUN/Creatinine Ratio (7 - 25 %) 16.7 14.3 Calcium (8.4 - 10.2 mg/dL) 7.4 L Phosphorus (2.5 - 4.5 mg/dL) 3.6 Magnesium (1.6 - 2.3 mg/dL) 2.0 1.9 Total Bilirubin (0.2 - 1.3 mg/dL) 0.8 Direct Bilirubin (< 0.4 mg/dL) 0.6 H AST (17 - 59 U/L) 113 H ALT (21 - 72 U/L) 103 H Alkaline Phosphatase (< 127 U/L) 98 Total Protein (6.3 - 8.2 g/dL) 5.5 L Albumin (3.5 - 5.0 g/dL) 2.3 L Prealbumin (17.6 - 36.0 mg/dL) 3.4 L Triglycerides (<150 mg/dL) 78 Hematology CBC w Diff MAN DIFF ORDERED Cancelled WBC (4.8 - 10.8 /CUMM) 7.2 Cancelled RBC (4.70 - 6.10 /CUMM) 3.50 L Cancelled Hgb (14.0 - 18.0 G/DL) 10.5 L Cancelled Hct (42 - 52 %) 31.0 L Cancelled MCV (80.0 - 94.0 FL) 88.6 Cancelled MCH (27.0 - 31.0 PG) 29.9 Cancelled MCHC (33.0 - 37.0 G/DL) 33.8 Cancelled RDW (11.5 - 14.5 %) 14.4 Cancelled Plt Count (130 - 400 /CUMM) 329 Cancelled MPV (7.4 - 10.4 FL) 7.8 Cancelled Gran % (42.2 - 75.2 %) 68.8 Lymphocytes % (20.5 - 51.1 %) 9.6 L Monocytes % (1.7 - 9.3 %) 20.2 H Eosinophils % (0 - 5 %) 1.0 Basophils % (0.0 - 2.0 %) 0.4 Absolute Granulocytes (1.4 - 6.5 /CUMM) 4.9 Segmented Neutrophils (42.2 - 75.2 %) 59 Band Neutrophils (0.0 - 5.0 %) 9 H Absolute Lymphocytes (1.2 - 3.4 /CUMM) 0.7 L Lymphocytes (20.5 - 51.1 %) 15 L Monocytes (1.7 - 9.3 %) 16 H Absolute Monocytes (0.10 - 0.60 /CUMM) 1.4 H Eosinophils (0 - 5.0 %) 1 Absolute Eosinophils (0.0 - 0.7 /CUMM) 0.1 Absolute Basophils (0.0 - 0.2 /CUMM) 0 Platelet Estimate (ADEQUATE) VERIFIED BY SMEAR Normocytic RBCs VERIFIED Normochromic RBCs VERIFIED 02/23 0610 Chemistry Sodium (137 - 145 mmol/L) 131 L Potassium (3.5 - 5.1 mmol/L) 3.7 Chloride (98 - 107 mmol/L) 95 L Carbon Dioxide (22 - 30 mmol/L) 29 Anion Gap (5 - 16) 6 BUN (9 - 20 mg/dL) 11 Creatinine (0.7 - 1.2 mg/dL) 0.6 L Estimated GFR (>60 ml/min) > 60 BUN/Creatinine Ratio (7 - 25 %) 18.3 Total Bilirubin (0.2 - 1.3 mg/dL) 0.8 Direct Bilirubin (< 0.4 mg/dL) 0.6 H AST (17 - 59 U/L) 102 H ALT (21 - 72 U/L) 84 H Alkaline Phosphatase (< 127 U/L) 95 Total Protein (6.3 - 8.2 g/dL) 5.6 L Albumin (3.5 - 5.0 g/dL) 2.3 L Hematology CBC w Diff NO MAN DIFF REQ WBC (4.8 - 10.8 /CUMM) 8.4 RBC (4.70 - 6.10 /CUMM) 3.45 L Hgb (14.0 - 18.0 G/DL) 10.5 L Hct (42 - 52 %) 30.9 L MCV (80.0 - 94.0 FL) 89.5 MCH (27.0 - 31.0 PG) 30.4 MCHC (33.0 - 37.0 G/DL) 34.0 RDW (11.5 - 14.5 %) 14.7 H Plt Count (130 - 400 /CUMM) 346 MPV (7.4 - 10.4 FL) 8.1 Gran % (42.2 - 75.2 %) 80.3 H Lymphocytes % (20.5 - 51.1 %) 5.5 L Monocytes % (1.7 - 9.3 %) 13.3 H Eosinophils % (0 - 5 %) 0.7 Basophils % (0.0 - 2.0 %) 0.2 Absolute Granulocytes (1.4 - 6.5 /CUMM) 6.7 H Absolute Lymphocytes (1.2 - 3.4 /CUMM) 0.5 L Absolute Monocytes (0.10 - 0.60 /CUMM) 1.1 H Absolute Eosinophils (0.0 - 0.7 /CUMM) 0.1 Absolute Basophils (0.0 - 0.2 /CUMM) 0 Imaging/Other Studies: 02/04/18: EKG- SB @ 57, nl axis, IA .20, no ischemic change. 02/04/18: CT ABDOMEN AND PELVIS WITHOUT IV CONTRAST (*per [place] ER, limited study w/o IV cont)- Prominent inflammatory changes surrounding the pancreas with edematous appearance of the pancreas. This is suggestive of acute pancreatitis. No PD dilitation. Post CCKY with postop CBD 1.3 cm (chronic), no filling defect. Stable ectatic appearance of the left common iliac artery. Normal AP. No hernia. DJD. 02/04/18: US ABDOMEN COMPLETE- 1. Edematous pancreas with peripancreatic fluid, consistent with acute pancreatitis. 2. The pancreatic head and portions of the tail are not visualized. 3. Intra and extrahepatic ductal dilatation is seen. Common bile duct measuring up to 1 cm. Findings may at least in part be related to the patient's postcholecystectomy state with similar appearance seen on older CT scan from 07/11/2017, at which time, no evidence of acute pancreatitis was seen. In the visualized portions of the common bile duct on today's exam, no filling defect is seen. Distal most CBD is, however, not visualized. Close clinical correlation is requested. 4. Status post cholecystectomy. *Unfortunately, no MRCP available at [place] on Tuesdays, prohibiting this on . 02/05/18: XRY-CHEST XRAY, TWO VIEWS- No acute cardiopulmonary process. 02/05/18: MR ABDOMEN WITHOUT CONTRAST/MRCP- 1. Acute interstitial pancreatitis is seen with pancreatic parenchymal edema and peripancreatic soft tissue edema and stranding. Associated circumferential wall thickening in the duodenum and proximal jejunum is seen, consistent with sympathetic changes to the pancreatic inflammation. 2. No evidence of variant ductal anatomy. No definite pancreatic head mass seen on noncontrast study. 3. Mild intrahepatic ductal dilatation and moderate extrahepatic ductal dilatation to 1 cm is seen. There is smooth tapering of the common bile duct to 0.4 cm in the preampullary region with no evidence of choledocholithiasis. Findings may be related to the patient's postcholecystectomy state. 4. A few scattered bilateral renal cysts are incidentally seen. 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 Right greater than left bilateral pleural effusions with associated airspace disease. 02/13/18: XRY-CHEST XRAY, TWO VIEWS- Bibasilar subsegmental atelectasis with small right more than left pleural effusions. No dense consolidation. 02/14/18: XRY-PORTABLE CHEST XRAY- Bilateral pleural effusions with bibasilar airspace opacity, consolidation atelectasis. These basilar densities are greater at the right lung base than the left. 02/15/18: [id number] VIEWS- No evidence of free air or air-fluid levels to suggest any perforation or obstruction. No organomegaly. 02/15/18: CT ABD & PELVIS W IV CONTRAST- 1. Similar appearance of the pancreas with diffuse edema without definite areas of necrosis. There are acute peripancreatic fluid collections seen, possibly decreasing since the prior study as detailed above. There is slightly increased organization with thin enhancing mascorro. 2. Right colonic wall thickening and submucosal fat proliferation, new since 11/22/2017. Whether this is representing acute colitis versus reaction to the closely adjacent fluid collections and pancreatitis is unclear. Clinical correlation requested. 3. Other chronic, nonacute findings as above. 02/18/18: XRY-CHEST XRAY, TWO VIEWS- Stable bibasilar airspace disease and small pleural effusions. : CT ABDOMEN WITHOUT AND WITH CONTRAST Unchanged inflammatory process involving the pancreas with peripancreatic fluid collections with one more organized discrete collection on the right abdomen just beneath the liver. *This is the collection for which a request has been made to aspirate tomorrow. The associated right colonic wall thickening and inflammatory changes remain present as well. 02/20/18: *ULTRASOUND-GUIDED ASPIRATION OF A PANCREATIC PSEUDOCYST- Diagnostic aspiration 18 cc light olivo, cloudy fluid, performed of the patient's right upper quadrant, subhepatic pseudocysts under sonographic guidance without evidence of complications. Specimens were sent to the laboratory for C&S, cell count with diff, and amylase as requested. 02/20/18: XRY-PORTABLE CHEST XRAY- (post PCC). The right arm peripherally inserted catheter is in satisfactory position. Persistent small pleural effusions and bibasilar atelectasis.
[2018-02-25 21:35] VITALS: BP 138/77
[2018-02-26 06:31] VITALS: BP 124/74
[2018-02-26 08:18] LABS: ABSOLUTE BASOPHIL COUNT 0 /CUMM (0.0-0.2); ABSOLUTE EOSINOPHIL COUNT 0.1 /CUMM (0.0-0.7); ABSOLUTE GRANULOCYTE CT 6.8 /CUMM (1.4-6.5); ABSOLUTE LYMPH COUNT 0.7 /CUMM (1.2-3.4); ABSOLUTE MONOCYTE COUNT 1.4 /CUMM (0.10-0.60); BASOPHIL % 0.2 % (0.0-2.0); EOSINOPHIL % 1.3 % (0-5); GRANULOCYTE % 75.2 % (42.2-75.2); HEMATOCRIT 30.9 % (42-52); MEAN CORPUSCULAR HGB CONC 34.1 G/DL (33.0-37.0); MEAN CORPUSCULAR VOLUME 87.8 FL (80.0-94.0); MEAN PLATELET VOLUME 8.2 FL (7.4-10.4); PLATELET COUNT 322 /CUMM (130-400); RBC DISTRIBUTION WIDTH 14.8 % (11.5-14.5); RED BLOOD CELL CT 3.52 /CUMM (4.70-6.10); WHITE BLOOD CELL COUNT 9.1 /CUMM (4.8-10.8)
--- NOTE | 2018-02-26 09:45 | PN- Housestaff ---
Subjective Follow-up For: Smoldering Pancreatitis Subjective: seen while ambulating around the [facility] at [facility]. Reports pain better controlled He appears stronger and in no apparent distress compared to previous days. Reports marked improvement with minimal to non nausea episodes/no vomiting. He still [id number] hiccups Afebrile since 02/19. Review of Systems Constitutional: Reports: see HPI. Objective Last 24 Hrs of Vital Signs/I&O Vital Signs Date Time Temp Pulse Resp B/P B/P Pulse O2 O2 Flow FiO2 Mean Ox Delivery Rate 02/26 1437 98.6 74 16 139/88 95 Room Air 02/26 0800 Room Air 02/26 0631 98.9 76 20 124/74 97 Room Air 02/25 2135 99.7 83 19 138/77 97 Room Air Intake & Output 02/26 1600 02/26 0800 02/26 0000 Intake Total 1050.4 911.0 Output Total 950 825 900 Balance 100.4 86.0 -900 Intake, IV 200 Intake, Lipid 116.8 117.0 Intake, Oral 60 Intake, 733.6 734 TPN/PPN Output, Urine 950 825 900 Patient 88.224 kg Weight Physical Exam General Appearance: Alert, Oriented X3, Cooperative Skin: No Significant Lesion Lymphatic: Cervical nl Cardiovascular: Regular Rate, Normal S1, Normal S2 Lungs: Clear to Auscultation, Normal Air Movement Abdomen: Normal Bowel Sounds, Soft, No Tenderness Assessment/Plan Problem List: 1. Pancreatitis, acute Pain Ratin Pain Location: abdomen Pain Goal: Remain pain free Pain Plan: per pathway Tomorrow's Labs & Rationales: cbc bep
--- NOTE | 2018-02-26 12:44 | PN- General Surgery ---
Subjective Subjective: pain improved. hiccups better. nauseated after CT scan. eager to eat. Objective Vital Signs and I&Os Vital Signs Date Time Temp Pulse Resp B/P B/P Pulse O2 O2 Flow FiO2 Mean Ox Delivery Rate 02/26 08 Room Air 02/26 0631 98.9 76 20 124/74 97 Room Air 02/25 2135 99.7 83 19 138/77 97 Room Air 02/25 1459 99.8 84 18 126/79 96 Room Air Intake & Output 02/26 0000 02/25 1600 02/25 0000 Intake Total 911.0 816.8 900.4 667.0 Output Total 450 825 529 357 3697 540 Balance -450 86.0 -900 66.8 -499.6 127.0 Intake, IV 50 30 Intake, Lipid 117.0 83.2 116.8 87.0 Intake, Oral 60 0 0 Intake, 734 733.6 733.6 550 TPN/PPN Number 0 Bowel Movements Output, Urine 450 825 052 107 8513 540 Patient 195 lb 200 lb Weight Weight Bed scale Measurement Method Physical Exam: gen; looks well. nad. overwieght heent; anucteric, perrl eomi abdomen; soft, nt, nd. no mass no hernia Current Medications: Current Medications Sig/Oz Start time Last Medication Dose Route Stop Time Status Admin Acetaminophen 650 MG Q4P PRN 02/18 1630 AC 02/22 PO 1505 Ceftriaxone Sodium 1,000 MG Q24H 02/26 1000 AC 02/26 IV 1034 Chlorpromazine 25 MG Q6P PRN 02/24 1845 AC 02/25 PO 0250 Fat Emulsion 500 ML Q24H 02/26 1900 AC Intravenous IV 02/27 1859 Fat Emulsion 350 ML 1900 02/25 1900 AC 02/25 Intravenous IV 02/26 185 2034 Fat Emulsion 350 ML 02/24 190 DC 02/24 Intravenous IV 02/25 185 1911 Gabapentin 300 MG Q8 02/18 1400 AC 02/26 PO 0536 Heparin Sodium 5,000 UNIT Q8 02/04 0600 AC 02/26 (Porcine) SC 0536 Hydromorphone HCl 2 MG Q3P PRN 02/17 1800 AC 02/26 IV 1209 Metoclopramide HCl 10 MG Q8 02/23 1400 AC 02/26 IV 0536 Nicotine 7 MG DAILY 02/04 0900 AC 02/25 TOP 0809 Omeprazole 40 MG DAILY AC 02/07 0700 AC 02/26 PO 0536 Ondansetron HCl 4 MG Q6P PRN 02/04 0245 AC 02/26 IV 1209 Oxycodone HCl 10 MG Q4P PRN 02/23 1100 AC 02/26 PO 1034 Sodium Chloride 1,000 ML ONCE ONE 02/26 0945 AC 02/26 IV 02/26 194 1035 Total Parenteral 1 UNIT ONE 02/26 1900 AC Nutrition IV 02/27 1859 Total Parenteral 1 UNIT 1900 02/25 190 AC 02/25 Nutrition IV 02/26 Total Parenteral 1 UNIT 02/24 190 DC 02/24 Nutrition IV 02/25 Results Last 48 Hours of Labs: Laboratory Tests 02/26 02/25 0542 1020 Chemistry Sodium (137 - 145 mmol/L) 129 L 130 L Potassium (3.5 - 5.1 mmol/L) 4.3 3.9 Chloride (98 - 107 mmol/L) 94 L 95 L Carbon Dioxide (22 - 30 mmol/L) 27 28 Anion Gap (5 - 16) 8 7 BUN (9 - 20 mg/dL) 11 10 Creatinine (0.7 - 1.2 mg/dL) 0.6 L 0.6 L Estimated GFR (>60 ml/min) > 60 > 60 BUN/Creatinine Ratio (7 - 25 %) 18.3 16.7 Magnesium (1.6 - 2.3 mg/dL) 2.0 Triglycerides (<150 mg/dL) 78 Hematology CBC w Diff NO MAN DIFF REQ MAN DIFF ORDERED WBC (4.8 - 10.8 /CUMM) 9.1 7.2 RBC (4.70 - 6.10 /CUMM) 3.52 L 3.50 L Hgb (14.0 - 18.0 G/DL) 10.5 L 10.5 L Hct (42 - 52 %) 30.9 L 31.0 L MCV (80.0 - 94.0 FL) 87.8 88.6 MCH (27.0 - 31.0 PG) 30.0 29.9 MCHC (33.0 - 37.0 G/DL) 34.1 33.8 RDW (11.5 - 14.5 %) 14.8 H 14.4 Plt Count (130 - 400 /CUMM) 322 329 MPV (7.4 - 10.4 FL) 8.2 7.8 Gran % (42.2 - 75.2 %) 75.2 68.8 Lymphocytes % (20.5 - 51.1 %) 7.3 L 9.6 L Monocytes % (1.7 - 9.3 %) 16.0 H 20.2 H Eosinophils % (0 - 5 %) 1.3 1.0 Basophils % (0.0 - 2.0 %) 0.2 0.4 Absolute Granulocytes (1.4 - 6.5 /CUMM) 6.8 H 4.9 Segmented Neutrophils (42.2 - 75.2 %) 59 Band Neutrophils (0.0 - 5.0 %) 9 H Absolute Lymphocytes (1.2 - 3.4 /CUMM) 0.7 L 0.7 L Lymphocytes (20.5 - 51.1 %) 15 L Monocytes (1.7 - 9.3 %) 16 H Absolute Monocytes (0.10 - 0.60 /CUMM) 1.4 H 1.4 H Eosinophils (0 - 5.0 %) 1 Absolute Eosinophils (0.0 - 0.7 /CUMM) 0.1 0.1 Absolute Basophils (0.0 - 0.2 /CUMM) 0 0 Platelet Estimate (ADEQUATE) VERIFIED BY SMEAR Normocytic RBCs VERIFIED Normochromic RBCs VERIFIED Recent Imaging Studies: CT scan pancreatic protocol from today was personally viewed. The report is not formally dictated. From my interpretation there has been no worsening of the pseudocyst nor is there concern for worsening infectious process. Assessment/Plan Assessment/Plan Stable size of infected pancreatic pseudocyst. No intervention necessary. Recommend continue npo, tpn, iv abx. reassess suitability for oral intake each day. would wait until pain, nausea and hiccups resolve.
[2018-02-26 14:37] VITALS: BP 139/88
--- NOTE | 2018-02-26 15:21 | CT SCAN REPORT ---
EXAMINATION: CT ABDOMEN WITHOUT AND WITH CONTRAST CLINICAL INFORMATION: Pancreatitis follow-up. Abdominal pain. COMPARISON: CT scans of the abdomen and pelvis 02/15/[address] scan of the abdomen 02/19/2018. TECHNIQUE: Contiguous axial thin section helical images of the abdomen were performed before and after the administration of 95 mL Optiray 320 intravenous contrast. The data set was reformatted in the coronal and sagittal planes and reviewed on an independent workstation. DLP: 1281.34 mGy-cm FINDINGS: LUNG BASES: There has been slight decrease in the right pleural effusion. The left pleural effusion has almost completely resolved. The atelectasis at the bases bilaterally. LIVER, GALLBLADDER, AND BILIARY TREE: The liver is normal in size, shape, and attenuation. There are no focal hepatic lesions. The intrahepatic ducts are mildly dilated, unchanged. There are sequelae of prior cholecystectomy. PANCREAS: The study redemonstrates the edematous pancreas. There are more discrete peripancreatic fluid collections along the anterior and superior aspect of the body and tail, and there is increased density in the peripancreatic fat. The pancreatic parenchyma appears more edematous compared to prior imaging. The previously noted discrete fluid collection with a focus of air along the ventral pancreatic head is no longer discretely visualized. The study redemonstrates loculated fluid in the right abdomen extending inferiorly and posteriorly. The fluid collection extends posterior to the right psoas muscle, better demonstrated on the current study due to technique. Mild inflammatory changes are noted around the large bowel in the region. SPLEEN: The spleen is mildly prominent, increased, and now measuring 15.2 cm craniocaudally. ADRENAL GLANDS: Unremarkable. KIDNEYS AND URETERS: The kidneys are normal in size, shape, and attenuation. There are multiple areas of low attenuation in the kidneys bilaterally consistent with cysts. No hydronephrosis, hydroureter, or calculi seen. There is a minimal amount of edema anterior to the renal fascia bilaterally. There is no extensive perinephric stranding. GASTROINTESTINAL TRACT: The stomach is decompressed. The loops of small bowel are not distended. Fluid is noted within the loops of small bowel. The cecum and appendix are not discretely identified on the available images. As described above there are inflammatory changes around the ascending colon. ABDOMINAL WALL: There has been no significant interval change in the anasarca in the bilateral abdominal mascorro, more extensive on the right than the left. LYMPH NODES: Increased density in the root of the mesentery is most consistent with fluid. There are multiple small mesenteric lymph nodes. These are likely better visualized due to inclusion of the upper pelvic structures. VASCULAR: There are atheromatous calcifications of the aorta and its branches. No aneurysms are demonstrated. Flow is demonstrated in the portal vein. There is slight irregularity of the splenic vein, but flow is noted within it. OSSEOUS STRUCTURES: There are moderate spondylitic changes in the lower thoracic spine. IMPRESSION: 1. There is increased peripancreatic fluid and soft tissue density compared to the prior study. The pancreatic parenchyma has lower attenuation compared to prior imaging, which may be consistent with evolving necrotic changes. 2. The discrete fluid collection along the ventral head of the pancreas is no longer visualized. There is extensive loculated fluid in the right abdomen extending inferiorly and posterior to the right psoas muscle, not significantly changed compared to the most recent prior study. 3. Flow is demonstrated in the splenic and portal veins. 4. Anasarca in the abdominal mascorro appears similar compared to prior imaging.
--- NOTE | 2018-02-26 16:35 | PN- Att Addend ---
Attending Addendum Attending Brief Note No new complaints. Patient seems comfortable. Vital signs are stable temperature max 99 7. No major changes on physical. Patient went for other ultrasound will check results. Then will get surgical input to see what the next step is. White count 9.1. Intake & Output 02/26 1600 02/26 0400 02/25 1600 02/25 0400 02/24 1600 02/24 0400 Intake Total 1961.4 1717.2 667.0 1800.8 465.0 Output Total 1550 1125 2150 540 1375 300 Balance 411.4 -1125 -432.8 127.0 425.8 165.0 Intake, IV 200 50 30 100 30 Intake, Lipid 233.8 200.0 87.0 233.6 75.0 Intake, Oral 60 0 0 0 Intake, 1467.6 1467.2 550 1467.2 360 TPN/PPN Number 0 1 0 Bowel Movements Output, Urine 1550 1125 2150 540 1375 300 Patient 195 lb 200 lb 205 lb Weight Weight Bed scale Measurement Method Current Medications Sig/Oz Start time Last Medication Dose Route Stop Time Status Admin Acetaminophen 650 MG Q4P PRN 02/18 1630 AC 02/22 PO 1505 Ceftriaxone Sodium 1,000 MG Q24H 02/26 1000 AC 02/26 IV 1034 Chlorpromazine 25 MG Q6P PRN 02/24 1845 AC 02/26 PO 1617 Fat Emulsion 500 ML Q24H 02/26 1900 AC Intravenous IV 02/27 1859 Fat Emulsion 350 ML 1900 02/25 1900 AC 02/25 Intravenous IV 02/26 1859 2034 Fat Emulsion 350 ML 1900 02/24 1900 DC 02/24 Intravenous IV 02/25 1859 1911 Gabapentin 300 MG Q8 02/18 1400 AC 02/26 PO 1432 Heparin Sodium 5,000 UNIT Q8 02/04 0600 AC 02/26 (Porcine) SC 1432 Hydromorphone HCl 2 MG Q3P PRN 02/17 1800 AC 02/26 IV 1612 Metoclopramide HCl 10 MG Q8 02/23 1400 AC 02/26 IV 1432 Nicotine 7 MG DAILY 02/04 09 AC 02/25 TOP 0809 Omeprazole 40 MG DAILY AC 02/07 0700 AC 02/26 PO 0536 Ondansetron HCl 4 MG Q6P PRN 02/04 0245 AC 02/26 IV 1209 Oxycodone HCl 10 MG Q4P PRN 02/23 1100 AC 02/26 PO 1432 Sodium Chloride 1,000 ML ONCE ONE 02/26 945 AC 02/26 IV 02/27 1944 1035 Total Parenteral 1 UNIT ONE 02/26 1900 AC Nutrition IV 02/27 1859 Total Parenteral 1 UNIT 02/25 AC 02/25 Nutrition IV 02/26 Total Parenteral 1 UNIT 02/24 DC 02/24 Nutrition IV 02/25 Laboratory Tests 02/26/18 0542: Anion Gap 8, Estimated GFR > 60, BUN/Creatinine Ratio 18.3, CBC w Diff NO MAN DIFF REQ, RBC 3.52 L, MCV 87.8, MCH 30.0, MCHC 34.1, RDW 14.8 H, MPV 8.2, Gran % 75.2, Lymphocytes % 7.3 L, Monocytes % 16.0 H, Eosinophils % 1.3, Basophils % 0.2, Absolute Granulocytes 6.8 H, Absolute Lymphocytes 0.7 L, Absolute Monocytes 1.4 H, Absolute Eosinophils 0.1, Absolute Basophils 0 02/25/18 1020: Anion Gap 7, Estimated GFR > 60, BUN/Creatinine Ratio 16.7, Magnesium 2.0, Triglycerides 78, CBC w Diff MAN DIFF ORDERED, RBC 3.50 L, MCV 88.6, MCH 29.9, MCHC 33.8, RDW 14.4, MPV 7.8, Gran % 68.8, Lymphocytes % 9.6 L, Monocytes % 20.2 H, Eosinophils % 1.0, Basophils % 0.4, Absolute Granulocytes 4.9, Segmented Neutrophils 59, Band Neutrophils 9 H, Absolute Lymphocytes 0.7 L, Lymphocytes 15 L, Monocytes 16 H, Absolute Monocytes 1.4 H, Eosinophils 1, Absolute Eosinophils 0.1, Absolute Basophils 0, Platelet Estimate VERIFIED BY SMEAR, Normocytic RBCs VERIFIED, Normochromic RBCs VERIFIED 02/24/18 0600: CBC w Diff Cancelled, WBC Cancelled, RBC Cancelled, Hgb Cancelled, Hct Cancelled , MCV Cancelled, MCH Cancelled, MCHC Cancelled, RDW Cancelled, Plt Count Cancelled, MPV Cancelled 02/24/18 0545: Anion Gap 8, Estimated GFR > 60, BUN/Creatinine Ratio 14.3, Calcium 7.4 L, Phosphorus 3.6, Magnesium 1.9, Total Bilirubin 0.8, Direct Bilirubin 0.6 H, AST 113 H, ALT 103 H, Alkaline Phosphatase 98, Total Protein 5.5 L, Albumin 2.3 L, Prealbumin 3.4 L Vital Signs Date Time Temp Pulse Resp B/P B/P Pulse O2 O2 Flow FiO2 Mean Ox Delivery Rate 02/26 1437 98.6 74 16 139/88 95 Room Air 02/26 0800 Room Air 02/26 0631 98.9 76 20 124/74 97 Room Air 02/25 2135 99.7 83 19 138/77 97 Room Air
--- NOTE | 2018-02-26 18:10 | PN- Gastroenterology ---
Assessment/Plan GI Assessment/Recommendations: *Please refer to my initial inpt GI consultation of 02/04/18. I assumed the weekly inpatient GI service from Dr. Jenae Ardon on 02/21/18. Extensive records reviewed). 52 y/o male, HTN, non-DM, renal stones post ESWL, smoker, hx GERD, anxiety, 02/27: CCKY for biliary colic (path: chronic cholecystitis, cholesterolosis, & cholelithiasis), hx diverticulosis coli, post 09/05/15: Ppipa's procedure for sigmoid diverticulitis with phlegmon, f/b 12/27/15: reversal of colostomy, KRISTIN, reinforcement of midline fascia with mesh. This was followed by 08/14/16: open mesh repair of ventral incisional hernia, along with bilateral advancement rectus muscular fascial flap reconstruction, all per Dr. Cordon. He also has hx gout & had numerous orthopedic procedures, including right rotator cuff surgery, & left elbow ulnar surgery. *He had a chronic pain syndrome in the right flank. 03/15/06: EGD/colonoscopy (purged) gastric bxs unremarkable, H. pylori negative; bxs GEJ- benign inflammation, without Collier's esophagus. 09/06/14: Combined baseline upper endoscopy to the third portion of the duodenum with biopsies, plus follow up colonoscopy to the terminal ileum with biopsies (*done for GERD & chronic vague right-sided abdominal sx, requiring multiple ER visits & OV with the GI COLD HEADER)- ? mild gastroparesis with bile cleared from proximal stomach, random bxs D2/D3- neg, random bx antrum- mild CAG, HP-neg, bx inflamed cardia- mild CFG , HP-neg, 2 cm HH, random bxs distal esophagus at 42 cm/Z line & at 39 cm- nl esophageal mucosa, neg EOE; mod L tics, focal sigmoid erythema from 25-30 cm in midst of tics-colonic mucosa with focal hyperplastic change & hemorrhage, random bxs of TI, right colon, left colon, & rectum- all neg. (The pt was rxd Nexium 40 mg daily then) He was due for f/u surveillance colonoscopy x 10 yrs (avg risk) = 08/2024. He was told if inc sx, to consider GES (which he never had), TFT with TSH, HgbA1C, celiac panel, etc. He was then seen in inpatient GI consultation 04/22/[address] Sprague for sigmoid diverticulitis, txd with antibiotics. He ultimately then had 09/05/15: Pippa 's procedure, followed by 12/27/15: reversal of colostomy/KRISTIN & 08/14/16: open mesh repair of ventral incisional hernia, as above. He was most recently seen in inpatient GI consultation by Dr. Jenae Ardon , for chronic progressive vague right-sided abdominal/right flank pain, which was somewhat positional in nature. This was felt to have a neuropathic quality. History, exam, and imaging did not show any acute intra-abdominal or retroperitoneal process. He had a minimally elevated lipase then which was felt to be nonspecific. There was no clinical evidence of pancreatitis. A radicular process vs. zoster was considered, & he was rxd ANGE & Valacyclovir. A Lyme titer then was negative, although he did get a 10 day course of Doxycyline. Since 1 PM on 02/03/18, the patient noted nausea, vomiting, diarrhea, and intermittent, severe intense, abdominal pain, described as "someone beating the hell out of my stomach". It was localized to the periumbilical region, radiating suprapubically and epigastrically. Initially, the pain was "3 out of 10", then became "10 out of 10" and constant in nature. He took Iliana-Bixby, without relief. He arrived at the [facility] 02/04/18 at 12:14 a.m. for the above, at which point, he was HTN, with BP 218/97, P 57, R 22, T 97.5, O2 sat RA 100%. He was initially in tears from the pain. 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 The vomitus initially showed partially digested food, but then became clear, non-bloody, non-bilious. He had chronic GERD, for which he took Tums prn. He was not on longstanding PPI. He denied any odynophagia or dysphagia. He denied using any NSAIDS, thiazides, or Sulfa meds. He denied any hematemesis, melena, or BRBPR. He denied any EtOH, transfusions, IVDA, HIV, or hx viral hepatitis. He denied any definite jaundice, dark urine, light stools, pruritus, or confusion. He denied any fevers, chills, night sweats, CP, SOB, symptoms of UTI or URI. There was no abdominal trauma. His appetite was fair, since his multiple abdominal surgeries a few years ago. He denied any early satiety. His weight had been stable for the past 2 years, but he stated that he was previously obese & lost > 100 lbs a few years ago, in the midst of tx of his divericulitis. There is no FHx GI Ca, GI disease, inherited pancreatitis, or inherited liver disease. He was found to have newly elevated LFTs & elevated lipase (*see labs). 11/24/17: minimal lipase 401, with nl LFTs. 02/04/18: 0116- Admission labs-WBC 11.5 (92% gran/11 gran Ab), H/H 18/51.3, MCV 90, RDW 13.9, PLT 137, glucose 125, BUN/CR 16/1.1, GFR > 60, Na 141, K 4.0, HCO3 23, AG 14, Ca 10.1, amylase 3643, lipase > 10K, albumin 4.7, globulin 3.9, Tbil 2.3, DBil 1.4, alk phos 196, AST 266, ALT 219, troponin < 0.01; (no U/A or PT/ PTT). 02/04/18: 0246- *TG 101, [EtOH] < 10. 02/04/18: EKG- SB @ 57, nl axis, PA .20, no ischemic change. 02/04/18: CT ABDOMEN AND PELVIS WITHOUT IV CONTRAST (*per Krishna CARRENO, limited study w/o IV cont)- Prominent inflammatory changes surrounding the pancreas with edematous appearance of the pancreas. This is suggestive of acute pancreatitis. No PD dilitation. Post CCKY with postop CBD 1.3 cm (chronic), no filling defect. Stable ectatic appearance of the left common iliac artery. Normal AP. No hernia. DJD. 02/04/18: US ABDOMEN COMPLETE- 1. Edematous pancreas with peripancreatic fluid, consistent with acute pancreatitis. 2. The pancreatic head and portions of the tail are not visualized. 3. Intra and extrahepatic ductal dilatation is seen. Common bile duct measuring up to 1 cm. Findings may at least in part be related to the patient's postcholecystectomy state with similar appearance seen on older CT scan from 07/11/2017, at which time, no evidence of acute pancreatitis was seen. In the visualized portions of the common bile duct on today's exam, no filling defect is seen. Distal most CBD is, however, not visualized. Close clinical correlation is requested. 4. Status post cholecystectomy. *Unfortunately, no MRCP available at [place] on Tuesdays, prohibiting this on . *The patient was initially most likely felt to have gallstone pancreatitis. His TG were normal. He did bump up his LFTs. *He had no signs or symptoms of cholangitis. The admission CT was somewhat limited without IV contrast. Even so, it showed pancreatic inflammation. Subsequent admission ultrasound showed chronic mild nonspecific dilated CBD & mildly dilated IHD, but apparently, these findings are chronic, post CCKY. However, the elevated LFTs are new. Unfortunately, MRCP was not available at [facility] on Tuesdays, & therefore, could not be obtained on 02/04/18. He appeared somewhat hemoconcentrated on admission, as did his HCT 51.3. *He had 1 grave sign by Kala criteria on admission, namely elevated AST, although no LDH was sent. *He had 0 grave signs by BiSAP criteria on admission, but no CXR was obtained to rule out pleural effusions. ( Limited views of the lung bases on CT AP were clear). He denied EtOH. He is a 30 pk yr cigarette smoker, which is a risk factor for pancreatitis. Surprisingly, 02/05/18: MRCP was negative for choledocholithiasis. The patient has had numerous imaging studies since admission, *including aspirate of right subhepatic fluid collection, performed on 02/20/18, with right sided PICC placed that day, as well. 02/20/18: BF amylase 42, BF cell count could not be done by lab, g stain w/o WBC , with *BF C&S- mod GNR. *As of 02/21/18, the pt was hemodynamically stable, & afebrile, with O2 sat RA 94%. His leukocytosis was improved. There was no hemoconcentration by labs. He was malnourished with 02/20/18: PAB < 3, TG 79 (*TPN rxd). LFTs had normalized except for decreased synthetic function. He still had some abdominal pain, mostly in the RLQ & right flank. He also noted nausea and mild vomiting. He no longer had fevers or chills. He was no longer yellow. *The patient was put on IV Ceftriaxone 02/21/18, for acute pancreatitis with pseudocyst and infected necrosis. *Plans are to try to wait 6-8 weeks until the wall of the pseudocyst matures, prior to considering surgical intervention. * Another option could be eventual drainage via EUS, and will discuss with surgery , although the pt did not appear to be desirous of going to [facility], ? "because of transportation issues, which would arise when he was D/C from there". 02/18/18: nl LFTs xc alb 2.6, glob 2.8 02/20/18: PAB < 3.0 02/21/18: BF C&S- E. Cloacae (*S-Fortaz/Ceftriaxone/Cipro/Gent/Bactrim). 02/22/18: WBC 8.9, H/H 10.3/30.6, PLT 351, BUN/Cr 12/0.7, GFR > 60, Na 130, K 3.8, HCO3 29, AG 5, Mg 2.0, TG 81 *As of 02/22/18, the patient was hemodynamically stable, with Tm 99.5 (98.7), with O2 sat RA 96%. The patient had a panic attack earlier today with anxiety. He remained NPO on TPN. He had some mild nausea with Dilaudid. He was having loose BMs. His right-sided abdominal pain was slowly improving, as well as his leukocytosis. He denied any jaundice, vomiting, or chills. He also noted hiccups for the past few days. He denied any CP, SOB, or pleuritic pain. 02/20: CXR-small pleural effusions and bibasilar atelectasis. *Overall, he appeared to be slowly improving. 09/02/18: 0610- WBC 8.4, H/H 10.5/30.9, MCV 89.5, PLT 346, BUN/Cr 11/0.6, GFR > 60, Na 131, K 3.7, HCO3 29, AG 6, albumin 2.3, globulin 3.3, TBil 0.8/DBil 0.6, alk phos 95, AST 102, ALT 84 (*on TPN) *As of 02/23/18, the patient remained hemodynamically stable, with Tm 99.4 (on Ceftriaxone), & O2 sat RA 96%. + 206.4 mL, w/o hemoconcentration by labs. Overall, he continued to slowly improve. His RLQ pain was better, as was his nausea. He denied any chills, jaundice, vomiting, CP, or SOB. He was ambulating. He remained NPO on TPN with intralipids. He was given Chlorpromazine 25 mg IM x 1 earlier today for his hiccoughs, which helped. 02/24/18: 0545- BUN/Cr 10/0.7, GFR > 60, Na 131, K 3.9, HCO3 28, AG 8, Mg 1.9, Ca 7.4, PO4 3.6, *PAB 3.4, albumin 2.3, globulin 3.2, TBil 0.8, DBil 0.6, alk phos 98, AST 113, ALT 103. *As of 02/24/18, the patient was hemodynamically stable & afebrile, with O2 sat RA 95%. He remained on IV Ceftriaxone for his infected pseudocyst. He remained NPO on TPN with intralipids. The patient still had hiccups, but was not getting the Chlorpromazine. When he did get 1 dose of this, it worked. The pt apparently either "did not like the IM shot", or it "made him sleepy", but I told him it could be given po. His abdominal pain & nausea seemed much improved. He denied any chills or jaundice. He had no new complaints, otherwise. *I discussed the case with Dr. Roach, of surgery. I also spoke with Dr. Vicente at [place] on 02/24/18. *If and when the patient is ready for drainage, the issue would be whether to do this surgically vs. via EUS. Dr. Vicente has drained infected pseudocysts via either the stomach or duodenum (this particular one would require a duodenal approach), & he told me they have a metal stent that has the ability to cauterize into the pseudocyst & then be anchored in place. Usually they can later pull it in a month or so, if the subsequent CT shows improvement. This can be readdressed down the road & was also d/w the pt. 02/25/18: 1020-WBC 7.2 (59S/9B/15L/16M/1E), H/H 10.5/31.0, nl MCV, nl RDW, PLT 329, BUN/Cr 10/0.6, GFR > 60, na 130, K 3.9, HCO3 28, AG 7, Mg 2.0, TG 78 *As of 02/25/18, the patient remained hemodynamically stable with Tm 99.8, with O2 sat RA 96%. He was feeling stronger and ambulating in the hallway. His abdominal pain was improving. His nausea was essentially gone. He had no chills or jaundice. His hiccups were under better control on Chlorpromazine 25 mg po Q6h prn. He remained NPO on TPN with intralipids, on IV Ceftriaxone, *awaiting repeat CT abdomen with pancreatic protocol tomorrow, 02/26/18. 02/26/18: CT ABDOMEN WITHOUT AND WITH IV CONTRAST (personally reviewed by myself with Dr. Lombardi, of [facility], on 02/26/18 at 6:25 p.m.)- IMPRESSION: 1. There is increased peripancreatic fluid and soft tissue density compared to the prior study. The pancreatic parenchyma has lower attenuation compared to prior imaging, which may be consistent with evolving necrotic changes. 2. The discrete fluid collection along the ventral head of the pancreas is no longer visualized. There is extensive loculated fluid in the right abdomen extending inferiorly and posterior to the right psoas muscle, not significantly changed compared to the most recent prior study. 3. Flow is demonstrated in the splenic and portal veins. 4. Anasarca in the abdominal mascorro appears similar compared to prior imaging. DICTATED BY: Daryn Tucker MD (According to Dr. Lombardi, the RUQ pseudocyst drained by IR 02/20/18 had completely resolved, but per my review with Dr. Roach on 02/26/18, it appeared to persist. Extensive fluid in right paracolic gutter & anasarca, without change. Also, lower attenuation of pancreatic parenchyma, with possible evolving necrotic changes. 02/26/18: WBC 9.1, H/H 10.5/30.9, PLT 322, BUN/Cr 11/0.6, GFR > 60, Na 129, K 4.3, HCO3 27, AG 8 *As of 02/26/18, the patient remained hemodynamically stable & afebrile (Tm 99.7 yesterday p.m.), on IV Ceftriaxone. He remained NPO on TPN with intralipids. His abdominal pain and nausea were essentially gone. He denied any jaundice or chills. He had some scant hiccups. His appetite was slowly returning. A/P: 52 y/o male, acute pancreatitis with infected necrosis-> (drained ; last CT 02/26/18), pseudocyst, abdominal pain, hiccoughs (the latter probably from some diaphragmatic irritation), elevated LFTs (*on TPN-> *AST/ALT possibly from Ceftriaxone), malnutrition, anemia, post 01/30/06: CCKY, hx 12/27/15: colostomy reversal/KRISTIN for sigmoid diverticulitis with phlegmon. *SUGGEST: NPO. TPN with intralipids. Bowel rest. Strict I/O's. Serial CBC, *Serial LFTs (* on TPN, which often gives more of a cholestatic picture-> *AST/ALT could be from Ceftriaxone). Serial lytes, CBC, BUN/Cr, GFR. *Watch for hemoconcentration (i.e. - rising Hgb or BUN) despite IVF/TPN, which would be a poor prognostic sign. IV Zofran. Analgesics. ANGE. IV Protonix 40 mg daily, for GERD. D/C cigarettes (on Nicotine patch 7 mg QD). DVT prophylaxis. *Continue IV Ceftriaxone for now, although the E. Cloacae is S-Cipro, which has excellent pancreatic penetration ( *consider switching to this, if AST/ALT continue to rise). *Follow-up with surgery. Continue narcotic analgesics and antiemetics. If hiccoughs worsen, consider repeat CXR. *Continue Chlorpromazine 25 mg po Q6h prn. If patient deteriorates, consider transfer to [facility] for inpatient EUS, but *no need for this at present, as the patient is improving.*Hopefully, if the pt continues to clinically improve, can try sips of clears in a few days. *Try to wait 6-8 weeks until the wall of the pseudocyst matures, prior to considering surgical intervention vs. drainage via EUS via duodenal approach (d/w Dr. Roach & Dr. Vicente of [facility], on 02/24/18). [As an aside, he is due for f/u surveillance colonoscopy in 08/2024]. Further GI recommendations to follow, depending on clinical course. Problem List: 1. Acute pancreatitis with infected necrosis 2. Pseudocyst of pancreas 3. Abdominal pain 4. Hiccoughs 5. Elevated LFTs 6. Malnutrition 7. History of cholecystectomy 8. History of colostomy reversal 9. Diverticulosis of colon 10. Anemia Subjective Subjective: 02/26/18: CT ABDOMEN WITHOUT AND WITH IV CONTRAST (personally reviewed by myself with Dr. Lombardi, of [facility], on 02/26/18 at 6:25 p.m.)- IMPRESSION: 1. There is increased peripancreatic fluid and soft tissue density compared to the prior study. The pancreatic parenchyma has lower attenuation compared to prior imaging, which may be consistent with evolving necrotic changes. 2. The discrete fluid collection along the ventral head of the pancreas is no longer visualized. There is extensive loculated fluid in the right abdomen extending inferiorly and posterior to the right psoas muscle, not significantly changed compared to the most recent prior study. 3. Flow is demonstrated in the splenic and portal veins. 4. Anasarca in the abdominal mascorro appears similar compared to prior imaging. DICTATED BY: Daryn Tucker MD (According to Dr. Lombardi, the RUQ pseudocyst drained by IR 02/20/18 had completely resolved, but per my review with Dr. Roach 02/26/18, it appeared to persist. Extensive fluid in right paracolic gutter & anasarca, without change. Also, lower attenuation of pancreatic parenchyma, with possible evolving necrotic changes. 02/26/18: WBC 9.1, H/H 10.5/30.9, PLT 322, BUN/Cr 11/0.6, GFR > 60, Na 129, K 4.3, HCO3 27, AG 8 *As of 02/26/18, the patient remained hemodynamically stable & afebrile (Tm 99.7 yesterday p.m.), on IV Ceftriaxone. He remained NPO on TPN with intralipids. His abdominal pain and nausea were essentially gone. He denied any jaundice or chills. He had some scant hiccups. His appetite was slowly returning. Review of Systems: Full 14 point ROS otherwise noncontributory, & as above. Review of Systems Constitutional: Reports: weight loss, as inpt. Denies: chills, diaphoresis, fever, malaise, weakness EENTM: Denies: blurred vision, double vision, visual changes, eye pain, eye drainage, eye tearing, icterus, ear discharge, ear pain, ear redness, hearing changes, nasal congestion, epistaxis, nasal pain, throat pain, throat swelling, mouth pain, tooth pain. Cardiovascular: Denies: chest pain, edema, orthopena, palpitations, peripheral edema, syncope. Respiratory: Denies: cough, hemoptysis, orthopnea, short of breath, sputum production, stridor, wheezing. GI: Reports: abdominal pain-> mostly gone; nausea-> mostly gone. Occ hiccoughs (mild )-> Chlorpromazine. Denies: bloating, vomiting, constipation, diarrhea, distention, bowel incontinence, melena, bloody stool, changes in stool, steatorrhea. Genitourinary: Denies: discharge, dysuria, frequency, hematuria, hesitation, nocturia, pain, urgency. Musculoskeletal: Denies: back pain, gout, joint pain, joint swelling, muscle pain, muscle stiffness, neck pain. Skin: Denies: cysts, change in skin color, change in hair/nails, dryness, erythema, jaundice, lesions, lymphangitis, lumps, moles, rash. Neurological/Psychological: Reports: anxiety, emotional problems. Denies: ataxia, cognitive dysfunction, confusion, depressed, dementia, headache, numbness, paresthesia, pre-existing deficit, petit mal seizures, tingling, tremors, tonic-clonic seizures, unable to move lower ext, unable to move upper ext, weakness, other. Hematologic/Endocrine: Denies: bruising, bleeding, polyuria, polydipsia. Immunologic/Allergic: Denies: splenectomy, HIV/AIDS, lymphadenopathy. All Other Systems: Reviewed and Negative Objective Vital Signs and I&Os Vital Signs Date Time Temp Pulse Resp B/P B/P Pulse O2 O2 Flow FiO2 Mean Ox Delivery Rate 02/26 1437 98.6 74 16 139/88 95 Room Air 02/26 0800 Room Air 02/26 0631 98.9 76 20 124/74 97 Room Air 02/25 2135 99.7 83 19 138/77 97 Room Air Intake & Output 02/26 0400 02/25 04002/24 0400 Intake Total 1961.4 1717.2 667.0 1800.8 465.0 Output Total 1550 1125 2150 540 1375 300 Balance 411.4 -1125 -432.8 127.0 425.8 165.0 Intake, IV 200 50 30 100 30 Intake, Lipid 233.8 200.0 87.0 233.6 75.0 Intake, Oral 60 0 0 0 Intake, 1467.6 1467.2 550 1467.2 360 TPN/PPN Number 0 1 0 Bowel Movements Output, Urine 1550 1125 2150 540 1375 300 Patient 195 lb 200 lb 205 lb Weight Weight Bed scale Measurement Method Physical Exam: Well-developed, well-nourished male, in NAD, non-toxic appearing. Sclera anicteric. Conjunctiva pink. Oropharynx clear. No oral thrush. No aphthous ulcers. There is no adenopathy, thyromegaly, or JVD. No peripheral stigmata of inflammatory bowel disease or chronic liver disease on exam. No spiders on the anterior chest wall. No gynecomastia. No CVA tenderness. No spine tenderness. Lungs: clear to A&P, with slight decreased BS at bases B/L. No wheezing, rales, or rhonchi. Heart exam: regular rate rhythm, S1 and S2, without any murmur. Abdominal exam: normal bowel sounds, soft belly, less distended, essentially nontender, without guarding or rebound. No mass. No organomegaly. No definite fluid shift. No epigastric bruit. No pulsatile mass. Multiple scars. Digital rectal exam: previously deferred by patient. Extremities: without C, C, or E. No rash. Clean site at E PIC. Mild DJD. No palmar erythema. No Dupuytren's contractures. No palpable cords. Distal pulses 2+ bilaterally. DTRs 2+ bilaterally. Right handed. CN II-XII prev intact. Motor 5/5 B/L. Alert and oriented x 3. No tremor. No asterixis. Current Medications: Current Medications Sig/Oz Start time Last Medication Dose Route Stop Time Status Admin Acetaminophen 650 MG Q4P PRN 02/18 1630 AC 02/22 PO 1505 Ceftriaxone Sodium 1,000 MG Q24H 02/26 1000 AC 02/26 IV 1034 Chlorpromazine 25 MG Q6P PRN 02/24 1845 AC 02/26 PO 1617 Fat Emulsion 500 ML Q24H 02/26 190 AC Intravenous IV 02/27 185 Fat Emulsion 350 [place] [address]/25 190 DC 02/25 Intravenous IV 02/26 1859 203 Gabapentin 300 MG Q8 02/18 1400 AC 02/26 PO 1432 Heparin Sodium 5,000 UNIT Q8 02/04 0600 AC 02/26 (Porcine) SC 1432 Hydromorphone HCl 2 MG Q3P PRN 02/17 1800 AC 02/26 IV 1612 Metoclopramide HCl 10 MG Q8 02/23 1400 AC 02/26 IV 1432 Nicotine 7 MG DAILY 02/04 0900 AC 02/25 TOP 0809 Omeprazole 40 MG DAILY AC 02/07 0700 AC 02/26 PO 0536 Ondansetron HCl 4 MG Q6P PRN 02/04 0245 AC 02/26 IV 1209 Oxycodone HCl 10 MG Q4P PRN 02/23 1100 AC 02/26 PO 1432 Sodium Chloride 1,000 ML ONCE ONE 02/26 0945 AC 02/26 IV 02/26 194 1035 Total Parenteral 1 UNIT ONE 02/26 1900 AC Nutrition IV 02/27 185 Total Parenteral 1 UNIT 1900 02/25 190 DC 02/25 Nutrition IV 02/26 Results Pertinent Lab Results: Laboratory Tests 02/26 02/25 0542 1020 Chemistry Sodium (137 - 145 mmol/L) 129 L 130 L Potassium (3.5 - 5.1 mmol/L) 4.3 3.9 Chloride (98 - 107 mmol/L) 94 L 95 L Carbon Dioxide (22 - 30 mmol/L) 27 28 Anion Gap (5 - 16) 8 7 BUN (9 - 20 mg/dL) 11 10 Creatinine (0.7 - 1.2 mg/dL) 0.6 L 0.6 L Estimated GFR (>60 ml/min) > 60 > 60 BUN/Creatinine Ratio (7 - 25 %) 18.3 16.7 Magnesium (1.6 - 2.3 mg/dL) 2.0 Triglycerides (<150 mg/dL) 78 Hematology CBC w Diff NO MAN DIFF REQ MAN DIFF ORDERED WBC (4.8 - 10.8 /CUMM) 9.1 7.2 RBC (4.70 - 6.10 /CUMM) 3.52 L 3.50 L Hgb (14.0 - 18.0 G/DL) 10.5 L 10.5 L Hct (42 - 52 %) 30.9 L 31.0 L MCV (80.0 - 94.0 FL) 87.8 88.6 MCH (27.0 - 31.0 PG) 30.0 29.9 MCHC (33.0 - 37.0 G/DL) 34.1 33.8 RDW (11.5 - 14.5 %) 14.8 H 14.4 Plt Count (130 - 400 /CUMM) 322 329 MPV (7.4 - 10.4 FL) 8.2 7.8 Gran % (42.2 - 75.2 %) 75.2 68.8 Lymphocytes % (20.5 - 51.1 %) 7.3 L 9.6 L Monocytes % (1.7 - 9.3 %) 16.0 H 20.2 H Eosinophils % (0 - 5 %) 1.3 1.0 Basophils % (0.0 - 2.0 %) 0.2 0.4 Absolute Granulocytes (1.4 - 6.5 /CUMM) 6.8 H 4.9 Segmented Neutrophils (42.2 - 75.2 %) 59 Band Neutrophils (0.0 - 5.0 %) 9 H Absolute Lymphocytes (1.2 - 3.4 /CUMM) 0.7 L 0.7 L Lymphocytes (20.5 - 51.1 %) 15 L Monocytes (1.7 - 9.3 %) 16 H Absolute Monocytes (0.10 - 0.60 /CUMM) 1.4 H 1.4 H Eosinophils (0 - 5.0 %) 1 Absolute Eosinophils (0.0 - 0.7 /CUMM) 0.1 0.1 Absolute Basophils (0.0 - 0.2 /CUMM) 0 0 Platelet Estimate (ADEQUATE) VERIFIED BY SMEAR Normocytic RBCs VERIFIED Normochromic RBCs VERIFIED 02/24 02/24 0600 0545 Chemistry Sodium (137 - 145 mmol/L) 131 L Potassium (3.5 - 5.1 mmol/L) 3.9 Chloride (98 - 107 mmol/L) 95 L Carbon Dioxide (22 - 30 mmol/L) 28 Anion Gap (5 - 16) 8 BUN (9 - 20 mg/dL) 10 Creatinine (0.7 - 1.2 mg/dL) 0.7 Estimated GFR (>60 ml/min) > 60 BUN/Creatinine Ratio (7 - 25 %) 14.3 Calcium (8.4 - 10.2 mg/dL) 7.4 L Phosphorus (2.5 - 4.5 mg/dL) 3.6 Magnesium (1.6 - 2.3 mg/dL) 1.9 Total Bilirubin (0.2 - 1.3 mg/dL) 0.8 Direct Bilirubin (< 0.4 mg/dL) 0.6 H AST (17 - 59 U/L) 113 H ALT (21 - 72 U/L) 103 H Alkaline Phosphatase (< 127 U/L) 98 Total Protein (6.3 - 8.2 g/dL) 5.5 L Albumin (3.5 - 5.0 g/dL) 2.3 L Prealbumin (17.6 - 36.0 mg/dL) 3.4 L Hematology CBC w Diff Cancelled WBC Cancelled RBC Cancelled Hgb Cancelled Hct Cancelled MCV Cancelled MCH Cancelled MCHC Cancelled RDW Cancelled Plt Count Cancelled MPV Cancelled Imaging/Other Studies: 02/04/18: EKG- SB @ 57, nl axis, PA .20, no ischemic change. 02/04/18: CT ABDOMEN AND PELVIS WITHOUT IV CONTRAST (*per [facility], limited study w/o IV cont)- Prominent inflammatory changes surrounding the pancreas with edematous appearance of the pancreas. This is suggestive of acute pancreatitis. No PD dilitation. Post CCKY with postop CBD 1.3 cm (chronic), no filling defect. Stable ectatic appearance of the left common iliac artery. Normal AP. No hernia. DJD. 02/04/18: US ABDOMEN COMPLETE- 1. Edematous pancreas with peripancreatic fluid, consistent with acute pancreatitis. 2. The pancreatic head and portions of the tail are not visualized. 3. Intra and extrahepatic ductal dilatation is seen. Common bile duct measuring up to 1 cm. Findings may at least in part be related to the patient's postcholecystectomy state with similar appearance seen on older CT scan from 07/11/2017, at which time, no evidence of acute pancreatitis was seen. In the visualized portions of the common bile duct on today's exam, no filling defect is seen. Distal most CBD is, however, not visualized. Close clinical correlation is requested. 4. Status post cholecystectomy. *Unfortunately, no MRCP available at [facility] on Tuesdays, prohibiting this on . 02/05/18: XRY-CHEST XRAY, TWO VIEWS- No acute cardiopulmonary process. 02/05/18: MR ABDOMEN WITHOUT CONTRAST/MRCP- 1. Acute interstitial pancreatitis is seen with pancreatic parenchymal edema and peripancreatic soft tissue edema and stranding. Associated circumferential wall thickening in the duodenum and proximal jejunum is seen, consistent with sympathetic changes to the pancreatic inflammation. 2. No evidence of variant ductal anatomy. No definite pancreatic head mass seen on noncontrast study. 3. Mild intrahepatic ductal dilatation and moderate extrahepatic ductal dilatation to 1 cm is seen. There is smooth tapering of the common bile duct to 0.4 cm in the preampullary region with no evidence of choledocholithiasis. Findings may be related to the patient's postcholecystectomy state. 4. A few scattered bilateral renal cysts are incidentally seen. 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 Right greater than left bilateral pleural effusions with associated airspace disease. 02/13/18: XRY-CHEST XRAY, TWO VIEWS- Bibasilar subsegmental atelectasis with small right more than left pleural effusions. No dense consolidation. 02/14/18: XRY-PORTABLE CHEST XRAY- Bilateral pleural effusions with bibasilar airspace opacity, consolidation atelectasis. These basilar densities are greater at the right lung base than the left. 02/15/18: [id number] VIEWS- No evidence of free air or air-fluid levels to suggest any perforation or obstruction. No organomegaly. 02/15/18: CT ABD & PELVIS W IV CONTRAST- 1. Similar appearance of the pancreas with diffuse edema without definite areas of necrosis. There are acute peripancreatic fluid collections seen, possibly decreasing since the prior study as detailed above. There is slightly increased organization with thin enhancing mascorro. 2. Right colonic wall thickening and submucosal fat proliferation, new since 11/22/2017. Whether this is representing acute colitis versus reaction to the closely adjacent fluid collections and pancreatitis is unclear. Clinical correlation requested. 3. Other chronic, nonacute findings as above. 02/18/18: XRY-CHEST XRAY, TWO VIEWS- Stable bibasilar airspace disease and small pleural effusions. : CT ABDOMEN WITHOUT AND WITH CONTRAST Unchanged inflammatory process involving the pancreas with peripancreatic fluid collections with one more organized discrete collection on the right abdomen just beneath the liver. *This is the collection for which a request has been made to aspirate tomorrow. The associated right colonic wall thickening and inflammatory changes remain present as well. 02/20/18: *ULTRASOUND-GUIDED ASPIRATION OF A PANCREATIC PSEUDOCYST- Diagnostic aspiration 18 cc light olivo, cloudy fluid, performed of the patient's right upper quadrant, subhepatic pseudocysts under sonographic guidance without evidence of complications. Specimens were sent to the laboratory for C&S, cell count with diff, and amylase as requested. 02/20/18: XRY-PORTABLE CHEST XRAY- (post PCC). The right arm peripherally inserted catheter is in satisfactory position. Persistent small pleural effusions and bibasilar atelectasis. 02/26/18: CT ABDOMEN WITHOUT AND WITH IV CONTRAST (personally reviewed by myself with Dr. Lombardi, of [facility], on 02/26/18 at 6:25 p.m.)-
[2018-02-26 20:53] VITALS: BP 127/68
[2018-02-27 06:38] VITALS: BP 118/66
--- NOTE | 2018-02-27 07:15 | PN- Housestaff ---
Subjective Follow-up For: Smoldering Pancreatitis Subjective: overnight the patient's left knee buckled requiring him to sit back in the bed and nursing placed a bed alarm, his abdominal pain is significantly improved, afebrile on antibiotics, remains npo and on tpn, he has no complaints of nausea and vomiting but does still have hiccups Review of Systems Constitutional: Reports: see HPI. Objective Last 24 Hrs of Vital Signs/I&O Vital Signs Date Time Temp Pulse Resp B/P B/P Pulse O2 O2 Flow FiO2 Mean Ox Delivery Rate 02/27 638 98.2 82 18 118/66 97 Room Air 02/26 205 99.6 86 17 127/68 96 Room Air 02/26 1600 Room Air 02/26 1437 98.6 74 16 139/88 95 Room Air Intake & Output 02/27 1600 02/27 0800 02/27 0000 Intake Total 850.4 1262.0 Output Total 700 900 Balance 150.4 362.0 Intake, IV 500 Intake, Lipid 116.8 105.0 Intake, Oral 20 Intake, 733.6 637 TPN/PPN Output, Urine 700 900 Patient 87.628 kg Weight Physical Exam General Appearance: Alert, Oriented X3, Cooperative, No Acute Distress Cardiovascular: Regular Rate, Normal S1, Normal S2, No Murmurs Lungs: Clear to Auscultation, Normal Air Movement Abdomen: Normal Bowel Sounds, distended but soft abdomen, bs hyperactive, mild right sided abdominal tenderness on deep palpations without rebound, guarding, or peritoneal signs Extremities: No Clubbing, No Cyanosis, No Edema, Normal Pulses, RUE PICC Current Medications: Current Medications Sig/Oz Start time Last Medication Dose Route Stop Time Status Admin Acetaminophen 650 MG Q4P PRN 02/18 1630 AC 02/22 PO 1505 Ceftriaxone Sodium 1,000 MG Q24H 02/26 1000 AC 02/26 IV 1034 Chlorpromazine 25 MG Q6P PRN 02/24 1845 AC 02/26 PO 1617 Fat Emulsion 350 ML ONCE ONE 02/27 1900 AC Intravenous IV 02/28 185 Fat Emulsion 500 ML Q24H 02/26 1900 AC 02/26 Intravenous IV 02/27 185 1955 Fat Emulsion 350 ML 1900 02/25 1900 DC 02/25 Intravenous IV 02/26 Gabapentin 300 MG Q8 02/18 1400 AC 02/27 PO 0528 Heparin Sodium 5,000 UNIT Q8 02/04 0600 AC 02/27 (Porcine) SC 0529 Hydromorphone HCl 2 MG Q3P PRN 02/17 1800 AC 02/27 IV 0250 Metoclopramide HCl 10 MG Q8 02/23 1400 AC 02/27 IV 0528 Nicotine 7 MG DAILY 02/04 09 AC 02/25 TOP 0809 Omeprazole 40 MG DAILY AC 02/07 0700 AC 02/27 PO 0528 Ondansetron HCl 4 MG Q6P PRN 02/04 0245 AC 02/26 IV 1209 Oxycodone HCl 10 MG Q4P PRN 02/23 1100 AC 02/27 PO 0528 Sodium Chloride 1,000 ML ONCE ONE 02/26 09 DC 02/26 IV 02/26 194 1035 Total Parenteral 1 UNIT ONE 02/27 190 AC Nutrition IV 02/28 1859 Total Parenteral 1 UNIT ONE 02/26 190 AC 02/26 Nutrition IV 02/27 Total Parenteral 1 UNIT 1900 02/25 190 DC 02/25 Nutrition IV 02/26 Last 24 Hrs of Lab/Steven Results Last 24 Hrs of Labs/Mics: Laboratory Tests 02/27/18 0535: Anion Gap 8, Estimated GFR > 60, BUN/Creatinine Ratio 18.3, CBC w Diff NO MAN DIFF REQ, RBC 3.52 L, MCV 88.0, MCH 29.8, MCHC 33.9, RDW 14.7 H, MPV 8.2, Gran % 80.4 H, Lymphocytes % 7.2 L, Monocytes % 11.8 H, Eosinophils % 0.3, Basophils % 0.3, Absolute Granulocytes 8.2 H, Absolute Lymphocytes 0.7 L, Absolute Monocytes 1.2 H, Absolute Eosinophils 0, Absolute Basophils 0 Assessment/Plan Assessment: 52yo M w/ PMH of diverticulitis, kidney stones s/p lithotripsy, gallstones s/p cholecystectomy, s/p Pippa procedure w/ temporary colostomy followed by revision in 2015, s/p hernia repair, reversible ischemia on nuclear stress test status post cardiac cath recently in 2014 presented to [facility] w/ N/V/D/severe intermittent abd pain since 1pm of 02/03/2018, endorsed loose BM, w/ intermittent non-bloody vomiting. Patient is being treated currently for acute pancreatitis with infected necrosis and pseudocyst, now NPO on TPN for 1 week, and remains on ceftriaxone. Smoldering pancreatitis: Etiology as of now unclear, s/p cholecystectomy, negative EtOH Negative MRCP Abdominal pain improved CT Abdomen 02/26/18 1. There is increased peripancreatic fluid and soft tissue density compared to the prior study. The pancreatic parenchyma has lower attenuation compared to prior imaging, which may be consistent with evolving necrotic changes. 2. The discrete fluid collection along the ventral head of the pancreas is no longer visualized. There is extensive loculated fluid in the right abdomen extending inferiorly and posterior to the right psoas muscle, not significantly changed compared to the most recent prior study. 3. Flow is demonstrated in the splenic and portal veins. 4. Anasarca in the abdominal mascorro appears similar compared to prior imaging. Gastroenterology consulted, appreciate recommendations Last fever 02/19, on ceftriaxone, no leukocytosis RUQ aspiration fluid cultures aEnterobacter Cloacea Ceftriaxone day 8 Plan for ex lap after pancreatic pseudocyst maturation in 6-8 weeks, f/u surgery recs Tranfer to [place] for EUS with cyst drainage declined by patient for transportation issues NPO on TPN today day 7, via RUE PICC monitor triglycerides and electrolyte while patient is on the TPN Increased TPN electrolytes, Na from 45->55meq for gradual correction of hyponatremia Mild transaminitis on TPN, repeat liver function testing tomorrow Consider changing ceftriaxone to ciprofloxacin per GI as this also can cause transaminitis Can consider trying clear liquids if abdominal pain coninues to improve Continue zofran and reglan, chlorpromazine for hiccups PO PPI Oxycodone prn for analgesia NPO on TPN day 7 DVT ppx-heparin sc Full code Problem List: 1. Cholecystectomy 2. Malnutrition 3. Acute pancreatitis with infected necrosis 4. Pseudocyst of pancreas Pain Ratin Pain Location: right abdomen Pain Goal: Pain 4 or less Pain Plan: oxycodone prn Tomorrow's Labs & Rationales: cbc, bep, mg, phos, calcium, prealbumin, triglyceride
[2018-02-27 08:33] LABS: ABSOLUTE BASOPHIL COUNT 0 /CUMM (0.0-0.2); ABSOLUTE EOSINOPHIL COUNT 0 /CUMM (0.0-0.7); ABSOLUTE GRANULOCYTE CT 8.2 /CUMM (1.4-6.5); ABSOLUTE LYMPH COUNT 0.7 /CUMM (1.2-3.4); ABSOLUTE MONOCYTE COUNT 1.2 /CUMM (0.10-0.60); BASOPHIL % 0.3 % (0.0-2.0); EOSINOPHIL % 0.3 % (0-5); GRANULOCYTE % 80.4 % (42.2-75.2); MEAN CORPUSCULAR HGB 29.8 PG (27.0-31.0); MEAN CORPUSCULAR HGB CONC 33.9 G/DL (33.0-37.0); MEAN PLATELET VOLUME 8.2 FL (7.4-10.4); PLATELET COUNT 327 /CUMM (130-400); RBC DISTRIBUTION WIDTH 14.7 % (11.5-14.5); RED BLOOD CELL CT 3.52 /CUMM (4.70-6.10); WHITE BLOOD CELL COUNT 10.3 /CUMM (4.8-10.8)
--- NOTE | 2018-02-27 13:13 | PN- Att Addend ---
Attending Addendum Attending Brief Note Patient seems comfortable, seems to have less pain. Hyperalimentation continues Vital signs stable no fever, no new changes in physical. White count is 10,300 today we will continue present treatment and ask surgery and GI what the next step would be and when the patient be able to start some feedings by mouth. Intake & Output 02/27 1600 02/27 0400 02/26 1600 02/26 0400 02/25 1600 02/25 0400 Intake Total 850.4 1262.0 1961.4 1717.2 667.0 Output Total 391 897 1546 1125 2150 540 Balance 150.4 362.0 411.4 -1125 -432.8 127.0 Intake, IV 500 200 50 30 Intake, Lipid 116.8 105.0 233.8 200.0 87.0 Intake, Oral 20 60 0 0 Intake, 733.6 637 1467.6 1467.2 550 TPN/PPN Number 0 Bowel Movements Output, Urine 267 814 3249 1125 2150 540 Patient 193 lb 195 lb 200 lb Weight Weight Bed scale Measurement Method Current Medications Sig/Oz Start time Last Medication Dose Route Stop Time Status Admin Acetaminophen 650 MG Q4P PRN 02/18 1630 AC 02/22 PO 1505 Ceftriaxone Sodium 1,000 MG Q24H 02/26 1000 AC 02/27 IV 0918 Chlorpromazine 25 MG Q6P PRN 02/24 1845 AC 02/26 PO 1617 Fat Emulsion 350 ML ONCE ONE 02/27 190 AC Intravenous IV 02/28 185 Fat Emulsion 500 ML Q24H 02/26 1900 AC 02/26 Intravenous IV 02/27 185 195 Fat Emulsion 350 ML [address]002/25 1900 DC 02/25 Intravenous IV 02/26 185 2034 Gabapentin 300 MG Q8 02/18 1400 AC 02/27 PO 0528 Heparin Sodium 5,000 UNIT Q8 02/04 06 AC 02/27 (Porcine) SC 0529 Hydromorphone HCl 2 MG Q3P PRN 02/17 1800 AC 02/27 IV 0918 Metoclopramide HCl 10 MG Q8 02/23 1400 AC 02/27 IV 0528 Nicotine 7 MG DAILY 02/04 09 AC 02/27 TOP 0918 Omeprazole 40 MG DAILY AC 02/07 0700 AC 02/27 PO 0528 Ondansetron HCl 4 MG Q6P PRN 02/04 0245 AC 02/26 IV 1209 Oxycodone HCl 10 MG Q4P PRN 02/23 1100 AC 02/27 PO 1045 Sodium Chloride 1,000 ML ONCE ONE 02/26 945 DC 02/26 IV 02/27 1944 103 Total Parenteral 1 UNIT ONE 02/27 1900 AC Nutrition IV 02/28 1859 Total Parenteral 1 UNIT ONE 02/26 1900 AC 02/26 Nutrition IV 02/27 Total Parenteral 1 UNIT 1900 02/25 1900 DC 02/25 Nutrition IV 02/26 Laboratory Tests 02/27/18 0535: Anion Gap 8, Estimated GFR > 60, BUN/Creatinine Ratio 18.3, CBC w Diff NO MAN DIFF REQ, RBC 3.52 L, MCV 88.0, MCH 29.8, MCHC 33.9, RDW 14.7 H, MPV 8.2, Gran % 80.4 H, Lymphocytes % 7.2 L, Monocytes % 11.8 H, Eosinophils % 0.3, Basophils % 0.3, Absolute Granulocytes 8.2 H, Absolute Lymphocytes 0.7 L, Absolute Monocytes 1.2 H, Absolute Eosinophils 0, Absolute Basophils 0 02/26/18 0542: Anion Gap 8, Estimated GFR > 60, BUN/Creatinine Ratio 18.3, CBC w Diff NO MAN DIFF REQ, RBC 3.52 L, MCV 87.8, MCH 30.0, MCHC 34.1, RDW 14.8 H, MPV 8.2, Gran % 75.2, Lymphocytes % 7.3 L, Monocytes % 16.0 H, Eosinophils % 1.3, Basophils % 0.2, Absolute Granulocytes 6.8 H, Absolute Lymphocytes 0.7 L, Absolute Monocytes 1.4 H, Absolute Eosinophils 0.1, Absolute Basophils 0 02/25/18 1020: Anion Gap 7, Estimated GFR > 60, BUN/Creatinine Ratio 16.7, Magnesium 2.0, Triglycerides 78, CBC w Diff MAN DIFF ORDERED, RBC 3.50 L, MCV 88.6, MCH 29.9, MCHC 33.8, RDW 14.4, MPV 7.8, Gran % 68.8, Lymphocytes % 9.6 L, Monocytes % 20.2 H, Eosinophils % 1.0, Basophils % 0.4, Absolute Granulocytes 4.9, Segmented Neutrophils 59, Band Neutrophils 9 H, Absolute Lymphocytes 0.7 L, Lymphocytes 15 L, Monocytes 16 H, Absolute Monocytes 1.4 H, Eosinophils 1, Absolute Eosinophils 0.1, Absolute Basophils 0, Platelet Estimate VERIFIED BY SMEAR, Normocytic RBCs VERIFIED, Normochromic RBCs VERIFIED Vital Signs Date Time Temp Pulse Resp B/P B/P Pulse O2 O2 Flow FiO2 Mean Ox Delivery Rate 02/27 0638 98.2 82 18 118/66 97 Room Air 02/26 2053 99.6 86 17 127/68 96 Room Air 02/26 1600 Room Air 02/26 1437 98.6 74 16 139/88 95 Room Air
[2018-02-27 15:43] VITALS: BP 120/74
--- NOTE | 2018-02-27 20:26 | PN- Gastroenterology ---
Assessment/Plan GI Assessment/Recommendations: *Please refer to my initial inpt GI consultation of 02/04/18. I assumed the weekly inpatient GI service from Dr. Jenae Ardon on 02/21/18. Extensive records reviewed). 52 y/o male, HTN, non-DM, renal stones post ESWL, smoker, hx GERD, anxiety, 02/27: CCKY for biliary colic (path: chronic cholecystitis, cholesterolosis, & cholelithiasis), hx diverticulosis coli, post 09/05/15: Pippa's procedure for sigmoid diverticulitis with phlegmon, f/b 12/27/15: reversal of colostomy, KRISTIN, reinforcement of midline fascia with mesh. This was followed by 08/14/16: open mesh repair of ventral incisional hernia, along with bilateral advancement rectus muscular fascial flap reconstruction, all per Dr. Cordon. He also has hx gout & had numerous orthopedic procedures, including right rotator cuff surgery, & left elbow ulnar surgery. *He had a chronic pain syndrome in the right flank. 03/15/06: EGD/colonoscopy (purged) gastric bxs unremarkable, H. pylori negative; bxs GEJ- benign inflammation, without Collier's esophagus. 09/06/14: Combined baseline upper endoscopy to the third portion of the duodenum with biopsies, plus follow up colonoscopy to the terminal ileum with biopsies (*done for GERD & chronic vague right-sided abdominal sx, requiring multiple ER visits & OV with the GI COMMUNICATIONS ANALYST)- ? mild gastroparesis with bile cleared from proximal stomach, random bxs D2/D3- neg, random bx antrum- mild CAG, HP-neg, bx inflamed cardia- mild CFG , HP-neg, 2 cm HH, random bxs distal esophagus at 42 cm/Z line & at 39 cm- nl esophageal mucosa, neg EOE; mod L tics, focal sigmoid erythema from 25-30 cm in midst of tics-colonic mucosa with focal hyperplastic change & hemorrhage, random bxs of TI, right colon, left colon, & rectum- all neg. (The pt was rxd Nexium 40 mg daily then) He was due for f/u surveillance colonoscopy x 10 yrs (avg risk) = 08/2024. He was told if inc sx, to consider GES (which he never had), TFT with TSH, HgbA1C, celiac panel, etc. He was then seen in inpatient GI consultation 04/22/[address] Sprague for sigmoid diverticulitis, txd with antibiotics. He ultimately then had 09/05/15: Pippa 's procedure, followed by 12/27/15: reversal of colostomy/KRISTIN & 08/14/16: open mesh repair of ventral incisional hernia, as above. He was most recently seen in inpatient GI consultation by Dr. Jenae Ardon , for chronic progressive vague right-sided abdominal/right flank pain, which was somewhat positional in nature. This was felt to have a neuropathic quality. History, exam, and imaging did not show any acute intra-abdominal or retroperitoneal process. He had a minimally elevated lipase then which was felt to be nonspecific. There was no clinical evidence of pancreatitis. A radicular process vs. zoster was considered, & he was rxd ANGE & Valacyclovir. A Lyme titer then was negative, although he did get a 10 day course of Doxycyline. Since 1 PM on 02/03/18, the patient noted nausea, vomiting, diarrhea, and intermittent, severe intense, abdominal pain, described as "someone beating the hell out of my stomach". It was localized to the periumbilical region, radiating suprapubically and epigastrically. Initially, the pain was "3 out of 10", then became "10 out of 10" and constant in nature. He took [place], without relief. He arrived at the [facility] 02/04/18 at 12:14 a.m. for the above, at which point, he was HTN, with BP 218/97, P 57, R 22, T 97.5, O2 sat RA 100%. He was initially in tears from the pain. 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 The vomitus initially showed partially digested food, but then became clear, non-bloody, non-bilious. He had chronic GERD, for which he took Tums prn. He was not on longstanding PPI. He denied any odynophagia or dysphagia. He denied using any NSAIDS, thiazides, or Sulfa meds. He denied any hematemesis, melena, or BRBPR. He denied any EtOH, transfusions, IVDA, HIV, or hx viral hepatitis. He denied any definite jaundice, dark urine, light stools, pruritus, or confusion. He denied any fevers, chills, night sweats, CP, SOB, symptoms of UTI or URI. There was no abdominal trauma. His appetite was fair, since his multiple abdominal surgeries a few years ago. He denied any early satiety. His weight had been stable for the past 2 years, but he stated that he was previously obese & lost > 100 lbs a few years ago, in the midst of tx of his divericulitis. There is no FHx GI Ca, GI disease, inherited pancreatitis, or inherited liver disease. He was found to have newly elevated LFTs & elevated lipase (*see labs). 11/24/17: minimal lipase 401, with nl LFTs. 02/04/18: 0116- Admission labs-WBC 11.5 (92% gran/11 gran Ab), H/H 18/51.3, MCV 90, RDW 13.9, PLT 137, glucose 125, BUN/CR 16/1.1, GFR > 60, Na 141, K 4.0, HCO3 23, AG 14, Ca 10.1, amylase 3643, lipase > 10K, albumin 4.7, globulin 3.9, Tbil 2.3, DBil 1.4, alk phos 196, AST 266, ALT 219, troponin < 0.01; (no U/A or PT/ PTT). 02/04/18: 0246- *TG 101, [EtOH] < 10. 02/04/18: EKG- SB @ 57, nl axis, AZ .20, no ischemic change. 02/04/18: CT ABDOMEN AND PELVIS WITHOUT IV CONTRAST (*per Krishna CARRENO, limited study w/o IV cont)- Prominent inflammatory changes surrounding the pancreas with edematous appearance of the pancreas. This is suggestive of acute pancreatitis. No PD dilitation. Post CCKY with postop CBD 1.3 cm (chronic), no filling defect. Stable ectatic appearance of the left common iliac artery. Normal AP. No hernia. DJD. 02/04/18: US ABDOMEN COMPLETE- 1. Edematous pancreas with peripancreatic fluid, consistent with acute pancreatitis. 2. The pancreatic head and portions of the tail are not visualized. 3. Intra and extrahepatic ductal dilatation is seen. Common bile duct measuring up to 1 cm. Findings may at least in part be related to the patient's postcholecystectomy state with similar appearance seen on older CT scan from 07/11/2017, at which time, no evidence of acute pancreatitis was seen. In the visualized portions of the common bile duct on today's exam, no filling defect is seen. Distal most CBD is, however, not visualized. Close clinical correlation is requested. 4. Status post cholecystectomy. *Unfortunately, no MRCP available at [place] on Tuesdays, prohibiting this on . *The patient was initially most likely felt to have gallstone pancreatitis. His TG were normal. He did bump up his LFTs. *He had no signs or symptoms of cholangitis. The admission CT was somewhat limited without IV contrast. Even so, it showed pancreatic inflammation. Subsequent admission ultrasound showed chronic mild nonspecific dilated CBD & mildly dilated IHD, but apparently, these findings are chronic, post CCKY. However, the elevated LFTs are new. Unfortunately, MRCP was not available at [place] on Tuesdays, & therefore, could not be obtained on 02/04/18. He appeared somewhat hemoconcentrated on admission, as did his HCT 51.3. *He had 1 grave sign by Kala criteria on admission, namely elevated AST, although no LDH was sent. *He had 0 grave signs by BiSAP criteria on admission, but no CXR was obtained to rule out pleural effusions. ( Limited views of the lung bases on CT AP were clear). He denied EtOH. He is a 30 pk yr cigarette smoker, which is a risk factor for pancreatitis. Surprisingly, 02/05/18: MRCP was negative for choledocholithiasis. The patient has had numerous imaging studies since admission, *including aspirate of right subhepatic fluid collection, performed on 02/20/18, with right sided PICC placed that day, as well. 02/20/18: BF amylase 42, BF cell count could not be done by lab, g stain w/o WBC , with *BF C&S- mod GNR. *As of 02/21/18, the pt was hemodynamically stable, & afebrile, with O2 sat RA 94%. His leukocytosis was improved. There was no hemoconcentration by labs. He was malnourished with 02/20/18: PAB < 3, TG 79 (*TPN rxd). LFTs had normalized except for decreased synthetic function. He still had some abdominal pain, mostly in the RLQ & right flank. He also noted nausea and mild vomiting. He no longer had fevers or chills. He was no longer yellow. *The patient was put on IV Ceftriaxone 02/21/18, for acute pancreatitis with pseudocyst and infected necrosis. *Plans are to try to wait 6-8 weeks until the wall of the pseudocyst matures, prior to considering surgical intervention. * Another option could be eventual drainage via EUS, and will discuss with surgery , although the pt did not appear to be desirous of going to [facility], ? "because of transportation issues, which would arise when he was D/C from there". 02/18/18: nl LFTs xc alb 2.6, glob 2.8 02/20/18: PAB < 3.0 02/21/18: BF C&S- E. Cloacae (*S-Fortaz/Ceftriaxone/Cipro/Gent/Bactrim). 02/22/18: WBC 8.9, H/H 10.3/30.6, PLT 351, BUN/Cr 12/0.7, GFR > 60, Na 130, K 3.8, HCO3 29, AG 5, Mg 2.0, TG 81 *As of 02/22/18, the patient was hemodynamically stable, with Tm 99.5 (98.7), with O2 sat RA 96%. The patient had a panic attack earlier today with anxiety. He remained NPO on TPN. He had some mild nausea with Dilaudid. He was having loose BMs. His right-sided abdominal pain was slowly improving, as well as his leukocytosis. He denied any jaundice, vomiting, or chills. He also noted hiccups for the past few days. He denied any CP, SOB, or pleuritic pain. 02/20: CXR-small pleural effusions and bibasilar atelectasis. *Overall, he appeared to be slowly improving. 09/02/18: 0610- WBC 8.4, H/H 10.5/30.9, MCV 89.5, PLT 346, BUN/Cr 11/0.6, GFR > 60, Na 131, K 3.7, HCO3 29, AG 6, albumin 2.3, globulin 3.3, TBil 0.8/DBil 0.6, alk phos 95, AST 102, ALT 84 (*on TPN) *As of 02/23/18, the patient remained hemodynamically stable, with Tm 99.4 (on Ceftriaxone), & O2 sat RA 96%. + 206.4 mL, w/o hemoconcentration by labs. Overall, he continued to slowly improve. His RLQ pain was better, as was his nausea. He denied any chills, jaundice, vomiting, CP, or SOB. He was ambulating. He remained NPO on TPN with intralipids. He was given Chlorpromazine 25 mg IM x 1 earlier today for his hiccoughs, which helped. 02/24/18: 0545- BUN/Cr 10/0.7, GFR > 60, Na 131, K 3.9, HCO3 28, AG 8, Mg 1.9, Ca 7.4, PO4 3.6, *PAB 3.4, albumin 2.3, globulin 3.2, TBil 0.8, DBil 0.6, alk phos 98, AST 113, ALT 103. *As of 02/24/18, the patient was hemodynamically stable & afebrile, with O2 sat RA 95%. He remained on IV Ceftriaxone for his infected pseudocyst. He remained NPO on TPN with intralipids. The patient still had hiccups, but was not getting the Chlorpromazine. When he did get 1 dose of this, it worked. The pt apparently either "did not like the IM shot", or it "made him sleepy", but I told him it could be given po. His abdominal pain & nausea seemed much improved. He denied any chills or jaundice. He had no new complaints, otherwise. *I discussed the case with Dr. Roach, of surgery. I also spoke with Dr. Vicente at [facility] on 02/24/18. *If and when the patient is ready for drainage, the issue would be whether to do this surgically vs. via EUS. Dr. Vicente has drained infected pseudocysts via either the stomach or duodenum (this particular one would require a duodenal approach), & he told me they have a metal stent that has the ability to cauterize into the pseudocyst & then be anchored in place. Usually they can later pull it in a month or so, if the subsequent CT shows improvement. This can be readdressed down the road & was also d/w the pt. 02/25/18: 1020-WBC 7.2 (59S/9B/15L/16M/1E), H/H 10.5/31.0, nl MCV, nl RDW, PLT 329, BUN/Cr 10/0.6, GFR > 60, na 130, K 3.9, HCO3 28, AG 7, Mg 2.0, TG 78 *As of 02/25/18, the patient remained hemodynamically stable with Tm 99.8, with O2 sat RA 96%. He was feeling stronger and ambulating in the hallway. His abdominal pain was improving. His nausea was essentially gone. He had no chills or jaundice. His hiccups were under better control on Chlorpromazine 25 mg po Q6h prn. He remained NPO on TPN with intralipids, on IV Ceftriaxone, *awaiting repeat CT abdomen with pancreatic protocol tomorrow, 02/26/18. 02/26/18: CT ABDOMEN WITHOUT AND WITH IV CONTRAST (personally reviewed by myself with Dr. Lombardi, of [facility], on 02/26/18 at 6:25 p.m.)- IMPRESSION: 1. There is increased peripancreatic fluid and soft tissue density compared to the prior study. The pancreatic parenchyma has lower attenuation compared to prior imaging, which may be consistent with evolving necrotic changes. 2. The discrete fluid collection along the ventral head of the pancreas is no longer visualized. There is extensive loculated fluid in the right abdomen extending inferiorly and posterior to the right psoas muscle, not significantly changed compared to the most recent prior study. 3. Flow is demonstrated in the splenic and portal veins. 4. Anasarca in the abdominal mascorro appears similar compared to prior imaging. DICTATED BY: Daryn Tucker MD (According to Dr. Lombardi, the RUQ pseudocyst drained by IR 02/20/18 had completely resolved, but per my review with Dr. Roach on 02/26/18, it appeared to persist. Extensive fluid in right paracolic gutter & anasarca, without change. Also, lower attenuation of pancreatic parenchyma, with possible evolving necrotic changes. 02/26/18: WBC 9.1, H/H 10.5/30.9, PLT 322, BUN/Cr 11/0.6, GFR > 60, Na 129, K 4.3, HCO3 27, AG 8 *As of 02/26/18, the patient remained hemodynamically stable & afebrile (Tm 99.7 yesterday p.m.), on IV Ceftriaxone. He remained NPO on TPN with intralipids. His abdominal pain and nausea were essentially gone. He denied any jaundice or chills. He had some scant hiccups. His appetite was slowly returning. 02/27/18: 0535- WBC 10.3, H/H 10.5/31.0, PLT 327, BUN/Cr 11/0.6, GFR > 60, Na 130, K 4.4, HCO3 27, AG 8. *As of 02/27/18, the patient was hemodynamically stable, with Tm 99.6 (T 99.2), with O2 sat RA 96%. He remained on TPN with intralipids (day #7, via RUE PICC) & IV Ceftriaxone- day #8. He had no abdominal pain. He denied any nausea or vomiting. His hiccups were minimal, on Chlorpromazine. he denied any chills or jaundice. He was ambulating uneventfully. Parenteral narcotic analgesics were switched to po Oxycodone on 02/27/18. A/P: 52 y/o male, acute pancreatitis with infected necrosis-> (drained ; last CT 02/26/18), pseudocyst, abdominal pain, hiccoughs (the latter probably from some diaphragmatic irritation), elevated LFTs (*on TPN-> *AST/ALT possibly from Ceftriaxone), malnutrition, anemia, post 01/30/06: CCKY, hx 12/27/15: colostomy reversal/KRITSIN for sigmoid diverticulitis with phlegmon. *SUGGEST: NPO. TPN with intralipids via RUE PICC (day # 7, as of 02/27/18). Bowel rest. Strict I/O's. Serial CBC, *Serial LFTs (*on TPN, which often gives more of a cholestatic picture-> *AST/ALT could be from Ceftriaxone). Serial lytes, CBC, BUN/Cr, GFR. *Watch for hemoconcentration (i.e.- rising Hgb or BUN) despite IVF/ TPN, which would be a poor prognostic sign. IV Zofran. Analgesics. ANGE. IV Protonix 40 mg daily, for GERD. D/C cigarettes (on Nicotine patch 7 mg QD). DVT prophylaxis. *Continue IV Ceftriaxone for now day #8, as of 02/27/18), although the E. Cloacae is *S-Cipro, which has excellent pancreatic penetration (* consider switching to this, if AST/ALT continue to rise). *Follow-up with surgery. Continue narcotic analgesics and antiemetics. If hiccoughs worsen, consider repeat CXR. *Continue Chlorpromazine 25 mg po Q6h prn. If patient deteriorates, consider transfer to [facility] for inpatient EUS, but *no need for this at present, as the patient is improving.Hopefully, if the pt continues to clinically improve, can try sips of clears in a few days. *Try to wait 6-8 weeks until the wall of the pseudocyst matures, prior to considering drainage via EUS via duodenal approach vs. surgical intervention (d/w Dr. Roach & Dr. Vicente of [facility], on 02/24/18). [As an aside, he is due for f/u surveillance colonoscopy in 08/2024] . *Further GI recommendations to follow, depending on clinical course. *Dr. Mckeon is assuming the weekly in GI service as of this p.m. Problem List: 1. Acute pancreatitis with infected necrosis 2. Pseudocyst of pancreas 3. Abdominal pain 4. Hiccoughs 5. Elevated LFTs 6. Malnutrition 7. History of cholecystectomy 8. History of colostomy reversal 9. Diverticulosis of colon 10. Anemia Subjective Subjective: 02/27/18: 0535- WBC 10.3, H/H 10.5/31.0, PLT 327, BUN/Cr 11/0.6, GFR > 60, Na 130, K 4.4, HCO3 27, AG 8. *As of 02/27/18, the patient was hemodynamically stable, with Tm 99.6 (T 99.2), with O2 sat RA 96%. He remained on TPN with intralipids (day #7, via RUE PICC) & IV Ceftriaxone- day #8. He had no abdominal pain. He denied any nausea or vomiting. His hiccups were minimal, on Chlorpromazine. he denied any chills or jaundice. He was ambulating uneventfully. Parenteral narcotic analgesics were switched to po Oxycodone on 02/27/18. Review of Systems: Full 14 point ROS otherwise noncontributory, & as above. Review of Systems Constitutional: Reports: weight loss, as inpt. Denies: chills, diaphoresis, fever, malaise, weakness EENTM: Denies: blurred vision, double vision, visual changes, eye pain, eye drainage, eye tearing, icterus, ear discharge, ear pain, ear redness, hearing changes, nasal congestion, epistaxis, nasal pain, throat pain, throat swelling, mouth pain, tooth pain. Cardiovascular: Denies: chest pain, edema, orthopena, palpitations, peripheral edema, syncope. Respiratory: Denies: cough, hemoptysis, orthopnea, short of breath, sputum production, stridor, wheezing. GI: Reports: abdominal pain-> mostly gone; nausea-> mostly gone. Occ hiccoughs (mild )-> Chlorpromazine. Denies: bloating, vomiting, constipation, diarrhea, distention, bowel incontinence, melena, bloody stool, changes in stool, steatorrhea. Genitourinary: Denies: discharge, dysuria, frequency, hematuria, hesitation, nocturia, pain, urgency. Musculoskeletal: Denies: back pain, gout, joint pain, joint swelling, muscle pain, muscle stiffness, neck pain. Skin: Denies: cysts, change in skin color, change in hair/nails, dryness, erythema, jaundice, lesions, lymphangitis, lumps, moles, rash. Neurological/Psychological: Reports: anxiety, emotional problems. Denies: ataxia, cognitive dysfunction, confusion, depressed, dementia, headache, numbness, paresthesia, pre-existing deficit, petit mal seizures, tingling, tremors, tonic-clonic seizures, unable to move lower ext, unable to move upper ext, weakness, other. Hematologic/Endocrine: Denies: bruising, bleeding, polyuria, polydipsia. Immunologic/Allergic: Denies: splenectomy, HIV/AIDS, lymphadenopathy. All Other Systems: Reviewed and Negative Objective Vital Signs and I&Os Vital Signs Date Time Temp Pulse Resp B/P B/P Pulse O2 O2 Flow FiO2 Mean Ox Delivery Rate 02/27 1543 99.2 77 20 120/74 96 Room Air 02/27 0638 98.2 82 18 118/66 97 Room Air Intake & Output 02/27 0400 Intake Total 1090.5 1262.0 1961.4 1717.2 667.0 Output Total 3469 681 7207 1125 2150 540 Balance -879.5 362.0 411.4 -1125 -432.8 127.0 Intake, IV 500 200 50 30 Intake, Lipid 219.0 105.0 233.8 200.0 87.0 Intake, Oral 20 60 0 0 Intake, 871.5 637 1467.6 1467.2 550 TPN/PPN Number 0 0 Bowel Movements Output, Urine 9715 732 0105 1125 2150 540 Patient 193 lb 195 lb 200 lb Weight Weight Bed scale Measurement Method Physical Exam: Well-developed, well-nourished male, in NAD, non-toxic appearing. Sclera anicteric. Conjunctiva pink. Oropharynx clear. No oral thrush. No aphthous ulcers. There is no adenopathy, thyromegaly, or JVD. No peripheral stigmata of inflammatory bowel disease or chronic liver disease on exam. No spiders on the anterior chest wall. No gynecomastia. No CVA tenderness. No spine tenderness. Lungs: clear to A&P, with slight decreased BS at bases B/L. No wheezing, rales, or rhonchi. Heart exam: regular rate rhythm, S1 and S2, without any murmur. Abdominal exam: normal bowel sounds, soft belly, less distended, essentially nontender, without guarding or rebound. No mass. No organomegaly. No definite fluid shift. No epigastric bruit. No pulsatile mass. Multiple scars. Digital rectal exam: previously deferred by patient. Extremities: without C, C, or E. No rash. Clean site at E PICC. Mild DJD. No palmar erythema. No Dupuytren's contractures. No palpable cords. Distal pulses 2+ bilaterally. DTRs 2+ bilaterally. Right handed. CN II-XII prev intact. Motor 5/5 B/L. Alert and oriented x 3. No tremor. No asterixis. Current Medications: Current Medications Sig/Oz Start time Last Medication Dose Route Stop Time Status Admin Acetaminophen 650 MG Q4P PRN 02/18 1630 AC 02/22 PO 1505 Ceftriaxone Sodium 1,000 MG Q24H 02/26 1000 AC 02/27 IV 0918 Chlorpromazine 25 MG Q6P PRN 02/24 1845 AC 02/26 PO 1617 Fat Emulsion 350 ML ONCE ONE 02/27 1900 AC 02/27 Intravenous IV 02/28 Fat Emulsion 500 ML Q24H 02/26 1900 DC 02/26 Intravenous IV 02/27 1859 1955 Gabapentin 300 MG Q8 02/18 1400 AC 02/27 PO 2042 Heparin Sodium 5,000 UNIT Q8 02/04 0600 AC 02/27 (Porcine) SC 2042 Hydromorphone HCl 2 MG Q3P PRN 02/17 1800 AC 02/27 IV 1821 Metoclopramide HCl 10 MG Q8 02/23 1400 DC 02/27 IV 1327 Nicotine 7 MG DAILY PRN 02/27 1359 TOP Nicotine 7 MG DAILY 02/04 09 IA 02/27 TOP 0918 Omeprazole 40 MG DAILY AC 02/07 0700 AC 02/27 PO 0528 Ondansetron HCl 4 MG Q6P PRN 02/04 0245 02/26 IV 1209 Oxycodone HCl 10 MG Q4P PRN 02/23 1100 AC 02/27 PO 2042 Total Parenteral 1 UNIT ONE 02/27 1900 CAN Nutrition IV 02/28 1859 Total Parenteral 1 UNIT ONE 02/27 190 AC 02/27 Nutrition IV 02/28 Total Parenteral 1 UNIT ONE 02/26 190 DC 02/26 Nutrition IV 02/27 [id number] Results Pertinent Lab Results: Laboratory Tests 02/27 02/26 0535 0542 Chemistry Sodium (137 - 145 mmol/L) 130 L 129 L Potassium (3.5 - 5.1 mmol/L) 4.4 4.3 Chloride (98 - 107 mmol/L) 95 L 94 L Carbon Dioxide (22 - 30 mmol/L) 27 27 Anion Gap (5 - 16) 8 8 BUN (9 - 20 mg/dL) 11 11 Creatinine (0.7 - 1.2 mg/dL) 0.6 L 0.6 L Estimated GFR (>60 ml/min) > 60 > 60 BUN/Creatinine Ratio (7 - 25 %) 18.3 18.3 Hematology CBC w Diff NO MAN DIFF REQ NO MAN DIFF REQ WBC (4.8 - 10.8 /CUMM) 10.3 9.1 RBC (4.70 - 6.10 /CUMM) 3.52 L 3.52 L Hgb (14.0 - 18.0 G/DL) 10.5 L 10.5 L Hct (42 - 52 %) 31.0 L 30.9 L MCV (80.0 - 94.0 FL) 88.0 87.8 MCH (27.0 - 31.0 PG) 29.8 30.0 MCHC (33.0 - 37.0 G/DL) 33.9 34.1 RDW (11.5 - 14.5 %) 14.7 H 14.8 H Plt Count (130 - 400 /CUMM) 327 322 MPV (7.4 - 10.4 FL) 8.2 8.2 Gran % (42.2 - 75.2 %) 80.4 H 75.2 Lymphocytes % (20.5 - 51.1 %) 7.2 L 7.3 L Monocytes % (1.7 - 9.3 %) 11.8 H 16.0 H Eosinophils % (0 - 5 %) 0.3 1.3 Basophils % (0.0 - 2.0 %) 0.3 0.2 Absolute Granulocytes (1.4 - 6.5 /CUMM) 8.2 H 6.8 H Absolute Lymphocytes (1.2 - 3.4 /CUMM) 0.7 L 0.7 L Absolute Monocytes (0.10 - 0.60 /CUMM) 1.2 H 1.4 H Absolute Eosinophils (0.0 - 0.7 /CUMM) 0 0.1 Absolute Basophils (0.0 - 0.2 /CUMM) 0 0 09/04 1020 Chemistry Sodium (137 - 145 mmol/L) 130 L Potassium (3.5 - 5.1 mmol/L) 3.9 Chloride (98 - 107 mmol/L) 95 L Carbon Dioxide (22 - 30 mmol/L) 28 Anion Gap (5 - 16) 7 BUN (9 - 20 mg/dL) 10 Creatinine (0.7 - 1.2 mg/dL) 0.6 L Estimated GFR (>60 ml/min) > 60 BUN/Creatinine Ratio (7 - 25 %) 16.7 Magnesium (1.6 - 2.3 mg/dL) 2.0 Triglycerides (<150 mg/dL) 78 Hematology CBC w Diff MAN DIFF ORDERED WBC (4.8 - 10.8 /CUMM) 7.2 RBC (4.70 - 6.10 /CUMM) 3.50 L Hgb (14.0 - 18.0 G/DL) 10.5 L Hct (42 - 52 %) 31.0 L MCV (80.0 - 94.0 FL) 88.6 MCH (27.0 - 31.0 PG) 29.9 MCHC (33.0 - 37.0 G/DL) 33.8 RDW (11.5 - 14.5 %) 14.4 Plt Count (130 - 400 /CUMM) 329 MPV (7.4 - 10.4 FL) 7.8 Gran % (42.2 - 75.2 %) 68.8 Lymphocytes % (20.5 - 51.1 %) 9.6 L Monocytes % (1.7 - 9.3 %) 20.2 H Eosinophils % (0 - 5 %) 1.0 Basophils % (0.0 - 2.0 %) 0.4 Absolute Granulocytes (1.4 - 6.5 /CUMM) 4.9 Segmented Neutrophils (42.2 - 75.2 %) 59 Band Neutrophils (0.0 - 5.0 %) 9 H Absolute Lymphocytes (1.2 - 3.4 /CUMM) 0.7 L Lymphocytes (20.5 - 51.1 %) 15 L Monocytes (1.7 - 9.3 %) 16 H Absolute Monocytes (0.10 - 0.60 /CUMM) 1.4 H Eosinophils (0 - 5.0 %) 1 Absolute Eosinophils (0.0 - 0.7 /CUMM) 0.1 Absolute Basophils (0.0 - 0.2 /CUMM) 0 Platelet Estimate (ADEQUATE) VERIFIED BY SMEAR Normocytic RBCs VERIFIED Normochromic RBCs VERIFIED Imaging/Other Studies: 02/04/18: EKG- SB @ 57, nl axis, [place] .20, no ischemic change. 02/04/18: CT ABDOMEN AND PELVIS WITHOUT IV CONTRAST (*per [facility], limited study w/o IV cont)- Prominent inflammatory changes surrounding the pancreas with edematous appearance of the pancreas. This is suggestive of acute pancreatitis. No PD dilitation. Post CCKY with postop CBD 1.3 cm (chronic), no filling defect. Stable ectatic appearance of the left common iliac artery. Normal AP. No hernia. DJD. 02/04/18: US ABDOMEN COMPLETE- 1. Edematous pancreas with peripancreatic fluid, consistent with acute pancreatitis. 2. The pancreatic head and portions of the tail are not visualized. 3. Intra and extrahepatic ductal dilatation is seen. Common bile duct measuring up to 1 cm. Findings may at least in part be related to the patient's postcholecystectomy state with similar appearance seen on older CT scan from 07/11/2017, at which time, no evidence of acute pancreatitis was seen. In the visualized portions of the common bile duct on today's exam, no filling defect is seen. Distal most CBD is, however, not visualized. Close clinical correlation is requested. 4. Status post cholecystectomy. *Unfortunately, no MRCP available at [facility] on Tuesdays, prohibiting this on . 02/05/18: XRY-CHEST XRAY, TWO VIEWS- No acute cardiopulmonary process. 02/05/18: MR ABDOMEN WITHOUT CONTRAST/MRCP- 1. Acute interstitial pancreatitis is seen with pancreatic parenchymal edema and peripancreatic soft tissue edema and stranding. Associated circumferential wall thickening in the duodenum and proximal jejunum is seen, consistent with sympathetic changes to the pancreatic inflammation. 2. No evidence of variant ductal anatomy. No definite pancreatic head mass seen on noncontrast study. 3. Mild intrahepatic ductal dilatation and moderate extrahepatic ductal dilatation to 1 cm is seen. There is smooth tapering of the common bile duct to 0.4 cm in the preampullary region with no evidence of choledocholithiasis. Findings may be related to the patient's postcholecystectomy state. 4. A few scattered bilateral renal cysts are incidentally seen. 02/09/18: CT ABD & PELVIS W ORAL & IV CONT- Interval increase in pancreatic edema with increasing abdominal fluid likely [employer] of progressing pancreatitis. Right greater than left bilateral pleural effusions with associated airspace disease. 02/13/18: XRY-CHEST XRAY, TWO VIEWS- Bibasilar subsegmental atelectasis with small right more than left pleural effusions. No dense consolidation. 02/14/18: XRY-PORTABLE CHEST XRAY- Bilateral pleural effusions with bibasilar airspace opacity, consolidation atelectasis. These basilar densities are greater at the right lung base than the left. 02/15/18: [id number] VIEWS- No evidence of free air or air-fluid levels to suggest any perforation or obstruction. No organomegaly. 02/15/18: CT ABD & PELVIS W IV CONTRAST- 1. Similar appearance of the pancreas with diffuse edema without definite areas of necrosis. There are acute peripancreatic fluid collections seen, possibly decreasing since the prior study as detailed above. There is slightly increased organization with thin enhancing mascorro. 2. Right colonic wall thickening and submucosal fat proliferation, new since 11/22/2017. Whether this is representing acute colitis versus reaction to the closely adjacent fluid collections and pancreatitis is unclear. Clinical correlation requested. 3. Other chronic, nonacute findings as above. 02/18/18: XRY-CHEST XRAY, TWO VIEWS- Stable bibasilar airspace disease and small pleural effusions. : CT ABDOMEN WITHOUT AND WITH CONTRAST Unchanged inflammatory process involving the pancreas with peripancreatic fluid collections with one more organized discrete collection on the right abdomen just beneath the liver. *This is the collection for which a request has been made to aspirate tomorrow. The associated right colonic wall thickening and inflammatory changes remain present as well. 02/20/18: *ULTRASOUND-GUIDED ASPIRATION OF A PANCREATIC PSEUDOCYST- Diagnostic aspiration 18 cc light olivo, cloudy fluid, performed of the patient's right upper quadrant, subhepatic pseudocysts under sonographic guidance without evidence of complications. Specimens were sent to the laboratory for C&S, cell count with diff, and amylase as requested. 02/20/18: XRY-PORTABLE CHEST XRAY- (post PCC). The right arm peripherally inserted catheter is in satisfactory position. Persistent small pleural effusions and bibasilar atelectasis. 02/26/18: CT ABDOMEN WITHOUT AND WITH IV CONTRAST (personally reviewed by myself with Dr. Lombardi, of [facility], on 02/26/18 at 6:25 p.m.)- IMPRESSION: 1. There is increased peripancreatic fluid and soft tissue density compared to the prior study. The pancreatic parenchyma has lower attenuation compared to prior imaging, which may be consistent with evolving necrotic changes. 2. The discrete fluid collection along the ventral head of the pancreas is no longer visualized. There is extensive loculated fluid in the right abdomen extending inferiorly and posterior to the right psoas muscle, not significantly changed compared to the most recent prior study. 3. Flow is demonstrated in the splenic and portal veins. 4. Anasarca in the abdominal mascorro appears similar compared to prior imaging. DICTATED BY: Daryn Tucker MD (According to Dr. Lombardi, the RUQ pseudocyst drained by IR 02/20/18 had completely resolved, but per my review with Dr. Roach 02/26/18, it appeared to persist. Extensive fluid in right paracolic gutter & anasarca, without change. Also, lower attenuation of pancreatic parenchyma, with possible evolving necrotic changes.
[2018-02-27 21:25] VITALS: BP 116/70
[2018-02-28 06:06] LABS: ABSOLUTE BASOPHIL COUNT 0 /CUMM (0.0-0.2); ABSOLUTE EOSINOPHIL COUNT 0.1 /CUMM (0.0-0.7); ABSOLUTE GRANULOCYTE CT 10.2 /CUMM (1.4-6.5); ABSOLUTE LYMPH COUNT 0.8 /CUMM (1.2-3.4); ABSOLUTE MONOCYTE COUNT 1.1 /CUMM (0.10-0.60); BASOPHIL % 0.2 % (0.0-2.0); EOSINOPHIL % 0.7 % (0-5); GRANULOCYTE % 83.7 % (42.2-75.2); HEMATOCRIT 31.2 % (42-52); MEAN CORPUSCULAR HGB 29.8 PG (27.0-31.0); MEAN CORPUSCULAR HGB CONC 33.9 G/DL (33.0-37.0); MEAN CORPUSCULAR VOLUME 87.7 FL (80.0-94.0); MEAN PLATELET VOLUME 7.7 FL (7.4-10.4); PLATELET COUNT 338 /CUMM (130-400); RBC DISTRIBUTION WIDTH 14.9 % (11.5-14.5); RED BLOOD CELL CT 3.56 /CUMM (4.70-6.10); WHITE BLOOD CELL COUNT 12.2 /CUMM (4.8-10.8)
--- NOTE | 2018-02-28 06:51 | PN- Housestaff ---
Subjective Follow-up For: Smoldering pancreatitis Pseudocyst Unable to tolerate po requiring TPN Subjective: Seen and examined at bedside. He denies any increased abdominal pain, n/v. He has been able to tolerate sips of water. Remains afebrile since 02/19 On TPN day 8. Review of Systems Constitutional: Reports: see HPI. Objective Last 24 Hrs of Vital Signs/I&O Vital Signs Date Time Temp Pulse Resp B/P B/P Pulse O2 O2 Flow FiO2 Mean Ox Delivery Rate 02/28 711 98.3 88 22 112/60 94 02/27 2125 99.3 80 22 116/70 95 Room Air 02/27 1543 99.2 77 20 120/74 96 Room Air Intake & Output 02/28 1600 02/28 0800 02/28 0000 Intake Total 850.4 212.6 Output Total 500 400 Balance 350.4 -187.4 Intake, IV 733.6 Intake, Lipid 29.2 Intake, Oral 0 0 Intake, 116.8 183.4 TPN/PPN Output, Urine 500 400 Patient 86.778 kg Weight Physical Exam General Appearance: Alert, Oriented X3, Cooperative Cardiovascular: Regular Rate, Normal S1, Normal S2 Lungs: Clear to Auscultation, Normal Air Movement Abdomen: Normal Bowel Sounds, Soft, mild tenderness on deep plapation of right abdomen Current Medications: Current Medications Sig/Oz Start time Last Medication Dose Route Stop Time Status Admin Acetaminophen 650 MG Q4P PRN 02/18 1630 AC 02/22 PO 1505 Ceftriaxone Sodium 1,000 MG DAILY@1700 02/28 1700 AC 02/28 IV 1813 Ceftriaxone Sodium 1,000 MG Q24H 02/26 1000 OK 02/27 IV 0918 Chlorpromazine 25 MG Q6P PRN 02/24 1845 02/28 PO 0221 Ciprofloxacin 500 MG BID 02/28 0945 OK 02/28 PO 03/04 0944 1114 Fat Emulsion 350 ML Q24H 02/28 190 Intravenous IV 03/01 185 Fat Emulsion 350 ML ONCE ONE 02/27 1900 OK 02/27 Intravenous IV 02/28 185 1952 Gabapentin 300 MG Q8 02/18 1400 AC 02/28 PO 1346 Heparin Sodium 5,000 UNIT Q8 02/04 0600 AC 02/28 (Porcine) SC 1345 Hydromorphone HCl 2 MG Q3P PRN 02/17 1800 AC 02/28 IV 1706 Nicotine 7 MG DAILY PRN 02/27 1359 AC TOP Omeprazole 40 MG DAILY AC 02/07 0700 AC 02/28 PO 0524 Ondansetron HCl 4 MG Q6P PRN 02/04 0245 AC 02/26 IV 1209 Oxycodone HCl 10 MG Q4P PRN 02/23 1100 AC 02/28 PO 1931 Sodium Chloride 1,000 ML Q10H 02/28 1615 AC 02/28 IV 03/01 0214 1624 Total Parenteral 1 UNIT ONE 02/28 190 AC Nutrition IV 03/01 185 Total Parenteral 1 UNIT ONE 02/27 190 CAN Nutrition IV 02/28 1859 Total Parenteral 1 UNIT ONE 02/27 190 DC 02/27 Nutrition IV 02/28 Last 24 Hrs of Lab/Stevne Results Last 24 Hrs of Labs/Mics: Laboratory Tests 02/28/18 0556: Anion Gap 6, Estimated GFR > 60, BUN/Creatinine Ratio 20.0, Calcium 8.1 L, Phosphorus 4.6 H, Magnesium 2.1, Total Bilirubin 0.7, Direct Bilirubin 0.5 H, AST 70 H, ALT 94 H, Alkaline Phosphatase 145 H, Total Protein 6.2 L, Albumin 2.5 L, Prealbumin 4.2 L, Triglycerides 81, CBC w Diff MAN DIFF ORDERED, RBC 3.56 L, MCV 87.7, MCH 29.8, MCHC 33.9, RDW 14.9 H, MPV 7.7, Gran % 83.7 H, Lymphocytes % 6.6 L, Monocytes % 8.8, Eosinophils % 0.7, Basophils % 0.2, Absolute Granulocytes 10.2 H, Segmented Neutrophils 73, Band Neutrophils 1, Absolute Lymphocytes 0.8 L, Lymphocytes 14 L, Monocytes 11 H, Absolute Monocytes 1.1 H, Eosinophils 1, Absolute Eosinophils 0.1, Absolute Basophils 0, Platelet Estimate ADEQUATE, Polychromasia 1+, Ovalocytes FEW, Fld Total RBCs Counted 100 Assessment/Plan Assessment: 52yo M w/ PMH of diverticulitis, kidney stones s/p lithotripsy, gallstones s/p cholecystectomy, s/p Pippa procedure w/ temporary colostomy followed by revision in 2015, s/p hernia repair, reversible ischemia on nuclear stress test status post cardiac cath recently in 2014 presented to [facility] w/ N/V/D/severe intermittent abd pain since 1pm of 02/03/2018, endorsed loose BM, w/ intermittent non-bloody vomiting. Patient is being treated currently for acute pancreatitis with infected necrosis and pseudocyst, now NPO on TPN for 1 week, and remains on ceftriaxone. CT Abdomen 02/26/18 1. There is increased peripancreatic fluid and soft tissue density compared to the prior study. The pancreatic parenchyma has lower attenuation compared to prior imaging, which may be consistent with evolving necrotic changes. 2. The discrete fluid collection along the ventral head of the pancreas is no longer visualized. There is extensive loculated fluid in the right abdomen extending inferiorly and posterior to the right psoas muscle, not significantly changed compared to the most recent prior study. 3. Flow is demonstrated in the splenic and portal veins. 4. Anasarca in the abdominal mascorro appears similar compared to prior imaging. Impression * Smoldering Pancreatitis * Infected pancreatic pseudocyts. Growing E.cloacea * Failure to advance diet requiring Parenteral feeding (TPN) * Hyponatremia Plan Mr Mtz abdominal symptoms seems to be improving albeit he is still NPO with sips allowed (which he is tolerating well). He no longer endorses vomiting, the nausea is still there but much improved. For his infected pancreatic pseudocysts , he remains afebrile since 02/19, he is on ABX (day8). Given the uptrending transmainitis, which could implicate ceftriaxone as the possible culprit, and then need to transition to oral med in anticipation of near discharge, we will swith to ciprofloxacin which has excellent coverage and penetration to the pancrease. We will defer to GI and surgery on when to advance him from NPO to clears. We will continue with TPN with electrolytes tailored to address his hyponatremia(day 8), we will also trend trigs and periodically prealbumin. Pt was encouraged to continue ambulation. Pt will eventually have surgical procedure for his pseudocyts (Dr Dimas).THe plan is to allow for the infection pseudocysts to wall off while pt is taking abx, and in about 4-6 weeks, he will undergo the abdominal surgery. Problem List: 1. Acute pancreatitis with infected necrosis 2. Pseudocyst of pancreas Pain Ratin Pain Location: abdomen Pain Goal: Pain 4 or less Pain Plan: per pathway Tomorrow's Labs & Rationales: cbc LFTS (on TPN)
[2018-02-28 07:11] VITALS: BP 112/60
--- NOTE | 2018-02-28 08:37 | PN- Housestaff ---
Subjective Follow-up For: Smoldering pancreatitis Pseudocyst Unable to tolerate po requiring TPN Subjective: Seen and examined at bedside. He denies any increased abdominal pain, n/v. He has been able to tolerate sips of water. Remains afebrile since 02/19 On TPN day 8. Review of Systems Constitutional: Reports: see HPI. Objective Last 24 Hrs of Vital Signs/I&O Vital Signs Date Time Temp Pulse Resp B/P B/P Pulse O2 O2 Flow FiO2 Mean Ox Delivery Rate 02/28 0711 98.3 88 22 112/60 94 02/27 2125 99.3 80 22 116/70 95 Room Air 02/27 1543 99.2 77 20 120/74 96 Room Air Intake & Output 02/28 1600 02/28 0800 02/28 0000 Intake Total 850.4 212.6 Output Total 500 400 Balance 350.4 -187.4 Intake, IV 733.6 Intake, Lipid 29.2 Intake, Oral 0 0 Intake, 116.8 183.4 TPN/PPN Output, Urine 500 400 Patient 86.778 kg Weight
--- NOTE | 2018-02-28 13:42 | PN- Gastroenterology ---
Assessment/Plan GI Assessment/Recommendations: ASSESSMENT: 1. Pancreatic Pseudocyst 2. Pancreatitis -- unalble to tolerate enteral nutrition, on TPN. 3. Elevated transaminases -- likely due to ceftriaxone as well as underlying pancreatitis. They appear to be trending downwards so would not change antibiotics at this point. 4. Infected Necrosis -- appears to have responded to Ceftriaxone RECOMMENDATIONS: 1. Would continue Ceftriaxone 2. Continue TPN and intralipids, would not start oral intake at this time. 3. Will discuss with Dr. Roach and Dr. Truong regarding plans for surgical versus endoscopic drainage. 4. For now would continue conservative treatment. Subjective Subjective: Patient is doing much better. He is still requiring TPN. No vomiting but persistent nausea. Patient had CT of abdomen on 02/26, the results of which are as follows: PANCREAS: The study redemonstrates the edematous pancreas. There are more discrete peripancreatic fluid collections along the anterior and superior aspect of the body and tail, and there is increased density in the peripancreatic fat. The pancreatic parenchyma appears more edematous compared to prior imaging. The previously noted discrete fluid collection with a focus of air along the ventral pancreatic head is no longer discretely visualized. The study redemonstrates loculated fluid in the right abdomen extending inferiorly and posteriorly. The fluid collection extends posterior to the right psoas muscle, better demonstrated on the current study due to technique. Mild inflammatory changes are noted around the large bowel in the region. Objective Vital Signs and I&Os Vital Signs Date Time Temp Pulse Resp B/P B/P Pulse O2 O2 Flow FiO2 Mean Ox Delivery Rate 02/28 0711 98.3 88 22 112/60 94 02/27 2125 99.3 80 22 116/70 95 Room Air 02/27 1543 99.2 77 20 120/74 96 Room Air Intake & Output 02/28 1600 02/28 0400 02/27 1600 02/27 0400 02/26 1600 02/26 0400 Intake Total 850.4 212.6 1090.5 1262.0 1961.4 Output Total 121 538 2966 900 1550 1125 Balance 350.4 -187.4 -879.5 362.0 411.4 -1125 Intake, IV 733.6 500 200 Intake, Lipid 29.2 219.0 105.0 233.8 Intake, Oral 0 0 20 60 Intake, 116.8 183.4 871.5 637 1467.6 TPN/PPN Number 0 Bowel Movements Output, Urine 711 112 7127 900 1550 1125 Patient 191 lb 193 lb 195 lb Weight Physical Exam General Appearance: alert, awake, comfortable Head: atraumatic, normal appearance Neck: supple, full range of motion Respiratory: lungs clear Cardiovascular: regular rate/rhythm, Normal S1 and S2 without rub, murmur or gallop Abdomen: normal bowel sounds, soft Neurologic/Psychiatric: oriented x 3, normal mood/affect Skin: intact, normal color, warm/dry Current Medications: Current Medications Sig/Oz Start time Last Medication Dose Route Stop Time Status Admin Acetaminophen 650 MG Q4P PRN 02/18 1630 AC 02/22 PO 1505 Ceftriaxone Sodium 1,000 MG Q24H 02/26 1000 DC 02/27 IV 0918 Chlorpromazine 25 MG Q6P PRN 02/24 1845 AC 02/28 PO 0221 Ciprofloxacin 500 MG BID 02/28 0945 AC 02/28 PO 03/04 0944 1114 Fat Emulsion 350 ML Q24H 02/28 190 Intravenous IV 03/01 185 Fat Emulsion 350 ML ONCE ONE 02/27 1900 AC 02/27 Intravenous IV 02/28 185 1952 Fat Emulsion 500 ML Q24H 02/26 1900 DC 02/26 Intravenous IV 02/27 185 1955 Gabapentin 300 MG Q8 02/18 1400 AC 02/28 PO 0523 Heparin Sodium 5,000 UNIT Q8 02/04 0600 AC 02/28 (Porcine) SC 0523 Hydromorphone HCl 2 MG Q3P PRN 02/17 1800 AC 02/28 IV 0957 Metoclopramide HCl 10 MG Q8 02/23 1400 DC 02/27 IV 1327 Nicotine 7 MG DAILY PRN 02/27 1359 TOP Nicotine 7 MG DAILY 02/04 09 DC 02/27 TOP 0918 Omeprazole 40 MG DAILY AC 02/07 0700 AC 02/28 PO 0524 Ondansetron HCl 4 MG Q6P PRN 02/04 0245 AC 02/26 IV 1209 Oxycodone HCl 10 MG Q4P PRN 02/23 1100 AC 02/28 PO 0727 Total Parenteral 1 UNIT ONE 02/28 190 AC Nutrition IV 03/01 185 Total Parenteral 1 UNIT ONE 02/27 190 CAN Nutrition IV 02/28 1859 Total Parenteral 1 UNIT ONE 02/27 1900 AC 02/27 Nutrition IV 02/28 Total Parenteral 1 UNIT ONE 02/26 1900 DC 02/26 Nutrition IV 02/27 Results Pertinent Lab Results: Laboratory Tests 02/28 02/27 0556 0535 Chemistry Sodium (137 - 145 mmol/L) 130 L 130 L Potassium (3.5 - 5.1 mmol/L) 4.3 4.4 Chloride (98 - 107 mmol/L) 96 L 95 L Carbon Dioxide (22 - 30 mmol/L) 28 27 Anion Gap (5 - 16) 6 8 BUN (9 - 20 mg/dL) 12 11 Creatinine (0.7 - 1.2 mg/dL) 0.6 L 0.6 L Estimated GFR (>60 ml/min) > 60 > 60 BUN/Creatinine Ratio (7 - 25 %) 20.0 18.3 Calcium (8.4 - 10.2 mg/dL) 8.1 L Phosphorus (2.5 - 4.5 mg/dL) 4.6 H Magnesium (1.6 - 2.3 mg/dL) 2.1 Total Bilirubin (0.2 - 1.3 mg/dL) 0.7 Direct Bilirubin (< 0.4 mg/dL) 0.5 H AST (17 - 59 U/L) 70 H ALT (21 - 72 U/L) 94 H Alkaline Phosphatase (< 127 U/L) 145 H Total Protein (6.3 - 8.2 g/dL) 6.2 L Albumin (3.5 - 5.0 g/dL) 2.5 L Prealbumin (17.6 - 36.0 mg/dL) 4.2 L Triglycerides (<150 mg/dL) 81 Hematology CBC w Diff MAN DIFF ORDERED NO MAN DIFF REQ WBC (4.8 - 10.8 /CUMM) 12.2 H 10.3 RBC (4.70 - 6.10 /CUMM) 3.56 L 3.52 L Hgb (14.0 - 18.0 G/DL) 10.6 L 10.5 L Hct (42 - 52 %) 31.2 L 31.0 L MCV (80.0 - 94.0 FL) 87.7 88.0 MCH (27.0 - 31.0 PG) 29.8 29.8 MCHC (33.0 - 37.0 G/DL) 33.9 33.9 RDW (11.5 - 14.5 %) 14.9 H 14.7 H Plt Count (130 - 400 /CUMM) 338 327 MPV (7.4 - 10.4 FL) 7.7 8.2 Gran % (42.2 - 75.2 %) 83.7 H 80.4 H Lymphocytes % (20.5 - 51.1 %) 6.6 L 7.2 L Monocytes % (1.7 - 9.3 %) 8.8 11.8 H Eosinophils % (0 - 5 %) 0.7 0.3 Basophils % (0.0 - 2.0 %) 0.2 0.3 Absolute Granulocytes (1.4 - 6.5 /CUMM) 10.2 H 8.2 H Segmented Neutrophils (42.2 - 75.2 %) 73 Band Neutrophils (0.0 - 5.0 %) 1 Absolute Lymphocytes (1.2 - 3.4 /CUMM) 0.8 L 0.7 L Lymphocytes (20.5 - 51.1 %) 14 L Monocytes (1.7 - 9.3 %) 11 H Absolute Monocytes (0.10 - 0.60 /CUMM) 1.1 H 1.2 H Eosinophils (0 - 5.0 %) 1 Absolute Eosinophils (0.0 - 0.7 /CUMM) 0.1 0 Absolute Basophils (0.0 - 0.2 /CUMM) 0 0 Platelet Estimate (ADEQUATE) ADEQUATE Polychromasia 1+ Ovalocytes FEW Other Body Source Fld Total RBCs Counted (%) 100 09/05 0542 Chemistry Sodium (137 - 145 mmol/L) 129 L Potassium (3.5 - 5.1 mmol/L) 4.3 Chloride (98 - 107 mmol/L) 94 L Carbon Dioxide (22 - 30 mmol/L) 27 Anion Gap (5 - 16) 8 BUN (9 - 20 mg/dL) 11 Creatinine (0.7 - 1.2 mg/dL) 0.6 L Estimated GFR (>60 ml/min) > 60 BUN/Creatinine Ratio (7 - 25 %) 18.3 Hematology CBC w Diff NO MAN DIFF REQ WBC (4.8 - 10.8 /CUMM) 9.1 RBC (4.70 - 6.10 /CUMM) 3.52 L Hgb (14.0 - 18.0 G/DL) 10.5 L Hct (42 - 52 %) 30.9 L MCV (80.0 - 94.0 FL) 87.8 MCH (27.0 - 31.0 PG) 30.0 MCHC (33.0 - 37.0 G/DL) 34.1 RDW (11.5 - 14.5 %) 14.8 H Plt Count (130 - 400 /CUMM) 322 MPV (7.4 - 10.4 FL) 8.2 Gran % (42.2 - 75.2 %) 75.2 Lymphocytes % (20.5 - 51.1 %) 7.3 L Monocytes % (1.7 - 9.3 %) 16.0 H Eosinophils % (0 - 5 %) 1.3 Basophils % (0.0 - 2.0 %) 0.2 Absolute Granulocytes (1.4 - 6.5 /CUMM) 6.8 H Absolute Lymphocytes (1.2 - 3.4 /CUMM) 0.7 L Absolute Monocytes (0.10 - 0.60 /CUMM) 1.4 H Absolute Eosinophils (0.0 - 0.7 /CUMM) 0.1 Absolute Basophils (0.0 - 0.2 /CUMM) 0
[2018-02-28 14:09] VITALS: BP 118/63
[2018-02-28 21:24] VITALS: BP 132/76
[2018-03-01 06:22] VITALS: BP 124/78
[2018-03-01 08:19] LABS: ABSOLUTE BASOPHIL COUNT 0 /CUMM (0.0-0.2); ABSOLUTE EOSINOPHIL COUNT 0.1 /CUMM (0.0-0.7); ABSOLUTE GRANULOCYTE CT 14.2 /CUMM (1.4-6.5); ABSOLUTE LYMPH COUNT 0.7 /CUMM (1.2-3.4); ABSOLUTE MONOCYTE COUNT 1.4 /CUMM (0.10-0.60); BASOPHIL % 0.2 % (0.0-2.0); EOSINOPHIL % 0.6 % (0-5); GRANULOCYTE % 86.4 % (42.2-75.2); HEMATOCRIT 30.9 % (42-52); MEAN CORPUSCULAR HGB CONC 34.5 G/DL (33.0-37.0); MEAN PLATELET VOLUME 8.5 FL (7.4-10.4); PLATELET COUNT 365 /CUMM (130-400); RBC DISTRIBUTION WIDTH 14.6 % (11.5-14.5); RED BLOOD CELL CT 3.55 /CUMM (4.70-6.10); WHITE BLOOD CELL COUNT 16.4 /CUMM (4.8-10.8)
[2018-03-01 08:23] VITALS: BP 128/77
--- NOTE | 2018-03-01 08:37 | PN- Housestaff ---
Ifeanyi QUINTERO,Julio 03/01/18 0837: Subjective Follow-up For: Smoldering pancreatitis Pseudocyst Subjective: Seen and examine at bedside. He states "I dont feel good today". He reports nausea but no vomiting. He is afebrile since 02/19, however his WBC has increased. Still on TPN day 9. Review of Systems Constitutional: Reports: see HPI. Objective Last 24 Hrs of Vital Signs/I&O Vital Signs Date Time Temp Pulse Resp B/P B/P Pulse O2 O2 Flow FiO2 Mean Ox Delivery Rate 03/01 0823 98.6 76 18 128/77 99 Room Air 03/01 0622 99.6 83 20 124/78 96 02/28 2124 99.3 80 20 132/76 98 Room Air 02/28 1409 98.6 78 17 118/63 95 Room Air Intake & Output 03/01 1600 03/01 0800 03/01 0000 Intake Total 1311.0 615.0 Output Total 400 1300 400 Balance -400 11.0 215.0 Intake, IV 400 300 Intake, Lipid 117.0 42.0 Intake, Oral 60 Intake, 734 273 TPN/PPN Output, Urine 400 1300 400 Patient 89.358 kg Weight Weight Bed scale Measurement Method Physical Exam General Appearance: Alert, Oriented X3, Cooperative Skin: No Significant Lesion Cardiovascular: Regular Rate, Normal S1, Normal S2 Lungs: Clear to Auscultation, Normal Air Movement Abdomen: mild tenderness to deep palpation of right abdomen Assessment/Plan Assessment: 52yo M w/ PMH of diverticulitis, kidney stones s/p lithotripsy, gallstones s/p cholecystectomy, s/p Pippa procedure w/ temporary colostomy followed by revision in 2015, s/p hernia repair, reversible ischemia on nuclear stress test status post cardiac cath recently in 2014 presented to [facility] w/ N/V/D/severe intermittent abd pain since 1pm of 02/03/2018, endorsed loose BM, w/ intermittent non-bloody vomiting. Patient is being treated currently for acute pancreatitis with infected necrosis and pseudocyst, now NPO on TPN for 1 week, and remains on ceftriaxone. CT Abdomen 02/26/18 1. There is increased peripancreatic fluid and soft tissue density compared to the prior study. The pancreatic parenchyma has lower attenuation compared to prior imaging, which may be consistent with evolving necrotic changes. 2. The discrete fluid collection along the ventral head of the pancreas is no longer visualized. There is extensive loculated fluid in the right abdomen extending inferiorly and posterior to the right psoas muscle, not significantly changed compared to the most recent prior study. 3. Flow is demonstrated in the splenic and portal veins. 4. Anasarca in the abdominal mascorro appears similar compared to prior imaging. Impression * Smoldering Pancreatitis * Infected pancreatic pseudocyts. Growing E.cloacea * Failure to advance diet requiring Parenteral feeding (TPN) * Hyponatremia Plan Mr Mtz is complaining of increased nausea compared to 2 previous days. he is still NPO with sips allowed (which he is tolerating well). For his infected pancreatic pseudocysts, he remains afebrile since 02/19, he is on ABX (day9), However his WBC has increased for the past few days (today its 16.4). We will continue to trend his wbc and watchout for fevers, tachycardia, hypotension as signs of worsening infection. We will defer to GI and surgery on when to advance him from NPO to clears. His Transmainitis is improving. We will continue with TPN with electrolytes tailored to address his hyponatremia(day 9), we will also trend trigs and periodically prealbumin. Pt was encouraged to continue ambulation. Pt will eventually have surgical procedure for his pseudocyts (Dr Dimas).THe plan is to allow for the infection pseudocysts to wall off while pt is taking abx, and in about 4-6 weeks, he will undergo the abdominal surger Problem List: 1. Pseudocyst of pancreas 2. Acute pancreatitis with infected necrosis Pain Ratin Pain Location: abdomen Pain Goal: Remain pain free Pain Plan: per pathway Tomorrow's Labs & Rationales: cbc bep mag ml Pineda MD,[facility] 03/01/18 1101: Attending MD Review Statement Attending Statement Attending MD Statement: examined this patient, discuss w/resident/PA/SPECIAL NEEDS TEACHER, agreed w/resident/PA/SPECIAL NEEDS TEACHER, discussed with family, reviewed EMR data (avail), discussed with nursing, discussed with case mgmt, reviewed images, amended to note Attending Assessment/Plan: seen and examined independently PT with 1. Pancreatic Pseudocyst infected 2. Pancreatitis -- unalble to tolerate enteral nutrition, on TPN. 3. Elevated transaminases -- likely due to ceftriaxone as well as underlying pancreatitis. They appear to be trending downwards so would not change antibiotics at this point. 4. Infected Necrosis -- appears to have responded to Ceftriaxone COnt abx Cont tpn NPO for now
--- NOTE | 2018-03-01 10:10 | RADIOLOGY REPORT ---
EXAMINATION: XR PORTABLE CHEST CLINICAL INFORMATION: Right-sided chest pain worse with breathing. COMPARISON: Chest done on 02/20/2018. TECHNIQUE: Portable frontal view of the chest was obtained. FINDINGS: There is significant improved aeration noted at right lung base with residual smaller airspace disease. The left lung base airspace disease appears nearly completely resolved. The remainder of the lungs bilaterally appear clear. The cardiomediastinal silhouette is within normal limits. There is no pleural effusion present. The right-sided PICC line is in good position with its tip seen projecting at the level of the distal SVC. IMPRESSION: 1. Significant improved aeration at both lung bases with near-complete resolution of the left lung base airspace disease and minimal residual disease within the right lung base. 2. Stable positioning of the right-sided PICC line. 3. No new abnormalities.
--- NOTE | 2018-03-01 10:42 | PN- General Surgery ---
Subjective Subjective: reports new onset of recurrent nausea and vomiting this morning while getting up from bed. also c/o pain in anterior upper right chest. worse with deep breath. no f/c/s. Objective Vital Signs and I&Os Vital Signs Date Time Temp Pulse Resp B/P B/P Pulse O2 O2 Flow FiO2 Mean Ox Delivery Rate 03/01 823 98.6 76 18 128/77 99 Room Air 03/01 06 99.6 83 20 124/78 96 02/28 2124 99.3 80 20 132/76 98 Room Air 02/28 1409 98.6 78 17 118/63 95 Room Air Intake & Output 03/01 0803/01 0000 02/28 1600 02/28 0000 Intake Total 1311.0 615.0 849.6 850.4 212.6 Output Total 1300 400 450 500 400 Balance 11.0 215.0 399.6 350.4 -187.4 Intake, IV 400 300 733.6 Intake, Lipid 117.0 42.0 116.8 29.2 Intake, Oral 60 0 0 Intake, 734 273 732.8 116.8 183.4 TPN/PPN Output, Urine 1300 400 450 500 400 Patient 197 lb 192 lb 191 lb Weight Weight Bed scale Measurement Method Physical Exam: gen; looks well, no distress. overwieght heen; anicteric, perrl,eomi abd; soft, nt, nd. no mass chest, nontender, normal excursion and effort Current Medications: Current Medications Sig/Oz Start time Last Medication Dose Route Stop Time Status Admin Acetaminophen 650 MG Q4P PRN 02/18 1630 AC 02/22 PO 1505 Ceftriaxone Sodium 1,000 MG DAILY@1700 02/28 1700 AC 02/28 IV 1813 Chlorpromazine 25 MG Q6P PRN 02/24 1845 AC 02/28 PO 0221 Ciprofloxacin 500 MG BID 02/28 945 DC 02/28 PO 03/04 944 1114 Fat Emulsion 350 ML Q24H 02/28 1900 AC 02/28 Intravenous IV 03/01 Fat Emulsion 350 ML ONCE ONE 02/27 1900 DC 02/27 Intravenous IV 02/28 Gabapentin 300 MG Q8 02/18 1400 AC 03/01 PO 0551 Heparin Sodium 5,000 UNIT Q8 02/04 0600 AC 03/01 (Porcine) SC 0551 Hydromorphone HCl 2 MG Q3P PRN 02/17 1800 AC 03/01 IV 0800 Nicotine 7 MG DAILY PRN 02/27 1359 AC TOP Omeprazole 40 MG DAILY AC 02/07 0700 AC 03/01 PO 0551 Ondansetron HCl 4 MG Q6P PRN 02/04 0245 AC 03/01 IV 0428 Oxycodone HCl 10 MG Q4P PRN 02/23 1100 AC 03/01 PO 0357 Sodium Chloride 1,000 ML Q10H 02/28 1615 DC 02/28 IV 03/01 0214 1624 Total Parenteral 1 UNIT ONE 02/28 1900 AC 02/28 Nutrition IV 03/01 Total Parenteral 1 UNIT ONE 02/27 1900 DC 02/27 Nutrition IV 02/28 Results Last 48 Hours of Labs: Laboratory Tests 03/01 02/28 0605 0556 Chemistry Sodium (137 - 145 mmol/L) 130 L 130 L Potassium (3.5 - 5.1 mmol/L) 5.0 4.3 Chloride (98 - 107 mmol/L) 95 L 96 L Carbon Dioxide (22 - 30 mmol/L) 24 28 Anion Gap (5 - 16) 11 6 BUN (9 - 20 mg/dL) 13 12 Creatinine (0.7 - 1.2 mg/dL) 0.7 0.6 L Estimated GFR (>60 ml/min) > 60 > 60 BUN/Creatinine Ratio (7 - 25 %) 18.6 20.0 Calcium (8.4 - 10.2 mg/dL) 8.1 L Phosphorus (2.5 - 4.5 mg/dL) 4.6 H Magnesium (1.6 - 2.3 mg/dL) 2.0 2.1 Total Bilirubin (0.2 - 1.3 mg/dL) 0.7 0.7 Direct Bilirubin (< 0.4 mg/dL) 0.6 H 0.5 H AST (17 - 59 U/L) 62 H 70 H ALT (21 - 72 U/L) 88 H 94 H Alkaline Phosphatase (< 127 U/L) 161 H 145 H Total Protein (6.3 - 8.2 g/dL) 6.5 6.2 L Albumin (3.5 - 5.0 g/dL) 2.6 L 2.5 L Prealbumin (17.6 - 36.0 mg/dL) 4.4 L 4.2 L Triglycerides (<150 mg/dL) 80 81 Hematology CBC w Diff MAN DIFF ORDERED MAN DIFF ORDERED WBC (4.8 - 10.8 /CUMM) 16.4 H 12.2 H RBC (4.70 - 6.10 /CUMM) 3.55 L 3.56 L Hgb (14.0 - 18.0 G/DL) 10.6 L 10.6 L Hct (42 - 52 %) 30.9 L 31.2 L MCV (80.0 - 94.0 FL) 87.0 87.7 MCH (27.0 - 31.0 PG) 30.0 29.8 MCHC (33.0 - 37.0 G/DL) 34.5 33.9 RDW (11.5 - 14.5 %) 14.6 H 14.9 H Plt Count (130 - 400 /CUMM) 365 338 MPV (7.4 - 10.4 FL) 8.5 7.7 Gran % (42.2 - 75.2 %) 86.4 H 83.7 H Lymphocytes % (20.5 - 51.1 %) 4.4 L 6.6 L Monocytes % (1.7 - 9.3 %) 8.4 8.8 Eosinophils % (0 - 5 %) 0.6 0.7 Basophils % (0.0 - 2.0 %) 0.2 0.2 Absolute Granulocytes (1.4 - 6.5 /CUMM) 14.2 H 10.2 H Segmented Neutrophils (42.2 - 75.2 %) 84 H 73 Band Neutrophils (0.0 - 5.0 %) 6 H 1 Absolute Lymphocytes (1.2 - 3.4 /CUMM) 0.7 L 0.8 L Lymphocytes (20.5 - 51.1 %) 3 L 14 L Monocytes (1.7 - 9.3 %) 6 11 H Absolute Monocytes (0.10 - 0.60 /CUMM) 1.4 H 1.1 H Eosinophils (0 - 5.0 %) 1 1 Absolute Eosinophils (0.0 - 0.7 /CUMM) 0.1 0.1 Absolute Basophils (0.0 - 0.2 /CUMM) 0 0 Platelet Estimate (ADEQUATE) VERIFIED BY SMEAR ADEQUATE Polychromasia 1+ 1+ Anisocytosis 1+ Ovalocytes FEW Other Body Source Fld Total RBCs Counted (%) 100 Recent Imaging Studies: CXR was personally viewed. no infiltrate or effusion. Assessment/Plan Assessment/Plan Infected pancreatic pseudocyst. Recurrent nausea and vomiting is undoubtedly from pancreatic process. No intervention required. Although there is new symptoms and leukocytosis, would prefer to not re-image with CT as of yet since his examination is benign and CT performed a few days ago without significant change seen. Continue Rx as ordered with npo, tpn and ceftiaxone. repeat blood cultures if spikes or continued worsening leukocytosis.
[2018-03-01 14:37] VITALS: BP 124/70
[2018-03-01 21:08] VITALS: BP 128/77
[2018-03-02 06:20] VITALS: BP 118/76
[2018-03-02 08:16] LABS: ABSOLUTE BASOPHIL COUNT 0 /CUMM (0.0-0.2); ABSOLUTE LYMPH COUNT 0.7 /CUMM (1.2-3.4); MEAN CORPUSCULAR HGB 29.4 PG (27.0-31.0); MEAN PLATELET VOLUME 8.6 FL (7.4-10.4)
[2018-03-02 08:41] LABS: ABSOLUTE EOSINOPHIL COUNT 0 /CUMM (0.0-0.7); ABSOLUTE GRANULOCYTE CT 8.4 /CUMM (1.4-6.5); ABSOLUTE MONOCYTE COUNT 0.8 /CUMM (0.10-0.60); BASOPHIL % 0.3 % (0.0-2.0); EOSINOPHIL % 0.4 % (0-5); MEAN CORPUSCULAR HGB CONC 33.6 G/DL (33.0-37.0); MEAN CORPUSCULAR VOLUME 87.4 FL (80.0-94.0); PLATELET COUNT 283 /CUMM (130-400); RBC DISTRIBUTION WIDTH 14.8 % (11.5-14.5)
[2018-03-02 08:49] LABS: HEMATOCRIT 39.7 % (42-52); RED BLOOD CELL CT 4.55 /CUMM (4.70-6.10)
--- NOTE | 2018-03-02 09:42 | PN- Housestaff ---
Dioni QUINTERO,Pushpa 03/02/18 0941: Subjective Follow-up For: Smoldering pancreatitis Pseudocyst Subjective: Seen and examined. Sitting comfortably in the chair. Does not offer any complaints. Other than mild tenderness in the abdomen. Currently on TPN day 10 Review of Systems Constitutional: Reports: see HPI. Objective Last 24 Hrs of Vital Signs/I&O Vital Signs Date Time Temp Pulse Resp B/P B/P Pulse O2 O2 Flow FiO2 Mean Ox Delivery Rate 03/02 620 97.7 64 20 118/76 97 03/01 2108 98.6 72 20 128/77 100 Room Air 03/01 1437 98.2 70 20 124/70 98 Room Air Intake & Output 03/02 1600 03/02 0800 03/02 0000 Intake Total 911.0 754.1 Output Total 450 1500 1250 Balance -450 -589.0 -495.9 Intake, IV 10 Intake, Lipid 117.0 102.2 Intake, Oral 60 0 Intake, 734 641.9 TPN/PPN Output, 200 Emesis Output, Urine 450 1500 1050 Patient 196 lb Weight Physical Exam General Appearance: Alert, Oriented X3, Cooperative Cardiovascular: Normal S1, Normal S2 Lungs: Clear to Auscultation, Normal Air Movement Abdomen: m ild tenderness on palapation R side of ABD Neurological: Normal Speech Current Medications: Current Medications Sig/Oz Start time Last Medication Dose Route Stop Time Status Admin Acetaminophen 650 MG Q4P PRN 02/18 1630 AC 02/22 PO 1505 Ceftriaxone Sodium 1,000 MG DAILY@1700 02/28 1700 AC 03/01 IV 1629 Chlorpromazine 25 MG Q6P PRN 02/24 1845 AC 02/28 PO 0221 Fat Emulsion 350 ML ONCE ONE 03/02 1900 AC Intravenous IV 03/03 185 Fat Emulsion 350 ML 03/01 1900 AC 03/01 Intravenous IV 03/02 1859 1917 Fat Emulsion 350 ML Q24H 02/28 190 DC 02/28 Intravenous IV 03/01 185 195 Gabapentin 300 MG Q8 02/18 1400 AC 03/02 PO 0541 Heparin Sodium 5,000 UNIT Q8 02/04 0600 AC 03/02 (Porcine) SC 0541 Hydromorphone HCl 2 MG Q3P PRN 02/17 1800 AC 03/02 IV 0955 Nicotine 7 MG DAILY PRN 02/27 1359 AC TOP Omeprazole 40 MG DAILY AC 02/07 0700 AC 03/02 PO 0541 Ondansetron HCl 4 MG Q6P PRN 02/04 0245 AC 03/01 IV 1629 Oxycodone HCl 10 MG Q4P PRN 02/23 1100 AC 03/02 PO 0752 Total Parenteral 1 UNIT ONE 03/02 1900 AC Nutrition IV 03/03 1859 Total Parenteral 1 UNIT 1900 03/01 190 AC 03/01 Nutrition IV 03/02 1859 191 Total Parenteral 1 UNIT ONE 02/28 190 DC 02/28 Nutrition IV 03/01 Last 24 Hrs of Lab/Steven Results Last 24 Hrs of Labs/Mics: Laboratory Tests 03/02/18 0551: Anion Gap 8, Estimated GFR > 60, BUN/Creatinine Ratio 23.3, Magnesium 2.1, Total Bilirubin 0.6, Direct Bilirubin 0.5 H, AST 47, ALT 85 H, Alkaline Phosphatase 151 H, Total Protein 6.5, Albumin 2.5 L, CBC w Diff NO MAN DIFF REQ, RBC 4.55 L, MCV 87.4, MCH 29.4, MCHC 33.6, RDW 14.8 H, MPV 8.6, Gran % 84.0 H, Lymphocytes % 6.9 L, Monocytes % 8.4, Eosinophils % 0.4, Basophils % 0.3, Absolute Granulocytes 8.4 H, Absolute Lymphocytes 0.7 L, Absolute Monocytes 0.8 H, Absolute Eosinophils 0, Absolute Basophils 0 Assessment/Plan Assessment: 52yo M w/ PMH of diverticulitis, kidney stones s/p lithotripsy, gallstones s/p cholecystectomy, s/p Pippa procedure w/ temporary colostomy followed by revision in 2015, s/p hernia repair, reversible ischemia on nuclear stress test status post cardiac cath recently in 2014 presented to [facility] w/ N/V/D/severe intermittent abd pain since 1pm of 02/03/2018, endorsed loose BM, w/ intermittent non-bloody vomiting. Patient is being treated currently for acute pancreatitis with infected necrosis and pseudocyst, now NPO on TPN for 1 week, and remains on ceftriaxone. CT Abdomen 02/26/18 1. There is increased peripancreatic fluid and soft tissue density compared to the prior study. The pancreatic parenchyma has lower attenuation compared to prior imaging, which may be consistent with evolving necrotic changes. 2. The discrete fluid collection along the ventral head of the pancreas is no longer visualized. There is extensive loculated fluid in the right abdomen extending inferiorly and posterior to the right psoas muscle, not significantly changed compared to the most recent prior study. 3. Flow is demonstrated in the splenic and portal veins. 4. Anasarca in the abdominal mascorro appears similar compared to prior imaging. A/P #Smoldering Pancreatitis WITH Infected pancreatic pseudocyts -Remains n.p.o. on TPN day 10, ongoing nausea -He is tolerating sips of water well. -He remains afebrile, white count normalized today. -We will continue to trend his wbc and watchout for fevers, tachycardia, hypotension as signs of worsening infection -Continue ceftriaxone -Repeat CT scan on Saturday -We will follow-up with GI and surgery on when to advance him from NPO to clears. - Pt will eventually have surgical procedure for his pseudocyts (Dr Dimas).The plan is to allow for the infection pseudocysts to wall off while pt is taking abx, and in about 4-6 weeks, he will undergo #Failure to advance diet requiring Parenteral feeding (TPN) On TPN -we will also trend trigs and periodically prealbumin -Adjust TPN as per electrolytes #Transaminitis Secondary to ceftriaxone versus underlying pancreatitis -His Transmainitis is improving. -Alkaline phosphatase is elevated though improved continue to trend #Hyponatremia -We will continue with TPN with electrolytes tailored to address his hyponatremia proving FC/n.p.o. on TPN/DVT prophylaxis with subcutaneous heparin/is ambulating in hallways Problem List: 1. Malnutrition 2. Acute pancreatitis with infected necrosis Pain Ratin Pain Location: R abd Pain Goal: Pain 4 or less Pain Plan: prn Tomorrow's Labs & Rationales: cbc bep prealbumin TAG Edwin QUINTERO,[facility] 03/02/18 1341: Attending MD Review Statement Attending Statement Attending MD Statement: examined this patient, discuss w/resident/PA/LABELING SPECIALIST, agreed w/resident/PA/LABELING SPECIALIST, discussed with family, reviewed EMR data (avail), discussed with nursing, discussed with case mgmt, reviewed images, amended to note Attending Assessment/Plan: PT with 1. Pancreatic Pseudocyst infected 2. Pancreatitis -- unalble to tolerate enteral nutrition, on TPN. 3. Elevated transaminases -- likely due to ceftriaxone as well as underlying pancreatitis. They appear to be trending downwards so would not change antibiotics at this point. 4. Infected Necrosis -- appears to have responded to Ceftriaxone COnt abx Cont tpn NPO for now See surg note
--- NOTE | 2018-03-02 09:43 | PN- General Surgery ---
Subjective Subjective: Patient feels better today. There is persistent pain but unchanged from previous. There was one more episode of vomiting yesterday after my evaluation. Since then he has felt well. There is nausea without emesis. No fevers chills or sweats. patient is frustrated with his slow progress Objective Vital Signs and I&Os Vital Signs Date Time Temp Pulse Resp B/P B/P Pulse O2 O2 Flow FiO2 Mean Ox Delivery Rate 03/02 620 97.7 64 20 118/76 97 03/01 2108 98.6 72 20 128/77 100 Room Air 03/01 1437 98.2 70 20 124/70 98 Room Air Intake & Output 03/02 1600 03/02 0800 03/02 0000 03/01 1600 03/01 0800 03/01 0000 Intake Total 911.0 754.1 911.0 1311.0 615.0 Output Total 1500 6844 645 1858 400 Balance -589.0 -495.9 511.0 11.0 215.0 Intake, IV 10 60 400 300 Intake, Lipid 117.0 102.2 117.0 117.0 42.0 Intake, Oral 60 0 0 60 Intake, 734 641.9 734 734 273 TPN/PPN Number 1 Bowel Movements Output, 200 Emesis Output, Urine 1500 1133 718 6746 400 Patient 196 lb 197 lb Weight Weight Bed scale Measurement Method Physical Exam: General: He looks well looks his stated age in no distress Abdomen soft nontender fullness and mild guarding right upper quadrant. No mass. No hernia. Current Medications: Current Medications Sig/Oz Start time Last Medication Dose Route Stop Time Status Admin Acetaminophen 650 MG Q4P PRN 02/18 1630 AC 02/22 PO 1505 Ceftriaxone Sodium 1,000 MG DAILY@1700 02/28 1700 AC 03/01 IV 1629 Chlorpromazine 25 MG Q6P PRN 02/24 1845 AC 02/28 PO 0221 Fat Emulsion 350 [place] [address]003/01 190 AC 03/01 Intravenous IV 03/02 185 1917 Fat Emulsion 350 ML Q24H 02/28 1900 DC 02/28 Intravenous IV 03/01 185 195 Gabapentin 300 MG Q8 02/18 1400 AC 03/02 PO 0541 Heparin Sodium 5,000 UNIT Q8 02/04 0600 AC 03/02 (Porcine) SC 0541 Hydromorphone HCl 2 MG Q3P PRN 02/17 1800 AC 03/02 IV 0548 Nicotine 7 MG DAILY PRN 02/27 1359 AC TOP Omeprazole 40 MG DAILY AC 02/07 0700 AC 03/02 PO 0541 Ondansetron HCl 4 MG Q6P PRN 02/04 0245 AC 03/01 IV 1629 Oxycodone HCl 10 MG Q4P PRN 02/23 1100 AC 03/02 PO 0752 Total Parenteral 1 UNIT 1900 03/01 190 AC 03/01 Nutrition IV 03/02 Total Parenteral 1 UNIT ONE 02/28 1900 DC 02/28 Nutrition IV 03/01 Results Last 48 Hours of Labs: Laboratory Tests 03/02 03/01 0551 0605 Chemistry Sodium (137 - 145 mmol/L) 133 L 130 L Potassium (3.5 - 5.1 mmol/L) 4.7 5.0 Chloride (98 - 107 mmol/L) 98 95 L Carbon Dioxide (22 - 30 mmol/L) 26 24 Anion Gap (5 - 16) 8 11 BUN (9 - 20 mg/dL) 14 13 Creatinine (0.7 - 1.2 mg/dL) 0.6 L 0.7 Estimated GFR (>60 ml/min) > 60 > 60 BUN/Creatinine Ratio (7 - 25 %) 23.3 18.6 Magnesium (1.6 - 2.3 mg/dL) 2.1 2.0 Total Bilirubin (0.2 - 1.3 mg/dL) 0.6 0.7 Direct Bilirubin (< 0.4 mg/dL) 0.5 H 0.6 H AST (17 - 59 U/L) 47 62 H ALT (21 - 72 U/L) 85 H 88 H Alkaline Phosphatase (< 127 U/L) 151 H 161 H Total Protein (6.3 - 8.2 g/dL) 6.5 6.5 Albumin (3.5 - 5.0 g/dL) 2.5 L 2.6 L Prealbumin (17.6 - 36.0 mg/dL) 4.4 L Triglycerides (<150 mg/dL) 80 Hematology CBC w Diff NO MAN DIFF REQ MAN DIFF ORDERED WBC (4.8 - 10.8 /CUMM) 10.0 16.4 H RBC (4.70 - 6.10 /CUMM) 4.55 L 3.55 L Hgb (14.0 - 18.0 G/DL) 13.4 L 10.6 L Hct (42 - 52 %) 39.7 L 30.9 L MCV (80.0 - 94.0 FL) 87.4 87.0 MCH (27.0 - 31.0 PG) 29.4 30.0 MCHC (33.0 - 37.0 G/DL) 33.6 34.5 RDW (11.5 - 14.5 %) 14.8 H 14.6 H Plt Count (130 - 400 /CUMM) 283 365 MPV (7.4 - 10.4 FL) 8.6 8.5 Gran % (42.2 - 75.2 %) 84.0 H 86.4 H Lymphocytes % (20.5 - 51.1 %) 6.9 L 4.4 L Monocytes % (1.7 - 9.3 %) 8.4 8.4 Eosinophils % (0 - 5 %) 0.4 0.6 Basophils % (0.0 - 2.0 %) 0.3 0.2 Absolute Granulocytes (1.4 - 6.5 /CUMM) 8.4 H 14.2 H Segmented Neutrophils (42.2 - 75.2 %) 84 H Band Neutrophils (0.0 - 5.0 %) 6 H Absolute Lymphocytes (1.2 - 3.4 /CUMM) 0.7 L 0.7 L Lymphocytes (20.5 - 51.1 %) 3 L Monocytes (1.7 - 9.3 %) 6 Absolute Monocytes (0.10 - 0.60 /CUMM) 0.8 H 1.4 H Eosinophils (0 - 5.0 %) 1 Absolute Eosinophils (0.0 - 0.7 /CUMM) 0 0.1 Absolute Basophils (0.0 - 0.2 /CUMM) 0 0 Platelet Estimate (ADEQUATE) VERIFIED BY SMEAR Polychromasia 1+ Anisocytosis 1+ Assessment/Plan Assessment/Plan Infected pancreatic pseudocyst. Patient is interested in starting a diet. Given his ongoing nausea and intermittent emesis, I do not feel he will be able to tolerate enough oral intake to come off TPN. If he wants a trial of liquids, I would start with water. Plan will be to repeat a CT scan on Saturday. Until then continue TPN and IV antibiotics.
[2018-03-02 14:32] VITALS: BP 114/68
[2018-03-02 21:18] VITALS: BP 109/73
[2018-03-03 05:57] LABS: ABSOLUTE EOSINOPHIL COUNT 0 /CUMM (0.0-0.7); ABSOLUTE MONOCYTE COUNT 1.1 /CUMM (0.10-0.60); MEAN CORPUSCULAR HGB 29.5 PG (27.0-31.0); MEAN PLATELET VOLUME 8.2 FL (7.4-10.4); RED BLOOD CELL CT 3.53 /CUMM (4.70-6.10)
[2018-03-03 06:04] LABS: ABSOLUTE BASOPHIL COUNT 0 /CUMM (0.0-0.2); ABSOLUTE GRANULOCYTE CT 13.2 /CUMM (1.4-6.5); BASOPHIL % 0.2 % (0.0-2.0); EOSINOPHIL % 0.1 % (0-5); MEAN CORPUSCULAR HGB CONC 34.1 G/DL (33.0-37.0); MEAN CORPUSCULAR VOLUME 86.4 FL (80.0-94.0); PLATELET COUNT 386 /CUMM (130-400)
[2018-03-03 06:05] LABS: WHITE BLOOD CELL COUNT 15.3 /CUMM (4.8-10.8)
[2018-03-03 06:13] LABS: HEMATOCRIT 30.5 % (42-52)
[2018-03-03 06:38] VITALS: BP 107/71
--- NOTE | 2018-03-03 07:12 | PN- Housestaff ---
Subjective Follow-up For: SMOLDERING PANCREATITIS INFECTED PANCREATIC PSEUDOCYTST Subjective: seen and examined at bedside. Nausea still present but no vomiting. Abdominal pain controlled afebrile o/n Review of Systems Constitutional: Reports: see HPI. Objective Last 24 Hrs of Vital Signs/I&O Vital Signs Date Time Temp Pulse Resp B/P B/P Pulse O2 O2 Flow FiO2 Mean Ox Delivery Rate 03/04 0642 98.4 85 20 110/70 95 Room Air 03/03 2152 99.1 77 20 100/58 95 Room Air 03/03 1600 93 Room Air Room Air 03/03 1400 99.1 80 20 133/97 96 Room Air Intake & Output 03/04 0800 03/04 0000 03/03 1600 Intake Total 850.4 483.6 295 Output Total 850 900 325 Balance 0.4 -416.4 -30 Intake, Lipid 116.8 116.8 Intake, Oral 20 Intake, 733.6 366.8 275 TPN/PPN Number 1 Bowel Movements Output, 50 Emesis Output, Urine 800 900 325 Physical Exam General Appearance: Alert, Oriented X3, Cooperative Cardiovascular: Regular Rate, Normal S1, Normal S2 Lungs: Clear to Auscultation, Normal Air Movement Abdomen: Normal Bowel Sounds, Soft, mild tenderness on deep palpation on right abdominal area Assessment/Plan Assessment: 52yo M w/ PMH of diverticulitis, kidney stones s/p lithotripsy, gallstones s/p cholecystectomy, s/p Pippa procedure w/ temporary colostomy followed by revision in 2015, s/p hernia repair, reversible ischemia on nuclear stress test status post cardiac cath recently in 2014 presented to [facility] w/ N/V/D/severe intermittent abd pain since 1pm of 02/03/2018, endorsed loose BM, w/ intermittent non-bloody vomiting. Patient is being treated currently for acute pancreatitis with infected necrosis and pseudocyst, now NPO on TPN for 1 week, and remains on ceftriaxone. CT Abdomen 02/26/18 1. There is increased peripancreatic fluid and soft tissue density compared to the prior study. The pancreatic parenchyma has lower attenuation compared to prior imaging, which may be consistent with evolving necrotic changes. 2. The discrete fluid collection along the ventral head of the pancreas is no longer visualized. There is extensive loculated fluid in the right abdomen extending inferiorly and posterior to the right psoas muscle, not significantly changed compared to the most recent prior study. 3. Flow is demonstrated in the splenic and portal veins. 4. Anasarca in the abdominal mascorro appears similar compared to prior imaging. A/P #Smoldering Pancreatitis WITH Infected pancreatic pseudocyts -Remains n.p.o. on TPN day 11, ongoing nausea -He is tolerating sips of water well. -He remains afebrile, white count increased today(?). -We will continue to trend his wbc and watchout for fevers, tachycardia, hypotension as signs of worsening infection -Continue ceftriaxone -Repeat CT scan on Saturday -We will follow-up with GI and surgery on when to advance him from NPO to clears. - Pt will eventually have surgical procedure for his pseudocyts (Dr Dimas).The plan is to allow for the infection pseudocysts to wall off while pt is taking abx, and in about 4-6 weeks, he will undergo #Failure to advance diet requiring Parenteral feeding (TPN) On TPN (on day 11) -we will also trend trigs and periodically prealbumin -Adjust TPN as per electrolytes #Transaminitis Secondary to ceftriaxone versus underlying pancreatitis -His Transmainitis is improving. -Alkaline phosphatase is elevated though improved continue to trend #Hyponatremia -We will continue with TPN with electrolytes tailored to address his hyponatremia proving FC/n.p.o. on TPN/DVT prophylaxis with subcutaneous heparin/is ambulating in hallways Problem List: 1. Pancreatitis Pain Ratin Pain Location: abdominal pain Pain Goal: Remain pain free Pain Plan: PER PATHWAY Tomorrow's Labs & Rationales: LOU
--- NOTE | 2018-03-03 10:42 | PN- Att Addend ---
Attending Addendum Attending Brief Note Still having pains still not able to eat little sips he has pain. Enteral feedings continue. White count 15,300. Vital signs are stable no fever. No new changes on physical. Appreciate GI and surgery's input and recommendations. He will have x-ray imaging on Saturday and after that we will decide what else has to be done. Continue pain management.. Intake & Output 03/03 1600 03/01 040 Intake Total 850.4 1206.0 754.1 2222.0 615.0 Output Total 016 523 2547 1250 1700 400 Balance 550.4 -800 -1094.0 -495.9 522.0 215.0 Intake, IV 10 460 300 Intake, Lipid 116.8 117.0 102.2 234.0 42.0 Intake, Oral 80 0 60 Intake, 733.6 1009 641.9 1468 273 TPN/PPN Number 1 Bowel Movements Output, 200 Emesis Output, Urine 602 436 9399 1050 1700 400 Patient 206 lb 196 lb 197 lb Weight Weight Bed scale Bed scale Measurement Method Current Medications Sig/Oz Start time Last Medication Dose Route Stop Time Status Admin Acetaminophen 650 MG Q4P PRN 02/18 1630 AC 02/22 PO 1505 Ceftriaxone Sodium 1,000 MG DAILY@1700 02/28 1700 AC 03/02 IV 1705 Chlorpromazine 25 MG Q6P PRN 02/24 1845 AC 02/28 PO 0221 Fat Emulsion 350 ML Q24H 03/03 190 AC Intravenous IV 03/04 185 Fat Emulsion 350 ML ONCE ONE 03/02 190 AC 03/02 Intravenous IV 03/03 185 191 Fat Emulsion 350 ML 03/01 1900 DC 03/01 Intravenous IV 03/02 185 191 Gabapentin 300 MG Q8 02/18 1400 AC 03/03 PO 0440 Heparin Sodium 5,000 UNIT Q8 02/04 06 AC 03/03 (Porcine) SC 0447 Hydromorphone HCl 2 MG Q3P PRN 02/17 1800 AC 03/03 IV 0845 Nicotine 7 MG DAILY PRN 02/27 1359 AC TOP Omeprazole 40 MG DAILY AC 02/07 0700 AC 03/03 PO 0440 Ondansetron HCl 4 MG Q6P PRN 02/04 0245 03/01 IV 1629 Oxycodone HCl 10 MG Q4P PRN 02/23 1100 03/03 PO 0633 Patient Medication 1 ED ONE ONE 03/03 1030 [facility] ED 03/03 1031 Total Parenteral 1 UNIT 03/03 Nutrition IV 03/04 1859 Total Parenteral 1 UNIT ONE 03/02 1900 AC 03/02 Nutrition IV 03/03 Total Parenteral 1 UNIT 03/01 DC 03/01 Nutrition IV 03/02 Laboratory Tests 03/03/18 0530: Anion Gap 9, Estimated GFR > 60, BUN/Creatinine Ratio 22.9, Calcium 8.1 L, Phosphorus 4.4, Magnesium 1.9, Total Bilirubin 0.7, Direct Bilirubin 0.5 H, AST 65 H, ALT 83 H, Alkaline Phosphatase 183 H, Total Protein 6.6, Albumin 2.6 L , Prealbumin 6.5 L, Triglycerides 83, CBC w Diff MAN DIFF ORDERED, RBC 3.53 L, MCV 86.4, MCH 29.5, MCHC 34.1, RDW 15.0 H, MPV 8.2, Gran % 86.0 H, Lymphocytes % 6.4 L, Monocytes % 7.3, Eosinophils % 0.1, Basophils % 0.2, Absolute Granulocytes 13.2 H, Absolute Lymphocytes 1.0 L, Absolute Monocytes 1.1 H, Absolute Eosinophils 0, Absolute Basophils 0, Platelet Estimate ADEQUATE, Polychromasia 1+, Hypochromic-Microcytic 1+ 03/02/18 0551: Anion Gap 8, Estimated GFR > 60, BUN/Creatinine Ratio 23.3, Calcium 7.9 L, Phosphorus 4.4, Magnesium 2.1, Total Bilirubin 0.6, Direct Bilirubin 0.5 H, AST 47, ALT 85 H, Alkaline Phosphatase 151 H, Total Protein 6.5, Albumin 2.5 L, CBC w Diff NO MAN DIFF REQ, RBC 4.55 L, MCV 87.4, MCH 29.4, MCHC 33.6, RDW 14.8 H, MPV 8.6, Gran % 84.0 H, Lymphocytes % 6.9 L, Monocytes % 8.4, Eosinophils % 0.4, Basophils % 0.3, Absolute Granulocytes 8.4 H, Absolute Lymphocytes 0.7 L, Absolute Monocytes 0.8 H, Absolute Eosinophils 0, Absolute Basophils 0 03/01/18 0605: Anion Gap 11, Estimated GFR > 60, BUN/Creatinine Ratio 18.6, Magnesium 2.0, Total Bilirubin 0.7, Direct Bilirubin 0.6 H, AST 62 H, ALT 88 H, Alkaline Phosphatase 161 H, Total Protein 6.5, Albumin 2.6 L, Prealbumin 4.4 L, Triglycerides 80, CBC w Diff MAN DIFF ORDERED, RBC 3.55 L, MCV 87.0, MCH 30.0, MCHC 34.5, RDW 14.6 H, MPV 8.5, Gran % 86.4 H, Lymphocytes % 4.4 L, Monocytes % 8.4, Eosinophils % 0.6, Basophils % 0.2, Absolute Granulocytes 14.2 H, Segmented Neutrophils 84 H, Band Neutrophils 6 H, Absolute Lymphocytes 0.7 L, Lymphocytes 3 L, Monocytes 6, Absolute Monocytes 1.4 H, Eosinophils 1, Absolute Eosinophils 0.1, Absolute Basophils 0, Platelet Estimate VERIFIED BY SMEAR, Polychromasia 1+, Anisocytosis 1+ Vital Signs Date Time Temp Pulse Resp B/P B/P Pulse O2 O2 Flow FiO2 Mean Ox Delivery Rate 03/03 0638 98.9 71 20 107/71 97 03/02 2118 98.7 74 18 109/73 96 Room Air 03/02 1432 97.9 67 20 114/68 97 Room Air
[2018-03-03 14:00] VITALS: BP 133/97
--- NOTE | 2018-03-03 16:42 | PN- Gastroenterology ---
Assessment/Plan GI Assessment/Recommendations: ASSESSMENT: 1. Pancreatic Pseudocyst 2. Pancreatitis -- unalble to tolerate enteral nutrition, on TPN. Eager to advanced diet. Appreciate Dr. Roach's input and agree given patient's abdominal discomfort, continued leukocytosis, and nausea, it is unlikely that he would be able to take sufficient calories by mouth to siginificantly decrease rate of TPN or discotinue it altogether. 3. Elevated transaminases -- likely due to ceftriaxone as well as underlying pancreatitis. They appear to be trending downwards so would not change antibiotics at this point. 4. Infected Necrosis -- on Ceftriaxone 5. Leukocytosis -- if WBC remain elevated, consider repeat CT Scan. ? broaden antibiotic coverage or change altogether. RECOMMENDATIONS: 1. Would continue Ceftriaxone 2. Continue TPN and intralipids, would not start oral intake at this time. 3. Will discuss with Dr. Roach and ID regarding timing of repeat CT and possible change of antibiotics 4. For now would continue conservative treatment. Subjective Subjective: Patient still has moderate abdominal pain. Had an episode of vomiting yesterday but none today. Is eager to try something by mouth. Has had no further fevers, although today was 99.1. WBC have been fluctuating. On 02/27 was 10.3. On the 12.2, on the 16.4 (with bandemia) and on the 10.0. Today WBC are 15.3. Objective Vital Signs and I&Os Vital Signs Date Time Temp Pulse Resp B/P B/P Pulse O2 O2 Flow FiO2 Mean Ox Delivery Rate 03/03 1400 99.1 80 20 133/97 96 Room Air 03/03 0638 98.9 71 20 107/71 97 03/02 2118 98.7 74 18 109/73 96 Room Air Intake & Output 03/03 1600 03/03 0400 03/02 1600 03/02 0400 03/01 1600 03/01 0400 Intake Total 1145.4 1206.0 754.1 2222.0 615.0 Output Total 403 231 1674 1250 1700 400 Balance 520.4 -800 -1094.0 -495.9 522.0 215.0 Intake, IV 10 460 300 Intake, Lipid 116.8 117.0 102.2 234.0 42.0 Intake, Oral 20 80 0 60 Intake, 1008.6 1009 641.9 1468 273 TPN/PPN Number 1 Bowel Movements Output, 200 Emesis Output, Urine 933 359 2535 1050 1700 400 Patient 206 lb 196 lb 197 lb Weight Weight Bed scale Bed scale Measurement Method Physical Exam General Appearance: no apparent distress, alert, awake, comfortable Head: normal appearance Respiratory: normal breath sounds, no respiratory distress, lungs clear Cardiovascular: regular rate/rhythm, Normal S1 and S2 without rub, murmur or gallop Abdomen: normal bowel sounds, soft, There is upper abdominal tenderness without rebound or guarding. Neurologic/Psychiatric: awake, alert, oriented x 3 Skin: intact, normal color, warm/dry Current Medications: Current Medications Sig/Oz Start time Last Medication Dose Route Stop Time Status Admin Acetaminophen 650 MG Q4P PRN 02/18 1630 AC 02/22 PO 1505 Ceftriaxone Sodium 1,000 MG DAILY@1700 02/28 1700 AC 03/02 IV 1705 Chlorpromazine 25 MG Q6P PRN 02/24 1845 AC 02/28 PO 0221 Fat Emulsion 350 ML Q24H 03/03 1900 AC Intravenous IV 03/04 185 Fat Emulsion 350 ML ONCE ONE 03/02 1900 AC 03/02 Intravenous IV 03/03 185 191 Fat [place] [address]/01 190 DC 03/01 Intravenous IV 03/02 185 191 Gabapentin 300 MG Q8 02/18 1400 AC 03/03 PO 1414 Heparin Sodium 5,000 UNIT Q8 02/04 0600 AC 03/03 (Porcine) SC 1414 Hydromorphone HCl 2 MG Q3P PRN 02/17 1800 AC 03/03 IV 1511 Nicotine 7 MG DAILY PRN 02/27 1359 TOP Omeprazole 40 MG DAILY AC 02/07 0700 AC 03/03 PO 0440 Ondansetron HCl 4 MG Q6P PRN 02/04 0245 AC 03/01 IV 1629 Oxycodone HCl 10 MG Q4P PRN 02/23 1100 AC 03/03 PO 1110 Patient Medication 1 ED ONE ONE 03/03 1030 DC 03/03 Teaching ED 03/03 1031 1108 Total Parenteral 1 UNIT 0 03/03 190 AC Nutrition IV 03/04 185 Total Parenteral 1 UNIT ONE 03/02 190 AC 03/02 Nutrition IV 03/03 1859 1918 Total Parenteral 1 UNIT 190 09/08 1900 DC 03/01 Nutrition IV 03/02 Results Pertinent Lab Results: Laboratory Tests 03/03 03/02 0530 0551 Chemistry Sodium (137 - 145 mmol/L) 132 L 133 L Potassium (3.5 - 5.1 mmol/L) 4.9 4.7 Chloride (98 - 107 mmol/L) 97 L 98 Carbon Dioxide (22 - 30 mmol/L) 26 26 Anion Gap (5 - 16) 9 8 BUN (9 - 20 mg/dL) 16 14 Creatinine (0.7 - 1.2 mg/dL) 0.7 0.6 L Estimated GFR (>60 ml/min) > 60 > 60 BUN/Creatinine Ratio (7 - 25 %) 22.9 23.3 Calcium (8.4 - 10.2 mg/dL) 8.1 L 7.9 L Phosphorus (2.5 - 4.5 mg/dL) 4.4 4.4 Magnesium (1.6 - 2.3 mg/dL) 1.9 2.1 Total Bilirubin (0.2 - 1.3 mg/dL) 0.7 0.6 Direct Bilirubin (< 0.4 mg/dL) 0.5 H 0.5 H AST (17 - 59 U/L) 65 H 47 ALT (21 - 72 U/L) 83 H 85 H Alkaline Phosphatase (< 127 U/L) 183 H 151 H Total Protein (6.3 - 8.2 g/dL) 6.6 6.5 Albumin (3.5 - 5.0 g/dL) 2.6 L 2.5 L Prealbumin (17.6 - 36.0 mg/dL) 6.5 L Triglycerides (<150 mg/dL) 83 Hematology CBC w Diff MAN DIFF ORDERED NO MAN DIFF REQ WBC (4.8 - 10.8 /CUMM) 15.3 H 10.0 RBC (4.70 - 6.10 /CUMM) 3.53 L 4.55 L Hgb (14.0 - 18.0 G/DL) 10.4 L 13.4 L Hct (42 - 52 %) 30.5 L 39.7 L MCV (80.0 - 94.0 FL) 86.4 87.4 MCH (27.0 - 31.0 PG) 29.5 29.4 MCHC (33.0 - 37.0 G/DL) 34.1 33.6 RDW (11.5 - 14.5 %) 15.0 H 14.8 H Plt Count (130 - 400 /CUMM) 386 283 MPV (7.4 - 10.4 FL) 8.2 8.6 Gran % (42.2 - 75.2 %) 86.0 H 84.0 H Lymphocytes % (20.5 - 51.1 %) 6.4 L 6.9 L Monocytes % (1.7 - 9.3 %) 7.3 8.4 Eosinophils % (0 - 5 %) 0.1 0.4 Basophils % (0.0 - 2.0 %) 0.2 0.3 Absolute Granulocytes (1.4 - 6.5 /CUMM) 13.2 H 8.4 H Absolute Lymphocytes (1.2 - 3.4 /CUMM) 1.0 L 0.7 L Absolute Monocytes (0.10 - 0.60 /CUMM) 1.1 H 0.8 H Absolute Eosinophils (0.0 - 0.7 /CUMM) 0 0 Absolute Basophils (0.0 - 0.2 /CUMM) 0 0 Platelet Estimate (ADEQUATE) ADEQUATE Polychromasia 1+ Hypochromic-Microcytic 1+ 09/08 0605 Chemistry Sodium (137 - 145 mmol/L) 130 L Potassium (3.5 - 5.1 mmol/L) 5.0 Chloride (98 - 107 mmol/L) 95 L Carbon Dioxide (22 - 30 mmol/L) 24 Anion Gap (5 - 16) 11 BUN (9 - 20 mg/dL) 13 Creatinine (0.7 - 1.2 mg/dL) 0.7 Estimated GFR (>60 ml/min) > 60 BUN/Creatinine Ratio (7 - 25 %) 18.6 Magnesium (1.6 - 2.3 mg/dL) 2.0 Total Bilirubin (0.2 - 1.3 mg/dL) 0.7 Direct Bilirubin (< 0.4 mg/dL) 0.6 H AST (17 - 59 U/L) 62 H ALT (21 - 72 U/L) 88 H Alkaline Phosphatase (< 127 U/L) 161 H Total Protein (6.3 - 8.2 g/dL) 6.5 Albumin (3.5 - 5.0 g/dL) 2.6 L Prealbumin (17.6 - 36.0 mg/dL) 4.4 L Triglycerides (<150 mg/dL) 80 Hematology CBC w Diff MAN DIFF ORDERED WBC (4.8 - 10.8 /CUMM) 16.4 H RBC (4.70 - 6.10 /CUMM) 3.55 L Hgb (14.0 - 18.0 G/DL) 10.6 L Hct (42 - 52 %) 30.9 L MCV (80.0 - 94.0 FL) 87.0 MCH (27.0 - 31.0 PG) 30.0 MCHC (33.0 - 37.0 G/DL) 34.5 RDW (11.5 - 14.5 %) 14.6 H Plt Count (130 - 400 /CUMM) 365 MPV (7.4 - 10.4 FL) 8.5 Gran % (42.2 - 75.2 %) 86.4 H Lymphocytes % (20.5 - 51.1 %) 4.4 L Monocytes % (1.7 - 9.3 %) 8.4 Eosinophils % (0 - 5 %) 0.6 Basophils % (0.0 - 2.0 %) 0.2 Absolute Granulocytes (1.4 - 6.5 /CUMM) 14.2 H Segmented Neutrophils (42.2 - 75.2 %) 84 H Band Neutrophils (0.0 - 5.0 %) 6 H Absolute Lymphocytes (1.2 - 3.4 /CUMM) 0.7 L Lymphocytes (20.5 - 51.1 %) 3 L Monocytes (1.7 - 9.3 %) 6 Absolute Monocytes (0.10 - 0.60 /CUMM) 1.4 H Eosinophils (0 - 5.0 %) 1 Absolute Eosinophils (0.0 - 0.7 /CUMM) 0.1 Absolute Basophils (0.0 - 0.2 /CUMM) 0 Platelet Estimate (ADEQUATE) VERIFIED BY SMEAR Polychromasia 1+ Anisocytosis 1+
[2018-03-03 21:52] VITALS: BP 100/58
[2018-03-04 06:42] VITALS: BP 110/70
--- NOTE | 2018-03-04 08:00 | PN- Housestaff ---
Subjective Follow-up For: smoldering pancreatits Subjective: seen and examined at bedside. Nausea still present but no vomiting. Abdominal pain controlled afebrile o/n Review of Systems Constitutional: Reports: see HPI. Objective Last 24 Hrs of Vital Signs/I&O Vital Signs Date Time Temp Pulse Resp B/P B/P Pulse O2 O2 Flow FiO2 Mean Ox Delivery Rate 03/04 1503 112/60 03/04 1440 98.0 73 18 95/53 97 Room Air 03/04 0642 98.4 85 20 110/70 95 Room Air 03/03 2152 99.1 77 20 100/58 95 Room Air Intake & Output 03/04 1600 03/04 0800 03/04 0000 Intake Total 904.0 850.4 483.6 Output Total 125 850 900 Balance 779.0 0.4 -416.4 Intake, IV 60 Intake, Lipid 102.0 116.8 116.8 Intake, Oral 100 Intake, 642 733.6 366.8 TPN/PPN Number 0 1 Bowel Movements Output, 50 Emesis Output, Urine 125 800 900 Patient 87.317 kg Weight Physical Exam General Appearance: Alert, Oriented X3 Assessment/Plan Assessment: 52yo M w/ PMH of diverticulitis, kidney stones s/p lithotripsy, gallstones s/p cholecystectomy, s/p Pippa procedure w/ temporary colostomy followed by revision in 2015, s/p hernia repair, reversible ischemia on nuclear stress test status post cardiac cath recently in 2014 presented to [facility] w/ N/V/D/severe intermittent abd pain since 1pm of 02/03/2018, endorsed loose BM, w/ intermittent non-bloody vomiting. Patient is being treated currently for acute pancreatitis with infected necrosis and pseudocyst, now NPO on TPN for 1 week, and remains on ceftriaxone. CT Abdomen 02/26/18 1. There is increased peripancreatic fluid and soft tissue density compared to the prior study. The pancreatic parenchyma has lower attenuation compared to prior imaging, which may be consistent with evolving necrotic changes. 2. The discrete fluid collection along the ventral head of the pancreas is no longer visualized. There is extensive loculated fluid in the right abdomen extending inferiorly and posterior to the right psoas muscle, not significantly changed compared to the most recent prior study. 3. Flow is demonstrated in the splenic and portal veins. 4. Anasarca in the abdominal mascorro appears similar compared to prior imaging. A/P #Smoldering Pancreatitis WITH Infected pancreatic pseudocyts -Remains n.p.o. on TPN day 11, ongoing nausea -He is tolerating sips of water well, will advance to clears at a very slow pace. -He remains afebrile, white count persited on Ceftriaxone.. -We will continue to trend his wbc and watchout for fevers, tachycardia, hypotension as signs of worsening infection -Continue ceftriaxone -Repeat CT scan tomorrow to asses interval changes of pseudocysts. -We will follow-up with GI and surgery on when to advance him from NPO to clears. - Pt will eventually have surgical procedure for his pseudocyts (Dr Dimas).The plan is to allow for the infection pseudocysts to wall off while pt is taking abx, and in about 4-6 weeks, he will undergo #Failure to advance diet requiring Parenteral feeding (TPN) On TPN (on day 11) -we will also trend trigs and periodically prealbumin -Adjust TPN as per electrolytes #Transaminitis Secondary to ceftriaxone versus underlying pancreatitis -His Transmainitis is improving. -Alkaline phosphatase is elevated though improved continue to trend #Hyponatremia -We will continue with TPN with electrolytes tailored to address his hyponatremia proving. We will increase sodium to 90 meq/L. FC/n.p.o. on TPN/DVT prophylaxis with subcutaneous heparin/is ambulating in hallways Problem List: 1. Acute pancreatitis with infected necrosis Pain Ratin Pain Location: ABDOMINAL Pain Goal: Pain 4 or less Pain Plan: PER PATHWAY Tomorrow's Labs & Rationales: CBC BEP
[2018-03-04 08:11] LABS: ABSOLUTE BASOPHIL COUNT 0 /CUMM (0.0-0.2); ABSOLUTE EOSINOPHIL COUNT 0 /CUMM (0.0-0.7); ABSOLUTE GRANULOCYTE CT 13.5 /CUMM (1.4-6.5); ABSOLUTE MONOCYTE COUNT 1.1 /CUMM (0.10-0.60); BASOPHIL % 0.2 % (0.0-2.0); EOSINOPHIL % 0.1 % (0-5); GRANULOCYTE % 86.3 % (42.2-75.2); HEMATOCRIT 32.3 % (42-52); MEAN CORPUSCULAR HGB 29.5 PG (27.0-31.0); MEAN CORPUSCULAR HGB CONC 33.8 G/DL (33.0-37.0); MEAN CORPUSCULAR VOLUME 87.4 FL (80.0-94.0); MEAN PLATELET VOLUME 8.6 FL (7.4-10.4); PLATELET COUNT 435 /CUMM (130-400); RBC DISTRIBUTION WIDTH 15.1 % (11.5-14.5)
[2018-03-04 09:06] LABS: WHITE BLOOD CELL COUNT 15.7 /CUMM (4.8-10.8)
--- NOTE | 2018-03-04 09:56 | PN- Att Addend ---
Attending Addendum Attending Brief Note Patient feeling little better today. Patient willing to try a little bit more fluids make sure he does not get nauseous on the pain does not increase. His vital signs are stable no fever no changes on physical exam. Patient to have radiology testing in a.m. Continue enteric nutrition, continue to ambulate. Intake & Output 03/04 0400 03/03 1600 03/03 0400 03/02 0400 Intake Total 850.4 483.6 1145.4 1206.0 754.1 Output Total 850 900 645 533 1850 1250 Balance 0.4 -416.4 520.4 -800 -1094.0 -495.9 Intake, IV 10 Intake, Lipid 116.8 116.8 116.8 117.0 102.2 Intake, Oral 20 80 0 Intake, 733.6 366.8 1008.6 1009 641.9 TPN/PPN Number 1 Bowel Movements Output, 50 200 Emesis Output, Urine 800 900 864 650 3647 1050 Patient 193 lb 206 lb 196 lb Weight Weight Bed scale Measurement Method Current Medications Sig/Oz Start time Last Medication Dose Route Stop Time Status Admin Acetaminophen 650 MG Q4P PRN 02/18 1630 AC 02/22 PO 1505 Ceftriaxone Sodium 1,000 MG DAILY@1700 02/28 1700 AC 03/03 IV 1731 Chlorpromazine 25 MG Q6P PRN 02/24 1845 AC 02/28 PO 0221 Fat Emulsion 350 ML Q24H 03/03 1915 CAN Intravenous IV 03/04 191 Fat Emulsion 350 ML Q24H 03/03 190 DC Intravenous IV 03/04 185 Fat Emulsion 350 ML ONCE ONE 03/02 190 DC 03/02 Intravenous IV 03/03 185 1917 Gabapentin 300 MG Q8 02/18 1400 AC 03/04 PO 0545 Heparin Sodium 5,000 UNIT Q8 02/04 06 AC 03/04 (Porcine) SC 0547 Hydromorphone HCl 2 MG Q3P PRN 02/17 1800 AC 03/04 IV 0943 Nicotine 7 MG DAILY PRN 02/27 1359 AC TOP Omeprazole 40 MG DAILY AC 02/07 0700 AC 03/04 PO 0545 Ondansetron HCl 4 MG Q6P PRN 02/04 0245 AC 03/04 IV 0547 Oxycodone HCl 10 MG Q4P PRN 02/23 1100 03/03 PO 1110 Patient Medication 1 ED ONE ONE 03/03 1030 ID 03/03 Teaching ED 03/03 1031 1108 Total Parenteral 1 UNIT ONE 03/03 1915 CAN Nutrition IV Total Parenteral 1 UNIT 03/03 03/03 Nutrition IV 03/04 Total Parenteral 1 UNIT ONE 03/02 1900 ID 03/02 Nutrition IV 03/03 Laboratory Tests 03/04/18 0555: Anion Gap 11, Estimated GFR > 60, BUN/Creatinine Ratio 22.9, Calcium 8.1 L, Phosphorus 4.7 H, Total Bilirubin 0.8, Direct Bilirubin 0.5 H, AST 53, ALT 73 H, Alkaline Phosphatase 183 H, Total Protein 7.3, Albumin 2.8 L, CBC w Diff NO MAN DIFF REQ, RBC 3.70 L, MCV 87.4, MCH 29.5, MCHC 33.8, RDW 15.1 H, MPV 8.6, Gran % 86.3 H, Lymphocytes % 6.5 L, Monocytes % 6.9, Eosinophils % 0.1, Basophils % 0.2, Absolute Granulocytes 13.5 H, Absolute Lymphocytes 1.0 L, Absolute Monocytes 1.1 H, Absolute Eosinophils 0, Absolute Basophils 0 03/03/18 0530: Anion Gap 9, Estimated GFR > 60, BUN/Creatinine Ratio 22.9, Calcium 8.1 L, Phosphorus 4.4, Magnesium 1.9, Total Bilirubin 0.7, Direct Bilirubin 0.5 H, AST 65 H, ALT 83 H, Alkaline Phosphatase 183 H, Total Protein 6.6, Albumin 2.6 L , Prealbumin 6.5 L, Triglycerides 83, CBC w Diff MAN DIFF ORDERED, RBC 3.53 L, MCV 86.4, MCH 29.5, MCHC 34.1, RDW 15.0 H, MPV 8.2, Gran % 86.0 H, Lymphocytes % 6.4 L, Monocytes % 7.3, Eosinophils % 0.1, Basophils % 0.2, Absolute Granulocytes 13.2 H, Absolute Lymphocytes 1.0 L, Absolute Monocytes 1.1 H, Absolute Eosinophils 0, Absolute Basophils 0, Platelet Estimate ADEQUATE, Polychromasia 1+, Hypochromic-Microcytic 1+ 03/02/18 0551: Anion Gap 8, Estimated GFR > 60, BUN/Creatinine Ratio 23.3, Calcium 7.9 L, Phosphorus 4.4, Magnesium 2.1, Total Bilirubin 0.6, Direct Bilirubin 0.5 H, AST 47, ALT 85 H, Alkaline Phosphatase 151 H, Total Protein 6.5, Albumin 2.5 L, CBC w Diff NO MAN DIFF REQ, RBC 4.55 L, MCV 87.4, MCH 29.4, MCHC 33.6, RDW 14.8 H, MPV 8.6, Gran % 84.0 H, Lymphocytes % 6.9 L, Monocytes % 8.4, Eosinophils % 0.4, Basophils % 0.3, Absolute Granulocytes 8.4 H, Absolute Lymphocytes 0.7 L, Absolute Monocytes 0.8 H, Absolute Eosinophils 0, Absolute Basophils 0 Vital Signs Date Time Temp Pulse Resp B/P B/P Pulse O2 O2 Flow FiO2 Mean Ox Delivery Rate 03/04 0642 98.4 85 20 110/70 95 Room Air 03/03 2152 99.1 77 20 100/58 95 Room Air 03/03 1600 93 Room Air Room Air 03/03 1400 99.1 80 20 133/97 96 Room Air Continue to monitor the white count which is still elevated
--- NOTE | 2018-03-04 10:56 | PN- General Surgery ---
Surgical Brief Attending Note Brief Attending Note: Please arrange for repeat CT abdomen/pelvis with oral and IV contrast for tomorrow.
[2018-03-04 14:40] VITALS: BP 95/53
[2018-03-04 15:03] VITALS: BP 112/60
[2018-03-04 21:28] VITALS: BP 104/63
[2018-03-05 05:41] VITALS: BP 110/70
[2018-03-05 08:00] LABS: ABSOLUTE BASOPHIL COUNT 0 /CUMM (0.0-0.2); ABSOLUTE EOSINOPHIL COUNT 0 /CUMM (0.0-0.7); ABSOLUTE GRANULOCYTE CT 11.4 /CUMM (1.4-6.5); ABSOLUTE LYMPH COUNT 0.9 /CUMM (1.2-3.4); BASOPHIL % 0.3 % (0.0-2.0); EOSINOPHIL % 0 % (0-5); HEMATOCRIT 29.3 % (42-52); MEAN CORPUSCULAR HGB 29.5 PG (27.0-31.0); MEAN CORPUSCULAR HGB CONC 33.7 G/DL (33.0-37.0); MEAN CORPUSCULAR VOLUME 87.6 FL (80.0-94.0); MEAN PLATELET VOLUME 8.4 FL (7.4-10.4); PLATELET COUNT 343 /CUMM (130-400); RBC DISTRIBUTION WIDTH 15.1 % (11.5-14.5); RED BLOOD CELL CT 3.35 /CUMM (4.70-6.10); WHITE BLOOD CELL COUNT 13.3 /CUMM (4.8-10.8)
[2018-03-05 08:40] LABS: GRANULOCYTE % 85.8 % (42.2-75.2)
--- NOTE | 2018-03-05 08:52 | PN- Housestaff ---
Subjective Follow-up For: Infected pancreatic pseudocyst Subjective: Saw pt at bedside this AM. He states that he is now able to keep down the Ensure and some clear liquids. Unfortunately, he vomited the oral contrast for his CT. He is going to attempt to drink it again, but is not optimistic about keeping it down. Review of Systems Constitutional: Denies: chills, fever. EENTM: Reports: no symptoms. Cardiovascular: Reports: no symptoms. Respiratory: Reports: no symptoms. Gastrointestinal: Reports: abdominal pain, bloating, vomiting. Denies: diarrhea, melena, nausea, bloody stool. Genitourinary: Reports: no symptoms. Musculoskeletal: Reports: no symptoms. Skin: Reports: no symptoms. Objective Last 24 Hrs of Vital Signs/I&O Vital Signs Date Time Temp Pulse Resp B/P B/P Pulse O2 O2 Flow FiO2 Mean Ox Delivery Rate 03/05 0541 98.6 71 20 110/70 96 Room Air 03/04 2128 98.5 71 20 104/63 97 Room Air 03/04 1503 112/60 03/04 1440 98.0 73 18 95/53 97 Room Air Intake & Output 03/05 1600 03/05 0800 03/05 0000 Intake Total 971.0 200 Output Total 900 600 Balance 71.0 -400 Intake, Lipid 117.0 Intake, Oral 120 200 Intake, 734 TPN/PPN Output, Urine 900 600 Patient 88.11 kg Weight Physical Exam General Appearance: Alert, Oriented X3, Cooperative, No Acute Distress HEENT: Atraumatic, PERRLA, EOMI Cardiovascular: Regular Rate, Normal S1, Normal S2 Lungs: Normal Air Movement Abdomen: Soft, some tenderness diffusely Extremities: No Edema, some almost asterixis type movement when he held his hands out, but mostly just looks "shaky." Pt states that this is new for him over the past few weeks since the pancreatitis. Current Medications: Current Medications Sig/Oz Start time Last Medication Dose Route Stop Time Status Admin Acetaminophen 650 MG Q4P PRN 02/18 1630 AC 02/22 PO 1505 Ceftriaxone Sodium 1,000 MG DAILY@1700 02/28 1700 AC 03/04 IV 1704 Chlorpromazine 25 MG Q6P PRN 02/24 1845 AC 02/28 PO 0221 Fat Emulsion 350 ML Q24H 09/11 1900 AC 03/04 Intravenous IV 03/05 1859 194 Gabapentin 300 MG Q8 02/18 1400 AC 03/05 PO 0536 Heparin Sodium 5,000 UNIT Q8 02/04 0600 AC 03/05 (Porcine) SC 0537 Hydromorphone HCl 2 MG Q3P PRN 02/17 1800 AC 03/05 IV 1117 Nicotine 7 MG DAILY PRN 02/27 1359 AC TOP Omeprazole 40 MG DAILY AC 02/07 0700 AC 03/05 PO 0537 Ondansetron HCl 4 MG Q6P PRN 02/04 0245 AC 03/05 IV 1010 Oxycodone HCl 10 MG Q4P PRN 02/23 1100 AC 03/05 PO 0536 Sodium Chloride 250 ML BOLUS ONE 03/04 1515 CAN IV 03/04 1614 Total Parenteral 1 UNIT 1900 03/04 190 AC 03/04 Nutrition IV 03/05 Total Parenteral 1 UNIT 0 03/03 190 DC 03/03 Nutrition IV 03/04 Last 24 Hrs of Lab/Steven Results Last 24 Hrs of Labs/Mics: Laboratory Tests 03/05/18 0553: Anion Gap 9, Estimated GFR > 60, BUN/Creatinine Ratio 22.9, Calcium 7.8 L, Phosphorus 4.3, Total Bilirubin 0.6, Direct Bilirubin 0.4, AST 56, ALT 74 H, Alkaline Phosphatase 158 H, Total Protein 6.6, Albumin 2.6 L, CBC w Diff NO MAN DIFF REQ, RBC 3.35 L, MCV 87.6, MCH 29.5, MCHC 33.7, RDW 15.1 H, MPV 8.4, Gran % 85.8 H, Lymphocytes % 6.5 L, Monocytes % 7.4, Eosinophils % 0, Basophils % 0.3, Absolute Granulocytes 11.4 H, Absolute Lymphocytes 0.9 L, Absolute Monocytes 1.0 H, Absolute Eosinophils 0, Absolute Basophils 0 03/04/18 2000: Sodium Cancelled, Potassium Cancelled, Chloride Cancelled, Carbon Dioxide Cancelled, Anion Gap Cancelled, BUN Cancelled, Creatinine Cancelled, BUN/ Creatinine Ratio Cancelled Assessment/Plan Assessment: This is a 52yo M w/ PMH of diverticulitis, kidney stones s/p lithotripsy, gallstones s/p cholecystectomy, s/p Pippa procedure w/ temporary colostomy followed by revision in 2015, s/p hernia repair, reversible ischemia on nuclear stress test status post cardiac cath recently in 2014 presented to [facility] w/ N/V/D/ severe intermittent abd pain since 1pm of 02/03/2018, endorsed loose BM, w/ intermittent non-bloody vomiting. Patient found to have acute pancreatitis complicated by infected necrosis (cx showing enterobacter) and pseudocyst, now NPO on TPN. Infected pancreatic pseudocyts: He remains afebrile, white count persited on Ceftriaxone. Remains n.p.o. on TPN day 12, ongoing nausea but kept down an ensure this AM. He had first BM in hospital yesterday. * Continue ceftriaxone * Repeat CT scan today * Appreciate GI and surgery recs * Per Dr. Roach: Pt will eventually likely need to have surgical procedure for his pseudocyts.The plan is to allow for the infection pseudocysts to wall off while pt is taking abx, and in about 4-6 weeks to f/u. Failure to advance diet requiring Parenteral feeding (TPN): On TPN (on day 12) * we will also trend trigs and periodically prealbumin * Adjust TPN as per electrolytes Transaminitis: DDX DILI Secondary to ceftriaxone vs underlying pancreatitis. Seems to be trending mary. ALT 158, AST 74 today * Con't Monitor Hyponatremia: We will continue with TPN with electrolytes tailored to address his hyponatremia proving. We will increase sodium to 100 meq/L. FC/n.p.o. on TPN/DVT prophylaxis with subcutaneous heparin/is ambulating in hallways Problem List: 1. Abdominal pain Pain Ratin Pain Location: none Pain Goal: Remain pain free Pain Plan: current reg Tomorrow's Labs & Rationales: cbc bep
--- NOTE | 2018-03-05 10:11 | PN- Att Addend ---
Attending Addendum Attending Brief Note Patient trying to drink the contrast so we can go for his CAT scan Vital signs are stable no fever. White count today 13,300. No new changes on physical. Continue present treatment. And later check the results of the CAT scan. Intake & Output 03/05 1600 03/05 0400 03/04 1600 03/04 0400 03/03 1600 03/03 0400 Intake Total 971.0 200 1754.4 483.6 1145.4 Output Total 900 600 975 900 625 800 Balance 71.0 -400 779.4 -416.4 520.4 -800 Intake, IV 60 Intake, Lipid 117.0 218.8 116.8 116.8 Intake, Oral 120 200 100 20 Intake, 734 1375.6 366.8 1008.6 TPN/PPN Number 1 Bowel Movements Output, 50 Emesis Output, Urine 900 600 925 900 625 800 Patient 194 lb 193 lb 206 lb Weight Weight Bed scale Measurement Method Current Medications Sig/Oz Start time Last Medication Dose Route Stop Time Status Admin Acetaminophen 650 MG Q4P PRN 02/18 1630 AC 02/22 PO 1505 Ceftriaxone Sodium 1,000 MG DAILY@1700 02/28 1700 AC 03/04 IV 1704 Chlorpromazine 25 MG Q6P PRN 02/24 1845 AC 02/28 PO 0221 Fat Emulsion 350 ML Q24H 03/04 190 AC 03/04 Intravenous IV 03/06 1859 194 Gabapentin 300 MG Q8 02/18 1400 AC 03/05 PO 0536 Heparin Sodium 5,000 UNIT Q8 02/04 0600 AC 03/05 (Porcine) SC 0537 Hydromorphone HCl 2 MG Q3P PRN 02/17 1800 AC 03/05 IV 0731 Nicotine 7 MG DAILY PRN 02/27 1359 TOP Omeprazole 40 MG DAILY AC 02/07 0700 AC 03/05 PO 0537 Ondansetron HCl 4 MG Q6P PRN 02/04 0245 AC 03/04 IV 0547 Oxycodone HCl 10 MG Q4P PRN 02/23 1100 AC 03/05 PO 0536 Sodium Chloride 250 ML BOLUS ONE 03/04 1515 CAN IV 03/04 1614 Total Parenteral 1 UNIT 03/04 190 AC 03/04 Nutrition IV 03/05 185 194 Total Parenteral 1 UNIT 03/03 1900 DC 03/03 Nutrition IV 03/04 185 194 Laboratory Tests 03/05/18 0553: Anion Gap 9, Estimated GFR > 60, BUN/Creatinine Ratio 22.9, Calcium 7.8 L, Phosphorus 4.3, Total Bilirubin 0.6, Direct Bilirubin 0.4, AST 56, ALT 74 H, Alkaline Phosphatase 158 H, Total Protein 6.6, Albumin 2.6 L, CBC w Diff NO MAN DIFF REQ, RBC 3.35 L, MCV 87.6, MCH 29.5, MCHC 33.7, RDW 15.1 H, MPV 8.4, Gran % 85.8 H, Lymphocytes % 6.5 L, Monocytes % 7.4, Eosinophils % 0, Basophils % 0.3, Absolute Granulocytes 11.4 H, Absolute Lymphocytes 0.9 L, Absolute Monocytes 1.0 H, Absolute Eosinophils 0, Absolute Basophils 0 03/04/181999: Sodium Cancelled, Potassium Cancelled, Chloride Cancelled, Carbon Dioxide Cancelled, Anion Gap Cancelled, BUN Cancelled, Creatinine Cancelled, BUN/ Creatinine Ratio Cancelled 03/04/18 0555: Anion Gap 11, Estimated GFR > 60, BUN/Creatinine Ratio 22.9, Calcium 8.1 L, Phosphorus 4.7 H, Total Bilirubin 0.8, Direct Bilirubin 0.5 H, AST 53, ALT 73 H, Alkaline Phosphatase 183 H, Total Protein 7.3, Albumin 2.8 L, CBC w Diff NO MAN DIFF REQ, RBC 3.70 L, MCV 87.4, MCH 29.5, MCHC 33.8, RDW 15.1 H, MPV 8.6, Gran % 86.3 H, Lymphocytes % 6.5 L, Monocytes % 6.9, Eosinophils % 0.1, Basophils % 0.2, Absolute Granulocytes 13.5 H, Absolute Lymphocytes 1.0 L, Absolute Monocytes 1.1 H, Absolute Eosinophils 0, Absolute Basophils 0 03/03/18 0530: Anion Gap 9, Estimated GFR > 60, BUN/Creatinine Ratio 22.9, Calcium 8.1 L, Phosphorus 4.4, Magnesium 1.9, Total Bilirubin 0.7, Direct Bilirubin 0.5 H, AST 65 H, ALT 83 H, Alkaline Phosphatase 183 H, Total Protein 6.6, Albumin 2.6 L , Prealbumin 6.5 L, Triglycerides 83, CBC w Diff MAN DIFF ORDERED, RBC 3.53 L, MCV 86.4, MCH 29.5, MCHC 34.1, RDW 15.0 H, MPV 8.2, Gran % 86.0 H, Lymphocytes % 6.4 L, Monocytes % 7.3, Eosinophils % 0.1, Basophils % 0.2, Absolute Granulocytes 13.2 H, Absolute Lymphocytes 1.0 L, Absolute Monocytes 1.1 H, Absolute Eosinophils 0, Absolute Basophils 0, Platelet Estimate ADEQUATE, Polychromasia 1+, Hypochromic-Microcytic 1+ Vital Signs Date Time Temp Pulse Resp B/P B/P Pulse O2 O2 Flow FiO2 Mean Ox Delivery Rate 03/05 0541 98.6 71 20 110/70 96 Room Air 03/04 2128 98.5 71 20 104/63 97 Room Air 03/04 1503 112/60 03/04 1440 98.0 73 18 95/53 97 Room Air
--- NOTE | 2018-03-05 13:58 | CT SCAN REPORT ---
EXAMINATION: CT ABDOMEN AND PELVIS WITH CONTRAST CLINICAL INFORMATION: Abdominal pain and vomiting. Increased WBC. Presumptive diagnosis: Infected pseudocyst. COMPARISON: Prior CT scans of the abdomen and pelvis, the most recent of which is dated 02/26/2018. TECHNIQUE: Multidetector volumetric imaging was performed of the abdomen and pelvis following IV administration of 95 mL of Omnipaque 300 intravenous contrast. The patient received 350 mL of oral Redicat contrast. Sagittal and coronal reformatted images were obtained on the technologist's workstation. DLP: 716.64 mGy-cm FINDINGS: LUNG BASES: There is a slight improvement in right lower lobe atelectasis or consolidation and small right pleural effusion. LIVER, GALLBLADDER, AND BILIARY TREE: There is persistent intrahepatic and extrahepatic biliary duct dilatation. The gallbladder is either collapsed or surgically absent. PANCREAS: There is worsening diffuse swelling, heterogeneity, and edema involving the pancreas, most severe in the head and body. There are some areas of pancreas that appear to be enhancing. There are other patchy areas of suspected nonenhancement which could represent necrosis. There is a persistent elongated fluid collection extending along the inferior margin of the pancreatic body and tail, not significantly changed. A large lobulated fluid collection thinning inferior to the liver measures slightly smaller in some areas but is otherwise not significantly changed. These fluid collections may represent pseudocysts or evolving pseudocysts. SPLEEN: Mild splenomegaly is again noted. ADRENAL GLANDS: Unremarkable. KIDNEYS AND URETERS: A small low-attenuation lesion in the right kidney is unchanged. The kidneys are otherwise unremarkable. BLADDER: Unremarkable. GASTROINTESTINAL TRACT: The small and large bowel are unremarkable. The appendix is unremarkable. ABDOMINAL WALL: Anasarca is again noted. LYMPH NODES: No definite adenopathy. VASCULAR: The portal vein and portal confluence are patent and enhance. There is persistent significant narrowing of the splenic vein in the region of the body of the pancreas which may be related to mass effect. The splenic vein otherwise enhances and is patent. Multiple varices are again identified in the upper abdomen. PELVIC VISCERA: Unremarkable. OSSEOUS STRUCTURES: Degenerative changes in the spine and both hips are again noted. IMPRESSION: 1. Worsening pancreatic and peripancreatic inflammation. Persistent patchy areas of possible necrosis in the pancreas. No significant change in fluid collections along the inferior aspect of the pancreas and extending inferior to the right lobe of the liver. 2. No significant change in intrahepatic and extrahepatic biliary duct dilatation. 3. Slight improvement in right lower lobe atelectasis or consolidation and small right pleural effusion.
[2018-03-05 14:07] VITALS: BP 114/72
--- NOTE | 2018-03-05 16:18 | PN- Gastroenterology ---
Assessment/Plan GI Assessment/Recommendations: ASSESSMENT: 1. Pancreatic Pseudocyst 2. Pancreatitis -- unalble to tolerate enteral nutrition, on TPN. Patient with worsening pancreatitis despite conservative management. There is no evidence of mature pseudocyst or WON for drainage. Will discuss with Dr. Antony Vicente at [facility]. 3. Elevated transaminases -- likely due to ceftriaxone as well as underlying pancreatitis. They appear to be trending downwards so would not change antibiotics at this point. 4. Infected Necrosis -- on Ceftriaxone with stable WBC. Patient remains afebrile. 5. Leukocytosis -- if WBC remain elevated, consider repeat CT Scan. No significant change in WBC. RECOMMENDATIONS: 1. Would continue Ceftriaxone 2. Continue TPN and intralipids, would not start oral intake at this time. 3. Will discuss with Dr. Vicente and Dr. Roach regarding further treatment. At this time there do not appear any mature walled off collections for drainage. 4. For now would continue conservative treatment. Could consider trial nasojejunal feeding. Subjective Subjective: Mr. Bynum continues to have abdominal discomfort. A CT Scan [facility] abdomen and pelvis was obtained today, theresults of which areas follows: LIVER, GALLBLADDER, AND BILIARY TREE: There is persistent intrahepatic and extrahepatic biliary duct dilatation. The gallbladder is either collapsed or surgically absent. PANCREAS: There is worsening diffuse swelling, heterogeneity, and edema involving the pancreas, most severe in the head and body. There are some areas of pancreas that appear to be enhancing. There are other patchy areas of suspected nonenhancement which could represent necrosis. There is a persistent elongated fluid collection extending along the inferior margin of the pancreatic body and tail, not significantly changed. A large lobulated fluid collection thinning inferior to the liver measures slightly smaller in some areas but is otherwise not significantly changed. These fluid collections may represent pseudocysts or evolving pseudocysts. SPLEEN: Mild splenomegaly is again noted. ADRENAL GLANDS: Unremarkable. KIDNEYS AND URETERS: A small low-attenuation lesion in the right kidney is unchanged. The kidneys are otherwise unremarkable. BLADDER: Unremarkable. GASTROINTESTINAL TRACT: The small and large bowel are unremarkable. The appendix is unremarkable. ABDOMINAL WALL: Anasarca is again noted. LYMPH NODES: No definite adenopathy. VASCULAR: The portal vein and portal confluence are patent and enhance. There is persistent significant narrowing of the splenic vein in the region of the body of the pancreas which may be related to mass effect. The splenic vein otherwise enhances and is patent. Multiple varices are again identified in the upper abdomen. PELVIC VISCERA: Unremarkable. OSSEOUS STRUCTURES: Degenerative changes in the spine and both hips are again noted. IMPRESSION: 1. Worsening pancreatic and peripancreatic inflammation. Persistent patchy areas of possible necrosis in the pancreas. No significant change in fluid collections along the inferior aspect of the pancreas and extending inferior to the right lobe of the liver. 2. No significant change in intrahepatic and extrahepatic biliary duct dilatation. 3. Slight improvement in right lower lobe atelectasis or consolidation and small right pleural effusion. Objective Vital Signs and I&Os Vital Signs Date Time Temp Pulse Resp B/P B/P Pulse O2 O2 Flow FiO2 Mean Ox Delivery Rate 03/05 1407 98.3 71 18 114/72 98 Room Air 03/05 0541 98.6 71 20 110/70 96 Room Air 03/04 2128 98.5 71 20 104/63 97 Room Air Intake & Output 03/05 0400 03/04 04003/03 0400 Intake Total 2352.0 200 1754.4 483.6 1145.4 Output Total 2175 600 975 900 625 800 Balance 177.0 -400 779.4 -416.4 520.4 -800 Intake, IV 80 60 Intake, Lipid 232.0 218.8 116.8 116.8 Intake, Oral 570 200 100 20 Intake, 1470 1375.6 366.8 1008.6 TPN/PPN Number 1 1 Bowel Movements Output, 450 50 Emesis Output, Urine 1725 600 925 900 625 800 Patient 194 lb 193 lb 206 lb Weight Weight Bed scale Measurement Method Physical Exam General Appearance: no apparent distress, alert, awake Respiratory: normal breath sounds, lungs clear Cardiovascular: regular rate/rhythm Abdomen: normal bowel sounds, soft, mild tenderness Neurologic/Psychiatric: awake, alert, oriented x 3 Current Medications: Current Medications Sig/Oz Start time Last Medication Dose Route Stop Time Status Admin Acetaminophen 650 MG Q4P PRN 02/18 1630 AC 02/22 PO 1505 Ceftriaxone Sodium 1,000 MG DAILY@1700 02/28 1700 AC 03/04 IV 1704 Chlorpromazine 25 MG Q6P PRN 02/24 1845 AC 02/28 PO 0221 Fat Emulsion 350 ML Q24H 03/05 1900 AC Intravenous IV 03/06 1859 Fat Emulsion 350 ML Q24H 03/04 190 AC 03/04 Intravenous IV 03/05 1859 194 Gabapentin 300 MG Q8 02/18 1400 AC 03/05 PO 1359 Heparin Sodium 5,000 UNIT Q8 02/04 0600 AC 03/05 (Porcine) SC 1359 Hydromorphone HCl 2 MG Q3P PRN 02/17 1800 AC 03/05 IV 1432 Nicotine 7 MG DAILY PRN 02/27 1359 AC TOP Omeprazole 40 MG DAILY AC 02/07 0700 AC 03/05 PO 0537 Ondansetron HCl 4 MG Q6P PRN 02/04 0245 AC 03/05 IV 1010 Oxycodone HCl 10 MG Q4P PRN 02/23 1100 AC 03/05 PO 0536 Total Parenteral 1 UNIT ONE 03/05 1900 AC Nutrition IV 03/06 1859 Total Parenteral 1 UNIT ONE 03/05 1200 CAN Nutrition IV Total Parenteral 1 UNIT 03/04 190 AC 03/04 Nutrition IV 03/05 Total Parenteral 1 UNIT 03/03 IL 03/03 Nutrition IV 03/04 Results Pertinent Lab Results: Laboratory Tests 03/05 03/04 0553 2000 Chemistry Sodium (137 - 145 mmol/L) 131 L Cancelled Potassium (3.5 - 5.1 mmol/L) 4.7 Cancelled Chloride (98 - 107 mmol/L) 97 L Cancelled Carbon Dioxide (22 - 30 mmol/L) 26 Cancelled Anion Gap (5 - 16) 9 Cancelled BUN (9 - 20 mg/dL) 16 Cancelled Creatinine (0.7 - 1.2 mg/dL) 0.7 Cancelled Estimated GFR (>60 ml/min) > 60 BUN/Creatinine Ratio (7 - 25 %) 22.9 Cancelled Calcium (8.4 - 10.2 mg/dL) 7.8 L Phosphorus (2.5 - 4.5 mg/dL) 4.3 Total Bilirubin (0.2 - 1.3 mg/dL) 0.6 Direct Bilirubin (< 0.4 mg/dL) 0.4 AST (17 - 59 U/L) 56 ALT (21 - 72 U/L) 74 H Alkaline Phosphatase (< 127 U/L) 158 H Total Protein (6.3 - 8.2 g/dL) 6.6 Albumin (3.5 - 5.0 g/dL) 2.6 L Amylase (30 - 110 U/L) 99 Lipase (23 - 300 U/L) 522 H Hematology CBC w Diff NO MAN DIFF REQ WBC (4.8 - 10.8 /CUMM) 13.3 H RBC (4.70 - 6.10 /CUMM) 3.35 L Hgb (14.0 - 18.0 G/DL) 9.9 L Hct (42 - 52 %) 29.3 L MCV (80.0 - 94.0 FL) 87.6 MCH (27.0 - 31.0 PG) 29.5 MCHC (33.0 - 37.0 G/DL) 33.7 RDW (11.5 - 14.5 %) 15.1 H Plt Count (130 - 400 /CUMM) 343 MPV (7.4 - 10.4 FL) 8.4 Gran % (42.2 - 75.2 %) 85.8 H Lymphocytes % (20.5 - 51.1 %) 6.5 L Monocytes % (1.7 - 9.3 %) 7.4 Eosinophils % (0 - 5 %) 0 Basophils % (0.0 - 2.0 %) 0.3 Absolute Granulocytes (1.4 - 6.5 /CUMM) 11.4 H Absolute Lymphocytes (1.2 - 3.4 /CUMM) 0.9 L Absolute Monocytes (0.10 - 0.60 /CUMM) 1.0 H Absolute Eosinophils (0.0 - 0.7 /CUMM) 0 Absolute Basophils (0.0 - 0.2 /CUMM) 0 03/04 03/03 0555 0530 Chemistry Sodium (137 - 145 mmol/L) 131 L 132 L Potassium (3.5 - 5.1 mmol/L) 4.8 4.9 Chloride (98 - 107 mmol/L) 95 L 97 L Carbon Dioxide (22 - 30 mmol/L) 25 26 Anion Gap (5 - 16) 11 9 BUN (9 - 20 mg/dL) 16 16 Creatinine (0.7 - 1.2 mg/dL) 0.7 0.7 Estimated GFR (>60 ml/min) > 60 > 60 BUN/Creatinine Ratio (7 - 25 %) 22.9 22.9 Calcium (8.4 - 10.2 mg/dL) 8.1 L 8.1 L Phosphorus (2.5 - 4.5 mg/dL) 4.7 H 4.4 Magnesium (1.6 - 2.3 mg/dL) 1.9 Total Bilirubin (0.2 - 1.3 mg/dL) 0.8 0.7 Direct Bilirubin (< 0.4 mg/dL) 0.5 H 0.5 H AST (17 - 59 U/L) 53 65 H ALT (21 - 72 U/L) 73 H 83 H Alkaline Phosphatase (< 127 U/L) 183 H 183 H Total Protein (6.3 - 8.2 g/dL) 7.3 6.6 Albumin (3.5 - 5.0 g/dL) 2.8 L 2.6 L Prealbumin (17.6 - 36.0 mg/dL) 6.5 L Triglycerides (<150 mg/dL) 83 Hematology CBC w Diff NO MAN DIFF REQ MAN DIFF ORDERED WBC (4.8 - 10.8 /CUMM) 15.7 H 15.3 H RBC (4.70 - 6.10 /CUMM) 3.70 L 3.53 L Hgb (14.0 - 18.0 G/DL) 10.9 L 10.4 L Hct (42 - 52 %) 32.3 L 30.5 L MCV (80.0 - 94.0 FL) 87.4 86.4 MCH (27.0 - 31.0 PG) 29.5 29.5 MCHC (33.0 - 37.0 G/DL) 33.8 34.1 RDW (11.5 - 14.5 %) 15.1 H 15.0 H Plt Count (130 - 400 /CUMM) 435 H 386 MPV (7.4 - 10.4 FL) 8.6 8.2 Gran % (42.2 - 75.2 %) 86.3 H 86.0 H Lymphocytes % (20.5 - 51.1 %) 6.5 L 6.4 L Monocytes % (1.7 - 9.3 %) 6.9 7.3 Eosinophils % (0 - 5 %) 0.1 0.1 Basophils % (0.0 - 2.0 %) 0.2 0.2 Absolute Granulocytes (1.4 - 6.5 /CUMM) 13.5 H 13.2 H Absolute Lymphocytes (1.2 - 3.4 /CUMM) 1.0 L 1.0 L Absolute Monocytes (0.10 - 0.60 /CUMM) 1.1 H 1.1 H Absolute Eosinophils (0.0 - 0.7 /CUMM) 0 0 Absolute Basophils (0.0 - 0.2 /CUMM) 0 0 Platelet Estimate (ADEQUATE) ADEQUATE Polychromasia 1+ Hypochromic-Microcytic 1+
[2018-03-05 22:39] VITALS: BP 111/58
[2018-03-06 05:18] LABS: ABSOLUTE BASOPHIL COUNT 0 /CUMM (0.0-0.2); ABSOLUTE EOSINOPHIL COUNT 0 /CUMM (0.0-0.7); ABSOLUTE GRANULOCYTE CT 9.6 /CUMM (1.4-6.5); ABSOLUTE LYMPH COUNT 0.9 /CUMM (1.2-3.4); ABSOLUTE MONOCYTE COUNT 0.4 /CUMM (0.10-0.60); BASOPHIL % 0 % (0.0-2.0); EOSINOPHIL % 0 % (0-5); GRANULOCYTE % 87.8 % (42.2-75.2); MEAN CORPUSCULAR HGB 32.2 PG (27.0-31.0); MEAN CORPUSCULAR HGB CONC 35.1 G/DL (33.0-37.0); MEAN CORPUSCULAR VOLUME 91.9 FL (80.0-94.0); MEAN PLATELET VOLUME 8.7 FL (7.4-10.4); PLATELET COUNT 295 /CUMM (130-400); RBC DISTRIBUTION WIDTH 15.4 % (11.5-14.5); WHITE BLOOD CELL COUNT 10.9 /CUMM (4.8-10.8)
[2018-03-06 05:22] LABS: HEMATOCRIT 23.9 % (42-52)
[2018-03-06 06:59] VITALS: BP 111/60
[2018-03-06 08:53] LABS: ABSOLUTE BASOPHIL COUNT 0 /CUMM (0.0-0.2); ABSOLUTE EOSINOPHIL COUNT 0 /CUMM (0.0-0.7); ABSOLUTE GRANULOCYTE CT 9.9 /CUMM (1.4-6.5); ABSOLUTE LYMPH COUNT 0.7 /CUMM (1.2-3.4); ABSOLUTE MONOCYTE COUNT 0.8 /CUMM (0.10-0.60); BASOPHIL % 0.4 % (0.0-2.0); EOSINOPHIL % 0 % (0-5); GRANULOCYTE % 86.3 % (42.2-75.2); HEMATOCRIT 28.3 % (42-52); MEAN CORPUSCULAR HGB 29.6 PG (27.0-31.0); MEAN CORPUSCULAR HGB CONC 33.9 G/DL (33.0-37.0); MEAN CORPUSCULAR VOLUME 87.4 FL (80.0-94.0); MEAN PLATELET VOLUME 8.6 FL (7.4-10.4); PLATELET COUNT 290 /CUMM (130-400); RBC DISTRIBUTION WIDTH 15.2 % (11.5-14.5); RED BLOOD CELL CT 3.23 /CUMM (4.70-6.10); WHITE BLOOD CELL COUNT 11.5 /CUMM (4.8-10.8)
--- NOTE | 2018-03-06 09:05 | PN- Housestaff ---
Subjective Follow-up For: pancreatitis Subjective: saw pt at bedside today. He seemed fearful and tearful that he wasn't getting better. Dr. Bar and I had a long conversation with him regarding his hosital course and current status and he seemed to feel better afterwards. No acute overnight events. Review of Systems Constitutional: Reports: chills. Denies: fever, weakness. EENTM: Reports: no symptoms. Respiratory: Denies: short of breath. Gastrointestinal: Reports: abdominal pain, nausea. Denies: vomiting. Genitourinary: Reports: no symptoms. Musculoskeletal: Reports: no symptoms. Objective Last 24 Hrs of Vital Signs/I&O Vital Signs Date Time Temp Pulse Resp B/P B/P Pulse O2 O2 Flow FiO2 Mean Ox Delivery Rate 03/06 0659 98.5 75 20 111/60 99 Room Air 03/05 2239 98.3 78 20 111/58 97 Room Air 03/05 1407 98.3 71 18 114/72 98 Room Air Intake & Output 03/06 1600 03/06 0800 03/06 0000 Intake Total 970.4 428.9 Output Total 750 500 Balance -750 470.4 428.9 Intake, IV 60 60 Intake, Lipid 116.8 43.8 Intake, Oral 60 50 Intake, 733.6 275.1 TPN/PPN Output, Urine 750 500 Patient 88.904 kg Weight Weight Bed scale Measurement Method Physical Exam General Appearance: Alert, Oriented X3, Cooperative, Mild Distress HEENT: Atraumatic, PERRLA, EOMI Cardiovascular: Regular Rate, Normal S1, Normal S2 Lungs: Normal Air Movement Abdomen: tenderness in epigastrium Current Medications: Current Medications Sig/Oz Start time Last Medication Dose Route Stop Time Status Admin Acetaminophen 650 MG Q4P PRN 02/18 1630 AC 02/22 PO 1505 Ceftriaxone Sodium 1,000 MG DAILY@1700 02/28 1700 AC 03/05 IV 1705 Chlorpromazine 25 MG Q6P PRN 02/24 1845 AC 02/28 PO 0221 Fat Emulsion 350 ML Q24H 03/06 190 AC Intravenous IV 03/07 185 Fat Emulsion 350 ML Q24H 03/05 1900 AC 03/05 Intravenous IV 03/06 Fat Emulsion 350 ML Q24H 03/04 1900 DC 03/04 Intravenous IV 03/05 Gabapentin 300 MG Q8 02/18 1400 AC 03/06 PO 0503 Heparin Sodium 5,000 UNIT Q8 02/04 0600 AC 03/06 (Porcine) SC 0503 Hydromorphone HCl 2 MG Q3P PRN 02/17 1800 AC 03/06 IV 1130 Nicotine 7 MG DAILY PRN 02/27 1359 AC 03/06 TOP 0825 Omeprazole 40 MG DAILY AC 02/07 0700 AC 03/06 PO 0502 Ondansetron HCl 4 MG Q6P PRN 02/04 0245 AC 03/05 IV 1010 Oxycodone HCl 10 MG Q4P PRN 02/23 1100 AC 03/06 PO 0934 Total Parenteral 1 UNIT 1900 03/06 190 AC Nutrition IV 03/07 185 Total Parenteral 1 UNIT ONE 03/06 1015 DC Nutrition IV 03/07 1014 Total Parenteral 1 UNIT ONE 03/05 1900 AC 03/05 Nutrition IV 03/06 Total Parenteral 1 UNIT 1900 03/04 190 DC 03/04 Nutrition IV 03/05 Last 24 Hrs of Lab/Steven Results Last 24 Hrs of Labs/Mics: Laboratory Tests 03/06/18 0620: Anion Gap 8, Estimated GFR > 60, BUN/Creatinine Ratio 25.0, Triglycerides 60, Cholesterol 111, LDL Cholesterol, Calc 88, HDL Cholesterol 11 L, Cholesterol/ HDL Ratio 10 H, CBC w Diff MAN DIFF ORDERED, RBC 3.23 L, MCV 87.4, MCH 29.6, MCHC 33.9, RDW 15.2 H, MPV 8.6, Gran % 86.3 H, Lymphocytes % 6.5 L, Monocytes % 6.8, Eosinophils % 0, Basophils % 0.4, Absolute Granulocytes 9.9 H, Absolute Lymphocytes 0.7 L, Absolute Monocytes 0.8 H, Absolute Eosinophils 0, Absolute Basophils 0, Platelet Estimate VERIFIED BY SMEAR, Polychromasia 1+, Anisocytosis 1+ 03/06/18 0500: CBC w Diff MAN DIFF ORDERED, RBC 2.60 L, MCV 91.9, MCH 32.2 H, MCHC 35.1, RDW 15.4 H, MPV 8.7, Gran % 87.8 H, Lymphocytes % 8.2 L, Monocytes % 4.0, Eosinophils % 0, Basophils % 0, Absolute Granulocytes 9.6 H, Segmented Neutrophils 77 H, Band Neutrophils 18 H, Absolute Lymphocytes 0.9 L, Lymphocytes 4 L, Absolute Monocytes 0.4, Absolute Eosinophils 0, Basophils 1, Absolute Basophils 0, Nucleated RBCs 1 H, Platelet Estimate ADEQUATE, Polychromasia 1+, Poikilocytosis 1+, Ovalocytes 1+, Fld Total RBCs Counted 100 Assessment/Plan Assessment: This is a 52yo M w/ PMH of diverticulitis, kidney stones s/p lithotripsy, gallstones s/p cholecystectomy, s/p Pippa procedure w/ temporary colostomy followed by revision in 2015, s/p hernia repair, reversible ischemia on nuclear stress test status post cardiac cath recently in 2014 presented to [facility] w/ N/V/D/ severe intermittent abd pain since 1pm of 02/03/2018, endorsed loose BM, w/ intermittent non-bloody vomiting. Patient found to have acute pancreatitis complicated by infected necrosis (cx showing enterobacter) and pseudocyst, now NPO on TPN. Infected pancreatic pseudocyts: He remains afebrile, white count persited on Ceftriaxone. Remains n.p.o. on TPN day 13. His CT yesterday showed some worsening inflammation without focal collection. Per GI note, it seems like they are going to reach out to Dr. Antony Vicente at [facility] for second opinion * Continue ceftriaxone * Appreciate GI and surgery recs Failure to advance diet requiring Parenteral feeding (TPN): On TPN (on day 13). Lipid panel looked wnl today * we will also trend trigs and periodically prealbumin * Adjust TPN as per electrolytes * NPO Transaminitis: DDX DILI Secondary to ceftriaxone vs underlying pancreatitis. Seems to be trending down. * Con't Monitor Hyponatremia: We will continue with TPN with electrolytes tailored to address his hyponatremia proving. We will increase sodium to 100 meq/L. FC/n.p.o. on TPN/DVT prophylaxis with subcutaneous heparin/is ambulating in hallways Problem List: 1. Acute pancreatitis with infected necrosis Pain Ratin Pain Location: none Pain Goal: Remain pain free Pain Plan: current reg Tomorrow's Labs & Rationales: cbc bep
--- NOTE | 2018-03-06 12:15 | PN- General Surgery ---
Surgical Brief Attending Note Brief Attending Note: CT images reviewed. There is stable fluid collection in RUQ. This is the collection that wasa sampled by IR and found to colonized with Enterobacter. However there are persistent and worsening pancreatic inflammatory changes that seems to be discrete from the RUQ collection. There is peripancreatic fluid but no large pseudocyst. No further recommendations. Agree with getting second opinion from pancreatic specialist.
--- NOTE | 2018-03-06 12:30 | PN- Att Addend ---
Attending Addendum Attending Brief Note No major changes. Vital signs are stable no fever. No changes on physical examination. White count 11,500 today. Patient had his CAT scan yesterday results were noted still a lot of inflammation in the pancreas. GI and surgery aware of the findings. GI will check with pancreatic specialist in [place] see if we need to do something different or continue with the patient being n.p.o. and hyperalimentation.. Intake & Output 03/06 040 Intake Total 970.4 428.9 2352.0 200 1754.4 483.6 Output Total 1250 2175 600 975 900 Balance -279.6 428.9 177.0 -400 779.4 -416.4 Intake, IV 60 60 80 60 Intake, Lipid 116.8 43.8 232.0 218.8 116.8 Intake, Oral 60 50 570 200 100 Intake, 733.6 275.1 1470 1375.6 366.8 TPN/PPN Number 1 1 Bowel Movements Output, 450 50 Emesis Output, Urine 1250 1725 600 925 900 Patient 196 lb 194 lb 193 lb Weight Weight Bed scale Measurement Method Laboratory Tests 03/06/18 0620: Anion Gap 8, Estimated GFR > 60, BUN/Creatinine Ratio 25.0, Triglycerides 60, Cholesterol 111, LDL Cholesterol, Calc 88, HDL Cholesterol 11 L, Cholesterol/ HDL Ratio 10 H, CBC w Diff MAN DIFF ORDERED, RBC 3.23 L, MCV 87.4, MCH 29.6, MCHC 33.9, RDW 15.2 H, MPV 8.6, Gran % 86.3 H, Lymphocytes % 6.5 L, Monocytes % 6.8, Eosinophils % 0, Basophils % 0.4, Absolute Granulocytes 9.9 H, Absolute Lymphocytes 0.7 L, Absolute Monocytes 0.8 H, Absolute Eosinophils 0, Absolute Basophils 0, Platelet Estimate VERIFIED BY SMEAR, Polychromasia 1+, Anisocytosis 1+ 03/06/18 0500: CBC w Diff MAN DIFF ORDERED, RBC 2.60 L, MCV 91.9, MCH 32.2 H, MCHC 35.1, RDW 15.4 H, MPV 8.7, Gran % 87.8 H, Lymphocytes % 8.2 L, Monocytes % 4.0, Eosinophils % 0, Basophils % 0, Absolute Granulocytes 9.6 H, Segmented Neutrophils 77 H, Band Neutrophils 18 H, Absolute Lymphocytes 0.9 L, Lymphocytes 4 L, Absolute Monocytes 0.4, Absolute Eosinophils 0, Basophils 1, Absolute Basophils 0, Nucleated RBCs 1 H, Platelet Estimate ADEQUATE, Polychromasia 1+, Poikilocytosis 1+, Ovalocytes 1+, Fld Total RBCs Counted 100 03/05/18 0553: Anion Gap 9, Estimated GFR > 60, BUN/Creatinine Ratio 22.9, Calcium 7.8 L, Phosphorus 4.3, Total Bilirubin 0.6, Direct Bilirubin 0.4, AST 56, ALT 74 H, Alkaline Phosphatase 158 H, Total Protein 6.6, Albumin 2.6 L, Amylase 99, Lipase 522 H, CBC w Diff NO MAN DIFF REQ, RBC 3.35 L, MCV 87.6, MCH 29.5, MCHC 33.7, RDW 15.1 H, MPV 8.4, Gran % 85.8 H, Lymphocytes % 6.5 L, Monocytes % 7.4, Eosinophils % 0, Basophils % 0.3, Absolute Granulocytes 11.4 H, Absolute Lymphocytes 0.9 L, Absolute Monocytes 1.0 H, Absolute Eosinophils 0, Absolute Basophils 0 03/04/18 2000: Sodium Cancelled, Potassium Cancelled, Chloride Cancelled, Carbon Dioxide Cancelled, Anion Gap Cancelled, BUN Cancelled, Creatinine Cancelled, BUN/ Creatinine Ratio Cancelled 03/04/18 0555: Anion Gap 11, Estimated GFR > 60, BUN/Creatinine Ratio 22.9, Calcium 8.1 L, Phosphorus 4.7 H, Total Bilirubin 0.8, Direct Bilirubin 0.5 H, AST 53, ALT 73 H, Alkaline Phosphatase 183 H, Total Protein 7.3, Albumin 2.8 L, CBC w Diff NO MAN DIFF REQ, RBC 3.70 L, MCV 87.4, MCH 29.5, MCHC 33.8, RDW 15.1 H, MPV 8.6, Gran % 86.3 H, Lymphocytes % 6.5 L, Monocytes % 6.9, Eosinophils % 0.1, Basophils % 0.2, Absolute Granulocytes 13.5 H, Absolute Lymphocytes 1.0 L, Absolute Monocytes 1.1 H, Absolute Eosinophils 0, Absolute Basophils 0 Vital Signs Date Time Temp Pulse Resp B/P B/P Pulse O2 O2 Flow FiO2 Mean Ox Delivery Rate 03/06 0659 98.5 75 20 111/60 99 Room Air 03/05 2239 98.3 78 20 111/58 97 Room Air 03/05 1407 98.3 71 18 114/72 98 Room Air
--- NOTE | 2018-03-06 14:05 | PN- Gastroenterology ---
Assessment/Plan GI Assessment/Recommendations: ASSESSMENT: 1. Pancreatic Pseudocyst -- no mature pseudocyst seen. 2. Pancreatitis -- unalble to tolerate enteral nutrition, on TPN. Patient with worsening pancreatitis despite conservative management. There is no evidence of mature pseudocyst or WON for drainage. Will discuss with Dr. Diane Nicole as Dr. Antony Vicente is on Sabbatical. 3. Elevated transaminases -- likely due to ceftriaxone as well as underlying pancreatitis. They appear to be trending downwards so would not change antibiotics at this point. 4. Infected Necrosis -- Fluid collection colonized with Enterobacter is stable in size. Patient remains on Ceftriaxone with stable WBC. Patient remains afebrile. 5. Leukocytosis -- WBC decreasing. RECOMMENDATIONS: 1. Would continue Ceftriaxone 2. Continue TPN and intralipids, would not start oral intake at this time. Would consider starting nastojejunal tube feeds. 3. Will discuss with Dr. Nicole regarding further treatment. I have left a message at [facility] for him to call me. At this time there do not appear any mature walled off collections for drainage. Patient does not have signs on CT of further infected necrosis. 4. For now would continue conservative treatment. Could consider trial nasojejunal or nasogastric tube feeding. 5. Dr. Jenae Ardon will be covering the hospital beginning tomorrow morning. Subjective Subjective: Patient still with abdominal pain. CT Scan shows worsening pancreatitis, but no mature pseudocytst or walled off necrosis. I have called [facility]. I am awaiting a return phone call from Dr. Diane Nicole. Dr. Jenae Scott, whom we had spoken with previously is on Sabbatical. Objective Vital Signs and I&Os Vital Signs Date Time Temp Pulse Resp B/P B/P Pulse O2 O2 Flow FiO2 Mean Ox Delivery Rate 03/06 0659 98.5 75 20 111/60 99 Room Air 03/05 2239 98.3 78 20 111/58 97 Room Air 03/05 1407 98.3 71 18 114/72 98 Room Air Intake & Output 03/06 1600 03/06 0400 03/05 1600 03/05 0400 03/04 1600 03/04 0400 Intake Total 970.4 428.9 2352.0 200 1754.4 483.6 Output Total 1250 2175 600 975 900 Balance -279.6 428.9 177.0 -400 779.4 -416.4 Intake, IV 60 60 80 60 Intake, Lipid 116.8 43.8 232.0 218.8 116.8 Intake, Oral 60 50 570 200 100 Intake, 733.6 275.1 1470 1375.6 366.8 TPN/PPN Number 1 1 Bowel Movements Output, 450 50 Emesis Output, Urine 1250 1725 600 925 900 Patient 196 lb 194 lb 193 lb Weight Weight Bed scale Measurement Method Physical Exam General Appearance: alert, anxious, comfortable Respiratory: normal breath sounds, lungs clear Cardiovascular: regular rate/rhythm, Normal S1 and S2 without rub, murmur or gallop Abdomen: normal bowel sounds, soft, no organomegaly, mild diffuse upper abdominal tenderness wtihout rebound or guarding Neurologic/Psychiatric: awake, alert, oriented x 3 Current Medications: Current Medications Sig/Oz Start time Last Medication Dose Route Stop Time Status Admin Acetaminophen 650 MG Q4P PRN 02/18 1630 AC 02/22 PO 1505 Ceftriaxone Sodium 1,000 MG DAILY@1700 02/28 1700 AC 03/05 IV 1705 Chlorpromazine 25 MG Q6P PRN 02/24 1845 AC 02/28 PO 0221 Fat Emulsion 350 ML Q24H 03/06 190 AC Intravenous IV 03/07 185 Fat Emulsion 350 ML Q24H 03/05 1900 AC 03/05 Intravenous IV 03/06 1859 2009 Fat Emulsion 350 ML Q24H 03/04 1900 DC 03/04 Intravenous IV 03/05 185 194 Gabapentin 300 MG Q8 02/18 1400 AC 03/06 PO 1340 Heparin Sodium 5,000 UNIT Q8 02/04 0600 03/06 (Porcine) SC 1340 Hydromorphone HCl 2 MG Q3P PRN 02/17 1800 AC 03/06 IV 1130 Nicotine 7 MG DAILY PRN 02/27 1359 AC 03/06 TOP 0825 Omeprazole 40 MG DAILY AC 02/07 0700 03/06 PO 0502 Ondansetron HCl 4 MG Q6P PRN 02/04 0245 03/05 IV 1010 Oxycodone HCl 10 MG Q4P PRN 02/23 1100 AC 03/06 PO 1340 Total Parenteral 1 UNIT 1900 03/06 1900 AC Nutrition IV 09/14 1859 Total Parenteral 1 UNIT ONE 03/06 1015 DC Nutrition IV 03/07 1014 Total Parenteral 1 UNIT ONE 03/05 190 AC 03/05 Nutrition IV 03/06 Total Parenteral 1 UNIT 0 03/04 1900 DC 03/04 Nutrition IV 03/05 Results Pertinent Lab Results: Laboratory Tests 03/06 03/06 0620 0500 Chemistry Sodium (137 - 145 mmol/L) 131 L Potassium (3.5 - 5.1 mmol/L) 4.7 Chloride (98 - 107 mmol/L) 96 L Carbon Dioxide (22 - 30 mmol/L) 27 Anion Gap (5 - 16) 8 BUN (9 - 20 mg/dL) 15 Creatinine (0.7 - 1.2 mg/dL) 0.6 L Estimated GFR (>60 ml/min) > 60 BUN/Creatinine Ratio (7 - 25 %) 25.0 Triglycerides (<150 mg/dL) 60 Cholesterol (< 200 MG/DL) 111 LDL Cholesterol, Calc (65 - 129 mg/dL) 88 HDL Cholesterol (40 - 60 mg/dL) 11 L Cholesterol/HDL Ratio (0.00 - 4.88 %) 10 H Hematology CBC w Diff MAN DIFF ORDERED MAN DIFF ORDERED WBC (4.8 - 10.8 /CUMM) 11.5 H 10.9 H RBC (4.70 - 6.10 /CUMM) 3.23 L 2.60 L Hgb (14.0 - 18.0 G/DL) 9.6 L 8.4 L Hct (42 - 52 %) 28.3 L 23.9 L MCV (80.0 - 94.0 FL) 87.4 91.9 MCH (27.0 - 31.0 PG) 29.6 32.2 H MCHC (33.0 - 37.0 G/DL) 33.9 35.1 RDW (11.5 - 14.5 %) 15.2 H 15.4 H Plt Count (130 - 400 /CUMM) 290 295 MPV (7.4 - 10.4 FL) 8.6 8.7 Gran % (42.2 - 75.2 %) 86.3 H 87.8 H Lymphocytes % (20.5 - 51.1 %) 6.5 L 8.2 L Monocytes % (1.7 - 9.3 %) 6.8 4.0 Eosinophils % (0 - 5 %) 0 0 Basophils % (0.0 - 2.0 %) 0.4 0 Absolute Granulocytes (1.4 - 6.5 /CUMM) 9.9 H 9.6 H Segmented Neutrophils (42.2 - 75.2 %) 77 H Band Neutrophils (0.0 - 5.0 %) 18 H Absolute Lymphocytes (1.2 - 3.4 /CUMM) 0.7 L 0.9 L Lymphocytes (20.5 - 51.1 %) 4 L Absolute Monocytes (0.10 - 0.60 /CUMM) 0.8 H 0.4 Absolute Eosinophils (0.0 - 0.7 /CUMM) 0 0 Basophils (0.0 - 2.0 %) 1 Absolute Basophils (0.0 - 0.2 /CUMM) 0 0 Nucleated RBCs (0.0 - 0.0 /100WBC) 1 H Platelet Estimate (ADEQUATE) VERIFIED BY SMEAR ADEQUATE Polychromasia 1+ 1+ Poikilocytosis 1+ Anisocytosis 1+ Ovalocytes 1+ Other Body Source Fld Total RBCs Counted (%) 100 12 03/04 0553 1999 Chemistry Sodium (137 - 145 mmol/L) 131 L Cancelled Potassium (3.5 - 5.1 mmol/L) 4.7 Cancelled Chloride (98 - 107 mmol/L) 97 L Cancelled Carbon Dioxide (22 - 30 mmol/L) 26 Cancelled Anion Gap (5 - 16) 9 Cancelled BUN (9 - 20 mg/dL) 16 Cancelled Creatinine (0.7 - 1.2 mg/dL) 0.7 Cancelled Estimated GFR (>60 ml/min) > 60 BUN/Creatinine Ratio (7 - 25 %) 22.9 Cancelled Calcium (8.4 - 10.2 mg/dL) 7.8 L Phosphorus (2.5 - 4.5 mg/dL) 4.3 Total Bilirubin (0.2 - 1.3 mg/dL) 0.6 Direct Bilirubin (< 0.4 mg/dL) 0.4 AST (17 - 59 U/L) 56 ALT (21 - 72 U/L) 74 H Alkaline Phosphatase (< 127 U/L) 158 H Total Protein (6.3 - 8.2 g/dL) 6.6 Albumin (3.5 - 5.0 g/dL) 2.6 L Amylase (30 - 110 U/L) 99 Lipase (23 - 300 U/L) 522 H Hematology CBC w Diff NO MAN DIFF REQ WBC (4.8 - 10.8 /CUMM) 13.3 H RBC (4.70 - 6.10 /CUMM) 3.35 L Hgb (14.0 - 18.0 G/DL) 9.9 L Hct (42 - 52 %) 29.3 L MCV (80.0 - 94.0 FL) 87.6 MCH (27.0 - 31.0 PG) 29.5 MCHC (33.0 - 37.0 G/DL) 33.7 RDW (11.5 - 14.5 %) 15.1 H Plt Count (130 - 400 /CUMM) 343 MPV (7.4 - 10.4 FL) 8.4 Gran % (42.2 - 75.2 %) 85.8 H Lymphocytes % (20.5 - 51.1 %) 6.5 L Monocytes % (1.7 - 9.3 %) 7.4 Eosinophils % (0 - 5 %) 0 Basophils % (0.0 - 2.0 %) 0.3 Absolute Granulocytes (1.4 - 6.5 /CUMM) 11.4 H Absolute Lymphocytes (1.2 - 3.4 /CUMM) 0.9 L Absolute Monocytes (0.10 - 0.60 /CUMM) 1.0 H Absolute Eosinophils (0.0 - 0.7 /CUMM) 0 Absolute Basophils (0.0 - 0.2 /CUMM) 0 09/11 0555 Chemistry Sodium (137 - 145 mmol/L) 131 L Potassium (3.5 - 5.1 mmol/L) 4.8 Chloride (98 - 107 mmol/L) 95 L Carbon Dioxide (22 - 30 mmol/L) 25 Anion Gap (5 - 16) 11 BUN (9 - 20 mg/dL) 16 Creatinine (0.7 - 1.2 mg/dL) 0.7 Estimated GFR (>60 ml/min) > 60 BUN/Creatinine Ratio (7 - 25 %) 22.9 Calcium (8.4 - 10.2 mg/dL) 8.1 L Phosphorus (2.5 - 4.5 mg/dL) 4.7 H Total Bilirubin (0.2 - 1.3 mg/dL) 0.8 Direct Bilirubin (< 0.4 mg/dL) 0.5 H AST (17 - 59 U/L) 53 ALT (21 - 72 U/L) 73 H Alkaline Phosphatase (< 127 U/L) 183 H Total Protein (6.3 - 8.2 g/dL) 7.3 Albumin (3.5 - 5.0 g/dL) 2.8 L Hematology CBC w Diff NO MAN DIFF REQ WBC (4.8 - 10.8 /CUMM) 15.7 H RBC (4.70 - 6.10 /CUMM) 3.70 L Hgb (14.0 - 18.0 G/DL) 10.9 L Hct (42 - 52 %) 32.3 L MCV (80.0 - 94.0 FL) 87.4 MCH (27.0 - 31.0 PG) 29.5 MCHC (33.0 - 37.0 G/DL) 33.8 RDW (11.5 - 14.5 %) 15.1 H Plt Count (130 - 400 /CUMM) 435 H MPV (7.4 - 10.4 FL) 8.6 Gran % (42.2 - 75.2 %) 86.3 H Lymphocytes % (20.5 - 51.1 %) 6.5 L Monocytes % (1.7 - 9.3 %) 6.9 Eosinophils % (0 - 5 %) 0.1 Basophils % (0.0 - 2.0 %) 0.2 Absolute Granulocytes (1.4 - 6.5 /CUMM) 13.5 H Absolute Lymphocytes (1.2 - 3.4 /CUMM) 1.0 L Absolute Monocytes (0.10 - 0.60 /CUMM) 1.1 H Absolute Eosinophils (0.0 - 0.7 /CUMM) 0 Absolute Basophils (0.0 - 0.2 /CUMM) 0
[2018-03-06 14:15] VITALS: BP 139/64
[2018-03-06 21:08] VITALS: BP 112/47
[2018-03-07 05:27] LABS: ABSOLUTE BASOPHIL COUNT 0 /CUMM (0.0-0.2); ABSOLUTE EOSINOPHIL COUNT 0 /CUMM (0.0-0.7); ABSOLUTE GRANULOCYTE CT 11.4 /CUMM (1.4-6.5); ABSOLUTE MONOCYTE COUNT 0.9 /CUMM (0.10-0.60); BASOPHIL % 0 % (0.0-2.0); EOSINOPHIL % 0.3 % (0-5); HEMATOCRIT 29.9 % (42-52); MEAN CORPUSCULAR HGB 29.4 PG (27.0-31.0); MEAN CORPUSCULAR HGB CONC 33.9 G/DL (33.0-37.0); MEAN CORPUSCULAR VOLUME 86.5 FL (80.0-94.0); MEAN PLATELET VOLUME 8.2 FL (7.4-10.4); PLATELET COUNT 351 /CUMM (130-400); RED BLOOD CELL CT 3.46 /CUMM (4.70-6.10); WHITE BLOOD CELL COUNT 13.3 /CUMM (4.8-10.8)
[2018-03-07 05:55] LABS: GRANULOCYTE % 85.8 % (42.2-75.2)
[2018-03-07 06:21] VITALS: BP 118/75
--- NOTE | 2018-03-07 08:01 | PN- Housestaff ---
Subjective Follow-up For: Pancreatic pseudocyst with infxn Subjective: Saw pt at bedside. No acute overnight events or complaints. He did endorse some worsening of RLQ abdominal pain which is new for him. He does not have rebound, rigidity or guarding. He says a warm rice sock makes the pain better. Review of Systems Constitutional: Denies: chills, fever. EENTM: Reports: no symptoms. Cardiovascular: Denies: chest pain, palpitations. Respiratory: Denies: short of breath. Gastrointestinal: Reports: no symptoms. Genitourinary: Reports: no symptoms. Musculoskeletal: Reports: no symptoms. Objective Last 24 Hrs of Vital Signs/I&O Vital Signs Date Time Temp Pulse Resp B/P B/P Pulse O2 O2 Flow FiO2 Mean Ox Delivery Rate 03/07 0621 99.3 75 18 118/75 97 Room Air 03/06 2108 99.1 75 18 112/47 97 Room Air 03/06 1600 95 Room Air Room Air 03/06 1415 97.7 83 18 139/64 98 Room Air Intake & Output 03/07 1600 03/07 0800 03/07 0000 Intake Total 850.4 850.4 Output Total 900 700 Balance -49.6 150.4 Intake, Lipid 116.8 116.8 Intake, 733.6 733.6 TPN/PPN Output, Urine 900 700 Patient 90.52 kg Weight Weight Bed scale Measurement Method Physical Exam General Appearance: Alert, Oriented X3, Cooperative, No Acute Distress Skin: No Significant Lesion HEENT: Atraumatic, PERRLA, EOMI Cardiovascular: Regular Rate, Normal S1, Normal S2 Lungs: Normal Air Movement Abdomen: Soft Neurological: Normal Speech Extremities: No Edema Current Medications: Current Medications Sig/Oz Start time Last Medication Dose Route Stop Time Status Admin Acetaminophen 650 MG Q4P PRN 02/18 1630 AC 02/22 PO 1505 Ceftriaxone Sodium 1,000 MG DAILY@1700 02/28 1700 AC 03/06 IV 1633 Chlorpromazine 25 MG Q6P PRN 02/24 1845 AC 02/28 PO 0221 Fat Emulsion 350 ML Q24H 03/07 1900 AC Intravenous IV 03/08 1859 Fat Emulsion 350 ML Q24H 03/06 1900 AC 03/06 Intravenous IV 03/07 185 1925 Fat Emulsion 350 ML Q24H 09/12 1900 DC 03/05 Intravenous IV 03/06 Gabapentin 300 MG Q8 02/18 1400 AC 03/07 PO 0433 Heparin Sodium 5,000 UNIT Q8 02/04 0600 AC 03/07 (Porcine) SC 0433 Hydromorphone HCl 2 MG Q3P PRN 02/17 1800 AC 03/07 IV 0835 Nicotine 7 MG DAILY PRN 02/27 1359 AC 03/07 TOP 0835 Omeprazole 40 MG DAILY AC 02/07 0700 AC 03/07 PO 0433 Ondansetron HCl 4 MG Q6P PRN 02/04 0245 AC 03/06 IV 1912 Oxycodone HCl 10 MG Q4P PRN 02/23 1100 AC 03/07 PO 0658 Total Parenteral 1 UNIT 03/07 190 Nutrition IV 03/08 185 Total Parenteral 1 UNIT 03/06 1900 03/06 Nutrition IV 03/07 185 1925 Total Parenteral 1 UNIT ONE 03/06 1015 MD Nutrition IV 03/07 1014 Total Parenteral 1 UNIT ONE 03/05 190 MD 03/05 Nutrition IV 03/06 Last 24 Hrs of Lab/Steven Results Last 24 Hrs of Labs/Mics: Laboratory Tests 03/07/18 0445: Anion Gap 8, Estimated GFR > 60, BUN/Creatinine Ratio 22.9, CBC w Diff NO MAN DIFF REQ, RBC 3.46 L, MCV 86.5, MCH 29.4, MCHC 33.9, RDW 15.0 H, MPV 8.2, Gran % 85.8 H, Lymphocytes % 7.4 L, Monocytes % 6.5, Eosinophils % 0.3, Basophils % 0, Absolute Granulocytes 11.4 H, Absolute Lymphocytes 1.0 L, Absolute Monocytes 0.9 H, Absolute Eosinophils 0, Absolute Basophils 0 Assessment/Plan Assessment: Assessment: This is a 52yo M w/ PMH of diverticulitis, kidney stones s/p lithotripsy, gallstones s/p cholecystectomy, s/p Pippa procedure w/ temporary colostomy followed by revision in 2015, s/p hernia repair, reversible ischemia on nuclear stress test status post cardiac cath recently in 2014 presented to [facility] w/ N/V/D/ severe intermittent abd pain since 1pm of 02/03/2018, endorsed loose BM, w/ intermittent non-bloody vomiting. Patient found to have acute pancreatitis complicated by infected necrosis (cx showing enterobacter) and pseudocyst, now NPO on TPN. ----- PLAN: Infected pancreatic pseudocyts: He remains afebrile, white count 13.3 today, while on Ceftriaxone. Remains n.p.o. on TPN day 14. His CT two days ago showed some worsening inflammation without focal collection. Per GI note, it seems like they are going to reach out to Dr. Antony Vicente and his colleagues at [facility] for second opinion. * Continue ceftriaxone started on 02/28/2018. * Appreciate GI and surgery recs * Continue TPN * Con't Thorazine, PPI and Zofran Failure to advance diet requiring Parenteral feeding (TPN): On TPN (on day 14). Lipid panel looked wnl two days ago. * we will trend trigs and periodically prealbumin * Adjust TPN as per electrolytes * NPO Transaminitis: DDX DILI Secondary to ceftriaxone vs underlying pancreatitis. Seems to be trending down. * Con't Monitor Hyponatremia: We will continue with TPN with electrolytes tailored to address his hyponatremia proving. We will increase sodium to 100 meq/L. FC/n.p.o. on TPN/DVT prophylaxis with subcutaneous heparin/is ambulating in hallways Problem List: 1. Anemia Pain Ratin Pain Location: none Pain Goal: Remain pain free Pain Plan: current reg Tomorrow's Labs & Rationales: cbc bep
--- NOTE | 2018-03-07 10:58 | PN- Att Addend ---
Attending Addendum Attending Brief Note No new issues. Hyperalimentation IV continues. Temp max 99 3, white count 13,300. Rest of the vital signs are stable no changes on physical examination. GI to check with pancreatic specialist in [place] to see if there is any other recommendations and other treatments we should do. Intake & Output 03/07 1600 03/07 0400 03/06 1600 03/06 0400 03/05 1600 03/05 0400 Intake Total 850.4 850.4 1725.4 428.9 2352.0 200 Output Total 200 1400 1700 2175 600 Balance 650.4 -549.6 25.4 428.9 177.0 -400 Intake, IV 60 60 80 Intake, Lipid 116.8 116.8 116.8 43.8 232.0 Intake, Oral 540 50 570 200 Intake, 733.6 733.6 1008.6 275.1 1470 TPN/PPN Number 1 Bowel Movements Output, 450 Emesis Output, Urine 200 1400 1700 1725 600 Patient 200 lb 196 lb 194 lb Weight Weight Bed scale Bed scale Measurement Method Current Medications Sig/Oz Start time Last Medication Dose Route Stop Time Status Admin Acetaminophen 650 MG Q4P PRN 02/18 1630 AC 02/22 PO 1505 Ceftriaxone Sodium 1,000 MG DAILY@1700 02/28 1700 AC 03/06 IV 1633 Chlorpromazine 25 MG Q6P PRN 02/24 1845 AC 02/28 PO 0221 Fat Emulsion 350 ML Q24H 03/07 1900 AC Intravenous IV 03/08 1859 Fat Emulsion 350 ML Q24H 03/06 1900 AC 03/06 Intravenous IV 03/07 1859 1925 Fat Emulsion 350 ML Q24H 03/05 1900 MO 03/05 Intravenous IV 03/06 185 2009 Gabapentin 300 MG Q8 02/18 1400 AC 03/07 PO 0433 Heparin Sodium 5,000 UNIT Q8 02/04 0600 AC 03/07 (Porcine) SC 0433 Hydromorphone HCl 2 MG Q3P PRN 02/17 1800 AC 03/07 IV 0835 Nicotine 7 MG DAILY PRN 02/27 1359 AC 03/07 TOP 0835 Omeprazole 40 MG DAILY AC 02/07 0700 AC 03/07 PO 0433 Ondansetron HCl 4 MG Q6P PRN 02/04 0245 AC 03/06 IV 1912 Oxycodone HCl 10 MG Q4P PRN 02/23 1100 AC 03/07 PO 0658 Total Parenteral 1 UNIT 03/07 AC Nutrition IV 03/08 1859 Total Parenteral 1 UNIT 03/06 AC 03/06 Nutrition IV 03/07 Total Parenteral 1 UNIT ONE 03/05 1900 DC 03/05 Nutrition IV 03/06 Laboratory Tests 03/07/18 0445: Anion Gap 8, Estimated GFR > 60, BUN/Creatinine Ratio 22.9, CBC w Diff NO MAN DIFF REQ, RBC 3.46 L, MCV 86.5, MCH 29.4, MCHC 33.9, RDW 15.0 H, MPV 8.2, Gran % 85.8 H, Lymphocytes % 7.4 L, Monocytes % 6.5, Eosinophils % 0.3, Basophils % 0, Absolute Granulocytes 11.4 H, Absolute Lymphocytes 1.0 L, Absolute Monocytes 0.9 H, Absolute Eosinophils 0, Absolute Basophils 0 03/06/18 0620: Anion Gap 8, Estimated GFR > 60, BUN/Creatinine Ratio 25.0, Triglycerides 60, Cholesterol 111, LDL Cholesterol, Calc 88, HDL Cholesterol 11 L, Cholesterol/ HDL Ratio 10 H, CBC w Diff MAN DIFF ORDERED, RBC 3.23 L, MCV 87.4, MCH 29.6, MCHC 33.9, RDW 15.2 H, MPV 8.6, Gran % 86.3 H, Lymphocytes % 6.5 L, Monocytes % 6.8, Eosinophils % 0, Basophils % 0.4, Absolute Granulocytes 9.9 H, Absolute Lymphocytes 0.7 L, Absolute Monocytes 0.8 H, Absolute Eosinophils 0, Absolute Basophils 0, Platelet Estimate VERIFIED BY SMEAR, Polychromasia 1+, Anisocytosis 1+ 03/06/18 0500: CBC w Diff MAN DIFF ORDERED, RBC 2.60 L, MCV 91.9, MCH 32.2 H, MCHC 35.1, RDW 15.4 H, MPV 8.7, Gran % 87.8 H, Lymphocytes % 8.2 L, Monocytes % 4.0, Eosinophils % 0, Basophils % 0, Absolute Granulocytes 9.6 H, Segmented Neutrophils 77 H, Band Neutrophils 18 H, Absolute Lymphocytes 0.9 L, Lymphocytes 4 L, Absolute Monocytes 0.4, Absolute Eosinophils 0, Basophils 1, Absolute Basophils 0, Nucleated RBCs 1 H, Platelet Estimate ADEQUATE, Polychromasia 1+, Poikilocytosis 1+, Ovalocytes 1+, Fld Total RBCs Counted 100 03/05/18 0553: Anion Gap 9, Estimated GFR > 60, BUN/Creatinine Ratio 22.9, Calcium 7.8 L, Phosphorus 4.3, Total Bilirubin 0.6, Direct Bilirubin 0.4, AST 56, ALT 74 H, Alkaline Phosphatase 158 H, Total Protein 6.6, Albumin 2.6 L, Amylase 99, Lipase 522 H, CBC w Diff NO MAN DIFF REQ, RBC 3.35 L, MCV 87.6, MCH 29.5, MCHC 33.7, RDW 15.1 H, MPV 8.4, Gran % 85.8 H, Lymphocytes % 6.5 L, Monocytes % 7.4, Eosinophils % 0, Basophils % 0.3, Absolute Granulocytes 11.4 H, Absolute Lymphocytes 0.9 L, Absolute Monocytes 1.0 H, Absolute Eosinophils 0, Absolute Basophils 0 03/04/18 2000: Sodium Cancelled, Potassium Cancelled, Chloride Cancelled, Carbon Dioxide Cancelled, Anion Gap Cancelled, BUN Cancelled, Creatinine Cancelled, BUN/ Creatinine Ratio Cancelled Vital Signs Date Time Temp Pulse Resp B/P B/P Pulse O2 O2 Flow FiO2 Mean Ox Delivery Rate 03/07 0621 99.3 75 18 118/75 97 Room Air 03/06 2108 99.1 75 18 112/47 97 Room Air 03/06 1600 95 Room Air Room Air 03/06 1415 97.7 83 18 139/64 98 Room Air
[2018-03-07 13:50] VITALS: BP 124/66
[2018-03-07 22:11] VITALS: BP 126/68
[2018-03-08 05:02] VITALS: BP 112/68
--- NOTE | 2018-03-08 08:45 | PN- Housestaff ---
Subjective Follow-up For: Pancreatic pseudocyst with infxn Subjective: Seen and examined. Sitting comfortably in the chair. No overnight acute events reported. Does not offer any complaints at present. Review of Systems Constitutional: Reports: see HPI. Objective Last 24 Hrs of Vital Signs/I&O Vital Signs Date Time Temp Pulse Resp B/P B/P Pulse O2 O2 Flow FiO2 Mean Ox Delivery Rate 03/08 0502 98.7 72 20 112/68 97 Room Air 03/07 2211 98.4 80 18 126/68 98 Room Air Intake & Output 03/08 1600 03/08 0800 03/08 0000 Intake Total 850.4 850.4 Output Total 740 700 Balance 110.4 150.4 Intake, Lipid 116.8 116.8 Intake, 733.6 733.6 TPN/PPN Output, Urine 740 700 Patient 201 lb Weight Weight Bed scale Measurement Method Physical Exam General Appearance: Alert, Oriented X3, Cooperative Other Physical Findings: Skin: No Significant Lesion HEENT: Atraumatic, PERRLA, EOMI Cardiovascular: Regular Rate, Normal S1, Normal S2 Lungs: Normal Air Movement Abdomen: Soft Neurological: Normal Speech Extremities: No Edema Current Medications: Current Medications Sig/Oz Start time Last Medication Dose Route Stop Time Status Admin Acetaminophen 650 MG Q4P PRN 02/18 1630 AC 02/22 PO 1505 Calcium Gluconate 1 GM ONCE ONE 03/08 1300 CAN Sodium Chloride 100 ML IV 03/08 1359 Ceftriaxone Sodium 1,000 MG DAILY@1700 02/28 1700 AC 03/07 IV 1739 Chlorpromazine 25 MG Q6P PRN 02/24 1845 AC 02/28 PO 0221 Fat Emulsion 200 ML 03/08 190 AC Intravenous IV 03/09 1859 Fat Emulsion 350 ML Q24H 03/07 1900 AC 03/07 Intravenous IV 03/08 185 2053 Fat Emulsion 350 ML Q24H 03/06 1900 DC 03/06 Intravenous IV 03/07 185 1925 Gabapentin 300 MG Q8 02/18 1400 AC 03/08 PO 1328 Heparin Sodium 5,000 UNIT Q8 02/04 0600 AC 03/08 (Porcine) SC 1328 Hydromorphone HCl 2 MG Q3P PRN 02/17 1800 AC 03/08 IV 1358 Nicotine 7 MG DAILY PRN 02/27 1359 AC 03/07 TOP 0835 Omeprazole 40 MG DAILY AC 02/07 0700 AC 03/08 PO 0426 Ondansetron HCl 4 MG Q6P PRN 02/04 0245 AC 03/08 IV 1328 Oxycodone HCl 10 MG Q4P PRN 02/23 1100 AC 03/08 PO 0655 Total Parenteral 1 UNIT 03/08 1900 AC Nutrition IV 03/09 1859 Total Parenteral 1 UNIT 03/07 1900 AC 03/07 Nutrition IV 03/08 Total Parenteral 1 UNIT 03/06 1900 DC 03/06 Nutrition IV 03/07 1859 192 Last 24 Hrs of Lab/Steven Results Last 24 Hrs of Labs/Mics: Laboratory Tests 03/08/18 1145: Anion Gap 8, Estimated GFR > 60, BUN/Creatinine Ratio 25.7 H 03/08/18 1035: Anion Gap 12, Estimated GFR > 60, BUN/Creatinine Ratio 18.8, Prealbumin 6.2 L, Triglycerides 522 H, CBC w Diff MAN DIFF ORDERED, RBC 3.03 L, MCV 91.1, MCH 31.4 H, MCHC 34.5, RDW 15.7 H, MPV 8.4, Gran % 88.1 H, Lymphocytes % 6.3 L, Monocytes % 5.4, Eosinophils % 0.1, Basophils % 0.1, Absolute Granulocytes 9.7 H, Absolute Lymphocytes 0.7 L, Absolute Monocytes 0.6, Absolute Eosinophils 0, Absolute Basophils 0, Platelet Estimate VERIFIED BY SMEAR, Anisocytosis 1+ Assessment/Plan Assessment: This is a 52yo M w/ PMH of diverticulitis, kidney stones s/p lithotripsy, gallstones s/p cholecystectomy, s/p Pippa procedure w/ temporary colostomy followed by revision in 2016, s/p hernia repair, reversible ischemia on nuclear stress test status post cardiac cath recently in 2014 presented to [facility] w/ N/V/D/ severe intermittent abd pain since 1pm of 02/03/2018, endorsed loose BM, w/ intermittent non-bloody vomiting. Patient found to have acute pancreatitis complicated by infected necrosis (cx showing enterobacter) and pseudocyst, now NPO on TPN. ----- PLAN: Infected pancreatic pseudocyts: He remains afebrile, white count 13.3 today, while on Ceftriaxone. Remains n.p.o. on TPN day 14. His CT two days ago showed some worsening inflammation without focal collection. Per GI note, it seems like they are going to reach out to Dr. Antony Vicente and his colleagues at [facility] for second opinion. * Continue ceftriaxone started on 02/28/2018. * Appreciate GI and surgery recs * Continue TPN * Con't Thorazine, PPI and Zofran Failure to advance diet requiring Parenteral feeding (TPN): On TPN (on day 14). Lipid panel looked wnl two days ago. * we will trend trigs and periodically prealbumin * Adjust TPN as per electrolytes * NPO * Consider NG/NG tube trial in future Transaminitis: DDX DILI Secondary to ceftriaxone vs underlying pancreatitis. Seems to be trending down. * Con't Monitor Hyponatremia: We will continue with TPN with electrolytes tailored to address his hyponatremia proving. Increase sodium 115 in TPN FC/n.p.o. on TPN/DVT prophylaxis with subcutaneous heparin/is ambulating in hallways Update patient's morning labs were different from his baseline with potassium of 6.5 at that point an EKG was done which showed increased amplitude of P waves which was somewhat similar to his previous EKG however there was no pointed peaking at that point. Repeat labs were ordered which showed sodium of 130 and potassium of 4.6. Problem List: 1. Acute pancreatitis with infected necrosis Pain Ratin Pain Location: na Pain Goal: Pain 4 or less Pain Plan: prn Tomorrow's Labs & Rationales: bep
[2018-03-08 11:03] LABS: ABSOLUTE BASOPHIL COUNT 0 /CUMM (0.0-0.2); ABSOLUTE EOSINOPHIL COUNT 0 /CUMM (0.0-0.7); ABSOLUTE GRANULOCYTE CT 9.7 /CUMM (1.4-6.5); ABSOLUTE LYMPH COUNT 0.7 /CUMM (1.2-3.4); ABSOLUTE MONOCYTE COUNT 0.6 /CUMM (0.10-0.60); BASOPHIL % 0.1 % (0.0-2.0); EOSINOPHIL % 0.1 % (0-5); GRANULOCYTE % 88.1 % (42.2-75.2); HEMATOCRIT 27.6 % (42-52); MEAN CORPUSCULAR HGB 31.4 PG (27.0-31.0); MEAN CORPUSCULAR HGB CONC 34.5 G/DL (33.0-37.0); MEAN PLATELET VOLUME 8.4 FL (7.4-10.4); PLATELET COUNT 272 /CUMM (130-400); RBC DISTRIBUTION WIDTH 15.7 % (11.5-14.5); RED BLOOD CELL CT 3.03 /CUMM (4.70-6.10); WHITE BLOOD CELL COUNT 11.1 /CUMM (4.8-10.8)
[2018-03-08 11:10] LABS: MEAN CORPUSCULAR VOLUME 91.1 FL (80.0-94.0)
--- NOTE | 2018-03-08 12:44 | PN- Gastroenterology ---
Assessment/Plan GI Assessment/Recommendations: 1. Pancreatic organizing fluid collections-- no mature pseudocyst seen on most recent imaging. 2. Pancreatitis -- unalble to tolerate enteral nutrition, on TPN. Patient with worsening pancreatitis despite conservative management. There is no evidence of mature pseudocyst or WON for drainage. 3. Elevated transaminases -- likely due to ceftriaxone as well as underlying pancreatitis. They appear to be trending downwards so would not change antibiotics at this point. 4. Infected Necrosis -- Fluid collection colonized with Enterobacter is stable in size. Patient remains on Ceftriaxone with stable WBC. Patient remains afebrile. 5. Leukocytosis -- WBC decreasing. RECOMMENDATIONS: 1. Would continue Ceftriaxone 2. Continue TPN and intralipids, would not start oral intake at this time. Would consider starting nastojejunal tube feeds. 3. Will discuss with Dr. Nicole regarding further treatment 4. For now would continue conservative treatment. Could consider trial nasojejunal or nasogastric tube feeding. Subjective Subjective: Upper abdominal pain slowly improving. Lower abdominal pain persistent. Intermittent nausea, without vomiting. Tolerating TPN. Nothing by mouth. Small bowel movements. Objective Vital Signs and I&Os Vital Signs Date Time Temp Pulse Resp B/P B/P Pulse O2 O2 Flow FiO2 Mean Ox Delivery Rate 03/08 0502 98.7 72 20 112/68 97 Room Air 03/07 2211 98.4 80 18 126/68 98 Room Air 03/07 1350 98.4 80 18 124/66 98 Room Air Intake & Output 03/08 1600 03/08 0400 03/07 1600 03/07 0400 03/06 0400 Intake Total 850.4 850.4 1700.8 850.4 1725.4 428.9 Output Total 787 184 6099 1400 1700 Balance 110.4 150.4 700.8 -549.6 25.4 428.9 Intake, IV 850.4 60 60 Intake, Lipid 116.8 116.8 116.8 116.8 116.8 43.8 Intake, Oral 540 50 Intake, 733.6 733.6 733.6 733.6 1008.6 275.1 TPN/PPN Output, Urine 961 278 7468 1400 1700 Patient 201 lb 200 lb 196 lb Weight Weight Bed scale Bed scale Bed scale Measurement Method Physical Exam: Alert and oriented. Sclera anicteric. Abdomen mildly distended, tender. No edema. Current Medications: Current Medications Sig/Oz Start time Last Medication Dose Route Stop Time Status Admin Acetaminophen 650 MG Q4P PRN 02/18 1630 AC 02/22 PO 1505 Ceftriaxone Sodium 1,000 MG DAILY@1700 02/28 1700 AC 03/07 IV 1739 Chlorpromazine 25 MG Q6P PRN 02/24 1845 AC 02/28 PO 0221 Fat Emulsion 350 ML Q24H 03/07 1900 AC 03/07 Intravenous IV 03/08 185 205 Fat Emulsion 350 ML Q24H 03/06 1900 DC 03/06 Intravenous IV 03/07 185 192 Gabapentin 300 MG Q8 02/18 1400 AC 03/08 PO 0426 Heparin Sodium 5,000 UNIT Q8 02/04 0600 AC 03/08 (Porcine) SC 0426 Hydromorphone HCl 2 MG Q3P PRN 02/17 1800 AC 03/08 IV 1004 Nicotine 7 MG DAILY PRN 02/27 1359 AC 03/07 TOP 0835 Omeprazole 40 MG DAILY AC 02/07 0700 AC 03/08 PO 0426 Ondansetron HCl 4 MG Q6P PRN 02/04 0245 AC 03/08 IV 0435 Oxycodone HCl 10 MG Q4P PRN 02/23 1100 AC 03/08 PO 0655 Total Parenteral 1 UNIT 19003/07 190 AC 03/07 Nutrition IV 03/08 1852053 Total Parenteral 1 UNIT 1900 03/06 1900 DC 03/06 Nutrition IV 03/07 185 192 Results Pertinent Lab Results: Laboratory Tests 03/08 03/08 1145 1035 Chemistry Sodium (137 - 145 mmol/L) Pending 126 L Potassium (3.5 - 5.1 mmol/L) Pending 6.5 *H Chloride (98 - 107 mmol/L) Pending 92 L Carbon Dioxide (22 - 30 mmol/L) Pending 22 Anion Gap (5 - 16) Pending 12 BUN (9 - 20 mg/dL) Pending 15 Creatinine (0.7 - 1.2 mg/dL) Pending 0.8 Estimated GFR (>60 ml/min) > 60 BUN/Creatinine Ratio (7 - 25 %) Pending 18.8 Prealbumin (17.6 - 36.0 mg/dL) 6.2 L Triglycerides (<150 mg/dL) 522 H Hematology CBC w Diff MAN DIFF ORDERED WBC (4.8 - 10.8 /CUMM) 11.1 H RBC (4.70 - 6.10 /CUMM) 3.03 L Hgb (14.0 - 18.0 G/DL) 9.5 L Hct (42 - 52 %) 27.6 L MCV (80.0 - 94.0 FL) 91.1 MCH (27.0 - 31.0 PG) 31.4 H MCHC (33.0 - 37.0 G/DL) 34.5 RDW (11.5 - 14.5 %) 15.7 H Plt Count (130 - 400 /CUMM) 272 MPV (7.4 - 10.4 FL) 8.4 Gran % (42.2 - 75.2 %) 88.1 H Lymphocytes % (20.5 - 51.1 %) 6.3 L Monocytes % (1.7 - 9.3 %) 5.4 Eosinophils % (0 - 5 %) 0.1 Basophils % (0.0 - 2.0 %) 0.1 Absolute Granulocytes (1.4 - 6.5 /CUMM) 9.7 H Segmented Neutrophils (42.2 - 75.2 %) Pending Absolute Lymphocytes (1.2 - 3.4 /CUMM) 0.7 L Absolute Monocytes (0.10 - 0.60 /CUMM) 0.6 Absolute Eosinophils (0.0 - 0.7 /CUMM) 0 Absolute Basophils (0.0 - 0.2 /CUMM) 0 03/07 03/06 0445 0620 Chemistry Sodium (137 - 145 mmol/L) 131 L 131 L Potassium (3.5 - 5.1 mmol/L) 4.9 4.7 Chloride (98 - 107 mmol/L) 97 L 96 L Carbon Dioxide (22 - 30 mmol/L) 26 27 Anion Gap (5 - 16) 8 8 BUN (9 - 20 mg/dL) 16 15 Creatinine (0.7 - 1.2 mg/dL) 0.7 0.6 L Estimated GFR (>60 ml/min) > 60 > 60 BUN/Creatinine Ratio (7 - 25 %) 22.9 25.0 Triglycerides (<150 mg/dL) 60 Cholesterol (< 200 MG/DL) 111 LDL Cholesterol, Calc (65 - 129 mg/dL) 88 HDL Cholesterol (40 - 60 mg/dL) 11 L Cholesterol/HDL Ratio (0.00 - 4.88 %) 10 H Hematology CBC w Diff NO MAN DIFF REQ MAN DIFF ORDERED WBC (4.8 - 10.8 /CUMM) 13.3 H 11.5 H RBC (4.70 - 6.10 /CUMM) 3.46 L 3.23 L Hgb (14.0 - 18.0 G/DL) 10.1 L 9.6 L Hct (42 - 52 %) 29.9 L 28.3 L MCV (80.0 - 94.0 FL) 86.5 87.4 MCH (27.0 - 31.0 PG) 29.4 29.6 MCHC (33.0 - 37.0 G/DL) 33.9 33.9 RDW (11.5 - 14.5 %) 15.0 H 15.2 H Plt Count (130 - 400 /CUMM) 351 290 MPV (7.4 - 10.4 FL) 8.2 8.6 Gran % (42.2 - 75.2 %) 85.8 H 86.3 H Lymphocytes % (20.5 - 51.1 %) 7.4 L 6.5 L Monocytes % (1.7 - 9.3 %) 6.5 6.8 Eosinophils % (0 - 5 %) 0.3 0 Basophils % (0.0 - 2.0 %) 0 0.4 Absolute Granulocytes (1.4 - 6.5 /CUMM) 11.4 H 9.9 H Absolute Lymphocytes (1.2 - 3.4 /CUMM) 1.0 L 0.7 L Absolute Monocytes (0.10 - 0.60 /CUMM) 0.9 H 0.8 H Absolute Eosinophils (0.0 - 0.7 /CUMM) 0 0 Absolute Basophils (0.0 - 0.2 /CUMM) 0 0 Platelet Estimate (ADEQUATE) VERIFIED BY SMEAR Polychromasia 1+ Anisocytosis 1+ 03/06 0500 Hematology CBC w Diff MAN DIFF ORDERED WBC (4.8 - 10.8 /CUMM) 10.9 H RBC (4.70 - 6.10 /CUMM) 2.60 L Hgb (14.0 - 18.0 G/DL) 8.4 L Hct (42 - 52 %) 23.9 L MCV (80.0 - 94.0 FL) 91.9 MCH (27.0 - 31.0 PG) 32.2 H MCHC (33.0 - 37.0 G/DL) 35.1 RDW (11.5 - 14.5 %) 15.4 H Plt Count (130 - 400 /CUMM) 295 MPV (7.4 - 10.4 FL) 8.7 Gran % (42.2 - 75.2 %) 87.8 H Lymphocytes % (20.5 - 51.1 %) 8.2 L Monocytes % (1.7 - 9.3 %) 4.0 Eosinophils % (0 - 5 %) 0 Basophils % (0.0 - 2.0 %) 0 Absolute Granulocytes (1.4 - 6.5 /CUMM) 9.6 H Segmented Neutrophils (42.2 - 75.2 %) 77 H Band Neutrophils (0.0 - 5.0 %) 18 H Absolute Lymphocytes (1.2 - 3.4 /CUMM) 0.9 L Lymphocytes (20.5 - 51.1 %) 4 L Absolute Monocytes (0.10 - 0.60 /CUMM) 0.4 Absolute Eosinophils (0.0 - 0.7 /CUMM) 0 Basophils (0.0 - 2.0 %) 1 Absolute Basophils (0.0 - 0.2 /CUMM) 0 Nucleated RBCs (0.0 - 0.0 /100WBC) 1 H Platelet Estimate (ADEQUATE) ADEQUATE Polychromasia 1+ Poikilocytosis 1+ Ovalocytes 1+ Other Body Source Fld Total RBCs Counted (%) 100
--- NOTE | 2018-03-08 13:30 | Event Note ---
Event Note Event Note: Update patient's morning labs were different from his baseline with potassium of 6.5 at that point an EKG was done which showed increased amplitude of P waves which was somewhat similar to his previous EKG however there was no pointed peaking at that point. Repeat labs were ordered which showed sodium of 130 and potassium of 4.6. he remains completely asymptomatic . The TPN order had to be put in before 12:00pm, so the order was placed based on his previous labs because the new labs were still pending. Later when the labs are back I reached out to the pharmacy who increased K in TPN to 30meq (his usual amount) after contacting the company.
--- NOTE | 2018-03-08 13:51 | PN- Att Addend ---
Attending Addendum Attending Brief Note Mr. Bynum was interviewed and examined. His EMR was reviewed. At the time of my visit noted nausea and abdominal pain. He continues on TPN and Intralipid. He is afebrile with normal vital signs. He is in mild to moderate distress complaining of nausea and abdominal pain. Heart and lung exams are benign. WBC is 11,100 which has decreased from the previous day. His H&H is stable and his platelet count is normal. Sodium is noted to be 130 and repeat potassium level is 4.6 millimole/dL. We are continuing to treat his pancreatitis with TPN/Intralipid and n.p.o. status. We are continuing ceftriaxone for his Enterobacter infection. We are continuing to provide analgesia and anti-emetics. We are continuing his parenteral PPI. We have reviewed Dr. Ardon's note and will implement his suggestions.
[2018-03-08 14:30] VITALS: BP 103/58
[2018-03-08 21:59] VITALS: BP 104/78
[2018-03-09 06:24] VITALS: BP 104/62
--- NOTE | 2018-03-09 08:33 | PN- Housestaff ---
Subjective Follow-up For: Pancreatic pseudocyst with infxn Subjective: Patient had signficant nausea/abdominal pain in the morning. Improved with pain regimen. No bowel movements for the past 5 days. provided with suppository. Review of Systems Constitutional: Reports: see HPI. Objective Last 24 Hrs of Vital Signs/I&O Vital Signs Date Time Temp Pulse Resp B/P B/P Pulse O2 O2 Flow FiO2 Mean Ox Delivery Rate 03/09 624 99.4 69 20 104/62 99 03/08 2159 99.4 80 20 104/78 94 Room Air 03/08 1430 98.7 79 20 103/58 100 Room Air Intake & Output 03/09 1600 03/09 0800 03/09 0000 Intake Total 870.4 Output Total 675 400 Balance -675 470.4 Intake, IV 20 Intake, Lipid 116.8 Intake, 733.6 TPN/PPN Output, Urine 675 400 Patient 90.265 kg Weight Weight Bed scale Measurement Method Physical Exam General Appearance: Alert, Oriented X3, Cooperative Skin: No Rashes, No Breakdown HEENT: Atraumatic, PERRLA, EOMI Neck: Supple, No JVD Cardiovascular: Regular Rate, Normal S1, Normal S2 Lungs: Clear to Auscultation, Normal Air Movement Abdomen: Normal Bowel Sounds, Soft, tenderness in the right lower quadrant region. Neurological: Sensation Intact, Cranial Nerves 3-12 NL Extremities: No Clubbing, No Cyanosis, No Edema Current Medications: Current Medications Sig/Oz Start time Last Medication Dose Route Stop Time Status Admin Acetaminophen 650 MG Q4P PRN 02/18 1630 AC 02/22 PO 1505 Bisacodyl 10 MG ONCE ONE 03/09 0915 DC 03/09 OH 03/09 0916 0941 Ceftriaxone Sodium 1,000 MG DAILY@1700 02/28 1700 AC 03/09 IV 1619 Chlorpromazine 25 MG Q6P PRN 02/24 1845 AC 02/28 PO 0221 Fat Emulsion 200 ML 03/09 1900 AC 03/09 Intravenous IV 03/10 185 2028 Fat Emulsion 200 ML 03/08 190 DC 03/08 Intravenous IV 03/09 185 1944 Gabapentin 300 MG Q8 02/18 1400 AC 03/09 PO 2120 Heparin Sodium 5,000 UNIT Q8 02/04 0600 AC 03/09 (Porcine) SC 2120 Hydromorphone HCl 2 MG Q3P PRN 03/09 0230 AC 03/09 IV 2120 Hydromorphone HCl 0 .STK-MED ONE 03/08 2352 DC .ROUTE Hydromorphone HCl 2 MG Q3P PRN 02/17 1800 MD 03/09 IV 0002 Nicotine 7 MG DAILY PRN 02/27 1359 03/07 TOP 0835 Omeprazole 40 MG DAILY AC 02/07 0700 03/09 PO 0532 Ondansetron HCl 4 MG Q6P PRN 02/04 0245 03/09 IV 0901 Oxycodone HCl 10 MG Q4P PRN 02/23 1100 AC 03/09 PO 1619 Total Parenteral 1 UNIT 03/09 190 03/09 Nutrition IV 03/10 Total Parenteral 1 UNIT 03/08 190 MD 03/08 Nutrition IV 03/09 1859 1942 Last 24 Hrs of Lab/Steven Results Last 24 Hrs of Labs/Mics: Laboratory Tests 03/09/18 0700: Anion Gap 9, Estimated GFR > 60, BUN/Creatinine Ratio 30.0 H, Prealbumin 5.7 L , Triglycerides 45, CBC w Diff NO MAN DIFF REQ, RBC 3.09 L, MCV 87.5, MCH 29.7, MCHC 33.9, RDW 14.9 H, MPV 8.8, Gran % 88.5 H, Lymphocytes % 5.0 L, Monocytes % 6.3, Eosinophils % 0.1, Basophils % 0.1, Absolute Granulocytes 10.1 H, Absolute Lymphocytes 0.6 L, Absolute Monocytes 0.7 H, Absolute Eosinophils 0, Absolute Basophils 0 Assessment/Plan Assessment: This is a 52yo M w/ PMH of diverticulitis, kidney stones s/p lithotripsy, gallstones s/p cholecystectomy, s/p Pippa procedure w/ temporary colostomy followed by revision in 2016, s/p hernia repair, reversible ischemia on nuclear stress test status post cardiac cath recently in 2014 presented to [facility] w/ N/V/D/ severe intermittent abd pain since 1pm of 02/03/2018, endorsed loose BM, w/ intermittent non-bloody vomiting. Patient found to have acute pancreatitis complicated by infected necrosis (cx showing enterobacter) and pseudocyst, now NPO on TPN. ----- PLAN: Infected pancreatic pseudocyts: He remains afebrile, white count 11.4 today, while on Ceftriaxone. Remains n.p.o. on TPN day 15. His CT two days ago showed some worsening inflammation without focal collection. Per GI note, it seems like they are going to reach out to Dr. Antony Vicente and his colleagues at [facility] for second opinion. * Continue ceftriaxone started on 02/28/2018. * Appreciate GI and surgery recs * Continue TPN * Con't Thorazine, PPI and Zofran Failure to advance diet requiring Parenteral feeding (TPN): On TPN (on day 15). * we will trend trigs and periodically prealbumin * Adjust TPN as per electrolytes * NPO * Consider NG/NG tube trial in future Transaminitis: DDX DILI Secondary to ceftriaxone vs underlying pancreatitis. Seems to be trending down. * Con't Monitor Hyponatremia: We will continue with TPN with electrolytes tailored to address his hyponatremia proving. Increase sodium 115 in TPN FC/n.p.o. on TPN/DVT prophylaxis with subcutaneous heparin/is ambulating in hallways Problem List: 1. Pseudocyst of pancreas 2. Acute pancreatitis with infected necrosis Pain Ratin Pain Location: abdomen Pain Goal: Pain 4 or less Pain Plan: tylenol morphine Tomorrow's Labs & Rationales: bep cbc
[2018-03-09 10:12] LABS: ABSOLUTE BASOPHIL COUNT 0 /CUMM (0.0-0.2); ABSOLUTE EOSINOPHIL COUNT 0 /CUMM (0.0-0.7); ABSOLUTE GRANULOCYTE CT 10.1 /CUMM (1.4-6.5); ABSOLUTE LYMPH COUNT 0.6 /CUMM (1.2-3.4); ABSOLUTE MONOCYTE COUNT 0.7 /CUMM (0.10-0.60); BASOPHIL % 0.1 % (0.0-2.0); EOSINOPHIL % 0.1 % (0-5); GRANULOCYTE % 88.5 % (42.2-75.2); MEAN CORPUSCULAR HGB 29.7 PG (27.0-31.0); MEAN CORPUSCULAR HGB CONC 33.9 G/DL (33.0-37.0); MEAN CORPUSCULAR VOLUME 87.5 FL (80.0-94.0); MEAN PLATELET VOLUME 8.8 FL (7.4-10.4); PLATELET COUNT 246 /CUMM (130-400); RBC DISTRIBUTION WIDTH 14.9 % (11.5-14.5); RED BLOOD CELL CT 3.09 /CUMM (4.70-6.10)
[2018-03-09 10:48] LABS: WHITE BLOOD CELL COUNT 11.4 /CUMM (4.8-10.8)
--- NOTE | 2018-03-09 11:02 | PN- Att Addend ---
Attending Addendum Attending Brief Note Mr. Bynum was interviewed and examined. His EMR was reviewed. He states that he is feeling better today with decreased epigastric discomfort but some lower abdominal discomfort. The increased nausea and vomiting from yesterday has resolved. He does note some constipation. T-max 99.4. Heart and respirations are stable and acceptable. His blood pressure is also stable and acceptable. He is saturating well on room air. He is in no acute distress. Lungs are clear with equal breath sounds. Heart exam reveals a regular rate and rhythm. His abdomen is softly distended with mild epigastric tenderness. WBC is 11,400 which is essentially unchanged from the previous day. The remainder of his CBC is essentially unchanged. His electrolytes and renal function are essentially unchanged. We are continuing to treat his pancreatitis with n.p.o. status, TPN, analgesics, and anti-emetics as needed. We have treated his constipation with a suppository and will follow to see if this resolves.
[2018-03-09 14:27] VITALS: BP 127/65
[2018-03-09 22:49] VITALS: BP 104/67
[2018-03-10 06:57] VITALS: BP 100/47
[2018-03-10 08:39] LABS: ABSOLUTE EOSINOPHIL COUNT 0 /CUMM (0.0-0.7); ABSOLUTE LYMPH COUNT 0.9 /CUMM (1.2-3.4); BASOPHIL % 0.5 % (0.0-2.0)
[2018-03-10 10:08] LABS: ABSOLUTE BASOPHIL COUNT 0 /CUMM (0.0-0.2); ABSOLUTE EOSINOPHIL COUNT 0 /CUMM (0.0-0.7); ABSOLUTE GRANULOCYTE CT 8.6 /CUMM (1.4-6.5); ABSOLUTE MONOCYTE COUNT 0.6 /CUMM (0.10-0.60); MEAN PLATELET VOLUME 8.1 FL (7.4-10.4); WHITE BLOOD CELL COUNT 10.1 /CUMM (4.8-10.8)
[2018-03-10 10:11] LABS: ABSOLUTE LYMPH COUNT 0.9 /CUMM (1.2-3.4); BASOPHIL % 0.1 % (0.0-2.0); EOSINOPHIL % 0 % (0-5); HEMATOCRIT 26.4 % (42-52); MEAN CORPUSCULAR HGB 29.5 PG (27.0-31.0); MEAN CORPUSCULAR HGB CONC 34.3 G/DL (33.0-37.0); PLATELET COUNT 247 /CUMM (130-400); RBC DISTRIBUTION WIDTH 14.9 % (11.5-14.5); RED BLOOD CELL CT 3.07 /CUMM (4.70-6.10)
[2018-03-10 10:12] LABS: MEAN CORPUSCULAR VOLUME 86.2 FL (80.0-94.0)
[2018-03-10 10:14] LABS: ABSOLUTE BASOPHIL COUNT 0 /CUMM (0.0-0.2); ABSOLUTE GRANULOCYTE CT 8.1 /CUMM (1.4-6.5); ABSOLUTE MONOCYTE COUNT 0.7 /CUMM (0.10-0.60); EOSINOPHIL % 0.1 % (0-5); GRANULOCYTE % 83.5 % (42.2-75.2); HEMATOCRIT 27.2 % (42-52); MEAN CORPUSCULAR HGB 30.4 PG (27.0-31.0); MEAN CORPUSCULAR HGB CONC 32.2 G/DL (33.0-37.0); MEAN PLATELET VOLUME 9.9 FL (7.4-10.4); PLATELET COUNT 241 /CUMM (130-400); RBC DISTRIBUTION WIDTH 16.3 % (11.5-14.5); RED BLOOD CELL CT 2.88 /CUMM (4.70-6.10); WHITE BLOOD CELL COUNT 9.8 /CUMM (4.8-10.8)
[2018-03-10 10:15] LABS: MEAN CORPUSCULAR VOLUME 94.7 FL (80.0-94.0)
[2018-03-10 10:23] LABS: GRANULOCYTE % 85.6 % (42.2-75.2)
--- NOTE | 2018-03-10 11:10 | PN- Att Addend ---
Attending Addendum Attending Brief Note Patient laying in bed sleeping at this moment. Nurse stated patient has the hiccups again. Vital signs are stable no fever. No new changes on physical. White count today is 10,100. Will check with GI to see if they consulted with pancreatic specialist at the a.m. and see what further recommendations we can get. Intake & Output 03/10 0400 03/09 1600 03/09 0400 03/08 1600 03/08 0400 Intake Total 920.0 800.0 1695.0 870.4 1880.4 850.4 Output Total 650 600 789 621 5163 700 Balance 270.0 200.0 895.0 195.4 490.4 150.4 Intake, IV 730 20 60 Intake, Lipid 66.4 66.4 66.4 116.8 236.8 116.8 Intake, Oral 120 0 100 120 Intake, 733.6 733.6 798.6 733.6 1463.6 733.6 TPN/PPN Number 0 0 1 Bowel Movements Output, 150 Emesis Output, Urine 650 600 396 665 3065 700 Patient 199 lb 201 lb Weight Weight Bed scale Bed scale Measurement Method Current Medications Sig/Oz Start time Last Medication Dose Route Stop Time Status Admin Acetaminophen 650 MG Q4P PRN 02/18 1630 AC 02/22 PO 1505 Ceftriaxone Sodium 1,000 MG DAILY@1700 02/28 1700 AC 03/09 IV 1619 Chlorpromazine 25 MG Q6P PRN 02/24 1845 03/10 PO 0543 Fat Emulsion 200 ML 03/09 1900 AC 03/09 Intravenous IV 03/10 185 2028 Fat Emulsion 200 ML 03/08 1900 MT 03/08 Intravenous IV 03/09 185 1944 Gabapentin 300 MG Q8 02/18 1400 AC 03/10 PO 0532 Heparin Sodium 5,000 UNIT Q8 02/04 0600 AC 03/10 (Porcine) SC 0532 Hydromorphone HCl 2 MG Q3P PRN 03/09 0230 AC 03/10 IV 0906 Nicotine 7 MG DAILY PRN 02/27 1359 AC 03/07 TOP 0835 Omeprazole 40 MG DAILY AC 02/07 0700 AC 03/10 PO 0532 Ondansetron HCl 4 MG Q6P PRN 02/04 0245 AC 03/09 IV 0901 Oxycodone HCl 10 MG Q4P PRN 02/23 1100 AC 03/09 PO 2353 Total Parenteral 1 UNIT 03/09 AC 03/09 Nutrition IV 03/10 Total Parenteral 1 UNIT 03/08 MT 03/08 Nutrition IV 03/09 Laboratory Tests 03/10/18 0940: Anion Gap 7, Estimated GFR > 60, BUN/Creatinine Ratio 28.6 H, CBC w Diff NO MAN DIFF REQ, RBC 3.07 L, MCV 86.2, MCH 29.5, MCHC 34.3, RDW 14.9 H, MPV 8.1, Gran % 85.6 H, Lymphocytes % 8.7 L, Monocytes % 5.6, Eosinophils % 0, Basophils % 0.1, Absolute Granulocytes 8.6 H, Absolute Lymphocytes 0.9 L, Absolute Monocytes 0.6, Absolute Eosinophils 0, Absolute Basophils 0 03/10/18 0555: Anion Gap 12, Estimated GFR > 60, BUN/Creatinine Ratio 20.0, CBC w Diff NO MAN DIFF REQ, RBC 2.88 L, MCV 94.7 H, MCH 30.4, MCHC 32.2 L, RDW 16.3 H, MPV 9.9 , Gran % 83.5 H, Lymphocytes % 8.8 L, Monocytes % 7.1, Eosinophils % 0.1, Basophils % 0.5, Absolute Granulocytes 8.1 H, Absolute Lymphocytes 0.9 L, Absolute Monocytes 0.7 H, Absolute Eosinophils 0, Absolute Basophils 0 03/09/18 0700: Anion Gap 9, Estimated GFR > 60, BUN/Creatinine Ratio 30.0 H, Prealbumin 5.7 L , Triglycerides 45, CBC w Diff NO MAN DIFF REQ, RBC 3.09 L, MCV 87.5, MCH 29.7, MCHC 33.9, RDW 14.9 H, MPV 8.8, Gran % 88.5 H, Lymphocytes % 5.0 L, Monocytes % 6.3, Eosinophils % 0.1, Basophils % 0.1, Absolute Granulocytes 10.1 H, Absolute Lymphocytes 0.6 L, Absolute Monocytes 0.7 H, Absolute Eosinophils 0, Absolute Basophils 0 03/08/18 1145: Anion Gap 8, Estimated GFR > 60, BUN/Creatinine Ratio 25.7 H 03/08/18 1035: Anion Gap 12, Estimated GFR > 60, BUN/Creatinine Ratio 18.8, Prealbumin 6.2 L, Triglycerides 522 H, CBC w Diff MAN DIFF ORDERED, RBC 3.03 L, MCV 91.1, MCH 31.4 H, MCHC 34.5, RDW 15.7 H, MPV 8.4, Gran % 88.1 H, Lymphocytes % 6.3 L, Monocytes % 5.4, Eosinophils % 0.1, Basophils % 0.1, Absolute Granulocytes 9.7 H, Absolute Lymphocytes 0.7 L, Absolute Monocytes 0.6, Absolute Eosinophils 0, Absolute Basophils 0, Platelet Estimate VERIFIED BY SMEAR, Anisocytosis 1+ Vital Signs Date Time Temp Pulse Resp B/P B/P Pulse O2 O2 Flow FiO2 Mean Ox Delivery Rate 03/10 0657 98.1 69 20 100/47 100 Room Air 03/09 2249 99.7 73 20 104/67 98 Room Air 03/09 1427 98.2 81 18 127/65 98 Room Air
--- NOTE | 2018-03-10 12:22 | PN- Housestaff ---
Subjective Follow-up For: PANCREATITIS Subjective: Saw pt at bedside. He is still much the same as before. He has persistent abdominal pain. Still on TPN Review of Systems Constitutional: Reports: no symptoms. Cardiovascular: Reports: no symptoms. Respiratory: Reports: no symptoms. Gastrointestinal: Reports: abdominal pain. Denies: diarrhea, vomiting. Genitourinary: Reports: no symptoms. Objective Last 24 Hrs of Vital Signs/I&O Vital Signs Date Time Temp Pulse Resp B/P B/P Pulse O2 O2 Flow FiO2 Mean Ox Delivery Rate 03/10 1430 98.0 79 18 111/68 100 Room Air 03/10 0657 98.1 69 20 100/47 100 Room Air 03/09 2249 99.7 73 20 104/67 98 Room Air Intake & Output 03/10 1600 03/10 0800 03/10 0000 Intake Total 920.0 800.0 Output Total 650 600 Balance 270.0 200.0 Intake, Lipid 66.4 66.4 Intake, Oral 120 0 Intake, 733.6 733.6 TPN/PPN Number 0 0 Bowel Movements Output, Urine 650 600 Physical Exam General Appearance: Alert, Oriented X3, Cooperative, No Acute Distress Skin: No Significant Lesion HEENT: Atraumatic, PERRLA, EOMI Neck: Supple Cardiovascular: Regular Rate, Normal S1, Normal S2 Lungs: Normal Air Movement Abdomen: Soft, SOME DIFFUSE TENDERNESS BUT NO REBOUND OR GUARDING Current Medications: Current Medications Sig/Oz Start time Last Medication Dose Route Stop Time Status Admin Acetaminophen 650 MG Q4P PRN 02/18 1630 AC 02/22 PO 1505 Ceftriaxone Sodium 1,000 MG DAILY@1700 02/28 1700 AC 03/10 IV 1609 Chlorpromazine 25 MG Q6P PRN 02/24 1845 AC 03/10 PO 1609 Fat Emulsion 200 ML 03/10 1900 AC Intravenous IV 03/11 1859 Fat Emulsion 200 ML 03/09 1900 AC 03/09 Intravenous IV 03/10 185 2028 Fat Emulsion 200 ML 03/08 1900 DC 03/08 Intravenous IV 03/09 185 1944 Gabapentin 300 MG Q8 02/18 1400 AC 03/10 PO 1350 Heparin Sodium 5,000 UNIT Q8 02/04 0600 AC 03/10 (Porcine) SC 1350 Hydromorphone HCl 2 MG Q3P PRN 03/09 0230 03/10 IV 1351 Nicotine 7 MG DAILY PRN 02/27 1359 03/07 TOP 0835 Omeprazole 40 MG DAILY 02/07 0700 03/10 PO 0532 Ondansetron HCl 4 MG Q6P PRN 02/04 0245 03/09 IV 0901 Oxycodone HCl 10 MG Q4P PRN 02/23 1100 03/09 PO 2353 Total Parenteral 1 UNIT 03/10 190 AC Nutrition IV 03/11 185 Total Parenteral 1 UNIT 03/09 1900 AC 03/09 Nutrition IV 03/10 1852027 Total Parenteral 1 UNIT 03/08 1900 [place] 03/08 Nutrition IV 03/09 185 194 Last 24 Hrs of Lab/Steven Results Last 24 Hrs of Labs/Mics: Laboratory Tests 03/10/18 0940: Anion Gap 7, Estimated GFR > 60, BUN/Creatinine Ratio 28.6 H, CBC w Diff NO MAN DIFF REQ, RBC 3.07 L, MCV 86.2, MCH 29.5, MCHC 34.3, RDW 14.9 H, MPV 8.1, Gran % 85.6 H, Lymphocytes % 8.7 L, Monocytes % 5.6, Eosinophils % 0, Basophils % 0.1, Absolute Granulocytes 8.6 H, Absolute Lymphocytes 0.9 L, Absolute Monocytes 0.6, Absolute Eosinophils 0, Absolute Basophils 0 03/10/18 0555: Anion Gap 12, Estimated GFR > 60, BUN/Creatinine Ratio 20.0, CBC w Diff NO MAN DIFF REQ, RBC 2.88 L, MCV 94.7 H, MCH 30.4, MCHC 32.2 L, RDW 16.3 H, MPV 9.9 , Gran % 83.5 H, Lymphocytes % 8.8 L, Monocytes % 7.1, Eosinophils % 0.1, Basophils % 0.5, Absolute Granulocytes 8.1 H, Absolute Lymphocytes 0.9 L, Absolute Monocytes 0.7 H, Absolute Eosinophils 0, Absolute Basophils 0 Assessment/Plan Assessment: This is a 52yo M w/ PMH of diverticulitis, kidney stones s/p lithotripsy, gallstones s/p cholecystectomy, s/p Pippa procedure w/ temporary colostomy followed by revision in 2015, s/p hernia repair, reversible ischemia on nuclear stress test status post cardiac cath recently in 2014 presented to [facility] w/ N/V/D/ severe intermittent abd pain since 1pm of 02/03/2018, endorsed loose BM, w/ intermittent non-bloody vomiting. Patient found to have acute pancreatitis complicated by infected necrosis (cx showing enterobacter) and pseudocyst, now NPO on TPN. ----- PLAN: Infected pancreatic pseudocyts: He remains afebrile W/ mild leukocytosis while on Ceftriaxone. Remains n.p.o. on TPN day 16. His CT 3 days ago showed some worsening inflammation without focal collection. Per GI note, it seems like they are going to reach out to Dr. Antony Vicente and his colleagues at [facility] for second opinion. * Continue ceftriaxone started on 02/28/2018. * Appreciate GI and surgery recs * Continue TPN * Con't Thorazine, PPI and Zofran Failure to advance diet requiring Parenteral feeding (TPN): On TPN (on day 16). * we will trend trigs and periodically prealbumin * Adjust TPN as per electrolytes * NPO * Consider NG/NG tube trial in future * appreciate nutrition recs Transaminitis: DDX DILI Secondary to ceftriaxone vs underlying pancreatitis. Seems to be trending down. * Con't Monitor Hyponatremia: We will continue with TPN with electrolytes tailored to address his hyponatremia proving. Increase sodium 115 in TPN FC/n.p.o. on TPN/DVT prophylaxis with subcutaneous heparin/is ambulating in hallways Problem List: 1. Anemia 2. Acute pancreatitis with infected necrosis Pain Ratin Pain Location: none Pain Goal: Remain pain free Pain Plan: none Tomorrow's Labs & Rationales: cbc bep
[2018-03-10 14:30] VITALS: BP 111/68
[2018-03-10 21:43] VITALS: BP 104/54
[2018-03-11 06:12] VITALS: BP 102/60
[2018-03-11 06:27] LABS: ABSOLUTE BASOPHIL COUNT 0 /CUMM (0.0-0.2); ABSOLUTE EOSINOPHIL COUNT 0 /CUMM (0.0-0.7); ABSOLUTE GRANULOCYTE CT 7.2 /CUMM (1.4-6.5); ABSOLUTE LYMPH COUNT 0.9 /CUMM (1.2-3.4); ABSOLUTE MONOCYTE COUNT 0.6 /CUMM (0.10-0.60); BASOPHIL % 0.3 % (0.0-2.0); EOSINOPHIL % 0 % (0-5); GRANULOCYTE % 82.4 % (42.2-75.2); HEMATOCRIT 26.2 % (42-52); MEAN CORPUSCULAR HGB 29.3 PG (27.0-31.0); MEAN CORPUSCULAR HGB CONC 33.6 G/DL (33.0-37.0); MEAN PLATELET VOLUME 8.4 FL (7.4-10.4); PLATELET COUNT 242 /CUMM (130-400); RBC DISTRIBUTION WIDTH 14.7 % (11.5-14.5); RED BLOOD CELL CT 3.01 /CUMM (4.70-6.10); WHITE BLOOD CELL COUNT 8.8 /CUMM (4.8-10.8)
--- NOTE | 2018-03-11 06:41 | PN- Housestaff ---
Subjective Follow-up For: INFECTED PANCREATIC NECROSIS Subjective: Saw pt at bedside this AM. No acute overnight complaints or events. He wishes to eat PO. Review of Systems Constitutional: Denies: chills, fever, weakness. EENTM: Reports: no symptoms. Cardiovascular: Denies: chest pain, palpitations. Respiratory: Reports: no symptoms. Gastrointestinal: Reports: abdominal pain, constipation. Genitourinary: Reports: no symptoms. Musculoskeletal: Reports: no symptoms. Objective Last 24 Hrs of Vital Signs/I&O Vital Signs Date Time Temp Pulse Resp B/P B/P Pulse O2 O2 Flow FiO2 Mean Ox Delivery Rate 03/11 0612 98.4 80 19 102/60 96 03/10 2143 98.7 75 20 104/54 99 Room Air 03/10 1430 98.0 79 18 111/68 100 Room Air Intake & Output 03/11 1600 03/11 0800 03/11 0000 Intake Total 860.0 700.0 Output Total 275 350 Balance -275 860.0 350.0 Intake, IV 60 Intake, Lipid 66.4 58.1 Intake, Oral 0 Intake, 733.6 641.9 TPN/PPN Output, Urine 275 350 Patient 89.556 kg Weight Physical Exam General Appearance: Alert, Oriented X3, Cooperative, No Acute Distress HEENT: Atraumatic, PERRLA Neck: Supple Cardiovascular: Regular Rate, Normal S1, Normal S2 Lungs: Clear to Auscultation Abdomen: Soft, some tenderness diffusely but no rebound or guarding Extremities: No Edema Assessment/Plan Assessment: This is a 52yo M w/ PMH of diverticulitis, kidney stones s/p lithotripsy, gallstones s/p cholecystectomy, s/p Pippa procedure w/ temporary colostomy followed by revision in 2016, s/p hernia repair, reversible ischemia on nuclear stress test status post cardiac cath recently in 2014 presented to [facility] w/ N/V/D/ severe intermittent abd pain since 1pm of 02/03/2018, endorsed loose BM, w/ intermittent non-bloody vomiting. Patient found to have acute pancreatitis complicated by infected necrosis (cx showing enterobacter) and pseudocyst, now NPO on TPN. ----- PLAN: Infected pancreatic pseudocyts: He remains afebrile W/ mild leukocytosis while on Ceftriaxone. Remains n.p.o. on TPN day 17. Per GI note, it seems like they are going to reach out to Dr. Antony Vicente and his colleagues at [facility] for second opinion. * Continue ceftriaxone started on 02/28/2018.--> D/C 03/11/2018. Will have to check with Dr. Ardon * Appreciate GI and surgery recs * Continue TPN * Con't Thorazine, PPI and Zofran Failure to advance diet requiring Parenteral feeding (TPN): On TPN; changed him to cyclic feeds * we will trend trigs and periodically prealbumin * Adjust TPN as per electrolytes * NPO * Consider NG/NG tube trial in future * appreciate nutrition recs Transaminitis: DDX DILI Secondary to ceftriaxone vs underlying pancreatitis. Seems to be trending down. * Con't Monitor Hyponatremia: We will continue with TPN with electrolytes tailored to address his hyponatremia proving. Increase sodium 125 in TPN FC/n.p.o. on TPN/DVT prophylaxis with subcutaneous heparin/is ambulating in hallways Problem List: 1. Acute pancreatitis with infected necrosis Pain Ratin Pain Location: none Pain Goal: Remain pain free Pain Plan: none Tomorrow's Labs & Rationales: cbc bep
--- NOTE | 2018-03-11 10:14 | PN- Att Addend ---
Attending Addendum Attending Brief Note No new issues, patient still n.p.o. receiving IV nutrition Vital signs are stable no fever. No changes on physical examination. White count today is down to 8800. Will check with GI see when we can start any oral nourishment and what the future plans are. Also check with the next imaging is recommended. Intake & Output 03/11 1600 03/11 0400 03/10 1600 03/10 0400 03/09 1600 03/09 0400 Intake Total 860.0 700.0 1774.0 800.0 1695.0 870.4 Output Total 350 1150 600 800 675 Balance 860.0 350.0 624.0 200.0 895.0 195.4 Intake, IV 60 730 20 Intake, Lipid 66.4 58.1 130.4 66.4 66.4 116.8 Intake, Oral 0 180 0 100 Intake, 733.6 641.9 1463.6 733.6 798.6 733.6 TPN/PPN Number 0 0 1 Bowel Movements Output, Urine 350 1150 600 800 675 Patient 197 lb 199 lb Weight Weight Bed scale Measurement Method Current Medications Sig/Oz Start time Last Medication Dose Route Stop Time Status Admin Acetaminophen 650 MG Q4P PRN 02/18 1630 02/22 PO 1505 Ceftriaxone Sodium 1,000 MG DAILY@1700 02/28 1700 HI 03/10 IV 1609 Chlorpromazine 25 MG Q6P PRN 02/24 1845 03/11 PO 0123 Fat Emulsion 200 ML 0 03/10 1900 03/10 Intravenous IV 03/11 1859 2000 Fat Emulsion 200 ML 1900 03/09 1900 HI 03/09 Intravenous IV 03/10 185 2028 Gabapentin 300 MG Q8 02/18 1400 03/11 PO 0502 Heparin Sodium 5,000 UNIT Q8 02/04 0600 03/11 (Porcine) SC 0503 Hydromorphone HCl 2 MG Q3P PRN 03/09 0230 03/11 IV 0809 Nicotine 7 MG DAILY PRN 02/27 1359 03/07 TOP 0835 Omeprazole 40 MG DAILY AC 02/07 0700 AC 03/11 PO 0502 Ondansetron HCl 4 MG Q6P PRN 02/04 0245 03/09 IV 0901 Oxycodone HCl 10 MG Q4P PRN 02/23 1100 AC 03/10 PO 2010 Total Parenteral 1 UNIT 03/10 1900 AC 03/10 Nutrition IV 03/11 Total Parenteral 1 UNIT 03/09 190 DC 03/09 Nutrition IV 03/10 Laboratory Tests 03/11/18 0515: Anion Gap 6, Estimated GFR > 60, BUN/Creatinine Ratio 30.0 H, CBC w Diff NO MAN DIFF REQ, RBC 3.01 L, MCV 87.0, MCH 29.3, MCHC 33.6, RDW 14.7 H, MPV 8.4, Gran % 82.4 H, Lymphocytes % 10.0 L, Monocytes % 7.3, Eosinophils % 0, Basophils % 0.3, Absolute Granulocytes 7.2 H, Absolute Lymphocytes 0.9 L, Absolute Monocytes 0.6, Absolute Eosinophils 0, Absolute Basophils 0 03/10/18 0940: Anion Gap 7, Estimated GFR > 60, BUN/Creatinine Ratio 28.6 H, CBC w Diff NO MAN DIFF REQ, RBC 3.07 L, MCV 86.2, MCH 29.5, MCHC 34.3, RDW 14.9 H, MPV 8.1, Gran % 85.6 H, Lymphocytes % 8.7 L, Monocytes % 5.6, Eosinophils % 0, Basophils % 0.1, Absolute Granulocytes 8.6 H, Absolute Lymphocytes 0.9 L, Absolute Monocytes 0.6, Absolute Eosinophils 0, Absolute Basophils 0 03/10/18 0555: Anion Gap 12, Estimated GFR > 60, BUN/Creatinine Ratio 20.0, CBC w Diff NO MAN DIFF REQ, RBC 2.88 L, MCV 94.7 H, MCH 30.4, MCHC 32.2 L, RDW 16.3 H, MPV 9.9 , Gran % 83.5 H, Lymphocytes % 8.8 L, Monocytes % 7.1, Eosinophils % 0.1, Basophils % 0.5, Absolute Granulocytes 8.1 H, Absolute Lymphocytes 0.9 L, Absolute Monocytes 0.7 H, Absolute Eosinophils 0, Absolute Basophils 0 03/09/18 0700: Anion Gap 9, Estimated GFR > 60, BUN/Creatinine Ratio 30.0 H, Prealbumin 5.7 L , Triglycerides 45, CBC w Diff NO MAN DIFF REQ, RBC 3.09 L, MCV 87.5, MCH 29.7, MCHC 33.9, RDW 14.9 H, MPV 8.8, Gran % 88.5 H, Lymphocytes % 5.0 L, Monocytes % 6.3, Eosinophils % 0.1, Basophils % 0.1, Absolute Granulocytes 10.1 H, Absolute Lymphocytes 0.6 L, Absolute Monocytes 0.7 H, Absolute Eosinophils 0, Absolute Basophils 0 03/08/18 1145: Anion Gap 8, Estimated GFR > 60, BUN/Creatinine Ratio 25.7 H 03/08/18 1035: Anion Gap 12, Estimated GFR > 60, BUN/Creatinine Ratio 18.8, Prealbumin 6.2 L, Triglycerides 522 H, CBC w Diff MAN DIFF ORDERED, RBC 3.03 L, MCV 91.1, MCH 31.4 H, MCHC 34.5, RDW 15.7 H, MPV 8.4, Gran % 88.1 H, Lymphocytes % 6.3 L, Monocytes % 5.4, Eosinophils % 0.1, Basophils % 0.1, Absolute Granulocytes 9.7 H, Absolute Lymphocytes 0.7 L, Absolute Monocytes 0.6, Absolute Eosinophils 0, Absolute Basophils 0, Platelet Estimate VERIFIED BY SMEAR, Anisocytosis 1+ Vital Signs Date Time Temp Pulse Resp B/P B/P Pulse O2 O2 Flow FiO2 Mean Ox Delivery Rate 03/11 0612 98.4 80 19 102/60 96 03/10 2143 98.7 75 20 104/54 99 Room Air 03/10 1430 98.0 79 18 111/68 100 Room Air
--- NOTE | 2018-03-11 12:04 | PN- Gastroenterology ---
Assessment/Plan GI Assessment/Recommendations: Acute, smoldering pancreatitis, with evolving necrosis, and several fluid collections, one of which was infected. No clear-cut pseudocyst in formation. Now clinically stable while nothing by mouth/on TPN. Off of antibiotics. No clinical evidence of residual choledocholithiasis. Case discussed with director of pancreatitis at [place]. He will obtain and review all imaging, to decide if any other intervention would be beneficial at this time (endoscopic ultrasound, drainage, etc.). Recommendations: * Continue to follow off antibiotics * Begin low fat diet. If intolerant, will need to consider nasogastric or nasojejunal feeding. The goal is to taper off of TPN. Enteral nutrition will help prevent infected necrosis/recurrence of infected fluid collection. * Goal is to change from parenteral to oral narcotic therapy * Please check CRP Subjective Subjective: Still has lower abdominal pain, but overall improved. No nausea for several days. No fever. Objective Vital Signs and I&Os Vital Signs Date Time Temp Pulse Resp B/P B/P Pulse O2 O2 Flow FiO2 Mean Ox Delivery Rate 03/11 0612 98.4 80 19 102/60 96 03/10 2143 98.7 75 20 104/54 99 Room Air 03/10 1430 98.0 79 18 111/68 100 Room Air Intake & Output 03/11 1600 03/11 0400 03/10 1600 03/10 0400 03/09 1600 03/09 0400 Intake Total 860.0 700.0 1774.0 800.0 1695.0 870.4 Output Total 350 1150 600 800 675 Balance 860.0 350.0 624.0 200.0 895.0 195.4 Intake, IV 60 730 20 Intake, Lipid 66.4 58.1 130.4 66.4 66.4 116.8 Intake, Oral 0 180 0 100 Intake, 733.6 641.9 1463.6 733.6 798.6 733.6 TPN/PPN Number 0 0 1 Bowel Movements Output, Urine 350 1150 600 800 675 Patient 197 lb 199 lb Weight Weight Bed scale Measurement Method Physical Exam: Alert and oriented. Sclera anicteric. No adenopathy. Abdomen nondistended, soft, mild lower tenderness only. Extremities without edema. Pulses intact. Current Medications: Current Medications Sig/Oz Start time Last Medication Dose Route Stop Time Status Admin Acetaminophen 650 MG Q4P PRN 02/18 1630 AC 02/22 PO 1505 Ceftriaxone Sodium 1,000 MG DAILY@1700 02/28 1700 [place] 03/10 IV 1609 Chlorpromazine 25 MG Q6P PRN 02/24 1845 AC 03/11 PO 0123 Fat Emulsion 200 ML 1900 03/10 1900 AC 03/10 Intravenous IV 03/11 Fat Emulsion 200 ML 1900 03/09 1900 DC 03/09 Intravenous IV 03/10 Gabapentin 300 MG Q8 02/18 1400 AC 03/11 PO 0502 Heparin Sodium 5,000 UNIT Q8 02/04 0600 03/11 (Porcine) SC 0503 Hydromorphone HCl 2 MG Q3P PRN 03/09 0230 03/11 IV 1100 Nicotine 7 MG DAILY PRN 02/27 1359 03/07 TOP 0835 Omeprazole 40 MG DAILY AC 02/07 0700 03/11 PO 0502 Ondansetron HCl 4 MG Q6P PRN 02/04 0245 03/09 IV 0901 Oxycodone HCl 10 MG Q4P PRN 02/23 1100 AC 03/10 PO 2010 Total Parenteral 1 UNIT 03/10 190 03/10 Nutrition IV 03/11 Total Parenteral 1 UNIT 1900 03/09 190 TN 03/09 Nutrition IV 03/10 Results Pertinent Lab Results: Laboratory Tests 03/11 03/10 0515 0940 Chemistry Sodium (137 - 145 mmol/L) 133 L 132 L Potassium (3.5 - 5.1 mmol/L) 4.1 4.5 Chloride (98 - 107 mmol/L) 104 97 L Carbon Dioxide (22 - 30 mmol/L) 24 27 Anion Gap (5 - 16) 6 7 BUN (9 - 20 mg/dL) 18 20 Creatinine (0.7 - 1.2 mg/dL) 0.6 L 0.7 Estimated GFR (>60 ml/min) > 60 > 60 BUN/Creatinine Ratio (7 - 25 %) 30.0 H 28.6 H Hematology CBC w Diff NO MAN DIFF REQ NO MAN DIFF REQ WBC (4.8 - 10.8 /CUMM) 8.8 10.1 RBC (4.70 - 6.10 /CUMM) 3.01 L 3.07 L Hgb (14.0 - 18.0 G/DL) 8.8 L 9.1 L Hct (42 - 52 %) 26.2 L 26.4 L MCV (80.0 - 94.0 FL) 87.0 86.2 MCH (27.0 - 31.0 PG) 29.3 29.5 MCHC (33.0 - 37.0 G/DL) 33.6 34.3 RDW (11.5 - 14.5 %) 14.7 H 14.9 H Plt Count (130 - 400 /CUMM) 242 247 MPV (7.4 - 10.4 FL) 8.4 8.1 Gran % (42.2 - 75.2 %) 82.4 H 85.6 H Lymphocytes % (20.5 - 51.1 %) 10.0 L 8.7 L Monocytes % (1.7 - 9.3 %) 7.3 5.6 Eosinophils % (0 - 5 %) 0 0 Basophils % (0.0 - 2.0 %) 0.3 0.1 Absolute Granulocytes (1.4 - 6.5 /CUMM) 7.2 H 8.6 H Absolute Lymphocytes (1.2 - 3.4 /CUMM) 0.9 L 0.9 L Absolute Monocytes (0.10 - 0.60 /CUMM) 0.6 0.6 Absolute Eosinophils (0.0 - 0.7 /CUMM) 0 0 Absolute Basophils (0.0 - 0.2 /CUMM) 0 0 03/10 09/16 0555 0700 Chemistry Sodium (137 - 145 mmol/L) 130 L 132 L Potassium (3.5 - 5.1 mmol/L) 6.6 *H 4.5 Chloride (98 - 107 mmol/L) 96 L 97 L Carbon Dioxide (22 - 30 mmol/L) 22 25 Anion Gap (5 - 16) 12 9 BUN (9 - 20 mg/dL) 18 18 Creatinine (0.7 - 1.2 mg/dL) 0.9 0.6 L Estimated GFR (>60 ml/min) > 60 > 60 BUN/Creatinine Ratio (7 - 25 %) 20.0 30.0 H Prealbumin (17.6 - 36.0 mg/dL) 5.7 L Triglycerides (<150 mg/dL) 45 Hematology CBC w Diff NO MAN DIFF REQ NO MAN DIFF REQ WBC (4.8 - 10.8 /CUMM) 9.8 11.4 H RBC (4.70 - 6.10 /CUMM) 2.88 L 3.09 L Hgb (14.0 - 18.0 G/DL) 8.8 L 9.2 L Hct (42 - 52 %) 27.2 L 27.0 L MCV (80.0 - 94.0 FL) 94.7 H 87.5 MCH (27.0 - 31.0 PG) 30.4 29.7 MCHC (33.0 - 37.0 G/DL) 32.2 L 33.9 RDW (11.5 - 14.5 %) 16.3 H 14.9 H Plt Count (130 - 400 /CUMM) 241 246 MPV (7.4 - 10.4 FL) 9.9 8.8 Gran % (42.2 - 75.2 %) 83.5 H 88.5 H Lymphocytes % (20.5 - 51.1 %) 8.8 L 5.0 L Monocytes % (1.7 - 9.3 %) 7.1 6.3 Eosinophils % (0 - 5 %) 0.1 0.1 Basophils % (0.0 - 2.0 %) 0.5 0.1 Absolute Granulocytes (1.4 - 6.5 /CUMM) 8.1 H 10.1 H Absolute Lymphocytes (1.2 - 3.4 /CUMM) 0.9 L 0.6 L Absolute Monocytes (0.10 - 0.60 /CUMM) 0.7 H 0.7 H Absolute Eosinophils (0.0 - 0.7 /CUMM) 0 0 Absolute Basophils (0.0 - 0.2 /CUMM) 0 0
[2018-03-11 14:42] VITALS: BP 126/76
[2018-03-11 21:08] VITALS: BP 101/61
[2018-03-12 06:56] VITALS: BP 106/56
--- NOTE | 2018-03-12 07:41 | PN- Housestaff ---
Subjective Follow-up For: PANCREATITIS Subjective: Saw pt at bedside this AM. He is still unable to eat much. Only 10% of some jello yesterday Review of Systems Constitutional: Denies: fever, weakness. EENTM: Reports: no symptoms. Cardiovascular: Denies: chest pain, palpitations. Respiratory: Reports: no symptoms. Gastrointestinal: Reports: abdominal pain. Genitourinary: Reports: no symptoms. Musculoskeletal: Reports: no symptoms. Objective Last 24 Hrs of Vital Signs/I&O Vital Signs Date Time Temp Pulse Resp B/P B/P Pulse O2 O2 Flow FiO2 Mean Ox Delivery Rate 03/12 0656 97.5 56 18 106/56 98 03/11 2108 99.2 85 18 101/61 97 Room Air 03/11 1442 98.3 76 18 126/76 98 Room Air Intake & Output 03/12 1600 03/12 0800 03/12 0000 Intake Total 1029.8 368.6 Output Total 400 400 700 Balance -400 629.8 -331.4 Intake, IV 50 20 Intake, Lipid 43.8 22.9 Intake, Oral 240 60 Intake, 696 265.7 TPN/PPN Number 0 0 Bowel Movements Output, Urine 400 400 700 Patient 89.443 kg Weight Physical Exam General Appearance: Alert, Oriented X3, Cooperative, No Acute Distress Skin: No Significant Lesion HEENT: Atraumatic, PERRLA, EOMI Cardiovascular: Regular Rate, Normal S1, Normal S2 Lungs: Normal Air Movement Abdomen: Soft, no rebound or guarding Extremities: No Edema Assessment/Plan Assessment: This is a 52yo M w/ PMH of diverticulitis, kidney stones s/p lithotripsy, gallstones s/p cholecystectomy, s/p Pippa procedure w/ temporary colostomy followed by revision in 2016, s/p hernia repair, reversible ischemia on nuclear stress test status post cardiac cath recently in 2014 presented to [facility] w/ N/V/D/ severe intermittent abd pain since 1pm on 02/03/2018, endorsed loose BM, w/ intermittent non-bloody vomiting. Patient found to have acute pancreatitis complicated by infected necrosis (cx showing enterobacter) and pseudocyst, now on TPN. He is now on Hospital Day 36. ----- PLAN: Infected pancreatic pseudocyts: He remains afebrile W/ mild leukocytosis while on Ceftriaxone. Yesterday was the first day he has been off Ceftriaxone since it was started. We switched him to low fat diet initially, but pt got ever excited, ordered a grilled cheese and proceeded to have severe GI discomfort. Given his poor choices and that low fat diet does have 50g fat in it, I switched him to clear liquid diet. A CRP yesterday was 5.9. Per GI note, it seems like they are going to reach out to Dr. Antony Vicente and his colleagues at [facility] for second opinion. * Continue ceftriaxone started on 02/28/2018.--> D/C 03/11/2018. Will have to check with Dr. Ardon * Appreciate GI and surgery recs * Continue TPN--> We switched it to cyclic TPN and the goal is to get him to slowly wean off it. * Con't Thorazine, PPI and Zofran Failure to advance diet requiring Parenteral feeding (TPN): On TPN; changed him to cyclic feeds * we will trend trigs and periodically prealbumin * Adjust TPN as per electrolytes * If oral feeding does not work will proceed with NG tube trial in future * appreciate nutrition recs Transaminitis: DDX DILI Secondary to ceftriaxone vs underlying pancreatitis. Seems to be trending down. * Con't Monitor Hyponatremia: We will continue with TPN with electrolytes tailored to address his hyponatremia proving. Na is 131 today. FC/n.p.o. on TPN/DVT prophylaxis with subcutaneous heparin/is ambulating in hallways Problem List: 1. Acute pancreatitis with infected necrosis Pain Ratin Pain Location: abdominal Pain Goal: Remain pain free Pain Plan: current reg Tomorrow's Labs & Rationales: cbc bep
[2018-03-12 08:40] LABS: ABSOLUTE BASOPHIL COUNT 0 /CUMM (0.0-0.2); ABSOLUTE EOSINOPHIL COUNT 0 /CUMM (0.0-0.7); ABSOLUTE GRANULOCYTE CT 8.1 /CUMM (1.4-6.5); ABSOLUTE LYMPH COUNT 0.8 /CUMM (1.2-3.4); ABSOLUTE MONOCYTE COUNT 0.8 /CUMM (0.10-0.60); BASOPHIL % 0.4 % (0.0-2.0); EOSINOPHIL % 0 % (0-5); GRANULOCYTE % 83.5 % (42.2-75.2); HEMATOCRIT 25.6 % (42-52); MEAN CORPUSCULAR HGB 29.3 PG (27.0-31.0); MEAN CORPUSCULAR HGB CONC 33.8 G/DL (33.0-37.0); MEAN CORPUSCULAR VOLUME 86.7 FL (80.0-94.0); MEAN PLATELET VOLUME 8.4 FL (7.4-10.4); PLATELET COUNT 249 /CUMM (130-400); RBC DISTRIBUTION WIDTH 14.7 % (11.5-14.5); RED BLOOD CELL CT 2.96 /CUMM (4.70-6.10); WHITE BLOOD CELL COUNT 9.7 /CUMM (4.8-10.8)
--- NOTE | 2018-03-12 10:23 | PN- Att Addend ---
Attending Addendum Attending Brief Note No new complaints. Vital signs are stable no fever. No changes on physical examination. White count still normal today. Will continue treatment as per GI and surgery: Recommendations. Intake & Output 03/12 1600 03/12 0400 03/11 1600 03/11 0400 03/10 1600 03/10 0400 Intake Total 1029.8 368.6 1780.0 700.0 1774.0 800.0 Output Total 800 700 222 886 5381 600 Balance 229.8 -331.4 1505.0 350.0 624.0 200.0 Intake, IV 50 20 60 Intake, Lipid 43.8 22.9 132.8 58.1 130.4 66.4 Intake, Oral 240 60 120 0 180 0 Intake, 696 265.7 1467.2 641.9 1463.6 733.6 TPN/PPN Number 0 0 1 0 0 Bowel Movements Output, Urine 800 700 537 635 6179 600 Patient 197 lb 197 lb Weight Current Medications Sig/Oz Start time Last Medication Dose Route Stop Time Status Admin Acetaminophen 650 MG Q4P PRN 02/18 1630 AC 02/22 PO 1505 Ceftriaxone Sodium 1,000 MG DAILY@1700 03/11 1700 CAN IV Chlorpromazine 25 MG Q6P PRN 02/24 1845 AC 03/11 PO 1721 Fat Emulsion 146 ML Q20H 03/11 1900 AC 03/11 Intravenous IV 03/12 1459 1957 Fat Emulsion 200 ML 1900 03/10 1900 DC 03/10 Intravenous IV 03/11 1859 2000 Gabapentin 300 MG Q8 02/18 1400 AC 03/12 PO 0526 Heparin Sodium 5,000 UNIT Q8 02/04 0600 AC 03/12 (Porcine) SC 0526 Hydromorphone HCl 2 MG Q3P PRN 03/09 0230 AC 03/12 IV 0900 Nicotine 7 MG DAILY PRN 02/27 1359 AC 03/07 TOP 0835 Omeprazole 40 MG DAILY AC 02/07 0700 AC 03/12 PO 0526 Ondansetron HCl 4 MG Q6P PRN 02/04 0245 AC 03/11 IV 1406 Oxycodone HCl 10 MG Q4P PRN 02/23 1100 AC 03/12 PO 0137 Total Parenteral 1 UNIT 1900 03/11 1900 AC 03/11 Nutrition IV 09/19 1459 1957 Total Parenteral 1 UNIT 1900 09/17 1900 DC 03/10 Nutrition IV 03/11 Laboratory Tests 03/12/18 0535: Anion Gap 6, Estimated GFR > 60, BUN/Creatinine Ratio 25.7 H, Glucose 83, Calcium 7.8 L, Phosphorus 4.4, Magnesium 1.7, Total Bilirubin 0.6, AST 41, ALT 67, Alkaline Phosphatase 148 H, Albumin 2.6 L, Prealbumin 5.7 L, Triglycerides 48, CBC w Diff NO MAN DIFF REQ, RBC 2.96 L, MCV 86.7, MCH 29.3, MCHC 33.8, RDW 14.7 H, MPV 8.4, Gran % 83.5 H, Lymphocytes % 7.9 L, Monocytes % 8.2, Eosinophils % 0, Basophils % 0.4, Absolute Granulocytes 8.1 H, Absolute Lymphocytes 0.8 L, Absolute Monocytes 0.8 H, Absolute Eosinophils 0, Absolute Basophils 0 03/11/18 1245: C-Reactive Prot, Quant 5.9 H 03/11/18 0515: Anion Gap 6, Estimated GFR > 60, BUN/Creatinine Ratio 30.0 H, CBC w Diff NO MAN DIFF REQ, RBC 3.01 L, MCV 87.0, MCH 29.3, MCHC 33.6, RDW 14.7 H, MPV 8.4, Gran % 82.4 H, Lymphocytes % 10.0 L, Monocytes % 7.3, Eosinophils % 0, Basophils % 0.3, Absolute Granulocytes 7.2 H, Absolute Lymphocytes 0.9 L, Absolute Monocytes 0.6, Absolute Eosinophils 0, Absolute Basophils 0 03/10/18 0940: Anion Gap 7, Estimated GFR > 60, BUN/Creatinine Ratio 28.6 H, CBC w Diff NO MAN DIFF REQ, RBC 3.07 L, MCV 86.2, MCH 29.5, MCHC 34.3, RDW 14.9 H, MPV 8.1, Gran % 85.6 H, Lymphocytes % 8.7 L, Monocytes % 5.6, Eosinophils % 0, Basophils % 0.1, Absolute Granulocytes 8.6 H, Absolute Lymphocytes 0.9 L, Absolute Monocytes 0.6, Absolute Eosinophils 0, Absolute Basophils 0 03/10/18 0555: Anion Gap 12, Estimated GFR > 60, BUN/Creatinine Ratio 20.0, CBC w Diff NO MAN DIFF REQ, RBC 2.88 L, MCV 94.7 H, MCH 30.4, MCHC 32.2 L, RDW 16.3 H, MPV 9.9 , Gran % 83.5 H, Lymphocytes % 8.8 L, Monocytes % 7.1, Eosinophils % 0.1, Basophils % 0.5, Absolute Granulocytes 8.1 H, Absolute Lymphocytes 0.9 L, Absolute Monocytes 0.7 H, Absolute Eosinophils 0, Absolute Basophils 0 Vital Signs Date Time Temp Pulse Resp B/P B/P Pulse O2 O2 Flow FiO2 Mean Ox Delivery Rate 03/12 0656 97.5 56 18 106/56 98 03/11 2108 99.2 85 18 101/61 97 Room Air 03/11 1442 98.3 76 18 126/76 98 Room Air
[2018-03-12 14:08] VITALS: BP 114/71
--- NOTE | 2018-03-12 16:14 | RADIOLOGY REPORT ---
EXAMINATION: XR PORTABLE ABDOMEN CLINICAL INFORMATION: Pancreatic necrosis and severe inflammation. Set of "different" abdominal pain COMPARISON: CT abdomen pelvis 03/05/2018 TECHNIQUE: AP view of the abdomen. FINDINGS: Nonspecific and nonobstructive bowel gas pattern. No evidence of free air within the abdomen. No evidence of organomegaly. IMPRESSION: Nonspecific and nonobstructive bowel gas pattern. No evidence of free air.
--- NOTE | 2018-03-12 18:58 | Event Note ---
Event Note Event Note: situation- Patient began vomitting around 6.15 pm , yellowsih fluids and I was notified. On checking vitals, Temperatire was 100.4, BP- 100/60, pulse - 80, RR0 20.. Background- Ptainet has infected pancreatic pseudocysts with TPN requirement. assessment- Patient had been on ceftrixone and was stopped to observe off antibiotics. Recommendations- would restart the patient on ceftrixone and tyelenol prn until seen by the morning team.
[2018-03-12 20:22] LABS: ABSOLUTE BASOPHIL COUNT 0 /CUMM (0.0-0.2); ABSOLUTE EOSINOPHIL COUNT 0 /CUMM (0.0-0.7); ABSOLUTE GRANULOCYTE CT 9.1 /CUMM (1.4-6.5); ABSOLUTE LYMPH COUNT 1.1 /CUMM (1.2-3.4); ABSOLUTE MONOCYTE COUNT 0.7 /CUMM (0.10-0.60); BASOPHIL % 0.4 % (0.0-2.0); EOSINOPHIL % 0.4 % (0-5); GRANULOCYTE % 82.4 % (42.2-75.2); HEMATOCRIT 27.7 % (42-52); MEAN CORPUSCULAR HGB 29.3 PG (27.0-31.0); MEAN CORPUSCULAR HGB CONC 33.8 G/DL (33.0-37.0); MEAN CORPUSCULAR VOLUME 86.7 FL (80.0-94.0); MEAN PLATELET VOLUME 8.4 FL (7.4-10.4); PLATELET COUNT 267 /CUMM (130-400); RBC DISTRIBUTION WIDTH 14.8 % (11.5-14.5)
[2018-03-12 21:04] VITALS: BP 94/58
--- NOTE | 2018-03-12 23:30 | Transfer of Care Summary ---
Hospital Course Course Hospital Course: This is a 52yo M w/ PMH of diverticulitis, kidney stones s/p lithotripsy, gallstones s/p cholecystectomy, s/p Pippa procedure w/ temporary colostomy followed by revision in 2016, s/p hernia repair, reversible ischemia on nuclear stress test status post cardiac cath recently in 2014 presented to [facility] w/ N/V/D/ severe intermittent abd pain since 1pm on 02/03/2018. He endorsed loose BM, w/ intermittent non-bloody vomiting and upon work up the patient found to have acute pancreatitis. The following 36 day hospital course is now complicated by smoldering pancreatitis with infected necrosis (cx showing enterobacter) and pseudocyst. He failed enteral feeding trials and was placed on TPN. --- PLAN: Infected pancreatic pseudocyts: At this point, our goal is to switch pt to enteral feedings as much as possible and switch him to oral pain meds. Yesterday he c/o new and worsening abdominal pain. A abd plain film showed no free air. Given that we recently liberalized pt's diet, I suspect it is because of eating. Per GI he is supposed to be on low fat, but I started him on clear liquid bc our low fat diet at still allows 50g of fat. Per GI note, it seems like they are going to reach out to Dr. Antony Vicente and his colleagues at [facility] for second opinion and further recommendations. * The most pressing issue is his antibiotics. Per GI note it says to continue to hold off abx as of 03/11/2018. I attempted to reach out to verify, but was unable to get a final answer. Please follow up with GI regarding the duration of antibiotic therapy. * Continue TPN--> We switched it to cyclic TPN and the goal is to get him to slowly wean off it. Nutrition has been very good about helping me calculate the TPN on a daily basis. Must be ordered by noon every day per pharmacy. * Con't Thorazine, PPI and Zofran * He has r. arm central access and is getting TPN through it. Check site to ensure no line infections. Failure to advance diet requiring Parenteral feeding (TPN): On TPN; changed him to cyclic feeds * we will trend trigs and periodically prealbuminb (there is a TPN order set with the necessary labs) * Adjust TPN as per electrolytes * If oral feeding does not work will proceed with NG tube trial in future * appreciate nutrition recs Transaminitis: DDX DILI Secondary to ceftriaxone vs underlying pancreatitis. Seems to be trending down. Additionally, switching from continuous to cyclic TPN should help with the transamnitis as well. * Con't Monitor Hyponatremia: Continue with TPN with electrolytes tailored to address his hyponatremia proving. FC/n.p.o. on TPN/DVT prophylaxis with subcutaneous heparin/is ambulating in hallways Assessment/Plan: see above
[2018-03-13 04:00] VITALS: BP 98/70
[2018-03-13 07:03] VITALS: BP 100/70
[2018-03-13 08:36] LABS: ABSOLUTE BASOPHIL COUNT 0 /CUMM (0.0-0.2); ABSOLUTE EOSINOPHIL COUNT 0 /CUMM (0.0-0.7); ABSOLUTE LYMPH COUNT 0.6 /CUMM (1.2-3.4); ABSOLUTE MONOCYTE COUNT 0.6 /CUMM (0.10-0.60); BASOPHIL % 0.3 % (0.0-2.0); EOSINOPHIL % 0.1 % (0-5); GRANULOCYTE % 84.1 % (42.2-75.2); HEMATOCRIT 25.8 % (42-52); MEAN CORPUSCULAR HGB 29.4 PG (27.0-31.0); MEAN CORPUSCULAR HGB CONC 34.1 G/DL (33.0-37.0); MEAN CORPUSCULAR VOLUME 86.2 FL (80.0-94.0); MEAN PLATELET VOLUME 8.8 FL (7.4-10.4); PLATELET COUNT 241 /CUMM (130-400); RBC DISTRIBUTION WIDTH 15.1 % (11.5-14.5); RED BLOOD CELL CT 2.99 /CUMM (4.70-6.10); WHITE BLOOD CELL COUNT 8.3 /CUMM (4.8-10.8)
--- NOTE | 2018-03-13 10:13 | PN- Housestaff ---
Subjective Follow-up For: cbc,BEP Subjective: Patient seen and examined at bedside. He was complaining of nause, and feel like vommiting. He was also complaining of abdominla pain. He denies fever ,chills, chest pain, palpitaion, Burning micturation. Review of Systems Constitutional: Reports: see HPI. Objective Last 24 Hrs of Vital Signs/I&O Vital Signs Date Time Temp Pulse Resp B/P B/P Pulse O2 O2 Flow FiO2 Mean Ox Delivery Rate 03/13 0703 98.4 72 18 100/70 96 03/13 0400 98.7 84 18 98/70 96 Room Air 03/12 2104 98.3 64 18 94/58 98 Room Air 03/12 2047 98.3 Intake & Output 03/13 1600 03/13 0800 03/13 0000 Intake Total 1096.0 887.0 Output Total 500 950 400 Balance 596.0 -63.0 -400 Intake, IV 50 Intake, Lipid 100.0 75.0 Intake, Oral 300 240 Intake, 696 522 TPN/PPN Number 1 Bowel Movements Output, Urine 500 950 400 Patient 194 lb Weight Physical Exam General Appearance: Alert, Oriented X3, Cooperative, Mild Distress Cardiovascular: Normal S1, Normal S2 Lungs: Clear to Auscultation, Normal Air Movement Abdomen: Normal Bowel Sounds, No Hepatospenomegaly, mild tederness Extremities: No Clubbing, No Cyanosis, No Edema, Normal Pulses Assessment/Plan Assessment: 52yo man with PMH of diverticulitis, kidney stones s/p lithotripsy, gallstones s /p cholecystectomy, s/p Pippa procedure w/ temporary colostomy followed by revision in 2016, s/p hernia repair, reversible ischemia on nuclear stress test status post cardiac cath recently in 2014 presented to to [facility] with nausea and vomitting, later diagnosed with Pancreatitis with complication. At the time of presentation his labs was significant for derrange pancreatic function test. Problems list: Pancreatitis with infected pseudocyst: Pancreatic cyst Nausea vomittingis, Failure to advance diet requiring Parenteral feeding (TPN) Hyponatremia PMH OF diverticulit,hernia repair..... Infected pancreatic pseudocyts: * Patient leukoctosis subsided * He is no more febrile * Will follow up GI furthur recommendation * He is on ceftriaxone * Will follow up GI and and attending furthur recommendation * Patient is still on TPN * Will advance diet if he can tolerate * Con't Thorazine, PPI and Zofran Failure to advance diet requiring Parenteral feeding (TPN): * Will continue TPN * Patient still nauseated and vomitting * will follow up GI for leatha recommendation regarding TPN feeding Hyponatremia: * Patient Na level is 133today * will follow up FC/n.p.o. on TPN/DVT prophylaxis with subcutaneous heparin/is ambulating in hallways Problem List: 1. S/P repair of ventral hernia 2. History of colostomy reversal 3. Pseudocyst of pancreas 4. Acute pancreatitis with infected necrosis 5. Anemia Pain Ratin Pain Location: Abdomin Pain Goal: Remain pain free Pain Plan: Pain management pathway Tomorrow's Labs & Rationales: CBC, BEP
--- NOTE | 2018-03-13 10:57 | PN- Att Addend ---
Attending Addendum Attending Brief Note Patient in bed. Tried some clear tea and got some abdominal discomfort and nausea. Vital signs are stable temp max 100.4 last evening. Due to his white count being 11,000 yesterday and a low-grade temp all the cultures were redrawn. White count today is 8300. No major changes on physical. Continue the hyperalimentation and check with GI regarding to continue the clear liquid so put him back n.p.o. Intake & Output 03/13 1600 03/13 04003/12 04003/11 1600 03/11 040 Intake Total 887.0 2276.2 368.6 1780.0 700.0 Output Total 600 750 810 700 275 350 Balance 287.0 -750 1466.2 -331.4 1505.0 350.0 Intake, IV 50 110 20 60 Intake, Lipid 75.0 102.2 22.9 132.8 58.1 Intake, Oral 240 440 60 120 0 Intake, 522 1624 265.7 1467.2 641.9 TPN/PPN Number 1 1 0 1 Bowel Movements Output, 10 Emesis Output, Urine 600 750 800 700 275 350 Patient 194 lb 197 lb 197 lb Weight Current Medications Sig/Oz Start time Last Medication Dose Route Stop Time Status Admin Acetaminophen 650 MG Q4P PRN 02/18 1630 AC 03/12 PO 1856 Ceftriaxone Sodium 1,000 MG DAILY@1700 03/13 1700 AC IV Chlorpromazine 25 MG Q6P PRN 02/24 1845 AC 03/11 PO 1721 Fat Emulsion 250 ML Q20H 03/12 1900 AC 03/12 Intravenous IV 03/13 1459 2032 Fat Emulsion 250 ML Q20H 03/12 1130 DC Intravenous IV 03/13 0729 Fat Emulsion 250 ML Q20H 03/12 1130 DC Intravenous IV 03/13 0729 Fat Emulsion 146 ML Q20H 03/11 1900 DC 03/11 Intravenous IV 03/12 1459 1957 Gabapentin 300 MG Q8 02/18 1400 AC 03/13 PO 0550 Heparin Sodium 5,000 UNIT Q8 02/04 0600 AC 03/13 (Porcine) SC 0550 Hydromorphone HCl 2 MG Q3P PRN 03/09 0230 AC 03/13 IV 0818 Nicotine 7 MG DAILY PRN 02/27 1359 AC 03/07 TOP 0835 Omeprazole 40 MG DAILY 02/07 0700 03/13 PO 0549 Ondansetron HCl 4 MG Q6P PRN 02/04 0245 03/13 IV 1044 Oxycodone HCl 10 MG Q4P PRN 02/23 1100 03/13 PO 0550 Patient Medication 1 ED ONE ONE 03/12 1115 DC 03/12 Teaching ED 03/12 1116 1210 Total Parenteral 1 UNIT 03/12 190 AC 03/12 Nutrition IV 03/13 185 203 Total Parenteral 1 UNIT 03/11 190 AR 03/11 Nutrition IV 03/12 1459 1957 Trimethobenzamide HCl 200 MG ONCE ONE 03/13 0500 DC 03/13 IM 03/13 0501 0459 Laboratory Tests 03/13/18 0550: Anion Gap 6, Estimated GFR > 60, BUN/Creatinine Ratio 30.0 H, Calcium 7.9 L, Phosphorus 4.2, Magnesium 1.8, Triglycerides 63, CBC w Diff NO MAN DIFF REQ, RBC 2.99 L, MCV 86.2, MCH 29.4, MCHC 34.1, RDW 15.1 H, MPV 8.8, Gran % 84.1 H, Lymphocytes % 7.7 L, Monocytes % 7.8, Eosinophils % 0.1, Basophils % 0.3, Absolute Granulocytes 7.0 H, Absolute Lymphocytes 0.6 L, Absolute Monocytes 0.6, Absolute Eosinophils 0, Absolute Basophils 0 03/12/18 180: Anion Gap 8, Estimated GFR > 60, BUN/Creatinine Ratio 30.0 H, Lactic Acid 1.0, CBC w Diff NO MAN DIFF REQ, RBC 3.20 L, MCV 86.7, MCH 29.3, MCHC 33.8, RDW 14.8 H, MPV 8.4, Gran % 82.4 H, Lymphocytes % 10.3 L, Monocytes % 6.5, Eosinophils % 0.4, Basophils % 0.4, Absolute Granulocytes 9.1 H, Absolute Lymphocytes 1.1 L, Absolute Monocytes 0.7 H, Absolute Eosinophils 0, Absolute Basophils 0 03/12/18 0535: Anion Gap 6, Estimated GFR > 60, BUN/Creatinine Ratio 25.7 H, Glucose 83, Calcium 7.8 L, Phosphorus 4.4, Magnesium 1.7, Total Bilirubin 0.6, AST 41, ALT 67, Alkaline Phosphatase 148 H, Albumin 2.6 L, Prealbumin 5.7 L, Triglycerides 48, CBC w Diff NO MAN DIFF REQ, RBC 2.96 L, MCV 86.7, MCH 29.3, MCHC 33.8, RDW 14.7 H, MPV 8.4, Gran % 83.5 H, Lymphocytes % 7.9 L, Monocytes % 8.2, Eosinophils % 0, Basophils % 0.4, Absolute Granulocytes 8.1 H, Absolute Lymphocytes 0.8 L, Absolute Monocytes 0.8 H, Absolute Eosinophils 0, Absolute Basophils 0 03/11/18 1245: C-Reactive Prot, Quant 5.9 H 03/11/18 0515: Anion Gap 6, Estimated GFR > 60, BUN/Creatinine Ratio 30.0 H, CBC w Diff NO MAN DIFF REQ, RBC 3.01 L, MCV 87.0, MCH 29.3, MCHC 33.6, RDW 14.7 H, MPV 8.4, Gran % 82.4 H, Lymphocytes % 10.0 L, Monocytes % 7.3, Eosinophils % 0, Basophils % 0.3, Absolute Granulocytes 7.2 H, Absolute Lymphocytes 0.9 L, Absolute Monocytes 0.6, Absolute Eosinophils 0, Absolute Basophils 0 Microbiology 03/13 15 URINE ROUT: Urine Culture - RECD 03/12 2045 BLOOD: Blood Culture - RECD 03/12 2035 BLOOD: Blood Culture - RECD 03/12 2013 LOWER RESP: Respiratory Culture - COLB 03/12 2013 LOWER RESP: Gram Stain - COLB Microbiology 03/13 001 URINE ROUT: Urine Culture - RECD 03/12 2045 BLOOD: Blood Culture - RECD 03/12 2035 BLOOD: Blood Culture - RECD 03/12 2013 LOWER RESP: Respiratory Culture - COLB 03/12 2013 LOWER RESP: Gram Stain - COLB Vital Signs Date Time Temp Pulse Resp B/P B/P Pulse O2 O2 Flow FiO2 Mean Ox Delivery Rate 03/13 0703 98.4 72 18 100/70 96 03/13 0400 98.7 84 18 98/70 96 Room Air 03/12 2104 98.3 64 18 94/58 98 Room Air 03/127 98.3 03/12 1856 100.4 03/12 1408 98.9 78 18 114/71 100
--- NOTE | 2018-03-13 17:07 | PN- Gastroenterology ---
Assessment/Plan GI Assessment/Recommendations: Acute, smoldering pancreatitis, with evolving necrosis, and several fluid collections, one of which was infected. On TPN, with clear liquids introduced. Brief low-grade fever and leukocytosis yesterday, both resolved. The patient was placed back on ceftriaxone after a very brief hiatus. No clinical evidence of residual choledocholithiasis. Imaging reviewed by Dr. Nicole at [place]. His impression is of extensive necrosis, walled off with encapsulation in most places, which would benefit from endoscopic drainage/staged necrosectomy for the peripancreatic collection, and percutaneous drainage for the right subhepatic collection. Recommendations: * Continue antibiotics * Please begin solid low fat diet. If intolerant, will need to consider nasogastric or nasojejunal feeding. The goal is to taper off of TPN. Enteral nutrition will help prevent infected necrosis/recurrence of infected fluid collection. * Please arrange for transfer to [facility] to take place over the weekend, to the Hospitalist service. One should state that Dr. Nicole accepted the patient's on behalf of the ERCP surface. The [place] hospitalist should be informed to call Dr. Nicole over the weekend. Please contact me on Saturday with any questions regarding the above. Subjective Subjective: Persistent mild pain. Believes it was worse with ingestion of liquids. Mild nausea. Objective Vital Signs and I&Os Vital Signs Date Time Temp Pulse Resp B/P B/P Pulse O2 O2 Flow FiO2 Mean Ox Delivery Rate 03/13 0703 98.4 72 18 100/70 96 03/13 0400 98.7 84 18 98/70 96 Room Air 03/12 2104 98.3 64 18 94/58 98 Room Air 03/12 2047 98.3 03/12 1856 100.4 Intake & Output 03/13 1600 03/13 0400 03/12 1600 03/12 0400 03/11 1600 03/11 0400 Intake Total 1983.0 2276.2 368.6 1780.0 700.0 Output Total 1100 750 810 700 275 350 Balance 883.0 -750 1466.2 -331.4 1505.0 350.0 Intake, IV 50 110 20 60 Intake, Lipid 175.0 102.2 22.9 132.8 58.1 Intake, Oral 540 440 60 120 0 Intake, 1218 1624 265.7 1467.2 641.9 TPN/PPN Number 1 1 0 1 Bowel Movements Output, 10 Emesis Output, Urine 1100 750 800 700 275 350 Patient 194 lb 197 lb 197 lb Weight Physical Exam: Abdomen mildly diffusely tender. Current Medications: Current Medications Sig/Oz Start time Last Medication Dose Route Stop Time Status Admin Acetaminophen 650 MG Q4P PRN 02/18 1630 AC 03/12 PO 1856 Ceftriaxone Sodium 1,000 MG DAILY@1700 03/13 1700 AC 03/13 IV 1642 Chlorpromazine 25 MG Q6P PRN 02/24 1845 AC 03/13 PO 1149 Fat Emulsion 250 ML Q20H 03/13 1900 AC Intravenous IV 03/14 1459 Fat Emulsion 250 ML Q20H 03/12 1900 DC 03/12 Intravenous IV 03/13 1459 2032 Gabapentin 300 MG Q8 02/18 1400 AC 03/13 PO 1420 Heparin Sodium 5,000 UNIT Q8 02/04 0600 AC 03/13 (Porcine) SC 1421 Hydromorphone HCl 2 MG Q3P PRN 03/09 0230 03/13 IV 1642 Nicotine 7 MG DAILY PRN 02/27 1359 AC 03/07 TOP 0835 Omeprazole 40 MG DAILY AC 02/07 0700 AC 03/13 PO 0549 Ondansetron HCl 4 MG Q6P PRN 02/04 0245 AC 03/13 IV 1044 Oxycodone HCl 10 MG Q4P PRN 02/23 1100 03/13 PO 1351 Total Parenteral 1 UNIT 03/13 190 AC Nutrition IV 03/14 1859 Total Parenteral 1 UNIT 0 03/12 1900 03/12 Nutrition IV 03/13 1859 2033 Trimethobenzamide HCl 200 MG ONCE ONE 03/13 0500 MS 03/13 IM 03/13 0501 0459 Results Pertinent Lab Results: Laboratory Tests 03/13 03/12 0550 1801 Chemistry Sodium (137 - 145 mmol/L) 132 L 130 L Potassium (3.5 - 5.1 mmol/L) 4.7 4.8 Chloride (98 - 107 mmol/L) 98 96 L Carbon Dioxide (22 - 30 mmol/L) 27 26 Anion Gap (5 - 16) 6 8 BUN (9 - 20 mg/dL) 18 18 Creatinine (0.7 - 1.2 mg/dL) 0.6 L 0.6 L Estimated GFR (>60 ml/min) > 60 > 60 BUN/Creatinine Ratio (7 - 25 %) 30.0 H 30.0 H Lactic Acid (0.7 - 2.1 mmol/L) 1.0 Calcium (8.4 - 10.2 mg/dL) 7.9 L Phosphorus (2.5 - 4.5 mg/dL) 4.2 Magnesium (1.6 - 2.3 mg/dL) 1.8 Triglycerides (<150 mg/dL) 63 Hematology CBC w Diff NO MAN DIFF REQ NO MAN DIFF REQ WBC (4.8 - 10.8 /CUMM) 8.3 11.0 H RBC (4.70 - 6.10 /CUMM) 2.99 L 3.20 L Hgb (14.0 - 18.0 G/DL) 8.8 L 9.4 L Hct (42 - 52 %) 25.8 L 27.7 L MCV (80.0 - 94.0 FL) 86.2 86.7 MCH (27.0 - 31.0 PG) 29.4 29.3 MCHC (33.0 - 37.0 G/DL) 34.1 33.8 RDW (11.5 - 14.5 %) 15.1 H 14.8 H Plt Count (130 - 400 /CUMM) 241 267 MPV (7.4 - 10.4 FL) 8.8 8.4 Gran % (42.2 - 75.2 %) 84.1 H 82.4 H Lymphocytes % (20.5 - 51.1 %) 7.7 L 10.3 L Monocytes % (1.7 - 9.3 %) 7.8 6.5 Eosinophils % (0 - 5 %) 0.1 0.4 Basophils % (0.0 - 2.0 %) 0.3 0.4 Absolute Granulocytes (1.4 - 6.5 /CUMM) 7.0 H 9.1 H Absolute Lymphocytes (1.2 - 3.4 /CUMM) 0.6 L 1.1 L Absolute Monocytes (0.10 - 0.60 /CUMM) 0.6 0.7 H Absolute Eosinophils (0.0 - 0.7 /CUMM) 0 0 Absolute Basophils (0.0 - 0.2 /CUMM) 0 0 03/12 03/11 0535 1245 Chemistry Sodium (137 - 145 mmol/L) 131 L Potassium (3.5 - 5.1 mmol/L) 4.7 Chloride (98 - 107 mmol/L) 98 Carbon Dioxide (22 - 30 mmol/L) 27 Anion Gap (5 - 16) 6 BUN (9 - 20 mg/dL) 18 Creatinine (0.7 - 1.2 mg/dL) 0.7 Estimated GFR (>60 ml/min) > 60 BUN/Creatinine Ratio (7 - 25 %) 25.7 H Glucose (65 - 99 mg/dL) 83 Calcium (8.4 - 10.2 mg/dL) 7.8 L Phosphorus (2.5 - 4.5 mg/dL) 4.4 Magnesium (1.6 - 2.3 mg/dL) 1.7 Total Bilirubin (0.2 - 1.3 mg/dL) 0.6 AST (17 - 59 U/L) 41 ALT (21 - 72 U/L) 67 Alkaline Phosphatase (< 127 U/L) 148 H C-Reactive Prot, Quant (<1.0 mg/dL) 5.9 H Albumin (3.5 - 5.0 g/dL) 2.6 L Prealbumin (17.6 - 36.0 mg/dL) 5.7 L Triglycerides (<150 mg/dL) 48 Hematology CBC w Diff NO MAN DIFF REQ WBC (4.8 - 10.8 /CUMM) 9.7 RBC (4.70 - 6.10 /CUMM) 2.96 L Hgb (14.0 - 18.0 G/DL) 8.7 L Hct (42 - 52 %) 25.6 L MCV (80.0 - 94.0 FL) 86.7 MCH (27.0 - 31.0 PG) 29.3 MCHC (33.0 - 37.0 G/DL) 33.8 RDW (11.5 - 14.5 %) 14.7 H Plt Count (130 - 400 /CUMM) 249 MPV (7.4 - 10.4 FL) 8.4 Gran % (42.2 - 75.2 %) 83.5 H Lymphocytes % (20.5 - 51.1 %) 7.9 L Monocytes % (1.7 - 9.3 %) 8.2 Eosinophils % (0 - 5 %) 0 Basophils % (0.0 - 2.0 %) 0.4 Absolute Granulocytes (1.4 - 6.5 /CUMM) 8.1 H Absolute Lymphocytes (1.2 - 3.4 /CUMM) 0.8 L Absolute Monocytes (0.10 - 0.60 /CUMM) 0.8 H Absolute Eosinophils (0.0 - 0.7 /CUMM) 0 Absolute Basophils (0.0 - 0.2 /CUMM) 0 09/18 0515 Chemistry Sodium (137 - 145 mmol/L) 133 L Potassium (3.5 - 5.1 mmol/L) 4.1 Chloride (98 - 107 mmol/L) 104 Carbon Dioxide (22 - 30 mmol/L) 24 Anion Gap (5 - 16) 6 BUN (9 - 20 mg/dL) 18 Creatinine (0.7 - 1.2 mg/dL) 0.6 L Estimated GFR (>60 ml/min) > 60 BUN/Creatinine Ratio (7 - 25 %) 30.0 H Hematology CBC w Diff NO MAN DIFF REQ WBC (4.8 - 10.8 /CUMM) 8.8 RBC (4.70 - 6.10 /CUMM) 3.01 L Hgb (14.0 - 18.0 G/DL) 8.8 L Hct (42 - 52 %) 26.2 L MCV (80.0 - 94.0 FL) 87.0 MCH (27.0 - 31.0 PG) 29.3 MCHC (33.0 - 37.0 G/DL) 33.6 RDW (11.5 - 14.5 %) 14.7 H Plt Count (130 - 400 /CUMM) 242 MPV (7.4 - 10.4 FL) 8.4 Gran % (42.2 - 75.2 %) 82.4 H Lymphocytes % (20.5 - 51.1 %) 10.0 L Monocytes % (1.7 - 9.3 %) 7.3 Eosinophils % (0 - 5 %) 0 Basophils % (0.0 - 2.0 %) 0.3 Absolute Granulocytes (1.4 - 6.5 /CUMM) 7.2 H Absolute Lymphocytes (1.2 - 3.4 /CUMM) 0.9 L Absolute Monocytes (0.10 - 0.60 /CUMM) 0.6 Absolute Eosinophils (0.0 - 0.7 /CUMM) 0 Absolute Basophils (0.0 - 0.2 /CUMM) 0
[2018-03-13 21:50] VITALS: BP 114/78
--- NOTE | 2018-03-14 07:34 | PN- Housestaff ---
Subjective Follow-up For: Pancreatitis with infected pseudocyst Hyponatremia Failure of advancing oral diet Subjective: Patient seen and examined at bedside. He is complaining of abdominal pain. He is complaining of nausea and vomiting. He started taking some food today. He is feeling fullness in his abdomen. He denies fever, chills, chest pain, diarrhea, constipation, burning micturition. Review of Systems Constitutional: Reports: see HPI. Objective Last 24 Hrs of Vital Signs/I&O Vital Signs Date Time Temp Pulse Resp B/P B/P Pulse O2 O2 Flow FiO2 Mean Ox Delivery Rate 03/14 1400 97.8 88 20 118/80 97 Room Air 03/14 1200 97.8 80 20 124/60 96 Room Air 03/14 0743 98.3 79 20 118/64 97 03/13 2150 98.7 88 22 114/78 99 Room Air Intake & Output 03/14 1600 03/14 0800 03/14 0000 Intake Total 1316.5 856.0 Output Total 750 425 Balance 1316.5 106.0 -425 Intake, Lipid 87.5 100.0 Intake, Oral 620 60 Intake, 609 696 TPN/PPN Number 1 0 Bowel Movements Output, Urine 750 425 Patient 188 lb Weight Physical Exam General Appearance: Alert, Oriented X3, Cooperative, No Acute Distress Cardiovascular: Normal S1, Normal S2 Lungs: Clear to Auscultation, Normal Air Movement Abdomen: Normal Bowel Sounds, Soft, No Tenderness, No Hepatospenomegaly, No Masses Extremities: No Clubbing, No Cyanosis, No Edema, Normal Pulses Assessment/Plan Assessment: 52yo man with PMH of diverticulitis, kidney stones s/p lithotripsy, gallstones s /p cholecystectomy, s/p Pippa procedure w/ temporary colostomy followed by revision in 2016, s/p hernia repair, reversible ischemia on nuclear stress test status post cardiac cath recently in 2014 presented to to [facility] with nausea and vomitting, later diagnosed with Pancreatitis with complication. At the time of presentation his labs was significant for derrange pancreatic function test. Problems list: Pancreatitis with infected pseudocyst: Pancreatic cyst Nausea vomittingis, Failure to advance diet requiring Parenteral feeding (TPN) Hyponatremia PMH OF diverticulit,hernia repair..... Infected pancreatic pseudocyts: * Patient having infected pancreatic pseudocyst * We are planning to transfer him on Saturday to [place] for ERCP * His leukocytosis subsided * He is complaining of abdominal fullness * Will transfer to [place] for intervention Failure to advance diet requiring Parenteral feeding (TPN): * Will continue TPN * Patient still nauseated and vomitting * Will give him a trial to advance diet if he can report will continue oral diet with TPN slowly gradually Hyponatremia: * Patient Na level is 133today * will follow up FC/n.p.o. on TPN/DVT prophylaxis with subcutaneous heparin/is ambulating in hallways Problem List: 1. Cholecystectomy 2. Abdominal pain 3. Full code status 4. Nausea & vomiting 5. Pancreatitis 6. History of colostomy reversal 7. S/P repair of ventral hernia 8. History of cholecystectomy Pain Ratin Pain Location: Abdomen Pain Goal: Remain pain free Pain Plan: Pain management pathway Tomorrow's Labs & Rationales: LFTs, albumin
[2018-03-14 07:43] VITALS: BP 118/64
[2018-03-14 08:12] LABS: ABSOLUTE BASOPHIL COUNT 0 /CUMM (0.0-0.2); ABSOLUTE EOSINOPHIL COUNT 0 /CUMM (0.0-0.7); ABSOLUTE GRANULOCYTE CT 7.8 /CUMM (1.4-6.5); ABSOLUTE LYMPH COUNT 0.8 /CUMM (1.2-3.4); ABSOLUTE MONOCYTE COUNT 0.7 /CUMM (0.10-0.60); BASOPHIL % 0.3 % (0.0-2.0); EOSINOPHIL % 0 % (0-5); GRANULOCYTE % 83.5 % (42.2-75.2); HEMATOCRIT 25.9 % (42-52); MEAN CORPUSCULAR HGB 29.4 PG (27.0-31.0); MEAN CORPUSCULAR HGB CONC 33.8 G/DL (33.0-37.0); MEAN CORPUSCULAR VOLUME 87.1 FL (80.0-94.0); MEAN PLATELET VOLUME 8.4 FL (7.4-10.4); PLATELET COUNT 239 /CUMM (130-400); RBC DISTRIBUTION WIDTH 15.1 % (11.5-14.5); RED BLOOD CELL CT 2.98 /CUMM (4.70-6.10); WHITE BLOOD CELL COUNT 9.3 /CUMM (4.8-10.8)
--- NOTE | 2018-03-14 11:28 | PN- Att Addend ---
Attending Addendum Attending Brief Note No new issues. Vital signs stable no fever no new changes on physical exam. Appreciate GIs imput and recommendations, will start disposition plans to go to [facility] over the weekend to continu valuation to why is taking so long for the patient to get better. WBC today 9.3. Intake & Output 03/14 1600 03/14 0400 03/13 1600 03/13 0400 03/12 1600 03/12 0400 Intake Total 856.0 1983.0 2276.2 368.6 Output Total 973 781 9798 750 810 700 Balance 356.0 -675 883.0 -750 1466.2 -331.4 Intake, IV 50 110 20 Intake, Lipid 100.0 175.0 102.2 22.9 Intake, Oral 60 540 440 60 Intake, 696 1218 1624 265.7 TPN/PPN Number 0 1 1 0 Bowel Movements Output, 10 Emesis Output, Urine 508 352 4327 750 800 700 Patient 188 lb 194 lb 197 lb Weight Current Medications Sig/Oz Start time Last Medication Dose Route Stop Time Status Admin Acetaminophen 650 MG Q4P PRN 02/18 1630 AC 03/12 PO 1856 Ceftriaxone Sodium 1,000 MG DAILY@1700 03/13 1700 AC 03/13 IV 1642 Chlorpromazine 25 MG Q6P PRN 02/24 1845 AC 03/14 PO 0631 Fat Emulsion 250 ML Q20H 03/13 1900 AC 03/13 Intravenous IV 03/14 1459 2030 Fat Emulsion 250 ML Q20H 03/12 1900 DC 03/12 Intravenous IV 03/13 1459 2032 Gabapentin 300 MG Q8 02/18 1400 AC 03/14 PO 0611 Heparin Sodium 5,000 UNIT Q8 02/04 0600 AC 03/14 (Porcine) SC 0612 Hydromorphone HCl 2 MG Q3P PRN 03/09 0230 AC 03/14 IV 0941 Nicotine 7 MG DAILY PRN 02/27 1359 AC 03/07 TOP 0835 Omeprazole 40 MG DAILY AC 02/07 0700 AC 03/14 PO 0611 Ondansetron HCl 4 MG Q6P PRN 02/04 0245 AC 03/13 IV 2031 Oxycodone HCl 10 MG Q4P PRN 02/23 1100 AC 03/13 PO 2321 Total Parenteral 1 UNIT 1900 03/13 1900 AC 03/13 Nutrition IV 03/14 1459 2030 Total Parenteral 1 UNIT 03/12 190 DC 03/12 Nutrition IV 03/13 [id number] Laboratory Tests 03/14/18 0628: Anion Gap 7, Estimated GFR > 60, BUN/Creatinine Ratio 24.3, CBC w Diff NO MAN DIFF REQ, RBC 2.98 L, MCV 87.1, MCH 29.4, MCHC 33.8, RDW 15.1 H, MPV 8.4, Gran % 83.5 H, Lymphocytes % 8.5 L, Monocytes % 7.7, Eosinophils % 0, Basophils % 0.3, Absolute Granulocytes 7.8 H, Absolute Lymphocytes 0.8 L, Absolute Monocytes 0.7 H, Absolute Eosinophils 0, Absolute Basophils 0 03/13/18 0550: Anion Gap 6, Estimated GFR > 60, BUN/Creatinine Ratio 30.0 H, Calcium 7.9 L, Phosphorus 4.2, Magnesium 1.8, Triglycerides 63, CBC w Diff NO MAN DIFF REQ, RBC 2.99 L, MCV 86.2, MCH 29.4, MCHC 34.1, RDW 15.1 H, MPV 8.8, Gran % 84.1 H, Lymphocytes % 7.7 L, Monocytes % 7.8, Eosinophils % 0.1, Basophils % 0.3, Absolute Granulocytes 7.0 H, Absolute Lymphocytes 0.6 L, Absolute Monocytes 0.6, Absolute Eosinophils 0, Absolute Basophils 0 03/12/181800: Anion Gap 8, Estimated GFR > 60, BUN/Creatinine Ratio 30.0 H, Lactic Acid 1.0, CBC w Diff NO MAN DIFF REQ, RBC 3.20 L, MCV 86.7, MCH 29.3, MCHC 33.8, RDW 14.8 H, MPV 8.4, Gran % 82.4 H, Lymphocytes % 10.3 L, Monocytes % 6.5, Eosinophils % 0.4, Basophils % 0.4, Absolute Granulocytes 9.1 H, Absolute Lymphocytes 1.1 L, Absolute Monocytes 0.7 H, Absolute Eosinophils 0, Absolute Basophils 0 03/12/18 0535: Anion Gap 6, Estimated GFR > 60, BUN/Creatinine Ratio 25.7 H, Glucose 83, Calcium 7.8 L, Phosphorus 4.4, Magnesium 1.7, Total Bilirubin 0.6, AST 41, ALT 67, Alkaline Phosphatase 148 H, Albumin 2.6 L, Prealbumin 5.7 L, Triglycerides 48, CBC w Diff NO MAN DIFF REQ, RBC 2.96 L, MCV 86.7, MCH 29.3, MCHC 33.8, RDW 14.7 H, MPV 8.4, Gran % 83.5 H, Lymphocytes % 7.9 L, Monocytes % 8.2, Eosinophils % 0, Basophils % 0.4, Absolute Granulocytes 8.1 H, Absolute Lymphocytes 0.8 L, Absolute Monocytes 0.8 H, Absolute Eosinophils 0, Absolute Basophils 0 03/11/18 1245: C-Reactive Prot, Quant 5.9 H Microbiology 03/13 15 URINE ROUT: Urine Culture - RES 03/12 2045 BLOOD: Blood Culture - RES 03/12 2035 BLOOD: Blood Culture - RES 03/12 2013 LOWER RESP: Respiratory Culture - CAN Cancelled: SPECIMEN NOT RECEIVED IN LABORATORY 03/12 2013 LOWER RESP: Gram Stain - CAN Cancelled: SPECIMEN NOT RECEIVED IN LABORATORY Microbiology 03/13 15 URINE ROUT: Urine Culture - RES 03/12 2045 BLOOD: Blood Culture - RES 03/12 2035 BLOOD: Blood Culture - RES 03/12 2013 LOWER RESP: Respiratory Culture - CAN Cancelled: SPECIMEN NOT RECEIVED IN LABORATORY 03/12 2013 LOWER RESP: Gram Stain - CAN Cancelled: SPECIMEN NOT RECEIVED IN LABORATORY Vital Signs Date Time Temp Pulse Resp B/P B/P Pulse O2 O2 Flow FiO2 Mean Ox Delivery Rate 03/14 0743 98.3 79 20 118/64 97 03/13 2150 98.7 88 22 114/78 99 Room Air
[2018-03-14 12:00] VITALS: BP 124/60
[2018-03-14 14:00] VITALS: BP 118/80
[2018-03-14] MEDS ORDERED: CEFTRIAXONE1 G1 IV (16:05)
[2018-03-14] MEDS ORDERED: CHLORPROMAZINE25 M2 PO (16:05)
[2018-03-14] MEDS ORDERED: OXYCODONE HCL10 M2 PO (16:06)
[2018-03-14] MEDS ORDERED: OMEPRAZOLE20 M2 PO (16:15)
--- NOTE | 2018-03-14 17:25 | Discharge Summary ---
Visit Information Visit Dates Admission Date: 02/04/18 Discharge Date: 03/15/2018 Hospital Course Course Attending Physician: Rosalio Bar MD Primary Care Physician: Yosvany QUINTERO,Rosalio Hospital Course: This is a 52yo M w/ PMH of diverticulitis, kidney stones s/p lithotripsy, gallstones s/p cholecystectomy, s/p Ipppa procedure w/ temporary colostomy followed by revision in 2016, s/p hernia repair, reversible ischemia on nuclear stress test status post cardiac cath recently in 2014 presented with CC w/ N/V/D /severe intermittent abd pain on 02/03/2018. He endorsed loose BM, w/ intermittent non-bloody vomiting and upon work up the patient found to have acute pancreatitis. He had 38 day hospital course complicated by smoldering pancreatitis with infected necrosis (cx showing enterobacter) and pseudocyst. He failed enteral feeding trials and was placed on TPN. --- Acute smoldering pancreatitis with evolving necrosis Patient was admitted for acute pancreatitis and initially started on bowel rest, IV pain medications, IV fluids. Whenever diet was attempted to advance, patient could not tolerate and had significant 10 out of 10 abdominal pain associated with the nausea and vomiting. Initially decision was made to transfer the patient to [place] for endoscopic ultrasound. However patient adamantly refused. patient continued to have abdominal pain, nausea, vomiting on subsequent days and started developing fevers. Surgery was consulted and repeated images showed pockets of infected pancreatic necrosis. Patient underwent IR drainage of pancreatic pseudocyst with cultures positive for Enterobacter. He was started on ceftriaxone 1GM daily February 19, 2018, still getting antibiotics. He was then started on parenteral feedings. He was getting TPN regularly - so far day 19. He was started on regular low-fat diet, however he could not tolerate. So he was continued on TPN with plan to switch to nasogastric or nasojejunal feeds. He will be transferred to [place] for acute smoldering pancreatitis with evolving necrosis and severe fluid collections, one of which was infected. Plan is patient may benefit from endoscopic drainage And percutaneous drainage for right subhepatic collection Further recommendations * Continue TPN--> We switched it to cyclic TPN and the goal is to get him to slowly wean off it. * Slow transition from TPN /nasogastric TO oral feeds Failure to advance diet requiring Parenteral feeding (TPN): On TPN; changed him to cyclic feeds Adjust TPN as per electrolytes If oral feeding does not work proceed with NG tube trial in future Transaminitis: improved Hyponatremia: Continue with TPN with electrolytes tailored to address his hyponatremia proving. FC n.p.o. on TPN DVT prophylaxis with subcutaneous heparin Labs at the time of discharge WBC 9.3, hemoglobin 8.8, hematocrit 25.9, platelet count 239 Sodium 132, potassium 4.5, BUN 17 and creatinine 0.6 AST 40 and ALT 60, alkaline phosphatase 148 BUN 2.6, pre-albumin 5.7 Allergies: Coded Allergies: meperidine (From DEMEROL) ("I GOT VERY MEAN" 12/08/15) Significant Procedures: PROCEDURE: ULTRASOUND-GUIDED ASPIRATION OF A PANCREATIC PSEUDOCYST CLINICAL INFORMATION: 52-year-old patient presenting with smoldering pancreatitis and persistent fevers. Diagnostic aspiration of the subhepatic pseudocysts requested to exclude secondary infection. [employer] APPRENTICE: Musa Irizarry M.D. COMPARISON: CT of the abdomen dated 02/19/2018 DESCRIPTION: The procedure was requested by the gastroenterology service and Dr. Roach. Informed consent was obtained from the patient prior to the procedure. During this process, the procedure and potential alternatives was explained, along with the intended outcome and benefits. The risks of the procedure, as well as the risk of not doing the procedure, were discussed. The patient was given the opportunity to ask questions regarding the procedure and appeared competent to make medical decisions. A signed consent form which documents this discussion was placed in the medical record. The patient's recent CT scan was reviewed. A sonographic survey was performed for identification of the subhepatic pseudocyst collections. The right upper quadrant was sterilely prepped and draped. Following administration of superficial and deep anesthesia using 1% Xylocaine and 0.5% bupivacaine, an 18-gauge Sena-Jt needle was advanced into the pseudocyst under direct sonographic visualization taking care to avoid the liver and right colon. Approximately 18 mL of light olivo, cloudy fluid was aspirated. Specimens were sent to the laboratory for culture and sensitivity, cell count with differentiation, and amylase as requested. The needle was removed and a sterile dressing was applied. The patient tolerated the procedure well. There was no evidence of complications. IMPRESSION: Diagnostic aspiration performed of the patient's right upper quadrant, subhepatic pseudocysts under sonographic guidance without evidence of complications. Pertinent Lab Results: abd us 02/03/2018 IMPRESSION: 1. Edematous pancreas with peripancreatic fluid, consistent with acute pancreatitis. 2. The pancreatic head and portions of the tail are not visualized. 3. Intra and extrahepatic ductal dilatation is seen. Common bile duct measuring up to 1 cm. Findings may at least in part be related to the patient's postcholecystectomy state with similar appearance seen on older CT scan from 07/11/2017, at which time, no evidence of acute pancreatitis was seen. In the visualized portions of the common bile duct on today's exam, no filling defect is seen. Distal most CBD is, however, not visualized. Close clinical correlation is requested. 4. Status post cholecystectomy. ct abd 02/04/2018 IMPRESSION: Prominent inflammatory changes surrounding the pancreas with edematous appearance of the pancreas. This is suggestive of acute pancreatitis. Stable ectatic appearance of the left common iliac artery. - 02/05/2018 abd MRI 1. Acute interstitial pancreatitis is seen with pancreatic parenchymal edema and peripancreatic soft tissue edema and stranding. Associated circumferential wall thickening in the duodenum and proximal jejunum is seen, consistent with sympathetic changes to the pancreatic inflammation. 2. No evidence of variant ductal anatomy. No definite pancreatic head mass seen on noncontrast study. 3. Mild intrahepatic ductal dilatation and moderate extrahepatic ductal dilatation to 1 cm is seen. There is smooth tapering of the common bile duct to 0.4 cm in the preampullary region with no evidence of choledocholithiasis. Findings may be related to the patient's postcholecystectomy state. 4. A few scattered bilateral renal cysts are incidentally seen. - CXR- No acute cardiopulmonary process.- 02/05 CT ABD 02/10 Interval increase in pancreatic edema with increasing abdominal fluid likely patient intake representative of progressing pancreatitis. Right greater than left bilateral pleural effusions with associated airspace disease. -- CXR- 02/13- Bibasilar subsegmental atelectasis with small right more than left pleural effusions. No dense consolidation. CXR 02/14-= Bilateral pleural effusions with bibasilar airspace opacity, consolidation atelectasis. These basilar densities are greater at the right lung base than the left. AXR- 02/15/IMPRESSION: No evidence of free air or air-fluid levels to suggest any perforation or obstruction. No organomegaly. CT ABD 02/16 1. Similar appearance of the pancreas with diffuse edema without definite areas of necrosis. There are acute peripancreatic fluid collections seen, possibly decreasing since the prior study as detailed above. There is slightly increased organization with thin enhancing mascorro. 2. Right colonic wall thickening and submucosal fat proliferation, new since 11/22/2017. Whether this is representing acute colitis versus reaction to the closely adjacent fluid collections and pancreatitis is unclear. Clinical correlation requested. ---- CXR 02/18 -Stable bibasilar airspace disease and small pleural effusions. ABD CT- 02/19 Unchanged inflammatory process involving the pancreas with peripancreatic fluid collections with one more organized discrete collection on the right abdomen just beneath the liver. This is the collection for which a request has been made to aspirate tomorrow. The associated right colonic wall thickening and inflammatory changes remain present as well. CT ABD 02/26 1. There is increased peripancreatic fluid and soft tissue density compared to the prior study. The pancreatic parenchyma has lower attenuation compared to prior imaging, which may be consistent with evolving necrotic changes. 2. The discrete fluid collection along the ventral head of the pancreas is no longer visualized. There is extensive loculated fluid in the right abdomen extending inferiorly and posterior to the right psoas muscle, not significantly changed compared to the most recent prior study. 3. Flow is demonstrated in the splenic and portal veins. ----- CT ABD 03/05 1. Worsening pancreatic and peripancreatic inflammation. Persistent patchy areas of possible necrosis in the pancreas. No significant change in fluid collections along the inferior aspect of the pancreas and extending inferior to the right lobe of the liver. 2. No significant change in intrahepatic and extrahepatic biliary duct dilatation. 3. Slight improvement in right lower lobe atelectasis or consolidation and small right pleural effusion. -- CXR 03/12 Nonspecific and nonobstructive bowel gas pattern. No evidence of free air. - Disposition Summary Disposition Principal Diagnosis: Acute smoldering pancreatitis with necrosis Additional Diagnosis: Failed to advance diet requiring TPN Transaminitis Hyponatremia Pseudocyst cultures positive for Enterobacter Discharge Disposition: other general hospital Discharge Instructions General Discharge Information Code Status: Full Code Patient's Diet: As tolerated Patient's Activity: As tolerated Follow-Up Instructions/Appts: 1. please follow up with pcp in one week 2. please follow up with Dr. Truong in 2 weeks Continue antibiotics based on gastroenterology recommendations. Continue TPN versus nasogastric/nasojejunal feeds based on patient's clinical status. Medications at Discharge Discharge Medications: Stop taking the following medications: Doxycycline Hyclate (Doxycycline Hyclate) 100 MG CAPSULE ORAL TWICE DAILY Qty = 12 Gabapentin (Gabapentin) 100 MG CAPSULE ORAL EVERY 8 HOURS Qty = 36 Polyethylene Glycol 3350 (Miralax) 17 GRAM/DOSE POWDER ORAL DAILY Qty = 30 Start taking the following new medications: Omeprazole (Omeprazole) 20 MG CAPSULE.DR 40 Milligram ORAL DAILY BEFORE BREAKFAST Qty = 30 No Refills Nicotine (Nicotine Patch) 7 MG/24 HOUR PATCH.TD24 7 Milligram On the skin DAILY Qty = 30 No Refills Gabapentin (Gabapentin) 300 MG CAPSULE 300 Milligram ORAL EVERY 8 HOURS Qty = 60 No Refills Ceftriaxone Sodium (Ceftriaxone) 1 GRAM VIAL 1,000 Milligram IV DAILY Qty = 7 No Refills Chlorpromazine HCl (Chlorpromazine HCl) 25 MG TABLET 25 Milligram ORAL EVERY SIX HOURS NEEDED as needed for hiccups Qty = 30 No Refills Oxycodone HCl (Oxycodone HCl) 10 MG TABLET 1 Tablet ORAL EVERY 4 HOURS NEEDED Qty = 20 No Refills Copies To: Yosvany QUINTERO,Rosalio
[2018-03-14 20:51] VITALS: BP 96/64
[2018-03-15 04:30] VITALS: BP 100/60
[2018-03-15 06:33] VITALS: BP 106/70
--- NOTE | 2018-03-15 06:47 | PN- Housestaff ---
Subjective Follow-up For: Infected pancreatitis Hyponatremia Hypokalemia Subjective: Patient seen and examined at bedside. He was complaining of new onset dull pain in his lower abdomen. He was anxious about his situation. He started his oral diet. He feels nauseated but his controled withot Zofran he was asking for his transfer to [facility] he denies fever, chills, chest pain, constipation, burning micturition. Review of Systems Constitutional: Reports: see HPI. Objective Last 24 Hrs of Vital Signs/I&O Vital Signs Date Time Temp Pulse Resp B/P B/P Pulse O2 O2 Flow FiO2 Mean Ox Delivery Rate 03/15 1613 98.6 86 18 131/70 03/15 1422 98.6 86 18 131/70 99 03/15 1103 98.9 03/15 0633 99.3 74 20 106/70 98 Room Air 03/15 0430 71 100/60 99 Room Air Intake & Output 03/15 1600 03/15 0800 03/15 0000 Intake Total 1296.0 624.0 Output Total 250 700 375 Balance 1046.0 -700 249.0 Intake, IV 20 Intake, Lipid 100.0 45.0 Intake, Oral 500 300 Intake, 696 259 TPN/PPN Number 0 Bowel Movements Output, 0 Emesis Output, Urine 250 700 375 Physical Exam General Appearance: Alert, Oriented X3, Cooperative, Mild Distress Cardiovascular: Normal S1, Normal S2 Lungs: Clear to Auscultation, Normal Air Movement Abdomen: Normal Bowel Sounds, Soft, No Tenderness, No Hepatospenomegaly, No Masses Extremities: No Clubbing, No Cyanosis, No Edema, Normal Pulses, No Tenderness/ Swelling Assessment/Plan Assessment: 52yo man with PMH of diverticulitis, kidney stones s/p lithotripsy, gallstones s /p cholecystectomy, s/p Pippa procedure w/ temporary colostomy followed by revision in 2016, s/p hernia repair, reversible ischemia on nuclear stress test status post cardiac cath recently in 2014 presented to to [facility] with nausea and vomitting, later diagnosed with Pancreatitis with complication. At the time of presentation his labs was significant for derrange pancreatic function test. Problems list: Pancreatitis with infected pseudocyst: Pancreatic cyst Nausea vomittingis, Failure to advance diet requiring Parenteral feeding (TPN) Hyponatremia PMH OF diverticulit,hernia repair..... Infected pancreatic pseudocyts: * Patient having infected pancreatic pseudocyst * We are planning to transfer him on Saturday to [place] for ERCP * His leukocytosis subsided * He is complaining of abdominal fullness * Will transfer to [place] for intervention ERCP Failure to advance diet requiring Parenteral feeding (TPN): * Patient was tolerating diet today * TPN order * Patient still nauseated and no weight * Will give him a trial to advance diet if he can report will continue oral diet with TPN slowly gradually Hyponatremia: * Patient Na level is [id number] * will follow up Transfer to [place]: Patient transferred via ERCP Problem List: 1. History of cholecystectomy 2. S/P repair of ventral hernia 3. History of colostomy reversal 4. Acute pancreatitis with infected necrosis Pain Ratin Pain Location: Lower abdomen Pain Goal: Remain pain free Pain Plan: Pain management pathway Tomorrow's Labs & Rationales: bep
[2018-03-15 14:22] VITALS: BP 131/70
[2018-03-15 16:13] VITALS: BP 131/70
--- NOTE | 2018-03-15 16:53 | PN- Att Addend ---
Attending Addendum Attending Brief Note Arrangements started for the patient to go to [facility] for further evaluation and see if there needs any other kind of treatments. Temp max 100.3 rest of the vital signs are stable. No changes in physical examination. BNP and liver function tests are stable. No WBCs today. See the discharge summary and CMR.. Intake & Output 03/15 1600 03/15 0400 03/14 1600 03/14 0400 03/13 1600 03/13 0400 Intake Total 1296.0 624.0 2172.5 1983.0 Output Total 950 375 533 479 3445 750 Balance 346.0 249.0 1672.5 -675 883.0 -750 Intake, IV 20 50 Intake, Lipid 100.0 45.0 187.5 175.0 Intake, Oral 500 300 680 540 Intake, 463 576 9034 1218 TPN/PPN Number 0 1 1 Bowel Movements Output, 0 Emesis Output, Urine 950 375 785 243 8376 750 Patient 188 lb 194 lb Weight Current Medications Sig/Oz Start time Last Medication Dose Route Stop Time Status Admin Acetaminophen 650 MG Q4P PRN 02/18 1630 AC 03/14 PO 2104 Ceftriaxone Sodium 1,000 MG DAILY@1700 03/13 1700 AC 03/14 IV 1753 Chlorpromazine 25 MG Q6P PRN 02/24 1845 AC 03/15 PO 1414 Fat Emulsion 250 ML Q24H 03/15 1900 AC Intravenous IV 03/16 1459 Fat Emulsion 250 ML Q20H 03/14 1900 DC 03/14 Intravenous IV 03/15 1459 1955 Gabapentin 300 MG Q8 02/18 1400 AC 03/15 PO 1347 Heparin Sodium 5,000 UNIT Q8 02/04 0600 AC 03/15 (Porcine) SC 1347 Hydromorphone HCl 2 MG Q3P PRN 03/09 0230 AC 03/15 IV 1414 Nicotine 7 MG DAILY PRN 02/27 1359 AC 03/07 TOP 0835 Omeprazole 40 MG DAILY AC 02/07 0700 AC 03/15 PO 0646 Ondansetron HCl 4 MG Q6P PRN 02/04 0245 AC 03/15 IV 1346 Oxycodone HCl 10 MG Q4P PRN 02/23 1100 AC 03/14 PO 1955 Total Parenteral 1 UNIT 1900 03/15 1900 AC Nutrition IV 09/23 1859 Total Parenteral 1 UNIT 03/14 AC 03/14 Nutrition IV 03/15 Laboratory Tests 03/15/18 0711: Anion Gap 8, Estimated GFR > 60, BUN/Creatinine Ratio 25.0, Total Bilirubin 0.3, Direct Bilirubin 0.2, AST 44, ALT 71, Alkaline Phosphatase 149 H, Total Protein 6.4, Albumin 2.4 L 03/14/18 0628: Anion Gap 7, Estimated GFR > 60, BUN/Creatinine Ratio 24.3, CBC w Diff NO MAN DIFF REQ, RBC 2.98 L, MCV 87.1, MCH 29.4, MCHC 33.8, RDW 15.1 H, MPV 8.4, Gran % 83.5 H, Lymphocytes % 8.5 L, Monocytes % 7.7, Eosinophils % 0, Basophils % 0.3, Absolute Granulocytes 7.8 H, Absolute Lymphocytes 0.8 L, Absolute Monocytes 0.7 H, Absolute Eosinophils 0, Absolute Basophils 0 03/13/18 0550: Anion Gap 6, Estimated GFR > 60, BUN/Creatinine Ratio 30.0 H, Calcium 7.9 L, Phosphorus 4.2, Magnesium 1.8, Triglycerides 63, CBC w Diff NO MAN DIFF REQ, RBC 2.99 L, MCV 86.2, MCH 29.4, MCHC 34.1, RDW 15.1 H, MPV 8.8, Gran % 84.1 H, Lymphocytes % 7.7 L, Monocytes % 7.8, Eosinophils % 0.1, Basophils % 0.3, Absolute Granulocytes 7.0 H, Absolute Lymphocytes 0.6 L, Absolute Monocytes 0.6, Absolute Eosinophils 0, Absolute Basophils 0 03/12/18 180: Anion Gap 8, Estimated GFR > 60, BUN/Creatinine Ratio 30.0 H, Lactic Acid 1.0, CBC w Diff NO MAN DIFF REQ, RBC 3.20 L, MCV 86.7, MCH 29.3, MCHC 33.8, RDW 14.8 H, MPV 8.4, Gran % 82.4 H, Lymphocytes % 10.3 L, Monocytes % 6.5, Eosinophils % 0.4, Basophils % 0.4, Absolute Granulocytes 9.1 H, Absolute Lymphocytes 1.1 L, Absolute Monocytes 0.7 H, Absolute Eosinophils 0, Absolute Basophils 0 Microbiology 03/13 15 URINE ROUT: Urine Culture - COMP 03/12 2045 BLOOD: Blood Culture - RES 03/12 2035 BLOOD: Blood Culture - RES 03/12 2013 LOWER RESP: Respiratory Culture - CAN Cancelled: SPECIMEN NOT RECEIVED IN LABORATORY 03/12 2013 LOWER RESP: Gram Stain - CAN Cancelled: SPECIMEN NOT RECEIVED IN LABORATORY Microbiology 03/13 15 URINE ROUT: Urine Culture - COMP 03/12 2045 BLOOD: Blood Culture - RES 03/12 2035 BLOOD: Blood Culture - RES 03/12 2013 LOWER RESP: Respiratory Culture - CAN Cancelled: SPECIMEN NOT RECEIVED IN LABORATORY 03/12 2013 LOWER RESP: Gram Stain - CAN Cancelled: SPECIMEN NOT RECEIVED IN LABORATORY Vital Signs Date Time Temp Pulse Resp B/P B/P Pulse O2 O2 Flow FiO2 Mean Ox Delivery Rate 03/15 1613 98.6 86 18 131/70 03/15 1422 98.6 86 18 131/70 99 03/15 1103 98.9 03/15 0633 99.3 74 20 106/70 98 Room Air 03/15 0430 71 100/60 99 Room Air 03/14 2131 99.1 03/14 2104 100.3 03/14 2051 100.3 82 18 96/64 98 Room Air
== END 2018-03-15 17:58 | disposition short-term general hospital (02) | DRG 282 ==
LOC: ERH 00:14 → ERHI 02:25 → 2NB 02:25 → ENRESERV 13:32 → CANRESERV 13:32 → ENRESERV 15:13 → EDBEDREQ 15:22 → ENTRNSPT 16:14 → EDTRNSPTSTS 16:25 → EDTRNSPT 16:25 → 2NB 16:31 → CMPTRNSPT 16:47 → 2NB 03-05 22:30
PROVIDERS: Hospitalist; Internal Medicine; Pediatrics; Physical Medicine & Rehabilitation Pain Medicine; Preventive Medicine Addiction Medicine; Preventive Medicine Public Health & General Preventive Medicine; Student in an Organized Health Care Education/Training Program
PROC: 0F9G3ZX Drainage of Pancreas, Percutaneous Approach, Diagnostic (ICD-10-PCS; principal; 2018-02-20)
PROC: 3E0436Z Introduction of Nutritional Substance into Central Vein, Percutaneous Approach (ICD-10-PCS; 2018-02-20)
PROC: 02HV33Z Insertion of Infusion Device into Superior Vena Cava, Percutaneous Approach (ICD-10-PCS; 2018-02-20)
DX: K85.92 Acute pancreatitis with infected necrosis, unspecified (principal); K86.3 Pseudocyst of pancreas; J90 Pleural effusion, not elsewhere classified; I10 Essential (primary) hypertension; Z90.49 Acquired absence of other specified parts of digestive tract; K21.9 Gastro-esophageal reflux disease without esophagitis; M10.9 Gout, unspecified; F41.9 Anxiety disorder, unspecified; B96.89 Other specified bacterial agents as the cause of diseases classified elsewhere; K57.30 Diverticulosis of large intestine without perforation or abscess without bleeding; E87.6 Hypokalemia; K52.9 Noninfective gastroenteritis and colitis, unspecified; D64.9 Anemia, unspecified; E87.1 Hypo-osmolality and hyponatremia; R74.0 Nonspecific elevation of levels of transaminase and lactic acid dehydrogenase [LDH]; F17.210 Nicotine dependence, cigarettes, uncomplicated; Z87.442 Personal history of urinary calculi; Z88.8 Allergy status to other drugs, medicaments and biological substances
CPT/HCPCS: 2NBP; 74181; 87075; 36415; 36592; 71045; 71046; 74018; 74021; 74176; 74177; 81001; 81003; 82436; 87015; 87040; 87045; 87070; 87086; 87328; 87329; 87899; 87899-59; 93005; 93010; 96374; 96375; 96376; C1769; G0480; J0131; J0696; J1644; J1815; J1885; J2001; J2405; J2765; J2997; J3250; J7040; J7120